=== PATIENT | female | born 1970 | race Caucasian/White ===

== ENCOUNTER 2021-11-20 14:42 | Emergency (ER) | payer MEDICAID, SELFPAY ==
[2021-11-20 14:46] VITALS: BP 166/103; PULSE 94; RESP 18; TEMP 36.9; O2SAT 100; BMI 22.8
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
[2021-11-20 15:46] VITALS: BP 144/109; PULSE 90
== END 2021-11-20 15:46 | disposition home or self-care (01) ==
PROVIDERS: Emergency Provider Emergency Medicine; Visit Provider Emergency Medicine
DX: Z04.1 Encounter for examination and observation following transport accident (principal); I10 Essential (primary) hypertension; F17.210 Nicotine dependence, cigarettes, uncomplicated; V48.5XXA Car driver injured in noncollision transport accident in traffic accident, 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
CPT/HCPCS: 99284

== ENCOUNTER 2022-07-30 21:03 | Emergency (ER) | payer MEDICAID, SELFPAY ==
[2022-07-30 21:04] VITALS: BP 163/96; PULSE 91; RESP 18; TEMP 36.5; O2SAT 100; O2SAT 96; BMI 27.1
--- NOTE | 2022-07-30 21:29 | CT_ITS ---
INDICATION: Pain EXAMINATION: CT Head or Brain W/O Contrast Injection TECHNIQUE: Multiple axial images were obtained of the head without intravenous contrast. A radiation dose optimization technique was used for this scan. IV Contrast dosage and agent: None. COMPARISON: None FINDINGS: BRAIN PARENCHYMA: No intra- or extra-axial hemorrhage. No evidence of acute major territorial infarct. No intracranial mass or mass effect. There is preservation of the vazquez/white matter interface. Posterior fossa structures are unremarkable. CSF SPACES: Appropriate for age. No hydrocephalus. Basal cisterns are patent. CALVARIUM, SKULL BASE, PARANASAL SINUSES AND MASTOID AIR CELLS: Calvarium is intact. No acute findings within imaged paranasal sinuses. Mastoid air cells are well-pneumatized. ORBITS: Unremarkable. CT/Brain/Head without Contrast IMPRESSION: Negative unenhanced head CT Electronically Signed: Stefano Em MD at 23:30 EDT ,
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
[2022-07-30] MEDS: 0.9% Normal Saline 1,000 ML 999 ML IV (22:58)
[2022-07-30 23:04] VITALS: BP 132/72; PULSE 77; RESP 16; O2SAT 97
[2022-07-30] MEDS: DiphenhydrAMINE 50 MG/ML Syringe 25 MG IV (23:59)
[2022-07-30] MEDS: proCHLORPERazine 10 MG/2 ML Vial IV (23:59)
[2022-07-30] MEDS: Ketorolac 30 MG/ML Syringe IV (23:59)
[2022-07-31 00:43] VITALS: BP 123/75; PULSE 88; RESP 16; TEMP 36.8; O2SAT 97
== END 2022-07-31 00:53 | disposition home or self-care (01) ==
PROVIDERS: Emergency Provider Emergency Medicine; Visit Provider Emergency Medicine
DX: S09.90XA Unspecified injury of head, 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 (principal); F17.210 Nicotine dependence, cigarettes, uncomplicated; V43.52XA Car driver injured in collision with other type car in traffic accident, 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
CPT/HCPCS: 70450; 96361; 96374; 96375; 99285; J7030; A4216

== ENCOUNTER 2022-09-02 23:50 | Emergency (ER) | payer MEDICAID, SELFPAY ==
[2022-09-02 23:52] VITALS: BP 156/104; PULSE 103; RESP 18; TEMP 36.3; O2SAT 99; BMI 26.4
--- NOTE | 2022-09-03 00:04 | CT_ITS ---
EXAM: CT ABDOMEN AND PELVIS WITHOUT INTRAVENOUS CONTRAST CLINICAL INDICATION: Kidney Stone TECHNIQUE: Helically acquired images were obtained of the abdomen and pelvis without intravenous contrast. This CT exam was performed using one or more of the following dose reduction techniques: automated exposure control, adjustment of the mA and/or kV according to patient size, and/or use of iterative reconstruction technique. RADIATION DOSE: CTDIvol = 8.2 mGy, DLP = 375.07 mGy-cm COMPARISON: No relevant prior studies available. FINDINGS: LOWER THORAX: Unremarkable. Lung bases are clear. No cardiomegaly. No significant pericardial effusion. ABDOMEN: LIVER: Unremarkable. Homogeneous. GALLBLADDER AND BILE DUCTS: Unremarkable. No calcified gallstones. No gallbladder distention or wall edema. No intra- or extrahepatic biliary ductal dilation. PANCREAS: Unremarkable. No focal cystic mass. SPLEEN: Unremarkable. Normal size without focal cystic or solid mass. ADRENALS: Unremarkable. No nodules. KIDNEYS AND URETERS: Exophytic presumed 2.1 cm cyst at the upper pole of the right kidney, Hounsfield units 18. ACR White Paper guidelines (Heryisel, et al. JACR 2018; 15(2):264-273) suggest no follow-up is necessary. Normal renal size and position. No hydronephrosis. STOMACH AND BOWEL: No oral or rectal contrast is present. Mild fluid and gas in the stomach and small bowel. Moderate stool in the proximal half of the colon, mild fluid, gas and stool in the distal colon, mild gas in the rectum. Moderate diverticulosis of the sigmoid colon, no evidence of acute diverticulitis. No stomach or bowel distention. PELVIS: APPENDIX: Nonvisualized appendix. BLADDER: Unremarkable. REPRODUCTIVE: Hysterectomy. ABDOMEN and PELVIS: INTRAPERITONEAL SPACE: Unremarkable. No ascites or other fluid collection. No free air. BONES/JOINTS: Postoperative change at the lumbosacral junction and mild grade 1 anterolisthesis of L4 with respect to L5, no evidence of high-grade spinal stenosis or destructive bone lesion. No suspicious lytic or blastic abnormality. SOFT TISSUES: Unremarkable. No discrete abdominal or pelvic wall hernia. VASCULATURE: Mild aortoiliac atherosclerotic calcification. No aneurysm or dissection. LYMPH NODES: Unremarkable. No enlarged lymph nodes. OTHER FINDINGS: None. CT/Abdomen/Pelvis without Cont IMPRESSION: 1. Nonspecific findings. 2. No urinary tract stones or hydronephrosis. 3. Hysterectomy. Nonvisualized appendix. 4. Moderate stool in the proximal half of the colon. Moderate sigmoid diverticulosis. No evidence of diverticulitis. 5. Postoperative spine changes and L4 spondylolisthesis. Electronically Signed: Sarita Simmons MD at 1:59 EDT ,
--- NOTE | 2022-09-03 00:05 | EX.ED.DYSGE1 ---
HPI History of Present Illness Chief Complaint: Other, Pain/Inj Narrative Narrative: Patient here with friend sent over from urgent care. Intermittent left flank pain for 2 days wraps around her abdomen at times. No nausea or vomiting. States decreased urine output states only urinated once since yesterday. Denies history of kidney failure. Denies swelling. Denies history of kidney stones. 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 History of anxiety. States she does not take all her medications. She is on Celebrex and gabapentin for her neck. Denies fevers or chills. Went to urgent care states pain started to the right side. No trauma. No pain down her legs. No loss of bowel or bladder control. Prior similar symptoms: No PFSH PFSH Home Medications cefuroxime axetil 500 mg tablet 500 mg PO BID #14 tabs 09/03/22 [Rx Last Taken Unknown] Allergy/AdvReac Type Severity Reaction Status Date / Time acetaminophen [From Vicodin] Allergy Rash Verified 09/02/22 23:52 hydrocodone [From Vicodin] Allergy Rash Verified 09/02/22 23:52 soap Allergy Hives Verified 09/02/22 23:52 tramadol Allergy Rash Verified 09/02/22 23:52 Social History Smoking Status: Current every day smoker tobacco type: cigarettes ROS ROS ED Constitutional Constitutional ED: Denies chills, fever(s) or sweats Eyes Eyes: Denies change in vision ENT ENT ED: Denies dysphagia or sore throat Cardiovascular Cardiovascular: Denies chest pain, leg edema, palpitations or racing heartbeat Respiratory/Chest Respiratory/Chest: Denies cough, dyspnea or dyspnea on exertion Gastrointestinal Gastrointestinal: Denies abdominal pain, diarrhea, nausea or vomiting Genitourinary Genitourinary ED: Reports other Details: Decreased urine output ; Denies dysuria, hematuria or urinary frequency Musculoskeletal Musculoskeletal: Reports back pain; Denies extremity pain or neck pain Integumentary Denies rash or wounds Neurologic Neurologic: Denies headache(s), paresthesias or weakness EXAM Physical Exam Const Vital Signs: 09/02/22 23:52 09/03/22 00:06 Temperature 97.3 F L Temperature Source Temporal Pulse Rate 103 H Respiratory Rate 18 Respiratory Effort Normal Non-Labored Blood Pressure 156/104 H Blood Pressure Mean 121 Pulse Ox 99 Positive well nourished and well developed General Appearance ED: well developed and NAD HEENT Reports moist mucous membranes normocephalic and atraumatic Eyes PERRL, EOMs intact bilaterally and conjunctivae normal General Eye ED: Yes normal appearance of both eyes Neck no lymphadenopathy and supple General: Negative for tenderness Chest Wall Chest: Negative for tenderness Resp normal respiratory effort and normal air movement Effort and Inspection: symmetric chest movement; Negative for respiratory distress Cardio regular rate, regular rhythm and no murmurs Peripheral Pulses: pulses 2+ throughout GI normal to inspection, nondistended, normoactive bowel sounds and non-tender Palpation: Negative for guarding or rebound tenderness present Back/Spine no CVA tenderness and no thoracic nor lumbar tenderness Back/Spine Narrative: Healed previous scar lower lumbar, no CVA tenderness, no rash. Extremity normal to inspection General Extremety ED: Negative for edema or tenderness General Extremity: Negative for edema Neuro oriented x3 and no sensory deficits noted Sensorium / Orientation: awake and alert Skin no rashes or lesions noted and no wounds MDM MDM MDM Narrative Medical decision making narrative: Interventions / MDM: Differential diagnosis: ESCOBAR, UTI, kidney stones Diagnosis considered but do not suspect: N/A My EKG interpretation: N/A Imaging independently reviewed and interpreted by myself: CT abdomen pelvis: No obstructive uropathy. External documents reviewed: N/A Test considered but not ordered:N/A ED course: Patient declines any pain medications currently. We will start IV fluids we will check labs and urine. CT flank ordered for further evaluation. 0115: Patient requested privacy, had her friend stepped out. 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 She does not feel any threats at the home. CT scan interpreted by myself shows no acute process, no obstructive uropathy. Normal kidney function with a creatinine 0.87. White count 11.9 no left shift. Urine did not nitrites along with leukocytes. Urine culture sent. She is covered Rocephin IV antibiotic, will start Toradol which she agrees. Discussed complicated UTI coverage. Discussed monitoring for rash for shingles. Re-evaluation: 0225: Patient feeling much better she still states she is sleepy. Pains controlled. Status post antibiotics. Prescription cefuroxime sent to her pharmacy should continue Celebrex. Outpatient follow-up with return precautions. All questions were answered. Disposition discussed with patient/family/significant other: Patient Case discussed with consulting clinician: N/A This note was generated with [employer] dictation software. It may contain incorrect words, spelling, and punctuation that were not noted in checking the note before signing. Lab Data Labs: Laboratory Results - last 24 hr 09/03/22 00:19 WBC 11.9 H RBC 4.74 Hgb 14.1 Hct 43.5 MCV 91.8 MCH 29.7 MCHC 32.4 RDW Std Deviation 42.2 RDW Coeff of Tay 12.6 Plt Count 341 MPV 9.5 Immature Gran % (Auto) 0.300 Neut % (Auto) 60.2 Lymph % (Auto) 28.7 [place] % (Auto) 9.5 Eos % (Auto) 0.8 Baso % (Auto) 0.5 Absolute Neuts (auto) 7.1 Absolute Lymphs (auto) 3.40 Nucleated RBC % 0 Sodium 137 Potassium 3.6 Chloride 105 Carbon Dioxide 24.0 Anion Gap 8 BUN 12 Creatinine 0.87 Estim Creat Clear Calc 59.15 Est GFR (MDRD) Af Amer 88 Est GFR (MDRD) Non-Af 72 BUN/Creatinine Ratio 13.8 Glucose 210 H Calcium 9.2 Urine Color Yellow Urine Clarity Clear Urine pH 5.0 Ur Specific [place] 1.025 Urine Protein 15 H Urine Glucose (UA) Normal Urine Ketones Negative Urine Occult Blood 10 H Urine Nitrite Positive H Urine Bilirubin Negative Urine Urobilinogen Normal Ur Leukocyte Esterase 25 H Urine RBC 0-5 SEEN Urine WBC 0-5 SEEN Ur Squamous Epith Cells 0 SEEN Calcium Oxalate Crystal 1+ Urine Bacteria 3+ Urine Mucus 0 SEEN Radiography Diagnostic Testing: Clinical Impression(s) from Imaging Studies Abdomen/Pelvis CT 09/03/22 00:04 IMPRESSION: 1. Nonspecific findings. 2. No urinary tract stones or hydronephrosis. 3. Hysterectomy. Nonvisualized appendix. 4. Moderate stool in the proximal half of the colon. Moderate sigmoid diverticulosis. No evidence of diverticulitis. 5. Postoperative spine changes and L4 spondylolisthesis. Electronically Signed: Sarita Simmons MD at 1:59 EDT , Discharge Plan Triage Chief Complaint: Other, Pain/Inj ED Provider: Mikel Downs Dx/Rx/DC Orders Clinical Impression: Acute flank pain, Complicated urinary tract infection, Renal cyst, right Instructions: ED Pyelonephritis, Female (Adult) Prescriptions: New cefuroxime axetil 500 mg tablet 500 mg PO BID Qty: 14 0RF Primary Care Provider: Mavis Griffin Referrals: Care Physician,No Primary [Non-Staff] - Mavis Griffin, [employer] [Primary Care Provider] - 1 Week if not improving Activity Restrictions/Additional Instructions: Urine with noted infection. Creatinine needing 0.87. White count 11.9. Glucose 210. CT scan abdomen pelvis was negative for kidney stones. Noted 2.1 cm right renal cyst. Status post Rocephin IV. Take and finish your antibiotic as prescribed. Continue your Celebrex. Follow-up with your doctor. Return if worsening symptoms. Disposition Disposition: Home, Self Care
[2022-09-03] MEDS: 0.9% Normal Saline 1,000 ML 999 ML IV (00:23)
[2022-09-03 00:26] LABS: Mucous, Urine 0 SEEN /hpf (<or=2+); Squamous Epithelial Cells - UA 0 SEEN /hpf (5-10)
[2022-09-03 00:27] LABS: Absolute Neutrophil Count 7.1 X10^3/uL (2.0-7.7); Basophil# 0.06 X10^3/uL; Basophil% 0.5 % (0-1); Eosinophils% 0.8 % (0-5); Hematocrit 43.5 % (37-47); Hemoglobin 14.1 g/dL (12.0-15.0); Lymphocyte % 28.7 % (19-41); Mean Corp Hgb Conc 32.4 g/dL (32-36); Mean Corpuscular Hgb 29.7 pg (27.0-32.0); Mean Corpuscular Volume 91.8 fL (81-99); Mean Platelet Vol. 9.5 fl (6.2-12.0); Monocyte# 1.12 X10^3/uL; Monocyte% 9.5 % (0-10); NRBC Flagged by Analyzer 0 % (0-5); Neutrophil # 7.13 X10^3/uL (2.7-7.7); Neutrophil % 60.2 % (47-70); Platelet Count 341 K/mm3 (150-450); RBC Distribution Width CV 12.6 % (11.6-14.6); RBC Distribution Width SD 42.2 fl (35.1-43.9); Red Blood Count 4.74 M/mm3 (4.2-5.4); White Blood Count 11.9 K/mm3 (4.4-11.0)
[2022-09-03 00:40] LABS: Anion Gap 8 (5-15); BUN 12 mg/dL (7-18); BUN/Creat Ratio 13.8 RATIO (10-20); Calcium,Total 9.2 mg/dL (8.5-10.1); Chloride 105 mmol/L (98-107); Color, Urine Yellow (Yellow); Creatinine, Serum 0.87 mg/dL (0.55-1.02); EST Glomerular Filtration Rate 72 mL/min (>60); Est Glom Filt Rate - Afr Amer 88 mL/min (>60); Estimated Creatinine Clearance 59.15 ml/min; Glucose 210 mg/dL (74-106); Glucose, Dipstick Normal (Normal); Ketone-Dipstick Negative (Negative); Leukocyte Esterase-Dipstick 25 /ul (Negative); Nitrite-Dipstick Positive (Negative); Occult Blood-Urine 10 /ul (Negative); Potassium 3.6 mmol/L (3.5-5.1); Protein-Dipstick 15 mg/dl (Negative); Sodium Level 137 mmol/L (136-145); Specific Gravity, Urine 1.025 (1.002-1.030); Urine Bilirubin Dipstick Negative (Negative); Urine Clarity Clear (Clear); Urine Urobilinogen Normal (Normal)
[2022-09-03 01:09] LABS: Bacteria 3+ /hpf (None Seen); Calcium Oxalate Crystals Ur 1+ /hpf (<or=2+); Red Blood Cells-Urine 0-5 SEEN /hpf (0-5); White Blood Cells 0-5 SEEN /hpf (0-5)
[2022-09-03] MEDS: Ketorolac 15 MG/ML Vial IV (01:38)
[2022-09-03] MEDS: Ceftriaxone 1 GM/50 ML BAG IV (01:39)
[2022-09-03 01:50] VITALS: RESP 16
== END 2022-09-03 02:39 | disposition home or self-care (01) ==
PROVIDERS: Emergency Provider Emergency Medicine; PCP Nurse Practitioner Family; Visit Provider Emergency Medicine
DX: R10.9 Unspecified abdominal pain (principal); N39.0 Urinary tract infection, site not specified; N28.1 Cyst of kidney, acquired; F17.210 Nicotine dependence, cigarettes, uncomplicated
CPT/HCPCS: 74176; 80048; 81001; 85025; 87077; 87086; 87088; 87186; 96365; 96375; 99283; J7030; J7040; A4216

== ENCOUNTER → 2023-08-22 | Outpatient (CLI) | payer MEDICAID, SELFPAY ==
[2023-08-22 12:32] LABS: Absolute Lymphocyte Count 2.64 X10^3/uL (0.83-4.51); Absolute Neutrophil Count 5.4 X10^3/uL (2.0-7.7); Basophil# 0.08 X10^3/uL; Basophil% 0.9 % (0-1); Eosinophil# 0.06 X10^3/uL; Eosinophils% 0.7 % (0-5); Hematocrit 41.4 % (37-47); Hemoglobin 13.6 g/dL (12.0-15.0); Lymphocyte # 2.64 X10^3/ul (0.83-4.51); Lymphocyte % 30.3 % (19-41); Mean Corp Hgb Conc 32.9 g/dL (32-36); Mean Corpuscular Hgb 28.5 pg (27.0-32.0); Mean Corpuscular Volume 86.8 fL (81-99); Mean Platelet Vol. 10.3 fl (6.2-12.0); Monocyte% 5.7 % (0-10); NRBC Flagged by Analyzer 0 % (0-5); Neutrophil # 5.39 X10^3/uL (2.7-7.7); Neutrophil % 62.1 % (47-70); Platelet Count 299 K/mm3 (150-450); RBC Distribution Width CV 12.4 % (11.6-14.6); RBC Distribution Width SD 39.2 fl (35.1-43.9); Red Blood Count 4.77 M/mm3 (4.2-5.4); White Blood Count 8.7 K/mm3 (4.4-11.0)
[2023-08-22 13:00] LABS: Vitamin D,25 Hydroxy 23.7 ng/mL
[2023-08-22 13:10] LABS: ALB/GLOB Ratio 1.1 RATIO (0.9-2.4); AST(SGOT) 10 U/L (15-37); Alanine Aminotransfer ALT/SGPT 23 U/L (13-56); Albumin, Serum 3.6 g/dL (3.2-5.0); Alkaline Phosphatase 182 U/L (45-117); Anion Gap 7 (5-15); BUN 8 mg/dL (7-18); BUN/Creat Ratio 11.9 RATIO (10-20); Calcium,Total 9.2 mg/dL (8.5-10.1); Chloride 102 mmol/L (98-107); Cholesterol 117 mg/dL (200); Creatinine, Serum 0.67 mg/dL (0.55-1.02); EST Glomerular Filtration Rate 97 mL/min (>60); Est Glom Filt Rate - Afr Amer 117 mL/min (>60); Globulin 3.3 g/dL (2.2-4.2); Glucose 404 mg/dL (74-106); High Density Lipoprotein 37 mg/dL; Potassium 3.6 mmol/L (3.5-5.1); Protein, Total 6.9 g/dL (6.4-8.2); Sodium Level 135 mmol/L (136-145); Thyroid Stim Hormone (TSH) 1.05 uIU/mL (0.358-3.74); Triglycerides 101 mg/dL; Very Low Density Lipoprotein 20 mg/dL (5-40)
== END | disposition home or self-care (01) ==
LOC: VSLAB 10:43
PROVIDERS: PCP Nurse Practitioner Family; Visit Provider Nurse Practitioner Family
DX: E11.65 Type 2 diabetes mellitus with hyperglycemia (principal); E55.9 Vitamin D deficiency, unspecified
CPT/HCPCS: 36415; 80053; 80061; 82043; 82306; 84443; 85025

== ENCOUNTER → 2023-12-05 | Outpatient (CLI) | payer MEDICAID, SELFPAY ==
[2023-12-05 12:55] LABS: Absolute Lymphocyte Count 2.17 X10^3/uL (0.83-4.51); Absolute Neutrophil Count 7.8 X10^3/uL (2.0-7.7); Basophil# 0.11 X10^3/uL; Eosinophil# 0.07 X10^3/uL; Eosinophils% 0.6 % (0-5); Hematocrit 43.1 % (37-47); Hemoglobin 13.8 g/dL (12.0-15.0); Lymphocyte # 2.17 X10^3/ul (0.83-4.51); Mean Corpuscular Hgb 28.4 pg (27.0-32.0); Mean Corpuscular Volume 88.7 fL (81-99); Mean Platelet Vol. 9.7 fl (6.2-12.0); Monocyte# 0.63 X10^3/uL; Monocyte% 5.8 % (0-10); NRBC Flagged by Analyzer 0 % (0-5); Neutrophil # 7.81 X10^3/uL (2.7-7.7); Neutrophil % 72.1 % (47-70); Platelet Count 339 K/mm3 (150-450); RBC Distribution Width CV 12.6 % (11.6-14.6); RBC Distribution Width SD 40.5 fl (35.1-43.9); Red Blood Count 4.86 M/mm3 (4.2-5.4); White Blood Count 10.8 K/mm3 (4.4-11.0)
[2023-12-05 13:09] LABS: Vitamin D,25 Hydroxy 35.3 ng/mL
[2023-12-05 13:43] LABS: AST(SGOT) 18 U/L (15-37); Alanine Aminotransfer ALT/SGPT 28 U/L (13-56); Albumin, Serum 3.5 g/dL (3.2-5.0); Alkaline Phosphatase 177 U/L (45-117); Anion Gap 9 (5-15); BUN 12 mg/dL (7-18); BUN/Creat Ratio 16.1 RATIO (10-20); Calcium,Total 9.3 mg/dL (8.5-10.1); Chloride 102 mmol/L (98-107); Creatinine, Serum 0.75 mg/dL (0.55-1.02); EST Glomerular Filtration Rate 86 mL/min (>60); Est Glom Filt Rate - Afr Amer 104 mL/min (>60); Globulin 3.6 g/dL (2.2-4.2); Glucose 371 mg/dL (74-106); Potassium 4.1 mmol/L (3.5-5.1); Protein, Total 7.1 g/dL (6.4-8.2); Sodium Level 132 mmol/L (136-145); Thyroid Stim Hormone (TSH) 0.815 uIU/mL (0.358-3.740)
== END | disposition home or self-care (01) ==
LOC: VSLAB 09:04
PROVIDERS: PCP Nurse Practitioner Family; Visit Provider Nurse Practitioner Family
DX: E11.65 Type 2 diabetes mellitus with hyperglycemia (principal); E55.9 Vitamin D deficiency, unspecified; I10 Essential (primary) hypertension; R10.9 Unspecified abdominal pain
CPT/HCPCS: 36415; 80053; 82306; 84443; 85025

== ENCOUNTER → 2024-01-03 | Outpatient (CLI) | payer MEDICAID, SELFPAY ==
[2024-01-03 12:24] LABS: Bacteria 0 SEEN /hpf (None Seen); Mucous, Urine 0 SEEN /hpf (<or=2+); White Blood Cells 0 SEEN /hpf (0-5)
[2024-01-03 12:45] LABS: Absolute Neutrophil Count 5.7 X10^3/uL (2.0-7.7); Basophil# 0.08 X10^3/uL; Basophil% 0.8 % (0-1); Eosinophil# 0.06 X10^3/uL; Eosinophils% 0.6 % (0-5); Hematocrit 43.8 % (37-47); Hemoglobin 14.4 g/dL (12.0-15.0); Lymphocyte % 31.8 % (19-41); Mean Corp Hgb Conc 32.9 g/dL (32-36); Mean Corpuscular Hgb 28.9 pg (27.0-32.0); Mean Platelet Vol. 9.5 fl (6.2-12.0); Monocyte% 8.2 % (0-10); NRBC Flagged by Analyzer 0 % (0-5); Neutrophil # 5.68 X10^3/uL (2.7-7.7); Neutrophil % 58.4 % (47-70); Platelet Count 335 K/mm3 (150-450); RBC Distribution Width CV 12.8 % (11.6-14.6); RBC Distribution Width SD 41.6 fl (35.1-43.9); Red Blood Count 4.98 M/mm3 (4.2-5.4); White Blood Count 9.7 K/mm3 (4.4-11.0)
[2024-01-03 13:13] LABS: Microalbumin,Random Urine 21.9 mg/L (NO RANGE EST.)
[2024-01-03 13:29] LABS: AST(SGOT) 16 U/L (15-37); Alanine Aminotransfer ALT/SGPT 23 U/L (13-56); Albumin, Serum 3.5 g/dL (3.2-5.0); Alkaline Phosphatase 162 U/L (45-117); Anion Gap 6 (5-15); BUN 13 mg/dL (7-18); Calcium,Total 9.2 mg/dL (8.5-10.1); Chloride 108 mmol/L (98-107); Creatinine, Serum 0.72 mg/dL (0.55-1.02); EST Glomerular Filtration Rate 89 mL/min (>60); Est Glom Filt Rate - Afr Amer 108 mL/min (>60); Globulin 3.6 g/dL (2.2-4.2); Glucose 125 mg/dL (74-106); Potassium 3.7 mmol/L (3.5-5.1); Protein, Total 7.1 g/dL (6.4-8.2); Sodium Level 138 mmol/L (136-145)
[2024-01-03 22:30] LABS: Color, Urine Yellow (Yellow); Glucose, Dipstick Normal (Normal); Ketone-Dipstick 5 mg/dl (Negative); Leukocyte Esterase-Dipstick Negative /ul (Negative); Nitrite-Dipstick Negative (Negative); Occult Blood-Urine Negative /ul (Negative); Protein-Dipstick 30 mg/dl (Negative); Specific Gravity, Urine 1.025 (1.002-1.030); Urine Bilirubin Dipstick Negative (Negative); Urine Clarity Cloudy (Clear); Urine Urobilinogen Normal (Normal)
[2024-01-03 22:37] LABS: Amorphous Sediment 4+; Calcium Oxalate Crystals Ur 1+ /hpf (<or=2+); Red Blood Cells-Urine 0-5 SEEN /hpf (0-5); Squamous Epithelial Cells - UA 0-5 SEEN /hpf (5-10)
== END | disposition home or self-care (01) ==
PROVIDERS: PCP Nurse Practitioner Family; Visit Provider Nurse Practitioner Family
DX: E11.65 Type 2 diabetes mellitus with hyperglycemia (principal); E55.9 Vitamin D deficiency, unspecified; I10 Essential (primary) hypertension; R10.9 Unspecified abdominal pain
CPT/HCPCS: 36415; 80053; 81001; 82043; 82306; 84443; 85025

== ENCOUNTER 2024-04-09 12:17 | Emergency (ER) | payer MEDICAID, SELFPAY ==
[2024-04-09] VITALS (7 sets, daily range): BP systolic 103–157; BP diastolic 64–118; PULSE 78–110; RESP 13–19; TEMP 36.6–36.7; O2SAT 96–100; BMI 23.1
--- NOTE | 2024-04-09 12:37 | EKG12_ITS ---
Test Reason : cp Blood Pressure : */* mmHG Vent. Rate : 97 BPM Atrial Rate : 97 BPM P-R Int : 134 ms QRS Dur : 80 ms QT Int : 366 ms P-R-T Axes : 76 69 74 degrees QTcB Int : 464 ms Normal sinus rhythm Biatrial enlargement Nonspecific ST abnormality Abnormal ECG No previous ECGs available Confirmed by SEA WARD, ALEX ([id number]), index editor NANDINI GONZALES ([id number]) on 04/15/2024 8:24:31 AM Referred By: [facility] Confirmed By: ALEX OSEI MD
[2024-04-09 12:57] LABS: Absolute Lymphocyte Count 2.52 X10^3/uL (0.83-4.51); Absolute Neutrophil Count 6.2 X10^3/uL (2.0-7.7); Basophil# 0.07 X10^3/uL; Basophil% 0.7 % (0-1); Eosinophil# 0.09 X10^3/uL; Eosinophils% 0.9 % (0-5); Hematocrit 39.8 % (37-47); Hemoglobin 13.7 g/dL (12.0-15.0); Lymphocyte # 2.52 X10^3/ul (0.83-4.51); Lymphocyte % 26.5 % (19-41); Mean Corp Hgb Conc 34.4 g/dL (32-36); Mean Corpuscular Hgb 28.9 pg (27.0-32.0); Mean Platelet Vol. 9.5 fl (6.2-12.0); Monocyte# 0.64 X10^3/uL; Monocyte% 6.7 % (0-10); NRBC Flagged by Analyzer 0 % (0-5); Neutrophil # 6.16 X10^3/uL (2.7-7.7); Neutrophil % 64.8 % (47-70); Platelet Count 256 K/mm3 (150-450); RBC Distribution Width CV 12.1 % (11.6-14.6); RBC Distribution Width SD 36.8 fl (35.1-43.9); Red Blood Count 4.74 M/mm3 (4.2-5.4); White Blood Count 9.5 K/mm3 (4.4-11.0)
--- NOTE | 2024-04-09 12:59 | RAD_ITS ---
PROCEDURE: CHEST 1 VIEW (PORTABLE) REASON FOR EXAM: Chest pain. TECHNIQUE: Frontal view of the chest. COMPARISON: None. FINDINGS: The cardiac and mediastinal contours are normal. No acute consolidation, pleural effusion or pneumothorax. The visualized osseous structures demonstrate no acute abnormality. RAD/Chest 1 View (Portable) IMPRESSION: No acute consolidation, pleural effusion or pneumothorax. Reading Location: [id number]
[2024-04-09 13:28] LABS: Anion Gap 8 (5-15); BUN 10 mg/dL (7-18); BUN/Creat Ratio 11.8 RATIO (10-20); Chloride 100 mmol/L (98-107); Creatinine, Serum 0.85 mg/dL (0.55-1.02); EST Glomerular Filtration Rate 74 mL/min (>60); Est Glom Filt Rate - Afr Amer 90 mL/min (>60); Estimated Creatinine Clearance 59.15 ml/min; Glucose 478 mg/dL (74-106); Potassium 3.8 mmol/L (3.5-5.1); Sodium Level 133 mmol/L (136-145); Troponin-I HS (w/2H Reflex) 4 pg/mL (3.0-54.0)
--- NOTE | 2024-04-09 14:13 | ED.VIS.CHEST ---
HPI History of Present Illness Chief Complaint: Chest Pain Narrative Narrative: 54-year-old female presents with chest pain that started this morning. She has past medical history and states that her elevated blood sugars have been happening for months/weeks. This morning she awoke and was very dizzy and lightheaded, and she developed chest pain and pressure. She saw her primary care provider who sent her to the emergency department. She is a smoker, but states she has not had a stress test. She may have been nauseated and feels short of breath. No diaphoresis. No other exacerbating or alleviating factors. PFSH PFSH Home Medications ?Medication ?Instructions ?Recorded ?Last Taken ?Type cefuroxime axetil 500 mg tablet 500 mg PO BID #14 tabs 09/03/22 Unknown Rx Allergy/AdvReac Type Severity Reaction Status Date / Time soap Allergy Hives Verified 04/09/24 13:48 tramadol Allergy Rash Verified 04/09/24 13:48 Social History Smoking Status: Current every day smoker tobacco type: cigarettes ROS ROS ED ROS Narrative Review of systems positive for chest pressure, other times sharp and stabbing. Positive nausea but no vomiting. No diaphoresis. Mild shortness of breath. Continually elevated blood sugars times weeks. EXAM Physical Exam Narrative Exam Narrative: Afebrile. Vital signs noted. Nontoxic-appearing. Cardiovascular examination on my examination reveals a regular rate and rhythm. Lungs clear to auscultation bilaterally. Abdomen is soft and nontender without guarding or rebound. Positive bowel sounds. Neurological examination nonfocal and nonlateralizing. Const Vital Signs: 04/09/24 12:18 04/09/24 12:30 04/09/24 12:30 Temperature 97.8 F Temperature Source Oral Pulse Rate 110 H Respiratory Rate 18 Respiratory Effort Normal Non-Labored Normal Non-Labored Respiratory Pattern Normal Blood Pressure 157/118 H Blood Pressure Mean 131 Pulse Ox 100 Oxygen Delivery Method Room Air 04/09/24 12:37 04/09/24 13:45 04/09/24 14:00 Temperature Temperature Source Pulse Rate 88 91 Respiratory Rate 19 H 16 Respiratory Effort Respiratory Pattern Blood Pressure 140/79 H 142/95 H Blood Pressure Mean 99 110 Pulse Ox 100 96 100 Oxygen Delivery Method Room Air Room Air Room Air 04/09/24 15:19 04/09/24 16:07 Temperature Temperature Source Pulse Rate 82 83 Respiratory Rate 13 14 Respiratory Effort Respiratory Pattern Blood Pressure 148/80 H 103/64 Blood Pressure Mean 102 77 Pulse Ox 99 98 Oxygen Delivery Method Room Air Room Air MDM MDM MDM Narrative Medical decision making narrative: Differential diagnosis includes but not limited to ACS/STEMI versus non-STEMI. Chest pain could also be secondary to nonspecific chest pain versus pneumothorax versus pneumonia. I have a low suspicion for aortic dissection as she has no tearing back pain. Comprehensive workup was pursued. EKG obtained and interpreted by myself independently as normal sinus rhythm at 97 bpm without ectopy or acute ST changes. No STEMI. I reviewed her laboratory work and she has normal white count 9.5 with hemoglobin 13.7, hematocrit 39.8, platelet count 256. Electrolyte panel shows sodium low 133 with potassium normal 3.8, BUN of 10 and creatinine 0.85. While glucose is elevated at 478, her normal anion gap of 8 leads me to have very low suspicion for diabetic ketoacidosis. Initial high-sensitivity troponin is 4. Chest x-ray in 1 view interpreted by myself independently shows no evidence of pneumothorax or pneumonia. I reviewed the radiology report which confirms my independent interpretation. Upon repeat examination, patient states she still having more electric shock type pain down her left arm. I think is probably more of a diabetic neuropathy. She was given gabapentin 100 mg here orally but told that she should get a prescription from her primary care provider as I suspect more of a neuropathic pain. Regarding her elevated blood sugar, she was bolused normal saline 1 L intravenously, and given 6 units of insulin subcutaneously. Her [id number] glucose was 363 around the time of administration. Her blood sugar will be rechecked but is already trending downwards. Her repeat troponin is normal at 5 for a acceptable delta troponin. At this point in time, I do feel she is safe for outpatient stress testing. She will follow-up with her primary care provider. Return instructions to the emergency department were reviewed. Disposition is discharged home in stable condition. History & Record Review Discussion w/independent historian: Patient Lab Data Attestation: I reviewed the patient's lab results. Labs: Laboratory Results - last 24 hr 04/09/24 04/09/24 04/09/24 12:46 15:17 15:38 WBC 9.5 RBC 4.74 Hgb 13.7 Hct 39.8 MCV 84.0 MCH 28.9 MCHC 34.4 RDW Std Deviation 36.8 RDW Coeff of Tay 12.1 Plt Count 256 MPV 9.5 Immature Gran % (Auto) 0.400 Neut % (Auto) 64.8 Lymph % (Auto) 26.5 [place] % (Auto) 6.7 Eos % (Auto) 0.9 Baso % (Auto) 0.7 Absolute Neuts (auto) 6.2 Absolute Lymphs (auto) 2.52 Nucleated RBC % 0 Sodium 133 L Potassium 3.8 Chloride 100 Carbon Dioxide 25.0 Anion Gap 8 BUN 10 Creatinine 0.85 Estim Creat Clear Calc 59.15 Est GFR (MDRD) Af Amer 90 Est GFR (MDRD) Non-Af 74 BUN/Creatinine Ratio 11.8 Glucose 478 H* Calcium 9.0 Troponin I High Sens 4 5 POC Glucose 363 H Radiography Diagnostic Testing: Clinical Impression(s) from Imaging Studies Chest X-Ray 04/09/24 12:59 IMPRESSION: No acute consolidation, pleural effusion or pneumothorax. Reading Location: [facility] Discharge Plan Triage Chief Complaint: Chest Pain Other Complaint: Hypertension ED Provider: Francisco Martins Dx/Rx/DC Orders Clinical Impression: Chest pain, Hyperglycemia, Left arm pain Instructions: ED Chest Pain, Uncertain Cause, ED Diabetic Hyperglycemia, ED Pain, Acute, Uncertain Cause Prescriptions: No Action cefuroxime axetil 500 mg tablet 500 mg PO BID Qty: 14 0RF Primary Care Provider: Pauline Dawson Referrals: Pauline Dawson, [employer] [Primary Care Provider] - 3-5 Days Activity Restrictions/Additional Instructions: Follow-up with your primary care provider regarding outpatient stress testing for your chest pain. Return to the emergency department with increased pain, new or worsening symptoms. You may want to inquire about medications for diabetic neuropathy as well. Print Language: Lithuanian Disposition Disposition: Home, Self Care
[2024-04-09 14:49] LABS: Reflex Troponin-HS? (from REC) Y
[2024-04-09] MEDS: 0.9% Normal Saline (1000mL) 1,000 ML 999 ML IV (15:30)
[2024-04-09] MEDS: Insulin Lispro 100 UNIT/ML INSULN.PEN 6 UNIT SC (15:32)
[2024-04-09 15:56] LABS: Troponin-I HS 5 pg/mL (3.0-54.0)
[2024-04-09 15:58] LABS: Bedside Glucose 363 mg/dL (74-106)
[2024-04-09 16:49] LABS: Bedside Glucose 300 mg/dL (74-106)
== END 2024-04-09 16:45 | disposition home or self-care (01) ==
PROVIDERS: Emergency Provider Emergency Medicine; PCP Nurse Practitioner Family; Visit Provider Emergency Medicine
DX: R07.89 Other chest pain (principal); M79.602 Pain in left arm; R73.9 Hyperglycemia, unspecified; F17.210 Nicotine dependence, cigarettes, uncomplicated
CPT/HCPCS: 71045; 80048; 82962; 84484; 85025; 93005; 96360; 96372; 99285

== ENCOUNTER 2025-01-21 18:51 | Emergency (ER) | payer MEDICAID, SELFPAY ==
[2025-01-21 18:53] VITALS: BP 116/90; PULSE 100; RESP 18; TEMP 36.1; O2SAT 99
--- NOTE | 2025-01-21 19:35 | RAD_ITS ---
PROCEDURE: TIBIA FIBULA 2 VIEWS 01/21/2025 REASON FOR EXAM: PAIN, FALL TECHNIQUE: Procedure Code: RADTF Modality: DX Procedure: TIBIA FIBULA 2 VIEWS Laterality: Left COMPARISON: None. FINDINGS: BONES: No acute fracture or focal osseous lesion. Small achilles tendon insertional enthesophyte. JOINTS: No dislocation. The joint spaces are normal. SOFT TISSUES: Small soft tissue calcifications noted in the lateral calf and distal jain. RAD/Tibia & Fibula 2 Views IMPRESSION: NO ACUTE FRACTURE OR DISLOCATION. Reading Location: [id number]
--- NOTE | 2025-01-21 19:35 | RAD_ITS ---
PROCEDURE: ANKLE MIN 3 VIEWS 01/21/2025 REASON FOR EXAM: PAIN, FALL TECHNIQUE: Procedure Code: RADANK Modality: DX Procedure: ANKLE MIN 3 VIEWS Laterality: Left COMPARISON: None. FINDINGS: BONES: No acute fracture or focal osseous lesion. Small achilles tendon insertional enthesophyte. JOINTS: No dislocation. The joint spaces are normal. SOFT TISSUES: The soft tissues are unremarkable. RAD/Ankle min 3 Views IMPRESSION: NO ACUTE FRACTURE OR DISLOCATION. Reading Location: [id number]
--- OUTSIDE RECORDS SUMMARY | 2025-01-21 19:41 | XMS RPT_ITS | CCD ---
Author Organization [facility] Care Team Providers Care Credit Support Specialist Name Role Phone Donna Kumar Unavailable Unavailable Donna Kumar Unavailable Unavailable Jose A Aguilar Unavailable Unavailable Unavailable Primary Care Provider UnavailDonna Alvarado Primary Care Unavailable Ruben Horan Attending Unavailable Donna Kumar Referring Unavailable Zaire Talbot Attending Unavailable Zaire Talbot Attending Unavailable Elaine Mckeon Attending Unavailable CHINA Rubio Attending Unavail able Valentine Burgess Attending Unavailable Valentine Burgess Attending Unavailable Unavailable Primary Care Provider UnavailDonna Alvarado DO Primary Care Provider Ivis Head [facility], [facility] Primary Care UnavailFrancisco Ye Attending Unavailable Adilene VSC, Pauline Attending Unavailabl e Adilene VSC, Pauline Primary Care Unavailabl e Adilene VSC, Pauline Primary Care Unavailabl e Adilene VSC, Pauline Attending Unavailabl e Adilene VSC, [facility] Primary Care Unavailabl e Adilene VSC, Pauline Attending Unavailvincent e Sandor FINISHED CLOTH EXAMINER, Zebulubinu Unavailable Donna Kumar DO Primary Care Provider Renee Lau RN Unavailable Unavailable Renee Spence RN Unavailable Unavailable DONNA KUMAR Primary Care Unavailable ELVIA, CYNDEE Admitting Unavailable XI GILLESPIE Attending Unavailable CAROLA MCKINNEY Consulting Unavailable GEGE HAWKINS Consulting Unavailable JAKE JHA Consulting Unavailable ELVIA, CYNDEE Admitting Unavailable NATAHCA MOSER Consulting Unavailable REMIGIO, RAY Attending Unavailable DONNA KUMAR Primary Care Unavailable LISA CASTORENA Referring Unavailable DONNA KUMAR Primary Care Unavailable Beam FINISHED CLOTH EXAMINER, Zebulun Unavailable Rose Marie WARD, She Weyon Unavailable Brain ELAINE, Nandini Unavailable Ari ELAINE, Anastasia Unavailable Unavailable Junior WARD, Leodan Hamilton Unavailable [facility] Primary Care Unavailable MARYANNE HANNON Attending Unavailable MARYANNE HANNON Admitting Unavailable MA, SHE WEE Referring Unavailable MA, SHE WEE Referring Unavailable MA, SHE WEE Referring Unavailable ADILENE, PAULINE Primary Care Unavailable BEAM, ZEBULUN Referring Unavailable MA, SHE WEE Referring Unavailable SEO, LEODAN A Attending Unavailable MA, SHE WEE Referring Unavailable MA, SHE WEE Referring Unavailable MA, SHE WEE Referring Unavailable GISELLE MCMULLEN Attending Unavailable MA, SHE WEE Referring Unavailable [facility] Primary Care Unavailable MA, SHE WEE Referring Unavailable ADILENE, PAULINE Primary Care Unavailable GERI HUNG Attending Unavailable BEAM, ZEBULUN Referring Unavailable ADILENE, PAULINE Primary Care Unavailable KAREN PENA Attending Unavailable [facility] Primary Care Unavailable MCGHEE, ALEXANDREA Attending Unavailable [facility] Primary Care Unavailable MA, SHE WEE Referring Unavailable ADILENE, PAULINE Primary Care Unavailable MA, SHE WEE Attending Unavailable MARIE, KAREN Referring Unavailable SEO, LEODAN A Attending Unavailable [facility] Primary Care Unavailable MCGHEE, ALEXANDREA Referring Unavailable [facility] Primary Care Unavailable MCGHEE, ALEXANDREA Attending Unavailable MCGHEE, ALEXANDREA Referring Unavailable [facility] Primary Care Unavailable MA, SHE WEE Referring Unavailable SEO, LEODAN A Attending Unavailable MA, SHE WEE Referring Unavailable MA, SHE WEE Referring Unavailable ADILENE, PAULINE Primary Care Unavailable MCGHEE, ALEXANDREA Referring Unavailable ADILENE, PAULINE Primary Care Unavailable Allergies Allergy Classification Reported Allergen(s) Allergy Type Date of Onset Reaction(s) Facility (10 sources) Acetaminophen / HYDROcodone; Translations: [HYDROCODONE-ACET AMINOPHEN] Drug Allergy 03-23-19 16 Unknown, Hives [facility] Work Phone: (13 sources) traMADol; Translations: [TRAMADOL] Drug Allergy 03-23-19 16 Rash [facility] (6 sources) Acetaminophen; Translations: [ACETAMINOPHEN] Drug Allergy 11-21-19 22 [facility] (12 sources) HYDROcodone; Translations: [HYDROCODONE] Drug Allergy 01-14-20 [facility] (2 sources) bubble bath; Translations: [BUBBLE BATH] Allergy to substance 04-22-19 21 [facility] (1 source) HYDROcodone Drug Allergy 01-14-20 [facility] (1 source) traMADol Drug Allergy 01-14-20 [facility] (20 sources) soap; Translations: [soap] Allergy to substance 04-22-19 [facility] (1 source) Acetaminophen Drug Allergy 09-03-[address] [facility] (1 source) HYDROcodone Drug Allergy 09-03-[address] [facility] (1 source) traMADol Drug Allergy 04-09-[address] [facility] Medications Current Medications Medication Drug Class(es) Dates Sig (Normalized) Sig (Original) acetaminophen 500 mg oral tablet (7 sources) Start: 10-23-2024 End: 11-22-2024 take 2 tablets by mouth three times daily in the evening acetaminophen (Tylenol) 500 MG tablet Take 2 tablets (1,000 mg) by mouth 3 times daily. 180 tablet 10/23/2024 5:20 PM EDT 10/23/2024 11/22/2024 Active Start: 10-21-2024 End: 11-22-2024 Start: 07-24-2023 End: 08-03-2023 take 1 tablet by mouth every six hours as needed for pain acetaminophen (Tylenol) 500 MG tablet Take 1 tablet (500 mg) by mouth every 6 hours as needed for mild pain (1-3) for up to 10 days. 30 tablet 0 07/24/2023 08/03/2023 Active benzonatate 100 mg oral capsule (1 source) Non-narcotic Antitussive Start: 05-17-2024 End: 05-24-2024 take 1 capsule by mouth three times daily as needed for cough benzonatate (TESSALON PERLE) 100 mg capsule Indications: Influenza Take 1 capsule by mouth three times a day as needed for cough for up to 7 days. 21 capsule 05/17/2024 05/24/2024 Active busPIRone hydrochloride 10 mg oral tablet (20 sources) Start: 10-22-2024 End: 12-23-2024 take 1 tablet by mouth twice daily busPIRone (Buspar) 10 MG tablet Take 1 tablet (10 mg) by mouth 2 times daily at 0800 and 1400. 60 tablet 1 10/23/2024 5:20 PM EDT 10/24/2024 12/23/2024 Active Start: 10-17-2024 End: 10-22-2024 cefuroxime 500 mg oral tablet (1 source) Cephalosporin Antibacterial Start: 09-03-2022 take 500 mg by mouth twice daily Cefuroxime Axetil Active 500 MG PO TWICE A DAY September 03, 2022 12:00am Continuous Glucose Sensor (FreeStyle Meka 3 Plus Sensor) misc (2 sources) Start: 10-23-2024 Continuous Glucose Sensor (FreeStyle Meka 3 Plus Sensor) misc Use as directed 1 each 10/23/2024 Active Start: 10-22-2024 Continuous Glu cose Sensor (FreeStyle Meka 3 Plus Sensor) misc 1 each every 15 days. 2 each 2 10/22/2024 Active CPAP Machine MISC (1 source) CPAP Machine MIS C by Does not apply route 0 Active docusate sodium 50 mg / sennosides, alf 8.6 mg oral tablet (7 sources) Start: 10-23-2024 End: 11-22-2024 take 2 tablets by mouth twice daily in the evening senna-docusate sodium (Senokot-S) 8.6-50 MG tablet Take 2 tablets by mouth 2 times daily. 120 tablet 10/23/2024 5:20 PM EDT 10/23/2024 11/22/2024 Active Start: 10-17-2024 End: 11-22-2024 escitalopram 10 mg oral tablet (1 source) Serotonin Reuptake Inhibitor Start: 01-12-2017 take 1 tablet by mouth once daily escitalopram (LEXAPRO) 10 MG tablet Indications: Reactive depression Take 1 tablet by mouth daily 90 tablet 3 01/12/2017 Active furosemide 40 mg oral tablet (1 source) Loop Diuretic Start: 08-04-2016 take 1 tablet by mouth once daily furosemide (LASIX) 40 MG tablet Indications: Essential hypertension Take 1 tablet by mouth daily 60 tablet 3 08/04/2016 Active gabapentin 300 mg oral capsule (20 sources) Anti-epileptic Agent Start: 10-21-2024 End: 11-22-2024 take 2 capsules by mouth three times daily in the evening gabapentin (Neurontin) 300 MG capsule Take 2 capsules (600 mg) by mouth 3 times daily. 180 capsule 10/23/2024 5:20 PM EDT 10/23/2024 11/22/2024 Active Start: 10-16-2024 End: 10-21-2024 Start: 09-16-2024 End: 10-23-2024 Start: 03-20-2017 take 1 capsule by mo uth twice daily gabapentin (NEURONTIN) 300 MG capsule Indications: RLS (restless legs syndrome) take 1 capsule by mouth twice a day 180 capsule 2 03/20/2017 Active ibuprofen 600 mg oral tablet (2 sources) Nonsteroidal Anti-inflammatory Drug Start: 07-24-2023 End: 07-31-2023 take 1 tablet by mouth every six hours as needed for pain ibuprofen 600 MG tablet Take 1 tablet (600 mg) by mouth every 6 hours as needed for mild pain (1-3) for up to 7 days. 28 tablet 0 07/24/2023 07/31/2023 Active 3 ml insulin glargine 100 unt/ml pen injector (13 sources) Insulin Analog Start: 10-23-2024 End: 12-22-2024 inject 22 [IU] by subcutaneous injection once daily insulin glargine (Lantus) 100 UNIT/ML pen Indications: Diabetic ketoacidosis without coma associated with diabetes mellitus due to underlying condition (HCC) Inject 22 Units under the skin Nightly. 6 mL 1 10/23/2024 12/22/2024 Active Start: 10-16-2024 End: 10-23-2024 insulin glargine,hum.rec.anlog (LANTUS SUBCUTANEOUS) (13 sources) inject 22 [IU] by subcutaneous injection once daily at bedtime insulin glargine,hum.rec.anlog (LANTUS SUBCUTANEOUS) Inject 22 Units subcutaneously daily at bedtime. Active 3 ml insulin lispro 100 unt/ml pen injector (20 sources) Insulin Analog Star t: 09-28 End: 11-28 inject 14 [IU] by subcutaneous injection three times daily at mealtime insulin lispro (HumaLOG) 100 UNIT/ML pen injection Inject 14 Units under the skin 3 times daily (with meals). 12 mL 1 10/23/2024 12/22/2024 Active Start: 10-16-2024 End: 10-23-2024 inject 14 [IU] by bray bcutaneous injection three times daily at mealtime insulin lispro (HUMALOG PEN SUBCUTANEOUS) Inject 14 Units subcutaneously three times a day with meals. Active lisinopril 10 mg oral tablet (19 sources) Angiotensin Converting Enzyme Inhibitor Start: 08-28-2024 End: 10-23-2024 take 1 tablet by mouth once daily lisinopril 10 MG tablet Take 10 mg by mouth daily. 08/28/2024 Active lurasidone hydrochloride 20 mg oral tablet (5 sources) Atypical Antipsychotic Start: 10-18-2024 End: 11-23-2024 take 1 tablet by mouth once daily at breakfast lurasidone (Latuda) 20 MG tablet Take 1 tablet (20 mg) by mouth daily (with breakfast). 30 tablet 10/23/2024 5:20 PM EDT 10/24/2024 11/23/2024 Active 5 ml metoprolol tartrate 1 mg/ml injection (20 sources) beta-Adrenergic Luis Eduardo Start: 10-17-2024 Start: 08-28-2024 End: 10-23-2024 take 1 tablet by mouth twice daily metoprolol tartrate (Lopressor) 25 MG tablet Take 25 mg by mouth 2 times daily. 08/28/2024 Active Start: 02-12-[address] [facility] twice daily metoprolol tartrate, short acting, (LOPRESSOR) 50 mg tablet Take 50 mg by mouth twice daily. 02/12/2018 Active Comment on above: Take 50 mg by mouth twice daily. morphine sulfate 30 mg extended release oral tablet (8 sources) Opioid Agonist Start: 11-07-19 End: 11-21-19 take 1 tablet by mouth twice daily morphine SR (MS CONTIN) 30 mg 12 hr tablet Indications: Palliative care by specialist , Cancer related pain , Cancer of pancreas, tail (HCC) Take 1 tablet by mouth two times a day for 14 days. 28 tablet 11/06/2024 11/20/2024 Active naloxone 4 mg/actuation nasal spray (NARCAN) (13 sources) Start: 11-02-19 naloxone 4 mg/actuation nasal spray (NARCAN) Use 1 spray in one nostril as needed for overdose. May repeat every 2 to 3 min in alternating nostrils until medical assistance is available 1 each 3 11/01/2024 Active omeprazole 20 mg delayed release oral capsule (17 sources) Proton Pump Inhibitor Start: 08-18-19 omeprazole (PRILOSEC) 20 mg capsule take 1 capsule by mouth twice a day , 30 MINUTES BEFORE MORNING MEAL, NEEDED 08/17/2022 Active Comment on above: take 1 capsule by [facility] twice a day , 30 MINUTES BEFORE MORNING MEAL, NEEDED oseltamivir 75 mg oral capsule (1 source) Neuraminidase Inhibitor Start: 05-18-19 End: 05-23-19 take 1 capsule by mouth twice daily oseltamivir (TAMIFLU) 75 mg capsule Indications: Influenza Take 1 capsule by mouth two times a day for 5 days. 10 capsule 05/17/2024 05/22/2024 Active oxybutynin chloride 5 mg oral tablet (4 sources) Cholinergic Muscarinic Antagonist take 1 tablet by mouth three times daily oxybutynin (Ditropan) 5 MG tablet Take 5 mg by mouth 3 times a day. Active permethrin 50 mg/ml topical cream (1 source) Pyrethroid Start: 11-09-19 permethrin (ELIMITE) 5 % cream Apply topically as directed 1 g 0 11/08/2021 Active polyethylene glycol 3350 40035 mg powder for oral solution (7 sources) Osmotic Laxative Start: 10-25-19 End: 11-24-19 polyethylene glycol, PEG, 3350 (Glycolax) 17 GM/SCOOP powder Mix 1 capful (17 grams) into 4-8oz of liquid drink once a day as needed for constipation 510 g 10/24/2024 11/23/2024 Active Start: 10-19-2024 End: 11-23-2024 prochlorperazine 10 mg oral tablet (13 sources) Phenothiazine Start: 11-01-2024 take 1 tablet by mouth every six hours as needed prochlorperazine (COMPAZINE) 10 mg tablet Take 1 tablet by mouth every 6 hours as needed. 30 tablet 3 11/01/2024 Active rOPINIRole 1 mg oral tablet (20 sources) Nonergot Dopamine Agonist Start: 10-19-2024 End: 10-23-2024 Start: 10-16-2024 End: 10-18-2024 Start: 04-29-2016 End: 11-22-2024 rOPINIRole (REQUIP) 1 mg tab let Take 1 mg by mouth. 04/29/2016 Active Comment on above: Take 1 mg by mouth. 1 mg dose 1.5 ml semaglutide 1.34 mg/ml pen injector (1 source) Semaglutide, 1 MG/DOSE, (OZEMPIC, 1 MG/DOSE,) 2 MG/1.5ML SOPN Inject into the skin once a week 0 Active sennosides, alf 8.6 mg oral tablet (13 sources) take 2 tablets by mouth twice daily Senna 8.6 mg tab Take 8.6 mg by mouth two times a day. 2 tabs Active venlafaxine 50 mg oral tablet (6 sources) Serotonin and Norepinephrine Reuptake Inhibitor Start: 09-28-19 End: 10-18-19 venlafaxine (Effexor) 50 MG tablet Take 50 mg by mouth. 09/27/2024 Active Start: 09-27-2024 (4 sources) Start: 10-23-2024 Start: 10-22-2024 Completed/Discontinued Medications Medication Drug Class(es) Dates Sig (Normalized) Sig (Original) acetaminophen 325 mg / oxyCODONE hydrochloride 5 mg oral tablet (2 sources) Opioid Agonist Start: 07-24-2023 End: 07-24-2023 oxyCODONE-acetamino phen (Percocet) 5-325 MG per tablet 1 tablet amitriptyline hydrochloride 25 mg oral tablet (6 sources) Tricyclic Antidepressant Start: 07-05-2016 End: 11-01-2024 amitriptyline (ELAVIL) 25 mg tablet 07/05/2016 11/01/2024 Discontinued (Discontinued by another Health Care Provider) aspirin 81 mg delayed release oral tablet (8 sources) Platelet Aggregation Inhibitor, Nonsteroidal Anti-inflammatory Drug End: 11-05-2024 aspirin, enteric coated (ASPIRIN, ENTERIC COATED) 81 mg EC tablet Take 81 mg by mouth. 11/05/2024 Discontinued Comment on above: Take 81 mg by mouth. bisacodyl 10 mg rectal suppository (4 sources) Stimulant Laxative Start: 10-19-2024 End: 10-23-2024 celecoxib 100 mg oral capsule (10 sources) Nonsteroidal Anti-inflammatory Drug End: 11-05-2024 take 1 capsule by mouth twice daily celecoxib (CELEBREX) 100 mg capsule Take 100 mg by mouth twice daily. 11/05/2024 Discontinued Comment on above: Take 100 mg by mouth twice daily. cholecalciferol 0.025 mg oral tablet (8 sources) Vitamin D End: 11-05-2024 cholecalciferol (VITAMIN D3) 1,000 unit tab tablet Take 1,000 Units by mouth. 11/05/2024 Discontinued (Discontinued by Patient) Comment on above: Take 1,000 Units by mouth. cholecalciferol 9.52 unt/ml / glucose 357 mg/ml oral gel (2 sources) Vitamin D Start: 10-16-2024 End: 10-23-2024 cyclobenzaprine hydrochloride 10 mg oral tablet (19 sources) Muscle Relaxant Start: 10-16-2024 End: 10-23-2024 Start: 09-18-2024 take 1 tablet by ronda twice daily as needed cyclobenzaprine (Flexeril) 5 MG tablet Take 5 mg by mouth 2 times daily as needed. 09/18/2024 Active 1 ml dexamethasone phosphate 4 mg/ml injection (1 source) Corticosteroid Start: 11-13-2024 End: 11-13-2024 10 mg, INTRAVENOUS, ONCE, 1 dose, On Mon11/13/24 at 1100, Administer IV doses up to 10 mg over 5 minutes. Administer doses > 10 mg over 15 to 30 minutes. dicyclomine hydrochloride 10 mg oral capsule (8 sources) Anticholinergic End: 11-05-2024 dicyclomine (BENTYL) 10 mg capsule Take 10 mg by mouth. 11/05/2024 Discontinued (Discontinued by Patient) Comment on above: Take 10 mg by mouth. 0.4 ml enoxaparin sodium 100 mg/ml prefilled syringe (2 sources) Low Molecular Weight Heparin Start: 10-16-2024 End: 10-23-2024 gemcitabine 1,490 mg in NaCl 0.9% 314.187 mL (GEMZAR) (1 source) Start: 11-13-2024 End: 11-13-2024 1,490 mg (1,000 mg/m2 1.49 m2 Treatment Plan BSA from Recorded weight), INTRAVENOUS, Administer over 30 Minutes, ONCE, 1 dose, On Mon11/13/24 at 1200, EXP: Hazardous Chemotherapy Drug: Use appropriate PPE. Antineoplastic Irritant. glimepiride 4 mg oral tablet (8 sources) Sulfonylurea End: 11-05-2024 glimepiride (AMARYL) 4 mg tablet Take 4 mg by mouth. 11/05/2024 Discontinued (Discontinued by Patient) Comment on above: Take 4 mg by mouth. glucagon (rdna) 1 mg injection (2 sources) Antihypoglycemic Agent Start: 10-16-2024 End: 10-23-2024 50 ml glucose 50 mg/ml injection (2 sources) Start: 10-16-2024 End: 10-23-2024 1 ml hydrALAZINE hydrochloride 20 mg/ml injection (2 sources) Arteriolar Vasodilator Start: 10-16-2024 End: 10-23-2024 take 10 mg intravenously every six hours as needed for hypertension 1 ml HYDROmorphone hydrochloride 1 mg/ml cartridge (8 sources) Opioid Agonist Start: 10-17-2024 End: 10-18-2024 take 0.5 mg intravenously every four hours as needed for pain Start: 10-16-2024 End: 10-17-2024 take 0.5 mg intravenously every four melissa rs as needed for pain and pain Start: 10-15-2024 End: 10-16-2024 1 ml ketorolac tromethamine 15 mg/ml cartridge (3 sources) Nonsteroidal Anti-inflammatory Drug, Cyclooxygenase Inhibitor Start: 10-19-2024 End: 10-19-2024 Start: 08-04-2016 End: 11-08-2021 take 1 tablet by mouth every six hours as needed for pain ketorolac (TORADOL) 10 MG tablet Indications: Neuropathy Take 1 tablet by mouth every 6 hours as needed for Pain 20 tablet 0 08/04/2016 11/08/2021 Discontinued (LIST CLEANUP) 50 ml magnesium sulfate 40 mg/ml injection (2 sources) Start: 10-16-2024 End: 10-16-2024 2 ml metoclopramide 5 mg/ml prefilled syringe (2 sources) Dopamine-2 Receptor Antagonist Start: 10-16-2024 End: 10-17-2024 take 10 mg intravenously every eight hours as needed for vomiting and nausea 1 ml naloxone hydrochloride 0.4 mg/ml injection (2 sources) Opioid Antagonist Start: 10-16-2024 End: 10-23-2024 2 ml ondansetron 2 mg/ml injection (20 sources) Serotonin-3 Receptor Antagonist Start: 11-13-2024 End: 11-13-2024 8 mg, INTRAVENOU S, ONCE, 1 dose, On Mon11/13/24 at 1100 Start: 11-01-2024 take 1 tablet by ronda th every eight hours as needed ondansetron (ZOFRAN) 8 mg tablet Take 1 tablet by mouth every 8 hours as needed for nausea/vomiting. 30 tablet 3 11/01/2024 Active Start: 10-15-2024 End: 10-15-2024 take 1 tablet by ronda th every eight hours as needed ondansetron (ZOFRAN) 4 mg tablet Take 4 mg by mouth every 8 hours as needed. Active abuse-deterrent 12 hr oxyCODONE hydrochloride 20 mg extended release oral tablet (20 sources) Opioid Agonist Start: 11-05-2024 End: 11-19-2024 take 1 tablet by mouth twice daily oxyCODONE ER (OXYCONTIN) 20 mg 12 hr tablet Indications: Cancer of pancreas, tail (HCC) , Cancer related pain Take 1 tablet by mouth two times a day for 14 days. 28 tablet 11/05/2024 11/06/2024 Discontinued Start: 11-01-2024 End: 12-01-2024 take 2 tablets by mouth every four hours as needed for pain oxyCODONE IR (ROXICODONE) 5 mg immediate release tablet Indications: Cancer of pancreas, tail (HCC) Take 2 tablets by mouth every 4 hours as needed for pain for up to 30 days. 180 tablet 11/01/2024 12/01/2024 Active Start: 10-23-2024 End: 10-30-2024 take 1 tablet by mouth every four hours as needed for pain oxyCODONE (Roxicodone) 10 MG immediate release tablet Indications: Severe malnutrition (CMS/HCC) (HCC) , Malignant neoplasm of pancreas, unspecified location of malignancy (HCC) Take 1 tablet (10 mg) by mouth every 4 hours as needed for severe pain (7-10) or moderate pain (4-6) for up to 7 days. 42 tablet 10/23/2024 5:20 PM EDT 10/23/2024 10/30/2024 Active Start: 10-16-2024 End: 10-17-2024 take 1 tablet by mouth every six hours as needed for pain Start: 10-04-2024 End: 10-23-2024 take 5 mg by mouth every four hours as needed for pain OZEMPIC 1 mg/dose (4 mg/3 mL) pen (8 sources) Start: 08-11-2022 End: 11-05-2024 inject 1 mg by subcutaneous injection every week OZEMPIC 1 mg/dose (4 mg/3 mL) pen DIAL AND INJECT 1MG subcutaneously every week 08/11/2022 11/05/2024 Discontinued (Discontinued by Patient) Start: 08-11-2022 inject 1 mg by subcu taneous injection every week OZEMPIC 1 mg/dose (4 mg/3 mL) pen DIAL AND INJECT 1MG subcutaneously every week 08/11/2022 Active Start: 08-11-2022 inject 1 mg by subcu taneous injection every week OZEMPIC 1 mg/dose (4 mg/3 mL) pen DIAL AND INJECT 1MG subcutaneously every week 0 08/11/2022 Active Comment on above: DIAL AND INJECT 1MG subcutaneously every week PACLitaxel 100 mg injection (1 source) Microtubule Inhibitor Start: 11-13-2024 End: 11-13-2024 186.25 mg (125 mg/m2 1.49 m2 Treatment Plan BSA from Recorded weight), INTRAVENOUS, at 74.5 mL/hr, Administer over 30 Minutes, ONCE, 1 dose, On Mon11/13/24 at 1130, EXP: Administer total dose over 30 minutes. Hazardous Chemotherapy Drug: Use appropriate PPE. Antineoplastic Irritant with Vesicant Potential. potassium chloride 20 meq powder for oral solution (20 sources) Start: 10-19-2024 End: 10-19-2024 Start: 10-16-2024 End: 10-16-2024 Start: 10-16-2024 End: 10-16-2024 Start: 08-09-2022 take 1 tablet by ronda th twice daily potassium chloride 20 mEq TbER Take 1 tablet by mouth twice daily. 08/09/2022 Active Comment on above: Take [address] [facility] twice daily. simethicone 80 mg chewable tablet (2 sources) Start: 10-19-2024 End: 10-23-2024 1000 ml sodium chloride 9 mg/ml injection (3 sources) Start: 11-13-2024 End: 11-13-2024 500 mL, INTRAVENOUS, at 999 mL/hr, Administer over 0.5 Hours, ONCE, 1 dose, On Mon11/13/24 at 1100 Start: 10-15-2024 End: 10-16-2024 trospium chloride 20 mg oral tablet (2 sources) Cholinergic Muscarinic Antagonist Start: 10-16-2024 End: 10-23-2024 vitamin e 180 mg oral capsule (8 sources) Start: 08-12-2022 End: 11-05-2024 take 1 capsule by mouth once daily vitamin E, dl,tocopheryl acet, (VITAMIN E, DL, ACETATE,) 180 mg (400 unit) capsule Take 180 mg by mouth once daily. 08/12/2022 11/05/2024 Discontinued (Discontinued by Patient) Comment on above: Take 180 mg by mouth once daily. (4 sources) Start: 10-22-2024 End: 10-22-2024 Start: 10-16-2024 End: 10-16-2024 (6 sources) Start: 10-21-2024 End: 10-23-2024 take 5 mg by mouth every four hours as needed for pain [Order 1 Start] Name: oxyCODONE (Roxicodone) immediate release tablet 5 mg Signed Summary: 5 mg, Oral, Every 4 hours PRN, moderate pain (4-6), Starting on Mon10/21/24 at 0913 [Order 1 End] [Order 2 Start] Name: oxyCODONE (Roxicodone) immediate release tablet 10 mg Signed Summary: 10 mg, Oral, Every 4 hours PRN, severe pain (7-10), Starting on Mon10/21/24 at 0914 [Order 2 End] Start: 10-20-2024 End: 10-23-2024 [Order 1 Start] Name: radha iniguez (Nicoderm, Step 2) 14 MG/24HR patch 1 patch Signed Summary: 1 patch, TransDERmal, Administer over 24 Hours, Daily, First dose on 10/20/24 at 1430, For 42 days, Apply new patch to nonhairy, clean, dry skin on the upper body or upper outer arm. Rotate patch sites. Notify Pharmacy if patient or provider prefers patch to be removed at bedtime and replaced in the morning. [Order 1 End] [Order 2 Start] Name: nicotine (Nicoderm, Step 3) 7 MG/24HR patch 1 patch Signed Summary: 1 patch, TransDERmal, Administer over 24 Hours, Daily, First dose on 12/01/24 at 0900, For 14 days, Apply new patch to nonhairy, clean, dry skin on the upper body or upper outer arm. Rotate patch sites. Notify Pharmacy if patient or provider prefers patch to be removed at bedtime and replaced in the morning. [Order 2 End] Start: 10-16-2024 End: 10-23-2024 take 4 mg by mouth every eight hours as needed for nausea and vomiting [Order 1 Start] Name: ondansetron ODT (Zofran-ODT) disintegrating tablet 4 mg Signed Summary: 4 mg, Oral, Every 8 hours PRN, nausea, vomiting, Starting on Mon10/16/24 at 0437, 1st Line. If inadequate response within 60 minutes, proceed to next-line agent or contact provider if no further options ordered. Patient should allow tablet to dissolve on tongue. Do not remove from blister pack until just before administering. [Order 1 End] [Order 2 Start] Name: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 12:52PM CAC 0539 - CT CHEST W IVCON / PROCEDURE REASON: Cancer of pancreas, tail (HCC) * * * * Physician Interpretation * * * * EXAMINATION: CHEST CT WITH CONTRAST CLINICAL HISTORY: Cancer of pancreas. Technique: Spiral CT acquisition of the chest from the thoracic inlet to the upper abdomen following IV contrast. MQ: CTCW_6 Contrast: 125 mL Omnipaque [address] Radiation dose: Integrated Dose-length product (DLP) for this visit = 367 mGy*cm CT Dose Reduction Employed: mAs-kVp adjusted based on patient size-age Comparison: 10/02/2024, 10/16/2024 RESULT: Limitations: None. Lines, tubes, and devices: Right chest port terminates in right atrium. Lung parenchyma and airways: Mild upper lung predominant centrilobular and paraseptal emphysema. Centrilobular groundglass opacities and upper lungs likely reflect respiratory bronchiolitis. Scattered small lung nodules are present, stable. Examples include: Right upper lobe 4 mm nodule on image 42. Right upper lobe 3 mm nodule on image 27. Left upper lobe 2 mm nodule on image 53. No new consolidations have developed. The central airways are patent. Unchanged scarring at lung apices. Pleural space: No pleural effusion. No pleural thickening. Lower neck, lymph nodes, and mediastinum: The visualized portion of thyroid gland is unremarkable. Stable borderline enlarged precarinal lymph node measuring 1 cm, probably reactive. Heart, pericardium, and thoracic vessels: The thoracic aorta and main pulmonary artery are normal in caliber. The cardiac chambers are normal in size. No coronary artery atherosclerotic calcifications are noted, although the study is not optimized for coronary assessment. No pericardial effusion or thickening. Bones and soft tissues: No destructive bone lesion. Chest wall is unremarkable. Upper abdomen: Dictated separately. Localizer images: No additional findings. IMPRESSION: 1. No interval change with stable scattered small lung nodules which remain indeterminate. 2. Smoking-related changes in upper lungs. Display And Banner Designer: ZENIA Transcribe Date/Time: Jan 08 2025 1:04P Dictated by : JEREMIAS PRATT MD This examination was interpreted and the report reviewed and electronically signed by: JEREMIAS PRATT MD on Jan 08 2025 1:10PM EST [id number] Normal [facility] CT PANCREAS/PELVIS W IVCONon 01-08-2025 CT PANCREAS/PELVIS W IVCON * * *Final Report* * * DATE OF EXAM: Jan 08 2025 12:52PM CAC 0553 - CT PANCREAS/PELVIS W IVCON / PROCEDURE REASON: Cancer of pancreas, tail (HCC) * * * * Physician Interpretation * * * * CT ABDOMEN AND PELVIS WITH IV CONTRAST (PANCREAS PROTOCOL) CLINICAL INDICATION: Pancreatic cancer staging or restaging. Additional history: TECHNIQUE: A CT of the abdomen was performed using dedicated pancreatic imaging protocol, including both late arterial phase and portal phase imaging. The portal venous phase was continued through the pelvis. Multiplanar reformats were obtained CONTRAST: IV: 125 ml of Omnipaque 350 Oral: None CT Radiation dose: Integrated Dose-length product (DLP) for this visit = 367 mGy*cm. CT Dose Reduction Employed: mAs-kVp adjusted based on patient size-age COMPARISON: October 15, 2024 and October 03, 2024 RESULT: Pancreas: Primary pancreatic mass: Compared to prior study, there is some improvement in the soft tissue component and greater degrees of necrosis. Location: Tail of the pancreas. Size (largest dimension, any orientation): 5.5 cm (6, 130), previously 5.7 cm Attenuation relative to the normal pancreas: Hypodense Pancreatic duct: Nondilated Biliary tree: Nondilated Arterial evaluation SMA: Patent. Contact: Not applicable Extension to first branch: Not applicable. Celiac axis: Patent. Contact: Not applicable PILO: Patent. Contact: Not applicable Extension to bifurcation of right/left hepatic artery: Absent Arterial variant anatomy: Replaced right hepatic artery arising from SMA. Accessory left hepatic artery arising from left gastric artery. Venous evaluation Main portal vein: Patent Contact: None Extension to first branch: Not applicable. Superior mesenteric vein: Contact: Patent Extension to first branch: Not applicable. Venous thrombus: None. 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 About 90 degree abutment of the left renal artery proximal to the left renal hilum (6, 163). Vasculature (other): - Aorta: Normal caliber. Not involved. - Hepatic veins and IVC: Patient without compression or thrombosis. Other abdomen and pelvis: Liver: Small new hypodensity within segment 8/4A, 0.9 cm (8, 28) . Program hyperemia is present on late arterial phase imaging (5, 28). Additional smaller hypodensities in segment 7/8 and 6 of the liver remain stable and are favored simple cysts. Normal liver morphology. Gallbladder appears normal. Spleen: No mass. Multiple splenic infarcts Adrenals:Right adrenal is normal. Left adrenal as above. Kidneys: Simple renal cysts. No mass or collecting system dilation. GI tract: No dilation or wall thickening. Lymph nodes: Left para-aortic node measures 1.1 cm in short axis, previously 0.8 cm (8, 47). Mesentery/Peritoneum: No ascites or mass. Retroperitoneum: No mass. Pelvis: No mass, ascites or fluid collection. Uterus is surgically absent. Bones/Soft Tissues: No aggressive bone lesions. No acute fractures. Status post posterior approach L5-S1 fusion. Anterior listhesis of L4 over L5 and L5 or S1. Lower thorax: A chest CT performed will be reported separately. Concreting Supervisor: Localizer images: No additional findings. IMPRESSION: No significant change in size of the pancreatic tail mass, now with greater degree of necrosis. Redemonstrated broad contact with the left adrenal gland and short segment left renal artery. New subcentimeter hypodensity in the hepatic segment 8/4 A with surrounding hyperemia. This is indeterminate and could represent a small metastasis or a small hepatic abscess. Consider MRI of the liver for further assessment. Nonspecific interval enlargement of a left para-aortic lymph node. No definite peritoneal tumor. Acuity: Actionable Findings: Liver Routing Code: LV_1 Recommendation: MRI LIVER WO/W IVCON TimeFrame: at the discretion of the clinical team. --END OF FINDING-- Display And Banner Designer: ZENIA Transcribe Date/Time: Jan 08 2025 1:06P Dictated by : CAMMIE SAVAGE MD This examination was interpreted and the report reviewed and electronically signed by: CAMMIE SAVAGE MD on Jan 08 2025 1:44PM EST [id number] ACTIONABLE Invalid Interpretation Code [facility] Cancer Ag19-9 SerPl-aCncon 1 03-10-2024 Cancer Ag 19-9 Qn 67.0 [arb'U]/mL High <36.0 [facility] Comment on above: Order Comment: Speci men Type: BLOOD SPECIMENOrdering Facility: [facility] Address: [address] [place] [address] Result Comment: [facility] [place] er antigen 19-9 test is used as an aid in monitoring response to treatment or recurrence in patients with established pancreatic, hepatobiliary, or gastrointestinal malignancies. Clinical correlation is required. The CA 19-9 Antigen test was performed using the [employer] Unicel DXI paramagnetic particle chemiluminescent immunoassay method. Results obtained with different assay methods or kits cannot be used interchangeably. Performed By: #### 2 4108-3 ####[facility] LABCLIA [id number] [place] [address] [place] Comprehensive metabolic 2000 panelon 01-08-2025 Albumin [Mass/Vol] 3.6 g/dL Low 3.9-4.9 [facility] Comment on above: Order Comment: Speci men Type: BLOOD SPECIMENOrdering Facility: [facility] Address: [address] [place] [address] Performed By: #### 2 4323-8 ####[facility] LABCLIA [id number] [place] [address] [place] ALP [Catalytic activity/Vol] 120 U/L Normal 34-123 [facility] Comment on above: Order Comment: Speci men Type: BLOOD SPECIMENOrdering Facility: [facility] Address: [address] [place] [address] Performed By: #### 2 4323-8 ####[facility] LABCLIA [id number] [place] [address] [place] ALT [Catalytic activity/Vol] 8 U/L Normal 7-38 [facility] Comment on above: Order Comment: Speci men Type: BLOOD SPECIMENOrdering Facility: [facility] Address: [address] [place] [address] Performed By: #### 2 4323-8 ####[facility] LABCLIA [id number] [place] [address] [place] Anion gap [Moles/Vol] 12 mmol/L Normal 8-15 [facility] Comment on above: Order Comment: Speci men Type: BLOOD SPECIMENOrdering Facility: [facility] Address: [address] [place] [address] Performed By: #### 2 4323-8 ####[facility] LABCLIA [id number] [place] [address] [place] AST [Catalytic activity/Vol] 14 U/L Normal 13-35 [facility] Comment on above: Order Comment: Speci men Type: BLOOD SPECIMENOrdering Facility: [facility] Address: [address] [place] [address] Performed By: #### 2 4323-8 ####[facility] LABCLIA [id number] [place] [address] [place] Bilirubin [Mass/Vol] 0.2 mg/dL Normal 0.2-1.3 [facility] Comment on above: Order Comment: Speci men Type: BLOOD SPECIMENOrdering Facility: [facility] Address: [address] [place] [address] Performed By: #### 2 4323-8 ####[facility] LABCLIA [id number] [place] [id number] [place] Calcium [Mass/Vol] 8.9 mg/dL Normal 8.5-10.2 [facility] Comment on above: Order Comment: Speci men Type: BLOOD SPECIMENOrdering Facility: [facility] Address: [address] [place] [address] Performed By: #### 2 4323-8 ####[facility] LABCLIA [id number] [place] [address] [place] Chloride [Moles/Vol] 99 mmol/L Normal 98-107 [facility] Comment on above: Order Comment: Speci men Type: BLOOD SPECIMENOrdering Facility: [facility] Address: [address] [place] [address] Performed By: #### 2 4323-8 ####[facility] LABCLIA [id number] [place] [address] [place] CO2 [Moles/Vol] 25 mmol/L Normal 22-30 [facility] Comment on above: Order Comment: Speci men Type: BLOOD SPECIMENOrdering Facility: [facility] Address: [address] [place] [address] Performed By: #### 2 4323-8 ####[facility] LABCLIA [id number] [place] [address] [place] [facility] Creatinine [Mass/Vol] 0.78 mg/dL Normal 0.58-0.96 [facility] Comment on above: Order Comment: Speci men Type: BLOOD SPECIMENOrdering Facility: [facility] Address: [address] [place] [address] Performed By: #### 2 4323-8 ####[facility] LABCLIA [id number] [address] [place] eGFRcr SerPlBld CKD-EPI 2020 90 mL/min/1.73m??? Normal >=60 [facility] Comment on above: Order Comment: Speci men Type: BLOOD SPECIMENOrdering Facility: [facility] Address: [address] [place] [address] Result Comment: Niki mated Glomerular Filtration Rate (eGFR) is calculated using the 2020 CKD-EPI creatinine equation. This equation utilizes serum creatinine, sex, and age as parameters. The creatinine assay has traceable calibration to isotope dilution-mass spectrometry. Refer to KDIGO guidelines for clinical interpretation. In patients with unstable renal function, e.g. those with acute kidney injury, the eGFR may not accurately reflect actual GFR. Performed By: #### 2 4323-8 ####[facility] LABCLIA [id number] [place] [address] [place] Glucose [Mass/Vol] 297 mg/dL High 74-99 [facility] Comment on above: Order Comment: Speci men Type: BLOOD SPECIMENOrdering Facility: [facility] Address: [address] [place] [address] Result Comment: The [place] Diabetes Association (ADA) provides guidance for cutoff values for fasting glucose and random glucose. The ADA defines fasting as no caloric intake for at least 8 hours. Fasting plasma glucose results between 100 to 125 mg/dL indicate increased risk for diabetes (prediabetes). Fasting plasma glucose results greater than or equal to 126 mg/dL meet the criteria for diagnosis of diabetes. In the absence of unequivocal hyperglycemia, results should be confirmed by repeat testing. In a patient with classic symptoms of hyperglycemia or hyperglycemic crisis, random plasma glucose results greater than or equal to 200 mg/dL meet the criteria for diagnosis of diabetes. Reference: Standards of Medical Care in Diabetes 2016, [place] Diabetes Association. Diabetes Care. 2016.39(Suppl 1). Performed By: #### 2 4323-8 ####[facility] LABCLIA [id number] [place] [address] [place] Potassium [Moles/Vol] 4.3 mmol/L Normal 3.7-5.1 [facility] Comment on above: Order Comment: Speci men Type: BLOOD SPECIMENOrdering Facility: [facility] Address: [address] [place] [address] Performed By: #### 2 4323-8 ####[facility] LABCLIA [id number] [place] [address] [place] Protein [Mass/Vol] 6.4 g/dL Normal 6.3-8.0 [facility] Comment on above: Order Comment: Speci men Type: BLOOD SPECIMENOrdering Facility: [facility] Address: [address] [place] [address] Performed By: #### 2 4323-8 ####[facility] LABCLIA [id number] [place] [id number] [place] Sodium [Moles/Vol] 136 mmol/L Normal 136-144 [facility] Comment on above: Order Comment: Speci men Type: BLOOD SPECIMENOrdering Facility: [facility] Address: [address] [place] [address] Performed By: #### 2 4323-8 ####[facility] LABCLIA [id number] [place] [id number] [place] Urea nitrogen [Mass/Vol] 9 mg/dL Normal 7-21 [facility] Comment on above: Order Comment: Speci men Type: BLOOD SPECIMENOrdering Facility: [facility] Address: [address] [place] [address] Performed By: #### 2 4323-8 ####[facility] LABCLIA [id number] [address] [place] CNOVSPon 01-01-2025 CNOVS Visit (SP) Office (PALMED) ----- PUJA WYMAN ([id number]) 1970 F T Date Time Provider Department 01/01/25 9:00 AM LEODAN SEO During your visit today, we recorded the following information about you: Temperature Pulse Respiration Blood pressure 97.9 degrees 81/minute 18/minute 115/74 Weight 49.9 kg Odalis Cool, ANNITA 01/01/2025 11:37 AM Signed Additional intake questions: Has the patient had fever, nausea, vomiting, diarrhea, constipation, fatigue for > 1 week? Yes, nausea, vomiting, diarrhea ( 0 times in last 24 hours), and Provider Notified Does the patient have a decreased appetite? No Does patient want to see a Field Representatives Director? No (yes to any of above refer patient to schedulers for dietitian appointment) ) Does patient have any new or increased numbness or tingling of extremities? Yes, MYKE MURRAY Is patient interested in fertility information? No Does patient need any prescription refills? No Does patient have an advanced directive in place? 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 Diagnosed 10/03/2024. Started neoadjuvant chemotherapy 11/13/2024. PMH/PSH: Chronic back pain with right-sided sciatica s/p surgery x 2, peripheral neuropathy of right leg and left arm, insulin-dependent DM, bipolar disorder, HTN, emphysema, RLS. SH/FH: Lives in [place] with boyfriend. Has 3 daughters in [place]. Followed by palliative medicine since outpatient consultation 11/05/2024 for symptom management/palliative care. Interval History Last seen by me 11/20/2024 at which time we increased her morphine SR to 45 mg twice daily, continued oxycodone IR as needed, continued APAP as needed, and encouraged use of Zofran and Compazine for nausea. We also discussed arranging follow-up for her bipolar disorder, and she was planning on establishing with [facility]. Yesterday, our office prescribed BMX to try for painful mouth sores. She is filling this today. Per PDMP, she last filled morphine SR 30 mg and 15 mg tablets #60 on 12/04/2024, and #28 on 11/20/2024. Last filled oxycodone IR 5 mg tablets #180 on 11/01/2024. She has followed up with Oncology for continued Gemzar and Abraxane. States her pain is under pretty good control with the morphine SR twice daily. She has been able to reduce her oxycodone use to every 6-8 hours as needed as opposed to every 4 hours [id number]. No significant side effects. No signs of aberrancy. She has noted development of mouth sores and mouth pain recently. She is meticulous about cleaning her dentures regularly. Do not see signs of thrush in her mouth. She has been noting fatigue with chemotherapy. Tries to stay active regularly, going for a walk on a daily basis. 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 She has been experiencing nausea that can become severe in the days after chemotherapy despite use of Zofran and Compazine ATC. It impacts her caloric intake. She plans on calling [facility] to arrange a follow-up appointment later today. Notes mood has been better overall recently. Modified ESAS ([place] Symptom Assessment Scale) Information Provided By: Patient Pain: Mild Nausea: None Loss of Appetite: Moderate Constipation: None Shortness of Breath: Not asked Drowsiness: None Tiredness: Not asked Depression: Not asked Anxiety: Mild How you feel overall: Fair Objective ECOG PERFORMANCE STATUS: 1- Restricted in physically strenuous activity. Carries out light duty. PHYSICAL EXAMINATION: Vital signs: Resp 18 Wt 49.9 kg (110 lb 0.2 oz) LMP (LMP Unknown) BMI 20.12 kg/m? General Appearance: No apparent distress Skin: No rash Eyes: Normal HENT: Atraumatic Neck: Grossly normal Lungs: Unlabored CV: Not examined Abdomen: Nondistended : Not examined Musculoskeletal: No gross deformity Lymphatics: Not examined Neuro: Delirium absent Psych: Affect congruent with mood DATA: Diagnostic tests reviewed for today's visit: Most recent labs and imaging results. Estimated Creatinine Clearance: 67.7 mL/min (based on SCr of 0.74 mg/dL). Opioid Management: Yes Indication for Opioid Prescribing: Cancer related pain ORT-OUD Score: Will review at a future visit Informed consent for chronic opiate therapy obtained and written pain agreement: Will complete at future visit Naloxone offered?: Previously prescribed Course of treatment, patient's response and adherence to the prescribed treatment plan reviewed, including non-pharmacological and non-opioid treatment modalities? Yes Have any complications or (more content not included)... Normal [facility] Rosie 12-31-2024 ANDI Telephone (HEMAMN) ----- PUJA WYMAN ([id number]) 1970 F CHT Date Time Provider Department 12/31/24 ANASTASIA KING During your visit today, we recorded the following information about you: Anastasia King, RN 12/31/2024 2:52 PM Signed Called Puja and provided her with Margoth Spaulding APRN of [facility] contact info: [phone] Puja was very appreciative for the assistance and stated that she would reach out to schedule an appointment. Allergies As of Date: 12/31/2024 Noted Allergy Reaction SOAP 04/22/2020 4 - Hives Comments: Bubble bath Date Reviewed: 12/25/2024 Reviewed by: Jose R Rod RN - Fully Assessed Reason for Visit: Care Coordination [2428] Cmt: Contact information [facility]. Prescriptions as of 01/01/2025 - diphenhydrAMINE 12.5 mg/5 mL lidocaine visc 2% MAALOX 200-200-20 mg/5 mL oral liquid 1:1:1 (CPD) Shake well, then swish and swallow 5 mL by mouth every 4 hours as needed for up to 10 days. - oxyCODONE IR (ROXICODONE) 5 mg immediate release tablet Take 2 tablets by mouth every 4 hours as needed for pain for up to 30 days. - morphine SR (MS CONTIN) 15 mg 12 hr tablet Take 1 tablet by mouth two times a day for 30 days. Total dose of 45 mg twice daily. Patient should start on January 03, 2025. - morphine SR (MS CONTIN) 30 mg 12 hr tablet Take 1 tablet by mouth two times a day for 30 days. Take with the 15 mg tab for total dose of 45mg twice daily Patient should start on January 03, 2025. - FREESTYLE MEKA 3 PLUS SENSOR edy APPLY A NEW SENSOR TOPICALLY EVERY 15 DAYS. - polyethylene glycol 3350 17 gram/dose powder MIX 17 GRAMS IN WATER AND DRINK ONCE DAILY - oxybutynin (DITROPAN) 2.5 mg tablet Take 2.5 mg by mouth once daily. - lurasidone (LATUDA) 20 mg tablet Take 20 mg by mouth daily with food. - insulin lispro (HUMALOG KWIKPEN INSULIN) 100 unit/mL Inject 16 Units subcutaneously three times a day before meals. - ondansetron (ZOFRAN) 8 mg tablet Take 1 tablet by mouth every 8 hours as needed for nausea/vomiting. - naloxone 4 mg/actuation nasal spray (NARCAN) Use 1 spray in one nostril as needed for overdose. May repeat every 2 to 3 min in alternating nostrils until medical assistance is available - Senna 8.6 mg tab Take 8.6 mg by mouth two times a day. 2 tabs - gabapentin (NEURONTIN) 300 mg capsule Take 300 mg by mouth three times a day. 2 caps - busPIRone (BUSPAR) 10 mg tablet Take 10 mg by mouth two times a day. - cyclobenzaprine (FLEXERIL) 5 mg tablet Take 5 mg by mouth two times a day as needed for muscle spasm. - lisinopril (ZESTRIL) 10 mg tablet Take 10 mg by mouth once daily. - ondansetron (ZOFRAN) 4 mg tablet Take 4 mg by mouth every 8 hours as needed. - insulin glargine,hum.rec.anlog (LANTUS SUBCUTANEOUS) Inject 22 Units subcutaneously daily at bedtime. - prochlorperazine (COMPAZINE) 10 mg tablet Take 1 tablet by mouth every 6 hours as needed. - metoprolol tartrate, short acting, (LOPRESSOR) 50 mg tablet Take 50 mg by mouth twice daily. - omeprazole (PRILOSEC) 20 mg capsule take 1 capsule by mouth twice a day , 30 MINUTES BEFORE MORNING MEAL, NEEDED - potassium chloride 20 mEq TbER Take 1 tablet by mouth twice daily. - rOPINIRole (REQUIP) 1 mg tablet Take 1 mg by mouth. Problem List As Of Date 12/31/2024 Noted Resolved Cancer of pancreas, tail (HCC) [C25.2] 11/01/2024 Type 2 diabetes mellitus without complication i*12/09/2024 Encounter Status:Closed by ANASTASIA KING on 01/01/25 Normal [facility] CBC W Auto Differential pane l (Bld)on 12-25-2024 Basophils (Bld) [#/Vol] 0.03 10*3/uL Normal <0.11 [facility] Comment on above: Order Comment: Speci men Type: BLOOD SPECIMENOrdering Facility: [facility] Address: [address] [place] [address] Performed By: #### 5 7021-8 ####[facility] LABCLIA [id number] [place] [address] [place] Basophils/100 WBC (Bld) 0.6 % Normal [facility] Comment on above: Order Comment: Speci men Type: BLOOD SPECIMENOrdering Facility: [facility] Address: [address] [place] [address] Performed By: #### 5 7021-8 ####[facility] LABCLIA [id number] [place] [address] [place] Differential cell count method Nom (Bld) Auto Normal [facility] Comment on above: Order Comment: Speci men Type: BLOOD SPECIMENOrdering Facility: [facility] Address: [address] [place] [address] Performed By: #### 5 7021-8 ####[facility] LABCLIA [id number] [place] [address] [place] Eosinophils (Bld) [#/Vol] 0.14 10*3/uL Normal <0.46 [facility] Comment on above: Order Comment: Speci men Type: BLOOD SPECIMENOrdering Facility: [facility] Address: [address] [place] [address] Performed By: #### 5 7021-8 ####[facility] LABCLIA [id number] [place] [address] [place] Eosinophils/100 WBC (Bld) 2.9 % Normal [facility] Comment on above: Order Comment: Speci men Type: BLOOD SPECIMENOrdering Facility: [facility] Address: [address] [place] [address] Performed By: #### 5 7021-8 ####[facility] LABCLIA [id number] [place] [address] [place] Erythrocyte distribution width (RBC) [Ratio] 15.8 % High 11.5-15.0 [facility] Comment on above: Order Comment: Speci men Type: BLOOD SPECIMENOrdering Facility: [facility] Address: [address] [place] [address] Performed By: #### 5 7021-8 ####[facility] LABCLIA [id number] [place] [address] [place] Hematocrit (Bld) [Volume fraction] 26.3 % Low 36.0-46.0 [facility] Comment on above: Order Comment: Speci men Type: BLOOD SPECIMENOrdering Facility: [facility] Address: [address] [place] [address] Performed By: #### 5 7021-8 ####[facility] LABCLIA [id number] [place] [address] [place] Hemoglobin (Bld) [Mass/Vol] 8.3 g/dL Low 11.5-15.5 [facility] Comment on above: Order Comment: Speci men Type: BLOOD SPECIMENOrdering Facility: [facility] Address: [address] [place] [address] Performed By: #### 5 7021-8 ####[facility] LABCLIA [id number] [address] [place] Immature granulocytes (Bld) [#/Vol] 10*3/uL Normal <0.10 [facility] Comment on above: Order Comment: Speci men Type: BLOOD SPECIMENOrdering Facility: [facility] Address: [address] [place] [address] Performed By: #### 5 7021-8 ####[facility] LABCLIA [id number] [address] [place] Immature granulocytes/100 WBC (Bld) 0.2 % Normal [facility] Comment on above: Order Comment: Speci men Type: BLOOD SPECIMENOrdering Facility: [facility] Address: [address] [place] [address] Performed By: #### 5 7021-8 ####[facility] LABCLIA [id number] [place] [address] [place] Lymphocytes (Bld) [#/Vol] 2.19 10*3/uL Normal 1.00-4.00 [facility] Comment on above: Order Comment: Speci men Type: BLOOD SPECIMENOrdering Facility: [facility] Address: [address] [place] [address] Performed By: #### 5 7021-8 ####[facility] LABCLIA [id number] [place] [address] [place] Lymphocytes/100 WBC (Bld) 45.5 % Normal [facility] Comment on above: Order Comment: Speci men Type: BLOOD SPECIMENOrdering Facility: [facility] Address: [address] [place] [address] Performed By: #### 5 7021-8 ####[facility] LABCLIA [id number] [place] [address] [place] MCH (RBC) [Entitic mass] 28.0 pg Normal 26.0-34.0 [facility] Comment on above: Order Comment: Speci men Type: BLOOD SPECIMENOrdering Facility: [facility] Address: [address] [place] [address] Performed By: #### 5 7021-8 ####[facility] LABCLIA [id number] [place] [address] [place] MCHC (RBC) [Mass/Vol] 31.6 g/dL Normal 30.5-36.0 [facility] Comment on above: Order Comment: Speci men Type: BLOOD SPECIMENOrdering Facility: [facility] Address: [address] [place] [address] Performed By: #### 5 7021-8 ####[facility] LABCLIA [id number] [place] [address] [place] MCV (RBC) [Entitic vol] 88.9 fL Normal 80.0-100.0 [facility] Comment on above: Order Comment: Speci men Type: BLOOD SPECIMENOrdering Facility: [facility] Address: [address] [place] [address] Performed By: #### 5 7021-8 ####[facility] LABCLIA [id number] [place] [address] [place] Monocytes (Bld) [#/Vol] 0.25 10*3/uL Normal <0.87 [facility] Comment on above: Order Comment: Speci men Type: BLOOD SPECIMENOrdering Facility: [facility] Address: [address] [place] [address] Performed By: #### 5 7021-8 ####[facility] LABCLIA [id number] [place] [address] [place] Monocytes/100 WBC (Bld) 5.2 % Normal [facility] Comment on above: Order Comment: Speci men Type: BLOOD SPECIMENOrdering Facility: [facility] Address: [address] [place] [address] Performed By: #### 5 7021-8 ####[facility] LABCLIA [id number] [place] [address] [place] Neutrophils (Bld) [#/Vol] 2.19 10*3/uL Normal 1.45-7.50 [facility] Comment on above: Order Comment: Speci men Type: BLOOD SPECIMENOrdering Facility: [facility] Address: [address] [place] [address] Performed By: #### 5 7021-8 ####[facility] LABCLIA [id number] [place] [address] [place] Neutrophils/100 WBC (Bld) 45.6 % Normal [facility] Comment on above: Order Comment: Speci men Type: BLOOD SPECIMENOrdering Facility: [facility] Address: [address] [place] [address] Performed By: #### 5 7021-8 ####[facility] LABCLIA [id number] [place] [id number] [place] Nucleated RBC (Bld) [#/Vol] 10*3/uL Normal <0.01 [facility] Comment on above: Order Comment: Speci men Type: BLOOD SPECIMENOrdering Facility: [facility] Address: [address] [place] [address] Performed By: #### 5 7021-8 ####[facility] LABCLIA [id number] [place] [id number] [place] Nucleated RBC/100 WBC (Bld) [Ratio] 0.0 /100 WBC Normal [facility] Comment on above: Order Comment: Speci men Type: BLOOD SPECIMENOrdering Facility: [facility] Address: [address] [place] [address] Performed By: #### 5 7021-8 ####[facility] LABCLIA [id number] [place] [address] [place] Platelet mean volume (Bld) [Entitic vol] 9.6 fL Normal 9.0-12.7 [facility] Comment on above: Order Comment: Speci men Type: BLOOD SPECIMENOrdering Facility: [facility] Address: [address] [place] [address] Performed By: #### 5 7021-8 ####[facility] LABCLIA [id number] [place] [address] [place] Platelets (Bld) [#/Vol] 152 10*3/uL Normal 150-400 [facility] Comment on above: Order Comment: Speci men Type: BLOOD SPECIMENOrdering Facility: [facility] Address: [address] [place] [address] Performed By: #### 5 7021-8 ####[facility] LABCLIA [id number] [place] [id number] [place] RBC (Bld) [#/Vol] 2.96 10*6/uL Low 3.90-5.20 [facility] Comment on above: Order Comment: Speci men Type: BLOOD SPECIMENOrdering Facility: [facility] Address: [address] [place] [address] Performed By: #### 5 7021-8 ####[facility] LABCLIA [id number] [place] [id number] [place] WBC (Bld) [#/Vol] 4.81 10*3/uL Normal 3.70-11.00 [facility] Comment on above: Order Comment: Speci men Type: BLOOD SPECIMENOrdering Facility: [facility] Address: [address] [place] [address] Performed By: #### 5 7021-8 ####[facility] LABCLIA [id number] [place] [id number] [place] CNPNon 12-25-2024 CNPN Telephone (HEMAMN) ----- PUJA WYMAN ([id number]) 1970 F [facility] Date Time Provider Department 12/25/24 ANASTASIA KING HEMAMN During your visit today, we recorded the following information about you: Anastasia King RN 12/26/2024 12:49 PM Addendum Spoke with Puja while in infusion. She wondered whether Dr. Seo would me managing her anxiety. She reports that she takes buspar and Latuda, but has run out. Per Dr. Seo's office visit note regarding Puja's mental health management, Yessenia is supposed to establish care with [facility] (Margoth aGrrison, [place].) Per Puja, she has not done this. Unclear as to why. She states that she does not know anyone locally and would like to establish here at [facility]. Of note, she has an appointment with Dr. Mcmullen on 01/15. Of note, Puja was seen by Griselda Nuñez of [facility] in [place] on 11/01. [phone]. Office will direct Puja to call them for medication refills and for follow up care. Anastasia King, [place] 12/26/2024 12:49 PM Signed December 26, 2024 Called patient on both home and mobile lines. LVM to call the office to discuss further. Anastasia King RN 12/30/2024 5:08 PM Signed December 30, 2024 Was able to speak with Puja. As for mental health support, she states that she refuses to go back to [facility] in [place]. Apparently she had a bad experience with providers there. Puja states that she saw someone while hospitalized at [facility], but she doesn't remember that person's name and never received her card. 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 - morphine SR (MS CONTIN) 15 mg 12 hr tablet Take 1 tablet by mouth two times a day for 30 days. Total dose of 45 mg twice daily. Patient should start on January 03, 2025. - morphine SR (MS CONTIN) 30 mg 12 hr tablet Take 1 tablet by mouth two times a day for 30 days. Take with the 15 mg tab for total dose of 45mg twice daily Patient should start on January 03, 2025. - FREESTYLE MEKA 3 PLUS SENSOR edy APPLY A NEW SENSOR TOPICALLY EVERY 15 DAYS. - polyethylene glycol 3350 17 gram/dose powder MIX 17 GRAMS IN WATER AND DRINK ONCE DAILY - oxybutynin (DITROPAN) 2.5 mg tablet Take 2.5 mg by mouth once daily. - lurasidone (LATUDA) 20 mg tablet Take 20 mg by mouth daily with food. - insulin lispro (HUMALOG KWIKPEN INSULIN) 100 unit/mL Inject 16 Units subcutaneously three times a day before meals. - ondansetron (ZOFRAN) 8 mg tablet Take 1 tablet by mouth every 8 hours as needed for nausea/vomiting. - naloxone 4 mg/actuation nasal spray (NARCAN) Use 1 spray in one nostril as needed for overdose. May repeat every 2 to 3 min in alternating nostrils until medical assistance is available - Senna 8.6 mg tab Take 8.6 mg by mouth two times a day. 2 tabs - gabapentin (NEURONTIN) 300 mg capsule Take 300 mg by mouth three times a day. 2 caps - busPIRone (BUSPAR) 10 mg tablet Take 10 mg by mouth two times a day. - cyclobenzaprine (FLEXERIL) 5 mg tablet Take 5 mg by mouth two times a day as needed for muscle spasm. - lisinopril (ZESTRIL) 10 mg tablet Take 10 mg by mouth once daily. - ondansetron (ZOFRAN) 4 mg tablet Take 4 mg by mouth every 8 hours as needed. - insulin glargine,hum.rec.anlog (LANTUS SUBCUTANEOUS) Inject 22 Units subcutaneously daily at bedtime. - prochlorperazine (COMPAZINE) 10 mg tablet Take 1 tablet by mouth every 6 hours as needed. - metoprolol tartrate, short acting, (LOPRESSOR) 50 mg tablet Take 50 mg by mouth twice daily. - omeprazole (PRILOSEC) 20 mg capsule take 1 capsule by mouth twice a day , 30 MINUTES BEFORE MORNING MEAL, NEEDED - potassium chloride 20 mEq TbER Take 1 tablet by mouth twice daily. - rOPINIRole (REQUIP) 1 mg tablet Take 1 mg by mouth. 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.2] 11/01/2024 Type 2 diabetes mellitus without complication i*12/09/2024 Encounter Status:Closed by ANASTASIA KING on 12/31/24 Normal [facility] Comprehensive metabolic 2000 panelon 12-25-2024 Albumin [Mass/Vol] 3.7 g/dL Low 3.9-4.9 [facility] Comment on above: Order Comment: Speci men Type: BLOOD SPECIMENOrdering Facility: [facility] Address: [address] [place] [address] [place] [address] Performed By: #### 2 4323-8 ####[facility] LABCLIA [id number] [place] [address] [place] ALP [Catalytic activity/Vol] 109 U/L Normal 34-123 [facility] Comment on above: Order Comment: Speci men Type: BLOOD SPECIMENOrdering Facility: [facility] Address: [address] [place] [address] Performed By: #### 2 4323-8 ####[facility] LABCLIA [id number] [place] [id number] [place] ALT [Catalytic activity/Vol] 8 U/L Normal 7-38 [facility] Comment on above: Order Comment: Speci men Type: BLOOD SPECIMENOrdering Facility: [facility] Address: [address] [place] [address] Performed By: #### 2 4323-8 ####[facility] LABCLIA [id number] [place] [address] [place] Anion gap [Moles/Vol] 10 mmol/L Normal 8-15 [facility] Comment on above: Order Comment: Speci men Type: BLOOD SPECIMENOrdering Facility: [facility] Address: [address] [place] [address] Performed By: #### 2 4323-8 ####[facility] LABCLIA [id number] [place] [id number] [place] AST [Catalytic activity/Vol] 13 U/L Normal 13-35 [facility] Comment on above: Order Comment: Speci men Type: BLOOD SPECIMENOrdering Facility: [facility] Address: [address] [place], [place] [id number] Performed By: #### 2 4323-8 ####[facility] LABCLIA [id number] [place] [id number] [place] Bilirubin [Mass/Vol] mg/dL Low 0.2-1.3 [facility] Comment on above: Order Comment: Speci men Type: BLOOD SPECIMENOrdering Facility: [facility] Address: [address] [place] [address] Performed By: #### 2 4323-8 ####[facility] LABCLIA [id number] [place] [address] [place] Calcium [Mass/Vol] 8.7 mg/dL Normal 8.5-10.2 [facility] Comment on above: Order Comment: Speci men Type: BLOOD SPECIMENOrdering Facility: [facility] Address: [address] [place] [address] Performed By: #### 2 4323-8 ####[facility] LABCLIA [id number] [place] [address] [place] Chloride [Moles/Vol] 102 mmol/L Normal 98-107 [facility] Comment on above: Order Comment: Speci men Type: BLOOD SPECIMENOrdering Facility: [facility] Address: [address] [place] [address] Performed By: #### 2 4323-8 ####[facility] LABCLIA [id number] [place] [address] [place] CO2 [Moles/Vol] 23 mmol/L Normal 22-30 [facility] Comment on above: Order Comment: Speci men Type: BLOOD SPECIMENOrdering Facility: [facility] Address: [address] [place] [address] Performed By: #### 2 4323-8 ####[facility] LABCLIA [id number] [place] [id number] [place] Creatinine [Mass/Vol] 0.74 mg/dL Normal 0.58-0.96 [facility] Comment on above: Order Comment: Speci men Type: BLOOD SPECIMENOrdering Facility: [facility] Address: [address] [place] [address] Performed By: #### 2 4323-8 ####[facility] LABCLIA [id number] [place] [id number] [place] eGFRcr SerPlBld CKD-EPI 202 96 mL/min/1.73m??? Normal >=60 [facility] Comment on above: Order Comment: Rivka ayers Type: BLOOD SPECIMENOrdering Facility: [facility] Address: [address] [place] [address] Result Comment: Niki mated Glomerular Filtration Rate (eGFR) is calculated using the 2020 CKD-EPI creatinine equation. This equation utilizes serum creatinine, sex, and age as parameters. The creatinine assay has traceable calibration to isotope dilution-mass spectrometry. Refer to KDIGO guidelines for clinical interpretation. In patients with unstable renal function, e.g. those with acute kidney injury, the eGFR may not accurately reflect actual GFR. Performed By: #### 2 4323-8 ####[facility] LABCLIA [id number] [place] [address] [place] Glucose [Mass/Vol] 223 mg/dL High 74-99 [facility] Comment on above: Order Comment: Rivka ayers Type: BLOOD SPECIMENOrdering Facility: [facility] Address: [address] [place] [address] Result Comment: The [place] Diabetes Association (ADA) provides guidance for cutoff values for fasting glucose and random glucose. The ADA defines fasting as no caloric intake for at least 8 hours. Fasting plasma glucose results between 100 to 125 mg/dL indicate increased risk for diabetes (prediabetes). Fasting plasma glucose results greater than or equal to 126 mg/dL meet the criteria for diagnosis of diabetes. In the absence of unequivocal hyperglycemia, results should be confirmed by repeat testing. In a patient with classic symptoms of hyperglycemia or hyperglycemic crisis, random plasma glucose results greater than or equal to 200 mg/dL meet the criteria for diagnosis of diabetes. Reference: Standards of Medical Care in Diabetes 2016, [place] [employer] Association. Diabetes Care. 2016.39(Suppl 1). Performed By: #### 2 4323-8 ####[facility] LABCLIA [id number] [place] [address] [place] Potassium [Moles/Vol] 4.2 mmol/L Normal 3.7-5.1 [facility] Comment on above: Order Comment: Rivka ayers Type: BLOOD SPECIMENOrdering Facility: [facility] Address: [address] [place] [id number] Performed By: #### 2 4323-8 ####[facility] LABCLIA [id number] [place] [address] [place] Protein [Mass/Vol] 6.3 g/dL Normal 6.3-8.0 [facility] Comment on above: Order Comment: Speci men Type: BLOOD SPECIMENOrdering Facility: [facility] Address: [address] [place] [address] Performed By: #### 2 4323-8 ####[facility] LABCLIA [id number] [place] [address] [place] Sodium [Moles/Vol] 135 mmol/L Low 136-144 [facility] Comment on above: Order Comment: Speci men Type: BLOOD SPECIMENOrdering Facility: [facility] Address: [address] [place] [address] Performed By: #### 2 4323-8 ####[facility] LABCLIA [id number] [place] [address] [place] Urea nitrogen [Mass/Vol] 18 mg/dL Normal 7-21 [facility] Comment on above: Order Comment: Speci men Type: BLOOD SPECIMENOrdering Facility: [facility] Address: [address] [place] [address] Performed By: #### 2 4323-8 ####[facility] LABCLIA [id number] [place] [address] [place] Rosie 12-20-2024 CNPN Telephone (HEMAMN) ----- PUJA WYMAN ([id number]) 1970 F T Date Time Provider Department 12/20/24 ANASTASIA KING During your visit today, we recorded the following information about you: Anastasia King RN 12/20/2024 2:36 PM Signed Care Coordination Triage Note [facility] [place] Situation: Patient reports: symptomatic low blood glucose (52) Background: pancreas cancer. Assessment: Puja called office from her car; she had pulled over. She is by herself. She states that her Blood glucose monitor has been alarming low. She is currently drinking grape juice with no apparent effect. She states that she is shaky and feels like she can't think. She has a friend about 5 minutes away and [facility] is about 8 min away. Recommendations: Patient directed to: Call 911 due to the issue being emergent. Office advised her to pull the car over to a safe place and call 911. Discussed ED evaluation of blood glucose and her sensor, if needed. Discussed that it was not safe for her to drive to her friend or to the hospital given what was going on. She verbalized agreement and stated that she would do as advised. Anastasia King RN December 20, 2024 2:21 PM Allergies As of Date: 12/20/2024 Noted Allergy Reaction SOAP 04/22/2020 4 - Hives Comments: Bubble bath Date Reviewed: 12/18/2024 Reviewed by: Shreya Freedman RN - Fully Assessed Reason for Visit: Care Coordination [3491] Cmt: ED evaluation for low blood glucose Prescriptions as of 01/02/2025 - OLANZapine (ZYPREXA) 5 mg tablet Take 1 tablet by mouth daily at bedtime. Take for 5 days, starting the night before each chemotherapy infusion to help with nausea - morphine SR (MS CONTIN) 15 mg 12 hr tablet Take 1 tablet by mouth two times a day for 30 days. Total dose of 45 mg twice daily. Patient should start on January 03, 2025. - morphine SR (MS CONTIN) 30 mg 12 hr tablet Take 1 tablet by mouth two times a day for 30 days. Take with the 15 mg tab for total dose of 45mg twice daily Patient should start on January 03, 2025. - prochlorperazine (COMPAZINE) 10 mg tablet Take 1 tablet by mouth every 6 hours as needed. - ondansetron (ZOFRAN) 8 mg tablet Take 1 tablet by mouth every 8 hours as needed for nausea/vomiting. - diphenhydrAMINE 12.5 mg/5 mL lidocaine visc 2% MAALOX 200-200-20 mg/5 mL oral liquid 1:1:1 (CPD) Shake well, then swish and swallow 5 mL by mouth every 4 hours as needed for up to 10 days. - oxyCODONE IR (ROXICODONE) 5 mg immediate release tablet Take 2 tablets by mouth every 4 hours as needed for pain for up to 30 days. - FREESTYLE MEKA 3 PLUS SENSOR edy APPLY A NEW SENSOR TOPICALLY EVERY 15 DAYS. - polyethylene glycol 3350 17 gram/dose powder MIX 17 GRAMS IN WATER AND DRINK ONCE DAILY - oxybutynin (DITROPAN) 2.5 mg tablet Take 2.5 mg by mouth once daily. - lurasidone (LATUDA) 20 mg tablet Take 20 mg by mouth daily with food. - insulin lispro (HUMALOG KWIKPEN INSULIN) 100 unit/mL Inject 16 Units subcutaneously three times a day before meals. - naloxone 4 mg/actuation nasal spray (NARCAN) Use 1 spray in one nostril as needed for overdose. May repeat every 2 to 3 min in alternating nostrils until medical assistance is available - Senna 8.6 mg tab Take 8.6 mg by mouth two times a day. 2 tabs - gabapentin (NEURONTIN) 300 mg capsule Take 300 mg by mouth three times a day. 2 caps - busPIRone (BUSPAR) 10 mg tablet Take 10 mg by mouth two times a day. - cyclobenzaprine (FLEXERIL) 5 mg tablet Take 5 mg by mouth two times a day as needed for muscle spasm. - lisinopril (ZESTRIL) 10 mg tablet Take 10 mg by mouth once daily. - ondansetron (ZOFRAN) 4 mg tablet Take 4 mg by mouth every 8 hours as needed. - insulin glargine,hum.rec.anlog (LANTUS SUBCUTANEOUS) Inject 22 Units subcutaneously daily at bedtime. - metoprolol tartrate, short acting, (LOPRESSOR) 50 mg tablet Take 50 mg by mouth twice daily. - omeprazole (PRILOSEC) 20 mg capsule take 1 capsule by mouth twice a day , 30 MINUTES BEFORE MORNING MEAL, NEEDED - potassium chloride 20 mEq TbER Take 1 tablet by mouth twice daily. - rOPINIRole (REQUIP) 1 mg tablet Take 1 mg by mouth. Problem List As Of Date 12/20/2024 Noted Resolved Cancer of pancreas, tail (HCC) [C25.2] 11/01/2024 Type 2 diabetes mellitus without complication i*12/09/2024 Encounter Status:Closed by ANASTASIA KING on 01/02/25 Normal [facility] CBC W Auto Differential pane l (Bld)on 12-18-2024 Basophils (Bld) [#/Vol] 0.10 10*3/uL Normal <0.11 [facility] Comment on above: Order Comment: Speci men Type: BLOOD SPECIMENOrdering Facility: [facility] Address: [address] [place] [address] Performed By: #### 5 7021-8 ####[facility] LABCLIA [id number] [place] [address] [place] Basophils/100 WBC (Bld) 1.3 % Normal [facility] Comment on above: Order Comment: Speci men Type: BLOOD SPECIMENOrdering Facility: [facility] Address: [address] [place] [address] Performed By: #### 5 7021-8 ####[facility] LABCLIA [id number] [place] [address] [place] Differential cell count method Nom (Bld) Auto Normal [facility] Comment on above: Order Comment: Speci men Type: BLOOD SPECIMENOrdering Facility: [facility] Address: [address] [place] [address] Performed By: #### 5 7021-8 ####[facility] LABCLIA [id number] [place] [address] [place] Eosinophils (Bld) [#/Vol] 0.24 10*3/uL Normal <0.46 [facility] Comment on above: Order Comment: Speci men Type: BLOOD SPECIMENOrdering Facility: [facility] Address: [address] [place] [address] Performed By: #### 5 7021-8 ####[facility] LABCLIA [id number] [place] [address] [place] Eosinophils/100 WBC (Bld) 3.1 % Normal [facility] Comment on above: Order Comment: Speci men Type: BLOOD SPECIMENOrdering Facility: [facility] Address: [address] [place] [address] Performed By: #### 5 7021-8 ####[facility] LABCLIA [id number] [place] [address] [place] Erythrocyte distribution width (RBC) [Ratio] 15.5 % High 11.5-15.0 [facility] Comment on above: Order Comment: Speci men Type: BLOOD SPECIMENOrdering Facility: [facility] Address: [address] [place] [address] Performed By: #### 5 7021-8 ####[facility] LABCLIA [id number] [place] [address] [place] Hematocrit (Bld) [Volume fraction] 30.2 % Low 36.0-46.0 [facility] Comment on above: Order Comment: Speci men Type: BLOOD SPECIMENOrdering Facility: [facility] Address: [address] [place] [address] Performed By: #### 5 7021-8 ####[facility] LABCLIA [id number] [place] [address] [place] Hemoglobin (Bld) [Mass/Vol] 9.6 g/dL Low 11.5-15.5 [facility] Comment on above: Order Comment: Speci men Type: BLOOD SPECIMENOrdering Facility: [facility] Address: [address] [place] [address] Performed By: #### 5 7021-8 ####[facility] LABCLIA [id number] [place] [address] [place] Immature granulocytes (Bld) [#/Vol] 0.06 10*3/uL Normal <0.10 [facility] Comment on above: Order Comment: Speci men Type: BLOOD SPECIMENOrdering Facility: [facility] Address: [address] [place] [address] Performed By: #### 5 7021-8 ####[facility] LABCLIA [id number] [address] [place] Immature granulocytes/100 WBC (Bld) 0.8 % Normal [facility] Comment on above: Order Comment: Speci men Type: BLOOD SPECIMENOrdering Facility: [facility] Address: [address] [place] [address] Performed By: #### 5 7021-8 ####[facility] LABCLIA [id number] [place] [address] [place] Lymphocytes (Bld) [#/Vol] 3.35 10*3/uL Normal 1.00-4.00 [facility] Comment on above: Order Comment: Speci men Type: BLOOD SPECIMENOrdering Facility: [facility] Address: [address] [place] [address] Performed By: #### 5 7021-8 ####[facility] LABCLIA [id number] [address] [place] Lymphocytes/100 WBC (Bld) 43.9 % Normal [facility] Comment on above: Order Comment: Speci men Type: BLOOD SPECIMENOrdering Facility: [facility] Address: [address] [place] [address] Performed By: #### 5 7021-8 ####[facility] LABCLIA [id number] [place] [address] [place] MCH (RBC) [Entitic mass] 27.9 pg Normal 26.0-34.0 [facility] Comment on above: Order Comment: Speci men Type: BLOOD SPECIMENOrdering Facility: [facility] Address: [address] [place] [address] Performed By: #### 5 7021-8 ####[facility] LABCLIA [id number] [place] [address] [place] MCHC (RBC) [Mass/Vol] 31.8 g/dL Normal 30.5-36.0 [facility] Comment on above: Order Comment: Speci men Type: BLOOD SPECIMENOrdering Facility: [facility] Address: [facility] [place] [address] Performed By: #### 5 7021-8 ####[facility] LABCLIA [id number] [place] [address] [place] MCV (RBC) [Entitic vol] 87.8 fL Normal 80.0-100.0 [facility] Comment on above: Order Comment: Speci men Type: BLOOD SPECIMENOrdering Facility: [facility] Address: [address] [place] [address] Performed By: #### 5 7021-8 ####[facility] LABCLIA [id number] [place] [address] [place] Monocytes (Bld) [#/Vol] 0.51 10*3/uL Normal <0.87 [facility] Comment on above: Order Comment: Speci men Type: BLOOD SPECIMENOrdering Facility: [facility] Address: [address] [place] [address] Performed By: #### 5 7021-8 ####[facility] LABCLIA [id number] [place] [address] [place] Monocytes/100 WBC (Bld) 6.7 % Normal [facility] Comment on above: Order Comment: Speci men Type: BLOOD SPECIMENOrdering Facility: [facility] Address: [address] [place] [address] Performed By: #### 5 7021-8 ####[facility] LABCLIA [id number] [place] [address] [place] Neutrophils (Bld) [#/Vol] 3.37 10*3/uL Normal 1.45-7.50 [facility] Comment on above: Order Comment: Speci men Type: BLOOD SPECIMENOrdering Facility: [facility] Address: [address]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 currently undergoing chemotherapy with Gemzar and Abraxane, administered 3 weeks on and 1 week off, with each cycle lasting 4 weeks. She is starting cycle 2 today. She reports feeling better than when she first started treatment, with pain medication providing significant relief. She notes that when she is not in pain, she is able to eat and engage in activities. She experienced rapid and complete hair loss, which was emotion (more content not included)... Normal [facility] Cancer Ag19-9 SerPl-aCncon 1 Cancer Ag 19-9 Qn 198.0 [arb'U]/mL High <36.0 [facility] Comment on above: Order Comment: Speci men Type: BLOOD SPECIMENOrdering Facility: [facility] Address: [address] [place] [address] Result Comment: [facility] [place] er antigen 19-9 test is used as an aid in monitoring response to treatment or recurrence in patients with established pancreatic, hepatobiliary, or gastrointestinal malignancies. Clinical correlation is required. The CA 19-9 Antigen test was performed using the [employer] DXI paramagnetic particle chemiluminescent immunoassay method. Results obtained with different assay methods or kits cannot be used interchangeably. Performed By: #### 2 4108-3 ####[facility] LABCLIA [id number] [place] [address] [place] Comprehensive metabolic 2000 panelon 12-11-2024 Albumin [Mass/Vol] 3.7 g/dL Low 3.9-4.9 [facility] Comment on above: Order Comment: Speci men Type: BLOOD SPECIMENOrdering Facility: [facility] Address: [address] [place] [address] Performed By: #### 2 4323-8, 93934-2 ####[facility] LABCLIA [id number] [place] [address] [place] ALP [Catalytic activity/Vol] 136 U/L High 34-123 [facility] Comment on above: Order Comment: Speci men Type: BLOOD SPECIMENOrdering Facility: [facility] Address: [address] [place] [address] Performed By: #### 2 4323-8, 88567-7 ####[facility] LABCLIA [id number] [place] [address] [place] ALT [Catalytic activity/Vol] 10 U/L Normal 7-38 [facility] Comment on above: Order Comment: Speci men Type: BLOOD SPECIMENOrdering Facility: [facility] Address: [address] [place] [address] Performed By: #### 2 4323-8, 78306-9 ####[facility] LABCLIA [id number] [place] [address] [place] Anion gap [Moles/Vol] 9 mmol/L Normal 8-15 [facility] Comment on above: Order Comment: Speci men Type: BLOOD SPECIMENOrdering Facility: [facility] Address: [address] [place] [address] Performed By: #### 2 4323-8, 52158-9 ####[facility] LABCLIA [id number] [place] [id number] [place] AST [Catalytic activity/Vol] 14 U/L Normal 13-35 [facility] Comment on above: Order Comment: Speci men Type: BLOOD SPECIMENOrdering Facility: [facility] Address: [address] [place] [id number] Performed By: #### 2 4323-8, 62181-6 ####[facility] LABCLIA [id number] [place] [id number] [place] Bilirubin [Mass/Vol] 0.2 mg/dL Normal 0.2-1.3 [facility] Comment on above: Order Comment: Speci men Type: BLOOD SPECIMENOrdering Facility: [facility] Address: [address] [place] [address] Performed By: #### 2 4323-8, 41460-1 ####[facility] LABCLIA [id number] [place] [address] [place] Calcium [Mass/Vol] 9.1 mg/dL Normal 8.5-10.2 [facility] Comment on above: Order Comment: Speci men Type: BLOOD SPECIMENOrdering Facility: [facility] Address: [address] [place] [address] Performed By: #### 2 4323-8, 30406-8 ####[facility] LABCLIA [id number] [place] [address] [place] Chloride [Moles/Vol] 100 mmol/L Normal 98-107 [facility] Comment on above: Order Comment: Speci men Type: BLOOD SPECIMENOrdering Facility: [facility] Address: [address] [place] [address] Performed By: #### 2 4323-8, 88984-6 ####[facility] LABCLIA [id number] [place] [id number] [place] CO2 [Moles/Vol] 25 mmol/L Normal 22-30 [facility] Comment on above: Order Comment: Speci men Type: BLOOD SPECIMENOrdering Facility: [facility] Address: [address] [place] [address] Performed By: #### 2 4323-8, 47103-6 ####[facility] LABCLIA [id number] [place] [address] [place] [facility] Creatinine [Mass/Vol] 0.65 mg/dL Normal 0.58-0.96 [facility] Comment on above: Order Comment: Rivka ayers Type: BLOOD SPECIMENOrdering Facility: [facility] Address: [address] [place] [address] Performed By: #### 2 4323-8, 64853-0 ####[facility] LABCLIA [id number] [address] [place] eGFRcr SerPlBld CKD-EPI 2020 104 mL/min/1.73m??? Normal >=60 [facility] Comment on above: Order Comment: Rivka ayers Type: BLOOD SPECIMENOrdering Facility: [facility] Address: [address] [place] [address] Result Comment: Niki mated Glomerular Filtration Rate (eGFR) is calculated using the 2020 CKD-EPI creatinine equation. This equation utilizes serum creatinine, sex, and age as parameters. The creatinine assay has traceable calibration to isotope dilution-mass spectrometry. Refer to KDIGO guidelines for clinical interpretation. In patients with unstable renal function, e.g. those with acute kidney injury, the eGFR may not accurately reflect actual GFR. Performed By: #### 2 4323-8, 92951-3 ####[facility] LABCLIA [id number] [place] [address] [place] Glucose [Mass/Vol] 239 mg/dL High 74-99 [facility] Comment on above: Order Comment: Rivka ayers Type: BLOOD SPECIMENOrdering Facility: [facility] Address: [address] [place] [address] Result Comment: The [place] Diabetes Association (ADA) provides guidance for cutoff values for fasting glucose and random glucose. The ADA defines fasting as no caloric intake for at least 8 hours. Fasting plasma glucose results between 100 to 125 mg/dL indicate increased risk for diabetes (prediabetes). Fasting plasma glucose results greater than or equal to 126 mg/dL meet the criteria for diagnosis of diabetes. In the absence of unequivocal hyperglycemia, results should be confirmed by repeat testing. In a patient with classic symptoms of hyperglycemia or hyperglycemic crisis, random plasma glucose results greater than or equal to 200 mg/dL meet the criteria for diagnosis of diabetes. Reference: Standards of Medical Care in Diabetes 2016, [place] Diabetes Association. Diabetes Care. 2016.39(Suppl 1). Performed By: #### 2 4323-8, 36092-0 ####[facility] LABCLIA [id number] [place] [address] [place] Potassium [Moles/Vol] 4.8 mmol/L Normal 3.7-5.1 [facility] Comment on above: Order Comment: Speci men Type: BLOOD SPECIMENOrdering Facility: [facility] Address: [address] [place] [address] Performed By: #### 2 4323-8, 15359-2 ####[facility] LABCLIA [id number] [place] [id number] [place] Protein [Mass/Vol] 6.6 g/dL Normal 6.3-8.0 [facility] Comment on above: Order Comment: Speci men Type: BLOOD SPECIMENOrdering Facility: [facility] Address: [address] [place] [address] Performed By: #### 2 4323-8, 09970-5 ####[facility] LABCLIA [id number] [place] [id number] [place] Sodium [Moles/Vol] 134 mmol/L Low 136-144 [facility] Comment on above: Order Comment: Speci men Type: BLOOD SPECIMENOrdering Facility: [facility] Address: [address] [place] [address] Performed By: #### 2 4323-8, 15948-0 ####[facility] LABCLIA [id number] [place] [id number] [place] Urea nitrogen [Mass/Vol] 12 mg/dL Normal 7-21 [facility] Comment on above: Order Comment: Speci men Type: BLOOD SPECIMENOrdering Facility: [facility] Address: [address] [place] [address] Performed By: #### 2 4323-8, 57421-0 ####[facility] LABCLIA [id number] [address] OF [facility] HbA1c (Bld)on 12-11-2024 Average glucose Estimated from glycated hemoglobin (Bld) [Mass/Vol] 266 mg/dL Normal [facility] Comment on above: Order Comment: Rivka ayers Type: BLOOD SPECIMENOrdering Facility: [facility] Address: [address] [place] [address] Result Comment: eAG: (Estimated average glucose) is a calculated value from HgbA1c and is medical center representative of the average blood glucose level in the last 2-3 month period. Performed By: #### 5 5454-3 ####[facility] LABIA [id number] [address] HbA1c (Bld) [Mass fraction] 10.9 % High 4.3-5.6 [facility] Comment on above: Order Comment: Rivka ayers Type: BLOOD SPECIMENOrdering Facility: [facility] Address: [address] [place] [address] Result Comment: [place] Diabetes Association guidelines indicate that patients with HgbA1c in the range 5.7-6.4% are at increased risk for development of diabetes, and intervention by lifestyle modification may be beneficial. HgbA1c greater or equal to 6.5% is considered diagnostic of diabetes. Performed By: #### 5 5454-3 ####[facility] LABCLIA [id number] [address] OF [facility] Lipid 1996 panelon 5 Cholesterol [Mass/Vol] 124 mg/dL Normal <200 [facility] Comment on above: Order Comment: Rivka ayers Type: BLOOD SPECIMENOrdering Facility: [facility] Address: [address] [place] [address] Result Comment: <200 mg/dL, Desirable 200-239 mg/dL, Borderline high >239 mg/dL, High Performed By: #### 2 4323-8, 20019-5 ####[facility] LABCLIA [id number] [place] [id number] [facility] Cholesterol in HDL [Mass/Vol] 48 mg/dL Normal >39 [facility] Comment on above: Order Comment: Rivka andria Type: BLOOD SPECIMENOrdering Facility: [facility] Address: [address] [place] [address] Result Comment: 40-5 9 mg/dL, Acceptable >59 mg/dL, High: Negative risk factor for coronary heart disease <40 mg/dL, Low: Positive risk factor for coronary heart disease Performed By: #### 2 4323-8, 62957-8 ####[facility] LABCLIA [id number] [address] Cholesterol in LDL [Mass/Vol] 57 mg/dL Normal <100 [facility] Comment on above: Order Comment: Rivka andria Type: BLOOD SPECIMENOrdering Facility: [facility] Address: [address] [place] [address] Result Comment: <100 mg/dL, Optimal 100-129 mg/dL, Near optimal/above optimal 130-159 mg/dL, Borderline high 160-189 mg/dL, High >189 mg/dL, Very high Secondary prevention optimal LDL Cholesterol levels are recommended to be <70 mg/dL LDL cholesterol is calculated using the Haile-NIH equation. Performed By: #### 2 4323-8, 09580-0 ####[facility] LABCLIA [id number] [place] [id number] [facility] Cholesterol in LDL/Cholesterol in HDL [Mass ratio] 1.19 {ratio} Normal <2.54 [facility] Comment on above: Order Comment: Waltmahin ayers Type: BLOOD SPECIMENOrdering Facility: [facility] Address: [address] [place] [address] Result Comment: Mc calle: 1. National Cholesterol Education Program ATP III Guideline At-A-Glance Quick Desk Reference: National Heart, Lung, and Blood [place]. National Institutes of Health. 2001: NIH Publication No. 01-3305. 2. An International Atherosclerosis Society position paper: global recommendations for the management of dyslipidemia: executive summary, Atherosclerosis. 2014: 232(2):410-413. Performed By: #### 2 4323-8, 19009-8 ####[facility] LABCLIA [id number] [place] [address] [place] Cholesterol in VLDL [Mass/Vol] 15 mg/dL Normal <30 [facility] Comment on above: Order Comment: Speci men Type: BLOOD SPECIMENOrdering Facility: [facility] Address: [address] [place] [address] Performed By: #### 2 4323-8, 08000-0 ####[facility] LABCLIA [id number] [place] [address] [place] Cholesterol non HDL [Mass/Vol] 76 mg/dL Normal <130 [facility] Comment on above: Order Comment: Speci men Type: BLOOD SPECIMENOrdering Facility: [facility] Address: [address] [place] [address] Result Comment: <130 mg/dL, Optimal 130-159 mg/dL, Near optimal/above optimal 160-189 mg/dL, Borderline high 190-219 mg/dL, High >219 mg/dL, Very high Secondary prevention optimal non HDL Cholesterol levels are recommended to be <100 mg/dL Performed By: #### 2 4323-8, 46706-9 ####[facility] LABCLIA [id number] [address] [place] [facility] Cholesterol.total/Chol esterol in HDL [Mass ratio] 2.58 {ratio} Normal <5.10 [facility] Comment on above: Order Comment: Speci men Type: BLOOD SPECIMENOrdering Facility: [facility] Address: [address] [place] [address] Performed By: #### 2 4323-8, 48381-6 ####[facility] LABCLIA [id number] [place] [id number] [place] FASTING TIME 13 hrs Normal [facility] Comment on above: Order Comment: Speci men Type: BLOOD SPECIMENOrdering Facility: [facility] Address: [address] [place] [address] Performed By: #### 2 4323-8, 00952-6 ####[facility] LABCLIA [id number] [place] [address] [place] [facility] Triglyceride [Mass/Vol] 101 mg/dL Normal <150 [facility] Comment on above: Order Comment: Speci men Type: BLOOD SPECIMENOrdering Facility: [facility] Address: [address] [place] [address] Result Comment: <150 mg/dL, Normal 150-199 mg/dL, Borderline high 200-499 mg/dL, High >499 mg/dL, Very high Performed By: #### 2 4323-8, 00320-0 ####[facility] LABCLIA [id number] [address] OF [facility] CNOVon 12-09-2024 CNOV Office Visit (ENDOSF ) ----- PUJA WYMAN ([id number]) 1970 F [facility] Date Time Provider Department 12/09/24 2:30 PM GERI HUNG During your visit today, we recorded the following information about you: Pulse Blood pressure Weight Height 82/minute 116/79 52.8 kg 1.575 m Geri Hung MD 12/09/2024 3:52 PM Signed Geri Hung MD., FRCPE. Date: 12/09/2024 RE: Puja Wyman : 1970 Thank you for referring this patient who comes for evaluation of Type 2 diabetes mellitus. HISTORY OF PRESENT ILLNESS This is a 54 year female with type 2 diabetes mellitus for 5 years. She was treated with oral hypoglycemics and her treatment was stopped 2 years ago. Her glycemic control was stable until 2 years ago. Her glycemic control deteriorated after that. The patient was feeling tired and weak. The patient developed diabetic gastorpresis and lost 100 pounds. The patient was diagnosed with pancreatic cancer in 09/2024. The patient is on chemotherapy. No surgery. The patient was started on insulin therapy one year ago. Her glycemic control is poor. She has hypoglycemia post prandial. Her home glucose levels 200s-300s in the morning. Her glucose post prandial 250s. Her activity is limited. Last ophthalmology a year ago. Past Medical History: No past medical history on file. Adeno carcinoma of the pancreas Family History: No family history on file. Family history of diabetes mellitus her parents. Social History: SOCIAL HISTORY[1]Smoking quit recently. No alcohol use. Medications: Current Outpatient Medications Medication Sig FREESTYLE MEKA 3 PLUS SENSOR edy APPLY A NEW SENSOR TOPICALLY EVERY 15 DAYS. polyethylene glycol 3350 17 gram/dose powder MIX 17 GRAMS IN WATER AND DRINK ONCE DAILY oxybutynin (DITROPAN) 2.5 mg tablet Take 2.5 mg by mouth once daily. lurasidone (LATUDA) 20 mg tablet Take 20 mg by mouth daily with food. morphine SR (MS CONTIN) 15 mg 12 hr tablet Take 1 tablet by mouth two times a day for 30 days. Total dose of 45 mg twice daily. ondansetron (ZOFRAN) 8 mg tablet Take 1 tablet by mouth every 8 hours as needed for nausea/vomiting. oxyCODONE IR (ROXICODONE) 5 mg immediate release tablet Take 2 tablets by mouth every 4 hours as needed for pain for up to 30 days. naloxone 4 mg/actuation nasal spray (NARCAN) Use 1 spray in one nostril as needed for overdose. May repeat every 2 to 3 min in alternating nostrils until medical assistance is available Senna 8.6 mg tab Take 8.6 mg by mouth two times a day. 2 tabs gabapentin (NEURONTIN) 300 mg capsule Take 300 mg by mouth three times a day. 2 caps busPIRone (BUSPAR) 10 mg tablet Take 10 mg by mouth two times a day. cyclobenzaprine (FLEXERIL) 5 mg tablet Take 5 mg by mouth two times a day as needed for muscle spasm. lisinopril (ZESTRIL) 10 mg tablet Take 10 mg by mouth once daily. ondansetron (ZOFRAN) 4 mg tablet Take 4 mg by mouth every 8 hours as needed. insulin glargine,hum.rec.anlog (LANTUS SUBCUTANEOUS) Inject 22 Units subcutaneously daily at bedtime. insulin lispro (HUMALOG PEN SUBCUTANEOUS) Inject 14 Units subcutaneously three times a day with meals. metoprolol tartrate, short acting, (LOPRESSOR) 50 mg tablet Take 50 mg by mouth twice daily. (Patient taking differently: Take 25 mg by mouth two times a day.) rOPINIRole (REQUIP) 1 mg tablet Take 1 mg by mouth. (Patient taking differently: Take 1 mg by mouth two times a day. 1 tab in am and 2 tabs at bedtime) morphine SR (MS CONTIN) 30 mg 12 hr tablet Take 1 tablet by mouth two times a day for 30 days. Take with the 15 mg tab for total dose of 45mg twice daily (Patient not taking: Reported on 12/09/2024) prochlorperazine (COMPAZINE) 10 mg tablet Take 1 tablet by mouth every 6 hours as needed. (Patient not taking: Reported on 12/09/2024) omeprazole (PRILOSEC) 20 mg capsule take 1 capsule by mouth twice a day , 30 MINUTES BEFORE MORNING MEAL, NEEDED (Patient not taking: Reported on 12/09/2024) potassium chloride 20 mEq TbER Take 1 tablet by mouth twice daily. (Patient not taking: Reported on 12/09/2024) No current facility-administered medications for this visit. Allergies: ALLERGIES Allergen Reactions Soap Hives Bubble bath Review of Systems: Review of Systems Constitutional: Positive for appetite change and fatigue. HENT: Negative. Eyes: Negative. Respiratory: Negative. Cardiovascular: Negative. Gastrointestinal: Positive for abdominal pain. Endocrine: Negative. Genitourinary: Negative. Skin: Negative. PHYSICAL EXAM: BP 116/79 (BP Site: Right Arm, BP Position: Sitting, BP Cuff Size: Regular Adult) Pulse 82 Ht 157.5 cm (5' 2) Wt 52.8 kg (116 lb 6.5 oz) LMP (LMP Unknown) SpO2 99% BMI 21.29 kg/m? Body mass index is 21.29 kg/m?. Appearance Well appearing, alert, in no acute distress, well-hydrated, well nourished. Ey (more content not included)... Normal [facility] ----- PUJA WYMAN ([id number]) 1970 F CHT Date Time Provider Department 12/03/24 RALPH EDWARD [facility] During your visit today, we recorded the following information about you: Ralph Edward LISW 12/03/2024 10:06 AM Signed SOCIAL WORK FOLLOW UP NOTE: [facility] Date of service: 12/03/2024 TOPICS ADDRESSED: coping/support and community resources SW following up with patient regarding in-home waiver application. Connected with [facility] representative who advised Puja's application is pending and additional information will be collected from her PCP. Shared the same during our conversation today and provided patient with phone number to follow up with future inquires ( ). When queried directly about port placement, Puja reports that she regrets her decision to have it placed - I feel like a robot. Additionally, she is experiencing a great deal of hair loss and struggling with her her wig. SW encouraged follow up with [facility], as personnel will likely be able to assist her/provide tips. Advised Puja that I will be transitioning out of my current role 12/13/24 and provided SW line to request support after that date ([phone]). PLAN: Continue follow up as needed F/U APPOINTMENT: PRN Assigned SW listed in Care Team tab: Yes SHIVA Aguayo-S Allergies As of Date: 12/03/2024 Noted Allergy Reaction SOAP 04/22/2020 4 - Hives Comments: Bubble bath Date Reviewed: 12/02/2024 Reviewed by: Kerrie Cardoso, RN - Fully Assessed Reason for Visit: Social Work Services [507] Prescriptions as of 12/03/2024 - morphine SR (MS CONTIN) 30 mg 12 hr tablet Take 1 tablet by mouth two times a day for 14 days. - morphine SR (MS CONTIN) 15 mg 12 hr tablet Take 1 tablet by mouth two times a day for 14 days. Total dose of 45 mg twice daily. - oxyCODONE IR (ROXICODONE) 5 mg immediate release tablet Take 2 tablets by mouth every 4 hours as needed for pain for up to 30 days. - naloxone 4 mg/actuation nasal spray (NARCAN) Use 1 spray in one nostril as needed for overdose. May repeat every 2 to 3 min in alternating nostrils until medical assistance is available - Senna 8.6 mg tab Take 8.6 mg by mouth two times a day. 2 tabs - gabapentin (NEURONTIN) 300 mg capsule Take 300 mg by mouth three times a day. 2 caps - busPIRone (BUSPAR) 10 mg tablet Take 10 mg by mouth two times a day. - cyclobenzaprine (FLEXERIL) 5 mg tablet Take 5 mg by mouth two times a day as needed for muscle spasm. - lisinopril (ZESTRIL) 10 mg tablet Take 10 mg by mouth once daily. - ondansetron (ZOFRAN) 4 mg tablet Take 4 mg by mouth every 8 hours as needed. - insulin glargine,hum.rec.anlog (LANTUS SUBCUTANEOUS) Inject 22 Units subcutaneously daily at bedtime. - insulin lispro (HUMALOG PEN SUBCUTANEOUS) Inject 14 Units subcutaneously three times a day with meals. - prochlorperazine (COMPAZINE) 10 mg tablet Take 1 tablet by mouth every 6 hours as needed. - ondansetron (ZOFRAN) 8 mg tablet Take 1 tablet by mouth every 8 hours as needed for nausea/vomiting. - metoprolol tartrate, short acting, (LOPRESSOR) 50 mg tablet Take 50 mg by mouth twice daily. - omeprazole (PRILOSEC) 20 mg capsule take 1 capsule by mouth twice a day , 30 MINUTES BEFORE MORNING MEAL, NEEDED - potassium chloride 20 mEq TbER Take 1 tablet by mouth twice daily. - rOPINIRole (REQUIP) 1 mg tablet Take 1 mg by mouth. 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] 11/01/2024 Encounter Status:Closed by RALPH EDWARD on 12/03/24 [facility] BRIEF OP NOTon 12-02-2024 BRIEF OP NOT HNO ID: [id number] Author: MARYANNE HANNON MD Service: Interventional Radiology Author Type: Physician Type: Brief Op Note Filed: 12/02/2024 09:43 Note Text: BRIEF OPERATIVE / PROCEDURE NOTE LOG ID: [id number] SURGERY/PROCEDURE DATE: 12/02/2024 INCISION/PROCEDURE START TIME: 9:05 AM INCISION CLOSE/PROCEDURE END TIME: 9:34 AM SURGEON(S)/PROCEDURALIST( S) AND SECURITY FIELD SUPERVISOR(S): Surgeons and Role: * Maryanne Hannon MD - Primary No Additional Staff SURGERY/PROCEDURE(S): Port placement ANESTHESIA: Procedural Sedation FINDINGS: Patent R IJ. Vaccess port, tip at cavoatrial junction. Ready to use. ESTIMATED BLOOD LOSS: <10 mls SPECIMENS: None CLOSURE TECHNIQUE: Primary PRE-OP/PRE-PROCEDURE DIAGNOSIS: pancreatic ca POST-OP/POST-PROCEDURE DIAGNOSIS: Same as Preop SIGNATURE: Maryanne Hannon MD PATIENT NAME: Puja Wyman DATE: December 02, 2024 TIME: 9:40 AM [facility] HISTORY PHYSICALon HISTORY PHYSICAL HNO ID: [id number] Author: MARYANNE HANNON MD Service: Interventional Radiology Author Type: Physician Type: H&P Filed: 12/02/2024 08:32 Note Text: UPDATED PROCEDURAL SEDATION HISTORY AND PHYSICAL EXAMINATION SERVICE DATE: 12/02/2024 SERVICE TIME: 8:32 AM PHYSICAL EXAM MUST BE COMPLETED ON ADMISSION PROCEDURE SCHEDULED: Procedure(s): INSERTION PORT VENOUS ACCESS ADULT (Pending) RADIOLOGY ORDER PLACED: The History and Physical (completed in the past 30 days) has been reviewed and the patient has been examined. The contents accurately reflect the patient's condition with the following additions or revisions since the HANDP was completed. ASA Class: ASA Class: Patient with mild systemic disease Examination indicates no changes. AIRWAY: Mouth opening greater than 3 fingerbreadths: Yes Neck Full Range of Motion: Yes LUNGS: Lungs clear to auscultation CARDIAC: Regular rhythm,Regular rate Provisional Diagnosis/Treatment Plan: port placement Sedation Goal: Moderate This HANDP can be found in the Electronic Medical Record dated 11/13/24. SIGNATURE: Maryanne Hannon MD PATIENT NAME: Puja 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 Fellow physician(s): None Resident physician(s): None Advanced practice provider(s): None Medical Student(s): None Pre-procedure diagnosis: Pancreatic cancer Post-procedure diagnosis: Same Indication: Administration of chemotherapy Additional clinical history: None PROCEDURE SUMMARY: - Venous access with ultrasound guidance - Tunneled port insertion under fluoroscopic guidance - Additional procedure(s): None PROCEDURE DETAILS: Pre-procedure Consent: Consent obtained with the patient as documented. Medication reconciliation: Done Jesica-procedure discussion: The appropriate elements of the pre-procedure discussion, safety check list and sign-out were performed. Time out was completed before start of procedure. Preparation (MIPS): The site was prepared and draped using all elements of maximal sterile barrier technique including sterile gloves, sterile gown, cap, mask, large sterile sheet, sterile ultrasound probe cover, hand hygiene and cutaneous antisepsis with 2% chlorhexidine. Medical reason for site preparation exception (MIPS): Not applicable Contrast: Contrast agent: Contrast volume (mL): Image Guidance: Fluoroscopic and sonographic guidance with digital image storage Radiation/Dose: FLUOROSCOPIC RADIATION SUMMARY: Plane A, Air Kerma: 1.0 mGy Dose Area Product (DAP): 28.34 Fluoro Time: 0:06 min:sec Radiation dose exceed 5 Gy: No If radiation dose exceeded 5 Gy, was counseling and instructional brochure provided: N/A Anesthesia/Sedation: Level of anesthesia/sedation: Moderate sedation (conscious sedation) Anesthesia/sedation administered by: Independent trained observer under attending supervision with continuous monitoring of the patient?s level of consciousness and physiologic status Total intra-service sedation time (minutes): 45 Local anesthesia: 2 % lidocaine Antibiotics and meds: Cefazolin Antibiotic infusion start time: 8:50 AM Prophylactic antibiotic administered: Within 1 hour of procedure start time or 2 hours for vancomycin or fluoroquinolones Additional med: None Additional med: None Start of procedure: 9:05 AM End of procedure: 9:34 AM TECHNIQUE: Patient position: Supine Access Local anesthesia was administered. The vessel was sonographically evaluated and determined to be patent. Real time ultrasound was used to visualize needle entry into the vessel and a permanent image was stored. Vein accessed: Internal jugular vein Access technique: Micropuncture set with 21 gauge needle Venography Indication for venography: Not performed Vein catheterized: Not applicable Findings: Not applicable Port placement An incision was made at the upper chest, a pocket was created, and the catheter was tunneled subcutaneously to the venous access site and trimmed to appropriate length. The port was inserted into the pocket and the catheter was advanced via a peel-away sheath into the vein under fluoroscopic guidance. The port was sutured into the pocket using absorbable suture. Catheter tip location was fluoroscopically verified and a permanent image was stored. Port placed: BD Vaccess power-injectable port Catheter flush: Normal saline Closure The access site and incision were closed and sterile dressing(s) were applied. Sponge counts were ascertained. Access site closure technique: Tissue adhesive Incision closure technique: Absorbable suture and tissue adhesive Patient discharged from procedure suite with device accessed: No Additional Details Additional description of procedure: None Equipment details: None Number and Type of Removed Specimens: : N/A Estimated blood loss (mL): Less than 10 Standardized report: SIR_Port_v3 COMPLICATIONS: No immediate complications CONCLUSION: The patient was comfortable and was transferred to the recovery room in stable condition. The procedure was performed by the: attending radiologist, without an assistant store manager. The attending radiologist performed the following procedural activities: Entire procedure IMPRESSION: INSERTION OF RIGHT-SIDED POWER-INJECTABLE SINGLE-LUMEN TUNNELED CHEST PORT, WITH CATHETER TIP IN THE EXPECTED LOCATION OF THE CAVOATRIAL JUNCTION. PLAN: THE PORT MAY BE USED IMMEDIATELY. RECOMMEND NORMAL SALINE FLUSH INTERVAL OF 90 DAYS WHEN NOT BEING USED. ATTESTATION: Signer name: Maryanne Hannon MD I attest that I was present for the entire procedure. I reviewed the stored images and agree with the report as written. Display And Banner Designer: ZENIA Transcribe D (more content not included)... 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 Fellow physician(s): None Resident physician(s): None Advanced practice provider(s): None Medical Student(s): None Pre-procedure diagnosis: Pancreatic cancer Post-procedure diagnosis: Same Indication: Administration of chemotherapy Additional clinical history: None PROCEDURE SUMMARY: - Venous access with ultrasound guidance - Tunneled port insertion under fluoroscopic guidance - Additional procedure(s): None PROCEDURE DETAILS: Pre-procedure Consent: Consent obtained with the patient as documented. Medication reconciliation: Done Jesica-procedure discussion: The appropriate elements of the pre-procedure discussion, safety check list and sign-out were performed. Time out was completed before start of procedure. Preparation (MIPS): The site was prepared and draped using all elements of maximal sterile barrier technique including sterile gloves, sterile gown, cap, mask, large sterile sheet, sterile ultrasound probe cover, hand hygiene and cutaneous antisepsis with 2% chlorhexidine. Medical reason for site preparation exception (MIPS): Not applicable Contrast: Contrast agent: Contrast volume (mL): Image Guidance: Fluoroscopic and sonographic guidance with digital image storage Radiation/Dose: FLUOROSCOPIC RADIATION SUMMARY: Plane A, Air Kerma: 1.0 mGy Dose Area Product (DAP): 28.34 Fluoro Time: 0:06 min:sec Radiation dose exceed 5 Gy: No If radiation dose exceeded 5 Gy, was counseling and instructional brochure provided: N/A Anesthesia/Sedation: Level of anesthesia/sedation: Moderate sedation (conscious sedation) Anesthesia/sedation administered by: Independent trained observer under attending supervision with continuous monitoring of the patient?s level of consciousness and physiologic status Total intra-service sedation time (minutes): 45 Local anesthesia: 2 % lidocaine Antibiotics and meds: Cefazolin Antibiotic infusion start time: 8:50 AM Prophylactic antibiotic administered: Within 1 hour of procedure start time or 2 hours for vancomycin or fluoroquinolones Additional med: None Additional med: None Start of procedure: 9:05 AM End of procedure: 9:34 AM TECHNIQUE: Patient position: Supine Access Local anesthesia was administered. The vessel was sonographically evaluated and determined to be patent. Real time ultrasound was used to visualize needle entry into the vessel and a permanent image was stored. Vein accessed: Internal jugular vein Access technique: Micropuncture set with 21 gauge needle Venography Indication for venography: Not performed Vein catheterized: Not applicable Findings: Not applicable Port placement An incision was made at the upper chest, a pocket was created, and the catheter was tunneled subcutaneously to the venous access site and trimmed to appropriate length. The port was inserted into the pocket and the catheter was advanced via a peel-away sheath into the vein under fluoroscopic guidance. The port was sutured into the pocket using absorbable suture. Catheter tip location was fluoroscopically verified and a permanent image was stored. Port placed: BD Vaccess power-injectable port Catheter flush: Normal saline Closure The access site and incision were closed and sterile dressing(s) were applied. Sponge counts were ascertained. Access site closure technique: Tissue adhesive Incision closure technique: Absorbable suture and tissue adhesive Patient discharged from procedure suite with device accessed: No Additional Details Additional description of procedure: None Equipment details: None Number and Type of Removed Specimens: : N/A Estimated blood loss (mL): Less than 10 Standardized report: SIR_Port_v3 COMPLICATIONS: No immediate complications CONCLUSION: The patient was comfortable and was transferred to the recovery room in stable condition. The procedure was performed by the: attending radiologist, without an assistant store manager. The attending radiologist performed the following procedural activities: Entire procedure IMPRESSION: INSERTION OF RIGHT-SIDED POWER-INJECTABLE SINGLE-LUMEN TUNNELED CHEST PORT, WITH CATHETER TIP IN THE EXPECTED LOCATION OF THE CAVOATRIAL JUNCTION. PLAN: THE PORT MAY BE USED IMMEDIATELY. RECOMMEND NORMAL SALINE FLUSH INTERVAL OF 90 DAYS WHEN NOT BEING USED. ATTESTATION: Signer name: Maryanne Hannon MD I attest that I was present for the entire procedure. I reviewed the stored images and agree with the report as written. Display And Banner Designer: ZENIA Transcribe Da (more content not included)... Normal [facility] IR US VASCULAR ACCESS GUIDEo n 12-02-2024 IR US VASCULAR ACCESS GUIDE * * *Final Report* * * DATE OF EXAM: Dec 02 2024 9:45AM [facility] [id number] - IR US VASCULAR ACCESS GUIDE / PROCEDURE REASON: Cancer of pancreas, tail (HCC) [C25.2] * * * * Physician Interpretation * * * * PROCEDURE: VENOUS PORT PLACEMENT Procedural Personnel Attending physician(s): Maryanne Hannon M.D. Fellow physician(s): None Resident physician(s): None Advanced practice provider(s): None Medical Student(s): None Pre-procedure diagnosis: Pancreatic cancer Post-procedure diagnosis: Same Indication: Administration of chemotherapy Additional clinical history: None PROCEDURE SUMMARY: - Venous access with ultrasound guidance - Tunneled port insertion under fluoroscopic guidance - Additional procedure(s): None PROCEDURE DETAILS: Pre-procedure Consent: Consent obtained with the patient as documented. Medication reconciliation: Done Jesica-procedure discussion: The appropriate elements of the pre-procedure discussion, safety check list and sign-out were performed. Time out was completed before start of procedure. Preparation (MIPS): The site was prepared and draped using all elements of maximal sterile barrier technique including sterile gloves, sterile gown, cap, mask, large sterile sheet, sterile ultrasound probe cover, hand hygiene and cutaneous antisepsis with 2% chlorhexidine. Medical reason for site preparation exception (MIPS): Not applicable Contrast: Contrast agent: Contrast volume (mL): Image Guidance: Fluoroscopic and sonographic guidance with digital image storage Radiation/Dose: FLUOROSCOPIC RADIATION SUMMARY: Plane A, Air Kerma: 1.0 mGy Dose Area Product (DAP): 28.34 Fluoro Time: 0:06 min:sec Radiation dose exceed 5 Gy: No If radiation dose exceeded 5 Gy, was counseling and instructional brochure provided: N/A Anesthesia/Sedation: Level of anesthesia/sedation: Moderate sedation (conscious sedation) Anesthesia/sedation administered by: Independent trained observer under attending supervision with continuous monitoring of the patient?s level of consciousness and physiologic status Total intra-service sedation time (minutes): 45 Local anesthesia: 2 % lidocaine Antibiotics and meds: Cefazolin Antibiotic infusion start time: 8:50 AM Prophylactic antibiotic administered: Within 1 hour of procedure start time or 2 hours for vancomycin or fluoroquinolones Additional med: None Additional med: None Start of procedure: 9:05 AM End of procedure: 9:34 AM TECHNIQUE: Patient position: Supine Access Local anesthesia was administered. The vessel was sonographically evaluated and determined to be patent. Real time ultrasound was used to visualize needle entry into the vessel and a permanent image was stored. Vein accessed: Internal jugular vein Access technique: Micropuncture set with 21 gauge needle Venography Indication for venography: Not performed Vein catheterized: Not applicable Findings: Not applicable Port placement An incision was made at the upper chest, a pocket was created, and the catheter was tunneled subcutaneously to the venous access site and trimmed to appropriate length. The port was inserted into the pocket and the catheter was advanced via a peel-away sheath into the vein under fluoroscopic guidance. The port was sutured into the pocket using absorbable suture. Catheter tip location was fluoroscopically verified and a permanent image was stored. Port placed: BD Vaccess power-injectable port Catheter flush: Normal saline Closure The access site and incision were closed and sterile dressing(s) were applied. Sponge counts were ascertained. Access site closure technique: Tissue adhesive Incision closure technique: Absorbable suture and tissue adhesive Patient discharged from procedure suite with device accessed: No Additional Details Additional description of procedure: None Equipment details: None Number and Type of Removed Specimens: : N/A Estimated blood loss (mL): Less than 10 Standardized report: SIR_Port_v3 COMPLICATIONS: No immediate complications CONCLUSION: The patient was comfortable and was transferred to the recovery room in stable condition. The procedure was performed by the: attending radiologist, without an assistant store manager. The attending radiologist performed the following procedural activities: Entire procedure IMPRESSION: INSERTION OF RIGHT-SIDED POWER-INJECTABLE SINGLE-LUMEN TUNNELED CHEST PORT, WITH CATHETER TIP IN THE EXPECTED LOCATION OF THE CAVOATRIAL JUNCTION. PLAN: THE PORT MAY BE USED IMMEDIATELY. RECOMMEND NORMAL SALINE FLUSH INTERVAL OF 90 DAYS WHEN NOT BEING USED. ATTESTATION: Signer name: Maryanne Hannon MD I attest that I was present for the entire procedure. I reviewed the stored images and agree with the report as written. Display And Banner Designer: PSCVanessa [employer] (more content not included)... [facility] NURSING PROGon 12-02-2024 NURSING PROG HNO ID: [id number] Author: KELSY SAPP RN Service: Nursing Author Type: Registered Nurse Type: Nursing Progress Note Filed: 12/02/2024 07:38 Note Text: PATIENT EDUCATION TOPIC: PROCEDURE / SURGERY: Procedure/Surgery: Port placement PATIENT NAME: Puja Wyman PATIENT LOCATION: [facility] INTERVENTIONAL RADIOL* READINESS TO LEARN COGNITIVE ABILITY: Alert and oriented MOTIVATION TO LEARN: Interested FAMILY SUPPORT: High - Very involved in pt care INSTRUCTION PROVIDED TO: Patient PATIENT LEARNS BEST BY: Individual Instruction Written Instruction - Hand-outs Verbal Instruction FACTORS AFFECTING LEARNING: None PHYSICAL LIMITATIONS AFFECTING LEARNING: None LEARNING RESPONSE DIAGNOSIS: ADULT: Port placement for treatment PATIENT/FAMILY RESPONSE: Verbalizes understanding of: POST-PROCEDURE INSTRUCTIONS-Correct actions to take to reduce post procedure complications PRE-PROCEDURE INSTRUCTIONS-Correct action to take to follow pre-procedure instructions METHOD OF INSTRUCTION: Individual instruction Written instruction/Handouts Verbal instruction FOLLOW-UP PLAN: Follow-up with Primary Care INSTRUCTIONAL AIDS USED: NA SUPPLEMENTAL MATERIAL PROVIDED TO PATIENT: None REFERRAL (RECOMMENDATION): None Electronically Signed By: Kelsy Sapp [facility] CBC W Auto Differential pane l (Bld)on 11-27-2024 Basophils (Bld) [#/Vol] 10*3/uL Normal <0.11 [facility] Comment on above: Order Comment: Speci men Type: BLOOD SPECIMENOrdering Facility: [facility] Address: [address] [place] [address] Performed By: #### 5 7021-8 ####[facility] [id number] [address] [place] Basophils/100 WBC (Bld) 0.4 % Normal [facility] Comment on above: Order Comment: Speci men Type: BLOOD SPECIMENOrdering Facility: [facility] Address: [address] [place] [address] Performed By: #### 5 7021-8 ####[facility] [place] [id number] [place] [address] [place] Differential cell count method Nom (Bld) Auto Normal [facility] Comment on above: Order Comment: Speci men Type: BLOOD SPECIMENOrdering Facility: [facility] Address: [address] [place] [address] Performed By: #### 5 7021-8 ####[facility] [place] [id number] [place] [address] [place] Eosinophils (Bld) [#/Vol] 0.04 10*3/uL Normal <0.46 [facility] Comment on above: Order Comment: Speci men Type: BLOOD SPECIMENOrdering Facility: [facility] Address: [address] [place] [address] Performed By: #### 5 7021-8 ####[facility] [place] [id number] [place] [address] [place] Eosinophils/100 WBC (Bld) 0.8 % Normal [facility] Comment on above: Order Comment: Speci men Type: BLOOD SPECIMENOrdering Facility: [facility] Address: [address] [place] [address] Performed By: #### 5 7021-8 ####[facility] [id number] [place] [address] [place] Erythrocyte distribution width (RBC) [Ratio] 13.4 % Normal 11.5-15.0 [facility] Comment on above: Order Comment: Speci men Type: BLOOD SPECIMENOrdering Facility: [facility] Address: [address] [place] [address] Performed By: #### 5 7021-8 ####[facility] [id number] [place] [address] [place] Hematocrit (Bld) [Volume fraction] 31.8 % Low 36.0-46.0 [facility] Comment on above: Order Comment: Speci men Type: BLOOD SPECIMENOrdering Facility: [facility] Address: [address] [place] [address] Performed By: #### 5 7021-8 ####[facility] [id number] [place] [address] [place] Hemoglobin (Bld) [Mass/Vol] 10.2 g/dL Low 11.5-15.5 [facility] Comment on above: Order Comment: Speci men Type: BLOOD SPECIMENOrdering Facility: [facility] Address: [address] [place] [address] Performed By: #### 5 7021-8 ####[facility] [place] [id number] [place] [address] [place] Immature granulocytes (Bld) [#/Vol] 0.07 10*3/uL Normal <0.10 [facility] Comment on above: Order Comment: Speci men Type: BLOOD SPECIMENOrdering Facility: [facility] Address: [address] [place] [address] Performed By: #### 5 7021-8 ####[facility] [id number] [place] [address] [place] Immature granulocytes/100 WBC (Bld) 1.4 % Normal [facility] Comment on above: Order Comment: Speci men Type: BLOOD SPECIMENOrdering Facility: [facility] Address: [address] [place] [address] Performed By: #### 5 7021-8 ####[facility] [id number] [place] [address] [place] Lymphocytes (Bld) [#/Vol] 1.84 10*3/uL Normal 1.00-4.00 [facility] Comment on above: Order Comment: Speci men Type: BLOOD SPECIMENOrdering Facility: [facility] Address: [address] [place] [address] Performed By: #### 5 7021-8 ####[facility] [id number] [place] [address] [place] Lymphocytes/100 WBC (Bld) 37.9 % Normal [facility] Comment on above: Order Comment: Speci men Type: BLOOD SPECIMENOrdering Facility: [facility] Address: [address] [place] [address] Performed By: #### 5 7021-8 ####[facility] [id number] [place] [address] [place] MCH (RBC) [Entitic mass] 27.7 pg Normal 26.0-34.0 [facility] Comment on above: Order Comment: Speci men Type: BLOOD SPECIMENOrdering Facility: [facility] Address: [address] [place] [address] Performed By: #### 5 7021-8 ####[facility] [id number] [place] [address] [place] MCHC (RBC) [Mass/Vol] 32.1 g/dL Normal 30.5-36.0 [facility] Comment on above: Order Comment: Speci men Type: BLOOD SPECIMENOrdering Facility: [facility] Address: [address] [place] [address] Performed By: #### 5 7021-8 ####[facility] [id number] [place] [address] [place] MCV (RBC) [Entitic vol] 86.4 fL Normal 80.0-100.0 [facility] Comment on above: Order Comment: Speci men Type: BLOOD SPECIMENOrdering Facility: [facility] Address: [address] [place] [address] Performed By: #### 5 7021-8 ####[facility] [id number] [place] [address] [place] Monocytes (Bld) [#/Vol] 0.43 10*3/uL Normal <0.87 [facility] Comment on above: Order Comment: Speci men Type: BLOOD SPECIMENOrdering Facility: [facility] Address: [address] [place] [address] Performed By: #### 5 7021-8 ####[facility] [id number] [place] [address] [place] Monocytes/100 WBC (Bld) 8.8 % Normal [facility] Comment on above: Order Comment: Speci men Type: BLOOD SPECIMENOrdering Facility: [facility] Address: [address] [place] [address] Performed By: #### 5 7021-8 ####[facility] [place] [id number] [place] [address] [place] Neutrophils (Bld) [#/Vol] 2.46 10*3/uL Normal 1.45-7.50 [facility] Comment on above: Order Comment: Speci men Type: BLOOD SPECIMENOrdering Facility: [facility] Address: [address] [place] [address] Performed By: #### 5 7021-8 ####[facility] [id number] [place] [address] [place] Neutrophils/100 WBC (Bld) 50.7 % Normal [facility] Comment on above: Order Comment: Speci men Type: BLOOD SPECIMENOrdering Facility: [facility] Address: [address] [place] [address] Performed By: #### 5 7021-8 ####[facility] [id number] [place] [address] [place] Nucleated RBC (Bld) [#/Vol] 0.03 10*3/uL High <0.01 [facility] Comment on above: Order Comment: Speci men Type: BLOOD SPECIMENOrdering Facility: [facility] Address: [address] [place] [address] Performed By: #### 5 7021-8 ####[facility] [id number] [place] [address] [place] Nucleated RBC/100 WBC (Bld) [Ratio] 0.6 /100 WBC Normal [facility] Comment on above: Order Comment: Speci men Type: BLOOD SPECIMENOrdering Facility: [facility] Address: [address] [place] [address] Performed By: #### 5 7021-8 ####[facility] [place] [id number] [place] [address] [place] Platelet mean volume (Bld) [Entitic vol] 9.8 fL Normal 9.0-12.7 [facility] Comment on above: Order Comment: Speci men Type: BLOOD SPECIMENOrdering Facility: [facility] Address: [address] [place] [address] Performed By: #### 5 7021-8 ####[facility] [place] [id number] [place] [address] [place] Platelets (Bld) [#/Vol] 165 10*3/uL Normal 150-400 [facility] Comment on above: Order Comment: Speci men Type: BLOOD SPECIMENOrdering Facility: [facility] Address: [address] [place] [address] Performed By: #### 5 7021-8 ####[facility] [id number] [place] [address] [place] RBC (Bld) [#/Vol] 3.68 10*6/uL Low 3.90-5.20 [facility] Comment on above: Order Comment: Speci men Type: BLOOD SPECIMENOrdering Facility: [facility] Address: [address] [place] [address] Performed By: #### 5 7021-8 ####[facility] [id number] [place] [address] [place] WBC (Bld) [#/Vol] 4.86 10*3/uL Normal 3.70-11.00 [facility] Comment on above: Order Comment: Speci men Type: BLOOD SPECIMENOrdering Facility: [facility] Address: [address] [place] [address] Performed By: #### 5 7021-8 ####[facility] [id number] [address] [place] Cancer Ag19-9 SerPl-aCncon 1 Cancer Ag 19-9 Qn 426.0 [arb'U]/mL High <36.0 [facility] Comment on above: Order Comment: Speci men Type: BLOOD SPECIMENOrdering Facility: [facility] Address: [address] [place] [address] Result Comment: [facility] er antigen 19-9 test is used as an aid in monitoring response to treatment or recurrence in patients with established pancreatic, hepatobiliary, or gastrointestinal malignancies. Clinical correlation is required. The CA 19-9 Antigen test was performed using the [employer] [place] [employer] DXI paramagnetic particle chemiluminescent immunoassay method. Results obtained with different assay methods or kits cannot be used interchangeably. Performed By: #### 2 4108-3 ####[facility] LABIA [id number] [place] [address] [place] Comprehensive metabolic 2000 panelon 11-27-2024 Albumin [Mass/Vol] 3.6 g/dL Low 3.9-4.9 [facility] Comment on above: Order Comment: Speci men Type: BLOOD SPECIMENOrdering Facility: [facility] Address: [address] [place] [address] Performed By: #### 2 4323-8 ####[facility] [id number] [place] [address] [place] ALP [Catalytic activity/Vol] 116 U/L Normal 34-123 [facility] Comment on above: Order Comment: Speci men Type: BLOOD SPECIMENOrdering Facility: [facility] Address: [address] [place] [address] Performed By: #### 2 4323-8 ####[facility] [id number] [place] [address] [place] ALT [Catalytic activity/Vol] 18 U/L Normal 7-38 [facility] Comment on above: Order Comment: Speci men Type: BLOOD SPECIMENOrdering Facility: [facility] Address: [address] [place] [address] Performed By: #### 2 4323-8 ####[facility] [place] [id number] [place] [address] [place] Anion gap [Moles/Vol] 11 mmol/L Normal 8-15 [facility] Comment on above: Order Comment: Speci men Type: BLOOD SPECIMENOrdering Facility: [facility] Address: [address] [place] [address] Performed By: #### 2 4323-8 ####[facility] [id number] [place] [address] [place] AST [Catalytic activity/Vol] 22 U/L Normal 13-35 [facility] Comment on above: Order Comment: Speci men Type: BLOOD SPECIMENOrdering Facility: [facility] Address: [address] [place] [address] Performed By: #### 2 4323-8 ####[facility] [id number] [place] [address] [place] Bilirubin [Mass/Vol] mg/dL Low 0.2-1.3 [facility] Comment on above: Order Comment: Speci men Type: BLOOD SPECIMENOrdering Facility: [facility] Address: [address] [place] [address] Performed By: #### 2 4323-8 ####[facility] [id number] [place] [address] [place] Calcium [Mass/Vol] 8.8 mg/dL Normal 8.5-10.2 [facility] Comment on above: Order Comment: Speci men Type: BLOOD SPECIMENOrdering Facility: [facility] Address: [address] [place] [address] Performed By: #### 2 4323-8 ####[facility] [id number] [place] [address] [place] Chloride [Moles/Vol] 96 mmol/L Low 98-107 [facility] Comment on above: Order Comment: Speci men Type: BLOOD SPECIMENOrdering Facility: [facility] Address: [address] [place] [address] Performed By: #### 2 4323-8 ####[facility] [id number] [place] [address] [place] CO2 [Moles/Vol] 25 mmol/L Normal 22-30 [facility] Comment on above: Order Comment: Speci men Type: BLOOD SPECIMENOrdering Facility: [facility] Address: [address] [place] [address] Performed By: #### 2 4323-8 ####[facility] [id number] [place] [address] [place] Creatinine [Mass/Vol] 0.44 mg/dL Low 0.58-0.96 [facility] Comment on above: Order Comment: Speci men Type: BLOOD SPECIMENOrdering Facility: [facility] Address: [address] [place], [place] [address] Performed By: #### 2 4323-8 ####[facility] [id number] [place] [address] [place] eGFRcr SerPlBld CKD-EPI 2020 114 mL/min/1.73m??? Normal >=60 [facility] Comment on above: Order Comment: Rivka ayers Type: BLOOD SPECIMENOrdering Facility: [facility] Address: [address] [place] [address] Result Comment: Niki mated Glomerular Filtration Rate (eGFR) is calculated using the 2020 CKD-EPI creatinine equation. This equation utilizes serum creatinine, sex, and age as parameters. The creatinine assay has traceable calibration to isotope dilution-mass spectrometry. Refer to KDIGO guidelines for clinical interpretation. In patients with unstable renal function, e.g. those with acute kidney injury, the eGFR may not accurately reflect actual GFR. Performed By: #### 2 4323-8 ####[facility] [id number] [place] [address] [place] Glucose [Mass/Vol] 362 mg/dL High 74-99 [facility] Comment on above: Order Comment: Rivka ayers Type: BLOOD SPECIMENOrdering Facility: [facility] Address: [address] [place] [address] Result Comment: The [place] [employer] (ADA) provides guidance for cutoff values for fasting glucose and random glucose. The ADA defines fasting as no caloric intake for at least 8 hours. Fasting plasma glucose results between 100 to 125 mg/dL indicate increased risk for diabetes (prediabetes). Fasting plasma glucose results greater than or equal to 126 mg/dL meet the criteria for diagnosis of diabetes. In the absence of unequivocal hyperglycemia, results should be confirmed by repeat testing. In a patient with classic symptoms of hyperglycemia or hyperglycemic crisis, random plasma glucose results greater than or equal to 200 mg/dL meet the criteria for diagnosis of diabetes. Reference: Standards of Medical Care in Diabetes 2016, [place] [employer]. Diabetes Care. 2016.39(Suppl 1). Performed By: #### 2 4323-8 ####[facility] [id number] [place] [address] [place] Potassium [Moles/Vol] 3.6 mmol/L Low 3.7-5.1 [facility] Comment on above: Order Comment: Speci men Type: BLOOD SPECIMENOrdering Facility: [facility] Address: [address] [place] [address] Performed By: #### 2 4323-8 ####[facility] [id number] [place] [address] [place] Protein [Mass/Vol] 6.7 g/dL Normal 6.3-8.0 [facility] Comment on above: Order Comment: Speci men Type: BLOOD SPECIMENOrdering Facility: [facility] Address: [address] [place] [address] Performed By: #### 2 4323-8 ####[facility] [place] [id number] [place] [address] [place] Sodium [Moles/Vol] 132 mmol/L Low 136-144 [facility] Comment on above: Order Comment: Speci men Type: BLOOD SPECIMENOrdering Facility: [facility] Address: [address] [place] [address] Performed By: #### 2 4323-8 ####[facility] [place] [id number] [place] [address] [place] Urea nitrogen [Mass/Vol] 7 mg/dL Normal 7-21 [facility] Comment on above: Order Comment: Speci men Type: BLOOD SPECIMENOrdering Facility: [facility] Address: [address] [place] [address] Performed By: #### 2 4323-8 ####[facility] [id number] [place] [address] [place] PT panel Coag (PPP)on 2024 INR Coag (PPP) [Relative time] 1.0 {INR} Normal 0.9-1.3 [facility] Comment on above: Order Comment: Speci men Type: BLOOD SPECIMENOrdering Facility: [facility] Address: [address] [place], [place] [address], [place] [address] Result Comment: Kim min K Antagonist (VKA) Therapeutic Range: INR 2 to 3 (Target INR of 2.5) Note: For patients treated with VKA drugs, such as warfarin, the [place] [employer] 2012 Guideline recommends a therapeutic INR range of 2 to 3 (target INR of 2.5). This recommendation includes high-risk patients with antiphospholipid syndrome with previous arterial or venous thromboembolism, current-generation mechanical or bioprosthetic aortic heart valve replacement. Note: Patients with mechanical aortic valve replacement and additional risk factors for thromboembolic events (atrial fibrillation, previous thromboembolism, LV dysfunction, hypercoagulable conditions) or an older generation mechanical AVR (i.e., ball in-Cage) or any mechanical MVR should have a INR therapeutic range of 2.5 to 3.5 (target INR of 3). En[place] MANTILLA, et al. Chest 2012, 141:7S-47S Kareem RA, et al. [facility] 2017, 70: 252-289 Performed By: #### 3 4528-0 ####[facility] [id number] [place] [address] [place] PT Coag (PPP) [Time] 11.2 s Normal 9.7-13.0 [facility] Hospital Comment on above: Order Comment: Speci men Type: BLOOD SPECIMENOrdering Facility: [facility] Address: [address] [place] [address] Performed By: #### 3 4528-0 ####[facility] [id number] [place] [id number] [place] CNPAfua 11-26-2024 CNPN Telephone (IRRFV) ----- PUJA WYMAN ([id number]) 1970 F CHT Date Time Provider Department 9/30/25 ROSINA JJ IRRFV During your visit today, we recorded the following information about you: Rosina Jj RN 11/26/2024 1:55 PM Signed RADIOLOGY PROCEDURE INSTRUCTIONS: You are scheduled for a mediport placement, on Monday December 02, 2024 You are to arrive at 7:00 am and check in at [facility] Radiology Department located on 1st floor. You can expect to be here for about 4 hours. Address: [place] [address] [place] [address] Diet: Do not eat any solid food after midnight the night before your procedure. You may drink clear liquids until 6:00 am the day of your procedure, which means black coffee, apple juice, tea, jello, Gatorade, or water only. Medications: Please take prescribed medications such as heart, blood pressure, anti-seizure, and chronic pain medications with a sip of clear liquids. Bring your current medication list. Radiology recommends these medication restrictions: If you are taking any medication that is a blood thinner, hypoglycemic, weight loss agent, etc., you may need to hold this medication prior to procedure. Not stopping the medication correctly may result in your procedure being canceled. If you are diabetic please contact your physician regarding diet restrictions and managing insulin/diabetes medications pre-procedure: Stop oral hypoglycemic the day of this procedure Hold short acting insulin the day of procedure Long acting insulin, take ? dose (Please take 11 unit(s) of Lantus at bedtime, the night prior to your procedure. Please take your short acting insulin at dinner as usual. Labs: Lab work needs to be drawn? Yes, an INR needs to be drawn at least one day prior to procedure. Please bring a copy of the results if they are not done at a [facility] facility. Assembler Seat/Transportation: How will you be arriving for your procedure? Private car. If you will be arriving via ambulance or public transportation, please call to discuss. You will need a responsible adult to accompany you to and from the procedure. We will verify your ride home upon arrival. Minors/visitors requiring supervision cannot accompany you unless there is another responsible adult with them. Child and/or dependent care arrangements need to be made. If you need to cancel or reschedule your procedure, please call our planner scheduler: Bernice James and Aisha [phone]; 8am - 4pm M-F If you have any additional questions please call: [facility] nurses desk at [phone] 8am - 4pm M-F. Allergies As of Date: 11/26/2024 Noted Allergy Reaction SOAP 04/22/2020 4 - Hives Comments: Bubble bath Date Reviewed: 11/20/2024 Reviewed by: Shakira John RN - Fully Assessed Prescriptions as of 11/26/2024 - morphine SR (MS CONTIN) 30 mg 12 hr tablet Take 1 tablet by mouth two times a day for 14 days. - morphine SR (MS CONTIN) 15 mg 12 hr tablet Take 1 tablet by mouth two times a day for 14 days. Total dose of 45 mg twice daily. - oxyCODONE IR (ROXICODONE) 5 mg immediate release tablet Take 2 tablets by mouth every 4 hours as needed for pain for up to 30 days. - naloxone 4 mg/actuation nasal spray (NARCAN) Use 1 spray in one nostril as needed for overdose. May repeat every 2 to 3 min in alternating nostrils until medical assistance is available - Senna 8.6 mg tab Take 8.6 mg by mouth two times a day. 2 tabs - gabapentin (NEURONTIN) 300 mg capsule Take 300 mg by mouth three times a day. 2 caps - busPIRone (BUSPAR) 10 mg tablet Take 10 mg by mouth two times a day. - cyclobenzaprine (FLEXERIL) 5 mg tablet Take 5 mg by mouth two times a day as needed for muscle spasm. - lisinopril (ZESTRIL) 10 mg tablet Take 10 mg by mouth once daily. - ondansetron (ZOFRAN) 4 mg tablet Take 4 mg by mouth every 8 hours as needed. - insulin glargine,hum.rec.anlog (LANTUS SUBCUTANEOUS) Inject 22 Units subcutaneously daily at bedtime. - insulin lispro (HUMALOG PEN SUBCUTANEOUS) Inject 14 Units subcutaneously three times a day with meals. - prochlorperazine (COMPAZINE) 10 mg tablet Take 1 tablet by mouth every 6 hours as needed. - ondansetron (ZOFRAN) 8 mg tablet Take 1 tablet by mouth every 8 hours as needed for nausea/vomiting. - metoprolol tartrate, short acting, (LOPRESSOR) 50 mg tablet Take 50 mg by mouth twice daily. - omeprazole (PRILOSEC) 20 mg capsule take 1 capsule by mouth twice a day , 30 MINUTES BEFORE MORNING MEAL, NEEDED - potassium chloride 20 mEq TbER Take 1 tablet by mouth twice daily. - rOPINIRole (REQUIP) 1 mg tablet Take 1 mg by mouth. Problem List As Of Date 11/26/2024 Noted Resolved Cancer of pancreas, tail (HCC) [C25.2] 11/01/2024 Encounter Number: [id number] (more content not included)... Normal [facility] CBC W Auto Differential pane l (Bld)on 11-20-2024 Basophils (Bld) [#/Vol] 10*3/uL Normal <0.11 [facility] Comment on above: Order Comment: Speci men Type: BLOOD SPECIMENOrdering Facility: [facility] Address: [address] [place] [address] Performed By: #### 5 7021-8 ####[facility] [id number] [place] [address] [place] Basophils/100 WBC (Bld) 0.2 % Normal [facility] Comment on above: Order Comment: Speci men Type: BLOOD SPECIMENOrdering Facility: [facility] Address: [address] [place] [address] Performed By: #### 5 7021-8 ####[facility] [id number] [place] [address] [place] Differential cell count method Nom (Bld) Auto Normal [facility] Comment on above: Order Comment: Speci men Type: BLOOD SPECIMENOrdering Facility: [facility] Address: [address] [place] [address] Performed By: #### 5 7021-8 ####[facility] [id number] [place] [address] [place] Eosinophils (Bld) [#/Vol] 0.05 10*3/uL Normal <0.46 [facility] Comment on above: Order Comment: Speci men Type: BLOOD SPECIMENOrdering Facility: [facility] Address: [address] [place] [address] Performed By: #### 5 7021-8 ####[facility] [place] [id number] [place] [address] [place] Eosinophils/100 WBC (Bld) 0.5 % Normal [facility] Comment on above: Order Comment: Speci men Type: BLOOD SPECIMENOrdering Facility: [facility] Address: [address] [place] [address] Performed By: #### 5 7021-8 ####[facility] [id number] [place] [address] [place] Erythrocyte distribution width (RBC) [Ratio] 13.0 % Normal 11.5-15.0 [facility] Comment on above: Order Comment: Speci men Type: BLOOD SPECIMENOrdering Facility: [facility] Address: [address] [place] [address] Performed By: #### 5 7021-8 ####[facility] [id number] [place] [address] [place] Hematocrit (Bld) [Volume fraction] 30.2 % Low 36.0-46.0 [facility] Comment on above: Order Comment: Speci men Type: BLOOD SPECIMENOrdering Facility: [facility] Address: [address] [place] [address] Performed By: #### 5 7021-8 ####[facility] [place] [id number] [place] [address] [place] Hemoglobin (Bld) [Mass/Vol] 10.0 g/dL Low 11.5-15.5 [facility] Comment on above: Order Comment: Speci men Type: BLOOD SPECIMENOrdering Facility: [facility] Address: [address] [place] [address] Performed By: #### 5 7021-8 ####[facility] [id number] [place] [address] [place] Immature granulocytes (Bld) [#/Vol] 0.03 10*3/uL Normal <0.10 [facility] Comment on above: Order Comment: Speci men Type: BLOOD SPECIMENOrdering Facility: [facility] Address: [address] [place] [address] Performed By: #### 5 7021-8 ####[facility] [place] [place] [id number] [place] [address] [place] Immature granulocytes/100 WBC (Bld) 0.3 % Normal [facility] Comment on above: Order Comment: Speci men Type: BLOOD SPECIMENOrdering Facility: [facility] Address: [address] [place] [address] Performed By: #### 5 7021-8 ####[facility] [place] [place] [id number] [place] [address] [place] Lymphocytes (Bld) [#/Vol] 2.33 10*3/uL Normal 1.00-4.00 [facility] Comment on above: Order Comment: Speci men Type: BLOOD SPECIMENOrdering Facility: [facility] Address: [address] [place] [address] Performed By: #### 5 7021-8 ####[facility] [id number] [place] [address] [place] Lymphocytes/100 WBC (Bld) 25.2 % Normal [facility] Comment on above: Order Comment: Speci men Type: BLOOD SPECIMENOrdering Facility: [facility] Address: [address] [place] [address] Performed By: #### 5 7021-8 ####[facility] [id number] [place] [address] [place] MCH (RBC) [Entitic mass] 27.8 pg Normal 26.0-34.0 [facility] Comment on above: Order Comment: Speci men Type: BLOOD SPECIMENOrdering Facility: [facility] Address: [address] [place] [address] Performed By: #### 5 7021-8 ####[facility] [id number] [place] [address] [place] MCHC (RBC) [Mass/Vol] 33.1 g/dL Normal 30.5-36.0 [facility] Comment on above: Order Comment: Speci men Type: BLOOD SPECIMENOrdering Facility: [facility] Address: [address] [place] [address] Performed By: #### 5 7021-8 ####[facility] [place] [id number] [place] [address] [place] MCV (RBC) [Entitic vol] 83.9 fL Normal 80.0-100.0 [facility] Comment on above: Order Comment: Speci men Type: BLOOD SPECIMENOrdering Facility: [facility] Address: [address] [place] [address] Performed By: #### 5 7021-8 ####[facility] [id number] [place] [address] [place] Monocytes (Bld) [#/Vol] 0.30 10*3/uL Normal <0.87 [facility] Comment on above: Order Comment: Speci men Type: BLOOD SPECIMENOrdering Facility: [facility] Address: [address] [place] [address] Performed By: #### 5 7021-8 ####[facility] [id number] [place] [address] [place] Monocytes/100 WBC (Bld) 3.2 % Normal [facility] Comment on above: Order Comment: Speci men Type: BLOOD SPECIMENOrdering Facility: [facility] Address: [address] [place] [address] Performed By: #### 5 7021-8 ####[facility] [id number] [place] [address] [place] Neutrophils (Bld) [#/Vol] 6.52 10*3/uL Normal 1.45-7.50 [facility] Comment on above: Order Comment: Speci men Type: BLOOD SPECIMENOrdering Facility: [facility] Address: [address] [place] [address] Performed By: #### 5 7021-8 ####[facility] [place] [id number] [place] [address] [place] Neutrophils/100 WBC (Bld) 70.6 % Normal [facility] Comment on above: Order Comment: Speci men Type: BLOOD SPECIMENOrdering Facility: [facility] Address: [address] [place] [address] Performed By: #### 5 7021-8 ####[facility] [place] [id number] [place] [address] [place] Nucleated RBC (Bld) [#/Vol] 10*3/uL Normal <0.01 [facility] Comment on above: Order Comment: Speci men Type: BLOOD SPECIMENOrdering Facility: [facility] Address: [address] [place] [address] Performed By: #### 5 7021-8 ####[facility] [id number] [place] [address] [place] Nucleated RBC/100 WBC (Bld) [Ratio] 0.0 /100 WBC Normal [facility] Comment on above: Order Comment: Speci men Type: BLOOD SPECIMENOrdering Facility: [facility] Address: [address] [place] [address] Performed By: #### 5 7021-8 ####[facility] [id number] [place] [address] [place] Platelet mean volume (Bld) [Entitic vol] 9.6 fL Normal 9.0-12.7 [facility] Comment on above: Order Comment: Speci men Type: BLOOD SPECIMENOrdering Facility: [facility] Address: [address] [place] [address] Performed By: #### 5 7021-8 ####[facility] [id number] [place] [address] [place] Platelets (Bld) [#/Vol] 292 10*3/uL Normal 150-400 [facility] Comment on above: Order Comment: Speci men Type: BLOOD SPECIMENOrdering Facility: [facility] Address: [address] [place] [address] Performed By: #### 5 7021-8 ####[facility] [id number] [place] [address] [place] RBC (Bld) [#/Vol] 3.60 10*6/uL Low 3.90-5.20 [facility] Comment on above: Order Comment: Speci men Type: BLOOD SPECIMENOrdering Facility: [facility] Address: [address] [place] [address] Performed By: #### 5 7021-8 ####[facility] [id number] [place] [address] [place] WBC (Bld) [#/Vol] 9.25 10*3/uL Normal 3.70-11.00 [facility] Comment on above: Order Comment: Speci men Type: BLOOD SPECIMENOrdering Facility: [facility] Address: [address] [place] [address] Performed By: #### 5 7021-8 ####[facility] [id number] [address] [place] [address] [place] CNOVSPon 11-20-2024 CNOVSP Visit (SP) Office (PALMED) ----- PUJA WYMAN ([id number]) 1970 F CHT Date Time Provider Department 11/20/24 9:30 AM LEODAN SEO PALMED During your visit today, we recorded the following information about you: Leodan Seo MD 11/20/2024 10:38 AM Signed PALLIATIVE MEDICINE PROGRESS NOTE SERVICE DATE: 11/20/2024 Subjective Primary Site of Disease/Medical Illness: Pancreas Site of Metastasis: CHIEF COMPLAINT: Pain PERTINENT MEDICAL HISTORY: 54 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 Diagnosed 10/03/2024. Started neoadjuvant chemotherapy 11/13/2024. PMH/PSH: Chronic back pain with right-sided sciatica s/p surgery x 2, peripheral neuropathy of right leg and left arm, insulin-dependent DM, bipolar disorder, HTN, emphysema, RLS. SH/FH: Lives in [place] with boyfriend. Has 3 daughters in [place]. Followed by palliative medicine since outpatient consultation 11/05/2024 for symptom management/palliative care. Interval History Last seen by me 11/05/2024 at which time we prescribed OxyContin 20 mg twice daily. She instead was started on morphine SR 30 mg twice daily due to insurance coverage. She started neoadjuvant intent gemcitabine and Abraxane 11/13/2024. Called our office yesterday noting that she does not feel the analgesics are adequately managing her pain. She has been taking the morphine SR twice daily as prescribed, and using oxycodone 10 mg 3-4 times per day. She notes pain decreases from 5/10 to 2-3/10 with use of oxycodone, but is worried to use more for fear of overdose. Per PDMP, she last filled oxycodone 5 mg tablets #180 on 11/01/2024 and filled morphine SR 30 mg tablets #28 on 11/07/2024. She states she has been tolerating morphine SR without any side effects. She notes uncontrolled pain leads to anxiety/panic which then further exacerbates her pain. States she is used to a baseline of 7/10 pain chronically due to spondylosis and peripheral neuropathy. When pain exceeds that, it starts to impact her daily functioning and mood. Following her first infusion of chemotherapy 11/13/2024, she experienced a few days of severe nausea with vomiting and loose BMs/diarrhea. Appetite has been poor also due to taste abnormalities and dry mouth. She has bought Biotene, and her PCP has prescribed nutritional shakes to use also. Modified ESAS ([place] Symptom Assessment Scale) Information Provided By: Patient Pain: Moderate Nausea: None Loss of Appetite: Moderate Constipation: None Shortness of Breath: Not asked Drowsiness: None Tiredness: Not asked Depression: Not asked Anxiety: Moderate How you feel overall: Fair Objective ECOG PERFORMANCE STATUS: 1- Restricted in physically strenuous activity. Carries out light duty. PHYSICAL EXAMINATION: Vital signs: LMP (LMP Unknown) Last 1 Encounter Temp Readings: Date: Temp: Temp Src: 11/20/2024 36.8 ?C (98.3 ?F) Oral Last 1 Encounter Resp Readings: Date: Resp: 11/20/2024 18 Last 1 Encounter Pulse Readings: Date: Pulse: 11/20/2024 90 Last 1 Encounter BP Readings: Date: BP: 11/20/2024 116/76 General Appearance: No apparent distress Skin: No rash Eyes: Normal HENT: Atraumatic Neck: Grossly normal Lungs: Unlabored CV: Not examined Abdomen: Nondistended : Not examined Musculoskeletal: No gross deformity Lymphatics: Not examined Neuro: Delirium absent Psych: Affect congruent with mood DATA: Diagnostic tests reviewed for today's visit: Most recent labs and imaging results. Estimated Creatinine Clearance: 88 mL/min (A) (based on SCr of 0.56 mg/dL (L)). Opioid Management: Yes Indication for Opioid Prescribing: Cancer related pain ORT-OUD Score: Will review at a future visit Informed consent for chronic opiate therapy obtained and written pain agreement: Will complete at future visit Naloxone offered?: Previously prescribed Course of treatment, patient's response and adherence to the prescribed treatment plan reviewed, including non-pharmacological and non-opioid treatment modalities? Yes Have any complications or exacerbations of the underlying condition causing the pain been reviewed? Yes How much does pain impede patient?s ability to engage in work or other purposeful activities, interfere with your activities of daily living, physical activity, or quality of your family life and social activities? Significantly Aberrancies in pain panel? Pending Any aberrant drug related behaviors since last visit? No Rationale for continuing opioid treatment: Improved comfort and function based on an ongoing functional assessment Benefits of Opioid Therapy outweigh risks: Yes Prescribed Morphine Equivalent Daily Dose (MEDD): > 50 MEDD, I am certified in Hospice and Palliative Care OARRS Checked: PDMP website checked and validated. All prescriptions have been APPROPRIATELY filled. No suspicious act (more content not included)... [facility] (HEMCA3[facility] ----- PUJA WYMAN ([id number]) 1970 F CHT Date Time Provider Department 11/20/24 [facility]Z [facility] During your visit today, we recorded the following information about you: Nandini De La Paz RN 11/20/2024 3:06 PM Signed CYCLE 1/DAY 1 POST TREATMENT CALL Today's date: November 20, 2024 Treatment Regimen: Gemcitabine/ Abraxane C1D1 Date: 11/13/24 Called patient to follow-up on symptom management. Spoke with Puja. Hair loss with C1D1, got a wig from [facility]. Getting connected with [employer], looking forward to this. SYMPTOM ASSESSMENT Neuro: Headache x1 day (dosed Tylenol without relief) Visual Changes photosensitivity and left eye felt swollen/ sore (ice pack helped) x 2 days Mood changes increased anxiety CV/Resp: None GI/: Appetite: decreased appetite, forced self to eat small bites Nausea constant for 2 days, Vomiting: several times per day 3 days (Zofran with mild relief) Diarrhea: yes, 1 episode with incontinence. Last BM yesterday, formed Integument: None Activity: Patient reported decreased energy level Pain: No=0 (pain 0 on a scale of 0-10). Fever: Yes 99.9 F, x days. Gradually improved. Chills: Yes Any new referrals needed? No Reinforced CURRENT treatment education based on current and anticipated symptoms. Discussed port/line care and patient verbalizes understanding: Not Applicable Patient instructed to contact office or after hours Hematology/Oncology fellow for: temperature >= 100.4; questions or concerns. Patient verbalized understanding of when to seek medical attention and after hours number protocol. Nandini De La Paz RN Allergies As of Date: 11/20/2024 Noted Allergy Reaction SOAP 04/22/2020 4 - Hives Comments: Bubble bath Date Reviewed: 11/20/2024 Reviewed by: Shakira John RN - Fully Assessed Reason for Visit: Care Coordination [4945] Appointment [186] Prescriptions as of 11/20/2024 - morphine SR (MS CONTIN) 30 mg 12 hr tablet Take 1 tablet by mouth two times a day for 14 days. - morphine SR (MS CONTIN) 15 mg 12 hr tablet Take 1 tablet by mouth two times a day for 14 days. Total dose of 45 mg twice daily. - oxyCODONE IR (ROXICODONE) 5 mg immediate release tablet Take 2 tablets by mouth every 4 hours as needed for pain for up to 30 days. - naloxone 4 mg/actuation nasal spray (NARCAN) Use 1 spray in one nostril as needed for overdose. May repeat every 2 to 3 min in alternating nostrils until medical assistance is available - Senna 8.6 mg tab Take 8.6 mg by mouth two times a day. 2 tabs - gabapentin (NEURONTIN) 300 mg capsule Take 300 mg by mouth three times a day. 2 caps - busPIRone (BUSPAR) 10 mg tablet Take 10 mg by mouth two times a day. - cyclobenzaprine (FLEXERIL) 5 mg tablet Take 5 mg by mouth two times a day as needed for muscle spasm. - lisinopril (ZESTRIL) 10 mg tablet Take 10 mg by mouth once daily. - ondansetron (ZOFRAN) 4 mg tablet Take 4 mg by mouth every 8 hours as needed. - insulin glargine,hum.rec.anlog (LANTUS SUBCUTANEOUS) Inject 22 Units subcutaneously daily at bedtime. - insulin lispro (HUMALOG PEN SUBCUTANEOUS) Inject 14 Units subcutaneously three times a day with meals. - prochlorperazine (COMPAZINE) 10 mg tablet Take 1 tablet by mouth every 6 hours as needed. - ondansetron (ZOFRAN) 8 mg tablet Take 1 tablet by mouth every 8 hours as needed for nausea/vomiting. - metoprolol tartrate, short acting, (LOPRESSOR) 50 mg tablet Take 50 mg by mouth twice daily. - omeprazole (PRILOSEC) 20 mg capsule take 1 capsule by mouth twice a day , 30 MINUTES BEFORE MORNING MEAL, NEEDED - potassium chloride 20 mEq TbER Take 1 tablet by mouth twice daily. - rOPINIRole (REQUIP) 1 mg tablet Take 1 mg by mouth. Problem List As Of Date 11/20/2024 Noted Resolved Cancer of pancreas, tail (HCC) [C25.2] 11/01/2024 Encounter Status:Closed by NANDINI DE LA PAZ on 11/20/24 Normal [facility] Comprehensive metabolic 2000 panelon 11-20-2024 Albumin [Mass/Vol] 3.8 g/dL Low 3.9-4.9 [facility] Comment on above: Order Comment: Speci men Type: BLOOD SPECIMENOrdering Facility: [facility] Address: [address] [place] [address] Performed By: #### 2 4323-8 ####[facility] [id number] [place] [address] [place] ALP [Catalytic activity/Vol] 120 U/L Normal 34-123 [facility] Comment on above: Order Comment: Speci men Type: BLOOD SPECIMENOrdering Facility: [facility] Address: [address] [place] [address] Performed By: #### 2 4323-8 ####[facility] [id number] [place] [address] [place] ALT [Catalytic activity/Vol] 14 U/L Normal 7-38 [facility] Comment on above: Order Comment: Speci men Type: BLOOD SPECIMENOrdering Facility: [facility] Address: [address] [place] [address] Result Comment: Resu lts may be falsely increased due to interference from hemolysis. Suggest reorder as clinically indicated. Performed By: #### 2 4323-8 ####[facility] [id number] [place] [address] [place] Anion gap [Moles/Vol] 13 mmol/L Normal 8-15 [facility] Comment on above: Order Comment: Speci men Type: BLOOD SPECIMENOrdering Facility: [facility] Address: [address] [place] [address] Performed By: #### 2 4323-8 ####[facility] [id number] [place] [address] [place] AST [Catalytic activity/Vol] 19 U/L Normal 13-35 [facility] Comment on above: Order Comment: Speci men Type: BLOOD SPECIMENOrdering Facility: [facility] Address: [address] [place] [address] Result Comment: Resu lts may be falsely increased due to interference from hemolysis. Suggest reorder as clinically indicated. Performed By: #### 2 4323-8 ####[facility] [id number] [place] [address] [place] Bilirubin [Mass/Vol] mg/dL Low 0.2-1.3 [facility] Comment on above: Order Comment: Speci men Type: BLOOD SPECIMENOrdering Facility: [facility] Address: [address] [place] [address] Performed By: #### 2 4323-8 ####[facility] [id number] [place] [address] [place] Calcium [Mass/Vol] 8.8 mg/dL Normal 8.5-10.2 [facility] Comment on above: Order Comment: Speci men Type: BLOOD SPECIMENOrdering Facility: [facility] Address: [address] [place] [address] Performed By: #### 2 4323-8 ####[facility] [id number] [place] [address] [place] Chloride [Moles/Vol] 97 mmol/L Low 98-107 [facility] Comment on above: Order Comment: Speci men Type: BLOOD SPECIMENOrdering Facility: [facility] Address: [address] [place] [address] Performed By: #### 2 4323-8 ####[facility] [id number] [place] [address] [place] CO2 [Moles/Vol] 22 mmol/L Normal 22-30 [facility] Comment on above: Order Comment: Speci men Type: BLOOD SPECIMENOrdering Facility: [facility] Address: [address] [place] [address] Performed By: #### 2 4323-8 ####[facility] [id number] [place] [address] [place] Creatinine [Mass/Vol] 0.56 mg/dL Low 0.58-0.96 [facility] Comment on above: Order Comment: Speci men Type: BLOOD SPECIMENOrdering Facility: [facility] Address: [address] [place] [address] Performed By: #### 2 4323-8 ####[facility] [id number] [place] [address] [place] eGFRcr SerPlBld CKD-EPI 2020 108 mL/min/1.73m??? Normal >=60 [facility] Comment on above: Order Comment: Speci men Type: BLOOD SPECIMENOrdering Facility: [facility] Address: [address] [place] [address] Result Comment: Niki mated Glomerular Filtration Rate (eGFR) is calculated using the 2020 CKD-EPI creatinine equation. This equation utilizes serum creatinine, sex, and age as parameters. The creatinine assay has traceable calibration to isotope dilution-mass spectrometry. Refer to KDIGO guidelines for clinical interpretation. In patients with unstable renal function, e.g. those with acute kidney injury, the eGFR may not accurately reflect actual GFR. Performed By: #### 2 4323-8 ####[facility] [id number] [place] [address] [place] Glucose [Mass/Vol] 275 mg/dL High 74-99 [facility] Comment on above: Order Comment: Speci men Type: BLOOD SPECIMENOrdering Facility: [facility] Address: [address] [place] [address] Result Comment: The [place] Diabetes Association (ADA) provides guidance for cutoff values for fasting glucose and random glucose. The ADA defines fasting as no caloric intake for at least 8 hours. Fasting plasma glucose results between 100 to 125 mg/dL indicate increased risk for diabetes (prediabetes). Fasting plasma glucose results greater than or equal to 126 mg/dL meet the criteria for diagnosis of diabetes. In the absence of unequivocal hyperglycemia, results should be confirmed by repeat testing. In a patient with classic symptoms of hyperglycemia or hyperglycemic crisis, random plasma glucose results greater than or equal to 200 mg/dL meet the criteria for diagnosis of diabetes. Reference: Standards of Medical Care in Diabetes 2016, [place] Diabetes Association. Diabetes Care. 2016.39(Suppl 1). Performed By: #### 2 4323-8 ####[facility] [id number] [place] [address] [place] Potassium [Moles/Vol] 5.1 mmol/L Normal 3.7-5.1 [facility] Comment on above: Order Comment: Speci men Type: BLOOD SPECIMENOrdering Facility: [facility] Address: [address] [place] [address] Performed By: #### 2 4323-8 ####[facility] [id number] [place] [address] [place] Protein [Mass/Vol] 6.9 g/dL Normal 6.3-8.0 [facility] Comment on above: Order Comment: Speci men Type: BLOOD SPECIMENOrdering Facility: [facility] Address: [address] [place] [address] Performed By: #### 2 4323-8 ####[facility] [id number] [address] [place] Sodium [Moles/Vol] 132 mmol/L Low 136-144 [facility] Comment on above: Order Comment: Speci men Type: BLOOD SPECIMENOrdering Facility: [facility] Address: [address] [place] [address] Performed By: #### 2 4323-8 ####[facility] [id number] [address] [place] Urea nitrogen [Mass/Vol] 18 mg/dL Normal 7-21 [facility] Comment on above: Order Comment: Speci men Type: BLOOD SPECIMENOrdering Facility: [facility] Address: [address] [place] [address] Performed By: #### 2 4323-8 ####[facility] [id number] [address] OF [facility] CNPAfua 11-19-2024 CNPN Telephone (HEMAMN) ----- PUJA WYMAN ([id number]) 1970 F T Date Time Provider Department 11/19/24 ANASTASIA KING During your visit today, we recorded the following information about you: Anastasia King, RN 11/19/2024 4:28 PM Signed Care Coordination Triage Note [facility] [place] Situation: Patient reports: uncontrolled pain x 3 days. Background: Pancreas cancer. Chemotherapy. Next round tomorrow 11/20 Assessment: Puja calls into office, tearful. She does not think that her pain medication is working. Morphine 30 ER twice daily. Oxycodone 10 mg 3-4 doses per day. She states that she is afraid to take it more frequently because she is alone and there is no one there to administer narcan if she overdoses. Of note, she states that her pain is a 5/10 when she takes the oxycodone and it goes down to a 2-3. Her pain currently at a 10/10 because she hasn't had oxy since this AM (had a doctor appointment.) She has 3 morphine ER left Office will schedule her with [employer] tomorrow while in treatment. Recommendations: Patient directed to: Manage at home. Instructions provided. Anastasia King RN November 19, 2024 4:22 PM Anastasia King RN 11/19/2024 4:57 PM Signed Called and spoke with Puja. Advised using her oxycodone more frequently tonight to get her pain under control. Assured her that she would not overdose if taking her medication as prescribed. Discussed that she might have to take 2 consecutive doses and one overnight to keep her pain managed. She verbalized understanding. Puja admitted that as her pain worsens, her anxiety worsens and then she starts crying - which makes her pain worse. She was appreciative of the assistance. Allergies As of Date: 11/19/2024 Noted Allergy Reaction SOAP 04/22/2020 4 - Hives Comments: Bubble bath Date Reviewed: 11/13/2024 Reviewed by: James Plasencia, [place] - Fully Assessed Reason for Visit: Symptom Management [918] Care Coordination [7271] Cmt: Pain See in treatment tomorrow Prescriptions as of 11/19/2024 - morphine SR (MS CONTIN) 30 mg 12 hr tablet Take 1 tablet by mouth two times a day for 14 days. - oxyCODONE IR (ROXICODONE) 5 mg immediate release tablet Take 2 tablets by mouth every 4 hours as needed for pain for up to 30 days. - naloxone 4 mg/actuation nasal spray (NARCAN) Use 1 spray in one nostril as needed for overdose. May repeat every 2 to 3 min in alternating nostrils until medical assistance is available - Senna 8.6 mg tab Take 8.6 mg by mouth two times a day. 2 tabs - gabapentin (NEURONTIN) 300 mg capsule Take 300 mg by mouth three times a day. 2 caps - busPIRone (BUSPAR) 10 mg tablet Take 10 mg by mouth two times a day. - cyclobenzaprine (FLEXERIL) 5 mg tablet Take 5 mg by mouth two times a day as needed for muscle spasm. - lisinopril (ZESTRIL) 10 mg tablet Take 10 mg by mouth once daily. - ondansetron (ZOFRAN) 4 mg tablet Take 4 mg by mouth every 8 hours as needed. - insulin glargine,hum.rec.anlog (LANTUS SUBCUTANEOUS) Inject 22 Units subcutaneously daily at bedtime. - insulin lispro (HUMALOG PEN SUBCUTANEOUS) Inject 14 Units subcutaneously three times a day with meals. - prochlorperazine (COMPAZINE) 10 mg tablet Take 1 tablet by mouth every 6 hours as needed. - ondansetron (ZOFRAN) 8 mg tablet Take 1 tablet by mouth every 8 hours as needed for nausea/vomiting. - metoprolol tartrate, short acting, (LOPRESSOR) 50 mg tablet Take 50 mg by mouth twice daily. - omeprazole (PRILOSEC) 20 mg capsule take 1 capsule by mouth twice a day , 30 MINUTES BEFORE MORNING MEAL, NEEDED - potassium chloride 20 mEq TbER Take 1 tablet by mouth twice daily. - rOPINIRole (REQUIP) 1 mg tablet Take 1 mg by mouth. 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 Pt treatments is covered at 100%. Patient financial responsibility is $0 for each treatment in 2024.Called the patient to discuss navigator services, left a voicemail to return call. Allergies As of Date: 11/14/2024 Noted Allergy Reaction SOAP 04/22/2020 4 - Hives Comments: Bubble bath Date Reviewed: 11/13/2024 Reviewed by: James Plasencia, RN - Fully Assessed Reason for Visit: Benefits Investigation [4334] Prescriptions as of 11/14/2024 - morphine SR (MS CONTIN) 30 mg 12 hr tablet Take 1 tablet by mouth two times a day for 14 days. - oxyCODONE IR (ROXICODONE) 5 mg immediate release tablet Take 2 tablets by mouth every 4 hours as needed for pain for up to 30 days. - naloxone 4 mg/actuation nasal spray (NARCAN) Use 1 spray in one nostril as needed for overdose. May repeat every 2 to 3 min in alternating nostrils until medical assistance is available - Senna 8.6 mg tab Take 8.6 mg by mouth two times a day. 2 tabs - gabapentin (NEURONTIN) 300 mg capsule Take 300 mg by mouth three times a day. 2 caps - busPIRone (BUSPAR) 10 mg tablet Take 10 mg by mouth two times a day. - cyclobenzaprine (FLEXERIL) 5 mg tablet Take 5 mg by mouth two times a day as needed for muscle spasm. - lisinopril (ZESTRIL) 10 mg tablet Take 10 mg by mouth once daily. - ondansetron (ZOFRAN) 4 mg tablet Take 4 mg by mouth every 8 hours as needed. - insulin glargine,hum.rec.anlog (LANTUS SUBCUTANEOUS) Inject 22 Units subcutaneously daily at bedtime. - insulin lispro (HUMALOG PEN SUBCUTANEOUS) Inject 14 Units subcutaneously three times a day with meals. - prochlorperazine (COMPAZINE) 10 mg tablet Take 1 tablet by mouth every 6 hours as needed. - ondansetron (ZOFRAN) 8 mg tablet Take 1 tablet by mouth every 8 hours as needed for nausea/vomiting. - metoprolol tartrate, short acting, (LOPRESSOR) 50 mg tablet Take 50 mg by mouth twice daily. - omeprazole (PRILOSEC) 20 mg capsule take 1 capsule by mouth twice a day , 30 MINUTES BEFORE MORNING MEAL, NEEDED - potassium chloride 20 mEq TbER Take 1 tablet by mouth twice daily. - rOPINIRole (REQUIP) 1 mg tablet Take 1 mg by mouth. 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] 11/01/2024 Encounter Status:Closed by BONNIE YARBROUGH on 11/14/24 Normal [facility] CBC W Auto Differential pane l (Bld)on 11-13-2024 Basophils (Bld) [#/Vol] 0.05 10*3/uL [facility] Basophils/100 WBC (Bld) 0.5 % [facility] Differential cell count method Nom (Bld) Auto [facility] Eosinophils (Bld) [#/Vol] 0.29 10*3/uL [facility] Eosinophils/100 WBC (Bld) 2.8 % [facility] Erythrocyte distribution width (RBC) [Ratio] 13.2 % 11.5 - 15.0 % [facility] Hematocrit (Bld) [Volume fraction] 35.5 % Low 36.0 - 46.0 % [facility] Hemoglobin (Bld) [Mass/Vol] 10.9 g/dL Low 11.5 - 15.5 g/dL [facility] Immature granulocytes (Bld) [#/Vol] 0.03 10*3/uL [facility] Immature granulocytes/100 WBC (Bld) 0.3 % [facility] Interpretation and review of laboratory results Abnormal [facility] Lymphocytes (Bld) [#/Vol] 3.71 10*3/uL [facility] Lymphocytes/100 WBC (Bld) 35.4 % [facility] MCH (RBC) [Entitic mass] 27.3 pg 26.0 - 34.0 pg [facility] MCHC (RBC) [Mass/Vol] 30.7 g/dL 30.5 - 36.0 g/dL [facility] MCV (RBC) [Entitic vol] 88.8 fL 80.0 - 100.0 fL [facility] Monocytes (Bld) [#/Vol] 0.96 10*3/uL High NINF [facility] Monocytes/100 WBC (Bld) 9.2 % [facility] Neutrophils (Bld) [#/Vol] 5.43 10*3/uL [facility] Neutrophils/100 WBC (Bld) 51.8 % [facility] Nucleated RBC (Bld) [#/Vol] NINF [facility] Nucleated RBC/100 WBC (Bld) [Ratio] 0.0 % /100 WBC [facility] Platelet mean volume (Bld) [Entitic vol] 9.7 fL 9.0 - 12.7 fL [facility] Platelets (Bld) [#/Vol] 480 10*3/uL High [facility] RBC (Bld) [#/Vol] 4.00 10*6/uL 3.90 - 5.20 m/uL [facility] WBC (Bld) [#/Vol] 10.47 10*3/uL [facility] Basophils (Bld) [#/Vol] 0.05 10*3/uL Normal <0.11 [facility] Comment on above: Order Comment: Speci men Type: BLOOD SPECIMENOrdering Facility: [facility] Address: [address] [place] [address] Performed By: #### 5 7021-8 ####[facility] [id number] [place] [address] [place] Basophils/100 WBC (Bld) 0.5 % Normal [facility] Comment on above: Order Comment: Speci men Type: BLOOD SPECIMENOrdering Facility: [facility] Address: [address] [place] [address] Performed By: #### 5 7021-8 ####[facility] [id number] [place] [address] [place] Differential cell count method Nom (Bld) Auto Normal [facility] Comment on above: Order Comment: Speci men Type: BLOOD SPECIMENOrdering Facility: [facility] Address: [address] [place] [address] Performed By: #### 5 7021-8 ####[facility] [id number] [place] [address] [place] Eosinophils (Bld) [#/Vol] 0.29 10*3/uL Normal <0.46 [facility] Comment on above: Order Comment: Speci men Type: BLOOD SPECIMENOrdering Facility: [facility] Address: [address] [place] [address] Performed By: #### 5 7021-8 ####[facility] [place] [id number] [place] [address] [place] Eosinophils/100 WBC (Bld) 2.8 % Normal [facility] Comment on above: Order Comment: Speci men Type: BLOOD SPECIMENOrdering Facility: [facility] Address: [address] [place] [address] Performed By: #### 5 7021-8 ####[facility] [place] [id number] [place] [address] [place] Erythrocyte distribution width (RBC) [Ratio] 13.2 % Normal 11.5-15.0 [facility] Comment on above: Order Comment: Speci men Type: BLOOD SPECIMENOrdering Facility: [facility] Address: [address] [place] [address] Performed By: #### 5 7021-8 ####[facility] [id number] [place] [address] [place] Hematocrit (Bld) [Volume fraction] 35.5 % Low 36.0-46.0 [facility] Comment on above: Order Comment: Speci men Type: BLOOD SPECIMENOrdering Facility: [facility] Address: [address] [place] [address] Performed By: #### 5 7021-8 ####[facility] [place] [id number] [place] [address] [place] Hemoglobin (Bld) [Mass/Vol] 10.9 g/dL Low 11.5-15.5 [facility] Comment on above: Order Comment: Speci men Type: BLOOD SPECIMENOrdering Facility: [facility] Address: [address] [place] [address] Performed By: #### 5 7021-8 ####[facility] [id number] [place] [address] [place] Immature granulocytes (Bld) [#/Vol] 0.03 10*3/uL Normal <0.10 [facility] Comment on above: Order Comment: Speci men Type: BLOOD SPECIMENOrdering Facility: [facility] Address: [address] [place] [address] Performed By: #### 5 7021-8 ####[facility] [place] [id number] [place] [address] [place] Immature granulocytes/100 WBC (Bld) 0.3 % Normal [facility] Comment on above: Order Comment: Speci men Type: BLOOD SPECIMENOrdering Facility: [facility] Address: [address] [place] [address] Performed By: #### 5 7021-8 ####[facility] [id number] [place] [address] [place] Lymphocytes (Bld) [#/Vol] 3.71 10*3/uL Normal 1.00-4.00 [facility] Comment on above: Order Comment: Speci men Type: BLOOD SPECIMENOrdering Facility: [facility] Address: [address] [place] [address] Performed By: #### 5 7021-8 ####[facility] [place] [id number] [place] [address] [place] Lymphocytes/100 WBC (Bld) 35.4 % Normal [facility] Comment on above: Order Comment: Speci men Type: BLOOD SPECIMENOrdering Facility: [facility] Address: [address] [place] [address] Performed By: #### 5 7021-8 ####[facility] [id number] [place] [address] [place] MCH (RBC) [Entitic mass] 27.3 pg Normal 26.0-34.0 [facility] Comment on above: Order Comment: Speci men Type: BLOOD SPECIMENOrdering Facility: [facility] Address: [address] [place] [address] Performed By: #### 5 7021-8 ####[facility] [id number] [place] [address] [place] MCHC (RBC) [Mass/Vol] 30.7 g/dL Normal 30.5-36.0 [facility] Comment on above: Order Comment: Speci men Type: BLOOD SPECIMENOrdering Facility: [facility] Address: [address] [place] [address] Performed By: #### 5 7021-8 ####[facility] [place] [id number] [place] [address] [place] MCV (RBC) [Entitic vol] 88.8 fL Normal 80.0-100.0 [facility] Comment on above: Order Comment: Speci men Type: BLOOD SPECIMENOrdering Facility: [facility] Address: [address] [place] [address] Performed By: #### 5 7021-8 ####[facility] [place] [id number] [place] [address] [place] Monocytes (Bld) [#/Vol] 0.96 10*3/uL High <0.87 [facility] Comment on above: Order Comment: Speci men Type: BLOOD SPECIMENOrdering Facility: [facility] Address: [address] [place] [address] Performed By: #### 5 7021-8 ####[facility] [id number] [place] [address] [place] Monocytes/100 WBC (Bld) 9.2 % Normal [facility] Comment on above: Order Comment: Speci men Type: BLOOD SPECIMENOrdering Facility: [facility] Address: [address] [place] [address] Performed By: #### 5 7021-8 ####[facility] [id number] [place] [address] [place] Neutrophils (Bld) [#/Vol] 5.43 10*3/uL Normal 1.45-7.50 [facility] Comment on above: Order Comment: Speci men Type: BLOOD SPECIMENOrdering Facility: [facility] Address: [address] [place] [address] Performed By: #### 5 7021-8 ####[facility] [place] [id number] [place] [address] [place] Neutrophils/100 WBC (Bld) 51.8 % Normal [facility] Comment on above: Order Comment: Speci men Type: BLOOD SPECIMENOrdering Facility: [facility] Address: [address] [place] [address] Performed By: #### 5 7021-8 ####[facility] [place] [id number] [place] [address] [place] Nucleated RBC (Bld) [#/Vol] 10*3/uL Normal <0.01 [facility] Comment on above: Order Comment: Speci men Type: BLOOD SPECIMENOrdering Facility: [facility] Address: [address] [place] [address] Performed By: #### 5 7021-8 ####[facility] [place] [id number] [place] [address] [place] Nucleated RBC/100 WBC (Bld) [Ratio] 0.0 /100 WBC Normal [facility] Comment on above: Order Comment: Speci men Type: BLOOD SPECIMENOrdering Facility: [facility] Address: [address] [place] [address] Performed By: #### 5 7021-8 ####[facility] [id number] [place] [address] [place] Platelet mean volume (Bld) [Entitic vol] 9.7 fL Normal 9.0-12.7 [facility] Comment on above: Order Comment: Speci men Type: BLOOD SPECIMENOrdering Facility: [facility] Address: [address] [place] [address] Performed By: #### 5 7021-8 ####[facility] [id number] [place] [address] [place] Platelets (Bld) [#/Vol] 480 10*3/uL High 150-400 [facility] Comment on above: Order Comment: Speci men Type: BLOOD SPECIMENOrdering Facility: [facility] Address: [address] [place] [address] Performed By: #### 5 7021-8 ####[facility] [id number] [place] [address] [place] RBC (Bld) [#/Vol] 4.00 10*6/uL Normal 3.90-5.20 [facility] Comment on above: Order Comment: Speci men Type: BLOOD SPECIMENOrdering Facility: [facility] Address: [address] [place] [address] Performed By: #### 5 7021-8 ####[facility] [id number] [place] [address] [place] WBC (Bld) [#/Vol] 10.47 10*3/uL Normal 3.70-11.00 [facility] Comment on above: Order Comment: Speci men Type: BLOOD SPECIMENOrdering Facility: [facility] Address: [address] [place] [address] Performed By: #### 5 7021-8 ####[facility] [id number] [address] [address] [place] CNOVSPon 11-13-2024 CNOVSP Visit (SP) Office (HEMAMN) ----- PUJA WYMAN ([id number]) 1970 F CHT Date Time Provider Department 11/13/24 10:[address] 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 [facility] Surgery: Dr. Pena [facility] Palliative Medicine: Dr. Leodan Seo Current Plan Gemcitabine/Abraxane neoadjuvant 11/13/2024 Treatment History 11/13/24 - gemcitabine/abraxane neoadjuvant intent Molecular Profile - refer genetic counseling for BRCA testing - [id number] ctDNA (FNA pancreas biopsy will not be feasible for somatic testing) Oncology History Cancer of pancreas, tail (HCC) 09/2024 Initial Diagnosis Cancer of pancreas, tail (HCC) 10/03/2024 MRI Abdo 1. Complex solid cystic lesion involving the pancreatic body/tail, measuring at least 5.8 x 4.8 x 5.8 cm, demonstrating thick irregular peripheral enhancement as well as irregular internal septal enhancement. Precise relationship to pancreatic duct is difficult to discern. No pancreatic ductal dilatation. This lesion abuts portions of the lesser curvature of the proximal stomach, as as well as the medial spleen, and left adrenal gland. Lesion may reflect cystic neoplasm or necrotic adenocarcinoma. Recommend correlation with FNA results. 2. Portions of the splenic artery and splenic vein are obscured by complex solid cystic lesion. Visualized portions appear patent. Motion artifact limits evaluation to some extent. 3. No suspicious liver lesions. 4. A few prominent peripancreatic lymph nodes without bulky adenopathy. 5. Pancreatic perilesional stranding/fluid localized to the left upper quadrant with trace perisplenic ascites 10/16/2024 CT CAP 1. 5.5 cm solid pancreatic mass. This demonstrates some necrosis. The mass is seen to impress mildly on the posterior wall of the stomach. 2. No hepatic or pancreatic ductal dilatation. 3. Bilateral renal cysts. These require no further imaging. 1. A few punctate pulmonary nodules right upper lobe measuring up to 3 mm. Fleischner Society Guidelines for low-risk or high-risk patients recommend that one should consider chest CT at 12 months due to the morphology and/or location of this nodule. 2. Mild emphysema most pronounced towards the apices where there is pleural parenchymal scarring. No consolidation or pleural effusions. No pneumothorax. 3. Partial visualization of heterogeneous pancreatic lesion. 10/03/2024 Pathology [facility] - Pancreas, Tail - Fine Needle Aspirate: POSITIVE FOR MALIGNANT CELLS. Adenocarcinoma. 11/08/2024 - Chemotherapy Treatment goal 1. 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 She is scheduled to start systemic chemotherapy with gemcitabine and Abraxane with neoadjuvant intent. Recent blood tests showed WBC 10.47 x 109/L, hematocrit 35.5%, and platelets 480 x 109/L. CMP revealed sodium 134 mmol/L, creatinine 0.75 mg/dL, BUN 36 mg/dL, total bilirubin <0.2 mg/dL, ALP 126 U/L, ALT 8 U/L, and AST 10 U/L. She was noted to be hypotensive with orthostatic hypotension and an elevated PVI-bk-mtxfdrrrps ratio of >20, suggesting hypovolemia. Patient reports experiencing dizziness upon standing, which began today. She denies having a port and expresses interest in having one placed. She notes significant improvement in pain management with morphine, leading to better sleep and increased energy. She also reports improvement in bowel movements, having gone twice since her recent hospital discharge approximately two weeks ago, though she mentions one episode of incontinence. She is actively working on maintaining hydration, carryin (more content not included)... Normal [facility] Cancer Ag19-9 SerPl-aCncon 0 11-13-2024 Cancer Ag 19-9 Qn 645.0 [arb'U]/mL High <36.0 C [facility] Comment on above: Order Comment: Speci men Type: BLOOD SPECIMENOrdering Facility: [facility] Address: [address] [place] [address] Result Comment: [facility] [place] er antigen 19-9 test is used as an aid in monitoring response to treatment or recurrence in patients with established pancreatic, hepatobiliary, or gastrointestinal malignancies. Clinical correlation is required. The CA 19-9 Antigen test was performed using the [employer] [place] [employer] DXI paramagnetic particle chemiluminescent immunoassay method. Results obtained with different assay methods or kits cannot be used interchangeably. Performed By: #### 2 4108-3 ####[facility] LABCLIA [id number] [place] [address] [place] Comprehensive metabolic 2000 panelon 11-13-2024 Albumin [Mass/Vol] 3.5 g/dL Low 3.9 - 4.9 g/dL [facility] ALP [Catalytic activity/Vol] 126 U/L High 34 - 123 U/L [facility] ALT [Catalytic activity/Vol] 8 U/L 7 - 38 U/L [facility] Anion gap [Moles/Vol] 14 mmol/L 8 - 15 mmol/L [facility] AST [Catalytic activity/Vol] 10 U/L Low 13 - 35 U/L [facility] Bilirubin [Mass/Vol] mg/dL Low 0.2 - 1 .3 mg/dL [facility] Calcium [Mass/Vol] 9.4 mg/dL 8.5 - 10. 2 mg/dL [facility] Chloride [Moles/Vol] 100 mmol/L 98 - 10 7 mmol/L [facility] CO2 [Moles/Vol] 20 mmol/L Low 22 - 30 mmol/L [facility] Creatinine [Mass/Vol] 0.75 mg/dL 0.58 - 0.96 mg/dL [facility] GFR/1.73 sq M.predicted among non-blacks MDRD (S/P/Bld) [Vol rate/Area] 94 mL/min/{1.73_m2} - PINF [facility] Comment on above: Estimated Glomerular Filtration Rate (eGFR) is calculated using the 2020 CKD-EPI creatinine equation. This equation utilizes serum creatinine, sex, and age as parameters. The creatinine assay has traceable calibration to isotope dilution-mass spectrometry. Refer to KDIGO guidelines for clinical interpretation. In patients with unstable renal function, e.g. those with acute kidney injury, the eGFR may not accurately reflect actual GFR. Glucose [Mass/Vol] 112 mg/dL High 74 - 99 mg/dL [facility] Comment on above: The [place] Diabete s Association (ADA) provides guidance for cutoff values for fasting glucose and random glucose. The ADA defines fasting as no caloric intake for at least 8 hours. Fasting plasma glucose results between 100 to 125 mg/dL indicate increased risk for diabetes (prediabetes). Fasting plasma glucose results greater than or equal to 126 mg/dL meet the criteria for diagnosis of diabetes. In the absence of unequivocal hyperglycemia, results should be confirmed by repeat testing. In a patient with classic symptoms of hyperglycemia or hyperglycemic crisis, random plasma glucose results greater than or equal to 200 mg/dL meet the criteria for diagnosis of diabetes. Reference: Standards of Medical Care in Diabetes 2016, [place] Diabetes Association. Diabetes Care. 2016.39(Suppl 1). Interpretation and review of laboratory results Abnormal [facility] Potassium [Moles/Vol] 4.8 mmol/L 3.7 - 5.1 mmol/L [facility] Protein [Mass/Vol] 7.1 g/dL 6.3 - 8.0 g/dL [facility] Sodium [Moles/Vol] 134 mmol/L Low 136 - 144 mmol/L [facility] Urea nitrogen [Mass/Vol] 36 mg/dL High 7 - 21 mg/dL [facility] Albumin [Mass/Vol] 3.5 g/dL Low 3.9-4.9 [facility] Comment on above: Order Comment: Speci men Type: BLOOD SPECIMENOrdering Facility: [facility] Address: [address] [place] [address] Performed By: #### 2 4323-8 ####[facility] [id number] [place] [address] [place] ALP [Catalytic activity/Vol] 126 U/L High 34-123 [facility] Comment on above: Order Comment: Speci men Type: BLOOD SPECIMENOrdering Facility: [facility] Address: [address] [place] [address] Performed By: #### 2 4323-8 ####[facility] [id number] [place] [address] [place] ALT [Catalytic activity/Vol] 8 U/L Normal 7-38 [facility] Comment on above: Order Comment: Speci men Type: BLOOD SPECIMENOrdering Facility: [facility] Address: [address] [place] [address] Performed By: #### 2 4323-8 ####[facility] [id number] [place] [address] [place] Anion gap [Moles/Vol] 14 mmol/L Normal 8-15 [facility] Comment on above: Order Comment: Speci men Type: BLOOD SPECIMENOrdering Facility: [facility] Address: [address] [place] [address] Performed By: #### 2 4323-8 ####[facility] [id number] [place] [address] [place] AST [Catalytic activity/Vol] 10 U/L Low 13-35 [facility] Comment on above: Order Comment: Speci men Type: BLOOD SPECIMENOrdering Facility: [facility] Address: [address] [place] [address] Performed By: #### 2 4323-8 ####[facility] [id number] [place] [address] [place] Bilirubin [Mass/Vol] mg/dL Low 0.2-1.3 [facility] Comment on above: Order Comment: Speci men Type: BLOOD SPECIMENOrdering Facility: [facility] Address: [address] [place] [address] Performed By: #### 2 4323-8 ####[facility] [id number] [place] [address] [place] Calcium [Mass/Vol] 9.4 mg/dL Normal 8.5-10.2 [facility] Comment on above: Order Comment: Speci men Type: BLOOD SPECIMENOrdering Facility: [facility] Address: [address] [place] [address] Performed By: #### 2 4323-8 ####[facility] [id number] [place] [address] [place] Chloride [Moles/Vol] 100 mmol/L Normal 98-107 [facility] Comment on above: Order Comment: Speci men Type: BLOOD SPECIMENOrdering Facility: [facility] Address: [address] [place] [address] Performed By: #### 2 4323-8 ####[facility] [id number] [place] [address] [place] CO2 [Moles/Vol] 20 mmol/L Low 22-30 [facility] Comment on above: Order Comment: Speci men Type: BLOOD SPECIMENOrdering Facility: [facility] Address: [address] [place] [address] Performed By: #### 2 4323-8 ####[facility] [id number] [place] [address] [place] Creatinine [Mass/Vol] 0.75 mg/dL Normal 0.58-0.96 [facility] Comment on above: Order Comment: Speci men Type: BLOOD SPECIMENOrdering Facility: [facility] Address: [address] [place] [address] Performed By: #### 2 4323-8 ####[facility] [id number] [place] [address] [place] eGFRcr SerPlBld CKD-EPI 2020 94 mL/min/1.73m??? Normal >=60 [facility] Comment on above: Order Comment: Rivka andria Type: BLOOD SPECIMENOrdering Facility: [facility] Address: [address] [place] [address] Result Comment: Niki mated Glomerular Filtration Rate (eGFR) is calculated using the 2020 CKD-EPI creatinine equation. This equation utilizes serum creatinine, sex, and age as parameters. The creatinine assay has traceable calibration to isotope dilution-mass spectrometry. Refer to KDIGO guidelines for clinical interpretation. In patients with unstable renal function, e.g. those with acute kidney injury, the eGFR may not accurately reflect actual GFR. Performed By: #### 2 4323-8 ####[facility] [id number] [place] [address] [place] Glucose [Mass/Vol] 112 mg/dL High 74-99 [facility] Comment on above: Order Comment: Rivka ayers Type: BLOOD SPECIMENOrdering Facility: [facility] Address: [address] [place] [address] Result Comment: The [place] Diabetes Association (ADA) provides guidance for cutoff values for fasting glucose and random glucose. The ADA defines fasting as no caloric intake for at least 8 hours. Fasting plasma glucose results between 100 to 125 mg/dL indicate increased risk for diabetes (prediabetes). Fasting plasma glucose results greater than or equal to 126 mg/dL meet the criteria for diagnosis of diabetes. In the absence of unequivocal hyperglycemia, results should be confirmed by repeat testing. In a patient with classic symptoms of hyperglycemia or hyperglycemic crisis, random plasma glucose results greater than or equal to 200 mg/dL meet the criteria for diagnosis of diabetes. Reference: Standards of Medical Care in Diabetes 2016, [place] Diabetes Association. Diabetes Care. 2016.39(Suppl 1). Performed By: #### 2 4323-8 ####[facility] [id number] [place] [address] [place] Potassium [Moles/Vol] 4.8 mmol/L Normal 3.7-5.1 [facility] Comment on above: Order Comment: Speci men Type: BLOOD SPECIMENOrdering Facility: [facility] Address: [address] [place] [address] Performed By: #### 2 4323-8 ####[facility] [id number] [place] [address] [place] Protein [Mass/Vol] 7.1 g/dL Normal 6.3-8.0 [facility] Comment on above: Order Comment: Speci men Type: BLOOD SPECIMENOrdering Facility: [facility] Address: [address] [place] [address] Performed By: #### 2 4323-8 ####[facility] [id number] [place] [address] [place] Sodium [Moles/Vol] 134 mmol/L Low 136-144 [facility] Comment on above: Order Comment: Speci men Type: BLOOD SPECIMENOrdering Facility: [facility] Address: [address] [place] [address] Performed By: #### 2 4323-8 ####[facility] [id number] [place] [address] [place] Urea nitrogen [Mass/Vol] 36 mg/dL High 7-21 [facility] Comment on above: Order Comment: Speci men Type: BLOOD SPECIMENOrdering Facility: [facility] Address: [address] [place] [address] Performed By: #### 2 4323-8 ####[facility] [id number] [place] [address] [place] MISC SEND OUT TST 1on 2024 MISC SCAN TEST RESULTS 1 Normal [facility] Comment on above: Order Comment: Rivka ayers Type: BLOOD SPECIMENOrdering Facility: [facility] Address: [address] [place] [address] Result Comment: Linnette marx REFERRAL LAB 1 (DROP-DOWN) Normal [facility] Comment on above: Order Comment: Rivka ayers Type: BLOOD SPECIMENOrdering Facility: [facility] Address: [address] [place] [address] Result Comment: Linnette marx TEST 1 Normal [facility] Comment on above: Order Comment: Rivka ayers Type: BLOOD SPECIMENOrdering Facility: [facility] Address: [address] [place] [address] Result Comment: Linnette Velez 11-12-2024 CNPN Telephone (HEMCA3) ----- PUJA WYMAN ([id number]) 1970 F CHT Date Time Provider Department 11/12/24 NANDINI DE LA PAZ HEMCA3 During your visit today, we recorded the following information about you: Nandini De La Paz, RN 11/12/2024 1:53 PM Signed preCare Coordinator Pre Chemo Patient identified by name and date of . NO LVM Confirmed date and time for chemotherapy ? YES Other appointments (labs, imaging) discussed? YES Discussed where to park ([employer]), charge for parking YES Discussed where to report (building/floor) YES Any pre-medications ordered? NO Described the infusion room and what to expect. (What to wear, what to bring [iPad, books] amount of time treatment can take, meals and CC options for food) YES Note: dress comfortably, bring food and drink Discussed whether the patient can eat prior to labs and treatment. YES Who is driving you to and from treatment? LVM Discussed why it is important to bring someone with you. Yes, first time tx Resources discussed (music therapy, Art therapy, pet therapy, etc.) YES Education on chemotherapy (drug, side effects) discussed and that the patient will be receiving a C1D1 call within 7 days of treatment. YES Other topics discussed, interventions needed: office number provided for any questions prior to appts, relayed RNCC will meet with pt in tx room for formal chemo edu Nandini De La Paz RN Allergies As of Date: 11/12/2024 Noted Allergy Reaction SOAP 04/22/2020 4 - Hives Comments: Bubble bath Date Reviewed: 11/05/2024 Reviewed by: Celina Warner LPN - Fully Assessed Reason for Visit: Care Coordination [3491] Cmt: Pre chemo call Prescriptions as of 11/12/2024 - morphine SR (MS CONTIN) 30 mg 12 hr tablet Take 1 tablet by mouth two times a day for 14 days. - oxyCODONE IR (ROXICODONE) 5 mg immediate release tablet Take 2 tablets by mouth every 4 hours as needed for pain for up to 30 days. - naloxone 4 mg/actuation nasal spray (NARCAN) Use 1 spray in one nostril as needed for overdose. May repeat every 2 to 3 min in alternating nostrils until medical assistance is available - Senna 8.6 mg tab Take 8.6 mg by mouth two times a day. 2 tabs - gabapentin (NEURONTIN) 300 mg capsule Take 300 mg by mouth three times a day. 2 caps - busPIRone (BUSPAR) 10 mg tablet Take 10 mg by mouth two times a day. - cyclobenzaprine (FLEXERIL) 5 mg tablet Take 5 mg by mouth two times a day as needed for muscle spasm. - lisinopril (ZESTRIL) 10 mg tablet Take 10 mg by mouth once daily. - ondansetron (ZOFRAN) 4 mg tablet Take 4 mg by mouth every 8 hours as needed. - insulin glargine,hum.rec.anlog (LANTUS SUBCUTANEOUS) Inject 22 Units subcutaneously daily at bedtime. - insulin lispro (HUMALOG PEN SUBCUTANEOUS) Inject 14 Units subcutaneously three times a day with meals. - prochlorperazine (COMPAZINE) 10 mg tablet Take 1 tablet by mouth every 6 hours as needed. - ondansetron (ZOFRAN) 8 mg tablet Take 1 tablet by mouth every 8 hours as needed for nausea/vomiting. - metoprolol tartrate, short acting, (LOPRESSOR) 50 mg tablet Take 50 mg by mouth twice daily. - omeprazole (PRILOSEC) 20 mg capsule take 1 capsule by mouth twice a day , 30 MINUTES BEFORE MORNING MEAL, NEEDED - potassium chloride 20 mEq TbER Take 1 tablet by mouth twice daily. - rOPINIRole (REQUIP) 1 mg tablet Take 1 mg by mouth. Problem List As Of Date 11/12/2024 Noted Resolved Cancer of pancreas, tail (HCC) [C25.2] 11/01/2024 Encounter Status:Closed by NANDINI DE LA PAZ on 11/12/24 [facility] 11-07-2024 CNPN Telephone (HEMAMN) ----- PUJA WYMAN ([id number]) 1970 F T Date Time Provider Department 11/07/24 ANASTASIA KING During your visit today, we recorded the following information about you: Anastasia King RN 11/07/2024 9:58 AM Signed Palliative Medicine Care Coordination NEW PATIENT Telephone call Patient identified by name and date of . YES Spoke with: patient Nurse introduced self and role of Securities Consultant in Palliative Medicine. Office contact sheet provided with office and on-call phone numbers. Reviewed on-call process. Nurse educated patient on medication refill process. Nurse encouraged patient to call with any questions/concerns/sympto m related issues. All questions/concerns addressed: Yes Anastasia King RN Allergies As of Date: 11/07/2024 Noted Allergy Reaction SOAP 04/22/2020 4 - Hives Comments: Bubble bath Date Reviewed: 11/05/2024 Reviewed by: Celina Warner LPN - Fully Assessed Reason for Visit: encounter for palliative medicine [Other] Prescriptions as of 11/07/2024 - morphine SR (MS CONTIN) 30 mg 12 hr tablet Take 1 tablet by mouth two times a day for 14 days. - oxyCODONE IR (ROXICODONE) 5 mg immediate release tablet Take 2 tablets by mouth every 4 hours as needed for pain for up to 30 days. - naloxone 4 mg/actuation nasal spray (NARCAN) Use 1 spray in one nostril as needed for overdose. May repeat every 2 to 3 min in alternating nostrils until medical assistance is available - Senna 8.6 mg tab Take 8.6 mg by mouth two times a day. 2 tabs - gabapentin (NEURONTIN) 300 mg capsule Take 300 mg by mouth three times a day. 2 caps - busPIRone (BUSPAR) 10 mg tablet Take 10 mg by mouth two times a day. - cyclobenzaprine (FLEXERIL) 5 mg tablet Take 5 mg by mouth two times a day as needed for muscle spasm. - lisinopril (ZESTRIL) 10 mg tablet Take 10 mg by mouth once daily. - ondansetron (ZOFRAN) 4 mg tablet Take 4 mg by mouth every 8 hours as needed. - insulin glargine,hum.rec.anlog (LANTUS SUBCUTANEOUS) Inject 22 Units subcutaneously daily at bedtime. - insulin lispro (HUMALOG PEN SUBCUTANEOUS) Inject 14 Units subcutaneously three times a day with meals. - prochlorperazine (COMPAZINE) 10 mg tablet Take 1 tablet by mouth every 6 hours as needed. - ondansetron (ZOFRAN) 8 mg tablet Take 1 tablet by mouth every 8 hours as needed for nausea/vomiting. - metoprolol tartrate, short acting, (LOPRESSOR) 50 mg tablet Take 50 mg by mouth twice daily. - omeprazole (PRILOSEC) 20 mg capsule take 1 capsule by mouth twice a day , 30 MINUTES BEFORE MORNING MEAL, NEEDED - potassium chloride 20 mEq TbER Take 1 tablet by mouth twice daily. - rOPINIRole (REQUIP) 1 mg tablet Take 1 mg by mouth. Problem List As Of Date 11/07/2024 Noted Resolved Cancer of pancreas, tail (HCC) [C25.2] 11/01/2024 Encounter Status:Closed by ANASTASIA KING on 11/07/24 [facility] 11-06-2024 ANDI Telephone (HEMAMN) ----- PUJA WYMAN ([id number]) 1970 F T Date Time Provider Department 11/06/24 ANASTASIA KING During your visit today, we recorded the following information about you: Anastasia King RN 11/07/2024 11:16 AM Signed Received call from pharmacy requesting prior authorization/quantity override for the following medication: oxycontin 20mg (60/30.) Information sent to [facility] via [employer] ([place]: [id number]) Authorization Declined in favor of formulary alternative. Office will change the script to Morphine ER Reference # PA Patient called and notified. Allergies As of Date: 11/06/2024 Noted Allergy Reaction SOAP 04/22/2020 4 - Hives Comments: Bubble bath Date Reviewed: 11/05/2024 Reviewed by: Celina Warner LPN - Fully Assessed Reason for Visit: Insurance Authorization [[id number]] Cmt: Oxycontin 20mg (60/30) Prescriptions as of 11/07/2024 - morphine SR (MS CONTIN) 30 mg 12 hr tablet Take 1 tablet by mouth two times a day for 14 days. - oxyCODONE IR (ROXICODONE) 5 mg immediate release tablet Take 2 tablets by mouth every 4 hours as needed for pain for up to 30 days. - naloxone 4 mg/actuation nasal spray (NARCAN) Use 1 spray in one nostril as needed for overdose. May repeat every 2 to 3 min in alternating nostrils until medical assistance is available - Senna 8.6 mg tab Take 8.6 mg by mouth two times a day. 2 tabs - gabapentin (NEURONTIN) 300 mg capsule Take 300 mg by mouth three times a day. 2 caps - busPIRone (BUSPAR) 10 mg tablet Take 10 mg by mouth two times a day. - cyclobenzaprine (FLEXERIL) 5 mg tablet Take 5 mg by mouth two times a day as needed for muscle spasm. - lisinopril (ZESTRIL) 10 mg tablet Take 10 mg by mouth once daily. - ondansetron (ZOFRAN) 4 mg tablet Take 4 mg by mouth every 8 hours as needed. - insulin glargine,hum.rec.anlog (LANTUS SUBCUTANEOUS) Inject 22 Units subcutaneously daily at bedtime. - insulin lispro (HUMALOG PEN SUBCUTANEOUS) Inject 14 Units subcutaneously three times a day with meals. - prochlorperazine (COMPAZINE) 10 mg tablet Take 1 tablet by mouth every 6 hours as needed. - ondansetron (ZOFRAN) 8 mg tablet Take 1 tablet by mouth every 8 hours as needed for nausea/vomiting. - metoprolol tartrate, short acting, (LOPRESSOR) 50 mg tablet Take 50 mg by mouth twice daily. - omeprazole (PRILOSEC) 20 mg capsule take 1 capsule by mouth twice a day , 30 MINUTES BEFORE MORNING MEAL, NEEDED - potassium chloride 20 mEq TbER Take 1 tablet by mouth twice daily. - rOPINIRole (REQUIP) 1 mg tablet Take 1 mg by mouth. Problem List As Of Date 11/06/2024 Noted Resolved Cancer of pancreas, tail (HCC) [C25.2] 11/01/2024 Encounter Status:Closed by ANASTASIA KING on 11/07/24 [facility] Telephone (HEMAMN) ----- PUJA WYMAN ([id number]) 1970 F [facility] [place] Date Time Provider Department 11/06/24 ANASTASIA KING HEM During your visit today, we recorded the following information about you: Anastasia King RN 11/07/2024 11:15 AM Signed Received call from pharmacy requesting prior authorization/quantity override for the following medication: Morphine ER 30mg (.) Info sent to [facility] via [facility] ([place]: [id number]) Authorization effective today and good until 02/03/2025 Reference # MEAGHAN Pharmacy notified. Allergies As of Date: 11/06/2024 Noted Allergy Reaction SOAP 04/22/2020 4 - Hives Comments: Bubble bath Date Reviewed: 11/05/2024 Reviewed by: Celina Warner LPN - Fully Assessed Reason for Visit: Insurance Authorization [[id number]] Cmt: Morphine ER 30mg () Prescriptions as of 11/07/2024 - morphine SR (MS CONTIN) 30 mg 12 hr tablet Take 1 tablet by mouth two times a day for 14 days. - oxyCODONE IR (ROXICODONE) 5 mg immediate release tablet Take 2 tablets by mouth every 4 hours as needed for pain for up to 30 days. - naloxone 4 mg/actuation nasal spray (NARCAN) Use 1 spray in one nostril as needed for overdose. May repeat every 2 to 3 min in alternating nostrils until medical assistance is available - Senna 8.6 mg tab Take 8.6 mg by mouth two times a day. 2 tabs - gabapentin (NEURONTIN) 300 mg capsule Take 300 mg by mouth three times a day. 2 caps - busPIRone (BUSPAR) 10 mg tablet Take 10 mg by mouth two times a day. - cyclobenzaprine (FLEXERIL) 5 mg tablet Take 5 mg by mouth two times a day as needed for muscle spasm. - lisinopril (ZESTRIL) 10 mg tablet Take 10 mg by mouth once daily. - ondansetron (ZOFRAN) 4 mg tablet Take 4 mg by mouth every 8 hours as needed. - insulin glargine,hum.rec.anlog (LANTUS SUBCUTANEOUS) Inject 22 Units subcutaneously daily at bedtime. - insulin lispro (HUMALOG PEN SUBCUTANEOUS) Inject 14 Units subcutaneously three times a day with meals. - prochlorperazine (COMPAZINE) 10 mg tablet Take 1 tablet by mouth every 6 hours as needed. - ondansetron (ZOFRAN) 8 mg tablet Take 1 tablet by mouth every 8 hours as needed for nausea/vomiting. - metoprolol tartrate, short acting, (LOPRESSOR) 50 mg tablet Take 50 mg by mouth twice daily. - omeprazole (PRILOSEC) 20 mg capsule take 1 capsule by mouth twice a day , 30 MINUTES BEFORE MORNING MEAL, NEEDED - potassium chloride 20 mEq TbER Take 1 tablet by mouth twice daily. - rOPINIRole (REQUIP) 1 mg tablet Take 1 mg by mouth. Problem List As Of Date 11/06/2024 Noted Resolved Cancer of pancreas, tail (HCC) [C25.2] 11/01/2024 Encounter Status:Closed by ANASTASIA KING on 11/07/24 [facility] CNOVSPon 11-05-2024 CNOVSP Visit (SP) Office (PALMED) ----- PUJA WYMAN ([id number]) 1970 F T Date Time Provider Department 11/05/24 11:00 AM LEODAN SEO During your visit today, we recorded the following information about you: Temperature Pulse Respiration Blood pressure 97.1 degrees 97/minute 18/minute 118/73 Leodan Seo MD 11/05/2024 12:25 PM Signed PALLIATIVE MEDICINE INITIAL CONSULT SERVICE DATE: 11/05/2024 Referring Physician: She Marte Ma Primary Physician: No primary care provider on file. REASON FOR CONSULT: Pain management Subjective 54-year-old female with pancreatic tail adenocarcinoma. Diagnosed 10/03/2024. Starting neoadjuvant chemotherapy 11/13/2024. PMH/PSH: Chronic back pain with right-sided sciatica s/p surgery x 2, peripheral neuropathy of right leg and left arm, insulin-dependent DM, bipolar disorder, HTN, emphysema, RLS. SH/FH: Lives in [place] with boyfriend. Has 3 daughters in [place]. Followed by palliative medicine since outpatient consultation 11/05/2024 for symptom management/palliative care. She experiences left upper abdomen/lower chest pain over the past 1-2 months which has been increasing in frequency and intensity. It had initially been managed with oxycodone 5-10 mg every 4 hours on an as-needed basis. During her hospitalizations 09/2024, she was seen by [facility] for opioid management. Has not established with them outpatient though. Per PDMP, she most recently filled oxycodone 5 mg tablets #180 on 11/01/2024 with instructions to take 10 mg every 4 hours as needed. She has been taking 10 mg 4-6 times a day on a consistent basis. Experiencing partial relief for pain, without significant side effects. She has been managing constipation with senna 1 tablet twice daily, MiraLAX 1 capful per day, and Dulcolax suppository on an as-needed basis (uses this about every 3 days). She has been managing at home independently, though has needed a 4 point cane for steadiness. Appetite has been low. She has been trying to supplement with nutritional shakes. She will begin cancer directed therapy 11/13/2024 here at [facility]. She is considering a transition to oncologic care locally. PAST MEDICAL HISTORY: Chronic low back pain with right-sided sciatica, IDDM, bipolar disorder, HTN, emphysema PAST SURGICAL HISTORY: Back surgery x 2 CURRENT MEDICATIONS: oxyCODONE IR (ROXICODONE) 5 mg immediate release tablet Take 2 tablets by mouth every 4 hours as needed for pain for up to 30 days. naloxone 4 mg/actuation nasal spray (NARCAN) Use 1 spray in one nostril as needed for overdose. May repeat every 2 to 3 min in alternating nostrils until medical assistance is available Senna 8.6 mg tab Take 8.6 mg by mouth two times a day. 2 tabs gabapentin (NEURONTIN) 300 mg capsule Take 300 mg by mouth three times a day. 2 caps busPIRone (BUSPAR) 10 mg tablet Take 10 mg by mouth two times a day. cyclobenzaprine (FLEXERIL) 5 mg tablet Take 5 mg by mouth two times a day as needed for muscle spasm. lisinopril (ZESTRIL) 10 mg tablet Take 10 mg by mouth once daily. ondansetron (ZOFRAN) 4 mg tablet Take 4 mg by mouth every 8 hours as needed. insulin glargine,hum.rec.anlog (LANTUS SUBCUTANEOUS) Inject 22 Units subcutaneously daily at bedtime. insulin lispro (HUMALOG PEN SUBCUTANEOUS) Inject 14 Units subcutaneously three times a day with meals. prochlorperazine (COMPAZINE) 10 mg tablet Take 1 tablet by mouth every 6 hours as needed. ondansetron (ZOFRAN) 8 mg tablet Take 1 tablet by mouth every 8 hours as needed for nausea/vomiting. aspirin, enteric coated (ASPIRIN, ENTERIC COATED) 81 mg EC tablet Take 81 mg by mouth. (Patient not taking: Reported on 11/01/2024) celecoxib (CELEBREX) 100 mg capsule Take 100 mg by mouth twice daily. (Patient not taking: Reported on 11/01/2024) cholecalciferol (VITAMIN D3) 1,000 unit tab tablet Take 1,000 Units by mouth. (Patient not taking: Reported on 11/01/2024) dicyclomine (BENTYL) 10 mg capsule Take 10 mg by mouth. (Patient not taking: Reported on 11/01/2024) glimepiride (AMARYL) 4 mg tablet Take 4 mg by mouth. (Patient not taking: Reported on 11/01/2024) metoprolol tartrate, short acting, (LOPRESSOR) 50 mg tablet Take 50 mg by mouth twice daily. (Patient taking differently: Take 25 mg by mouth two times a day.) omeprazole (PRILOSEC) 20 mg capsule take 1 capsule by mouth twice a day , 30 MINUTES BEFORE MORNING MEAL, NEEDED (Patient not taking: Reported on 11/01/2024) potassium chloride 20 mEq TbER Take 1 tablet by mouth twice daily. (Patient not taking: Reported on 11/01/2024) rOPINIRole (REQUIP) 1 mg tablet Take 1 mg by mouth. (Patient taking differently: Take 1 mg by mouth two times a day. 1 tab in am and 2 tabs at bedtime) OZEMPIC 1 mg/dose (4 mg/3 mL) pen DIAL AND INJECT 1MG subcutaneously every week (Patient not taking: Reported on 11/01/2024) vitam (more content not included)... Normal [facility] Rosie 11-04-2024 ANDI Telephone (PSCN) ----- PUJA WYMAN ([id number]) 1970 F CHT Date Time Provider Department 11/04/24 RALPH EDWARD [facility] During your visit today, we recorded the following information about you: Ralph Edward LISW 11/04/2024 10:01 AM Signed Social Work Problem Referral Note INFORMATION/REFERRAL: Puja Wyman, 54 year old female, was referred by Dr. Marie DO to [facility] for the following reason(s): homecare services - patient with limited support in the home PERSONS INTERVIEWED: patient INTERVENTION: Phone Contact and Information AND Referral Service Coordination Affect/Mood: The patient is noted as appropriate IDENTIFIED PROBLEMS/NEEDS: help in the home - patient requesting assistance with meal preparation and light chores, as she has mobility issues and suffers from pain, as well as fatigue. Newly diagnosed with pancreatic cancer. IMPRESSION/PLAN: Puja's reports reflect that she is still adjusting to cancer diagnosis. She reports to have three adult children who she describes to be unreliable. She does have a daughter who is helpful; however, she has work obligations. Patient also lives with her boyfriend who is working two jobs to keep their finances in order. Information provided for in-home waiver program. Will contact [facility] to support with referral. Education provided for [facility] set up, as Puja is feeling overwhelmed with navigating her appointments. She will come to [facility] to initiate chemotherapy and transfer care to [facility]. Information provided for transportation through insurance ([id number] - [phone]) in the case that Puja is in need of assistance. also provided information for [facility] Dai Deleon and provided phone number for appointment scheduling. F/U APPOINTMENT: 2 weeks SHIVA Aguayo-S Allergies As of Date: 11/04/2024 Noted Allergy Reaction SOAP 04/22/2020 4 - Hives Comments: Bubble bath Date Reviewed: 11/01/2024 Reviewed by: Darya Valdivia LPN - Fully Assessed Reason for Visit: Social Work Services [[id number]] Prescriptions as of 11/04/2024 - oxyCODONE IR (ROXICODONE) 5 mg immediate release tablet Take 2 tablets by mouth every 4 hours as needed for pain for up to 30 days. - naloxone 4 mg/actuation nasal spray (NARCAN) Use 1 spray in one nostril as needed for overdose. May repeat every 2 to 3 min in alternating nostrils until medical assistance is available - Senna 8.6 mg tab Take 8.6 mg by mouth two times a day. 2 tabs - gabapentin (NEURONTIN) 300 mg capsule Take 300 mg by mouth three times a day. 2 caps - busPIRone (BUSPAR) 10 mg tablet Take 10 mg by mouth two times a day. - cyclobenzaprine (FLEXERIL) 5 mg tablet Take 5 mg by mouth two times a day as needed for muscle spasm. - lisinopril (ZESTRIL) 10 mg tablet Take 10 mg by mouth once daily. - ondansetron (ZOFRAN) 4 mg tablet Take 4 mg by mouth every 8 hours as needed. - insulin glargine,hum.rec.anlog (LANTUS SUBCUTANEOUS) Inject 22 Units subcutaneously daily at bedtime. - insulin lispro (HUMALOG PEN SUBCUTANEOUS) Inject 14 Units subcutaneously three times a day with meals. - prochlorperazine (COMPAZINE) 10 mg tablet Take 1 tablet by mouth every 6 hours as needed. - ondansetron (ZOFRAN) 8 mg tablet Take 1 tablet by mouth every 8 hours as needed for nausea/vomiting. - aspirin, enteric coated (ASPIRIN, ENTERIC COATED) 81 mg EC tablet Take 81 mg by mouth. - celecoxib (CELEBREX) 100 mg capsule Take 100 mg by mouth twice daily. - cholecalciferol (VITAMIN D3) 1,000 unit tab tablet Take 1,000 Units by mouth. - dicyclomine (BENTYL) 10 mg capsule Take 10 mg by mouth. - glimepiride (AMARYL) 4 mg tablet Take 4 mg by mouth. - metoprolol tartrate, short acting, (LOPRESSOR) 50 mg tablet Take 50 mg by mouth twice daily. - omeprazole (PRILOSEC) 20 mg capsule take 1 capsule by mouth twice a day , 30 MINUTES BEFORE MORNING MEAL, NEEDED - potassium chloride 20 mEq TbER Take 1 tablet by mouth twice daily. - rOPINIRole (REQUIP) 1 mg tablet Take 1 mg by mouth. - OZEMPIC 1 mg/dose (4 mg/3 mL) pen DIAL AND INJECT 1MG subcutaneously every week - vitamin E, dl,tocopheryl acet, (VITAMIN E, DL, ACETATE,) 180 mg (400 unit) capsule Take 180 mg by mouth once daily. Problem List As Of Date 11/04/2024 Noted Resolved Cancer of pancreas, tail (HCC) [C25.2] 11/01/2024 Encounter Status:Closed by RALPH EDWARD on 11/04/24 Normal [facility] CNOVSPon 11-01-2024 CNOVSP Visit (SP) Office (HEMCA3) ----- PUJA WYMAN ([id number]) 1970 F CHT Date Time Provider Department 11/01/24 2:30 PM SHE DRAPER HEMCA3 During your visit today, we recorded the following information about you: Temperature Pulse Respiration Blood pressure 97.1 degrees 75/minute 18/minute 116/85 Weight Height 51.4 kg 1.564 m She Draper MD 11/01/2024 4:07 PM Signed [facility] NEW PATIENT VISIT Department of Hematology and Medical Oncology Chief Complaint(s)/ Reason for Visit Locally advanced pancreas adenocarcinoma with left renal artery, adrenal gland involvement. [facility] Surgery: Dr. Pena History of Presenting Illness Puja Wyman is a 54 year old female with recently diagnosed locally advanced pancreas tail cancer. The pertinent detail of the oncologic history is as follows: Oncology History Cancer of pancreas, tail (HCC) 09/2024 Initial Diagnosis Cancer of pancreas, tail (HCC) 10/03/2024 MRI Abdo 1. Complex solid cystic lesion involving the pancreatic body/tail, measuring at least 5.8 x 4.8 x 5.8 cm, demonstrating thick irregular peripheral enhancement as well as irregular internal septal enhancement. Precise relationship to pancreatic duct is difficult to discern. No pancreatic ductal dilatation. This lesion abuts portions of the lesser curvature of the proximal stomach, as as well as the medial spleen, and left adrenal gland. Lesion may reflect cystic neoplasm or necrotic adenocarcinoma. Recommend correlation with FNA results. 2. Portions of the splenic artery and splenic vein are obscured by complex solid cystic lesion. Visualized portions appear patent. Motion artifact limits evaluation to some extent. 3. No suspicious liver lesions. 4. A few prominent peripancreatic lymph nodes without bulky adenopathy. 5. Pancreatic perilesional stranding/fluid localized to the left upper quadrant with trace perisplenic ascites 10/16/2024 CT CAP 1. 5.5 cm solid pancreatic mass. This demonstrates some necrosis. The mass is seen to impress mildly on the posterior wall of the stomach. 2. No hepatic or pancreatic ductal dilatation. 3. Bilateral renal cysts. These require no further imaging. 1. A few punctate pulmonary nodules right upper lobe measuring up to 3 mm. Fleischner Society Guidelines for low-risk or high-risk patients recommend that one should consider chest CT at 12 months due to the morphology and/or location of this nodule. 2. Mild emphysema most pronounced towards the apices where there is pleural parenchymal scarring. No consolidation or pleural effusions. No pneumothorax. 3. Partial visualization of heterogeneous pancreatic lesion. 10/03/2024 Pathology [facility] - Pancreas, Tail - Fine Needle Aspirate: POSITIVE FOR MALIGNANT CELLS. Adenocarcinoma. 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 Pena for evaluation. She has a history of diabetes mellitus on insulin, peripheral neuropathy, and emphysema secondary to a history of smoking. On 10/02/2024, patient presented to an outside hospital ER with epigastric pain radiating to her back and left shoulder blade, persisting for six months. This was associated with a 30-pound weight loss over six months, nausea, and vomiting. An MRI of the abdomen on 10/03/2024 revealed a 5.8 x 4.8 x 5.8 cm mass in the pancreatic body/tail, abutting the lesser curvature of the proximal stomach, spleen, and left adrenal gland. An FNA biopsy of the pancreatic tail mass on the same day confirmed adenocarcinoma. A CT scan on 10/16/2024 confirmed a 5.5 cm solid pancreatic mass with necrosis, mildly impressing on the posterior wall of the stomach. It also showed a few punctate pulmonary nodules in the right upper lobe, with a follow-up CT scan recommended in 12 months, and evidence of mild emphysema. On 10/29/2024, patient was evaluated by Dr. Pena, who recommended systemic chemotherapy with re-evaluation for surgical intervention later. In recent history, patient reports severe pain rated at 6/10, managed with oxycodone 10 mg every 7 hours, though prescribed every 4 hours. She experiences significant functional limitations due to back pain and weakness, unable to lift more than 5 pounds or perform household tasks like cooking, doing dishes, or laundry. She also reports neuropathy in her right leg and left arm, with the leg neuropathy attributed to a misplaced cage device affecting the sciatic nerve. Patient has been on insulin for six months, with a history of diabetes for 4-5 years. She reports severe fatigue, often needing to pull up hand while driving to rest, and difficulty sleeping due to pain. She has an upcoming appointment with a palliative medicine doctor in November. Review of System (more content not included)... Normal [facility] 36on 10-29-2024 36 Date/Time patient contacted: 10.29.2024 4:00 pm Has a follow up appointment been made with your primary care provider? (If yes, note date/time of appt. If no, are we able to schedule or get patient in contact with provider) : She had a follow up appointment today with Dr. Pena Have your prescriptions been filled?: (If no, why not, contact pharmacist if needed): yes but know pain medication Now that you are home, I want to make sure that you understand the most important things about taking care of yourself. I see that you were discharged with a diagnosis of Diabetic ketoacidosis , do you know what symptoms or health problems to watch for or when to call your provider? Yes . She has a sliding scale for Insulin Do you have any other questions about your discharge or follow up care instructions?: (if yes, what) : No Are there any caregivers from the hospital that you would like to recognize or compliment? Every one was great. Normal [facility] CNOVon 10-29-2024 CNOV Office Visit (GENN ) ----- PUJA WYMAN ([id number]) 1970 F [facility] [place] Date Time Provider Department 10/29/24 9:30 AM KAREN PENA During your visit today, we recorded the following information about you: Temperature Pulse Blood pressure Weight 96.8 degrees 76/minute 117/69 51.3 kg Height 1.575 m [facility] 10/29/2024 11:00 AM Signed What is the reason for your visit today? Consult Who is your referring physician? Are you having poor oral intake? Yes Have you had unintentional weight loss of 15 lbs/7 Kg in the last 3-6 months? yes Bowels: Constipation Wound: clean AND dry Temperature: No Drains: No Pui, Sin Lei 10/29/2024 11:00 AM Signed INITIAL PANCREATIC CANCER PATIENT NAME: Puja Wyman DATE of SERVICE: 10/29/2024 TIME of SERVICE: 8:25 AM PCP: No primary care provider on file. This consult was requested by No ref. provider found for evaluation of pancreatic cyst(s) My final recommendations will be communicated to the requesting health care provider by way of the shared medical record or postal services. HPI: Ms. Wyman is a 54 year old female with PMH of chronic back pain, T2DM on insulin, HTN, bioplar disorder, perpheral neuropathy who presents for biopsy-confirmed pancreatic cancer. She first presented to the [facility] ED on 10/02 for epigastric pain that radiates to her back and her left shoulder blade that she originally attributed to possible kidney infection. Her pain started six months ago, but she neglected it to care for her hospitalized mother who passed in May. She has lost 30 pounds in the last 6 months, with nausea and vomitting twice a week. She had constipation, having a bowel movement every 2-3 weeks due to abdominal pain related to defecation. She is now on Miralax and stool softener and has formed stools daily. Denies anorexia, diarrhea, or past pancreatitis. Diabetes used to be well controlled on oral medications 4 years ago. However, she stopped taking her diabetes medication because she was told that her diabetes was well-controlled and she lost her medical insurance when she moved to [place]. She is now on insulin without a primary provider. CT abd/pel revealed a 5.6 cm distal pancreatic mass suspicious for pancreatic cancer. CA 19-9 significantly elevated at 3109.3. 10/03 EUS FNA positive for adenocarcinoma. HbA1c 10/15 13.5. Past abdominal surgeries: laparoscopic tubal ligation. Laparoscopic hysterectomy. Does not drink alcohol. Current smoker. Started smoking since 13, now on 4 cigarettes/day, interested in smoking cessation. The patient does not have support at home. PAST MEDICAL HISTORY See HPI PAST SURGICAL HISTORY See HPI FAMILY HISTORY See HPI Pancreatic Cancer- No Colon Cancer- No Breast Cancer- No Pancreatitis- No SOCIAL HISTORY SOCIAL HISTORY[1] REVIEW OF SYSTEMS GENERAL: Unintentional weight loss, Fatigue RESPIRATORY: Cough; dry CARDIOVASCULAR: Negative for chest pain GI: See HPI PHYSICAL EXAM: General Appearance: Thin and Walker. Skin: Skin color, texture, turgor normal, no suspicious rashes or lesions. Lungs: Unlabored on room air. Heart: Acyanotic. Abdomen: Soft, diffusely tender on bilateral upper quadrants on light palpation. LABS ALT (U/L) Date Value 05/01/2024 19 AST (U/L) Date Value 05/01/2024 13 No components found for: LB Alkaline Phosphatase (U/L) Date Value 05/01/2024 181 Imaging 10/16/2024 CT abd/pel w IV contrast 1. 5.5 cm solid pancreatic mass. This demonstrates some necrosis. The mass is seen to impress mildly on the posterior wall of the stomach. 2. No hepatic or pancreatic ductal dilatation. 3. Bilateral renal cysts. These require no further imaging. 10/22/2024 CT chest w IV contrast Again seen is a 5.5 cm distal pancreatic mass. Small amount of fluid in the thoracic esophagus. 10/03/2024 MRI abd 1. Complex solid cystic lesion involving the pancreatic body/tail, measuring at least 5.8 x 4.8 x 5.8 cm, demonstrating thick irregular peripheral enhancement as well as irregular internal septal enhancement. Precise relationship to pancreatic duct is difficult to discern. No pancreatic ductal dilatation. This lesion abuts portions of the lesser curvature of the proximal stomach, as as well as the medial spleen, and left adrenal gland. Lesion may reflect cystic neoplasm or necrotic adenocarcinoma. Recommend correlation with FNA results. 2. Portions of the splenic artery and splenic vein are obscured by complex solid cystic lesion. Visualized portions appear patent. Motion artifact limits evaluation to some extent. 3. No suspicious liver lesions. 4. A few prominent peripancreatic lymph nodes without bulky adenopathy. 5. Pancreatic perilesional stranding/fluid localized to the left upper quadrant with trace perisplenic ascites. 10/02/2024 CT abd/pe (more content not included)... Normal [facility] CBC W Auto Differential pane l (Bld)on 10-23-2024 Basophils (Bld) [#/Vol] 0.1 10*3/uL 0.0 - 0.2 10*3/uL [employer] Basophils/100 WBC (Bld) 0.7 % 0.0 - 2.0 % [employer] Eosinophils (Bld) [#/Vol] 0.3 10*3/uL 0.0 - 0.5 10*3/uL [employer] Eosinophils/100 WBC (Bld) 3.5 % 0.0 - 6.0 % [facility] Erythrocyte distribution width (RBC) [Ratio] 13.2 % 11.5 - 15.0 % [facility] Hematocrit (Bld) [Volume fraction] 36.2 % 35.0 - 47.0 % [facility] Hemoglobin (Bld) [Mass/Vol] 11.4 g/dL Low 11.7 - 16.0 g/dL [employer] Immature granulocytes (Bld) [#/Vol] 0 10*3/uL NINF - 0.1 10*3/uL [employer] Immature granulocytes/100 WBC (Bld) 0.2 % 0.0 - 2.0 % [facility] Interpretation and review of laboratory results Abnormal [facility] Lymphocytes (Bld) [#/Vol] 3.1 10*3/uL 1.0 - 4.3 10*3/uL [facility] Lymphocytes/100 WBC (Bld) 33.5 % 15.0 - 45.0 % [employer] MCH (RBC) [Entitic mass] 27.3 pg 26.0 - 34.0 pg [employer] MCHC (RBC) [Mass/Vol] 31.5 % 30.5 - 36.0 % [employer] MCV (RBC) [Entitic vol] 86.6 fL 77.0 - 99.0 fL [facility] Monocytes (Bld) [#/Vol] 1 10*3/uL High 0.0 - 0.9 10*3/uL [facility] Monocytes/100 WBC (Bld) 10.3 % 5.0 - 13.0 % [facility] Neutrophils (Bld) [#/Vol] 4.9 10*3/uL 1.8 - 7.5 10*3/uL [facility] Neutrophils/100 WBC (Bld) 51.8 % 38.0 - 82.0 % [facility] Nucleated RBC/100 WBC (Bld) [Ratio] 0 % [facility] Platelet mean volume (Bld) [Entitic vol] 9.7 fL 9.0 - 12.7 fL [facility] Platelets (Bld) [#/Vol] 350 10*3/uL 140 - 440 10*3/uL [facility] RBC (Bld) [#/Vol] 4.18 10*6/uL 3.80 - 5.20 10*6/uL [facility] WBC (Bld) [#/Vol] 9.4 10*3/uL 3.6 - 10.7 10*3/uL [facility] CBC WITH AUTO DIFFERENTIALon 10-23-2024 Basophils (Bld) [#/Vol] 0.1 10*3/uL Normal 0.0-0.2 [facility] Comment on above: Performed By: #### L [id number] ####Customer Relations Consultant: TELLO CERNA ([phone])[facility] ([facility])[address] [place] [address] Basophils/100 WBC (Bld) 0.7 % Normal 0.0-2.0 [facility] Comment on above: Performed By: #### L [id number] ####Customer Relations Consultant: TELLO CERNA ([phone])[facility] ([facility])[address] [place] [address] Eosinophils (Bld) [#/Vol] 0.3 10*3/uL Normal 0.0-0.5 [facility] Comment on above: Performed By: #### L [id number] ####Customer Relations Consultant: TELLO CERNA ([phone])[facility] ([facility])[address] Eosinophils/100 WBC (Bld) 3.5 % Normal 0.0-6.0 [facility] Comment on above: Performed By: #### L [id number] ####Customer Relations Consultant: TELLO CERNA ([phone])[facility] ([facility])[address] Erythrocyte distribution width (RBC) [Ratio] 13.2 % Normal 11.5-15.0 [facility] Comment on above: Performed By: #### L [id number] ####Customer Relations Consultant: TELLO CERNA ([phone])[facility] Hematocrit (Bld) [Volume fraction] 36.2 % Normal 35.0-47.0 [facility] Comment on above: Performed By: #### L [id number] ####Customer Relations Consultant: TELLO CERNA ([phone])[facility] ([facility])[address] Hemoglobin (Bld) [Mass/Vol] 11.4 g/dL Low 11.7-16.0 [facility] Comment on above: Performed By: #### L [id number] ####Customer Relations Consultant: TELLO CERNA ([phone])[facility] ([facility])[address] IMMATURE GRANS % 0.2 % Normal 0.0-2.0 [facility] Comment on above: Performed By: #### L [id number] ####Customer Relations Consultant: TELLO CERNA ([phone])[facility] ([facility])[address] IMMATURE GRANS ABSOLUTE 0.0 10*3/uL Normal <0.1 [facility] Comment on above: Performed By: #### L [id number] ####Customer Relations Consultant: TELLO CERNA ([phone])[facility] ([facility])[address] Lymphocytes (Bld) [#/Vol] 3.1 10*3/uL Normal 1.0-4.3 [facility] Comment on above: Performed By: #### L [id number] ####Customer Relations Consultant: TELLO MARADIAGAJose RafaelKURTIS ([phone])[facility] ([facility])[address] Lymphocytes/100 WBC (Bld) 33.5 % Normal 15.0-45.0 [facility] Comment on above: Performed By: #### L [id number] ####Customer Relations Consultant: TELLO MARADIAGAERENDIRA ([phone])[facility] [place] ([facility])[address] MCH (RBC) [Entitic mass] 27.3 pg Normal 26.0-34.0 [facility] Comment on above: Performed By: #### L [id number] ####Customer Relations Consultant: TELLO DAMIANKURTIS ([phone])[facility] [place] ([facility])[address] MCHC 31.5 % Normal 30.5-36.0 [facility] Comment on above: Performed By: #### L [id number] ####Customer Relations Consultant: TELLO DAMIANKURTIS ([phone])[facility] [place] ([facility])[address] MCV (RBC) [Entitic vol] 86.6 fL Normal 77.0-99.0 [facility] Comment on above: Performed By: #### L [id number] ####Customer Relations Consultant: TELLO CERNA ([phone])[facility] [place] ([facility])[address] Monocytes (Bld) [#/Vol] 1.0 10*3/uL High 0.0-0.9 [facility] Comment on above: Performed By: #### L [id number] ####Customer Relations Consultant: ETLLO CERNA ([phone])[facility] [place] ([facility])[address] Monocytes/100 WBC (Bld) 10.3 % Normal 5.0-13.0 [facility] Comment on above: Performed By: #### L [id number] ####Customer Relations Consultant: TELLO CERNA ([phone])[facility] [place] ([facility])[address] NEUTROPHILS ABSOLUTE 4.9 10*3/uL Normal 1.8-7.5 [facility] Comment on above: Performed By: #### L [id number] ####Customer Relations Consultant: TELLO CERNA ([phone])[facility] [place] ([facility])[address] Neutrophils/100 WBC (Bld) 51.8 % Normal 38.0-82.0 [facility] Comment on above: Performed By: #### L [id number] ####Customer Relations Consultant: TELLO CERNA ([phone])[facility] [place] ([facility])[address] NRBC 0.0 /100 WBCs Normal 0.0-2.0 [facility] Comment on above: Performed By: #### L [id number] ####Customer Relations Consultant: TELLO CERNA ([phone])[facility] [place] ([facility])[address] Platelet mean volume (Bld) [Entitic vol] 9.7 fL Normal 9.0-12.7 [facility] Comment on above: Performed By: #### L [id number] ####Customer Relations Consultant: TELLO CERNA ([phone])[facility] [place] ([facility])[address] [place] [address] [place] Platelets (Bld) [#/Vol] 350 10*3/uL Normal 140-440 [facility] Comment on above: Performed By: #### L [id number] ####Customer Relations Consultant: TELLO CERNA ([phone])[facility] [place] ([facility])[address] [place] [address] [place] RBC (Bld) [#/Vol] 4.18 10*6/uL Normal 3.80-5.20 [facility] Comment on above: Performed By: #### L [id number] ####Customer Relations Consultant: TELLO CERNA ([phone])[facility] [place] ([facility])[address] WBC (Bld) [#/Vol] 9.4 10*3/uL Normal 3.6-10.7 [facility] Comment on above: Performed By: #### L [id number] ####Customer Relations Consultant: TELLO CERNA ([phone])[facility] [place] ([facility])[address] COMPREHENSIVE METABOLIC PANE Flex 10-23-2024 Albumin [Mass/Vol] 2.8 g/dL Low 3.5-5.0 [facility] Comment on above: Performed By: #### L [id number] ####Customer Relations Consultant: TELLO CERNA ([phone])[facility] [place] ([facility])[address] ALP [Catalytic activity/Vol] 96 U/L Normal 40-150 [facility] Comment on above: Performed By: #### L [id number] ####Customer Relations Consultant: TELLO CERNA ([phone])[facility] [place] ([facility])[address] ALT [Catalytic activity/Vol] 13 U/L Normal <30 [facility] Comment on above: Performed By: #### L [id number] ####Customer Relations Consultant: TELLO CERNA ([phone])[facility] [place] ([facility])[address] Anion gap [Moles/Vol] 7 mmol/L Normal 3-13 [facility] Comment on above: Performed By: #### L [id number] ####Customer Relations Consultant: TELLO CERNA ([phone])[facility] [place] ([facility])[address] AST [Catalytic activity/Vol] 19 U/L Normal <34 [facility] Comment on above: Performed By: #### L [id number] ####Customer Relations Consultant: TELLO CERNA ([phone])[facility]ENTER[facility] ([facility])[address] Bilirubin [Mass/Vol] 0.2 mg/dL Normal <1.2 [facility] Comment on above: Performed By: #### L [id number] ####Customer Relations Consultant: TELLO CERNA ([phone])[facility]ENTERAl[facility] ([facility])[address] Calcium [Mass/Vol] 9.3 mg/dL Normal 8.4-10.2 [facility] Comment on above: Performed By: #### L [id number] ####Customer Relations Consultant: TELLO CERNA ([phone])[facility]ENTER[facility] ([facility])[address] Chloride [Moles/Vol] 100 mmol/L Normal 98-107 [facility] Comment on above: Performed By: #### L [id number] ####Customer Relations Consultant: TELLO CERNA ([phone])[facility]ENTER[facility] ([facility])[address] CO2 [Moles/Vol] 28 mmol/L Normal 22-29 [facility] Comment on above: Performed By: #### L [id number] ####Customer Relations Consultant: TELLO CERNA ([phone])[facility]ENTER[facility] ([facility])[address] Creatinine [Mass/Vol] 0.70 mg/dL Normal 0.57-1.11 [facility] Comment on above: Performed By: #### L [id number] ####Customer Relations Consultant: TELLO CERNA ([phone])[facility]ENTER[facility] ([facility])[address] GLOMERULAR FILTRATION RATE ML/MIN/1.73 SQ M.PREDICTED >90.0 Normal >60.0 [facility] Comment on above: Result Comment: Calc ulation based on the Chronic Kidney Disease Epidemiology Collaboration (CKD-EPI) equation refit without adjustment for race Performed By: #### L [id number] ####Customer Relations Consultant: TELLO CERNA ([phone])[facility]ENTER[facility] ([facility])[address] Glucose [Mass/Vol] 272 mg/dL High 74-100 [facility] Comment on above: Performed By: #### L [id number] ####Customer Relations Consultant: TELLO CERNA ([phone])[facility] ([facility])[address] Potassium [Moles/Vol] 4.4 mmol/L Normal 3.5-5.1 [facility] Comment on above: Result Comment: [facility] potassium values may be up to 0.5 mmol/L lower than serum values. Performed By: #### L [id number] ####Customer Relations Consultant: TELLO CERNA ([phone])[facility]ENTER[facility] [place] ([facility])[address] Protein [Mass/Vol] 6.3 g/dL Low 6.4-8.3 [facility] Comment on above: Performed By: #### L [id number] ####Customer Relations Consultant: TELLO CERNA ([phone])[facility] ([facility])[address] Sodium [Moles/Vol] 135 mmol/L Low 136-145 [facility] Comment on above: Performed By: #### L [id number] ####Customer Relations Consultant: TELLO CERNA ([phone])[facility] ([facility])[address] Urea nitrogen [Mass/Vol] 17 mg/dL Normal 9-23 [facility] Comment on above: Performed By: #### L [id number] ####Customer Relations Consultant: TELLO CERNA ([phone])[facility] ([facility])[address] Comprehensive metabolic 1998 panelon 10-23-2024 Albumin [Mass/Vol] 2.8 g/dL Low 3.5 - 5.0 g/dL [facility] ALP [Catalytic activity/Vol] 96 U/L 40 - 150 U/L [facility] ALT [Catalytic activity/Vol] 13 U/L NINF - 30 U/L [facility] Anion gap [Moles/Vol] 7 mmol/L 3 - 13 mmol/L [facility] AST [Catalytic activity/Vol] 19 U/L NINF - 34 U/L [facility] Bilirubin [Mass/Vol] 0.2 mg/dL NINF - 1.2 mg/dL [facility] Calcium [Mass/Vol] 9.3 mg/dL 8.4 - 10. 2 mg/dL [facility] Chloride [Moles/Vol] 100 mmol/L 98 - 10 7 mmol/L [facility] CO2 [Moles/Vol] 28 mmol/L 22 - 29 mmol/L [facility] Creatinine [Mass/Vol] 0.7 mg/dL 0.57 - 1.11 mg/dL [facility] GFR/1.73 sq M.predicted (S/P/Bld) [Vol rate/Area] - PINF [facility] Glucose [Mass/Vol] 272 mg/dL High 74 - 100 mg/dL [facility] Interpretation and review of laboratory results Abnormal [facility] Potassium [Moles/Vol] 4.4 mmol/L 3.5 - 5.1 mmol/L [facility] Protein [Mass/Vol] 6.3 g/dL Low 6.4 - 8.3 g/dL [facility] Sodium [Moles/Vol] 135 mmol/L Low 136 - 145 mmol/L [facility] Urea nitrogen [Mass/Vol] 17 mg/dL 9 - 23 mg/dL [facility] Laboratory - Chemistry and C hemistry - challengeon 10-23-2024 Glucose [Mass/Vol] 195 mg/dL High 70 - 100 mg/dL [facility] Glucose [Mass/Vol] 163 mg/dL High 70 - 100 mg/dL [facility] Glucose [Mass/Vol] 251 mg/dL High 70 - 100 mg/dL [facility] No Panel Informationon 10-23 Interpretation and review of laboratory results Abnormal [facility] Interpretation and review of laboratory results Abnormal [facility] Interpretation and review of laboratory results Abnormal [facility] Nursing Noteon 10-23-2024 Nursing Note Wound Care consulted for Pressure Injury Prevention. Pt's Rafael= 22, pt is no longer at risk at this time. Skin Care Precaution order set in place. Dietitian consult in place. Will continue to follow peripherally. Please secure chat message with any questions. Shantel Up RN [facility] Progress Noteon 10-23-2024 Progress Note Received call from [employer] service that pt requested discontinuation of Ensure Max. Pt's family reportedly is bringing in [employer] supplements for the patient and would prefer to take these over available oral nutritional supplements on the [facility] formulary. RD will follow. [facility] Progress Note Contacted by Nan Schmid to bedside to assess pt after the pt bumped into a WOW while ambulating. RN stated that the pt complained of vision changes and tingling in her left arm after bumping the wow. Upon arrival to assess pt, VS stable, pt denied any vision changes and any tingling in her extremities. NIH 0. Pt stated that she was in pain on her left flank. No bruising or discoloration at the site of impact noted. RN notified of findings. Pt to stay at current level of care. [facility] Progress Note Department of Consultant [employer] al Medicine Division of Endocrinology, Diabetes, & Metabolism Endocrinology Note Patient Name: Puja Wyman : 1970 AGE: 54 y.o. Room[facility]: [facility] Admission Date: 10/15/2024 Visit Date: 10/23/2024 Reason for Endocrine Consult: DKA, IDDM, Hyperglycemia Provider/Team Requesting Consult: Dr. Rivera PCP: Donan Kumar DO Outpt Vacuum Cleaner Repairer: No ASSESSMENT: DKA Insulin Dependent Diabetes Mellitus Pancreatic cancer status post EUS with FNA positive for adenocarcinoma Pancreatic Mass Abdominal pain Tachycardia Constipation PLAN: Continue Lantus 22 units nightly Increase Humalog to 14 units TID Continue Humalog to low dose sliding scale TID Counseled patient to take insulin regularly. - Set timers to help with regularity or insulin Pt was counseled that diet and exercise are the foundation of DM treatment. If these 2 areas are not optimized then the pt will likely require more medications or higher doses to achieve control. Patient counseled on risk of complications associated with uncontrolled Diabetes Patient counseled on BS targets and A1C target. Patient counseled on importance of diet, including eating 3 meals a day with consistent carbohydrate and protein Patient counseled on importance of checking BS regularly. Patient is interested in CGM for discharge - Meka 3 plus started inpatient. ICU goal <180 GMF goal <150 POCT BG ACHS Hypoglycemia management per protocol Carb controlled diet ANTICIPATED ENDOCRINE HOME GOING RECOMMENDATIONS: Optimized for Discharge from Endocrine standpoint: Yes Home Going Endocrine Rx Recommendations-- Lantus 22 units nightly Humalog 14 units TID before meals Patient to start Meka 3. Will need prescription for Meka 3 upon discharge. Reports she has insulin and all other supplies for discharge. Outpt Follow Up-- TBD SUBJECTIVE/HPI: CHIEF COMPLAINT: Chief Complaint Patient presents with Dysphagia Pt states that she has been having diffuculty swallowing due to pain for the last 3-4 months. Pt states that she was diagnosed with pancreatic cancer about 1 week ago. Reports her doctor is aware of this problem but she is unaware of whether a work up was done for that or not. Puja Wyman is a 54 yo female who presented to ED with abdominal pain, epigastric pain. Patient was diagnosed with Pancreatic cancer 1 week ago. Patient is presently on insulin and reports taking insulin but blood sugars still remain uncontrolled prior to admission. Reports she was taking insulin even if she wasn't eating but blood sugars were still elevated. Type of DM: 2 Onset of DM: 5 years ago Home DM Medication Regimen: Lantus 30 units BID AC Humalog 10 units TID AC DM control (last A1c/glucose data): Lab Results Component Value Date HGBA1C 13.5 (H) 10/15/2024 Interval history 10/23/2024 Bgls reviewed and listed below- Patient alert and oriented sitting up in bed Patient is inconsistent with insulin at home. Counseled patient on need to be consistent with insulin doses. Patient reports abdominal pain, flank pain. Meka sensor started on left arm, Nely started on phone inpatient. Glucose Date/Time Value Ref Range Status 10/23/2024 06:51 AM 251 (H) 70 - 100 mg/dL Final 10/22/2024 08:20 PM 230 (H) 70 - 100 mg/dL Final 10/22/2024 05:19 PM 239 (H) 70 - 100 mg/dL Final 10/22/2024 02:41 PM 116 (H) 70 - 100 mg/dL Final 10/22/2024 02:04 PM 144 (H) 70 - 100 mg/dL Final 10/22/2024 11:54 AM 313 (H) 70 - 100 mg/dL Final Complications: Cardiovascular -- No Statin Use -- No Nephropathy -- No AJAY/ARB Use -- No Obesity -- No Other -- Yes Pancreatic Mass Family history of dm: Both parents Hospitalized for DM: yes when initially diagnosed Home diet: Appetite reduced with fatigue in past week. Breakfast - Usually skips. Weekends - [employer] full breakfast Lunch - Not eating regularly Dinner - minimal intake recently Home exercise: NA Complications: Pancreatic mass Previously used medications: Steglatro 5 mg daily Glimepiride 4 mg daily Ozempic Farxiga Review of Systems Constitutional: Positive for fatigue. Respiratory: Negative for shortness of breath. Cardiovascular: Negative for chest pain. Gastrointestinal: Positive for abdominal pain. Neurological: Positive for weakness. ROS negative except for those mentioned in HPI. OBJECTIVE: Vitals: 10/22/24 0727 10/22/24 1512 10/22/24 2019 10/23/24 0723 BP: 133/86 150/97 145/88 141/96 BP Location: Left arm Right arm Right arm Left arm Patient Position: Lying Sitting Sitting Lying Pulse: 88 94 95 98 Resp: 20 16 18 16 Temp: 36.4 ?C (97.6 ?F) 36.7 ?C (98 ?F) 36.4 ?C (97.6 ?F) 36.4 ?C (97.5 ?F) TempSrc: Temporal Temporal Temporal Temporal SpO2: 98% 99% 98% 99% Weight: Height: Physical Exam Vitals reviewed. Constitutional: General: She is not in acute distress. Appearance: Normal ap (more content not included)... Normal [facility] CBC W Auto Differential pane l (Bld)on 10-22-2024 Basophils (Bld) [#/Vol] 0.1 10*3/uL 0.0 - 0.2 10*3/uL [facility] Basophils/100 WBC (Bld) 0.7 % 0.0 - 2.0 % [facility] Eosinophils (Bld) [#/Vol] 0.3 10*3/uL 0.0 - 0.5 10*3/uL [facility] Eosinophils/100 WBC (Bld) 3.8 % 0.0 - 6.0 % [facility] Erythrocyte distribution width (RBC) [Ratio] 13.4 % 11.5 - 15.0 % [facility] Hematocrit (Bld) [Volume fraction] 36.4 % 35.0 - 47.0 % [facility] Hemoglobin (Bld) [Mass/Vol] 11.8 g/dL 11.7 - 16.0 g/dL [facility] Immature granulocytes (Bld) [#/Vol] 0 10*3/uL NINF - 0.1 10*3/uL [facility] Immature granulocytes/100 WBC (Bld) 0.4 % 0.0 - 2.0 % [facility] Interpretation and review of laboratory results Normal [facility] Lymphocytes (Bld) [#/Vol] 2.9 10*3/uL 1.0 - 4.3 10*3/uL [facility] Lymphocytes/100 WBC (Bld) 35.2 % 15.0 - 45.0 % [facility] MCH (RBC) [Entitic mass] 27.9 pg 26.0 - 34.0 pg [facility] MCHC (RBC) [Mass/Vol] 32.4 % 30.5 - 36.0 % [facility] MCV (RBC) [Entitic vol] 86.1 fL 77.0 - 99.0 fL [facility] Monocytes (Bld) [#/Vol] 0.9 10*3/uL 0.0 - 0.9 10*3/uL [facility] Monocytes/100 WBC (Bld) 10.4 % 5.0 - 13.0 % [facility] Neutrophils (Bld) [#/Vol] 4.1 10*3/uL 1.8 - 7.5 10*3/uL [facility] Neutrophils/100 WBC (Bld) 49.5 % 38.0 - 82.0 % [facility] Nucleated RBC/100 WBC (Bld) [Ratio] 0 % [facility] Platelet mean volume (Bld) [Entitic vol] 9.8 fL 9.0 - 12.7 fL [facility] Platelets (Bld) [#/Vol] 333 10*3/uL 140 - 440 10*3/uL [facility] RBC (Bld) [#/Vol] 4.23 10*6/uL 3.80 - 5.20 10*6/uL [facility] WBC (Bld) [#/Vol] 8.2 10*3/uL 3.6 - 10.7 10*3/uL [facility] CBC WITH AUTO DIFFERENTIALon 10-22-2024 Basophils (Bld) [#/Vol] 0.1 10*3/uL Normal 0.0-0.2 [facility] Comment on above: Performed By: #### L [id number] ####Customer Relations Consultant: TELLO CERNA ([phone])[facility] [place] ([facility])[address] Basophils/100 WBC (Bld) 0.7 % Normal 0.0-2.0 [facility] Comment on above: Performed By: #### L [id number] ####Customer Relations Consultant: TELLO CERNA ([phone])[facility] [place] ([facility])[address] Eosinophils (Bld) [#/Vol] 0.3 10*3/uL Normal 0.0-0.5 [facility] Comment on above: Performed By: #### L [id number] ####Customer Relations Consultant: TELLO CERNA ([phone])[facility] [place] ([facility])[address] [place] [address] Eosinophils/100 WBC (Bld) 3.8 % Normal 0.0-6.0 [facility] Comment on above: Performed By: #### L [id number] ####Customer Relations Consultant: TELLO CERNA ([phone])[facility] [place] ([facility])[address] Erythrocyte distribution width (RBC) [Ratio] 13.4 % Normal 11.5-15.0 [facility] Comment on above: Performed By: #### L [id number] ####Customer Relations Consultant: TELLO CERNA ([phone])[facility] [place] ([facility])[address] Hematocrit (Bld) [Volume fraction] 36.4 % Normal 35.0-47.0 [facility] Comment on above: Performed By: #### L [id number] ####Customer Relations Consultant: TELLO DAMIANKURTIS ([phone])[facility] ([facility])[address] Hemoglobin (Bld) [Mass/Vol] 11.8 g/dL Normal 11.7-16.0 [facility] Comment on above: Performed By: #### L [id number] ####Customer Relations Consultant: TELLO DAMIANKURTIS ([phone])[facility] ([facility])[address] IMMATURE GRANS % 0.4 % Normal 0.0-2.0 [facility] Comment on above: Performed By: #### L [id number] ####Customer Relations Consultant: TELLO DAMIANKURTIS ([phone])[facility] ([facility])[address] [place] [address] IMMATURE GRANS ABSOLUTE 0.0 10*3/uL Normal <0.1 [facility] Comment on above: Performed By: #### L [id number] ####Customer Relations Consultant: TELLO DAMIANKURTIS ([phone])[facility] ([facility])[address] [place] [address] Lymphocytes (Bld) [#/Vol] 2.9 10*3/uL Normal 1.0-4.3 [facility] Comment on above: Performed By: #### L [id number] ####Customer Relations Consultant: TELLO DAMIANKURTIS ([phone])[facility] ([facility])[address] [place] [address] Lymphocytes/100 WBC (Bld) 35.2 % Normal 15.0-45.0 [facility] Comment on above: Performed By: #### L [id number] ####Customer Relations Consultant: TELLO DAMIANKURTIS ([phone])[facility] ([facility])[address] [place] [address] MCH (RBC) [Entitic mass] 27.9 pg Normal 26.0-34.0 [facility] Comment on above: Performed By: #### L [id number] ####Customer Relations Consultant: TELLO DAMIANKURTIS ([phone])[facility] [place] ([facility])[address] MCHC 32.4 % Normal 30.5-36.0 [facility] Comment on above: Performed By: #### L [id number] ####Customer Relations Consultant: TELLO DAMIANKURTIS ([phone])[facility] [place] ([facility])[address] MCV (RBC) [Entitic vol] 86.1 fL Normal 77.0-99.0 [facility] Comment on above: Performed By: #### L [id number] ####Customer Relations Consultant: TELLO DAMIANKURTIS ([phone])[facility] [place] ([facility])[address] Monocytes (Bld) [#/Vol] 0.9 10*3/uL Normal 0.0-0.9 [facility] Comment on above: Performed By: #### L [id number] ####Customer Relations Consultant: TELLO CERNA ([phone])[facility] [place] ([facility])[address] Monocytes/100 WBC (Bld) 10.4 % Normal 5.0-13.0 [facility] Comment on above: Performed By: #### L [id number] ####Customer Relations Consultant: TELLO DAMIANKURTIS ([phone])[facility] [place] ([facility])[address] NEUTROPHILS ABSOLUTE 4.1 10*3/uL Normal 1.8-7.5 [facility] Comment on above: Performed By: #### L [id number] ####Customer Relations Consultant: TELLO CERNA ([phone])[facility] [place] ([facility])[address] Neutrophils/100 WBC (Bld) 49.5 % Normal 38.0-82.0 [facility] Comment on above: Performed By: #### L [id number] ####Customer Relations Consultant: TELLO CERNA ([phone])[facility] ([facility])[address] NRBC 0.0 /100 WBCs Normal 0.0-2.0 [facility] Comment on above: Performed By: #### L [id number] ####Customer Relations Consultant: TELLO CERNA ([phone])[facility] ([facility])[address] Platelet mean volume (Bld) [Entitic vol] 9.8 fL Normal 9.0-12.7 [facility] Comment on above: Performed By: #### L [id number] ####Customer Relations Consultant: TELLO CERNA ([phone])[facility] ([facility])[address] Platelets (Bld) [#/Vol] 333 10*3/uL Normal 140-440 [facility] Comment on above: Performed By: #### L [id number] ####Customer Relations Consultant: TELLO CERNA ([phone])[facility] ([facility])[address] RBC (Bld) [#/Vol] 4.23 10*6/uL Normal 3.80-5.20 [facility] Comment on above: Performed By: #### L [id number] ####Customer Relations Consultant: TELLO CERNA ([phone])[facility] ([facility])[address] [place] [address] [place] WBC (Bld) [#/Vol] 8.2 10*3/uL Normal 3.6-10.7 [facility] Comment on above: Performed By: #### L [id number] ####Customer Relations Consultant: TELLO CERNA ([phone])[facility] ([facility])[address] COMPREHENSIVE METABOLIC PANE Flex 10-22-2024 Albumin [Mass/Vol] 2.8 g/dL Low 3.5-5.0 [facility] Comment on above: Performed By: #### L [id number] ####Customer Relations Consultant: TELLO CERNA ([phone])[facility] [place] ([facility])[address] ALP [Catalytic activity/Vol] 96 U/L Normal 40-150 [facility] Comment on above: Performed By: #### L AB17 ####Customer Relations Consultant: TELLO CERNA ([phone])[facility] [place] ([facility])[address] ALT [Catalytic activity/Vol] 10 U/L Normal <30 [facility] Comment on above: Performed By: #### L AB17 ####Customer Relations Consultant: TELLO CERNA ([phone])[facility] [place] ([facility])[address] Anion gap [Moles/Vol] 7 mmol/L Normal 3-13 [facility] Comment on above: Performed By: #### L AB17 ####Customer Relations Consultant: TELLO CERNA ([phone])[facility] ([facility])[address] AST [Catalytic activity/Vol] 19 U/L Normal <34 [facility] Comment on above: Performed By: #### L AB17 ####Customer Relations Consultant: TELLO CERNA ([phone])[facility] [place] ([facility])[address] Bilirubin [Mass/Vol] 0.2 mg/dL Normal <1.2 [facility] Comment on above: Performed By: #### L AB17 ####Customer Relations Consultant: TELLO CERNA ([phone])[facility] [place] ([facility])[address] Calcium [Mass/Vol] 9.2 mg/dL Normal 8.4-10.2 [facility] Comment on above: Performed By: #### L [id number] ####Customer Relations Consultant: TELLO CERNA ([phone])[facility] [place] ([facility])[address] [place] [address] [place] Chloride [Moles/Vol] 104 mmol/L Normal 98-107 [facility] Comment on above: Performed By: #### L AB17 ####Customer Relations Consultant: TELLO CERNA ([phone])[facility] [place] ([facility])[address] CO2 [Moles/Vol] 27 mmol/L Normal 22-29 [facility] Comment on above: Performed By: #### L AB17 ####Customer Relations Consultant: TELLO CERNA ([phone])[facility] [place] ([facility])[address] Creatinine [Mass/Vol] 0.71 mg/dL Normal 0.57-1.11 [facility] Comment on above: Performed By: #### L [id number] ####Customer Relations Consultant: TELLO CERNA ([phone])[facility] ([facility])[address] GLOMERULAR FILTRATION RATE ML/MIN/1.73 SQ M.PREDICTED >90.0 Normal >60.0 [facility] Comment on above: Result Comment: Calc ulation based on the Chronic Kidney Disease Epidemiology Collaboration (CKD-EPI) equation refit without adjustment for race Performed By: #### L AB17 ####Customer Relations Consultant: TELLO CERNA ([phone])[facility] [place] ([facility])[address] [place] [address] [place] Glucose [Mass/Vol] 206 mg/dL High 74-100 [facility] Comment on above: Performed By: #### L AB17 ####Customer Relations Consultant: TELLO CERNA ([phone])[facility] [place] ([facility])[address] [place] [address] [place] Potassium [Moles/Vol] 4.1 mmol/L Normal 3.5-5.1 [facility] Comment on above: Result Comment: [facility] potassium values may be up to 0.5 mmol/L lower than serum values. Performed By: #### L AB17 ####Customer Relations Consultant: TELLO CERNA ([phone])[facility] ([facility])[address] Protein [Mass/Vol] 6.1 g/dL Low 6.4-8.3 [facility] Comment on above: Performed By: #### L AB17 ####Customer Relations Consultant: TELLO NEHEMIAH ([phone])[facility] ([facility])[address] Sodium [Moles/Vol] 138 mmol/L Normal 136-145 [facility] Comment on above: Performed By: #### L AB17 ####Customer Relations Consultant: TELLOBJ CERNA ([phone])[facility] ([facility])[address] Urea nitrogen [Mass/Vol] 14 mg/dL Normal 9-23 [facility] Comment on above: Performed By: #### L [id number] ####Customer Relations Consultant: TELLOBJ CERNA ([phone])[facility] ([facility])[address] [place] [address] CT CHEST W IV CONTRASTon CT CHEST W IV CONTRAST Patient Name[facility]NAN : 1970 [id number] Exam Date/Time: 10/22/2024 17:20 Procedure: CT CHEST W IV CONTRAST Ordering Provider: GILLESPIE GREGORY Reason For Exam: Pleural effusion, malignancy suspected CT chest with contrast History: Pancreatic mass Technique: 3 mm axial images from the lung apices to the level of the adrenal glands with intravenous contrast Dose reduction was employed with automated exposure control. Comparison: CT abdomen and pelvis 10/15/2024 Again seen is a 5.5 cm distal pancreatic mass. The lungs and pleural spaces are clear. No lymphadenopathy. Small amount of fluid in the thoracic esophagus. No osseous lesions. IMPRESSION: Again seen is a 5.5 cm distal pancreatic mass. Small amount of fluid in the thoracic esophagus. Report Dictated on Electronically Signed By: Obey Pruitt MD Electronically Signed Date/Time: 10/22/2024 6:36 PM EDT Shortness of breath, smoker. Hx pancreatic mass. Concern for malignancy/ pleural effusion Normal [facility] CT Chest W contrast Katya [facility] RADIOLOGY [facility] RADIOLOGY [facility] Radiology Study observation (narrative) [facility] CT Chest W contrast IVOrdere d By: Obey Pruitt on 10-22-2024 [facility] Work Phone: Comprehensive metabolic 1998 panelon 10-22-2024 Albumin [Mass/Vol] 2.8 g/dL Low 3.5 - 5.0 g/dL [facility] ALP [Catalytic activity/Vol] 96 U/L 40 - 150 U/L [facility] ALT [Catalytic activity/Vol] 10 U/L NINF - 30 U/L [facility] Anion gap [Moles/Vol] 7 mmol/L 3 - 13 mmol/L [facility] AST [Catalytic activity/Vol] 19 U/L NINF - 34 U/L [facility] Bilirubin [Mass/Vol] 0.2 mg/dL NINF - 1.2 mg/dL [facility] Calcium [Mass/Vol] 9.2 mg/dL 8.4 - 10. 2 mg/dL [facility] Chloride [Moles/Vol] 104 mmol/L 98 - 10 7 mmol/L [facility] CO2 [Moles/Vol] 27 mmol/L 22 - 29 mmol/L [facility] Creatinine [Mass/Vol] 0.71 mg/dL 0.57 - 1.11 mg/dL [facility] GFR/1.73 sq M.predicted (S/P/Bld) [Vol rate/Area] - PINF [facility] Glucose [Mass/Vol] 206 mg/dL High 74 - 100 mg/dL [facility] Interpretation and review of laboratory results Abnormal [facility] Potassium [Moles/Vol] 4.1 mmol/L 3.5 - 5.1 mmol/L [facility] Protein [Mass/Vol] 6.1 g/dL Low 6.4 - 8.3 g/dL [facility] Sodium [Moles/Vol] 138 mmol/L 136 - 145 mmol/L [facility] [employer] Urea nitrogen [Mass/Vol] 14 mg/dL 9 - 23 mg/dL [facility] Laboratory - Chemistry and C hemistry - challengeon 10-22-2024 Glucose [Mass/Vol] 230 mg/dL High 70 - 100 mg/dL [facility] [employer] Glucose [Mass/Vol] 239 mg/dL High 70 - 100 mg/dL [facility] Glucose [Mass/Vol] 116 mg/dL High 70 - 100 mg/dL [facility] Glucose [Mass/Vol] 144 mg/dL High 70 - 100 mg/dL [facility] Glucose [Mass/Vol] 313 mg/dL High 70 - 100 mg/dL [facility] Glucose [Mass/Vol] 206 mg/dL High 70 - 100 mg/dL [facility] [employer] No Panel Informationon 10-22 Interpretation and review of laboratory results Abnormal [facility] Interpretation and review of laboratory results Abnormal [facility] Interpretation and review of laboratory results Abnormal [facility] Interpretation and review of laboratory results Abnormal [facility] Interpretation and review of laboratory results Abnormal [facility] Interpretation and review of laboratory results Abnormal [facility] [employer] Progress Noteon 10-22-2024 Progress Note Department of [employer]ant [employer] al Medicine Division of Endocrinology, Diabetes, & Metabolism Endocrinology Note Patient Name: Puja Wyman : 1970 AGE: 54 y.o. Room[facility]Bed: [facility] Admission Date: 10/15/2024 Visit Date: 10/22/2024 Reason for Endocrine Consult: DKA, IDDM, Hyperglycemia Provider/Team Requesting Consult: Dr. Rivera PCP: Donna Kumar DO Outpt Vacuum Cleaner Repairer: No ASSESSMENT: DKA Insulin Dependent Diabetes Mellitus Pancreatic cancer status post EUS with FNA positive for adenocarcinoma Pancreatic Mass Abdominal pain Tachycardia Constipation PLAN: Continue Lantus 22 units nightly Continue Humalog 12 units TID Continue Humalog to low dose sliding scale TID Counseled patient to take insulin regularly. - Set timers to help with regularity or insulin Pt was counseled that diet and exercise are the foundation of DM treatment. If these 2 areas are not optimized then the pt will likely require more medications or higher doses to achieve control. Patient counseled on risk of complications associated with uncontrolled Diabetes Patient counseled on BS targets and A1C target. Patient counseled on importance of diet, including eating 3 meals a day with consistent carbohydrate and protein Patient counseled on importance of checking BS regularly. Patient is interested in CGM for discharge ICU goal <180 GMF goal <150 POCT BG ACHS Hypoglycemia management per protocol Carb controlled diet ANTICIPATED ENDOCRINE HOME GOING RECOMMENDATIONS: Optimized for Discharge from Endocrine standpoint: Yes Home Going Endocrine Rx Recommendations-- Lantus - Current dose on day of discharge Humalog - Current dose on day of discharge Patient to start Meka 3. Will need prescription for Meka 3 upon discharge. Reports she has insulin and all other supplies for discharge. Outpt Follow Up-- TBD SUBJECTIVE/HPI: CHIEF COMPLAINT: Chief Complaint Patient presents with Dysphagia Pt states that she has been having diffuculty swallowing due to pain for the last 3-4 months. Pt states that she was diagnosed with pancreatic cancer about 1 week ago. Reports her doctor is aware of this problem but she is unaware of whether a work up was done for that or not. Puja Wyman is a 54 yo female who presented to ED with abdominal pain, epigastric pain. Patient was diagnosed with Pancreatic cancer 1 week ago. Patient is presently on insulin and reports taking insulin but blood sugars still remain uncontrolled prior to admission. Reports she was taking insulin even if she wasn't eating but blood sugars were still elevated. Type of DM: 2 Onset of DM: 5 years ago Home DM Medication Regimen: Lantus 30 units BID AC Humalog 10 units TID AC DM control (last A1c/glucose data): Lab Results Component Value Date HGBA1C 13.5 (H) 10/15/2024 Interval history 10/22/2024 Bgls reviewed and listed below- Patient alert and oriented sitting up in bed Patient is inconsistent with insulin at home. Counseled patient on need to be consistent with insulin doses. Patient reports abdominal pain, flank pain. Meka sensor started on left arm, Nely started on phone inpatient. Glucose Date/Time Value Ref Range Status 10/22/2024 11:54 AM 313 (H) 70 - 100 mg/dL Final 10/22/2024 07:23 AM 206 (H) 70 - 100 mg/dL Final 10/21/2024 07:32 PM 172 (H) 70 - 100 mg/dL Final 10/21/2024 06:58 PM 124 (H) 70 - 100 mg/dL Final 10/21/2024 04:41 PM 85 70 - 100 mg/dL Final 10/21/2024 11:16 AM 280 (H) 70 - 100 mg/dL Final Complications: Cardiovascular -- No Statin Use -- No Nephropathy -- No AJAY/ARB Use -- No Obesity -- No Other -- Yes Pancreatic Mass Family history of dm: Both parents Hospitalized for DM: yes when initially diagnosed Home diet: Appetite reduced with fatigue in past week. Breakfast - Usually skips. Weekends - [employer] full breakfast Lunch - Not eating regularly Dinner - minimal intake recently Home exercise: NA Complications: Pancreatic mass Previously used medications: Steglatro 5 mg daily Glimepiride 4 mg daily Ozempic Farxiga Review of Systems Constitutional: Positive for fatigue. Respiratory: Negative for shortness of breath. Cardiovascular: Negative for chest pain. Gastrointestinal: Positive for abdominal pain and constipation. Neurological: Positive for weakness. ROS negative except for those mentioned in HPI. OBJECTIVE: Vitals: 10/21/24 1931 10/21/24 2347 10/22/24 0323 10/22/24 0727 BP: 131/82 137/88 139/91 133/86 BP Location: Right arm Right arm Right arm Left arm Patient Position: Sitting Sitting Sitting Lying Pulse: 86 76 76 88 Resp: 18 18 18 20 Temp: 36.9 ?C (98.4 ?F) 36 ?C (96.8 ?F) 36.5 ?C (97.7 ?F) 36.4 ?C (97.6 ?F) TempSrc: Temporal Temporal Temporal Temporal SpO2: 97% 98% 99% 98% Weight: Height: Physical Exam Vitals reviewed. Constitutional: General: She is not in acute distress. Appearance: Norm (more content not included)... Normal [facility] BASIC METABOLIC PANELon 09-28 Anion gap [Moles/Vol] 8 mmol/L Normal -13 [facility] Comment on above: Performed By: #### L AB15 ####Customer Relations Consultant: TELLO CERNA ([phone])[facility] ([facility])[address] [place] [address] Calcium [Mass/Vol] 9.2 mg/dL Normal 8.4-10.2 [facility] Comment on above: Performed By: #### L AB15 ####Customer Relations Consultant: TELLO CERNA ([phone])[facility] ([facility])[address] Chloride [Moles/Vol] 100 mmol/L Normal 98-107 [facility] Comment on above: Performed By: #### L AB15 ####Customer Relations Consultant: TELLO CERNA ([phone])[facility] ([facility])[address] CO2 [Moles/Vol] 26 mmol/L Normal 22-29 [facility] Comment on above: Performed By: #### L AB15 ####Customer Relations Consultant: TELLO CERNA ([phone])[facility] (SBAB)[address] Creatinine [Mass/Vol] 0.70 mg/dL Normal 0.57-1.11 [facility] Comment on above: Performed By: #### L AB15 ####Customer Relations Consultant: TELLO CERNA ([phone])[facility] GLOMERULAR FILTRATION RATE ML/MIN/1.73 SQ M.PREDICTED >90.0 Normal >60.0 [facility] Comment on above: Result Comment: Calc ulation based on the Chronic Kidney Disease Epidemiology Collaboration (CKD-EPI) equation refit without adjustment for race Performed By: #### L AB15 ####Customer Relations Consultant: TELLO CERNA ([phone])[facility] ([facility])[address] [place] [address] [place] Glucose [Mass/Vol] 296 mg/dL High 74-100 [facility] Comment on above: Performed By: #### L AB15 ####Customer Relations Consultant: TELLO CERNA ([phone])[facility] (SBAB)[address] [place] [address] [place] Potassium [Moles/Vol] 4.0 mmol/L Normal 3.5-5.1 [facility] Comment on above: Result Comment: [facility] potassium values may be up to 0.5 mmol/L lower than serum values. Performed By: #### L AB15 ####Customer Relations Consultant: TELLO CERNA ([phone])[facility] ([facility])[address] Sodium [Moles/Vol] 134 mmol/L Low 136-145 [facility] Comment on above: Performed By: #### L AB15 ####Customer Relations Consultant: TELLO CERNA ([phone])[facility] ([facility])[address] Urea nitrogen [Mass/Vol] 11 mg/dL Normal 9-23 [facility] Comment on above: Performed By: #### L AB15 ####Customer Relations Consultant: TELLO CERNA ([phone])[facility] ([facility])[address] [place] [address] Basic metabolic 1998 panelon 10-21-2024 Anion gap [Moles/Vol] 8 mmol/L 3 - 13 mmol/L [facility] Calcium [Mass/Vol] 9.2 mg/dL 8.4 - 10. 2 mg/dL [facility] Chloride [Moles/Vol] 100 mmol/L 98 - 10 7 mmol/L [facility] CO2 [Moles/Vol] 26 mmol/L 22 - 29 mmol/L [facility] Creatinine [Mass/Vol] 0.7 mg/dL 0.57 - 1.11 mg/dL [facility] GFR/1.73 sq M.predicted (S/P/Bld) [Vol rate/Area] - PINF [facility] Glucose [Mass/Vol] 296 mg/dL High 74 - 100 mg/dL [facility] Interpretation and review of laboratory results Abnormal [facility] Potassium [Moles/Vol] 4 mmol/L 3.5 - 5.1 mmol/L [facility] Sodium [Moles/Vol] 134 mmol/L Low 136 - 145 mmol/L [facility] Urea nitrogen [Mass/Vol] 11 mg/dL 9 - 23 mg/dL [facility] CBC (HEMOGRAM)on 10-21-2024 Erythrocyte distribution width (RBC) [Ratio] 13.2 % Normal 11.5-15.0 [facility] Comment on above: Performed By: #### L [id number] ####Customer Relations Consultant: TELLO CERNA ([phone])[facility] CENTERAlfonso COLTENDANISHA (SBHLAB)[address] Hematocrit (Bld) [Volume fraction] 37.2 % Normal 35.0-47.0 [facility] Comment on above: Performed By: #### L [id number] ####Customer Relations Consultant: TELLO CERNA ([phone])[facility] (SBAB)[address] [place] [address] Hemoglobin (Bld) [Mass/Vol] 12.1 g/dL Normal 11.7-16.0 [facility] Comment on above: Performed By: #### L [id number] ####Customer Relations Consultant: TELLO CERNA ([phone])[facility] (SBHLAB)[address] MCH (RBC) [Entitic mass] 27.8 pg Normal 26.0-34.0 [facility] Comment on above: Performed By: #### L [id number] ####Customer Relations Consultant: TELLO CERNA ([phone])[facility]ENTER[facility] (SBHLAB)[address] [place] [address] MCHC 32.5 % Normal 30.5-36.0 [facility] Comment on above: Performed By: #### L [id number] ####Customer Relations Consultant: TELLO CERNA ([phone])[facility] (SBHLAB)[address] MCV (RBC) [Entitic vol] 85.5 fL Normal 77.0-99.0 [facility] Comment on above: Performed By: #### L [id number] ####Customer Relations Consultant: TELLO CERNA ([phone])[facility] (SBHLAB)[address] Platelet mean volume (Bld) [Entitic vol] 9.9 fL Normal 9.0-12.7 [facility] Comment on above: Performed By: #### L [id number] ####Customer Relations Consultant: TELLO CERNA ([phone])[facility] (SBHLAB)[address] Platelets (Bld) [#/Vol] 314 10*3/uL Normal 140-440 [facility] Comment on above: Performed By: #### L [id number] ####Customer Relations Consultant: TELOL CERNA ([phone])[facility] (SBHLAB)[address] RBC (Bld) [#/Vol] 4.35 10*6/uL Normal 3.80-5.20 [facility] Comment on above: Performed By: #### L [id number] ####Customer Relations Consultant: TELLO CERNA ([phone])[facility] (SBHLAB)[address] [place] [address] WBC (Bld) [#/Vol] 9.4 10*3/uL Normal 3.6-10.7 [facility] Comment on above: Performed By: #### L [id number] ####Customer Relations Consultant: TELLO CERNA ([phone])[facility] [place] [address] CBC panel Auto (Bld)on 10-21 Erythrocyte distribution width (RBC) [Ratio] 13.2 % 11.5 - 15.0 % [facility] Hematocrit (Bld) [Volume fraction] 37.2 % 35.0 - 47.0 % [facility] Hemoglobin (Bld) [Mass/Vol] 12.1 g/dL 11.7 - 16.0 g/dL [facility] Interpretation and review of laboratory results Normal [facility] MCH (RBC) [Entitic mass] 27.8 pg 26.0 - 34.0 pg [facility] MCHC (RBC) [Mass/Vol] 32.5 % 30.5 - 36.0 % [facility] MCV (RBC) [Entitic vol] 85.5 fL 77.0 - 99.0 fL [facility] Platelet mean volume (Bld) [Entitic vol] 9.9 fL 9.0 - 12.7 fL [facility] Platelets (Bld) [#/Vol] 314 10*3/uL 140 - 440 10*3/uL [facility] RBC (Bld) [#/Vol] 4.35 10*6/uL 3.80 - 5.20 10*6/uL [facility] WBC (Bld) [#/Vol] 9.4 10*3/uL 3.6 - 10.7 10*3/uL [facility] Laboratory - Chemistry and C hemistry - challengeon 10-21-2024 Glucose [Mass/Vol] 172 mg/dL High 70 - 100 mg/dL [facility] Glucose [Mass/Vol] 124 mg/dL High 70 - 100 mg/dL [facility] Glucose [Mass/Vol] 85 mg/dL 70 - 100 mg/dL [facility] Glucose [Mass/Vol] 280 mg/dL High 70 - 100 mg/dL [facility] Glucose [Mass/Vol] 273 mg/dL High 70 - 100 mg/dL [facility] Glucose [Mass/Vol] 318 mg/dL High 70 - 100 mg/dL [facility] No Panel Informationon 10-21 Interpretation and review of laboratory results Abnormal [facility] Interpretation and review of laboratory results Abnormal [facility] Interpretation and review of laboratory results Normal [facility] Interpretation and review of laboratory results Abnormal [facility] Interpretation and review of laboratory results Abnormal [facility] Interpretation and review of laboratory results Abnormal [facility] Nursing Noteon 10-21-2024 Nursing Note Patient complained o f severe abdominal pain had given her oxycodone 5mg but she felt it was not helping her enough, also she reported that she had not had a proper bowel movement for the last 2 weeks I had already given her stool softer and miralax different timings but the tummy felt hard to palpate and tender. Reached out the covering Doctor and ordered KUB at 5.40 AM reached to the opthalmic tech for the same. Patient diaphoretic due to pain Vitals taken and reordered on the chart, given oxycodone 5 mg at 6 AM awaits KUB. Reassured the patient everything is being done to fix the issue. [facility] Progress Noteon 10-21-2024 Progress Note Nutrition Assessment Type and Reason for Visit: Reassess (recent dx pancreatic ca) Nutrition Recommendations/Plan: Suggest to continue Adult diet Regular; 5 carb choices (75 gm/meal) . per MNT protocol , will discontinue Glucerna and trial Ensure Max protein ( 150 soto, 30 gm pro/serving) once daily. Please document PO intakes-diet and ONS- consistently in the flowsheet to better assess intake adequacy. Psych following - medications adjusted Monitor labs, status, intakes to reassess. Malnutrition Assessment: Malnutrition Status: Severe malnutrition Context: Chronic Illness Findings of the 6 clinical characteristics of malnutrition: Energy Intake: 75% or less estimated energy requirements for 1 month or longer Weight Loss: Mild weight loss (specify amount and time period) (-6.1% weight loss x5 months) Body Fat Loss: Mild body fat loss (MODERATE) Buccal region, Triceps, Orbital Muscle Mass Loss: Severe muscle mass loss Temples (temporalis), Clavicles (pectoralis & deltoids), Thigh (quadraceps) Fluid Accumulation: No significant fluid accumulation Hospital Monitor Strength: Measurable reduction in fittings tightener strength Nutrition Assessment: per MD-BRIEF HOSPITAL COURSE: 54-year-old patient with past medical history of anxiety depression, HTN, pancreatic abnormality status post FNA via EUS 10/03 (CA 19-9, CEA all abn), RLS, sleep apnea, tobacco use who presented 10/15 with complaints of abdominal pain found to be in DKA. While hospitalized endocrine was following and treating his DKA which has since resolved, palliative care was consulted for complaints of dysphagia and to get his goals of care, psychiatry consulted for patient's psychiatric medical conditions. No oncology consult seen (STILL CONSULTED, follow up 10/21), pt states plan was to follow up at [facility]. 10/19 a lot of gas and headache, medications adjusted 10/20 encouraging better eating habits. Spent time wth patient and fam discussing next steps. Oncology has yet to see pt. Interval History: Labs and vitals reviewed this morning, continues to be stable but blood glucose continues to increase 417 this morning. Endo is following and has been adjusting her insulin.no major complaints today, just wondering plan for after dispo. No oncology notes noted this admission, states that she does have somebody's card and she is to follow-up outpatient. Plan is for her to go to [place] for follow-up. Of note she was eating a frosty that her family brought in.Assessment-Acute, acute on chronic, unstable/uncontrolled chronic problems/diagnoses: Intractable abdominal pain, nausea and vomiting due to gastroparesis Gastroparesis DKA due to pancreatic abnormality and type 2 diabetes Persistent hyperglycemia Pancreatic cancer status post EUS with FNA positive for adenocarcinoma Constipation Headache Stable chronic problems affecting care, new non-acute diagnoses: Anxiety Depression Bipolar disorder Chronic pain syndrome RLS HTN HLD Neuropathy Estimated Daily Nutrient Needs: Energy Requirements Based On: Kcal/kg Weight Used for Energy Requirements: [place] Weight for Energy Calculation (kg): 50 kg Total Energy Requirements (kcals/day): 5424-1709 (27-32 kcal/kg IBW) Weight Used for Protein Requirements: [place] Weight in Kg Used for Protein Requirements: 50 kg Estimated Total Protein (g/day): 60-75 (1.2-1.5 g protein/kg IBW) Estimated Daily Total Fluid (ml/day): per MD Nutrition Related Findings: hbaic 13.5, had small bm today,on buspar, insulin, latuda ,nicoderm ,senokot, rafael 22,no edema, glu 273, na 134,alb 3.4 Wound Type: None Current Nutrition Therapies: Adult diet Regular; 5 carb choices (75 gm/meal) Current Oral Intake Average Meal Intake: 51-75%, 76-100%, 1-25% Average Supplements Intake: 51-75% Anthropometric Measures: Height: 157.5 cm (5' 2) Current Body Weight: 53.5 kg (118 lb) Weight Source: Stated Admission Body Weight: 53.5 kg (118 lb) Usual Body Weight: 57 kg (125 lb 9.6 oz) (per EMR --> 140# 07/24/23; 125.6# 05/17/24) % Weight Change (Calculated): -6.1 [place] Body Weight (lbs) (Calculated): 110 lbs [place] Body Weight (Kg) (Calculated): 50 kg % [place] Body Weight (Calculated): 107.3 % BMI (kg/m2) (Calculated): 21.6 Weight Adjustment For: No Adjustment BMI Categories: Normal Weight (BMI 18.5-24.9) Nutrition Diagnosis: Severe malnutrition, In context of chronic illness related to inadequate protein-energy intake, altered GI function, pain as evidenced by poor intake prior to admission, severe muscle loss Inadequate protein-energy intake related to altered GI function as evidenced by lab values, GI abnormality Nutrition Interventions: Nutrition Education/Counseling: Education initiated (desire low sugar ons) Coordination of Nutrition Care: Continue to monitor while inpatient Plan of Care discussed with: patient Goals: Previous Goal Met: Progressing toward Goal(s) Goals: Meet at least 75% of estimated needs, other (sp (more content not included)... Normal [facility] Progress Note Department of Consultant Technology al Medicine Division of Endocrinology, Diabetes, & Metabolism Endocrinology Note Patient Name: Puja Wyman : 1970 AGE: 54 y.o. Room/Bed: [facility]/[address] Admission Date: 10/15/2024 Visit Date: 10/21/2024 Reason for Endocrine Consult: DKA, IDDM, Hyperglycemia Provider/Team Requesting Consult: Dr. Rivera PCP: Donna Kumar DO Outpt Vacuum Cleaner Repairer: No ASSESSMENT: DKA Insulin Dependent Diabetes Mellitus Pancreatic cancer status post EUS with FNA positive for adenocarcinoma Pancreatic Mass Abdominal pain Tachycardia Constipation PLAN: Lantus 22 units nightly Increased Humalog 12 units TID with meals but then due to abdominal pain, Patient only having clears for dinner tonight, Decreased humalog to 4 units. Once patient tolerating solid food tomorrow morning, will increase dose Humalog medium dose sliding scale ACHS Counseled patient to take insulin regularly. - Set timers to help with regularity or insulin Pt was counseled that diet and exercise are the foundation of DM treatment. If these 2 areas are not optimized then the pt will likely require more medications or higher doses to achieve control. Patient counseled on risk of complications associated with uncontrolled Diabetes Patient counseled on BS targets and A1C target. Patient counseled on importance of diet, including eating 3 meals a day with consistent carbohydrate and protein Patient counseled on importance of checking BS regularly. Patient is interested in CGM for discharge ICU goal <180 GMF goal <150 POCT BG ACHS Hypoglycemia management per protocol Carb controlled diet ANTICIPATED ENDOCRINE HOME GOING RECOMMENDATIONS: Optimized for Discharge from Endocrine standpoint: Yes Home Going Endocrine Rx Recommendations-- Lantus - Dose to be determined Humalog - Dose to be determined Patient to start Meka 3. Will need prescription for Meka 3 upon discharge. Reports she has insulin and all other supplies for discharge. Outpt Follow Up-- TBD SUBJECTIVE/HPI: CHIEF COMPLAINT: Chief Complaint Patient presents with Dysphagia Pt states that she has been having diffuculty swallowing due to pain for the last 3-4 months. Pt states that she was diagnosed with pancreatic cancer about 1 week ago. Reports her doctor is aware of this problem but she is unaware of whether a work up was done for that or not. Puja Wyman is a 54 yo female who presented to ED with abdominal pain, epigastric pain. Patient was diagnosed with Pancreatic cancer 1 week ago. Patient is presently on insulin and reports taking insulin but blood sugars still remain uncontrolled prior to admission. Reports she was taking insulin even if she wasn't eating but blood sugars were still elevated. Type of DM: 2 Onset of DM: 5 years ago Home DM Medication Regimen: Lantus 30 units BID AC Humalog 10 units TID AC DM control (last A1c/glucose data): Lab Results Component Value Date HGBA1C 13.5 (H) 10/15/2024 Interval history 10/21/2024 Bgls reviewed and listed below- Patient alert and oriented sitting up in bed Patient is inconsistent with insulin at home. Counseled patient on need to be consistent with insulin doses. Patient reports abdominal pain, flank pain. Glucose Date/Time Value Ref Range Status 10/21/2024 06:29 AM 318 (H) 70 - 100 mg/dL Final 10/20/2024 09:25 PM 342 (H) 70 - 100 mg/dL Final 10/20/2024 06:43 PM 239 (H) 70 - 100 mg/dL Final 10/20/2024 04:50 PM 214 (H) 70 - 100 mg/dL Final 10/20/2024 03:37 PM 199 (H) 70 - 100 mg/dL Final 10/20/2024 12:04 PM 228 (H) 70 - 100 mg/dL Final Complications: Cardiovascular -- No Statin Use -- No Nephropathy -- No AJAY/ARB Use -- No Obesity -- No Other -- Yes Pancreatic Mass Family history of dm: Both parents Hospitalized for DM: yes when initially diagnosed Home diet: Appetite reduced with fatigue in past week. Breakfast - Usually skips. Weekends - [employer] full breakfast Lunch - Not eating regularly Dinner - minimal intake recently Home exercise: NA Complications: Pancreatic mass Previously used medications: Steglatro 5 mg daily Glimepiride 4 mg daily Ozempic Farxiga Review of Systems Constitutional: Positive for fatigue. Respiratory: Negative for shortness of breath. Cardiovascular: Negative for chest pain. Gastrointestinal: Positive for abdominal pain and constipation. Neurological: Positive for weakness. ROS negative except for those mentioned in HPI. OBJECTIVE: Vitals: 10/20/24 2302 10/21/24 0300 10/21/24 0625 10/21/24 0806 BP: (!) 172/105 (!) 179/101 (!) 202/120 (!) 164/111 BP Location: Left arm Left arm Left arm Left arm Patient Position: Sitting Sitting Sitting Lying Pulse: 101 83 92 96 Resp: 18 22 18 16 Temp: 36.1 ?C (96.9 ?F) 36.6 ?C (97.8 ?F) (!) 35.8 ?C (96.4 ?F) 36.8 ?C (98.3 ?F) TempSrc: Temporal Temporal Temporal Temporal SpO2: 96% 98% 98% 90% Weight: (more content not included)... [facility] XR ABDOMEN 1 VIEWon 10-22-19 XR ABDOMEN 1 VIEW Patient Name: PUJA WYMAN : 1970 Exam Date/Time: 10/21/2024 07:10 Procedure: XR ABDOMEN 1 VIEW Ordering Provider: GAN ISH Reason For Exam: Abdominal pain ABDOMEN: CLINICAL INDICATION: Abdominal pain. TECHNIQUE: Supine abdomen and pelvis COMPARISON: None. FINDINGS: Mild amount stool noted throughout the large bowel. Limited evaluation for free air on supine radiography. No significantly dilated loops of small bowel or air-fluid levels. No abnormal soft tissue calcifications are noted. Posterior lumbosacral spine fixation hardware noted. IMPRESSION: Nonobstructive bowel gas pattern. Report Dictated on Electronically Signed By: Solo Anand MD Electronically Signed Date/Time: 10/21/2024 8:11 AM EDT Normal [facility] XR Abdomen Single viewon [facility] Radiology Study observation (narrative) [facility] XR Abdomen Single viewOrdere d By: Solo Anand on 10-21-2024 [facility] Work Phone: BASIC METABOLIC PANELon 09-28 Anion gap [Moles/Vol] 12 mmol/L Normal 3-13 [facility] Comment on above: Performed By: #### L AB15 ####Customer Relations Consultant: TELLO CERNA ([phone])[facility] [place] (SBHLAB)[address] Calcium [Mass/Vol] 9.2 mg/dL Normal 8.4-10.2 [facility] Comment on above: Performed By: #### L AB15 ####Customer Relations Consultant: TELLO CERNA ([phone])[facility] [place] (SBHLAB)[address] [place] [address] [place] Chloride [Moles/Vol] 100 mmol/L Normal 98-107 [facility] Comment on above: Performed By: #### L AB15 ####Customer Relations Consultant: TELLO CERNA ([phone])[facility] [place] (SBHLAB)[address] CO2 [Moles/Vol] 23 mmol/L Normal 22-29 [facility] Comment on above: Performed By: #### L AB15 ####Customer Relations Consultant: TELLO CERNA ([phone])[facility] [place] (SBHLAB)[address] [place] [address] [place] Creatinine [Mass/Vol] 0.87 mg/dL Normal 0.57-1.11 [facility] Comment on above: Performed By: #### L AB15 ####Customer Relations Consultant: TELLO CERNA ([phone])[facility] [place] (SBHLAB)[address] [place] [address] [place] GLOMERULAR FILTRATION RATE ML/MIN/1.73 SQ M.PREDICTED 78.8 mL/min/1.73m*2 Normal >60.0 [facility] Comment on above: Result Comment: Calc ulation based on the Chronic Kidney Disease Epidemiology Collaboration (CKD-EPI) equation refit without adjustment for race Performed By: #### L AB15 ####Customer Relations Consultant: TELLO CERNA ([phone])[facility]ENTERAlfon[facility] (SBHLAB)[address] Glucose [Mass/Vol] 297 mg/dL High 74-100 [facility] Comment on above: Performed By: #### L AB15 ####Customer Relations Consultant: TELLO CERNA ([phone])[facility] (SBHLAB)[address] Potassium [Moles/Vol] 4.4 mmol/L Normal 3.5-5.1 [facility] Comment on above: Result Comment: [facility] potassium values may be up to 0.5 mmol/L lower than serum values. Performed By: #### L AB15 ####Customer Relations Consultant: TELLO CERNA ([phone])[facility] (SBHLAB)[address] Sodium [Moles/Vol] 135 mmol/L Low 136-145 [facility] Comment on above: Performed By: #### L AB15 ####Customer Relations Consultant: TELLO CERNA ([phone])[facility] (SBHLAB)[address] Urea nitrogen [Mass/Vol] 19 mg/dL Normal 9-23 [facility] Comment on above: Performed By: #### L AB15 ####Customer Relations Consultant: TELLO CERNA ([phone])[facility] (SBHLAB)[address] Basic metabolic 1998 panelOr dered By: Lucille James on 10-20-2024 Anion gap [Moles/Vol] 12 mmol/L 3 - 13 mmol/L [facility] Calcium [Mass/Vol] 9.2 mg/dL 8.4 - 10. 2 mg/dL [facility] Chloride [Moles/Vol] 100 mmol/L 98 - 10 7 mmol/L [facility] CO2 [Moles/Vol] 23 mmol/L 22 - 29 mmol/L [facility] Creatinine [Mass/Vol] 0.87 mg/dL 0.57 - 1.11 mg/dL [facility] GFR/1.73 sq M.predicted (S/P/Bld) [Vol rate/Area] 78.8 mL/min - PINF [facility] Glucose [Mass/Vol] 297 mg/dL High 74 - 100 mg/dL [facility] Interpretation and review of laboratory results Abnormal [facility] Potassium [Moles/Vol] 4.4 mmol/L 3.5 - 5.1 mmol/L [facility] Sodium [Moles/Vol] 135 mmol/L Low 136 - 145 mmol/L [facility] Urea nitrogen [Mass/Vol] 19 mg/dL 9 - 23 mg/dL [facility] CBC (HEMOGRAM)on 10-20-2024 Erythrocyte distribution width (RBC) [Ratio] 13.4 % Normal 11.5-15.0 [facility] Comment on above: Performed By: #### L [id number] #### Customer Relations Consultant: TELLO CERNA ([phone]) [facility] (SBAB) [address] Hematocrit (Bld) [Volume fraction] 36.5 % Normal 35.0-47.0 [facility] Comment on above: Performed By: #### L [id number] #### Customer Relations Consultant: TELLO CERNA ([phone]) [facility] (SBHLAB) [address] Hemoglobin (Bld) [Mass/Vol] 11.6 g/dL Low 11.7-16.0 [facility] Comment on above: Performed By: #### L [id number] #### Customer Relations Consultant: TELLO CERNA ([phone]) [facility] (SBHLAB) [address] MCH (RBC) [Entitic mass] 27.4 pg Normal 26.0-34.0 [facility] Comment on above: Performed By: #### L [id number] #### Customer Relations Consultant: TELLO MELENDEZCER ([phone]) [facility] (SBHLAB) [address] MCHC 31.8 % Normal 30.5-36.0 [facility] Comment on above: Performed By: #### L [id number] #### Customer Relations Consultant: TELLO MARADIAGAERNEDIRA ([phone]) [facility] (SBHLAB) [address] MCV (RBC) [Entitic vol] 86.3 fL Normal 77.0-99.0 [facility] Comment on above: Performed By: #### L [id number] #### Customer Relations Consultant: TELLO MARADIAGAERENDIRA ([phone]) [facility] [address] Platelet mean volume (Bld) [Entitic vol] 10.2 fL Normal 9.0-12.7 [facility] Comment on above: Performed By: #### L [id number] #### Customer Relations Consultant: TELLO DAMIANKURTIS ([phone]) [facility] [address] Platelets (Bld) [#/Vol] 293 10*3/uL Normal 140-440 [facility] Comment on above: Performed By: #### L [id number] #### Customer Relations Consultant: TELLO DAMIANKURTIS ([phone]) [facility] [address] RBC (Bld) [#/Vol] 4.23 10*6/uL Normal 3.80-5.20 [facility] Comment on above: Performed By: #### L [id number] #### Customer Relations Consultant: TELLO DAMIANKURTIS ([phone]) [facility] (SBHLAB) [address] WBC (Bld) [#/Vol] 8.4 10*3/uL Normal 3.6-10.7 [facility] Comment on above: Performed By: #### L [id number] #### Customer Relations Consultant: TELLO CERNA ([phone]) [facility] (SBHLAB) [address] CBC panel Auto (Bld)on 10-20 Erythrocyte distribution width (RBC) [Ratio] 13.4 % 11.5 - 15.0 % [facility] Hematocrit (Bld) [Volume fraction] 36.5 % 35.0 - 47.0 % [facility] Hemoglobin (Bld) [Mass/Vol] 11.6 g/dL Low 11.7 - 16.0 g/dL [facility] Interpretation and review of laboratory results Abnormal [facility] MCH (RBC) [Entitic mass] 27.4 pg 26.0 - 34.0 pg [facility] MCHC (RBC) [Mass/Vol] 31.8 % 30.5 - 36.0 % [facility] MCV (RBC) [Entitic vol] 86.3 fL 77.0 - 99.0 fL [facility] Platelet mean volume (Bld) [Entitic vol] 10.2 fL 9.0 - 12.7 fL [facility] Platelets (Bld) [#/Vol] 293 10*3/uL 140 - 440 10*3/uL [facility] RBC (Bld) [#/Vol] 4.23 10*6/uL 3.80 - 5.20 10*6/uL [facility] WBC (Bld) [#/Vol] 8.4 10*3/uL 3.6 - 10.7 10*3/uL [facility] Laboratory - Chemistry and C hemistry - challengeon 10-20-2024 Glucose [Mass/Vol] 342 mg/dL High 70 - 100 mg/dL [facility] Glucose [Mass/Vol] 239 mg/dL High 70 - 100 mg/dL [facility] [facility] Glucose [Mass/Vol] 214 mg/dL High 70 - 100 mg/dL [facility] Glucose [Mass/Vol] 199 mg/dL High 70 - 100 mg/dL [facility] Glucose [Mass/Vol] 228 mg/dL High 70 - 100 mg/dL [facility] Glucose [Mass/Vol] 188 mg/dL High 70 - 100 mg/dL [facility] Glucose [Mass/Vol] 417 mg/dL High 70 - 100 mg/dL [facility] No Panel Informationon 10-20 Interpretation and review of laboratory results Abnormal [facility] Interpretation and review of laboratory results Abnormal [facility] Interpretation and review of laboratory results Abnormal [facility] Interpretation and review of laboratory results Abnormal [facility] Interpretation and review of laboratory results Abnormal [facility] Interpretation and review of laboratory results Abnormal [facility] Interpretation and review of laboratory results Abnormal [facility] Nursing Noteon 10-20-2024 Nursing Note Secure Chat message sent to Dr. Broussard and Lillian Chun FINISHED CLOTH EXAMINER: Patient already ate dinner meal around 1600 and was covered with Humalog then. Patient is now eating a tray with a sandwich for a snack but does not have HS Humalog insulin ordered. Please address. Glucose is 239. Await response. Normal [facility] Progress Noteon 10-20-2024 Progress Note Reviewed chart nidhi agarwal. Spoke with patient,. BG this am at [id number] due to she was having trouble sleeping and she had a few cups of tea with regular sugar, discussed artificial sweetener. Continue same doses for now Normal [facility] 36on 10-19-2024 36 Spoke with patient o jeovany . She would like to follow with us--TE sent--if she is still inpt Monday she would like to start Meka--she has nely. Normal [facility] BASIC METABOLIC PANELon 09-28 Anion gap [Moles/Vol] 10 mmol/L Normal - [facility] Comment on above: Performed By: #### L AB15 ####Customer Relations Consultant: TELLO CERNA ([phone])[facility] (SBHLAB)[address] Calcium [Mass/Vol] 8.4 mg/dL Normal 8.4-10.2 [facility] Comment on above: Performed By: #### L AB15 ####Customer Relations Consultant: TELLO CERNA ([phone])[facility] (SBHLAB)[address] [place] [address] [place] Chloride [Moles/Vol] 102 mmol/L Normal 98-107 [facility] Comment on above: Performed By: #### L AB15 ####Customer Relations Consultant: TELLO CERNA ([phone])[facility]ENTERAl[facility] (SBHLAB)[address] CO2 [Moles/Vol] 23 mmol/L Normal 22-29 [facility] Comment on above: Performed By: #### L AB15 ####Customer Relations Consultant: TELLO CERNA ([phone])[facility] (SBHLAB)[address] Creatinine [Mass/Vol] 0.63 mg/dL Normal 0.57-1.11 [facility] Comment on above: Performed By: #### L AB15 ####Customer Relations Consultant: TELLO CERNA ([phone])[facility] (SBHLAB)[address] GLOMERULAR FILTRATION RATE ML/MIN/1.73 SQ M.PREDICTED >90.0 Normal >60.0 [facility] Comment on above: Result Comment: Calc ulation based on the Chronic Kidney Disease Epidemiology Collaboration (CKD-EPI) equation refit without adjustment for race Performed By: #### L AB15 ####Customer Relations Consultant: TELLO CERNA ([phone])[facility]ENTERAlfon[facility] (SBHLAB)[address] Glucose [Mass/Vol] 277 mg/dL High 74-100 [facility] Comment on above: Performed By: #### L AB15 ####Customer Relations Consultant: TELLO CERNA ([phone])[facility] (SBHLAB)[address] [place] [address] [place] Potassium [Moles/Vol] 3.4 mmol/L Low 3.5-5.1 [facility] Comment on above: Result Comment: [facility] potassium values may be up to 0.5 mmol/L lower than serum values. Performed By: #### L AB15 ####Customer Relations Consultant: TELLO CERNA ([phone])[facility] (SBHLAB)[address] Sodium [Moles/Vol] 135 mmol/L Low 136-145 [facility] Comment on above: Performed By: #### L AB15 ####Customer Relations Consultant: TELLO CERNA ([phone])[facility]ENTERAlfon[facility] (SB[facility]AB)[address] Urea nitrogen [Mass/Vol] 10 mg/dL Normal - [facility] Comment on above: Performed By: #### L AB15 ####Customer Relations Consultant: TELLO CERNA ([phone])[facility] ([facility])[address] Basic metabolic 1998 panelon 10-19-2024 Anion gap [Moles/Vol] 10 mmol/L 3 - 13 mmol/L [facility] Calcium [Mass/Vol] 8.4 mg/dL 8.4 - 10. 2 mg/dL [facility] Chloride [Moles/Vol] 102 mmol/L 98 - 10 7 mmol/L [facility] CO2 [Moles/Vol] 23 mmol/L 22 - 29 mmol/L [facility] Creatinine [Mass/Vol] 0.63 mg/dL 0.57 - 1.11 mg/dL [facility] GFR/1.73 sq M.predicted (S/P/Bld) [Vol rate/Area] - PINF [facility] Glucose [Mass/Vol] 277 mg/dL High 74 - 100 mg/dL [facility] Interpretation and review of laboratory results Abnormal [facility] Potassium [Moles/Vol] 3.4 mmol/L Low 3.5 - 5.1 mmol/L [facility] Sodium [Moles/Vol] 135 mmol/L Low 136 - 145 mmol/L [facility] Urea nitrogen [Mass/Vol] 10 mg/dL 9 - 23 mg/dL [facility] CBC (HEMOGRAM)on 10-19-2024 Erythrocyte distribution width (RBC) [Ratio] 13.3 % Normal 11.5-15.0 [facility] Comment on above: Performed By: #### L [id number] ####Customer Relations Consultant: TELLO CERNA ([phone])[facility] (SBHLAB)[address] Hematocrit (Bld) [Volume fraction] 36.7 % Normal 35.0-47.0 [facility] Comment on above: Performed By: #### L [id number] ####Customer Relations Consultant: TELLO DAMIANKURTIS ([phone])[facility]ENTERAlfonso [facility] (SBHLAB)[address] Hemoglobin (Bld) [Mass/Vol] 12.0 g/dL Normal 11.7-16.0 [facility] Comment on above: Performed By: #### L [id number] ####Customer Relations Consultant: TELLO CERNA ([phone])[facility]ENTERAlfonso [facility] (SBHLAB)[address] MCH (RBC) [Entitic mass] 27.6 pg Normal 26.0-34.0 [facility] Comment on above: Performed By: #### L [id number] ####Customer Relations Consultant: TELLO CERNA ([phone])[facility]ENTERAlfonso [facility] (SBHLAB)[address] MCHC 32.7 % Normal 30.5-36.0 [facility] Comment on above: Performed By: #### L [id number] ####Customer Relations Consultant: TELLO CERNA ([phone])[facility]ENTERAl[facility]so [facility] (SBHLAB)[address] MCV (RBC) [Entitic vol] 84.6 fL Normal 77.0-99.0 [facility] Comment on above: Performed By: #### L [id number] ####Customer Relations Consultant: TELLO CERNA ([phone])[facility]ENTERAlfonso [facility]EL[facility] (SBHLAB)[address] Platelet mean volume (Bld) [Entitic vol] 11.1 fL Normal 9.0-12.7 [facility] Comment on above: Performed By: #### L [id number] ####Customer Relations Consultant: TELLO CERNA ([phone])[facility]ENTERAl[facility]so PAIGE (SBHLAB)[address] Platelets (Bld) [#/Vol] 291 10*3/uL Normal 140-440 [facility] Comment on above: Performed By: #### L [id number] ####Customer Relations Consultant: TELLO CERNA ([phone])[facility]ENTERAl[facility] (SBHLAB)[address] RBC (Bld) [#/Vol] 4.34 10*6/uL Normal 3.80-5.20 [facility] Comment on above: Performed By: #### L [id number] ####Customer Relations Consultant: TELLO CERNA ([phone])[facility]ENTERAlfonso [facility] ([facility] [place] [address] WBC (Bld) [#/Vol] 9.9 10*3/uL Normal 3.6-10.7 [facility] Comment on above: Performed By: #### L [id number] ####Customer Relations Consultant: TELLO CERNA ([phone])[facility]ENTERAlfonso PAIGE (HLAB)[address] [place] [address] CBC panel Auto (Bld)on 10-19 Erythrocyte distribution width (RBC) [Ratio] 13.3 % 11.5 - 15.0 % [facility] Hematocrit (Bld) [Volume fraction] 36.7 % 35.0 - 47.0 % [facility] Hemoglobin (Bld) [Mass/Vol] 12 g/dL 11.7 - 16.0 g/dL [facility] Interpretation and review of laboratory results Normal [facility] MCH (RBC) [Entitic mass] 27.6 pg 26.0 - 34.0 pg [facility] MCHC (RBC) [Mass/Vol] 32.7 % 30.5 - 36.0 % [facility] MCV (RBC) [Entitic vol] 84.6 fL 77.0 - 99.0 fL [facility] Platelet mean volume (Bld) [Entitic vol] 11.1 fL 9.0 - 12.7 fL [facility] Platelets (Bld) [#/Vol] 291 10*3/uL 140 - 440 10*3/uL [facility] RBC (Bld) [#/Vol] 4.34 10*6/uL 3.80 - 5.20 10*6/uL [facility] WBC (Bld) [#/Vol] 9.9 10*3/uL 3.6 - 10.7 10*3/uL [facility] ECG 12-LEADon 10-19-2024 ECG 12-LEAD IMPRESSION: Sinus rhythm Consider right atrial enlargement Electronically Signed On 10-19-2024 08:34:51 EDT by Ankit Salas Normal [facility] - Chemistry and C hemistry - challengeon 10-19-2024 Glucose [Mass/Vol] 187 mg/dL High 70 - 100 mg/dL [facility] Glucose [Mass/Vol] 305 mg/dL High 70 - 100 mg/dL [facility] Glucose [Mass/Vol] 134 mg/dL High 70 - 100 mg/dL [facility] Glucose [Mass/Vol] 329 mg/dL High 70 - 100 mg/dL [facility] Glucose [Mass/Vol] 330 mg/dL High 70 - 100 mg/dL [facility] No Panel Informationon 10-19 Interpretation and review of laboratory results Abnormal [facility] Interpretation and review of laboratory results Abnormal [facility] Interpretation and review of laboratory results Abnormal [facility] Interpretation and review of laboratory results Abnormal [facility] CV EPIPHANY [facility] Interpretation and review of laboratory results Abnormal [facility] No Panel InformationOrdered By: Ankit Salas on 10-19-2024 P [place] 75 degrees [facility] [employer] Work Phone: NM Interval 127 ms [facility] Work Phone: QRS [place] 60 degrees [facility] Work Phone: QRSD Interval 77 ms [facility] [email or web address] Work Phone: QT Interval 362 ms [facility] Work Phone: QTC Interval 460 ms [facility] Work Phone: T Wave [place] 67 degrees [facility] Work Phone: [facility] Work Phone: Progress Noteon 10-19-2024 Progress Note Reviewed chart nidhi agarwal. Spoke with patient to clarify Lanmts doses at home. Was taking Lantus 30 units BID but has difficulty eating so limited Humalog. She would like to follow with Endo and would like Meka 3 plus OP. TE sent Increase Lantus to 22 units, ( would not give home doses of Lantus) continue other doses. Please give SS even if patient does not eat--added to order Nicolette Chun MSN,RN,ACNS-BC, CDCES (CDE) Clinical Nurse Specialist-Certified Diabetes Care and Chamber Worker [facility] Endocrinology Normal [facility] Vital signsOrdered By: Ramandeep Salas on 10-19-2024 Heart rate 97 /min bpm [facility] [employer] Work Phone: [phone] 10-18-2024 [id number] S/W consult to marybeth jansen with HCPOA paperwork. Met with patient at her bedside to provide a new HCPOA packet per her request. Patient states that her daughter are fighting right now and she is thinking that she will now want to name her youngest daughter and her brother. Patient was eating lunch but states she will think about this weekend and fill it out if she decides to change her other one. This worker check back in with patient on Monday if she is still here. Did share with patient that 2 people that are not blood related are able to witness the HCPOA if she completes it outside of the hospital. [facility] BASIC METABOLIC PANELon 09-28 Anion gap [Moles/Vol] 8 mmol/L Normal 3-13 [facility] Comment on above: Performed By: #### L AB15 ####Customer Relations Consultant: TELLO CERNA ([phone])[facility] (SBHLAB)[address] [place] [address] Calcium [Mass/Vol] 8.5 mg/dL Normal 8.4-10.2 [facility] Comment on above: Performed By: #### L AB15 ####Customer Relations Consultant: TELLO CERNA ([phone])[facility]ENTERAl[facility]ON (SBHLAB)[address] Chloride [Moles/Vol] 102 mmol/L Normal 98-107 [facility] Comment on above: Performed By: #### L AB15 ####Customer Relations Consultant: TELLO MARADIAGAERENDIRA ([phone])[facility] (SBHLAB)[address] CO2 [Moles/Vol] 23 mmol/L Normal 22-29 [facility] Comment on above: Performed By: #### L AB15 ####Customer Relations Consultant: TELLO MARADIAGAERENDIRA ([phone])[facility] (HLAB)[address] Creatinine [Mass/Vol] 0.66 mg/dL Normal 0.57-1.11 [facility] Comment on above: Performed By: #### L AB15 ####Customer Relations Consultant: TELLO DAMIANKURTIS ([phone])[facility] (SBHLAB)[address] GLOMERULAR FILTRATION RATE ML/MIN/1.73 SQ M.PREDICTED >90.0 Normal >60.0 [facility] Comment on above: Result Comment: Calc ulation based on the Chronic Kidney Disease Epidemiology Collaboration (CKD-EPI) equation refit without adjustment for race Performed By: #### L AB15 ####Customer Relations Consultant: TELLO CERNA ([phone])[facility] (SBHLAB)[address] Glucose [Mass/Vol] 289 mg/dL High 74-100 [facility] Comment on above: Performed By: #### L AB15 ####Customer Relations Consultant: TELLO DAMIANKURTIS ([phone])[facility] (HLAB)[address] Potassium [Moles/Vol] 3.7 mmol/L Normal 3.5-5.1 [facility] Comment on above: Result Comment: [facility] potassium values may be up to 0.5 mmol/L lower than serum values. Performed By: #### L AB15 ####Customer Relations Consultant: TELLO ASHWINIJose RafaelKURTIS ([phone])[facility] (SBHLAB)[address] [place] [address] Sodium [Moles/Vol] 133 mmol/L Low 136-145 [facility] Comment on above: Performed By: #### L AB15 ####Customer Relations Consultant: TELLO MARADIAGAERENDIRA ([phone])[facility] (SBHLAB)[address] Urea nitrogen [Mass/Vol] 11 mg/dL Normal 9-23 [facility] Comment on above: Performed By: #### L AB15 ####Customer Relations Consultant: TELLO NEHEMIAH ([phone])[facility] (SBHLAB)[address] [place] [address] Basic metabolic 1998 panelon 10-18-2024 Anion gap [Moles/Vol] 8 mmol/L 3 - 13 mmol/L [facility] Calcium [Mass/Vol] 8.5 mg/dL 8.4 - 10. 2 mg/dL [facility] Chloride [Moles/Vol] 102 mmol/L 98 - 10 7 mmol/L [facility] CO2 [Moles/Vol] 23 mmol/L 22 - 29 mmol/L [facility] Creatinine [Mass/Vol] 0.66 mg/dL 0.57 - 1.11 mg/dL [facility] GFR/1.73 sq M.predicted (S/P/Bld) [Vol rate/Area] - PINF [facility] Glucose [Mass/Vol] 289 mg/dL High 74 - 100 mg/dL [facility] Interpretation and review of laboratory results Abnormal [facility] Potassium [Moles/Vol] 3.7 mmol/L 3.5 - 5.1 mmol/L [facility] Sodium [Moles/Vol] 133 mmol/L Low 136 - 145 mmol/L [facility] Urea nitrogen [Mass/Vol] 11 mg/dL 9 - 23 mg/dL [facility] CBC (HEMOGRAM)on 10-18-2024 Erythrocyte distribution width (RBC) [Ratio] 13.0 % Normal 11.5-15.0 [facility] Comment on above: Performed By: #### L [id number] ####Customer Relations Consultant: TELLO MARADIAGAJose RafaelKURTIS ([phone])[facility]ENTERAlfonso ABELDAN[facility]HA ([facility] [place] [address] Hematocrit (Bld) [Volume fraction] 34.3 % Low 35.0-47.0 [facility] Comment on above: Performed By: #### L [id number] ####Customer Relations Consultant: TELLO NEHEMIAH ([phone])[facility] CENTERAlfonso [facility] ([facility])[address] Hemoglobin (Bld) [Mass/Vol] 11.5 g/dL Low 11.7-16.0 [facility] Comment on above: Performed By: #### L [id number] ####Customer Relations Consultant: TELLO NEHEMIAH ([phone])[facility] CENTERAlfonso [place] ([facility])[address] [place] [address] MCH (RBC) [Entitic mass] 28.0 pg Normal 26.0-34.0 [facility] Comment on above: Performed By: #### L [id number] ####Customer Relations Consultant: TELLO MARADIAGAJose RafaelKURTIS ([phone])[facility]ENTERAl[facility] [place] ([facility])[address] [place] [address] MCHC 33.5 % Normal 30.5-36.0 [facility] Comment on above: Performed By: #### L [id number] ####Customer Relations Consultant: TELLO DAMIANKURTIS ([phone])[facility]ENTERAlfonso [place] ([facility] [place] [address] MCV (RBC) [Entitic vol] 83.7 fL Normal 77.0-99.0 [facility] Comment on above: Performed By: #### L [id number] ####Customer Relations Consultant: TELLO CERNA ([phone])[facility] ([facility])[address] [place] [address] Platelet mean volume (Bld) [Entitic vol] 9.7 fL Normal 9.0-12.7 [facility] Comment on above: Performed By: #### L [id number] ####Customer Relations Consultant: TELLO MELENDEZCER ([phone])[facility]ENTERAlfonso [facility] (SBHLAB)[address] Platelets (Bld) [#/Vol] 287 10*3/uL Normal 140-440 [facility] Comment on above: Performed By: #### L [id number] ####Customer Relations Consultant: TELLO CERNA ([phone])[facility]ENTERAlfonso [facility] (SB[facility]AB)[address] RBC (Bld) [#/Vol] 4.10 10*6/uL Normal 3.80-5.20 [facility] Comment on above: Performed By: #### L [id number] ####Customer Relations Consultant: TELLO CERNA ([phone])[facility]ENTERAl[facility] [place] (SB[facility]AB)[address] [place] [address] WBC (Bld) [#/Vol] 9.6 10*3/uL Normal 3.6-10.7 [facility] Comment on above: Performed By: #### L [id number] ####Customer Relations Consultant: TELLO CERNA ([phone])[facility] (HLAB)[address] [place] [address] CBC panel Auto (Bld)on 10-18 Erythrocyte distribution width (RBC) [Ratio] 13 % 11.5 - 15.0 % [facility] Hematocrit (Bld) [Volume fraction] 34.3 % Low 35.0 - 47.0 % [facility] Hemoglobin (Bld) [Mass/Vol] 11.5 g/dL Low 11.7 - 16.0 g/dL [facility] Interpretation and review of laboratory results Abnormal [facility] MCH (RBC) [Entitic mass] 28 pg 26.0 - 34.0 pg [facility] MCHC (RBC) [Mass/Vol] 33.5 % 30.5 - 36.0 % [facility] MCV (RBC) [Entitic vol] 83.7 fL 77.0 - 99.0 fL [facility] Platelet mean volume (Bld) [Entitic vol] 9.7 fL 9.0 - 12.7 fL [facility] Platelets (Bld) [#/Vol] 287 10*3/uL 140 - 440 10*3/uL [facility] RBC (Bld) [#/Vol] 4.1 10*6/uL 3.80 - 5.20 10*6/uL [facility] WBC (Bld) [#/Vol] 9.6 10*3/uL 3.6 - 10.7 10*3/uL [facility] Laboratory - Chemistry and C hemistry - challengeon 10-18-2024 Glucose [Mass/Vol] 231 mg/dL High 70 - 100 mg/dL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 including diabetic neuropathy, sciatica, and restless leg syndrome that also affects her arms. Regarding her current medications, Puja reports discontinuing Seroquel due to excessive sedation. She expresses dissatisfaction with her current medication regimen, stating that Effexor is not effective for her depression. She has been using medical marijuana for anxiety, which she finds helpful, but reports it is less effective for pain management. Puja's psychosocial situation is notable for a history of homelessness and current financial instability. She reports living with a supportive partner. She is currently unemployed and has applied for disability due to her back issues, having had two lower lumbar surgeries and another slipped disc. Medication options were reviewed; Education performed on risks, benefits, side effects, expectations of treatment, importance of compliance, risks of declining treatment, as well as alternative treatments. Patient given ample time to ask questions and review any concerns. Collateral was obtained from the following individual: No Past Psychiatric History: Previous diagnoses: Bipolar Disorder, PTSD, HELENA The patient is currently receiving care for the above psychiatric illness with [facility]. Past/Current mental health outpatient care includes: psychiatry Previous psychiatric hospitalizations: none Previous suicide attempts:Denies History of self-injurious behavior:Denies History of violence:Denies Past psychiatric medications include: Seroquel, Effexor, Ativan REVIEW OF SYSTEMS: MEDICAL & PSYCHIATRIC REVIEW OF SYMPTOMS: All ROS was completed and was negative unless stated above Medications: Cur (more content not included)... Normal [facility] Consult Palliative Care Init ial Consult Chief Complaint: Puja Wyman is a 54 y.o. female with chief complaint of Dysphagia. Palliative Care is actively following. Assessment/Plan Goals of care Full Code Puja Wyman retains capacity for medical decision-making - patient's legal surrogate decision makers are at this time her 2 daughters - patient wants to complete HCPOA with her brother Garrison Escobedo([phone]) as her HCPOA and her daughter Christine Fernandez([phone]) as alternate agent - will request social human services assistants for assistance with HCPOA documentation -see subjective for details of conversation -Patient refused when offered to call her family. 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 -Patient wants to remain full code but does not want to be on group home life support. -Provided emotional support to patient. Will continue to follow and address goals of care. -goals of care include: 1) c/w current management. 2) improve and/or preserve as much QOL as possible. 3) utilize all available medical therapies necessary DKA Insulin Dependent Diabetes Mellitus Hyperglycemia -Mx by endrocrine -Humalog 8 units TID with meals -Humalog medium dose sliding scale ACHS -Lantus 10 units nightly Peripheral neuropathy -gabapention 400 mg TID Constipation -Patient reports history of gastroparesis and diffused abdominal pain. - Patient reports last bowel movement was over a week ago. -patient stats that the miralax is not helping her with her constipation. -Imaging make obstructions less likely. -start patient on Senna - S HTN -Mx via the primary team, -Currently on lisinopril 10 mg -metoprolol 25 mg Restless leg syndrome -Patient has a pmh significant for restless movement at night. -patient explained that restless movement interfers with her ability to sleep. -c/w Ropinrole 0.4 mg TID Nausea Pancreatic mass Abdominal pain -Patient has a pancreatic mass noted on CT 10/02/2024 -Biopsy was postive for malignant adenocarcinoma -Patient has abdominal pain that radiates to her back -Patient states that she ran out of medication last time she was discharge from the hospital and that her abdominal pain is one of the reasons she went to the ER. -Pallative med will continue to follow and provide emotional support and symptoms management. -Oncology consulted, recommendation pending -c/w Odesteron 4 mg PRN -Change paitent pain management to oxycodone every 4 hours. -discontinue paitent hydromorphone 0.5 mg given that patient is able to tolerate PO. -Will discharge with palliative medicine follow up to c/w outpatient pain management DVT prophylaxis -Enoxaparin 40 mg Dysphagia -Patient chief complaint was dysphagia -Patient said that she has trouble swallowing food and has pain with swallowing -Patient dysphagia is interferring with her ability to eat -Recommend Speech pathology consult to assess patient abilty to swallow. ?Bipolar disorder/acute guzman Anxiety -Patient has a hx of anxiety and bipolar disorder -Patient states that she used to be on seroquel for Bipolar disorder but stop taking it because it would make her confused and tired. -Patient was mildly elated during examination today. Was hard to tell if it was secondary to anxiety or guzman. - Currently patient is on effexor 50 mg. -Recommend psych consult to further manage patient psych needs Dibility -patient goal is to get back as much strength and perserve QOL as much as possible. -the patient explained that over the passed year she has loss a bunch of weight and muscle are diffusely weak. -patient said that she unable to performed ADLs and walk long distant and expressed fear of falling when no one around. -Patient current lives with boyfriend who works a lot. -Recommend pt evaluation of patient before discharge. Palliative Care Encounter -Code Status: Full Code - assessed patient or surrogate's understanding of medical condition, addressed goals of care pertinent to the condition and communicated this to the medical team PC Time Stamp: Total of 85 minutes spent on this encounter including Chart review, Patient visit and exam, Documentation in EHR, Care coordination, and Communicating with primary attending or other consultants. Discharge planning: Not ready for discharge due to ongoing medical work-up/critical illness Patient meets criteria for general inpatient hospice care: No Palliative Care IDT members involved: None Discussed the plan of care with the other interdisciplinary team (IDT) members of the Palliative Care and Hospice teams and Patient. Attending Supervision: I performed a history and physical examination of the patient and discussed his management with medical student Ramsey Vanegas. I was present for or performed myself denson components of history and physical exam. I reviewed their note and agree with the documented fin (more content not included)... Normal [facility] - Chemistry and C hemistry - challengeon 10-17-2024 Glucose [Mass/Vol] 289 mg/dL High 70 - 100 mg/dL [facility] Glucose [Mass/Vol] 107 mg/dL High 70 - 100 mg/dL [facility] Glucose [Mass/Vol] 106 mg/dL High 70 - 100 mg/dL [facility] Glucose [Mass/Vol] 265 mg/dL High 70 - 100 mg/dL [facility] Glucose [Mass/Vol] 268 mg/dL High 70 - 100 mg/dL [facility] No Panel Informationon 10-17 Interpretation and review of laboratory results Abnormal [facility] Interpretation and review of laboratory results Abnormal [facility] Interpretation and review of laboratory results Abnormal [facility] Interpretation and review of laboratory results Abnormal [facility] Interpretation and review of laboratory results Abnormal [facility] Progress Noteon 10-17-2024 Progress Note Nutrition Assessment Type and Reason for Visit: Positive Nutrition Screen, Initial Nutrition Recommendations/Plan: Continue Regular, 5 carbohydrate choices/75 g CHO per meal diet Encourage patient to participate in room service and order well balanced meals Per MNT protocol, added: Glucerna once daily (+220 kcal, 10 g protein, 240 mL/serving) Please document all oral intake in EMR for most accurate nutrient intake assessment As able, please obtain weekly standing scale weights for most accurate anthropometric data and calculation of macronutrient and fluid needs RDN to continue to monitor weekly: fluid accumulation, weight, skin integrity, trends in lab values, tolerance of PO and ONS, clinical status, discharge planning. Malnutrition Assessment: Malnutrition Status: Severe malnutrition Context: Chronic Illness Findings of the 6 clinical characteristics of malnutrition: Energy Intake: 75% or less estimated energy requirements for 1 month or longer Weight Loss: Mild weight loss (specify amount and time period) (-6.1% weight loss x5 months) Body Fat Loss: Mild body fat loss (MODERATE) Buccal region, Triceps, Orbital Muscle Mass Loss: Severe muscle mass loss Temples (temporalis), Clavicles (pectoralis & deltoids), Thigh (quadraceps) Fluid Accumulation: No significant fluid accumulation Hospital Monitor Strength: Measurable reduction in fittings tightener strength Nutrition Assessment: 54 year old woman with PMHx: anxiety and depression, COPD, DMII(A1C=13.5% 10/15/24) with neuropathy, HTN, RLS. Most recently admitted under observation to [facility] -10/04/[address] with abdominal pain[address] Underwent CT and RI of abdomen which showed a pancreatic mass. S/p EUS and FNA on 10/03 with preliminary cytology suggestive of carcinoma. Discharged home with plans to follow up with GI. She currently presents back to [facility] on evening of 10/15 with painful swallowing (unable to eat or take meds), upper abdominal pain that radiates into bilateral lower back, and intermittent chest pain that began on 10/14. Significant labs on admit: WBC(13), Na+(132), Gap(15), BGL(86), +Urine for glucose and ketones. Imaging on admit showed: ?5.5 cm solid pancreatic mass with some necrosis. The mass impressing mildly on the posterior wall of the stomach. No hepatic or pancreatic ductal dilatation. Bilateral renal cysts?. Admitted under DKA lite protocol and made NPO. On morning of 10/16 found eating a snack from her bag, refused to stay NPO. Later in the morning with large volume emesis (~1100) which she attributes to ?not eating?. Endocrinology consulted and supporting. Sitting up in bed at time of assessment, shared with RDN that she is unable to eat more than ?bites? at meals, and has been unable to consume a full meal without pain or significant GI discomfort. Describes pain and ?like my organs are pushing out from my ribs?. She also feels this intense discomfort when moving her bowels. She also reports her right foot begin stuck in a flexed position with shooting pain in her leg onoccasion. NFPE completed with consent, and agreeable to trying strawberry Glucerna- as she ?doesn?t like the chalky shakes?. Estimated Daily Nutrient Needs: Energy Requirements Based On: Kcal/kg Weight Used for Energy Requirements: [place] Weight for Energy Calculation (kg): 50 kg Total Energy Requirements (kcals/day): 9840-1958 (27-32 kcal/kg IBW) Weight Used for Protein Requirements: [place] Weight in Kg Used for Protein Requirements: 50 kg Estimated Total Protein (g/day): 60-75 (1.2-1.5 g protein/kg IBW) Estimated Daily Total Fluid (ml/day): per MD Nutrition Related Findings: A+Ox4. No skin breakdown or edema noted. Rafael score=19. +bm 10/11 with hyperactive BS. Meds: Lovenox, insulin, Neurontin, lisinopril, Lopressor. Labs: BGL(401->243->103->205->2 77->98->217->268), Na+(135), WBC(10.8). Wound Type: None Current Nutrition Therapies: Adult diet Regular; 5 carb choices (75 gm/meal) Current Oral Intake Average Meal Intake: 51-75%, 26-50% (per EMR) Anthropometric Measures: Height: 157.5 cm (5' 2) Current Body Weight: 53.5 kg (118 lb) Weight Source: Stated Admission Body Weight: 53.5 kg (118 lb) Usual Body Weight: 57 kg (125 lb 9.6 oz) (per EMR --> 140# 07/24/23; 125.6# 05/17/24) % Weight Change (Calculated): -6.1 [place] Body Weight (lbs) (Calculated): 110 lbs [place] Body Weight (Kg) (Calculated): 50 kg % [place] Body Weight (Calculated): 107.3 % BMI (kg/m2) (Calculated): 21.6 Weight Adjustment For: No Adjustment BMI Categories: Normal Weight (BMI 18.5-24.9) Nutrition Diagnosis: Severe malnutrition, In context of chronic illness related to inadequate protein-energy intake, altered GI function as evidenced by poor intake prior to admission, severe muscle loss Inadequate protein-energy intake related to altered GI function as evidenced by lab values, GI abnormality Nutrition Interventions: Nutrition Education/Counseling: Education not indicated (more content not included)... [facility] Progress Note Department of Consultant Technology al Medicine Division of Endocrinology, Diabetes, & Metabolism Endocrinology Note Patient Name: Puja Wyman : 1970 AGE: 54 y.o. Room/Bed: [facility] Admission Date: 10/15/2024 Visit Date: 10/17/2024 Reason for Endocrine Consult: DKA, IDDM, Hyperglycemia Provider/Team Requesting Consult: Dr. Rivera PCP: Donna Kumar DO Outpt Vacuum Cleaner Repairer: No ASSESSMENT: DKA Insulin Dependent Diabetes Mellitus Pancreatic Mass Abdominal pain Tachycardia PLAN: Lantus 12 units nightly Humalog 8 units TID with meals Humalog medium dose sliding scale ACHS ICU goal <180 GMF goal <150 POCT BG ACHS Hypoglycemia management per protocol Carb controlled diet ANTICIPATED ENDOCRINE HOME GOING RECOMMENDATIONS: Optimized for Discharge from Endocrine standpoint: Yes Home Going Endocrine Rx Recommendations-- Lantus - Dose to be determined Humalog - Dose to be determined Outpt Follow Up-- TBD SUBJECTIVE/HPI: CHIEF COMPLAINT: Chief Complaint Patient presents with Dysphagia Pt states that she has been having diffuculty swallowing due to pain for the last 3-4 months. Pt states that she was diagnosed with pancreatic cancer about 1 week ago. Reports her doctor is aware of this problem but she is unaware of whether a work up was done for that or not. Puja Wyman is a 54 yo female who presented to ED with abdominal pain, epigastric pain. Patient was diagnosed with Pancreatic cancer 1 week ago. Patient is presently on insulin and reports taking insulin but blood sugars still remain uncontrolled prior to admission. Reports she was taking insulin even if she wasn't eating but blood sugars were still elevated. Type of DM: 2 Onset of DM: 5 years ago Home DM Medication Regimen: Lantus 30 units BID AC Humalog 10 units TID AC DM control (last A1c/glucose data): Lab Results Component Value Date HGBA1C 13.5 (H) 10/15/2024 Interval history 10/27/2024 Bgls as below Up in room wiping all surfaces of bedside stand, States she is having abd pain and trying to keep busy by moving arpound in room Wants to do her hair Eating well Denies nausea , vomiting Glucose Date/Time Value Ref Range Status 10/17/2024 11:10 AM 265 (H) 70 - 100 mg/dL Final 10/17/2024 07:21 AM 268 (H) 70 - 100 mg/dL Final 10/16/2024 07:37 PM 217 (H) 70 - 100 mg/dL Final 10/16/2024 04:25 PM 98 70 - 100 mg/dL Final 10/16/2024 11:22 AM 277 (H) 70 - 100 mg/dL Final 10/16/2024 09:47 AM 205 (H) 70 - 100 mg/dL Final Complications: Cardiovascular -- No Statin Use -- No Nephropathy -- No AJAY/ARB Use -- No Obesity -- No Other -- Yes Pancreatic Mass Family history of dm: Both parents Hospitalized for DM: yes when initially diagnosed Home diet: Appetite reduced with fatigue in past week. Breakfast - Usually skips. Weekends - [employer] full breakfast Lunch - Not eating regularly Dinner - minimal intake recently Home exercise: NA Complications: Pancreatic mass Previously used medications: Steglatro 5 mg daily Glimepiride 4 mg daily Ozempic Farxiga Review of Systems Constitutional: Positive for fatigue. Respiratory: Negative for shortness of breath. Cardiovascular: Negative for chest pain. Gastrointestinal: Positive for abdominal pain and constipation. Neurological: Positive for weakness. ROS negative except for those mentioned in HPI. OBJECTIVE: Vitals: 10/17/24 0344 10/17/24 0719 10/17/24 0859 10/17/24 1109 BP: 154/86 148/100 139/94 BP Location: Right arm Right arm Right arm Patient Position: Sitting Sitting Lying Pulse: 65 88 81 Resp: Temp: (!) 35.8 ?C (96.4 ?F) (!) 35.9 ?C (96.7 ?F) 36.4 ?C (97.5 ?F) TempSrc: Temporal Temporal Temporal SpO2: 97% 99% 98% Weight: Height: 5' 2 (1.575 m) Physical Exam Vitals reviewed. Constitutional: General: She is not in acute distress. Appearance: Normal appearance. She is not ill-appearing, toxic-appearing or diaphoretic. HENT: Head: Normocephalic and atraumatic. Nose: Nose normal. Mouth/Throat: Mouth: Mucous membranes are moist. Eyes: General: No scleral icterus. Right eye: No discharge. Left eye: No discharge. Conjunctiva/sclera: Conjunctivae normal. Cardiovascular: Rate and Rhythm: Normal rate and regular rhythm. Pulses: Normal pulses. Heart sounds: Normal heart sounds. No murmur heard. Pulmonary: Effort: Pulmonary effort is normal. No respiratory distress. Musculoskeletal: Cervical back: Normal range of motion. Right lower leg: No edema. Left lower leg: No edema. Skin: General: Skin is warm. Neurological: General: No focal deficit present. Mental Status: She is alert and oriented to person, place, and time. Psychiatric: Mood and Affect: Mood normal. Behavior: Behavior normal. 24 hour intake/output: Intake/Output Summary (Last 24 hours) at 10/17/2024 1151 Last data filed at 10/17/2024 0929 Gross per 24 hour Intake (more content not included)... Normal [facility] BASIC METABOLIC PANELon 08-2 Anion gap [Moles/Vol] 10 mmol/L Normal 3-13 [facility] Comment on above: Performed By: #### L AB113, [id number], [id number], LAB15 ####Customer Relations Consultant: TELLO CERNA ([phone])[facility] (SBHLAB)[address] Calcium [Mass/Vol] 8.5 mg/dL Normal 8.4-10.2 [facility] Comment on above: Performed By: #### L AB113, [id number], [id number], LAB15 ####Customer Relations Consultant: TELLO CERNA ([phone])[facility] [place] ([facility])[address] Chloride [Moles/Vol] 104 mmol/L Normal 98-107 [facility] Comment on above: Performed By: #### L AB113, [id number], [id number], LAB15 ####Customer Relations Consultant: TELLO CERNA ([phone])[facility] ([facility])[address] CO2 [Moles/Vol] 24 mmol/L Normal 22-29 [facility] Comment on above: Performed By: #### L AB113, [id number], [id number], LAB15 ####Customer Relations Consultant: TELLO CERNA ([phone])[facility] ([facility])[address] Creatinine [Mass/Vol] 0.63 mg/dL Normal 0.57-1.11 [facility] Comment on above: Performed By: #### L AB113, SAD621, [id number], LAB15 ####Customer Relations Consultant: TELLO CERNA ([phone])[facility] ([facility])[address] GLOMERULAR FILTRATION RATE ML/MIN/1.73 SQ M.PREDICTED >90.0 Normal >60.0 [facility] Comment on above: Result Comment: Calc ulation based on the Chronic Kidney Disease Epidemiology Collaboration (CKD-EPI) equation refit without adjustment for race Performed By: #### L AB113, GDZ339, [id number], LAB15 ####Customer Relations Consultant: TELLO CERNA ([phone])[facility] [place] ([facility])[address] [place] [address] [place] Glucose [Mass/Vol] 233 mg/dL High 74-100 [facility] Comment on above: Performed By: #### L AB113, UIL877, SRW3555, LAB15 ####Customer Relations Consultant: TELLO CERNA ([phone])[facility] ([facility])[address] Potassium [Moles/Vol] 3.1 mmol/L Low 3.5-5.1 [facility] Comment on above: Result Comment: [facility] potassium values may be up to 0.5 mmol/L lower than serum values. Performed By: #### L AB113, MSK172, HAM6270, LAB15 ####Customer Relations Consultant: TELLO CERNA ([phone])[facility] ([facility])[address] Sodium [Moles/Vol] 138 mmol/L Normal 136-145 [facility] Comment on above: Performed By: #### L AB113, QYT811, DLQ2450, LAB15 ####Customer Relations Consultant: TELLO CENRA ([phone])[facility] ([facility])[address] Urea nitrogen [Mass/Vol] 12 mg/dL Normal 9-23 [facility] Comment on above: Performed By: #### L AB113, GCY376, [id number], LAB15 ####Customer Relations Consultant: TELLO CERNA ([phone])[facility] ([facility])[address] Anion gap [Moles/Vol] 13 mmol/L Normal 3-13 [facility] Comment on above: Performed By: #### L AB15, XQV618, LCD234, GKB1971 ####Customer Relations Consultant: TELLO CERNA ([phone])[facility] ([facility])[address] Calcium [Mass/Vol] 9.0 mg/dL Normal 8.4-10.2 [facility] Comment on above: Performed By: #### L AB15, ZVR999, JSJ440, JBF9575 ####Customer Relations Consultant: TELLO CERNA ([phone])[facility] (SBHLAB)[address] Chloride [Moles/Vol] 106 mmol/L Normal 98-107 [facility] Comment on above: Performed By: #### L AB15, URV993, GPN665, BYY6336 ####Customer Relations Consultant: TELLO CERNA ([phone])[facility] ([facility])[address] CO2 [Moles/Vol] 16 mmol/L Low 22-29 [facility] Comment on above: Performed By: #### L AB15, NHP245, VLU083, BWS1460 ####Customer Relations Consultant: TELLO CERNA ([phone])[facility] ([facility])[address] Creatinine [Mass/Vol] 0.72 mg/dL Normal 0.57-1.11 [facility] Comment on above: Performed By: #### L AB15, ZKI835, OHA428, GKW8753 ####Customer Relations Consultant: TELLO CERNA ([phone])[facility] ([facility])[address] GLOMERULAR FILTRATION RATE ML/MIN/1.73 SQ M.PREDICTED >90.0 Normal >60.0 [facility] Comment on above: Result Comment: Calc ulation based on the Chronic Kidney Disease Epidemiology Collaboration (CKD-EPI) equation refit without adjustment for race Performed By: #### L AB15, CWK306, YBC751, [id number] ####Customer Relations Consultant: TELLO CERNA ([phone])[facility]ENTER[facility] ([facility])[address] [place] [address] [place] Glucose [Mass/Vol] 279 mg/dL High 74-100 [facility] Comment on above: Performed By: #### L AB15, APY227, WRG794, JGF7574 ####Customer Relations Consultant: TELLO CERNA ([phone])[facility] ([facility])[address] Potassium [Moles/Vol] 3.6 mmol/L Normal 3.5-5.1 [facility] Comment on above: Result Comment: [facility] potassium values may be up to 0.5 mmol/L lower than serum values. Performed By: #### L AB15, YVT075, YMJ874, EMG6188 ####Customer Relations Consultant: TELLO CERNA ([phone])[facility] ([facility])[address] Sodium [Moles/Vol] 135 mmol/L Low 136-145 [facility] Comment on above: Performed By: #### L AB15, LPU507, VAX358, PTM3861 ####Customer Relations Consultant: TELLO CERNA ([phone])[facility] ([facility])[address] Urea nitrogen [Mass/Vol] 14 mg/dL Normal 9-23 [facility] Comment on above: Performed By: #### L AB15, RPX460, UNB836, SFJ5087 ####Customer Relations Consultant: TELLO CERNA ([phone])[facility] ([facility])[address] BETA HYDROXYBUTYRATEon 10-16 BETA HYDROXYBUTYRATE 2.9 mg/dL High <=2.8 [facility] Comment on above: Performed By: #### L AB113, SCN055, NJC3114, LAB15 ####Customer Relations Consultant: TELLO CERNA ([phone])[facility] ([facility])[address] BETA HYDROXYBUTYRATE 1.1 mg/dL Normal <=2.8 [facility] Comment on above: Performed By: #### L AB15, ZCA765, OOB444, BLV9646 ####Customer Relations Consultant: TELLO CERNA ([phone])[facility] (SBHLAB)[address] BLOOD GAS, VENOUSon 10-17-19 25 AMOUNT OF OXYGEN 0 Normal [facility] Comment on above: Result Comment: CARLOS Carmona COMMENTS: Assessment of oxygenation is best done with an arterial blood gas determination. Reference ranges for pO2, bicarbonate, and base excess are for mixed venous blood. Specimens drawn from a peripheral vein will often have higher values. Performed By: #### L [id number] ####Customer Relations Consultant: TELLO CERNA ([phone])[facility] [place] (SBHLAB)[address] Base excess Calc (BldV) [Moles/Vol] -1.7000 mmol/L Normal -3.0-3.0 [facility] Comment on above: Performed By: #### L [id number] ####Customer Relations Consultant: TELLO CERNA ([phone])[facility] (SB[facility])[address] CO2 [Moles/Vol] 26.3 mmol/L Normal 23.0-30.0 [facility] Comment on above: Performed By: #### L [id number] ####Customer Relations Consultant: TELLO CERNA ([phone])[facility] (SBHLAB)[address] HCO3 (Bld) [Moles/Vol] 24.8 mmol/L Normal 21.0-30.0 [facility] Comment on above: Performed By: #### L [id number] ####Customer Relations Consultant: TELLO CERNA ([phone])[facility] [place] (SBHLAB)[address] [place] [address] [place] Hemoglobin (Bld) [Mass/Vol] 13.0 g/dL Normal Screen only [facility] Comment on above: Performed By: #### L [id number] ####Customer Relations Consultant: TELLO CERNA ([phone])[facility] (SB[facility])[address] OXYGEN (MM HG) IN VENOUS BLOOD 24.7 mm Hg Normal [facility] Comment on above: Performed By: #### L [id number] ####Customer Relations Consultant: TELLO CERNA ([phone])[facility]ENTER[facility] [place] (SBHLAB)[address] OXYGEN SATURATION (%) IN VENOUS BLOOD 40.2 % Normal [facility] Comment on above: Performed By: #### L [id number] ####Customer Relations Consultant: TELLO CERNA ([phone])[facility]ENTERAl[facility] (SBHLAB)[address] PCO2, JACI 49.1 mm Hg Normal 35.0-53.0 [facility] Comment on above: Performed By: #### L [id number] ####Customer Relations Consultant: TELLO CERNA ([phone])[facility] (SBHLAB)[address] PH VENOUS 7.321 Normal 7.320-7.42 0 [facility] Comment on above: Performed By: #### L [id number] ####Customer Relations Consultant: TELLO CERNA ([phone])[facility] [place] (SBHLAB)[address] SOURCE OF OXYGEN None (Room Air) Normal [facility] Comment on above: Performed By: #### L [id number] ####Customer Relations Consultant: TELLO CERNA ([phone])[facility] (HLAB)[address] [place] [address] AMOUNT OF OXYGEN 0 Normal [facility] Comment on above: Result Comment: CARLOS Carmona COMMENTS: Assessment of oxygenation is best done with an arterial blood gas determination. Reference ranges for pO2, bicarbonate, and base excess are for mixed venous blood. Specimens drawn from a peripheral vein will often have higher values. Performed By: #### L [id number] ####Customer Relations Consultant: TELLO CERNA ([phone])[facility]ENTERAl[facility] (SBHLAB)[address] Base excess Calc (BldV) [Moles/Vol] -13.50738 mmol/L Low -3.0-3.0 [facility] Comment on above: Performed By: #### L [id number] ####Customer Relations Consultant: TELLO CERNA ([phone])[facility] [place] (SBHLAB)[address] [place] [address] [place] CO2 [Moles/Vol] 12.7 mmol/L Low 23.0-30.0 [facility] Comment on above: Performed By: #### L [id number] ####Customer Relations Consultant: TELLO CERNA ([phone])[facility] [place] (SBHLAB)[address] HCO3 (Bld) [Moles/Vol] 11.9 mmol/L Low 21.0-30.0 [facility] Comment on above: Performed By: #### L [id number] ####Customer Relations Consultant: TELLO CERNA ([phone])[facility] [place] (SBHLAB)[address] Hemoglobin (Bld) [Mass/Vol] 6.7 g/dL Critically low Screen only [facility] Comment on above: Performed By: #### L [id number] ####Customer Relations Consultant: TELLO CERNA ([phone])[facility] [place] (SBHLAB)[address] OXYGEN (MM HG) IN VENOUS BLOOD 22.8 mm Hg Normal [facility] Comment on above: Performed By: #### L [id number] ####Customer Relations Consultant: TELLO CERNA ([phone])[facility] [place] (SBHLAB)[address] OXYGEN SATURATION (%) IN VENOUS BLOOD 37.2 % Normal [facility] Comment on above: Performed By: #### L [id number] ####Customer Relations Consultant: TELLO CERNA ([phone])[facility] [place] (SBHLAB)[address] [place] [address] [place] PCO2, JACI 26.2 mm Hg Low 35.0-53.0 [facility] Comment on above: Performed By: #### L [id number] ####Customer Relations Consultant: TELLO CERNA ([phone])[facility] [place] (SBHLAB)[address] [place] [address] [place] PH VENOUS 7.274 Low 7.320-7.42 0 [facility] Comment on above: Performed By: #### L [id number] ####Customer Relations Consultant: TELLO CERNA ([phone])[facility]ENTERAlfonso [place] (SBHLAB)[address] SOURCE OF OXYGEN None (Room Air) Normal [facility] Comment on above: Performed By: #### L [id number] ####Customer Relations Consultant: TELLO CERNA ([phone])[facility]ENTERAl[facility]so [place]ARROB[place]u (SBHLAB)[address] AMOUNT OF OXYGEN room air Normal [facility] Comment on above: Result Comment: CARLOS Carmona COMMENTS: Assessment of oxygenation is best done with an arterial blood gas determination. Reference ranges for pO2, bicarbonate, and base excess are for mixed venous blood. Specimens drawn from a peripheral vein will often have higher values. Performed By: #### L [id number] ####Customer Relations Consultant: TELLO CERNA ([phone])[facility]ENTERAlfonso NAVARROBinu (SBHLAB)[address] [place] [address] Base excess Calc (BldV) [Moles/Vol] -3.7000 mmol/L Low -3.0-3.0 [facility] Comment on above: Performed By: #### L [id number] ####Customer Relations Consultant: TELLO CERNA ([phone])[facility]ENTERAlfonso ABELCARLSBAD [facility]ICAL CENTERBinu (SBHLAB)[address] [place] [address] CO2 [Moles/Vol] 22.4 mmol/L Low 23.0-30.0 [facility] Comment on above: Performed By: #### L [id number] ####Customer Relations Consultant: TELLO CERNA ([phone])[facility]ENTERAlfonso [facility] (SBHLAB)[address] HCO3 (Bld) [Moles/Vol] 21.3 mmol/L Normal 21.0-30.0 [facility] Comment on above: Performed By: #### L [id number] ####Customer Relations Consultant: TELLO CERNA ([phone])[facility] [place] (SBHLAB)[address] Hemoglobin (Bld) [Mass/Vol] 13.6 g/dL Normal Screen only [facility] Comment on above: Performed By: #### L [id number] ####Customer Relations Consultant: TELLO CERNA ([phone])[facility] [place] (SBHLAB)[address] OXYGEN (MM HG) IN VENOUS BLOOD 46.5 mm Hg Normal [facility] Comment on above: Performed By: #### L [id number] ####Customer Relations Consultant: TELLO CERNA ([phone])[facility] (SBHLAB)[address] OXYGEN SATURATION (%) IN VENOUS BLOOD 80.3 % Normal [facility] Comment on above: Performed By: #### L [id number] ####Customer Relations Consultant: TELLO CERNA ([phone])[facility] (SBHLAB)[address] PCO2, JACI 38.5 mm Hg Normal 35.0-53.0 [facility] Comment on above: Performed By: #### L [id number] ####Customer Relations Consultant: TELLO CERNA ([phone])[facility] CENTERAlfonso [facility] (SBHLAB)[address] PH VENOUS 7.360 Normal 7.320-7.42 0 [facility] Comment on above: Performed By: #### L [id number] ####Customer Relations Consultant: TELLO CERNA ([phone])[facility] (SBHLAB)[address] SOURCE OF OXYGEN None (Room Air) Normal [facility] Comment on above: Performed By: #### L AB79 ####Customer Relations Consultant: TELLO CERNA ([phone])[facility] [place] (SBHLAB)[address] [place] [address] [place] AMOUNT OF OXYGEN room air Normal [facility] Comment on above: Result Comment: CARLOS Carmona COMMENTS: Assessment of oxygenation is best done with an arterial blood gas determination. Reference ranges for pO2, bicarbonate, and base excess are for mixed venous blood. Specimens drawn from a peripheral vein will often have higher values. Performed By: #### L [id number] ####Customer Relations Consultant: TELLO CERNA ([phone])[facility] [place] (SBHLAB)[address] Base excess Calc (BldV) [Moles/Vol] -3.5000 mmol/L Low -3.0-3.0 [facility] Comment on above: Performed By: #### L [id number] ####Customer Relations Consultant: TELLO CERNA ([phone])[facility] (SBHLAB)[address] CO2 [Moles/Vol] 23.9 mmol/L Normal 23.0-30.0 [facility] Comment on above: Performed By: #### L [id number] ####Customer Relations Consultant: TELLO CERNA ([phone])[facility] (SBHLAB)[address] HCO3 (Bld) [Moles/Vol] 22.6 mmol/L Normal 21.0-30.0 [facility] Comment on above: Performed By: #### L [id number] ####Customer Relations Consultant: TELLO CERNA ([phone])[facility] (SBHLAB)[address] Hemoglobin (Bld) [Mass/Vol] 13.3 g/dL Normal Screen only [facility] Comment on above: Performed By: #### L [id number] ####Customer Relations Consultant: TELLO CERNA ([phone])[facility] (SB[facility]AB)[address] OXYGEN (MM HG) IN VENOUS BLOOD 24.9 mm Hg Normal [facility] Comment on above: Performed By: #### L [id number] ####Customer Relations Consultant: TELLO CRENA ([phone])[facility] (SBHLAB)[address] OXYGEN SATURATION (%) IN VENOUS BLOOD 41.1 % Normal [facility] Comment on above: Performed By: #### L [id number] ####Customer Relations Consultant: TELLO CERNA ([phone])[facility]ENTERAlfonso [place] (SBHLAB)[address] PCO2, JACI 44.5 mm Hg Normal 35.0-53.0 [facility] Comment on above: Performed By: #### L [id number] ####Customer Relations Consultant: TELLO CERNA ([phone])[facility]ENTERAl[facility]so [place] (SBHLAB)[address] PH VENOUS 7.323 Normal 7.320-7.42 0 [facility] Comment on above: Performed By: #### L [id number] ####Customer Relations Consultant: TELLO CERNA ([phone])[facility] CENTERAlfonso ABELDANISHA (SBHLAB)[address] SOURCE OF OXYGEN None (Room Air) Normal [facility] Comment on above: Performed By: #### L [id number] ####Customer Relations Consultant: TELLO CERNA ([phone])[facility] CENTERAlfonso [facility] (SBHLAB)[address] Basic metabolic 1998 panelon 10-16-2024 Anion gap [Moles/Vol] 10 mmol/L 3 - 13 mmol/L [facility] Calcium [Mass/Vol] 8.5 mg/dL 8.4 - 10. 2 mg/dL [facility] Chloride [Moles/Vol] 104 mmol/L 98 - 10 7 mmol/L [facility] CO2 [Moles/Vol] 24 mmol/L 22 - 29 mmol/L [facility] Creatinine [Mass/Vol] 0.63 mg/dL 0.57 - 1.11 mg/dL [facility] GFR/1.73 sq M.predicted (S/P/Bld) [Vol rate/Area] - PINF [facility] Glucose [Mass/Vol] 233 mg/dL High 74 - 100 mg/dL [facility] Potassium [Moles/Vol] 3.1 mmol/L Low 3.5 - 5.1 mmol/L [facility] Sodium [Moles/Vol] 138 mmol/L 136 - 145 mmol/L [facility] Urea nitrogen [Mass/Vol] 12 mg/dL 9 - 23 mg/dL [facility] Anion gap [Moles/Vol] 13 mmol/L 3 - 13 mmol/L [facility] Calcium [Mass/Vol] 9 mg/dL 8.4 - 10. 2 mg/dL [facility] Chloride [Moles/Vol] 106 mmol/L 98 - 10 7 mmol/L [facility] CO2 [Moles/Vol] 16 mmol/L Low 22 - 29 mmol/L [facility] Creatinine [Mass/Vol] 0.72 mg/dL 0.57 - 1.11 mg/dL [facility] GFR/1.73 sq M.predicted (S/P/Bld) [Vol rate/Area] - PINF [facility] Glucose [Mass/Vol] 279 mg/dL High 74 - 100 mg/dL [facility] Interpretation and review of laboratory results Abnormal [facility] Potassium [Moles/Vol] 3.6 mmol/L 3.5 - 5.1 mmol/L [facility] Sodium [Moles/Vol] 135 mmol/L Low 136 - 145 mmol/L [facility] Urea nitrogen [Mass/Vol] 14 mg/dL 9 - 23 mg/dL [facility] COMPLETE URINALYSIS WITH REF DIANN TO [facility] 10-16-2024 BILIRUBIN, TOTAL PRESENCE IN URINE Negative Normal Negative [facility] Comment on above: Performed By: #### L [id number] ####Customer Relations Consultant: TELLO CERNA ([phone])[facility] ([facility])[address] [place] [address] Clarity (U) Clear Normal Clear [facility] Comment on above: Performed By: #### L [id number] ####Customer Relations Consultant: TELLO CERNA ([phone])[facility] ([facility])[address] [place] [address] Color (U) Light Yellow Normal Lt. Yellow [facility] Comment on above: Performed By: #### L [id number] ####Customer Relations Consultant: ETLLO CERNA ([phone])[facility] (SBHLAB)[address] GLUCOSE (MG/DL) IN URINE >1,000 Abnormal Normal (<70) [facility] Comment on above: Performed By: #### L [id number] ####Customer Relations Consultant: TELLO CERNA ([phone])[facility] (SBHLAB)[address] HEMOGLOBIN PRESENCE IN URINE Negative Normal Negative [facility] Comment on above: Performed By: #### L [id number] ####Customer Relations Consultant: TELLO CERNA ([phone])[facility] (SBHLAB)[address] Ketones Ql (U) 40 mg/dL Abnormal Negative [facility] Comment on above: Performed By: #### L [id number] ####Customer Relations Consultant: TELLO CERNA ([phone])[facility] LEUKOCYTE ESTERASE PRESENCE IN URINE BY TEST STRIP Negative Normal Negative [facility] Comment on above: Performed By: #### L [id number] ####Customer Relations Consultant: TELLO CERAN ([phone])[facility] NITRITE PRESENCE IN URINE Negative Normal Negative [facility] Comment on above: Performed By: #### L [id number] ####Customer Relations Consultant: TELLO CERNA ([phone])[facility] (SBHLAB)[address] pH (U) 5.5 [pH] Normal 5.0-8.0 [facility] Comment on above: Performed By: #### L [id number] ####Customer Relations Consultant: TELLO CERNA ([phone])[facility] (SBHLAB)[address] Protein (U) [Mass/Vol] Negative Normal Negative [facility] Comment on above: Performed By: #### L [id number] ####Customer Relations Consultant: TELLO CERNA ([phone])[facility] (SBHLAB)[address] [place] [address] Specific gravity (U) [Rel density] >1.030 High 1.005-1.03 0 [facility] Comment on above: Result Comment: CARLOS Carmona COMMENTS: A specimen with <=10 WBC is not consistent with inflammation. This specimen will not reflex to a urine culture. Performed By: #### L [id number] ####Customer Relations Consultant: TELLO CERNA ([phone])[facility] (SBHLAB)[address] [place] [address] UROBILINOGEN (MG/DL) IN URINE Normal Normal Normal (0-1) [facility] Comment on above: Performed By: #### L [id number] ####Customer Relations Consultant: TELLO CERNA ([phone])[facility] (SBHL)[address] [place] [address] CT ABDOMEN PELVIS W CONTRAST on 10-16-2024 CT ABDOMEN PELVIS W CONTRAST Patient Name: PUJA WYMAN : 1970 Exam Date/Time: 10/15/2024 23:47 Procedure: CT ABDOMEN PELVIS W CONTRAST Ordering Provider: WILLIAMSON SAMANTHA Reason For Exam: Abdominal pain, acute, nonlocalized; Diffuse epigastric abd pain, hx pancreatic mass, FNA last week, worsening pain CLINICAL INFORMATION: Abdominal pain extending into the pelvis. Recent diagnosis of pancreatic cancer. CT ABDOMEN: 3 mm axial cuts are obtained from the dome of the liver through the iliac crests with 75 mL Isovue IV contrast. Dose reduction was employed with automated exposure control. The examination is compared to a previous study dated 10/02/2024. FINDINGS: A 5.5 cm solid but necrotic-appearing mass is redemonstrated involving the tail of the pancreas. This mildly indents the posterior wall of the stomach. The pancreatic duct is not dilated. The lung bases are included on the examination and demonstrate no focal infiltrates or effusions. The heart size is within normal limits. The liver is essentially homogeneous in its attenuation without focal abnormality. There is no intra or extra hepatic biliary dilatation. The spleen is normal in size. Both adrenal glands are normal. Both kidneys are identified in their cortical phase. Renal cysts are noted bilaterally. The largest measures 2 cm on the right. There is no evidence of hydronephrosis or hydroureter. No free fluid is seen within the abdomen. IMPRESSION: 1. 5.5 cm solid pancreatic mass. This demonstrates some necrosis. The mass is seen to impress mildly on the posterior wall of the stomach. 2. No hepatic or pancreatic ductal dilatation. 3. Bilateral renal cysts. These require no further imaging. CT PELVIS: 3 mm axial cuts are obtained from the iliac crests through the symphysis pubis with 75 mL Isovue IV contrast. Dose reduction was employed with automated exposure control. The examination is compared to a previous study dated 10/02/2024. FINDINGS: There are nondistended loops of small bowel. Air and stool are identified within the colon to the level of the rectum. There is no evidence of obstruction. The distal ureters and bladder are normal. No free fluid is seen within the pelvis. Sagittal reconstructed images of the spine demonstrate a Grade I/II spondylolisthesis L4 on L5. The slip is approximately 1 cm. The patient is status post L5-S1 fusion. IMPRESSION: 1. 5.5 cm solid pancreatic mass. This demonstrates some necrosis. The mass is seen to impress mildly on the posterior wall of the stomach. 2. No hepatic or pancreatic ductal dilatation. 3. Bilateral renal cysts. These require no further imaging. Report Dictated on Electronically Signed By: Deep Vogel MD Electronically Signed Date/Time: 10/16/2024 12:17 AM EDT Table formatting from the original note was not included. Pt states that she has been having diffuculty swallowing due to pain for the last 3-4 months. Pt states that she was diagnosed with pancreatic cancer about 1 week ago. Reports her doctor is aware of this problem but she is unaware of whether a work up was done for that or not. Normal [facility] CT Abdomen and Pelvis W cont rast Katya 10-16-2024 [facility] CT Abdomen and Pelvis W cont rast IVOrdered By: Deep Vogel on 10-16-2024 Serious Parody Work Phone: Consulton 10-16-2024 Consult Department of Consultant Technology al Medicine Division of Endocrinology, Diabetes, & Metabolism Endocrinology Note Patient Name: Puja Wyman : 1970 AGE: 54 y.o. Room/Bed: [facility] B Admission Date: 10/15/2024 Visit Date: 10/16/2024 Reason for Endocrine Consult: DKA, IDDM, Hyperglycemia Provider/Team Requesting Consult: Dr. Rivera PCP: Donna Kumar, DO Outpt Vacuum Cleaner Repairer: No ASSESSMENT: DKA Insulin Dependent Diabetes Mellitus Pancreatic Mass Abdominal pain Tachycardia PLAN: Anion Gap Closed as of 10/16 at 04:35 BHB: 2.9 Bicarb: 24 Current orders: Humalog 8 units TID with meals Humalog medium dose sliding scale ACHS Lantus 10 units nightly Continue current doses until we identify trends with blood glucose. ICU goal <180 GMF goal <150 POCT BG ACHS Hypoglycemia management per protocol Carb controlled diet ANTICIPATED ENDOCRINE HOME GOING RECOMMENDATIONS: Optimized for Discharge from Endocrine standpoint: No Home Going Endocrine Rx Recommendations-- Lantus - Dose to be determined Humalog - Dose to be determined Outpt Follow Up-- TBD SUBJECTIVE/HPI: CHIEF COMPLAINT: Chief Complaint Patient presents with Dysphagia Pt states that she has been having diffuculty swallowing due to pain for the last 3-4 months. Pt states that she was diagnosed with pancreatic cancer about 1 week ago. Reports her doctor is aware of this problem but she is unaware of whether a work up was done for that or not. Puja Wyman is a 54 yo female who presented to ED with abdominal pain, epigastric pain. Patient was diagnosed with Pancreatic cancer 1 week ago. Patient is presently on insulin and reports taking insulin but blood sugars still remain uncontrolled prior to admission. Reports she was taking insulin even if she wasn't eating but blood sugars were still elevated. Type of DM: 2 Onset of DM: 5 years ago Home DM Medication Regimen: Lantus 30 units BID AC Humalog 10 units TID AC DM control (last A1c/glucose data): Lab Results Component Value Date HGBA1C 13.5 (H) 10/15/2024 Interval history: Patient alert and oriented lying in bed Reports epigastric and abdominal pain RN reports patient vomiting and not eating dinner. - Scheduled insulin held and Endocrinology notified. Reports she was advised to increase doses until blood sugars were controlled. She reports blood sugars were still running in the 200s or higher at home. Glucose Date/Time Value Ref Range Status 10/16/2024 04:25 PM 98 70 - 100 mg/dL Final 10/16/2024 11:22 AM 277 (H) 70 - 100 mg/dL Final 10/16/2024 09:47 AM 205 (H) 70 - 100 mg/dL Final 10/16/2024 06:25 AM 103 (H) 70 - 100 mg/dL Final 10/16/2024 04:33 AM 243 (H) 70 - 100 mg/dL Final 10/16/2024 02:13 AM 401 (H) 70 - 100 mg/dL Final Complications: Cardiovascular -- No Statin Use -- No Nephropathy -- No AJAY/ARB Use -- No Obesity -- No Other -- Yes Pancreatic Mass Family history of dm: Both parents Hospitalized for DM: yes when initially diagnosed Home diet: Appetite reduced with fatigue in past week. Breakfast - Usually skips. Weekends - [employer] full breakfast Lunch - Not eating regularly Dinner - minimal intake recently Home exercise: NA Complications: Pancreatic mass Previously used medications: Steglatro 5 mg daily Glimepiride 4 mg daily Ozempic Farxiga Review of Systems Constitutional: Positive for fatigue. Respiratory: Negative for shortness of breath. Cardiovascular: Negative for chest pain. Gastrointestinal: Positive for abdominal pain and constipation. Neurological: Positive for weakness. ROS negative except for those mentioned in HPI. OBJECTIVE: Vitals: 10/16/24 0027 10/16/24 0142 10/16/24 0646 10/16/24 0829 BP: (!) 146/93 138/88 135/73 BP Location: Left arm Left arm Patient Position: Lying Lying Pulse: 95 93 70 Resp: 16 18 18 Temp: (!) 35.8 ?C (96.4 ?F) TempSrc: SpO2: 100% 100% 99% Weight: 118 lb (53.5 kg) Physical Exam Vitals reviewed. Constitutional: General: She is not in acute distress. Appearance: Normal appearance. She is not ill-appearing, toxic-appearing or diaphoretic. HENT: Head: Normocephalic and atraumatic. Nose: Nose normal. Mouth/Throat: Mouth: Mucous membranes are moist. Eyes: General: No scleral icterus. Right eye: No discharge. Left eye: No discharge. Conjunctiva/sclera: Conjunctivae normal. Cardiovascular: Rate and Rhythm: Normal rate and regular rhythm. Pulses: Normal pulses. Heart sounds: Normal heart sounds. No murmur heard. Pulmonary: Effort: Pulmonary effort is normal. No respiratory distress. Musculoskeletal: Cervical back: Normal range of motion. Right lower leg: No edema. Left lower leg: No edema. Skin: General: Skin is warm. Neurological: General: No focal deficit present. Mental Status: She is alert and oriented to person, place, and time. Psychiatric: Mood and Affect: Mood nor (more content not included)... Normal [facility] ECG 12-LEADon 10-16-2024 ECG 12-LEAD IMPRESSION: Sinus rhythm Compared to ECG 10/02/24 No significant change Electronically Signed On 10-16-2024 05:43:53 EDT by Ernesto Bacon Normal [facility] HIGH SENSITIVITY TROPONIN, S ERIAL BASELINEon 10-16-2024 TROPONIN HS SERIAL BASELINE 6 ng/L Normal <=14 [facility] Comment on above: Result Comment: In i ndividuals presenting with symptoms > 2h, a baseline troponin <= 5 ng/L suggests acute cardiac injury is unlikely and further serial testing is generally not indicated. Performed By: #### L [id number] ####Customer Relations Consultant: TELLO CERNA ([phone])[facility] ([facility])[address] [place] [address] HIGH SENSITIVITY TROPONIN, S ERIAL, SECOND TESTon 10-16-2024 2H TROPONIN HS (SERIAL 2ND TROPONIN) 5 ng/L Normal <=14 [facility] Comment on above: Result Comment: Risi ng or falling troponin delta below 2 ng/L as compared to baseline value suggests that acute cardiac injury is unlikely. Performed By: #### L [id number] ####Customer Relations Consultant: TELLO CERNA ([phone])[facility] ([facility])[address] [place] [address] Laboratory - Chemistry and C hemistry - challengeon 10-16-2024 Glucose [Mass/Vol] 217 mg/dL High 70 - 100 mg/dL [facility] Glucose [Mass/Vol] 98 mg/dL 70 - 100 mg/dL [facility] Glucose [Mass/Vol] 277 mg/dL High 70 - 100 mg/dL [facility] Average glucose Estimated from glycated hemoglobin (Bld) [Mass/Vol] 341 mg/dL [facility] Beta hydroxybutyrate [Mass/Vol] 2.9 mg/dL High NINF - 2.8 mg/dL [facility] Magnesium [Mass/Vol] 1.5 mg/dL Low 1.6 - 2 .6 mg/dL [facility] Base excess Calc (BldV) [Moles/Vol] -1.7000 mmol/L -3.0 - 3.0 mmol/L [facility] CO2 (BldV) [Partial pressure] 49.1 mm[Hg] [facility] CO2 [Moles/Vol] 26.3 mmol/L 23.0 - 30.0 mmol/L [facility] HCO3 (Bld) [Moles/Vol] 24.8 mmol/L 21.0 - 30.0 mmol/L [facility] Oxygen (BldV) [Partial pressure] 24.7 mm[Hg] mm Hg [facility] pH (BldV) 7.321 [pH] 7.320 - 7.420 [facility] Glucose [Mass/Vol] 205 mg/dL High 70 - 100 mg/dL [facility] Glucose [Mass/Vol] 103 mg/dL High 70 - 100 mg/dL [facility] Beta hydroxybutyrate [Mass/Vol] 1.1 mg/dL NINF - 2.8 mg/dL [facility] Magnesium [Mass/Vol] 1.6 mg/dL 1.6 - 2 .6 mg/dL [facility] Base excess Calc (BldV) [Moles/Vol] -3.7000 mmol/L Low -3.0 - 3.0 mmol/L [facility] CO2 (BldV) [Partial pressure] 38.5 mm[Hg] [facility] CO2 [Moles/Vol] 22.4 mmol/L Low 23.0 - 30.0 mmol/L [facility] HCO3 (Bld) [Moles/Vol] 21.3 mmol/L 21.0 - 30.0 mmol/L [facility] Oxygen (BldV) [Partial pressure] 46.5 mm[Hg] mm Hg [facility] pH (BldV) 7.36 [pH] 7.320 - 7.420 [facility] Glucose [Mass/Vol] 243 mg/dL High 70 - 100 mg/dL [facility] Glucose [Mass/Vol] 401 mg/dL High 70 - 100 mg/dL [facility] Base excess Calc (BldV) [Moles/Vol] -3.5000 mmol/L Low -3.0 - 3.0 mmol/L [facility] CO2 (BldV) [Partial pressure] 44.5 mm[Hg] [facility] CO2 [Moles/Vol] 23.9 mmol/L 23.0 - 30.0 mmol/L [facility] HCO3 (Bld) [Moles/Vol] 22.6 mmol/L 21.0 - 30.0 mmol/L [facility] Oxygen (BldV) [Partial pressure] 24.9 mm[Hg] mm Hg [facility] pH (BldV) 7.323 [pH] 7.320 - 7.420 [facility] Laboratory - Chemistry and C hemistry - challengeOrdered By: Lelia Bruno on 10-16-2024 Base excess Calc (BldV) [Moles/Vol] -13.69532 mmol/L Low -3.0 - 3.0 mmol/L [facility] CO2 (BldV) [Partial pressure] 26.2 mm[Hg] Low [facility] CO2 [Moles/Vol] 12.7 mmol/L Low 23.0 - 30.0 mmol/L [facility] HCO3 (Bld) [Moles/Vol] 11.9 mmol/L Low 21.0 - 30.0 mmol/L [facility] Oxygen (BldV) [Partial pressure] 22.8 mm[Hg] mm Hg [facility] pH (BldV) 7.274 [pH] Low 7.320 - 7.420 [facility] Laboratory - Hematology and Cell countson 10-16-2024 HbA1c (Bld) [Mass fraction] 13.5 % High NINF [facility] Hemoglobin (Bld) [Mass/Vol] 13 g/dL 12.0 - 16.0 g/dl [facility] Hemoglobin (Bld) [Mass/Vol] 13.6 g/dL 12.0 - 16.0 g/dl [facility] Hemoglobin (Bld) [Mass/Vol] 13.3 g/dL 12.0 - 16.0 g/dl [facility] Laboratory - Hematology and Cell countsOrdered By: Lelia Bruno on 10-16-2024 Hemoglobin (Bld) [Mass/Vol] 6.7 g/dL Critically low 12.0 - 16.0 g/dl [facility] MAGNESIUMon 10-16-2024 Magnesium [Mass/Vol] 1.5 mg/dL Low 1.6-2.6 [facility] Comment on above: Result Comment: CARLOS Carmona COMMENTS: Higher values can be expected in females during menses. Performed By: #### L [id number], [id number], [id number], LAB15 ####Customer Relations Consultant: TELLO CERNA ([phone])[facility] ([facility])[address] [place] [address] Magnesium [Mass/Vol] 1.6 mg/dL Normal 1.6-2.6 [facility] Comment on above: Result Comment: CARLOS Carmona COMMENTS: Higher values can be expected in females during menses. Performed By: #### L AB15, [id number], [id number], [id number] ####Customer Relations Consultant: TELLO CERNA ([phone])[facility] ([facility])[address] [place] [address] Magnesium [Mass/Vol]on 10-16 [facility] No Panel Informationon 10-16 Interpretation and review of laboratory results Abnormal [facility] Interpretation and review of laboratory results Normal [facility] Interpretation and review of laboratory results Abnormal [facility] Interpretation and review of laboratory results Abnormal [facility] Interpretation and review of laboratory results Abnormal [facility] Amount Of Oxygen 0 [facility] Source Of Oxygen None (Room Air) [facility] Interpretation and review of laboratory results Abnormal [facility] Interpretation and review of laboratory results Abnormal [facility] P [place] 80 degrees [facility] NM Interval 121 ms [facility] QRS [place] 64 degrees [facility] QRSD Interval 77 ms [facility] QT Interval 382 ms [facility] QTC Interval 458 ms [facility] T Wave [place] 66 degrees [facility] CV EPIPHANY [facility] Interpretation and review of laboratory results Normal [facility] Amount Of Oxygen room air [facility] alth Interpretation and review of laboratory results Abnormal [facility] Source Of Oxygen None (Room Air) [facility] Interpretation and review of laboratory results Abnormal [facility] 2h Troponin HS (Serial 2nd Troponin) 5 ng/L NINF - 14 ng/L [facility] Interpretation and review of laboratory results Normal [facility] Interpretation and review of laboratory results Abnormal [facility] Interpretation and review of laboratory results Normal [facility] Troponin HS Serial Baseline 6 ng/L NINF - 14 ng/L [facility] Amount Of Oxygen room air [facility] alth Interpretation and review of laboratory results Abnormal [facility] Source Of Oxygen None (Room Air) [facility] No Panel InformationOrdered By: Lelia Bruno on 10-16-2024 Amount Of Oxygen 0 [facility] alth Interpretation and review of laboratory results Abnormal [facility] Source Of Oxygen None (Room Air) [facility] Nursing Noteon 10-16-2024 Nursing Note Patient had large am ount of emesis. Patient refusing to be NPO and said that not eating caused her to vomit. Alen Rivera MD made aware. [facility] Nursing Note Patient found to be eating snack from her bag. Patient reminded that she is NPO and educated on importance of staying NPO. Patient is AxO4 Alen Rivera MD made aware Normal [facility] PHOSPHORUSon 10-16-2024 Phosphate [Mass/Vol] 3.3 mg/dL Normal 2.3-4.7 [facility] Comment on above: Performed By: #### L [id number], [id number], [id number], LAB15 ####Customer Relations Consultant: TELLO CERNA ([phone])[facility] ([facility])[address] [place] [address] Phosphate [Mass/Vol] 3.1 mg/dL Normal 2.3-4.7 [facility] Comment on above: Performed By: #### L AB15, [id number], [id number], [id number] ####Customer Relations Consultant: TELLO CERNA ([phone])[facility] ([facility])[address] [id number] [facility] Phosphate [Moles/Vol]on 09-28 Interpretation and review of laboratory results Normal [facility] Phosphate [Mass/Vol] 3.3 mg/dL 2.3 - 4 .7 mg/dL [facility] Phosphate [Mass/Vol] 3.1 mg/dL 2.3 - 4 .7 mg/dL [facility] Progress Noteon 10-16-2024 Progress Note Please review night patient's H&P for today's notes. Admitted for DKA was on light protocol. DKA resolved. Currently patient is on regular diet tolerating well, denies any nausea or vomitings Insulin home regimen resumed, endocrinology consulted. Patient also has a history of a pancreatic mass, both palliative and oncology consulted-Will follow-up on the recommendations. Follow-up CBC BMP ordered. Normal [facility] Progress Note I met with Puja on [facility] this morning to introduce myself and role of support in her care, providing my contact information. Puja was wearing an eye covering and had ear buds in, as she stated she is trying to block everything out. She engaged easily in conversation, tearful while sharing that she came into the ED with generalized pain, but most specifically in her abdominal area. Eating a little helps to make her stomach hurt a little less. She is aware of her diagnosis of pancreatic cancer, and was referred up to [facility]. She went to , and while there talked to the office on the phone, and was told that she did not have an appointment. She believed she was seeing a hepatobiliary surgeon. She shared that she has limited support at home. She lives with her significant other who works 16 hours per day, and she is not close with her children. Active listening and support provided. I did discuss patient with palliative care, as patient would benefit from symptom relief. Normal [facility] Urinalysis complete panel (U )Ordered By: Jag Ortiz on 10-16-2024 Bilirubin Ql (U) Negative Negative mg/dL [facility] Clarity (U) Clear Clear [facility] Color (U) Light Yellow Lt. Yellow [facility] Glucose Ql (U) >1,000 Abnormal Normal (<70) mg/dL [facility] Hemoglobin Ql (U) Negative Negative mg/dL [facility] Interpretation and review of laboratory results Abnormal [facility] Ketones (U) [Mass/Vol] 40 mg/dL Abnormal Negative [facility] Leukocyte esterase Test strip Ql (U) Negative Negative Monty/uL [facility] Nitrite Ql (U) Negative Negative [facility] th pH (U) 5.5 [pH] 5.0 - 8.0 pH [facility] Protein (U) [Mass/Vol] Negative Negat alyce mg/dL [facility] Specific gravity (U) [Rel density] High 1.005 - 1.030 [facility] Urobilinogen (U) [Mass/Vol] Normal Normal (0-1) mg/dL [facility] Vital signson 10-16-2024 Oxygen saturation in Venous blood 40.2 % [facility] Heart rate 86 /min bpm [facility] Oxygen saturation in Venous blood 80.3 % [facility] Oxygen saturation in Venous blood 41.1 % [facility] Vital signsOrdered By: Bhargavi Bruno on 10-16-2024 Oxygen saturation in Venous blood 37.2 % [facility] BETA HYDROXYBUTYRATEon 10-15 BETA HYDROXYBUTYRATE 16.7 mg/dL High <=2.8 [facility] Comment on above: Performed By: #### L [id number], LAB99, LAB17 ####Customer Relations Consultant: TELLO CERNA ([phone])[facility] ([facility])[address] [place] [address] CBC W Auto Differential pane l (Bld)on 10-15-2024 Basophils (Bld) [#/Vol] 0.1 10*3/uL 0.0 - 0.2 10*3/uL [facility] Basophils/100 WBC (Bld) 1.1 % 0.0 - 2.0 % [facility] Eosinophils (Bld) [#/Vol] 0.3 10*3/uL 0.0 - 0.5 10*3/uL [facility] Eosinophils/100 WBC (Bld) 1.9 % 0.0 - 6.0 % [facility] Erythrocyte distribution width (RBC) [Ratio] 13.3 % 11.5 - 15.0 % [facility] Hematocrit (Bld) [Volume fraction] 41.5 % 35.0 - 47.0 % [facility] Hemoglobin (Bld) [Mass/Vol] 13.7 g/dL 11.7 - 16.0 g/dL [facility] Immature granulocytes (Bld) [#/Vol] 0 10*3/uL NINF - 0.1 10*3/uL [facility] Immature granulocytes/100 WBC (Bld) 0.3 % 0.0 - 2.0 % [facility] Interpretation and review of laboratory results Abnormal [facility] Lymphocytes (Bld) [#/Vol] 3.6 10*3/uL 1.0 - 4.3 10*3/uL [facility] Lymphocytes/100 WBC (Bld) 27.7 % 15.0 - 45.0 % [facility] MCH (RBC) [Entitic mass] 27.5 pg 26.0 - 34.0 pg [facility] MCHC (RBC) [Mass/Vol] 33 % 30.5 - 36.0 % [facility] MCV (RBC) [Entitic vol] 83.2 fL 77.0 - 99.0 fL [facility] Monocytes (Bld) [#/Vol] 1 10*3/uL High 0.0 - 0.9 10*3/uL [facility] Monocytes/100 WBC (Bld) 7.5 % 5.0 - 13.0 % [facility] Neutrophils (Bld) [#/Vol] 8 10*3/uL High 1.8 - 7.5 10*3/uL [facility] Neutrophils/100 WBC (Bld) 61.5 % 38.0 - 82.0 % [facility] Nucleated RBC/100 WBC (Bld) [Ratio] 0 % [facility] Platelet mean volume (Bld) [Entitic vol] 10 fL 9.0 - 12.7 fL [facility] Platelets (Bld) [#/Vol] 363 10*3/uL 140 - 440 10*3/uL [facility] RBC (Bld) [#/Vol] 4.99 10*6/uL 3.80 - 5.20 10*6/uL [facility] WBC (Bld) [#/Vol] 13 10*3/uL High 3.6 - 10.7 10*3/uL [facility] CBC WITH AUTO DIFFERENTIALon 10-15-2024 Basophils (Bld) [#/Vol] 0.1 10*3/uL Normal 0.0-0.2 [facility] Comment on above: Performed By: #### L [id number] ####Customer Relations Consultant: TELLO CERNA ([phone])[facility] ([facility])[address] Basophils/100 WBC (Bld) 1.1 % Normal 0.0-2.0 [facility] Comment on above: Performed By: #### L [id number] ####Customer Relations Consultant: TELLO CERNA ([phone])[facility])[address] [place] [address] Eosinophils (Bld) [#/Vol] 0.3 10*3/uL Normal 0.0-0.5 [facility] Comment on above: Performed By: #### L [id number] ####Customer Relations Consultant: TELLO CERNA ([phone])[facility])[address] Eosinophils/100 WBC (Bld) 1.9 % Normal 0.0-6.0 [facility] Comment on above: Performed By: #### L [id number] ####Customer Relations Consultant: TELLO CERNA ([phone])[facility] Erythrocyte distribution width (RBC) [Ratio] 13.3 % Normal 11.5-15.0 [facility] Comment on above: Performed By: #### L [id number] ####Customer Relations Consultant: TELLO CERNA ([phone])[facility])[address] [place] [address] Hematocrit (Bld) [Volume fraction] 41.5 % Normal 35.0-47.0 [facility] Comment on above: Performed By: #### L [id number] ####Customer Relations Consultant: TELLO MARADIAGAJose RafaelKURTIS ([phone])[facility] ([facility])[address] Hemoglobin (Bld) [Mass/Vol] 13.7 g/dL Normal 11.7-16.0 [facility] Comment on above: Performed By: #### L [id number] ####Customer Relations Consultant: TELLO DAMIANKURTIS ([phone])[facility] ([facility])[address] IMMATURE GRANS % 0.3 % Normal 0.0-2.0 [facility] Comment on above: Performed By: #### L [id number] ####Customer Relations Consultant: TELLO MARADIAGAJose RafaelKURTIS ([phone])[facility])[address] IMMATURE GRANS ABSOLUTE 0.0 10*3/uL Normal <0.1 [facility] Comment on above: Performed By: #### L [id number] ####Customer Relations Consultant: TELLO DAMIANKURTIS ([phone])[facility])[address] Lymphocytes (Bld) [#/Vol] 3.6 10*3/uL Normal 1.0-4.3 [facility] Comment on above: Performed By: #### L [id number] ####Customer Relations Consultant: TELLO DAMIANKURTIS ([phone])[facility] ([facility])[address] Lymphocytes/100 WBC (Bld) 27.7 % Normal 15.0-45.0 [facility] Comment on above: Performed By: #### L [id number] ####Customer Relations Consultant: TELLO MELENDEZCER ([phone])[facility] ([facility])[address] MCH (RBC) [Entitic mass] 27.5 pg Normal 26.0-34.0 [facility] Comment on above: Performed By: #### L [id number] ####Customer Relations Consultant: TELLO MARADIAGAJose RafaelKURTSI ([phone])[facility] [place] ([facility])[address] MCHC 33.0 % Normal 30.5-36.0 [facility] Comment on above: Performed By: #### L [id number] ####Customer Relations Consultant: TELLO NEHEMIAH ([phone])[facility] [place] ([facility])[address] MCV (RBC) [Entitic vol] 83.2 fL Normal 77.0-99.0 [facility] Comment on above: Performed By: #### L [id number] ####Customer Relations Consultant: TELLO NEHEMIAH ([phone])[facility] [place] ([facility])[address] [place] [address] Monocytes (Bld) [#/Vol] 1.0 10*3/uL High 0.0-0.9 [facility] Comment on above: Performed By: #### L [id number] ####Customer Relations Consultant: TELLO MARADIAGAERENDIRA ([phone])[facility] [place] ([facility])[address] Monocytes/100 WBC (Bld) 7.5 % Normal 5.0-13.0 [facility] Comment on above: Performed By: #### L [id number] ####Customer Relations Consultant: TELLO CERNA ([phone])[facility] [place] ([facility])[address] NEUTROPHILS ABSOLUTE 8.0 10*3/uL High 1.8-7.5 [facility] Comment on above: Performed By: #### L [id number] ####Customer Relations Consultant: TELLO DAMIANKURTIS ([phone])[facility] [place] ([facility])[address] Neutrophils/100 WBC (Bld) 61.5 % Normal 38.0-82.0 [facility] Comment on above: Performed By: #### L [id number] ####Customer Relations Consultant: TELLO MELENDEZCER ([phone])[facility]ENTERAlfonso [place] ([facility])[address] NRBC 0.0 /100 WBCs Normal 0.0-2.0 [facility] Comment on above: Performed By: #### L [id number] ####Customer Relations Consultant: TELLO NEHEMIHA ([phone])[facility]ENTERAlfonso [facility] ([facility])[address] Platelet mean volume (Bld) [Entitic vol] 10.0 fL Normal 9.0-12.7 [facility] Comment on above: Performed By: #### L [id number] ####Customer Relations Consultant: TELLOBJ CERNA ([phone])[facility]ENTERAlfonso [facility] ([facility])[address] Platelets (Bld) [#/Vol] 363 10*3/uL Normal 140-440 [facility] Comment on above: Performed By: #### L [id number] ####Customer Relations Consultant: TELLO NEHEMIAH ([phone])[facility]ENTERAlfon[facility] ([facility])[address] RBC (Bld) [#/Vol] 4.99 10*6/uL Normal 3.80-5.20 [facility] Comment on above: Performed By: #### L [id number] ####Customer Relations Consultant: TELLO DAMIANKURTIS ([phone])[facility]ENTERAlfonso [facility] ([facility])[address] WBC (Bld) [#/Vol] 13.0 10*3/uL High 3.6-10.7 [facility] Comment on above: Performed By: #### L [id number] ####Customer Relations Consultant: TELLO MARADIAGAERENDIRA ([phone])[facility]ENTERAlfonso [facility] ([facility])[address] COMPREHENSIVE METABOLIC PANE Flex 10-15-2024 Albumin [Mass/Vol] 3.4 g/dL Low 3.5-5.0 [facility] Comment on above: Performed By: #### Krystyna STEPHENS, LAB99, LAB17 ####Customer Relations Consultant: TELLO CERNA ([phone])[facility]ENTERAlfonso [place] ([facility])[address] ALP [Catalytic activity/Vol] 141 U/L Normal 40-150 [facility] Comment on above: Performed By: #### Krystyna STEPHENS, LAB99, LAB17 ####Customer Relations Consultant: TELLO CERNA ([phone])[facility] ([facility])[address] ALT [Catalytic activity/Vol] 12 U/L Normal <30 [facility] Comment on above: Performed By: #### Krystyna STEPHENS, LAB99, LAB17 ####Customer Relations Consultant: TELLO CERNA ([phone])[facility] CENTERAlfonso [facility] (SBHLAB)[address] Anion gap [Moles/Vol] 15 mmol/L High 3-13 [facility] Comment on above: Performed By: #### Krystyna STEPHENS, LAB99, LAB17 ####Customer Relations Consultant: TELLO CERNA ([phone])[facility] CENTERAlfonso [facility] (SBHL[facility])[address] AST [Catalytic activity/Vol] 14 U/L Normal <34 [facility] Comment on above: Performed By: #### Kyrstyna STEPHENS, LAB99, LAB17 ####Customer Relations Consultant: TELLO CERNA ([phone])[facility] CENTERAlfonso [facility] (SBHL[facility])[address] Bilirubin [Mass/Vol] 0.3 mg/dL Normal <1.2 [facility] Comment on above: Performed By: #### Krystyna STEPHENS, LAB99, LAB17 ####Customer Relations Consultant: TELLO CERNA ([phone])[facility]ENTERAlfonso [facility] (SB[facility])[address] Calcium [Mass/Vol] 9.6 mg/dL Normal 8.4-10.2 [facility] Comment on above: Performed By: #### Krystyna ALCARAZ6, LAB99, LAB17 ####Customer Relations Consultant: TELLO CERNA ([phone])[facility] CENTERAlfonso [place]ON (SBHLAB)[address] Chloride [Moles/Vol] 101 mmol/L Normal 98-107 [facility] Comment on above: Performed By: #### Krystyna ALCARAZ6, LAB99, LAB17 ####Customer Relations Consultant: TELLO CERNA ([phone])[facility] CENTERAlfonso [facility] (SBHLAB)[address] CO2 [Moles/Vol] 16 mmol/L Low 22-29 [facility] Comment on above: Performed By: #### Krystyna ALCARAZ6, LAB99, LAB17 ####Customer Relations Consultant: TELLO CERNA ([phone])[facility] (SBHLAB)[address] Creatinine [Mass/Vol] 0.99 mg/dL Normal 0.57-1.11 [facility] Comment on above: Performed By: #### Krystyna STEPHENS, LAB99, LAB17 ####Customer Relations Consultant: TELLO CERNA ([phone])[facility] (SBHLAB)[address] GLOMERULAR FILTRATION RATE ML/MIN/1.73 SQ M.PREDICTED 67.5 mL/min/1.73m*2 Normal >60.0 [facility] Comment on above: Result Comment: Calc ulation based on the Chronic Kidney Disease Epidemiology Collaboration (CKD-EPI) equation refit without adjustment for race Performed By: #### Krystyna STEPHENS, LAB99, LAB17 ####Customer Relations Consultant: TELLO CERNA ([phone])[facility] (SBHLAB)[address] [place] [address] [place] Glucose [Mass/Vol] 486 mg/dL Critically high 74-100 [facility] Comment on above: Performed By: #### Krystyna ALCARAZ6, LAB99, LAB17 ####Customer Relations Consultant: TELLO CERNA ([phone])[facility] (SBHLAB)[address] Potassium [Moles/Vol] 4.2 mmol/L Normal 3.5-5.1 [facility] Comment on above: Result Comment: [facility] potassium values may be up to 0.5 mmol/L lower than serum values. Performed By: #### L [id number], LAB99, LAB17 ####Customer Relations Consultant: TELLO CERNA ([phone])[facility] (SBHLAB)[address] Protein [Mass/Vol] 7.2 g/dL Normal 6.4-8.3 [facility] Comment on above: Performed By: #### L [id number], LAB99, LAB17 ####Customer Relations Consultant: TELLO CERNA ([phone])[facility] ([facility] Sodium [Moles/Vol] 132 mmol/L Low 136-145 [facility] Comment on above: Performed By: #### L [id number], LAB99, LAB17 ####Customer Relations Consultant: TELLO CERNA ([phone])[facility] ([facility])[address] [place] [address] Urea nitrogen [Mass/Vol] 21 mg/dL Normal 9-23 [facility] Comment on above: Performed By: #### L [id number], LAB99, LAB17 ####Customer Relations Consultant: TELLO CERNA ([phone])[facility] (SBHLAB)[address] [place] [address] CT Abdomen and Pelvis W cont rast Katya 10-15-2024 Radiology Study observation (narrative) [facility] Comprehensive metabolic 1998 panelOrdered By: Wyatt Middleton on 10-15-2024 Albumin [Mass/Vol] 3.4 g/dL Low 3.5 - 5.0 g/dL [facility] ALP [Catalytic activity/Vol] 141 U/L 40 - 150 U/L [facility] ALT [Catalytic activity/Vol] 12 U/L NINF - 30 U/L [facility] Anion gap [Moles/Vol] 15 mmol/L High 3 - 13 mmol/L [facility] AST [Catalytic activity/Vol] 14 U/L NINF - 34 U/L [facility] Bilirubin [Mass/Vol] 0.3 mg/dL NINF - 1.2 mg/dL [facility] Calcium [Mass/Vol] 9.6 mg/dL 8.4 - 10. 2 mg/dL [facility] Chloride [Moles/Vol] 101 mmol/L 98 - 10 7 mmol/L [facility] CO2 [Moles/Vol] 16 mmol/L Low 22 - 29 mmol/L [facility] Creatinine [Mass/Vol] 0.99 mg/dL 0.57 - 1.11 mg/dL [facility] GFR/1.73 sq M.predicted (S/P/Bld) [Vol rate/Area] 67.5 mL/min - PINF [facility] Glucose [Mass/Vol] 486 mg/dL Critically high 74 - 1 00 mg/dL [facility] Interpretation and review of laboratory results Abnormal [facility] Potassium [Moles/Vol] 4.2 mmol/L 3.5 - 5.1 mmol/L [facility] Protein [Mass/Vol] 7.2 g/dL 6.4 - 8.3 g/dL [facility] Sodium [Moles/Vol] 132 mmol/L Low 136 - 145 mmol/L [facility] Urea nitrogen [Mass/Vol] 21 mg/dL 9 - 23 mg/dL [facility] ED Provider Noteon ED Provider Note Emergency Department Encounter [facility] ED Patient: Puja Wyman : 1970 Date of Evaluation: 10/15/2024 ED NELY Provider: Margoth Williamson PA-C EDcare was supervised by Dr. Holman who independently examined and evaluated the patient. Please see their attestation note for further details. Chief Complaint: Chief Complaint Patient presents with Dysphagia Pt states that she has been having diffuculty swallowing due to pain for the last 3-4 months. Pt states that she was diagnosed with pancreatic cancer about 1 week ago. Reports her doctor is aware of this problem but she is unaware of whether a work up was done for that or not. History of Present Illness: Puja Wyman is a 54 y.o. female with past medical history of pancreatic cancer who presented to the emergency department for evaluation of pain with eating and drinking. States that she has been having a lot of epigastric abdominal pain since Monday, states she ran out of her pain medications, and missed her appointment with the specialist at . Patient states that she is unable to eat and drink because the pain is so bad. Has not been taking her diabetes medications.. Nursing notes were reviewed. Limitations to history: Outside historians: Review of Systems: Positives and pertinent negatives as per HPI. All other systems were reviewed and are acutely negative except as noted. Past History: Medical History[1] Surgical History[2] Social History[3] Medications/Allergies: Current Discharge Medication List CONTINUE these medications which have NOT CHANGED Details cyclobenzaprine (Flexeril) 5 MG tablet Take 5 mg by mouth 2 times daily as needed. gabapentin (Neurontin) 400 MG capsule Take 400 mg by mouth 3 times daily. lisinopril 10 MG tablet Take 10 mg by mouth daily. metoprolol tartrate (Lopressor) 25 MG tablet Take 25 mg by mouth 2 times daily. venlafaxine (Effexor) 50 MG tablet Take 50 mg by mouth. celecoxib (CeleBREX) 100 MG capsule Take 100 mg by mouth 2 times daily. insulin glargine (Lantus) 100 UNIT/ML injection Inject 30 Units under the skin 2 times daily. One dose in the morning and one nightly Insulin Lispro (Humalog) 100 UNIT/ML solution injection Inject 10 Units under the skin 3 times daily (with meals). oxybutynin (Ditropan) 5 MG tablet Take 5 mg by mouth 3 times a day. rOPINIRole (Requip) 1 MG tablet Take 1 mg by mouth. 1 tablet in AM and 2 tablet nightly Allergies[4] Physical Exam: ED Triage Vitals Temp Heart Rate Resp BP 10/15/24214210/15/24214210/15/24214210/15/242142 36.3 ?C (97.4 ?F) (!) 135 16 (!) 152/107 SpO2 Temp Source Heart Rate Source Patient Position 10/15/24214210/15/24214210/15/24214210/16/24 0027 99 % Temporal Monitor Lying BP Location FiO2 (%) 10/16/24 0027 -- Left arm Physical Exam Vitals and nursing note reviewed. Constitutional: General: She is not in acute distress. Appearance: She is well-developed. HENT: Head: Normocephalic and atraumatic. Eyes: Conjunctiva/sclera: Conjunctivae normal. Cardiovascular: Rate and Rhythm: Normal rate and regular rhythm. Heart sounds: No murmur heard. Pulmonary: Effort: Pulmonary effort is normal. No respiratory distress. Breath sounds: Normal breath sounds. Abdominal: Palpations: Abdomen is soft. Tenderness: There is abdominal tenderness. Musculoskeletal: General: No swelling. Cervical back: Neck supple. Skin: General: Skin is warm and dry. Capillary Refill: Capillary refill takes less than 2 seconds. Neurological: Mental Status: She is alert. Psychiatric: Mood and Affect: Mood normal. Screenings: Carmen Coma Scale Best Eye Response: Spontaneous Best Verbal Response: Oriented Best Motor Response: Follows commands Carmen Coma Scale Score: 15 Patients symptoms are consistent with sepsis, severe sepsis, or septic shock (If yes use .sepsiscoremeasure): Diagnostics: Labs: Labs Reviewed CBC WITH AUTO DIFFERENTIAL - Abnormal Result Value Auto WBC 13.0 (*) RBC 4.99 Hemoglobin 13.7 Hematocrit 41.5 MCV 83.2 MCH 27.5 MCHC 33.0 RDW 13.3 Platelets 363 MPV 10.0 nRBC 0.0 Neutrophils Relative 61.5 Lymphocytes Relative 27.7 Monocytes Relative 7.5 Eosinophils Relative 1.9 Basophils Relative 1.1 Immature Grans % 0.3 Neutrophils Absolute 8.0 (*) Lymphocytes Absolute 3.6 Monocytes Absolute 1.0 (*) Eosinophils Absolute 0.3 Basophils Absolute 0.1 Immature Grans Absolute 0.0 COMPREHENSIVE METABOLIC PANEL - Abnormal SODIUM 132 (*) POTASSIUM 4.2 CHLORIDE 101 CARBON DIOXIDE 16 (*) ANION GAP 15 (*) UREA NITROGEN 21 CREATININE 0.99 GLUCOSE 486 (*) CALCIUM 9.6 AST (SGOT) 14 ALT 12 ALKALINE PHOSPHATASE 141 ALBUMIN 3.4 (*) BILIRUBIN, TOTAL 0.3 TOTAL PROTEIN 7.2 eGFR 67.5 COMPLETE URINALYSIS WITH REFLEX TO CULTURE - Abnormal Color, Urine Light Yellow Clarity, Urine Clear pH, Urine 5.5 Leukocytes, Urine Neg (more content not included)... Normal [facility] ED Provider Note Emergency Department Encounter [facility] ED Patient: Puja Wyman : 1970 Date of Evaluation: 10/15/2024 ED Supervising Physician: Wyatt Holman MD I personally evaluated Puja Wyman and made/approved the management plan and take responsibility for the patient management. This will serve as my Supervisory note and shared attestation. I did perform a substantive portion of the visit including all aspects of the Medical Decision Making. I wore appropriate PPE for the entirety of this encounter. In brief, Puja Wyman is a 54 y.o. that presents to the emergency department for evaluation of painful swallowing, upper abdominal pain that radiates into the back near the kidneys (patient indicates bilateral lower back), and intermittent chest pain yesterday and into today. Reports that she has a history of diabetes with poorly controlled blood sugars, blood sugar typically in the 200-250 range. He is unaware of ever having DKA in the past. Recently learned that she had pancreatic cancer during previous admission. Focused exam: Awake, alert, appears uncomfortable but in no acute distress. Skin is warm, dry, intact. Tachycardic with normal heart sounds. Normal respiratory rate and effort. Tender to palpation over the left anterior chest wall with no palpable abnormalities. Overlying skin appears normal. Normal respiratory rate and effort. Normal lung sounds. Abdomen is soft, nondistended, nontender. Extremities unremarkable. No CVA tenderness bilaterally. Brief ED course/MDM: Patient presents for evaluation of of painful swallowing, upper abdominal pain rating to the back, and intermittent chest pain as described in the HPI. Recently diagnosed with pancreatic cancer. Patient was found to have elevated blood glucose. CMP significant for glucose of 46, anion gap of 15, and bicarb of 16. Beta hydroxybutyrate was added and is elevated indicating DKA. Lactic acid levels not elevated. White blood cell count is elevated 13.0 but no other significant arrangements on CBC. EKG per my interpretation shows sinus rhythm with no ST elevation, depression, arrhythmia, ectopy, or abnormal intervals. High-sensitivity troponin is 6. Repeat pending. Minimal suspicion for ACS given these results. Patient admitted for further evaluation and management. We did initiate insulin, hypoglycemia protocol, and IV fluids in the ED. Dilaudid administered for pain control. Diagnostics interpreted by me: CT scan(s) noted tumor burden similar to previous imaging. No evidence of acute abdominal pelvic pathology. EKG; see my interpretation elsewhere in the chart I personally discussed the patient's management with other clinicians: Admitting team BRINA Duffy All diagnostic, treatment, and disposition decisions were made by myself in conjunction with the Resident. I also supervised denson portions of any procedures performed by the Resident. For all further details of the patient's emergency department visit, please see their documentation. (Comment: Please note this report has been produced using speech recognition software and may contain errors related to that system including errors in grammar, punctuation, and spelling, as well as words and phrases that may be inappropriate. If there are any questions or concerns please feel free to contact the dictating provider for clarification.) Wyatt Holman MD [facility] Wyatt Holman MD 10/16/24 0203 Normal [facility] HEMOGLOBIN A1Con 10-15-2024 Glucose [Mass/Vol] 341 mg/dL Normal [facility] Comment on above: Result Comment: CARLOS Carmona COMMENTS: If not done within the last 3 mos HbA1c values of 5.7-6.4 percent indicate an increased risk for developing diabetes mellitus. HbA1c values greater than or equal to 6.5 percent are diagnostic of diabetes mellitus. For diagnosis of diabetes in individuals without unequivocal hyperglycemia, results should be confirmed by repeat testing. Performed By: #### L AB90 ####Customer Relations Consultant: TELLO CERNA ([phone])[facility] ([facility])[address] [place] [address] HEMOGLOBIN A1C 13.5 %HbA1C High <5.7 [facility] Comment on above: Result Comment: Norm al less than 5.7% Prediabetes 5.7% to 6.4% Diabetes 6.5% or higher --HgbA1C levels may not be accurate in patients who have renal disease, received recent blood transfusions, are anemic, or who have dyshemoglobinemia. Performed By: #### L AB90 ####Customer Relations Consultant: TELLO CERNA ([phone])[facility] ([facility])[address] [place] [address] LACTIC ACID WITH REFLEXon Lactate [Moles/Vol] 1.0 mmol/L Normal 0.5-2.2 [facility] Comment on above: Performed By: #### L [id number] ####Customer Relations Consultant: TELLO CERNA ([phone])[facility] (SBHLAB)[address] LIPASEon 10-15-2024 Lipase [Catalytic activity/Vol] 13 U/L Normal <55 [facility] Comment on above: Performed By: #### L [id number], LAB99, LAB17 ####Customer Relations Consultant: TELLO CERNA ([phone])[facility] (SBHLAB)[address] Laboratory - Chemistry and C hemistry - challengeon 10-15-2024 Beta hydroxybutyrate [Mass/Vol] 16.7 mg/dL High NINF - 2.8 mg/dL [facility] Lipase [Catalytic activity/Vol] 13 U/L NINF - 55 U/L [facility] Lactate [Moles/Vol] 1 mmol/L 0.5 - 2. 2 mmol/L [facility] Lipase [Catalytic activity/V ol]on 10-15-2024 Interpretation and review of laboratory results Normal [facility] No Panel Informationon 10-15 Interpretation and review of laboratory results Abnormal [facility] Interpretation and review of laboratory results Normal [facility] [id number] 10-04-2024 [id number] SAMIA met with pt to co llect the HCPOA. SAMIA made sure pt understood the document. Pt confirmed she understood. This SAMIA and CM Leelee signed as witnesses. SAMIA made three copies. The original and one copy went to the pt. One copy went in pt's paper chart. The last copy was sent to medical records. Normal [facility] [id number] SAMIA met with pt at [facility] to discus the documented SDOH of HCPOA SAMIA asked pt about HCPOA and pt was pleased that SW brought her HCPOA paperwork. SAMIA explained to pt about how a HCPOA works. Pt thanked SAMIA and started to work on the HCPOA paperwork. SW told pt she would come back in about an hour to help pt fill out the rest of the HCPOA paperwork such as the two witnesses. Pt thanked SW. SW also told pt how to get a hold of SW if pt discharges before SW is able to come back. Normal [facility] CBC WITH AUTO DIFFERENTIALon 10-04-2024 Basophils (Bld) [#/Vol] 0.0 10*3/uL Normal 0.0-0.2 [facility] Comment on above: Performed By: #### L [id number] ####Customer Relations Consultant: TELLO CERNA ([phone])[facility] ([facility])[address] [place] [address] Basophils/100 WBC (Bld) 0.3 % Normal 0.0-2.0 [facility] Comment on above: Performed By: #### L [id number] ####Customer Relations Consultant: TELLO CERNA ([phone])[facility] [place] [address] Eosinophils (Bld) [#/Vol] 0.0 10*3/uL Normal 0.0-0.5 [facility] Comment on above: Performed By: #### L [id number] ####Customer Relations Consultant: TELLO CERNA ([phone])[facility] [place] [address] Eosinophils/100 WBC (Bld) 0.2 % Normal 0.0-6.0 [facility] Comment on above: Performed By: #### L [id number] ####Customer Relations Consultant: TELLO CERNA ([phone])[facility] ([facility])[address] [place] [address] Erythrocyte distribution width (RBC) [Ratio] 13.3 % Normal 11.5-15.0 [facility] Comment on above: Performed By: #### L [id number] ####Customer Relations Consultant: TELLO [phone])[facility] [place] (SBHLAB)[address] Hematocrit (Bld) [Volume fraction] 34.8 % Low 35.0-47.0 [facility] Comment on above: Performed By: #### L [id number] ####Customer Relations Consultant: TELLO CERNA ([phone])[facility] (SB[facility]AB)[address] Hemoglobin (Bld) [Mass/Vol] 11.3 g/dL Low 11.7-16.0 [facility] Comment on above: Performed By: #### L [id number] ####Customer Relations Consultant: TELLO CERNA ([phone])[facility] (HLAB)[address] IMMATURE GRANS % 0.1 % Normal 0.0-2.0 [facility] Comment on above: Performed By: #### L [id number] ####Customer Relations Consultant: TELLO CERNA ([phone])[facility] (SB[facility])[address] IMMATURE GRANS ABSOLUTE 0.0 10*3/uL Normal <0.1 [facility] Comment on above: Performed By: #### L [id number] ####Customer Relations Consultant: TELLO CERNA ([phone])[facility] ([facility])[address] [place] [address] Lymphocytes (Bld) [#/Vol] 1.9 10*3/uL Normal 1.0-4.3 [facility] Comment on above: Performed By: #### L [id number] ####Customer Relations Consultant: TELLO CERNA ([phone])[facility] (SB[facility])[address] Lymphocytes/100 WBC (Bld) 20.5 % Normal 15.0-45.0 [facility] Comment on above: Performed By: #### L [id number] ####Customer Relations Consultant: TELLO CERNA ([phone])[facility] [place] (SBHLAB)[address] MCH (RBC) [Entitic mass] 27.4 pg Normal 26.0-34.0 [facility] Comment on above: Performed By: #### L [id number] ####Customer Relations Consultant: TELLO CERNA ([phone])[facility] [place] (SBHLAB)[address] MCHC 32.5 % Normal 30.5-36.0 [facility] Comment on above: Performed By: #### L [id number] ####Customer Relations Consultant: TELLO CERNA ([phone])[facility] [place] (SBHLAB)[address] MCV (RBC) [Entitic vol] 84.5 fL Normal 77.0-99.0 [facility] Comment on above: Performed By: #### L [id number] ####Customer Relations Consultant: TELLO CERNA ([phone])[facility] [place] (SB[facility])[address] Monocytes (Bld) [#/Vol] 0.6 10*3/uL Normal 0.0-0.9 [facility] Comment on above: Performed By: #### L [id number] ####Customer Relations Consultant: TELLO CERNA ([phone])[facility] [place] (SB[facility])[address] Monocytes/100 WBC (Bld) 6.2 % Normal 5.0-13.0 [facility] Comment on above: Performed By: #### L [id number] ####Customer Relations Consultant: TELLO CERNA ([phone])[facility] [place] (SB[facility]AB)[address] NEUTROPHILS ABSOLUTE 6.6 10*3/uL Normal 1.8-7.5 [facility] Comment on above: Performed By: #### L [id number] ####Customer Relations Consultant: TELLO CERNA ([phone])[facility] [place] (SBHLAB)[address] Neutrophils/100 WBC (Bld) 72.7 % Normal 38.0-82.0 [facility] Comment on above: Performed By: #### L [id number] ####Customer Relations Consultant: TELLO CERNA ([phone])[facility]ENTERAlfonso [facility] (SBHLAB)[address] NRBC 0.0 /100 WBCs Normal 0.0-2.0 [facility] Comment on above: Performed By: #### L [id number] ####Customer Relations Consultant: TELLO CERNA ([phone])[facility] (SBHLAB)[address] Platelet mean volume (Bld) [Entitic vol] 10.0 fL Normal 9.0-12.7 [facility] Comment on above: Performed By: #### L [id number] ####Customer Relations Consultant: TELLO CERNA ([phone])[facility]ENTERAl[facility]so [place] (SBHLAB)[address] Platelets (Bld) [#/Vol] 248 10*3/uL Normal 140-440 [facility] Comment on above: Performed By: #### L [id number] ####Customer Relations Consultant: TELLO CERNA ([phone])[facility] (SB[facility])[address] [place] [address] [place] RBC (Bld) [#/Vol] 4.12 10*6/uL Normal 3.80-5.20 [facility] Comment on above: Performed By: #### L [id number] ####Customer Relations Consultant: TELLO CERNA ([phone])[facility]ENTERAl[facility] (SB[facility]AB)[address] [place] [address] [place] WBC (Bld) [#/Vol] 9.0 10*3/uL Normal 3.6-10.7 [facility] Comment on above: Performed By: #### L [id number] ####Customer Relations Consultant: TELLO CERNA ([phone])[facility] [place] (SBHLAB)[address] COMPREHENSIVE METABOLIC PANE Flex 10-04-2024 Albumin [Mass/Vol] 2.9 g/dL Low 3.5-5.0 [facility] Comment on above: Performed By: #### L AB17 ####Customer Relations Consultant: TELLO CERNA ([phone])[facility] [place] (SB[facility])[address] ALP [Catalytic activity/Vol] 136 U/L Normal 40-150 [facility] Comment on above: Performed By: #### L [id number] ####Customer Relations Consultant: TELLO CERNA ([phone])[facility] [place] ([facility])[address] ALT [Catalytic activity/Vol] 9 U/L Normal <30 [facility] Comment on above: Performed By: #### L [id number] ####Customer Relations Consultant: TELLO CERNA ([phone])[facility] ([facility])[address] Anion gap [Moles/Vol] 12 mmol/L Normal 3-13 [facility] Comment on above: Performed By: #### L [id number] ####Customer Relations Consultant: TELLO CERNA ([phone])[facility] [place] ([facility])[address] AST [Catalytic activity/Vol] 24 U/L Normal <34 [facility] Comment on above: Result Comment: TC Potential interference from hemolysis Performed By: #### L [id number] ####Customer Relations Consultant: TELLO CERNA ([phone])[facility] [place] ([facility])[address] Bilirubin [Mass/Vol] 0.2 mg/dL Normal <1.2 [facility] Comment on above: Performed By: #### L [id number] ####Customer Relations Consultant: TELLO CERNA ([phone])[facility] [place] ([facility])[address] Calcium [Mass/Vol] 8.5 mg/dL Normal 8.4-10.2 [facility] Comment on above: Performed By: #### L [id number] ####Customer Relations Consultant: TELLO CERNA ([phone])[facility]fon[facility] [place] (SB[facility]AB)[address] Chloride [Moles/Vol] 104 mmol/L Normal 98-107 [facility] Comment on above: Performed By: #### L [id number] ####Customer Relations Consultant: TELLO CERNA ([phone])[facility] (SBHLAB)[address] CO2 [Moles/Vol] 20 mmol/L Low 22-29 [facility] Comment on above: Performed By: #### L [id number] ####Customer Relations Consultant: TELLO CERNA ([phone])[facility] ([facility])[address] Creatinine [Mass/Vol] 0.67 mg/dL Normal 0.57-1.11 [facility] Comment on above: Performed By: #### L [id number] ####Customer Relations Consultant: TELLO CERNA ([phone])[facility] GLOMERULAR FILTRATION RATE ML/MIN/1.73 SQ M.PREDICTED >90.0 Normal >60.0 [facility] Comment on above: Result Comment: Calc ulation based on the Chronic Kidney Disease Epidemiology Collaboration (CKD-EPI) equation refit without adjustment for race Performed By: #### L [id number] ####Customer Relations Consultant: TELLO CERNA ([phone])[facility] ([facility])[address] Glucose [Mass/Vol] 357 mg/dL High 74-100 [facility] Comment on above: Performed By: #### L [id number] ####Customer Relations Consultant: TELLO CERNA ([phone])[facility] Potassium [Moles/Vol] 4.0 mmol/L Normal 3.5-5.1 [facility] Comment on above: Result Comment: [facility] potassium values may be up to 0.5 mmol/L lower than serum values. Performed By: #### L [id number] ####Customer Relations Consultant: TELLO CERNA ([phone])[facility] ([facility])[address] Protein [Mass/Vol] 6.3 g/dL Low 6.4-8.3 [facility] Comment on above: Performed By: #### L [id number] ####Customer Relations Consultant: TELLO CERNA ([phone])[facility] ([facility])[address] [place] [address] Sodium [Moles/Vol] 136 mmol/L Normal 136-145 [facility] Comment on above: Performed By: #### L [id number] ####Customer Relations Consultant: TELLO CERNA ([phone])[facility] ([facility])[address] [place] [address] Urea nitrogen [Mass/Vol] 8 mg/dL Low 9-23 [facility] Comment on above: Performed By: #### L [id number] ####Customer Relations Consultant: TELLO DAMIANKURTIS ([phone])[facility] (HLAB)[address] [place] [address] CT CHEST WO IV CONTRASTon CT CHEST WO IV CONTRAST Patient Name: PUJA WYMAN : 1970 Exam Date/Time: 10/04/2024 11:26 Procedure: CT CHEST WO IV CONTRAST Ordering Provider: YAÑEZ KYLE Reason For Exam: Pancreatic cancer, staging EXAM: CT Chest Without Intravenous Contrast CLINICAL INDICATION: Pancreatic cancer, staging. TECHNIQUE: Axial computed tomography images of the chest without intravenous contrast. Sagittal and coronal reformatted images were created and reviewed. This CT exam was performed using one or more of the following dose reduction techniques: automated exposure control, adjustment of the mA and/or kV according to patient size, and/or use of iterative reconstruction technique. COMPARISON: Correlations made to CT abdomen pelvis 10/02/2024. FINDINGS: Limitations: Lack of IV contrast limits evaluation to some extent. Lungs and pleural spaces: Mild emphysema most pronounced towards the apices where there is pleural parenchymal scarring. No consolidation or pleural effusions. No pneumothorax. Punctate 3 mm nodule right lung apex, series 14 image 128. Additional punctate 3 mm nodule also right upper lobe on image 111. Mediastinum: Heart size is within normal limits. Thoracic aorta and pulmonary trunk are normal in caliber. Trace coronary artery calcifications. A few prominent mediastinal lymph nodes without suspicious bulky adenopathy. Bones/joints: Degenerative spondylosis in the visualized spine. Soft tissues: No significant abnormality. Upper abdomen: Partial visualization of heterogeneous lesion pancreatic body/tail with mild adjacent stranding. IMPRESSION: 1. A few punctate pulmonary nodules right upper lobe measuring up to 3 mm. Fleischner Society Guidelines for low-risk or high-risk patients recommend that one should consider chest CT at 12 months due to the morphology and/or location of this nodule. 2. Mild emphysema most pronounced towards the apices where there is pleural parenchymal scarring. No consolidation or pleural effusions. No pneumothorax. 3. Partial visualization of heterogeneous pancreatic lesion. Report Dictated on Electronically Signed By: Angel Montenegro MD Electronically Signed Date/Time: 10/04/2024 12:14 PM EDT [facility] Progress Noteon 10-04-2024 Progress Note Nutrition note-chavez verduzco Glucerabner fisher -will d/c. Will start Ensure clear bid (Ensure Clear provides 240 kcals, 8 g protein per serving.) will continue to follow. [facility] Progress Note Nutrition Assessment Type and Reason for Visit: Initial Nutrition Recommendations/Plan: 1) suggest to continue regular diet to promote intake. Condiments will be sugar free. 2)per MNT protocol ,will start Glucerna Shake -chocolate - 220 soto, 10 gm pro/serving) bid 3)Please document PO intakes -diet and ONS-consistently in the flowsheet to better assess intake adequacy. 4) suggest hbaic 5)Monitor labs, status, intakes,wts to reassess. Follow up at least weekly Malnutrition Assessment: Malnutrition Status: Severe malnutrition Context: Chronic Illness Findings of the 6 clinical characteristics of malnutrition: Energy Intake: Weight Loss: 10% over 6 months (15% in 3-6 mos) Body Fat Loss: Severe body fat loss Orbital, Triceps, Buccal region Muscle Mass Loss: Severe muscle mass loss Temples (temporalis), Clavicles (pectoralis & deltoids), Scapula (trapezius), Hand (interosseous) Fluid Accumulation: No significant fluid accumulation Hospital Monitor Strength: Measurable reduction in fittings tightener strength Nutrition Assessment: per MD-CHIEF COMPLAINT: Chest pain Reason for Admission: Pancreatic mass, hyperglycemia History Obtained From: patient, ER provider HISTORY OF PRESENT ILLNESS: Puja is a 54 y.o. female with past medical history significant for hypertension, sleep apnea, restless leg syndrome, headache. Patient presented to the emergency room with complaint of diffuse pain in the back chest and shoulder. Patient is also feeling constipated. Patient evidently had only 1 bowel movement last 3 weeks. Denied any blood in the stool however patient has not been feeling good. Her overall appetite has gone down due to pain and constipation. Patient is having difficulty breathing states that the pain gets worse when she breathes or talk. She occasionally also gets lightheaded. She denies any blood in stool no urinary symptoms no cough congestion or sputum production. Patient was evaluated in the emergency room was found to have elevated blood sugar and suspected pancreatic mass. ASSESSMENT-Acute, acute on chronic, unstable/uncontrolled chronic problems/diagnoses: Pancreatic mass-5.6 cm mass in the distal pancreas Type 2 diabetes with hyperglycemia Generalized weakness Diffuse pain Hypokalemia Elevated proBNP though no sign of definitive heart failure Stable chronic problems affecting care, new non-acute diagnoses: Type 2 diabetes Estimated Daily Nutrient Needs: Energy Requirements Based On: Kcal/kg Weight Used for Energy Requirements: Current Weight for Energy Calculation (kg): 50 kg Total Energy Requirements (kcals/day): 28-32 or 2410-5492 plus for wt gain Weight Used for Protein Requirements: Current Weight in Kg Used for Protein Requirements: 50 kg Estimated Total Protein (g/day): 1.2-1.4 or 60-70 Estimated Daily Total Fluid (ml/day): 1.4-1.6 liters Nutrition Related Findings: chronic pain ,WEAK COLLATERAL ANALYST, states poorly controlled dm,rafael 19,cea 46.2, ca 19.9- 3109.3, un 8,alb 2.9, glu 357, hgb 11.3,urine glu >1000 , 8/7bm Wound Type: None Current Nutrition Therapies: Adult diet Regular Current Oral Intake Average Meal Intake: 51-75% (ate sandwich at dinner-family brought in) Average Supplements Intake: None Ordered (RD to start) Anthropometric Measures: Height: 157.5 cm (5' 2) Current Body Weight: 53.5 kg (118 lb) Weight Source: Standing Scale (10/04/24) Admission Body Weight: 52.2 kg (115 lb) (on stated on adm 10/02) Usual Body Weight: 63.5 kg (140 lb) (03/2021 was 120 lb) % Weight Change (Calculated): -15.7 [place] Body Weight (lbs) (Calculated): 110 lbs [place] Body Weight (Kg) (Calculated): 50 kg % [place] Body Weight (Calculated): 107.3 % BMI (kg/m2) (Calculated): 21.6 BMI Categories: Normal Weight (BMI 18.5-24.9) Nutrition Diagnosis: Severe malnutrition related to catabolic illness, other (comment), altered GI function, pain, early satiety (pancreatic cancer) as evidenced by constipation, intake 26-50%, poor intake prior to admission, weight loss, reduced fittings tightener strength, severe loss of subcutaneous fat, severe muscle loss Altered nutrition-related lab values related to endocrine dysfuntion, other (comment) (ca) as evidenced by lab values (glucose 420, cea, ca 19.9) Nutrition Interventions: Nutrition Education/Counseling: No recommendation at this time Coordination of Nutrition Care: Continue to monitor while inpatient Plan of Care discussed with: patient Goals: Goals: PO intake 50% or greater, other (specify) Specify Other Goals: labs trend toward baseline Nutrition Monitoring and Evaluation: Behavioral-Environmental Outcomes: None Identified Food/Nutrient Intake Outcomes: Supplement Intake, Food and Nutrient Intake Physical Signs/Symptoms Outcomes: Biochemical Data, Chewing or Swallowing, GI Status, Nausea or Vomiting, Fluid Status or Edema, Hemodynamic Status, Meal Time Behavior, Nutrition Focused Physical Findings, Skin, Weight Discharge Planning: Continue c (more content not included)... Normal [facility] CANCER ANTIGEN 19-9on 2024 CA 19-9 (TEJADA) 3109.3 U/mL High <=37.0 [employer] [facility] Comment on above: Result Comment: CARLOS Carmona COMMENTS: Testing performed on the [employer] I using a two-step chemiluminescent microparticle immunoassay method. Results obtained by different methods should not be used interchangeably. A 14% increase in assay value is considered as a significant change. Performed By: #### L [id number] ####Customer Relations Consultant: TELLO CERNA ([phone])[facility] ([facility])[address] [place] [address] CEAon 10-03-2024 Carcinoembryonic Ag [Mass/Vol] 46.2 ng/mL High <=5.0 [facility] Comment on above: Result Comment: CARLOS Carmona COMMENTS: The concentration of CEA in a given specimen, determined with assays from different manufacturers, can vary due to differences in assay methods and reagent specificity. Values obtained with different assay methods cannot be used interchangeably. If, in the course of monitoring a patient, the assay method used for determining CEA levels serially is changed, additional sequential testing should be carried out. METHODOLOGY: Chemiluminescent Microparticle Immunoassay (CMIA) ANALYZER: Tejada Alinity I Performed By: #### L [id number], [id number] ####Customer Relations Consultant: TELLO CERNA ([phone])[facility] ([facility])[address] [place] [address] COMPLETE URINALYSIS WITH REF DIANN TO CULTUREon 10-03-2024 BILIRUBIN, TOTAL PRESENCE IN URINE Negative Normal Negative [facility] Comment on above: Performed By: #### L [id number] ####Customer Relations Consultant: TELLO CERNA ([phone])[facility] ([facility])[address] [place] [address] Clarity (U) Clear Normal Clear [facility] Comment on above: Performed By: #### L [id number] ####Customer Relations Consultant: TELLO CERNA ([phone])[facility] ([facility])[address] [place] [address] Color (U) Light Yellow Normal Lt. Yellow [facility] Comment on above: Performed By: #### L [id number] ####Customer Relations Consultant: TELLO CERNA ([phone])[facility] ([facility])[address] GLUCOSE (MG/DL) IN URINE >1,000 Abnormal Normal (<70) [facility] Comment on above: Performed By: #### L [id number] ####Customer Relations Consultant: TELLO CERNA ([phone])[facility] ([facility])[address] HEMOGLOBIN PRESENCE IN URINE Negative Normal Negative [facility] Comment on above: Performed By: #### L [id number] ####Customer Relations Consultant: TELLO CERNA ([phone])[facility] (HLAB)[address] Ketones Ql (U) Negative Normal Negative [facility] Comment on above: Performed By: #### L [id number] ####Customer Relations Consultant: TELLO CERNA ([phone])[facility] LEUKOCYTE ESTERASE PRESENCE IN URINE BY TEST STRIP Negative Normal Negative [facility] Comment on above: Performed By: #### L [id number] ####Customer Relations Consultant: TELLO CERNA ([phone])[facility] NITRITE PRESENCE IN URINE Negative Normal Negative [facility] Comment on above: Performed By: #### L [id number] ####Customer Relations Consultant: TELLO CERNA ([phone])[facility] (HLAB)[address] pH (U) 6.0 [pH] Normal 5.0-8.0 [facility] Comment on above: Performed By: #### L [id number] ####Customer Relations Consultant: TELLO CERNA ([phone])[facility] ([facility])[address] Protein (U) [Mass/Vol] Negative Normal Negative [facility] Comment on above: Performed By: #### L [id number] ####Customer Relations Consultant: TELLO CERNA ([phone])[facility] ([facility])[address] [place] [address] Specific gravity (U) [Rel density] 1.037 High 1.005-1.03 0 [facility] Comment on above: Result Comment: CARLOS R COMMENTS: A specimen with <=10 WBC is not consistent with inflammation. This specimen will not reflex to a urine culture. Performed By: #### L [id number] ####Customer Relations Consultant: TELLO CERNA ([phone])[facility] ([facility])[address] [place] [address] UROBILINOGEN (MG/DL) IN URINE Normal Normal Normal (0-1) [facility] Comment on above: Performed By: #### L [id number] ####Customer Relations Consultant: TELLO CERNA ([phone])[facility] ([facility])[address] [place] [address] CT ABDOMEN PELVIS WO IV CONT RASTon 10-03-2024 CT ABDOMEN PELVIS WO IV CONTRAST [facility]MAN : 1970 [id number] Exam Date/Time: 10/02/2024 23:07 Procedure: CT ABDOMEN PELVIS WO IV CONTRAST Ordering Provider: WALL AMY Reason For Exam: Flank pain, kidney stone suspected; left EXAMINATION: CT ABDOMEN PELVIS WO IV CONTRAST CLINICAL HISTORY: Flank pain, kidney stone suspected; left COMPARISON: None TECHNIQUE: CT of the abdomen and pelvis without contrast. Dose reduction was employed with automated exposure control. FINDINGS: Included images of the lower thorax: No focal lung consolidation or pleural effusion. Hepatobiliary: Unremarkable liver without biliary dilation evident. Pancreas: Mass in the distal body and tail the pancreas measuring approximately 5.6 x 4.9 x 5.5 cm. The superior margin of the mass indents the stomach. Spleen: Unremarkable Adrenal Glands: Hyperechoic mass above abuts the left adrenal gland. Kidneys and ureters: No hydronephrosis or nephrolithiasis. A 2 cm right renal cyst is most likely simple and does not require follow-up. Abdominal vasculature: Atherosclerotic wall calcifications are present without aneurysm. GI tract: No evidence of obstruction. Colonic diverticulosis is present without evidence for diverticulitis. Peritoneum and retroperitoneum: No free fluid or free air is noted. Lymph Nodes: No abdominal lymphadenopathy is evident. Pelvis: Unremarkable Visualized musculoskeletal structures: Remote spinal fusion and laminectomies at L5-S1. Grade 2 anterolisthesis at L4-5 with probable severe spinal stenosis. No destructive bone lesions are identified. IMPRESSION: 1. A 5.6 cm mass in the distal pancreas is highly concerning for primary pancreatic cancer. A follow-up pancreatic protocol MRI with and without contrast is recommended. 2. No evidence of nephrolithiasis or hydronephrosis. 3. Other chronic ancillary findings noted above. Report Dictated on Electronically Signed By: Vinny Edgar MD Electronically Signed Date/Time: 10/03/2024 12:33 AM EDT Table formatting from the original note was not included. Pt came in c/o of chest, back, left side and shoulder pain. Pt states that it is hard to talk because it hurts and she was only pooped once in 3 weeks. EKG placed and performed in Triage. PT states that she feels weak and that she's going to fall over. PT states that she is having trouble swallowing for the last week. Normal [facility] Consulton 10-03-2024 Consult Attending Lucille schmid [facility] - General Surgery Patient Name: Puja Wyman Date: 10/03/24 Patient seen and examined. Agree as below. Patient presenting with acute on chronic abdominal pain, progressive weight loss. Patient states that she has been having mid abdominal pain with radiation into the left flank and back for the past 3 months or so. She states that she has had some recent gastrointestinal illnesses over the past year and she has lost approximately 100 pounds. She presented through the emergency department given her complaints of progressive pain and this workup was personally reviewed. Patient was afebrile and hemodynamically stable. Labs demonstrate WBC 9.1, hemoglobin 11.6, platelets 298, electrolytes largely within normal limits, potassium 3.4, creatinine 0.69 with BUN of 12, lactic acid 1.6, troponin negative, beta hydroxybutyrate 0.7, urinalysis largely within normal limits. CT scan of the abdomen pelvis was obtained which did demonstrate a large distal pancreatic mass and subsequent tumor markers with CA 19-9 and CEA were both significantly elevated with CA 19-9 being 3109.3 CEA 46.2. Patient was medically admitted andgastroenterology was consulted. They performed a endoscopic ultrasound, further characterize doing a 5.6 cm x 5.0 cm mass in the pancreatic tail with biopsies obtained. Few JESICA pancreatic benign lymph nodes were visualized but a small hyperechoic lesion was found in the left lobe of the liver measuring 9 mm x 9 mm. Patient is undergoing staging currently for further evaluation. On examination, she is accompanied by her and daughter. She understands the current findings and concerns. She denies any current nausea or vomiting. She is voiding without issue and endorsing flatus. She is hungry and eager to try liquids tonight. Patient is a current smoker, half a pack per day. Surgical history is notable for hysterectomy and tubal ligation. Patient has had prior colonoscopy in the past. Past medical history notable for hypertension, depression, BRODERICK. She does not take any current anticoagulants or antiplatelet agents. Exam: Abdomen: Soft, tenderness to palpation diffusely without peritoneal signs present. Assessment and Plan: 54 y.o. female presenting with abdominal pain and found to have a 5 cm distal pancreatic mass concerning for malignancy We discussed the workup to this point and findings at length. Certainly malignancy is suspected given the appearance and findings. Patient will require ultimate evaluation by hepatobiliary surgery for consideration of distal pancreatectomy and splenectomy. Agree with staging studies to help determine resectability and evaluate for any evidence of metastasis. Greatly appreciate gastroenterology evaluation and endoscopic ultrasound with FNA today. Medical management per primary team Recommend tertiary center evaluation, possibly outpatient, given [facility]'s lacking hepatobiliary surgery coverage. I agree with the documentation below unless otherwise stated. I personally saw and evaluated the patient and performed an individual physical examination. In addition, I discussed the patient's condition and treatment options with them as does coincide with the assessment and plan that we have established. I have also reviewed the past medical, surgical, family, and social history and care plan unless otherwise noted. All of the patient's questions were answered. moderate medical decision making and case complexity with 60 minute total care time including chart review, care coordination and face to face encounter was spent discussing/counseling the patient regarding the care plan for this patient. The patient was seen and examined independently and relevant data reviewed by myself. A full chart review was performed. Robbi Yañez MD, MPH General Surgery Perfect Serve: Robbi Yañez 5:46 PM 10/03/2024 Department of General Surgery Consult PATIENT NAME: Puja Wyman DATE OF : 1970 ADMISSION DATE: 10/02/2024 10:10 PM TODAY'S DATE: 10/03/2024 Reason for Consult: pancreatic mass HISTORY OF PRESENT ILLNESS: The patient is a 54 y.o. female who presents with abdominal pain, rib pain, and generalized fatigue. Patient states that she has experienced these symptoms for the past 3 months. She notes that she has upper abdominal and back pain that radiates into her ribs, making it hard to take a deep breath at times. Patient notes poor appetite and PO intake and notes close to a 100 pound weight loss over the past year. She notes that she has seen GI and undergone workup and treatment for intestinal bacterial overgrowth. Over this past month, patient notes that she feels aches, fatigue, and has experienced night sweats. She denies changes in bowel habits including hematochezia, melena, or diarrhea but does endorse occasional constipation. She is aware of imaging findings yi (more content not included)... Normal [facility] ED Nursing Noteon 10-03-2024 ED Nursing Note Unit made aware of impending patient transport to the unit via broadcast. Normal [facility] ED Nursing Note Unit made aware of impending patient transport to the unit via broadcast. Normal [facility] ED Nursing Note Pt ambulated around unit to restroom utilizing cane. Tolerated well. Urine and blood specimens collected and sent to lab. Pt resting comfortably. Family at bedside. Normal [facility] HIGH SENSITIVITY TROPONIN, S ERIAL, SECOND TESTon 10-03-2024 2H TROPONIN HS (SERIAL 2ND TROPONIN) <3 Normal <=14 [facility] Comment on above: Result Comment: 2h t roponin (2nd troponin) samples collected between 1h 40 min and 2h and 20 min of the baseline collection time can be utilized to interpret delta troponins as per [employer] algorithms. Samples collected outside this timeframe need to be interpreted clinically. Delta value was unable to be calculated as both baseline and serial troponin tests were below the level of quantitation. As both baseline and 2h troponin values are below the level of quantitation, acute cardiac injury is unlikely. Performed By: #### L [id number], [id number] ####Customer Relations Consultant: TELLO CERNA ([phone])[facility] ([facility])[address] Nursing Noteon 10-03-[address] Hawkins in room talking to patient Normal [facility] Nursing Note Pt is going to MRI a t this time. Normal [facility] Nursing Note Dr. Cullen notifie d that he would like this patient to be NPO Normal [facility] Nursing Note MRI checklist comple rosita at this time. Normal [facility] PROTHROMBIN TIMEon INR Coag (PPP) [Relative time] 1.0 {INR} Normal 0.9-1.1 [facility] Comment on above: Result Comment: Hermelindo mmended Anticoagulant Therapy: SEE BELOW ----- INR of 2.0 - 3.0 : - Prophylaxis of Venous Thrombosis (high-risk surgery) - Treatment of Venous Thrombosis - Treatment of Pulmonary Embolism (Includes tissue heart valves, Acute Myocardial Infarction to prevent systemic embolism, Valvular Heart Disease, and Atrial Fibrillation) ----- INR of 2.5 - 3.5 : - Mechanical Prosthetic Valves (high risk) - If oral anticoagulant therapy is used to prevent Myocardial Infarction Performed By: #### L [id number] ####Customer Relations Consultant: TELLO CERNA ([phone])[facility] ([facility])[address] [place] [address] PT Coag (PPP) [Time] 10.9 s Normal 9.0-12.0 [facility] Comment on above: Performed By: #### L [id number] ####Customer Relations Consultant: TELLO CERNA ([phone])[facility] ([facility])[address] [place] [address] Progress Noteon 10-03-2024 Progress Note Patient admitted to ay morning Seen and examined Presents with left flank and back pain CT abdomen with pancreatic tail mass. GI, surgery, and oncology consulted. Plan for endoscopic USG and MRI abdomen Labs in am Normal [facility] BETA HYDROXYBUTYRATEon 10-02 BETA HYDROXYBUTYRATE 0.7 mg/dL Normal <=2.8 [facility] Comment on above: Performed By: #### L [id number], LAB17, [id number], [id number] ####Customer Relations Consultant: TELLO CERNA ([phone])[facility] ([facility])[address] CBC WITH AUTO DIFFERENTIALon 10-02-2024 Basophils (Bld) [#/Vol] 0.1 10*3/uL Normal 0.0-0.2 [facility] Comment on above: Performed By: #### L [id number] ####Customer Relations Consultant: TELLO CERNA ([phone])[facility] [place] [address] Basophils/100 WBC (Bld) 0.8 % Normal 0.0-2.0 [facility] Comment on above: Performed By: #### L [id number] ####Customer Relations Consultant: TELLO CERNA ([phone])[facility] Eosinophils (Bld) [#/Vol] 0.2 10*3/uL Normal 0.0-0.5 [facility] Comment on above: Performed By: #### L [id number] ####Customer Relations Consultant: TELLO CERNA ([phone])[facility] Eosinophils/100 WBC (Bld) 2.3 % Normal 0.0-6.0 [facility] Comment on above: Performed By: #### L [id number] ####Customer Relations Consultant: TELLO CERNA ([phone])[facility] Erythrocyte distribution width (RBC) [Ratio] 13.4 % Normal 11.5-15.0 [facility] Comment on above: Performed By: #### L [id number] ####Customer Relations Consultant: TELLO [phone])[facility] [place] ([facility])[address] Hematocrit (Bld) [Volume fraction] 34.7 % Low 35.0-47.0 [facility] Comment on above: Performed By: #### L [id number] ####Customer Relations Consultant: TELLO DAMIANKURTIS ([phone])[facility] ([facility])[address] Hemoglobin (Bld) [Mass/Vol] 11.6 g/dL Low 11.7-16.0 [facility] Comment on above: Performed By: #### L [id number] ####Customer Relations Consultant: TELLO CERNA ([phone])[facility] IMMATURE GRANS % 0.3 % Normal 0.0-2.0 [facility] Comment on above: Performed By: #### L [id number] ####Customer Relations Consultant: TELLO DAMIANKURTIS ([phone])[facility] ([facility])[address] IMMATURE GRANS ABSOLUTE 0.0 10*3/uL Normal <0.1 [facility] Comment on above: Performed By: #### L [id number] ####Customer Relations Consultant: TELLO CERNA ([phone])[facility] ([facility])[address] [place] [address] [place] Lymphocytes (Bld) [#/Vol] 3.3 10*3/uL Normal 1.0-4.3 [facility] Comment on above: Performed By: #### L [id number] ####Customer Relations Consultant: TELLO CERNA ([phone])[facility] Lymphocytes/100 WBC (Bld) 36.1 % Normal 15.0-45.0 [facility] Comment on above: Performed By: #### L [id number] ####Customer Relations Consultant: TELLO CERNA ([phone])[facility] [place] ([facility])[address] MCH (RBC) [Entitic mass] 27.8 pg Normal 26.0-34.0 [facility] Comment on above: Performed By: #### L [id number] ####Customer Relations Consultant: TELLO DAMIANKURTIS ([phone])[facility] [place] ([facility])[address] MCHC 33.4 % Normal 30.5-36.0 [facility] Comment on above: Performed By: #### L [id number] ####Customer Relations Consultant: TELLO CERNA ([phone])[facility] [place] ([facility])[address] MCV (RBC) [Entitic vol] 83.2 fL Normal 77.0-99.0 [facility] Comment on above: Performed By: #### L [id number] ####Customer Relations Consultant: TELLO CERNA ([phone])[facility] [place] ([facility])[address] Monocytes (Bld) [#/Vol] 0.7 10*3/uL Normal 0.0-0.9 [facility] Comment on above: Performed By: #### L [id number] ####Customer Relations Consultant: TELLO CERNA ([phone])[facility] [place] ([facility])[address] Monocytes/100 WBC (Bld) 7.7 % Normal 5.0-13.0 [facility] Comment on above: Performed By: #### L [id number] ####Customer Relations Consultant: TELLO CERNA ([phone])[facility] [place] ([facility])[address] NEUTROPHILS ABSOLUTE 4.8 10*3/uL Normal 1.8-7.5 [facility] Comment on above: Performed By: #### L [id number] ####Customer Relations Consultant: TELLO CERNA ([phone])[facility] [place] ([facility])[address] Neutrophils/100 WBC (Bld) 52.8 % Normal 38.0-82.0 [facility] Comment on above: Performed By: #### L [id number] ####Customer Relations Consultant: TELLO CERNA ([phone])[facility] ([facility])[address] NRBC 0.0 /100 WBCs Normal 0.0-2.0 [facility] Comment on above: Performed By: #### L [id number] ####Customer Relations Consultant: TELLO CERNA ([phone])[facility] ([facility])[address] Platelet mean volume (Bld) [Entitic vol] 9.8 fL Normal 9.0-12.7 [facility] Comment on above: Performed By: #### L [id number] ####Customer Relations Consultant: TELLO CERNA ([phone])[facility] ([facility])[address] Platelets (Bld) [#/Vol] 298 10*3/uL Normal 140-440 [facility] Comment on above: Performed By: #### L [id number] ####Customer Relations Consultant: TELLO CERNA ([phone])[facility] ([facility])[address] RBC (Bld) [#/Vol] 4.17 10*6/uL Normal 3.80-5.20 [facility] Comment on above: Performed By: #### L [id number] ####Customer Relations Consultant: TELLO CERNA ([phone])[facility] ([facility])[address] WBC (Bld) [#/Vol] 9.1 10*3/uL Normal 3.6-10.7 [facility] Comment on above: Performed By: #### L [id number] ####Customer Relations Consultant: TELLO CERNA ([phone])[facility] ([facility])[address] COMPREHENSIVE METABOLIC PANE Flex 10-02-2024 Albumin [Mass/Vol] 3.0 g/dL Low 3.5-5.0 [facility] Comment on above: Performed By: #### Krystyna [id number], LAB17, TYW660, RSC8711 ####Customer Relations Consultant: TELLO CERNA ([phone])[facility] ([facility])[address] ALP [Catalytic activity/Vol] 124 U/L Normal 40-150 [facility] Comment on above: Performed By: #### Krystyna [id number], LAB17, ALB417, RYD1706 ####Customer Relations Consultant: TELOL CERNA ([phone])[facility] ([facility])[address] ALT [Catalytic activity/Vol] 15 U/L Normal <30 [facility] Comment on above: Performed By: #### Krystyna [id number], LAB17, ATE308, [id number] ####Customer Relations Consultant: TELLO CERNA ([phone])[facility] ([facility])[address] Anion gap [Moles/Vol] 9 mmol/L Normal 3-13 [facility] Comment on above: Performed By: #### Krystyna [id number], LAB17, NKI902, EAD7042 ####Customer Relations Consultant: TELLO CERNA ([phone])[facility] ([facility])[address] AST [Catalytic activity/Vol] 14 U/L Normal <34 [facility] Comment on above: Performed By: #### L [id number], LAB17, DNF949, UFH6810 ####Customer Relations Consultant: TELLO CERNA ([phone])[facility] ([facility])[address] Bilirubin [Mass/Vol] 0.2 mg/dL Normal <1.2 [facility] Comment on above: Performed By: #### L [id number], LAB17, CID716, XNV4924 ####Customer Relations Consultant: TELLO CERNA ([phone])[facility]ENTERAlfonso [facility] ([facility])[address] Calcium [Mass/Vol] 9.0 mg/dL Normal 8.4-10.2 [facility] Comment on above: Performed By: #### L [id number], LAB17, PSR388, WQN4170 ####Customer Relations Consultant: TELLO CERNA ([phone])[facility] ([facility])[address] Chloride [Moles/Vol] 105 mmol/L Normal 98-107 [facility] Comment on above: Performed By: #### L [id number], LAB17, ALX028, PDZ1181 ####Customer Relations Consultant: TELLO CERNA ([phone])[facility] ([facility])[address] CO2 [Moles/Vol] 24 mmol/L Normal 22-29 [facility] Comment on above: Performed By: #### L [id number], LAB17, TWV071, VRN0285 ####Customer Relations Consultant: TELLO CERNA ([phone])[facility] ([facility])[address] Creatinine [Mass/Vol] 0.69 mg/dL Normal 0.57-1.11 [facility] Comment on above: Performed By: #### L [id number], LAB17, XLN746, TUJ4040 ####Customer Relations Consultant: TELLO CERNA ([phone])[facility] ([facility])[address] GLOMERULAR FILTRATION RATE ML/MIN/1.73 SQ M.PREDICTED >90.0 Normal >60.0 [facility] Comment on above: Result Comment: Calc ulation based on the Chronic Kidney Disease Epidemiology Collaboration (CKD-EPI) equation refit without adjustment for race Performed By: #### L [id number], LAB17, IIQ556, PDP5179 ####Customer Relations Consultant: TELLO CERNA ([phone])[facility] ([facility])[address] Glucose [Mass/Vol] 297 mg/dL High 74-100 [facility] Comment on above: Performed By: #### L [id number], LAB17, XMZ582, BEJ3811 ####Customer Relations Consultant: TELLO CERNA ([phone])[facility] ([facility])[address] Potassium [Moles/Vol] 3.4 mmol/L Low 3.5-5.1 [facility] Comment on above: Result Comment: [facility] potassium values may be up to 0.5 mmol/L lower than serum values. Performed By: #### L [id number], LAB17, QJJ178, BZT5593 ####Customer Relations Consultant: TELLO CERNA ([phone])[facility] ([facility])[address] Protein [Mass/Vol] 6.3 g/dL Low 6.4-8.3 [facility] Comment on above: Performed By: #### Krystyna [id number], LAB17, RVW906, SQY7509 ####Customer Relations Consultant: TELLO CERNA ([phone])[facility] ([facility])[address] Sodium [Moles/Vol] 138 mmol/L Normal 136-145 [facility] Comment on above: Performed By: #### L [id number], LAB17, KRL890, MHW3208 ####Customer Relations Consultant: TELLO CERNA ([phone])[facility] ([facility])[address] Urea nitrogen [Mass/Vol] 12 mg/dL Normal 9-23 [facility] Comment on above: Performed By: #### L [id number], LAB17, LLA643, PIB9190 ####Customer Relations Consultant: TELLO CERNA ([phone])[facility] ([facility])[address] [place] [address] ECG 12-LEADon 10-02-2024 ECG 12-LEAD IMPRESSION: Sinus rhythm Consider right atrial enlargement Electronically Signed On 10-02-2024 23:29:02 EDT by Lisa Castorena [facility] ED Provider Noteon ED Provider Note [facility] ED eMERGENCY dEPARTMENT eNCOUnter Pt Name: Puja Wyman Birthdate 1970 Date of evaluation: 10/02/2024 Provider: Maryjo Wall PA-C CHIEF COMPLAINT Chief Complaint Patient presents with Chest Pain Pt came in c/o of chest, back, left side and shoulder pain. Pt states that it is hard to talk because it hurts and she was only pooped once in 3 weeks. EKG placed and performed in Triage. PT states that she feels weak and that she's going to fall over. PT states that she is having trouble swallowing for the last week. HISTORY OF PRESENT ILLNESS (Location/Symptom, Timing/Onset,Context/Sett ing, Quality, Duration, Modifying Factors, Severity) Note limiting factors. HPI This patient is seen in conjunction with Dr. Bacon who also interviewed and evaluated the patient at bedside. Puja Wyman is a 54 y.o. female who presents to the emergency department with multiple complaints. Patient presents with a note explaining her recent symptoms which include intense/excruciating pain in the left side, back, chest and shoulder. She is only had 1 bowel movement in 3 weeks and that was today. She states she can eat without feeling full or sick. She has not had chills and sweats at the same time and states that it hurts when she breathes or talk. She has had lightheadedness and tenderness in the ribs which are sore to the touch. She does complain of feeling generally weak. Nursing Notes were reviewed. REVIEW OF SYSTEMS (2+ for4; 10+ for level 5) Review of Systems Constitutional: Positive for activity change, appetite change, chills, diaphoresis and fatigue. Negative for fever. HENT: Negative for ear pain and sore throat. Eyes: Negative for pain and visual disturbance. Respiratory: Negative for cough and shortness of breath. Cardiovascular: Negative for chest pain and palpitations. Gastrointestinal: Positive for constipation. Negative for abdominal pain and vomiting. Genitourinary: Negative for dysuria and hematuria. Musculoskeletal: Positive for myalgias. Negative for arthralgias and back pain. Skin: Negative for color change and rash. Neurological: Positive for light-headedness. Negative for seizures and syncope. All other systems reviewed and are negative. PAST MEDICAL HISTORY Medical History[1] SURGICALHISTORY Surgical History[2] CURRENT MEDICATIONS Previous Medications No medications on file Hydrocodone, Hydrocodone-acetaminophen , and Tramadol FAMILY HISTORY Family History[3] SOCIAL HISTORY Social History[4] SCREENINGS PHYSICAL EXAM (5+ for level 4, 8+ for level 5) @EDTRIAGEVSS@ Physical Exam Vitals and nursing note reviewed. Constitutional: General: She is not in acute distress. Appearance: Normal appearance. She is well-developed. She is not ill-appearing. HENT: Head: Normocephalic and atraumatic. Eyes: Conjunctiva/sclera: Conjunctivae normal. Cardiovascular: Rate and Rhythm: Normal rate and regular rhythm. Heart sounds: No murmur heard. Pulmonary: Effort: Pulmonary effort is normal. No respiratory distress. Breath sounds: Normal breath sounds. Abdominal: General: Abdomen is flat. Bowel sounds are normal. There is no distension. Palpations: Abdomen is soft. Tenderness: There is no abdominal tenderness. Musculoskeletal: General: No swelling. Skin: General: Skin is warm and dry. Neurological: General: No focal deficit present. Mental Status: She is alert and oriented to person, place, and time. Psychiatric: Mood and Affect: Mood normal. Behavior: Behavior normal. DIAGNOSTIC RESULTS EKG (Per Emergency Physician): RADIOLOGY (Per EmergencyPhysician): Interpretation per the Radiologist below, if available at the time of this note: @EDRISRSLT@ : Labs Reviewed COMPLETE URINALYSIS WITH REFLEX TO CULTURE - Abnormal Result Value Color, Urine Light Yellow Clarity, Urine Clear pH, Urine 6.0 Leukocytes, Urine Negative Nitrite, Urine Negative Protein, Urine Negative Glucose, Urine >1,000 (*) Bilirubin, Urine Negative Ketones, Urine Negative Urobilinogen, Urine Normal Blood, Urine Negative SPECIFIC GRAVITY OF URINE (NUMERIC) 1.037 (*) Narrative: A specimen with <=10 WBC is not consistent with inflammation. This specimen will not reflex to a urine culture. CBC WITH AUTO DIFFERENTIAL - Abnormal Auto WBC 9.1 RBC 4.17 Hemoglobin 11.6 (*) Hematocrit 34.7 (*) MCV 83.2 MCH 27.8 MCHC 33.4 RDW 13.4 Platelets 298 MPV 9.8 nRBC 0.0 Neutrophils Relative 52.8 Lymphocytes Relative 36.1 Monocytes Relative 7.7 Eosinophils Relative 2.3 Basophils Relative 0.8 Immature Grans % 0.3 Neutrophils Absolute 4.8 Lymphocytes Absolute 3.3 Monocytes Absolute 0.7 Eosinophils Absolute 0.2 Basophils Absolute 0.1 Immature Grans Absolute 0.0 NT PRO BNP - Abnormal NT PRO BNP 382 (*) COMPREHENSIVE METABOLIC PANEL - Abnormal SODIUM 138 POTASSIUM 3.4 (*) CHLORIDE 105 C (more content not included)... Normal [facility] ED Provider Note Emergency Department Encounter [facility] ED Patient: Puja Wyman : 1970 Date of Evaluation: 10/02/2024 ED Supervising Physician: Ernesto Bacon DO Patient, Puja Wyman, is seen and examined in conjunction with advanced practice practitioner. I independently performed history, physical exam, admitted all diagnostic treatment and disposition decisions. I personally evaluated Puja Wyman and made/approved the management plan and take responsibility for the patient management. This will serve as my Supervisory note and shared attestation. I did perform a substantive portion of the visit including all aspects of the Medical Decision Making. In brief their history revealed 54-year-old female presenting for multiple complaints. She has been having chest pain going her back and shoulders. She also has a constipation, was been feeling ill. She is visiting from out of town. She spoke with family who were concerned about her chest pain and recommended she come for evaluation.. Their focused exam: GENERAL: Awake, alert, no apparent distress HEENT: Atraumatic, normocephalic. PERRL. EOMI. NECK: Trachea midline. CV: Regular rate and rhythm, no murmurs RESPIRATORY: Clear breath sounds bilaterally. No respiratory distress. No accessory muscle use. GI: Abdomen soft, nontender throughout. No rigidity, rebound or guarding. NEURO: Alert and oriented x 3. Follows commands. Normal motor and sensation throughout. EXTREMITIES: No deformities noted. No palpable bony injury. ED course/brief MDM: 54-year-old female presenting for chest pain. She also is reporting pain in her bilateral kidneys. We checked labs and EKG. EKG was personally interpreted showing sinus rhythm without acute ischemic findings. Labs show grossly normal blood counts, metabolic panel. Her lactic acid is not elevated. Urinalysis does not show infection. She does not appear to be in DKA or HHS. Chest x-ray was personally interpreted showing no acute ischemic findings. 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 Discussed with patient who is unaware of this history. Discussed my concern for possible malignancy. Patient was agreeable to admission and workup at [facility]. Discussed with the hospitalist, Dr. Gan, who agreed accept for admission. I did attempt to reach out to gastroenterology to ensure patient would be able to be evaluated at [facility] that there are some issues with ERCP coverage but did not receive a response from the caving guide television installer helper. All diagnostic, treatment, and disposition decisions were made by myself in conjunction with the NELY. For all further details of the patient's emergency department visit, please see their documentation. (Comment: Please note this report has been produced using speech recognition software and may contain errors related to that system including errors in grammar, punctuation, and spelling, as well as words and phrases that may be inappropriate. If there are any questions or concerns please feel free to contact the dictating provider for clarification.) Ernesto Bacon DO [employer] Ernesto Bacon DO 10/03/24 0513 Normal [facility] HIGH SENSITIVITY TROPONIN, S ERIAL BASELINEon 10-02-2024 TROPONIN HS SERIAL BASELINE <3 Normal <=14 [facility] Comment on above: Result Comment: In i ndividuals presenting with symptoms > 2h, a baseline troponin <= 5 ng/L suggests acute cardiac injury is unlikely and further serial testing is generally not indicated. Performed By: #### L [id number], LAB17, YCO052, [id number] ####Customer Relations Consultant: TELLO CERNA ([phone])[facility] [place] HOSPITAL)[address] [place] [address] LACTIC ACID WITH REFLEXon Lactate [Moles/Vol] 1.6 mmol/L Normal 0.5-2.2 [facility] Comment on above: Performed By: #### L [id number] ####Customer Relations Consultant: TELLO CERNA ([phone])[facility] ([facility])[address] [place] [address] NT PRO BNPon 10-02-2024 Natriuretic peptide B (Bld) [Mass/Vol] 382 pg/mL High <125 [facility] Comment on above: Performed By: #### L [id number], [id number], [id number], [id number] ####Customer Relations Consultant: TELLO CERNA ([phone])[facility] ([facility])[address] [place] [address] CNOVon 05-17-2024 CNOV Office Visit (UCWSTR ) ----- PUJA WYMAN ([id number]) 1970 Date Time Provider Department 05/17/24 1:30 PM ISAMAR HE [facility] During your visit today, we recorded the following information about you: Temperature Pulse Respiration Blood pressure 99.5 degrees 113/minute 18/minute 135/93 Weight 57 kg Isamar He PA-C 05/17/2024 1:53 PM Signed This note was created using ulikeriter. Subjective Puja Wyman is a 54 year old female. Patient is a 54-year-old female who complains of fever, chills, body aches, ear pain, sore throat and burning cough that she has been experiencing for the past 2 days. Patient denies episodes of wheezing and has no history of asthma or COPD. Patient does smoke cigarettes. Patient explains that she typically does receive the flu vaccine every year, however she did not do so this year. Review of Systems Constitutional: Positive for chills and fever. HENT: Positive for ear pain and sore throat. Respiratory: Positive for cough. Musculoskeletal: Positive for myalgias. All other systems reviewed and are negative. Objective BP 135/93 Pulse 113 Temp 37.5 ?C (99.5 ?F) Resp 18 Wt 57 kg (125 lb 10.6 oz) LMP (LMP Unknown) SpO2 97% BMI 22.98 kg/m? Physical Exam Vitals and nursing note reviewed. Constitutional: Appearance: Normal appearance. She is normal weight. HENT: Head: Normocephalic and atraumatic. Right Ear: Tympanic membrane, ear canal and external ear normal. Left Ear: Tympanic membrane, ear canal and external ear normal. Nose: Nose normal. Mouth/Throat: Mouth: Mucous membranes are moist. Pharynx: Oropharynx is clear. Eyes: Extraocular Movements: Extraocular movements intact. Conjunctiva/sclera: Conjunctivae normal. Pupils: Pupils are equal, round, and reactive to light. Cardiovascular: Rate and Rhythm: Normal rate and regular rhythm. Pulses: Normal pulses. Heart sounds: Normal heart sounds. Pulmonary: Effort: Pulmonary effort is normal. Breath sounds: Normal breath sounds. Musculoskeletal: Cervical back: Normal range of motion and neck supple. Skin: General: Skin is warm and dry. Capillary Refill: Capillary refill takes less than 2 seconds. Neurological: General: No focal deficit present. Mental Status: She is alert and oriented to person, place, and time. Psychiatric: Mood and Affect: Mood normal. Behavior: Behavior normal. Thought Content: Thought content normal. Judgment: Judgment normal. Assessment and Plan Physical exam findings as noted above. Rapid strep test is negative. Patient was provided with prescriptions for Tamiflu 75 mg and Tessalon 100 mg. Supportive care instructions were discussed and the patient verbalizes good understanding of same. CLINICAL IMPRESSION: Influenza ASSESSMENT/PLAN: 1. Sore throat - ICD9: 462, ICD10: J02.9 (primary diagnosis) - STREP A MOLECULAR (POC) 2. Influenza - ICD9: 487.1, ICD10: J11.1 - OSELTAMIVIR 75 MG CAPSULE - BENZONATATE 100 MG CAPSULE MDM Amount and/or Complexity of Data Reviewed Clinical lab tests: ordered and reviewed Risk of Complications, Morbidity, and/or Mortality Presenting problems: low Diagnostic procedures: low Management options: zelda He PA-C Allergies As of Date: 05/17/2024 Noted Allergy Reaction SOAP 04/22/2020 4 - Hives Comments: Bubble bath Date Reviewed: 05/17/2024 Reviewed by: Mylene Ratliff MA - Fully Assessed Reason for Visit: sore throat and ear pain x3 days [Other] Primary Visit Diagnosis:Sore throat [J02.9] Other Visit Diagnosis:Influenza [J11.1] Order(s):STREP A MOLECULAR (POC) [2069468] Order #: [id number]. #:[id number] oseltamivir (TAMIFLU) 75 mg capsuleTake 1 capsule by mouth two times a day for 5 days.Disp: 10 capsuleRfl: 0 benzonatate (TESSALON PERLE) 100 mg capsuleTake 1 capsule by mouth three times a day as needed for cough for up to 7 days.Disp: 21 capsuleRfl: 0 Prescriptions as of 05/17/2024 - oseltamivir (TAMIFLU) 75 mg capsule Take 1 capsule by mouth two times a day for 5 days. - benzonatate (TESSALON PERLE) 100 mg capsule Take 1 capsule by mouth three times a day as needed for cough for up to 7 days. - amitriptyline (ELAVIL) 25 mg tablet - aspirin, enteric coated (ASPIRIN, ENTERIC COATED) 81 mg EC tablet Take 81 mg by mouth. - celecoxib (CELEBREX) 100 mg capsule Take 100 mg by mouth twice daily. - cholecalciferol (VITAMIN D3) 1,000 unit tab tablet Take 1,000 Units by mouth. - dicyclomine (BENTYL) 10 mg capsule Take 10 mg by mouth. - glimepiride (AMARYL) 4 mg tablet Take 4 mg by mouth. - metoprolol tartrate, short acting, (LOPRESSOR) 50 mg tablet Take 50 mg by mouth twice daily. - omeprazole (PRILOSEC) 20 mg capsule take 1 capsule by mouth twice a day , 30 MINUTES BEFORE MORNING MEAL, NEEDED - potassium chloride 20 mEq TbER Take 1 (more content not included)... Normal [facility] STREP A MOLECULAR (POC)on Procedural Control Valid [facility] Strep A (POCT) Negative Negative [facility] ED PROGRESS NOTE (PROVIDER)o n 05-12-2024 ED PROGRESS NOTE (PROVIDER) HNO ID: [id number] Author: CAMILA MONGE APRN.CNP Service: Emergency Medicine Author Type: Nurse Practitioner Type: ED PROGRESS NOTE (PROVIDER) Filed: 05/12/2024 21:55 Note Text: ED CONTINUATION OF CARE NOTE Code Status: Full Code Assumed care from: Shade HARDING Presentation / Findings / Interventions / Plan / Items to Follow Up: XR ED Course as of 05/12/242147 Camila Monge's Documentation Sun May 12, 20242145 XR HAND GENERAL 3V PA/LAT/OBL RIGHT RESULT: Normal alignment. No fracture. No aggressive osseous lesion. Chronic nonunited ulnar styloid fracture. No additional significant finding. 2145 MPRESSION: Right lower leg: No fracture or malalignment. Right foot: Negative. Clinical Impressions as of 05/12/242147 Foot injury, right, 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 Right hand pain Medical Decision Making Patient is a 54-year-old female presenting here with multiple orthopedic injuries after a fall. X-rays all negative for any acute changes. 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 Patient be discharged with [id number]-[id number] analgesics as needed SIGNATURE: Camila Monge APRN.CNP PATIENT NAME: Puja Wyman DATE: May 12, 2024 TIME: 9:48 PM PAGER/CONTACT #: - Normal [facility] ED PROV NOTEon 05-12-2024 ED PROV NOTE HNO ID: [id number] Author: SHADE BOWMAN PA-C Service: Emergency Medicine Author Type: Physician Junior Sales Representative Type: ED Provider Notes Filed: 05/12/2024 20:58 Note Text: [facility] EMERGENCY DEPARTMENT EMERGENCY DEPARTMENT ENCOUNTER Pt Name: Puja Wyman Birthdate 1970 Date of evaluation: 05/12/2024 Provider: Shade Bowman PA-C CHIEF COMPLAINT Fall (Pt states she fell a week ago and is having continued pain in her right foot that radiates up to her knee and states she is having difficulty walking. She arrives ambulatory with a walker/Rolator. She also c/o right hand pain ) HISTORY OF PRESENT ILLNESS HPI Puja Wyman is a 54 year old female who presents to the emergency department for chief complaint of having discomfort within the patient's right foot and also anterior aspect of her jian after she states that she flipped over her rollator last week. Patient also states that she has pain within her first and second MCP joints within her right hand. Denies any change in range of motion. She denies any numbness. Did not hit her head does not take any blood thinners. Patient has no other complaints at this time REVIEW OF SYSTEMS Review of Systems Patients review of systems are otherwise negative unless listed in HPI PAST MEDICAL HISTORY No past medical history on file. SURGICAL HISTORY No past surgical history on file. CURRENT MEDICATIONS Previous Medications AMITRIPTYLINE (ELAVIL) 25 MG TABLET ASPIRIN, ENTERIC COATED (ASPIRIN, ENTERIC COATED) 81 MG EC TABLET Take 81 mg by mouth. CELECOXIB (CELEBREX) 100 MG CAPSULE Take 100 mg by mouth twice daily. CHOLECALCIFEROL (VITAMIN D3) 1,000 UNIT TAB TABLET Take 1,000 Units by mouth. DICYCLOMINE (BENTYL) 10 MG CAPSULE Take 10 mg by mouth. GLIMEPIRIDE (AMARYL) 4 MG TABLET Take 4 mg by mouth. METOPROLOL TARTRATE, SHORT ACTING, (LOPRESSOR) 50 MG TABLET Take 50 mg by mouth twice daily. OMEPRAZOLE (PRILOSEC) 20 MG CAPSULE take 1 capsule by mouth twice a day , 30 MINUTES BEFORE MORNING MEAL, NEEDED OZEMPIC 1 MG/DOSE (4 MG/3 ML) PEN DIAL AND INJECT 1MG subcutaneously every week POTASSIUM CHLORIDE 20 MEQ TBER Take 1 tablet by mouth twice daily. ROPINIROLE (REQUIP) 1 MG TABLET Take 1 mg by mouth. VITAMIN E, DL,TOCOPHERYL ACET, (VITAMIN E, DL, ACETATE,) 180 MG (400 UNIT) CAPSULE Take 180 mg by mouth once daily. ALLERGIES Soap FAMILY HISTORY No family history on file. SOCIAL HISTORY Social History Tobacco Use Smoking status: Every Day Types: Cigarettes Smokeless tobacco: Never Substance Use Topics Alcohol use: Not Currently Drug use: Yes Types: Marijuana Comment: medical SCREENINGS Physical Exam Constitutional: General: She is not in acute distress. Appearance: She is not ill-appearing. HENT: Head: Normocephalic and atraumatic. Cardiovascular: Rate and Rhythm: Normal rate. Pulmonary: Effort: Pulmonary effort is normal. No respiratory distress. Breath sounds: Normal breath sounds. Abdominal: Palpations: Abdomen is soft. Musculoskeletal: General: Tenderness present. Normal range of motion. Cervical back: Neck supple. Comments: Good range of motion within the toes and knee and ankle. Patient appears to have discomfort within the right foot mid metatarsal around the third and also at the MTP joint first digit. Patient does not have any medial or lateral malleolar pain. Patient has mild pain to palpation within the anterior aspect of the jain distal aspect right leg. No deformities noted. Able to bear weight and walk. Neurological: Mental Status: She is alert. She is disoriented. Comments: Good sensation palpation of distal extremity Psychiatric: Mood and Affect: Mood normal. Behavior: Behavior normal. Thought Content: Thought content normal. Judgment: Judgment normal. DIAGNOSTIC RESULTS EKG (Per Emergency Physician): Not clinically indicated Radiology Interpretation per the Radiologist below, if available at the time of this note: XR FOOT GENERAL 3V AP/LAT/OBL RIGHT (Results Pending) XR TIBIA FIBULA 2V AP/LAT RIGHT (Results Pending) XR HAND GENERAL 3V PA/LAT/OBL RIGHT (Results Pending) LABS: Labs Reviewed - No data to display EMERGENCY DEPARTMENT COURSE and DIFFERENTIAL DIAGNOSIS/MDM: Vitals: 05/12/24 1920 BP: 141/79 Pulse: 79 Resp: 18 Temp: 37.5 ?C (99.5 ?F) TempSrc: Oral SpO2: 98% Weight: 62.6 kg (138 lb) Height: 157.5 cm (5' 2) Medical Decision Making I have evaluated this patient on my own, per my scope of practice with an attending available for consultation. Based on all information given at this time, patient is well-appearing, nontoxic-appearing, does have point tenderness to her right foot over the metatarsals on the right. Patient also has pain to the anterior jain and right hand. Good ROM with her hand and food. Normal neuro exam. No tenderness to spine on exam and no head trauma. Pending xrays at [facility] (more content not included)... Normal [facility] XR FOOT 3V AP/LAT/OBL RTon 0 05-12-2024 XR FOOT 3V AP/LAT/OBL RT * * *Final Report* * * DATE OF EXAM: May 12 2024 7:56PM [id number] - XR FOOT 3V AP/LAT/OBL RT / PROCEDURE REASON: Foot trauma, no prior imaging * * * * Physician Interpretation * * * * RIGHT LOWER LEG X-RAY SERIES CLINICAL HISTORY: Foot trauma, no prior imaging (accession [id number]), Fracture / Dislocation (accession [id number]) TECHNIQUE: AP and lateral views. COMPARISON: None available. RESULT: No fracture or malalignment. Joint spaces and articular surfaces are preserved. RIGHT FOOT X-RAY SERIES TECHNIQUE: AP, lateral and oblique views. COMPARISON: None available. RESULT: No fracture or malalignment. Joint spaces and articular surfaces are preserved. Minimal degenerative spurring at first MTP joint. IMPRESSION: Right lower leg: No fracture or malalignment. Right foot: Negative. Display And Banner Designer: PSCB Transcribe Date/Time: May 12 2024 9:41P Dictated by : GRANT BUTTS MD This examination was interpreted and the report reviewed and electronically signed by: GRANT BUTTS MD on May 12 2024 9:44PM EST [id number] Normal [facility] XR HAND 3V PA/LAT/OBL RTon 0 05-12-2024 XR HAND 3V PA/LAT/OBL RT * * *Final Report* * * DATE OF EXAM: May 12 2024 7:56PM [id number] - XR HAND 3V PA/LAT/OBL RT / PROCEDURE REASON: Trauma * * * * Physician Interpretation * * * * EXAMINATION: XR HAND 3V PA/LAT/OBL RT PATIENT/TECHNOLOGIST PROVIDED HISTORY: PAIN RIGHT HAND, RIGHT FOOT AND RIGHT TIB FIB CLINICAL INFORMATION ( PROVIDED BY ORDERING CLINICIAN) : Trauma. . TECHNIQUE: XR HAND 3V PA/LAT/OBL RT COMPARISON: None. RESULT: Normal alignment. No fracture. No aggressive osseous lesion. Chronic nonunited ulnar styloid fracture. No additional significant finding. IMPRESSION: See Result Display And Banner Designer: [employer] Transcribe Date/Time: May 12 2024 9:40P Dictated by : BERTA MONTEMAYOR MD This examination was interpreted and the report reviewed and electronically signed by: BERTA MONTEMAYOR MD on May 12 2024 9:42PM EST [id number] Normal [facility] XR TIBIA FIBULA 2V AP/LAT RT on 05-12-2024 XR TIBIA FIBULA 2V AP/LAT RT * * *Final Report* * * DATE OF EXAM: May 12 2024 7:56PM [id number] - XR TIBIA FIBULA 2V AP/LAT RT / PROCEDURE REASON: Fracture / Dislocation * * * * Physician Interpretation * * * * RIGHT LOWER LEG X-RAY SERIES CLINICAL HISTORY: Foot trauma, no prior imaging (accession [id number]), Fracture / Dislocation (accession [id number]) TECHNIQUE: AP and lateral views. COMPARISON: None available. RESULT: No fracture or malalignment. Joint spaces and articular surfaces are preserved. RIGHT FOOT X-RAY SERIES TECHNIQUE: AP, lateral and oblique views. COMPARISON: None available. RESULT: No fracture or malalignment. Joint spaces and articular surfaces are preserved. Minimal degenerative spurring at first MTP joint. IMPRESSION: Right lower leg: No fracture or malalignment. Right foot: Negative. Display And Banner Designer: PSCVanessa Transcribe Date/Time: May 12 2024 9:41P Dictated by : GRANT BUTTS MD This examination was interpreted and the report reviewed and electronically signed by: GRANT BUTTS MD on May 12 2024 9:44PM EST [id number] Normal [facility] ALBUMIN/CREATININE RATIO, UR INEon 05-01-2024 Albumin Unsp time DL <= 20 mg/L (U) [Mass/Time] <12.0 Normal [facility] Comment on above: Order Comment: Speci men Type: URINE SPECIMENOrdering Facility: [facility] Address: [address] [place] [address] Performed By: #### U ACR ####[facility] LABORATORYCLIA [id number] [place] [address] [place] Albumin/Creatinine (U) [Mass ratio] <14 Normal <30 [facility] Comment on above: Order Comment: Speci men Type: URINE SPECIMENOrdering Facility: [facility] Address: [address] [place] [address] Result Comment: Adul t Male and Female Nephrotic Criteria: <30 mg/g is considered normal to mildly increased 30-300 mg/g is considered moderately increased >300 mg/g is considered severely increased KDIGO. (2013). KDIGO 2012 Clinical Practice Guideline for the Evaluation and Management of Chronic Kidney Disease. Official Journal of the International Society of Nephrology, 3(1), 1-150. Performed By: #### U ACR ####[facility] LABORATORYCLIA [id number] [address] [place] [facility] Creatinine (U) [Mass/Vol] 84.7 mg/dL Normal 42.2-237.9 [facility] Comment on above: Order Comment: Speci men Type: URINE SPECIMENOrdering Facility: [facility] Address: [address] [place] [address] Performed By: #### U ACR ####[facility] LABORATORYCLIA [id number] [place] [address] [place] CBC W Auto Differential pane l (Bld)on 05-01-2024 Basophils (Bld) [#/Vol] 0.10 10*3/uL Normal <0.11 [facility] Comment on above: Order Comment: Speci men Type: BLOOD SPECIMENOrdering Facility: [facility] Address: [address] [place] [address] Performed By: #### 5 7021-8 ####[facility] HOSPITALLIA [id number] [place] [address] [place] Basophils/100 WBC (Bld) 1.0 % Normal [facility] Comment on above: Order Comment: Speci men Type: BLOOD SPECIMENOrdering Facility: [facility] Address: [address] [place] [address] Performed By: #### 5 7021-8 ####[facility] MILLWNCLIA [id number] [address] [place] Differential cell count method Nom (Bld) Auto Normal [facility] Comment on above: Order Comment: Speci men Type: BLOOD SPECIMENOrdering Facility: [facility] Address: [address] [place] [address] Performed By: #### 5 7021-8 ####[facility] H[facility]ITALLIA [id number] [place] [address] [place] Eosinophils (Bld) [#/Vol] 0.19 10*3/uL Normal <0.46 [facility] Comment on above: Order Comment: Speci men Type: BLOOD SPECIMENOrdering Facility: [facility] Address: [address] [place] [address] Performed By: #### 5 7021-8 ####[facility] [id number] [place] [address] [place] Eosinophils/100 WBC (Bld) 1.9 % Normal [facility] Comment on above: Order Comment: Speci men Type: BLOOD SPECIMENOrdering Facility: [facility] Address: [address] [place] [address] Performed By: #### 5 7021-8 ####[facility]CLI [id number] [place] [address] [place] Erythrocyte distribution width (RBC) [Ratio] 12.9 % Normal 11.5-15.0 [facility] Comment on above: Order Comment: Speci men Type: BLOOD SPECIMENOrdering Facility: [facility] Address: [address] [place] [address] Performed By: #### 5 7021-8 ####[facility] [id number] [address] [place] Hematocrit (Bld) [Volume fraction] 42.6 % Normal 36.0-46.0 [facility] Comment on above: Order Comment: Speci men Type: BLOOD SPECIMENOrdering Facility: [facility] Address: [address] [place] [address] Performed By: #### 5 7021-8 ####[facility]CL[facility] [id number] [place] [address] [place] Hemoglobin (Bld) [Mass/Vol] 13.9 g/dL Normal 11.5-15.5 [facility] Comment on above: Order Comment: Speci men Type: BLOOD SPECIMENOrdering Facility: [facility] Address: [address] [place] [address] Performed By: #### 5 7021-8 ####[facility] [id number] [place] [address] [place] Immature granulocytes (Bld) [#/Vol] 0.03 10*3/uL Normal <0.10 [facility] Comment on above: Order Comment: Speci men Type: BLOOD SPECIMENOrdering Facility: [facility] Address: [address] [place] [address] Performed By: #### 5 7021-8 ####[facility] [id number] [place] [address] [place] Immature granulocytes/100 WBC (Bld) 0.3 % Normal [facility] Comment on above: Order Comment: Speci men Type: BLOOD SPECIMENOrdering Facility: [facility] Address: [address] [place] [address] Performed By: #### 5 7021-8 ####[facility] [id number] [place] [address] [place] Lymphocytes (Bld) [#/Vol] 3.40 10*3/uL Normal 1.00-4.00 [facility] Comment on above: Order Comment: Speci men Type: BLOOD SPECIMENOrdering Facility: [facility] Address: [address] [place] [address] Performed By: #### 5 7021-8 ####[facility] [id number] [place] [address] [place] Lymphocytes/100 WBC (Bld) 33.8 % Normal [facility] Comment on above: Order Comment: Speci men Type: BLOOD SPECIMENOrdering Facility: [facility] Address: [address] [place], [place] [address] Performed By: #### 5 7021-8 ####[facility] [id number] [place] [address] [place] MCH (RBC) [Entitic mass] 28.6 pg Normal 26.0-34.0 [facility] Comment on above: Order Comment: Speci men Type: BLOOD SPECIMENOrdering Facility: [facility] Address: [address] [place] [address] Performed By: #### 5 7021-8 ####[facility] [id number] [place] [address] [place] MCHC (RBC) [Mass/Vol] 32.6 g/dL Normal 30.5-36.0 [facility] Comment on above: Order Comment: Speci men Type: BLOOD SPECIMENOrdering Facility: [facility] Address: [address] [place] [address] Performed By: #### 5 7021-8 ####[facility] [id number] [place] [address] [place] MCV (RBC) [Entitic vol] 87.7 fL Normal 80.0-100.0 [facility] Comment on above: Order Comment: Speci men Type: BLOOD SPECIMENOrdering Facility: [facility] Address: [address] [place] [address] Performed By: #### 5 7021-8 ####[facility] [id number] [place] [address] [place] Monocytes (Bld) [#/Vol] 0.75 10*3/uL Normal <0.87 [facility] Comment on above: Order Comment: Speci men Type: BLOOD SPECIMENOrdering Facility: [facility] Address: [address] [place] [address] Performed By: #### 5 7021-8 ####[facility]ITALWNCLIA [id number] [place] [address] [place] Monocytes/100 WBC (Bld) 7.5 % Normal [facility] Comment on above: Order Comment: Speci men Type: BLOOD SPECIMENOrdering Facility: [facility] Address: [address] [place] [address] Performed By: #### 5 7021-8 ####[facility] [id number] [place] [address] [place] Neutrophils (Bld) [#/Vol] 5.58 10*3/uL Normal 1.45-7.50 [facility] Comment on above: Order Comment: Speci men Type: BLOOD SPECIMENOrdering Facility: [facility] Address: [address] [place] [address] Performed By: #### 5 7021-8 ####[facility] [id number] [place] [address] [place] Neutrophils/100 WBC (Bld) 55.5 % Normal [facility] Comment on above: Order Comment: Speci men Type: BLOOD SPECIMENOrdering Facility: [facility] Address: [address] [place] [address] Performed By: #### 5 7021-8 ####[facility] [id number] [place] [address] [place] Nucleated RBC (Bld) [#/Vol] 10*3/uL Normal <0.01 [facility] Comment on above: Order Comment: Speci men Type: BLOOD SPECIMENOrdering Facility: [facility] Address: [address] [place] [address] Performed By: #### 5 7021-8 ####[facility]ITALA [id number] [place] [address] [place] Nucleated RBC/100 WBC (Bld) [Ratio] 0.0 /100 WBC Normal [facility] Comment on above: Order Comment: Speci men Type: BLOOD SPECIMENOrdering Facility: [facility] Address: [address] [place] [address] Performed By: #### 5 7021-8 ####[facility] [id number] [place] [address] [place] Platelet mean volume (Bld) [Entitic vol] 9.8 fL Normal 9.0-12.7 [facility] Comment on above: Order Comment: Speci men Type: BLOOD SPECIMENOrdering Facility: [facility] Address: [address] [place] [address] Performed By: #### 5 7021-8 ####[facility] [id number] [place] [address] [place] Platelets (Bld) [#/Vol] 308 10*3/uL Normal 150-400 [facility] Comment on above: Order Comment: Speci men Type: BLOOD SPECIMENOrdering Facility: [facility] Address: [address] [place] [address] Performed By: #### 5 7021-8 ####[facility] [id number] [place] [address] [place] RBC (Bld) [#/Vol] 4.86 10*6/uL Normal 3.90-5.20 [facility] Comment on above: Order Comment: Speci men Type: BLOOD SPECIMENOrdering Facility: [facility] Address: [address] [place] [address] Performed By: #### 5 7021-8 ####[facility] [id number] [place] [address] [place] WBC (Bld) [#/Vol] 10.05 10*3/uL Normal 3.70-11.00 [facility] Comment on above: Order Comment: Speci men Type: BLOOD SPECIMENOrdering Facility: [facility] Address: [address] [place] [address], [place] [address] Performed By: #### 5 7021-8 ####[facility] JJWNCLIA [id number] [address] OF [facility] Comprehensive metabolic 2000 panelon 05-01-2024 Albumin [Mass/Vol] 4.1 g/dL Normal 3.9-4.9 [facility] Comment on above: Order Comment: Speci men Type: BLOOD SPECIMENOrdering Facility: [facility] Address: [address] [place] [address], [place] [address] Performed By: #### 2 4323-8 ####[facility] [id number] [place] [address] [place]#### 3016-3 ####[facility] [id number] [place] [address] [place] ALP [Catalytic activity/Vol] 181 U/L High 34-123 [facility] Comment on above: Order Comment: Speci men Type: BLOOD SPECIMENOrdering Facility: [facility] Address: [address] [place] [address], [place] [address] Performed By: #### 2 4323-8 ####[facility] [id number] [address] [place]#### 3016-3 ####[facility]ORYCL[facility] [id number] [place] [address] [place] ALT [Catalytic activity/Vol] 19 U/L Normal 7-38 [facility] Comment on above: Order Comment: Speci men Type: BLOOD SPECIMENOrdering Facility: [facility] Address: [address] [place] [address], [place] [address] Performed By: #### 2 4323-8 ####[facility] MILLTOWNCLIA [id number] [place] [address] [place]#### 3016-3 ####[facility]ORYCL[facility] [id number] [place] [address] [place] Anion gap [Moles/Vol] 9 mmol/L Normal 8-15 [facility] Comment on above: Order Comment: Speci men Type: BLOOD SPECIMENOrdering Facility: [facility] Address: [address] [place] [address], [place] [address] Performed By: #### 2 4323-8 ####[facility] MILLTOWNCLIA [id number] [place] [address] [place]#### 3016-3 ####[facility]ATORYCLIA [id number] [place] [address] [place] AST [Catalytic activity/Vol] 13 U/L Normal 13-35 [facility] Comment on above: Order Comment: Speci men Type: BLOOD SPECIMENOrdering Facility: [facility] Address: [address] [place] [address], [place] [address] Performed By: #### 2 4323-8 ####[facility] MILLTOWNCLIA [id number] [place] [address] [place]#### 3016-3 ####[facility]ATORYCLIA [id number] [place] [address] [place] Bilirubin [Mass/Vol] mg/dL Low 0.2-1.3 [facility] Comment on above: Order Comment: Speci men Type: BLOOD SPECIMENOrdering Facility: [facility] Address: [address] [place] [address], [place] [address] Performed By: #### 2 4323-8 ####[facility] MILLTOWNCLIA [id number] [place] [address] [place]#### 3016-3 ####[facility]ATORYCLIA [id number] [place] [id number] [place] Calcium [Mass/Vol] 9.2 mg/dL Normal 8.5-10.2 [facility] Comment on above: Order Comment: Speci men Type: BLOOD SPECIMENOrdering Facility: [facility] Address: [address] [facility], [place] [address] Performed By: #### 2 4323-8 ####[facility] MILLTOWNCLIA [id number] [place] [address] [place]#### 3016-3 ####[facility]ATORYCLIA [id number] [place] [address] [place] Chloride [Moles/Vol] 98 mmol/L Normal 98-107 [facility] Comment on above: Order Comment: Speci men Type: BLOOD SPECIMENOrdering Facility: [facility] Address: [address] [place] [address], [place] [address] Performed By: #### 2 4323-8 ####[facility] MILLTOWNCLIA [id number] [place] [address] [place]#### 3016-3 ####[facility]ORYCLIA [id number] [place] [address] [place] CO2 [Moles/Vol] 24 mmol/L Normal 22-30 [facility] Comment on above: Order Comment: Speci men Type: BLOOD SPECIMENOrdering Facility: [facility] Address: [address] [place] [address], [place] [address] Performed By: #### 2 4323-8 ####[facility] MILLTOWNCLIA [id number] [place] [address] [place]#### 3016-3 ####[facility]ATORYCLIA [id number] [place] [address] [place] Creatinine [Mass/Vol] 0.60 mg/dL Normal 0.58-0.96 [facility] Comment on above: Order Comment: Specmahin ayers Type: BLOOD SPECIMENOrdering Facility: [facility] Address: [address] [place] [address] Performed By: #### 2 4323-8 ####[facility] [id number] [place] [address] [place]#### 3016-3 ####[facility]ITAL[facility] [id number] [address] Creatinine and Glomerular filtration rate.predicted panel (S/P/Bld) 106 mL/min/1.73m??? Normal >=60 [facility] Comment on above: Order Comment: Walt andria Type: BLOOD SPECIMENOrdering Facility: [facility] Address: [address] [place] [address] Result Comment: Niki mated Glomerular Filtration Rate (eGFR) is calculated using the 2020 CKD-EPI creatinine equation. This equation utilizes serum creatinine, sex, and age as parameters. The creatinine assay has traceable calibration to isotope dilution-mass spectrometry. Refer to KDIGO guidelines for clinical interpretation. In patients with unstable renal function, e.g. those with acute kidney injury, the eGFR may not accurately reflect actual GFR. Performed By: #### 2 4323-8 ####[facility] [id number] [address] [place]#### 3016-3 ####[facility]PITALIA [id number] [address] [place] Glucose [Mass/Vol] 382 mg/dL High 74-99 [facility] Comment on above: Order Comment: Rivka ayers Type: BLOOD SPECIMENOrdering Facility: [facility] Address: [address] [place] [address] Result Comment: The [place] Diabetes Association (ADA) provides guidance for cutoff values for fasting glucose and random glucose. The ADA defines fasting as no caloric intake for at least 8 hours. Fasting plasma glucose results between 100 to 125 mg/dL indicate increased risk for diabetes (prediabetes). Fasting plasma glucose results greater than or equal to 126 mg/dL meet the criteria for diagnosis of diabetes. In the absence of unequivocal hyperglycemia, results should be confirmed by repeat testing. In a patient with classic symptoms of hyperglycemia or hyperglycemic crisis, random plasma glucose results greater than or equal to 200 mg/dL meet the criteria for diagnosis of diabetes. Reference: Standards of Medical Care in Diabetes 2016, [place] Diabetes Association. Diabetes Care. 2016.39(Suppl 1). Performed By: #### 2 4323-8 ####[facility] [id number] [place] [address] [place]#### 3016-3 ####[facility] LABORATORYCLIA [id number] [address] Potassium [Moles/Vol] 4.7 mmol/L Normal 3.7-5.1 [facility] Comment on above: Order Comment: Speci men Type: BLOOD SPECIMENOrdering Facility: [facility] Address: [address] [place] [address] Performed By: #### 2 4323-8 ####[facility]ITALL[facility] [id number] [place] [address] [facility] [place]#### 3016-3 ####[facility] LABORATORYCLIA [id number] [place] [address] [place] Protein [Mass/Vol] 6.9 g/dL Normal 6.3-8.0 [facility] Comment on above: Order Comment: Speci men Type: BLOOD SPECIMENOrdering Facility: [facility] Address: [address] [place] [address] Performed By: #### 2 4323-8 ####[facility] [id number] [place] [address] [place]#### 3016-3 ####[facility]ORATORYCLIA [id number] [place] [address] [place] Sodium [Moles/Vol] 131 mmol/L Low 136-144 [facility] Comment on above: Order Comment: Speci men Type: BLOOD SPECIMENOrdering Facility: [facility] Address: [address] [place] [address], [place] [address] Performed By: #### 2 4323-8 ####[facility]ITALWNCLIA [id number] [place] [address] [place]#### 3016-3 ####[facility]ORATORYCLIA [id number] [place] [address] [place] Urea nitrogen [Mass/Vol] 20 mg/dL Normal 7-21 [facility] Comment on above: Order Comment: Speci men Type: BLOOD SPECIMENOrdering Facility: [facility] Address: [address] [place] [address], [place] [address] Performed By: #### 2 4323-8 ####[facility] [id number] [place] [address] [place]#### 3016-3 ####[facility]ORATORYCLIA [id number] [address] [place] TSH SerPl-aCncon 05-01-2024 TSH Qn 1.320 m[IU]/L Normal 0.270-4.20 0 [facility] Comment on above: Order Comment: Speci men Type: BLOOD SPECIMENOrdering Facility: [facility] Address: [address] [place] [address], [place] [address] Performed By: #### 2 4323-8 ####[facility] MILLWNCLIA [id number] [place] [address] [place]#### 3016-3 ####[facility]ORATORYCLIA [id number] [place] [address] [place] 12 Lead EKGon 04-09-2024 12 Lead EKG [facility] Cardiovascular Services [address] [facility] [address] 12 Lead EKG 04/09/24 1233 MR#: [id number] Acct: [id number] Name: PUJA WYMAN Rep #: [id number] : 1970 54 From: Humera Bustillos MD Attending Dr: Status: DEP ER Ordering Dr: Francisco Martins MD Date: 04/09/24 Location: ED Sex: F C Admitted: Test Reason : cp Blood Pressure : */* mmHG Vent. Rate : 97 BPM Atrial Rate : 97 BPM P-R Int : 134 ms QRS Dur : 80 ms QT Int : 366 ms P-R-T Axes : 76 69 74 degrees QTcB Int : 464 ms Normal sinus rhythm Biatrial enlargement Nonspecific ST abnormality Abnormal ECG No previous ECGs available Confirmed by SEA WARD, ALEX ([id number]), assistant editor NANDINI GONZALES ([id number]) on 04/15/2024 8:24:31 AM Referred By: Edphys Confirmed By: ALEX BUSTILLOS MD 04/15/24 0824 Date Humera Bustillos MD CC: [facility] FINISHED CLOTH EXAMINER-C Pauline Head; Dr. Francisco Martins MD Signed Normal [facility] Basic Metabolic Profile (BMP )on 04-09-2024 BUN/CRE 11.8 RATIO Normal 10-[address] [facility] Comment on above: Performed By: #### L 500.4050, L502.0500, L500.4100, L501.9520, L506.1000, L100.0100 #### [facility] Laboratory [address] [place], [address] CA,Total 9.0 mg/dL Normal 8.5-10.[address] [facility] Comment on above: Performed By: #### L 500.4050, L502.0500, L500.4100, L501.9520, L506.1000, L100.0100 #### [facility] Laboratory [address] [place], [address] Chloride [Moles/Vol] 100 mmol/L Normal 98-107 [facility] Comment on above: Performed By: #### L 500.4050, L502.0500, L500.4100, L501.9520, L506.1000, L100.0100 #### [facility] Laboratory [address] [place], [address] CO2 [Moles/Vol] 25.0 mmol/L Normal 21.0-32.[address] [facility] Comment on above: Performed By: #### L 500.4050, L502.0500, L500.4100, L501.9520, L506.1000, L100.0100 #### [facility] [address] [place], [address] Creatinine [Mass/Vol] 0.85 mg/dL Normal 0.55-1.02 [facility] Comment on above: Result Comment: The validity of the calculated GFR GFRAA in patients over 70 years has not been determined. Clinical correlation is essential. Performed By: #### L 500.4050, L502.0500, L500.4100, L501.9520, L506.1000, L100.0100 #### [facility] [address] [place], [address] ECRCL 59.15 ml/min Normal [facility] Comment on above: Performed By: #### L 500.4050, L502.0500, L500.4100, L501.9520, L506.1000, L100.0100 #### [facility] [address] [place], [address] EST GFR - AA 90 mL/min Normal >[address] [facility] Comment on above: Result Comment: Afri can Mac[place] GFR Calc Performed By: #### L 500.4050, L502.0500, L500.4100, L501.9520, L506.1000, L100.0100 #### [facility] [address] [place], [address] GAP 8 Normal 5-[address] [facility] Comment on above: Performed By: #### L 500.4050, L502.0500, L500.4100, L501.9520, L506.1000, L100.0100 #### [facility] [address] [place], [address] GFR/1.73 sq M.predicted among non-blacks MDRD (S/P/Bld) [Vol rate/Area] 74 mL/min/{1.73_m2} Normal >[address] [facility] Comment on above: Result Comment: Non- GFR Calc Performed By: #### L 500.4050, L502.0500, L500.4100, L501.9520, L506.1000, L100.0100 #### [facility] [address] [place], [address] Glucose [Mass/Vol] 478 mg/dL Invalid Interpretation Code 74-[address] [facility] Comment on above: Result Comment: Crit ical Result(s) Called at: 13:27:20 04/09/2024 by: DILMA OCASIO TO DIONNE. Results read back by same. Glucose result greater than or equal to 200 mg/dL suggests DIABETES MELLITUS per A.D.A. criteria. Performed By: #### L 500.4050, L502.0500, L500.4100, L501.9520, L506.1000, L100.0100 #### [facility] [address] [place], [address] Potassium [Moles/Vol] 3.8 mmol/L Normal 3.5-5.1 [facility] Comment on above: Performed By: #### L 500.4050, L502.0500, L500.4100, L501.9520, L506.1000, L100.0100 #### [facility] [address] [place], [address] Sodium [Moles/Vol] 133 mmol/L Low 136-145 [facility] Comment on above: Performed By: #### L 500.4050, L502.0500, L500.4100, L501.9520, L506.1000, L100.0100 #### [facility] [address] [place], [address] Urea nitrogen [Mass/Vol] 10 mg/dL Normal 7-[address] [facility] Comment on above: Performed By: #### L 500.4050, L502.0500, L500.4100, L501.9520, L506.1000, L100.0100 #### [facility] [address] [place], [address] Bedside Glucoseon 04-09-2024 FINGERSTICK GLU 300 mg/dL High 74-[address] [facility] Comment on above: Result Comment: ELA GEMENT OF PATIENT CARE PER NURSING PROTOCOL Performed By: #### L 501.080 #### [facility] [address] [place], [address] FINGERSTICK GLU 363 mg/dL High 74-[address] [facility] Comment on above: Result Comment: ELA GEMENT OF PATIENT CARE PER NURSING PROTOCOL Performed By: #### L 500.4050, L502.0500, L500.4100, L501.9520, L506.1000, L100.0100 #### [facility] [address] [place], [address] CBC W/Diff, Automatedon 03-30 Absolute Lymph 2.52 X10 3/uL Normal 0.83-4.[address] [facility] Comment on above: Performed By: #### L 500.4050, L502.0500, L500.4100, L501.9520, L506.1000, L100.0100 #### [facility] [address] [place], [address] Absolute Neut 6.2 X10 3/uL Normal 2.0-7.[address] [facility] Comment on above: Performed By: #### L 500.4050, L502.0500, L500.4100, L501.9520, L506.1000, L100.0100 #### [facility] [address] [place], [address] Basophils/100 WBC (Bld) 0.7 % Normal 0-[address] [facility] Comment on above: Performed By: #### L 500.4050, L502.0500, L500.4100, L501.9520, L506.1000, L100.0100 #### [facility] [address] [place], [address] Eosinophils/100 WBC (Bld) 0.9 % Normal 0-[address] [facility] Comment on above: Performed By: #### L 500.4050, L502.0500, L500.4100, L501.9520, L506.1000, L100.0100 #### [facility] [address] [place], [address] Erythrocyte distribution width (RBC) [Ratio] 12.1 % Normal 11.6-14.[address] [facility] Comment on above: Performed By: #### L 500.4050, L502.0500, L500.4100, L501.9520, L506.1000, L100.0100 #### [facility] [address] [place], [address] Hematocrit (Bld) [Volume fraction] 39.8 % Normal 37-[address] [facility] Comment on above: Performed By: #### L 500.4050, L502.0500, L500.4100, L501.9520, L506.1000, L100.0100 #### [facility] [address] [place], [address] Hemoglobin (Bld) [Mass/Vol] 13.7 g/dL Normal 12.0-15.[address] [facility] Comment on above: Performed By: #### L 500.4050, L502.0500, L500.4100, L501.9520, L506.1000, L100.0100 #### [facility] [address] [place], [address] IG% 0.400 Normal 0.0-0.[address] [facility] Comment on above: Result Comment: IG% - Immature Granulocytes (promyelocytes, myelocytes and metamyelocytes) > 1% indicates that a LEFT SHIFT is Present. Performed By: #### L 500.4050, L502.0500, L500.4100, L501.9520, L506.1000, L100.0100 #### [facility] [address] [place], [address] Lymphocytes/100 WBC (Bld) 26.5 % Normal 19-[address] [facility] Comment on above: Performed By: #### L 500.4050, L502.0500, L500.4100, L501.9520, L506.1000, L100.0100 #### [facility] [address] [place], [address] MCH (RBC) [Entitic mass] 28.9 pg Normal 27.0-32.[address] [facility] Comment on above: Performed By: #### L 500.4050, L502.0500, L500.4100, L501.9520, L506.1000, L100.0100 #### [facility] [address] [place], [address] MCHC (RBC) [Mass/Vol] 34.4 g/dL Normal 32-36 [facility] Comment on above: Performed By: #### L 500.4050, L502.0500, L500.4100, L501.9520, L506.1000, L100.0100 #### [facility] [address] [place], [address] MCV (RBC) [Entitic vol] 84.0 fL Normal 81-[address] [facility] Comment on above: Performed By: #### L 500.4050, L502.0500, L500.4100, L501.9520, L506.1000, L100.0100 #### [facility] [address] [place], [address] Monocytes/100 WBC (Bld) 6.7 % Normal 0-[address] [facility] Comment on above: Performed By: #### L 500.4050, L502.0500, L500.4100, L501.9520, L506.1000, L100.0100 #### [facility] [address] [place], [address] Neutrophils/100 WBC (Bld) 64.8 % Normal 47-[address] [facility] Comment on above: Performed By: #### L 500.4050, L502.0500, L500.4100, L501.9520, L506.1000, L100.0100 #### [facility] [address] [place], [address] Nucleated RBC (Bld) [#/Vol] 0 10*3/uL Normal 0-[address] [facility] Comment on above: Performed By: #### L 500.4050, L502.0500, L500.4100, L501.9520, L506.1000, L100.0100 #### [facility] [address] [place], [address] Platelet mean volume (Bld) [Entitic vol] 9.5 fL Normal 6.2-12.[address] [facility] Comment on above: Performed By: #### L 500.4050, L502.0500, L500.4100, L501.9520, L506.1000, L100.0100 #### [facility] [address] [place], [address] Platelets (Bld) [#/Vol] 256 10*3/uL Normal 150-[address] [facility] Comment on above: Performed By: #### L 500.4050, L502.0500, L500.4100, L501.9520, L506.1000, L100.0100 #### [facility] [address] [place], [address] RBC (Bld) [#/Vol] 4.74 10*6/uL Normal 4.2-5.4 [facility] Comment on above: Performed By: #### L 500.4050, L502.0500, L500.4100, L501.9520, L506.1000, L100.0100 #### [facility] [address] [place], [address] RDW SD 36.8 fl Normal 35.1-43.[address] [facility] Comment on above: Performed By: #### L 500.4050, L502.0500, L500.4100, L501.9520, L506.1000, L100.0100 #### [facility] [address] [place], [address] WBC (Bld) [#/Vol] 9.5 10*3/uL Normal 4.4-11.0 [facility] Comment on above: Performed By: #### L 500.4050, L502.0500, L500.4100, L501.9520, L506.1000, L100.0100 #### [facility] [address] [place], [address] Chest 1 View (Portable)on Chest 1 View (Portable) [facility] Imaging Services [address] [place] [address] Chest 1 View (Portable) MR#: [id number] Acct: [id number] Name: PUJA WYMAN Rep #: [id number] : 1970 F 54 From: Paty lara MD PCP: AMRITA Hdez, FINISHED CLOTH EXAMINER-C Status: PRE ER Study: Chest 1 View (Portable) Date of Exam: 04/09/24 Exam# [id number] Ordering Dr: Francisco Martins MD PROCEDURE: CHEST 1 VIEW (PORTABLE) REASON FOR EXAM: Chest pain. TECHNIQUE: Frontal view of the chest. COMPARISON: None. FINDINGS: The cardiac and mediastinal contours are normal. No acute consolidation, pleural effusion or pneumothorax. The visualized osseous structures demonstrate no acute abnormality. RAD/Chest 1 View (Portable) IMPRESSION: No acute consolidation, pleural effusion or pneumothorax. Reading Location: [id number] CC: [facility] FINISHED CLOTH EXAMINER-C Pauline Head; Dr. Francisco Martins MD Display And Banner Designer: Signed Normal [facility] Emergency Department Summary on 04-09-2024 Emergency Department Summary [facility] Medical Records Department [address] [place] [address] Emergency Department Summary 04/09/24 MR#: [id number] Acct: [id number] Name: PUJA WYMAN Rep #: [id number] : 1970 54 From: Francisco Martins MD PCP: AMRITA Hdez, FINISHED CLOTH EXAMINER-C Status:REG ER Location: ED HPI History of Present Illness Chief Complaint: Chest Pain Narrative Narrative: 54-year-old female presents with chest pain that started this morning. She has past medical history and states that her elevated blood sugars have been happening for months/weeks. This morning she awoke and was very dizzy and lightheaded, and she developed chest pain and pressure. She saw her primary care provider who sent her to the emergency department. She is a smoker, but states she has not had a stress test. She may have been nauseated and feels short of breath. No diaphoresis. No other exacerbating or alleviating factors. PFSH PFSH Home Medications ???Medication ???Instructions ???Recorded ???Last Taken ???Type cefuroxime axetil 500 mg tablet 500 mg PO BID #14 tabs 09/03/22 Un known Rx Allergy/AdvReac Type Severity Reaction Status Date / Time soap Allergy Hives Verified 04/09/24 13:48 tramadol Allergy Rash Verified 04/09/24 13:48 Social History Smoking Status: Current every day smoker tobacco type: cigarettes ROS ROS ED ROS Narrative Review of systems positive for chest pressure, other times sharp and stabbing. Positive nausea but no vomiting. No diaphoresis. Mild shortness of breath. Continually elevated blood sugars times weeks. EXAM Physical Exam Narrative Exam Narrative: Afebrile. Vital signs noted. Nontoxic-appearing. Cardiovascular examination on my examination reveals a regular rate and rhythm. Lungs clear to auscultation bilaterally. Abdomen is soft and nontender without guarding or rebound. Positive bowel sounds. Neurological examination nonfocal and nonlateralizing. Const Vital Signs: 04/09/24 12:18 04/09/24 12:30 04/09/24 12:30 Temperature 97.8 F Temperature Source Oral Pulse Rate 110 H Respiratory Rate 18 Respiratory Effort Normal Non-Labored Normal Non-Labored Respiratory Pattern Normal Blood Pressure 157/118 H Blood Pressure Mean 131 Pulse Ox 100 Oxygen Delivery Method Room Air 04/09/24 12:37 04/09/24 13:45 04/09/24 14:00 Temperature Temperature Source Pulse Rate 88 91 Respiratory Rate 19 H 16 Respiratory Effort Respiratory Pattern Blood Pressure 140/79 H 142/95 H Blood Pressure Mean 99 110 Pulse Ox 100 96 100 Oxygen Delivery Method Room Air Room Air Room Air 04/09/24 15:19 04/09/24 16:07 Temperature Temperature Source Pulse Rate 82 83 Respiratory Rate 13 14 Respiratory Effort Respiratory Pattern Blood Pressure 148/80 H 103/64 Blood Pressure Mean 102 77 Pulse Ox 99 98 Oxygen Delivery Method Room Air Room Air MDM MDM MDM Narrative Medical decision making narrative: Differential diagnosis includes but not limited to ACS/STEMI versus non-STEMI. Chest pain could also be secondary to nonspecific chest pain versus pneumothorax versus pneumonia. I have a low suspicion for aortic dissection as she has no tearing back pain. Comprehensive workup was pursued. EKG obtained and interpreted by myself independently as normal sinus rhythm at 97 bpm without ectopy or acute ST changes. No STEMI. I reviewed her laboratory work and she has normal white count 9.5 with hemoglobin 13.7, hematocrit 39.8, platelet count 256. Electrolyte panel shows sodium low 133 with potassium normal 3.8, BUN of 10 and creatinine 0.85. While glucose is elevated at 478, her normal anion gap of 8 leads me to have very low suspicion for diabetic ketoacidosis. Initial high- sensitivity troponin is 4. Chest x-ray in 1 view interpreted by myself independently shows no evidence of pneumothorax or pneumonia. I reviewed the radiology report which confirms my independent interpretation. Upon repeat examination, patient states she still having more electric shock type pain down her left arm. I think is probably more of a diabetic neuropathy. She was given gabapentin 100 mg here orally but told that she should get a prescription from her primary care provider as I suspect more of a neuropathic pain. Regarding her elevated blood sugar, she was bolused normal saline 1 L intravenously, and given 6 units of insulin subcutaneously. Her [id number] glucose was 363 around the time of administration. Her blood sugar will be rechecked but is already trending downwards. Her repeat troponin is normal at 5 for a acceptable delta troponin. At this point in time, I do feel she is safe for outpatient stress testing. She will follow-up with he (more content not included)... Normal [facility] L501.4020on 04-09-2024 TROPONIN-I HS 5 pg/mL Normal 3.0-54.[address] [facility] Comment on above: Result Comment: Miguelito rob Note: New Test Units and Gender Specific Reference Ranges. For more information see Policy Stat Procedure [place] High Sensitivity Troponin (TNIH) and attachments. Performed By: #### L 500.4050, L502.0500, L500.4100, L501.9520, L506.1000, L100.0100 #### [facility] [address] [place], [place], [id number] L501.5425on 04-09-2024 TROPONIN-I HS 4 pg/mL Normal 3.0-54.[address] [facility] Comment on above: Order Comment: 1Y Result Comment: Plea se Note: New Test Units and Gender Specific Reference Ranges. For more information see Policy Stat Procedure [place] High Sensitivity Troponin (TNIH) and attachments. Performed By: #### L 500.4050, L502.0500, L500.4100, L501.9520, L506.1000, L100.0100 #### [facility] [address] [place], [address] CBC W/Diff, Automatedon 11-0 6-2024 Absolute Lymph 3.10 X10 3/uL Normal 0.83-4.[address] [facility] Comment on above: Performed By: #### L 500.4050, L502.0500, L500.4100, L501.9520, L506.1000, L100.0100 #### [facility] [address] [place], [address] Absolute Neut 5.7 X10 3/uL Normal 2.0-7.[address] [facility] Comment on above: Performed By: #### L 500.4050, L502.0500, L500.4100, L501.9520, L506.1000, L100.0100 #### [facility] [address] [place], [address] Basophils/100 WBC (Bld) 0.8 % Normal 0-[address] [facility] Comment on above: Performed By: #### L 500.4050, L502.0500, L500.4100, L501.9520, L506.1000, L100.0100 #### [facility] [address] [place], [address] Eosinophils/100 WBC (Bld) 0.6 % Normal 0-[address] [facility] Comment on above: Performed By: #### L 500.4050, L502.0500, L500.4100, L501.9520, L506.1000, L100.0100 #### [facility] [address] [place], [address] Erythrocyte distribution width (RBC) [Ratio] 12.8 % Normal 11.6-14.[address] [facility] Comment on above: Performed By: #### L 500.4050, L502.0500, L500.4100, L501.9520, L506.1000, L100.0100 #### [facility] [address] [place], [address] Hematocrit (Bld) [Volume fraction] 43.8 % Normal 37-[address] [facility] Comment on above: Performed By: #### L 500.4050, L502.0500, L500.4100, L501.9520, L506.1000, L100.0100 #### [facility] [address] [place], [address] Hemoglobin (Bld) [Mass/Vol] 14.4 g/dL Normal 12.0-15.[address] [facility] Comment on above: Performed By: #### L 500.4050, L502.0500, L500.4100, L501.9520, L506.1000, L100.0100 #### [facility] [address] [place], [address] IG% 0.200 Normal 0.0-0.[address] [facility] Comment on above: Result Comment: IG% - Immature Granulocytes (promyelocytes, myelocytes and metamyelocytes) > 1% indicates that a LEFT SHIFT is Present. Performed By: #### L 500.4050, L502.0500, L500.4100, L501.9520, L506.1000, L100.0100 #### [facility] [address] [place], [address] Lymphocytes/100 WBC (Bld) 31.8 % Normal 19-[address] [facility] Comment on above: Performed By: #### L 500.4050, L502.0500, L500.4100, L501.9520, L506.1000, L100.0100 #### [facility] [address] [place], [address] MCH (RBC) [Entitic mass] 28.9 pg Normal 27.0-32.[address] [facility] Comment on above: Performed By: #### L 500.4050, L502.0500, L500.4100, L501.9520, L506.1000, L100.0100 #### [facility] [address] [place], [address] MCHC (RBC) [Mass/Vol] 32.9 g/dL Normal 32-36 [facility] Comment on above: Performed By: #### L 500.4050, L502.0500, L500.4100, L501.9520, L506.1000, L100.0100 #### [facility] [address] [place], [address] MCV (RBC) [Entitic vol] 88.0 fL Normal 81-[address] [facility] Comment on above: Performed By: #### L 500.4050, L502.0500, L500.4100, L501.9520, L506.1000, L100.0100 #### [facility] [address] [place], [address] Monocytes/100 WBC (Bld) 8.2 % Normal 0-[address] [facility] Comment on above: Performed By: #### L 500.4050, L502.0500, L500.4100, L501.9520, L506.1000, L100.0100 #### [facility] [address] [place], [address] Neutrophils/100 WBC (Bld) 58.4 % Normal 47-[address] [facility] Comment on above: Performed By: #### L 500.4050, L502.0500, L500.4100, L501.9520, L506.1000, L100.0100 #### [facility] [address] [place], [address] Nucleated RBC (Bld) [#/Vol] 0 10*3/uL Normal 0-[address] [facility] Comment on above: Performed By: #### L 500.4050, L502.0500, L500.4100, L501.9520, L506.1000, L100.0100 #### [facility] [address] [place], [address] Platelet mean volume (Bld) [Entitic vol] 9.5 fL Normal 6.2-12.[address] [facility] Comment on above: Performed By: #### L 500.4050, L502.0500, L500.4100, L501.9520, L506.1000, L100.0100 #### [facility] [address] [place], [address] Platelets (Bld) [#/Vol] 335 10*3/uL Normal 150-[address] [facility] Comment on above: Performed By: #### L 500.4050, L502.0500, L500.4100, L501.9520, L506.1000, L100.0100 #### [facility] [address] [place], [address] RBC (Bld) [#/Vol] 4.98 10*6/uL Normal 4.2-5.4 [facility] Comment on above: Performed By: #### L 500.4050, L502.0500, L500.4100, L501.9520, L506.1000, L100.0100 #### [facility] [address] [place], [address] RDW SD 41.6 fl Normal 35.1-43.[address] [facility] Comment on above: Performed By: #### L 500.4050, L502.0500, L500.4100, L501.9520, L506.1000, L100.0100 #### [facility] [address] [place], [address] WBC (Bld) [#/Vol] 9.7 10*3/uL Normal 4.4-11.0 [facility] Comment on above: Performed By: #### L 500.4050, L502.0500, L500.4100, L501.9520, L506.1000, L100.0100 #### [facility] [address] [place], [address] Comprehensive Metabolic Prof ilon 01-03-2024 Albumin [Mass/Vol] 3.5 g/dL Normal 3.2-5.0 [facility] Comment on above: Performed By: #### L 500.4050, L502.0500, L500.4100, L501.9520, L506.1000, L100.0100 #### [facility] [address] [place], [address] Albumin/Globulin [Mass ratio] 1.0 {ratio} Normal 0.9-2.[address] [facility] Comment on above: Performed By: #### L 500.4050, L502.0500, L500.4100, L501.9520, L506.1000, L100.0100 #### [facility] [address] [place], [address] ALK P 162 U/L High 45-[address] [facility] Comment on above: Performed By: #### L 500.4050, L502.0500, L500.4100, L501.9520, L506.1000, L100.0100 #### [facility] [address] [place], [address] ALT [Catalytic activity/Vol] 23 U/L Normal 13-[address] [facility] Comment on above: Performed By: #### L 500.4050, L502.0500, L500.4100, L501.9520, L506.1000, L100.0100 #### [facility] [address] [place], [address] AST [Catalytic activity/Vol] 16 U/L Normal 15-[address] [facility] Comment on above: Performed By: #### L 500.4050, L502.0500, L500.4100, L501.9520, L506.1000, L100.0100 #### [facility] [address] [place], [address] Bilirubin [Mass/Vol] 0.30 mg/dL Normal 0.20-1.00 [facility] Comment on above: Result Comment: For patients on eltrombopag therapy, use of Dimension [place] TBIL is not recommended. Performed By: #### L 500.4050, L502.0500, L500.4100, L501.9520, L506.1000, L100.0100 #### [facility] [address] [place], [address] BUN/CRE 18.0 RATIO Normal 10-[address] [facility] Comment on above: Performed By: #### L 500.4050, L502.0500, L500.4100, L501.9520, L506.1000, L100.0100 #### [facility] [address] [place], [address] CA,Total 9.2 mg/dL Normal 8.5-10.[address] [facility] Comment on above: Performed By: #### L 500.4050, L502.0500, L500.4100, L501.9520, L506.1000, L100.0100 #### [facility] [address] [place], [address] Chloride [Moles/Vol] 108 mmol/L High 98-107 [facility] Comment on above: Performed By: #### L 500.4050, L502.0500, L500.4100, L501.9520, L506.1000, L100.0100 #### [facility] [address] [place], [address] CO2 [Moles/Vol] 24.0 mmol/L Normal 21.0-32.[address] [facility] Comment on above: Performed By: #### L 500.4050, L502.0500, L500.4100, L501.9520, L506.1000, L100.0100 #### [facility] [address] [place], [address] Creatinine [Mass/Vol] 0.72 mg/dL Normal 0.55-1.02 [facility] Comment on above: Result Comment: The validity of the calculated GFR GFRAA in patients over 70 years has not been determined. Clinical correlation is essential. Performed By: #### L 500.4050, L502.0500, L500.4100, L501.9520, L506.1000, L100.0100 #### [facility] [address] [place], [address] EST GFR - AA 108 mL/min Normal >[address] [facility] Comment on above: Result Comment: Afri can Macanese GFR Calc Performed By: #### L 500.4050, L502.0500, L500.4100, L501.9520, L506.1000, L100.0100 #### [facility] [address] [place], [address] GAP 6 Normal 5-[address] [facility] Comment on above: Performed By: #### L 500.4050, L502.0500, L500.4100, L501.9520, L506.1000, L100.0100 #### [facility] [address] [place], [address] GFR/1.73 sq M.predicted among non-blacks MDRD (S/P/Bld) [Vol rate/Area] 89 mL/min/{1.73_m2} Normal >[address] [facility] Comment on above: Result Comment: Non- GFR Calc Performed By: #### L 500.4050, L502.0500, L500.4100, L501.9520, L506.1000, L100.0100 #### [facility] [address] [place], [address] Globulin (S) [Mass/Vol] 3.6 g/dL Normal 2.2-4.[address] [facility] Comment on above: Performed By: #### L 500.4050, L502.0500, L500.4100, L501.9520, L506.1000, L100.0100 #### [facility] [address] [place], [address] Glucose [Mass/Vol] 125 mg/dL High 74-106 [facility] Comment on above: Result Comment: Fast ing Glucose result from 100 to 125 mg/dL suggests IMPAIRED HOMEOSTASIS per A.D.A. criteria. Performed By: #### L 500.4050, L502.0500, L500.4100, L501.9520, L506.1000, L100.0100 #### [facility] [address] [place], [address] Potassium [Moles/Vol] 3.7 mmol/L Normal 3.5-5.1 [facility] Comment on above: Performed By: #### L 500.4050, L502.0500, L500.4100, L501.9520, L506.1000, L100.0100 #### [facility] [address] [place], [address] Sodium [Moles/Vol] 138 mmol/L Normal 136-145 [facility] Comment on above: Performed By: #### L 500.4050, L502.0500, L500.4100, L501.9520, L506.1000, L100.0100 #### [facility] [address] [place], [address] T PROT 7.1 g/dL Normal 6.4-8.[address] [facility] Comment on above: Performed By: #### L 500.4050, L502.0500, L500.4100, L501.9520, L506.1000, L100.0100 #### [facility] [address] [place], [address] Urea nitrogen [Mass/Vol] 13 mg/dL Normal 7-[address] [facility] Comment on above: Performed By: #### L 500.4050, L502.0500, L500.4100, L501.9520, L506.1000, L100.0100 #### [facility] [address] [place], [address] Microalbumin,Random Urineon 01-03-2024 MICROALBUMIN,UR 21.9 mg/L Normal NO RANGE EST. [facility] Comment on above: Performed By: #### L 500.4050, L502.0500, L500.4100, L501.9520, L506.1000, L100.0100 #### [facility] [address] [place], [address] Thyroid Stim Hormone (TSH)on 01-03-2024 TSH 1.920 uIU/mL Normal 0.358-3.[address] [facility] Comment on above: Performed By: #### L 500.4050, L502.0500, L500.4100, L501.9520, L506.1000, L100.0100 #### [facility] [address] [place], [address] Urinalysis, Completeon 01-02 AMORPHOUS 4+ Normal [facility] Comment on above: Order Comment: Urine , Random Performed By: #### L 500.4050, L502.0500, L500.4100, L501.9520, L506.1000, L100.0100 #### [facility] [address] [place], [address] CA OX CRYSTAL 1+ /hpf Normal [facility] Comment on above: Order Comment: Urine , Random Performed By: #### L 500.4050, L502.0500, L500.4100, L501.9520, L506.1000, L100.0100 #### [facility] [address] [place], [address] EPI,SQUAMOUS 0-5 SEEN Normal 5-[address] [facility] Comment on above: Order Comment: Urine , Random Performed By: #### L 500.4050, L502.0500, L500.4100, L501.9520, L506.1000, L100.0100 #### [facility] [address] [place], [address] RBC 0-5 SEEN Normal 0-[address] [facility] Comment on above: Order Comment: Urine , Random Performed By: #### L 500.4050, L502.0500, L500.4100, L501.9520, L506.1000, L100.0100 #### [facility] [address] [place], [address] BACTERIA 0 SEEN Normal None Seen [facility] Comment on above: Order Comment: Urine , Random Performed By: #### L 500.4050, L502.0500, L500.4100, L501.9520, L506.1000, L100.0100 #### [facility] [address] [place], [address] Mucus Ql (Urine sed) 0 SEEN Normal [facility] Comment on above: Order Comment: Urine , Random Performed By: #### L 500.4050, L502.0500, L500.4100, L501.9520, L506.1000, L100.0100 #### [facility] [address] [place], [address] WBC 0 SEEN Normal 0-[address] [facility] Comment on above: Order Comment: Urine , Random Performed By: #### L 500.4050, L502.0500, L500.4100, L501.9520, L506.1000, L100.0100 #### [facility] [address] [place], [address] Vitamin D,25 Hydroxyon 01-02 Vitamin D 25-OH 26.0 ng/mL Normal [facility] Comment on above: Result Comment: Kim min D 25(OH) Status Range Deficiency <20 ng/mL (50nmol/L) Insufficiency 20 - 30 ng/mL (50 - 75 nmol/L) Sufficiency 30 - 100 ng/mL (75 - 250 nmol/L) Toxicity >100 ng/mL (>250 nmol/L) Performed By: #### L 500.4050, L502.0500, L500.4100, L501.9520, L506.1000, L100.0100 #### [facility] [address] [place], [address] CBC W/Diff, Automatedon 10-0 Absolute Lymph 2.17 X10 3/uL Normal 0.83-4.[address] [facility] Comment on above: Performed By: #### L 500.4050, L502.0500, L500.4100, L501.9520, L506.1000, L100.0100 #### [facility] [address] [place], [address] Absolute Neut 7.8 X10 3/uL High 2.0-7.[address] [facility] Comment on above: Performed By: #### L 500.4050, L502.0500, L500.4100, L501.9520, L506.1000, L100.0100 #### [facility] [address] [place], [address] Basophils/100 WBC (Bld) 1.0 % Normal 0-[address] [facility] Comment on above: Performed By: #### L 500.4050, L502.0500, L500.4100, L501.9520, L506.1000, L100.0100 #### [facility] [address] [place], [address] Eosinophils/100 WBC (Bld) 0.6 % Normal 0-[address] [facility] Comment on above: Performed By: #### L 500.4050, L502.0500, L500.4100, L501.9520, L506.1000, L100.0100 #### [facility] [address] [place], [address] Erythrocyte distribution width (RBC) [Ratio] 12.6 % Normal 11.6-14.[address] [facility] Comment on above: Performed By: #### L 500.4050, L502.0500, L500.4100, L501.9520, L506.1000, L100.0100 #### [facility] [address] [place], [address] Hematocrit (Bld) [Volume fraction] 43.1 % Normal 37-[address] [facility] Comment on above: Performed By: #### L 500.4050, L502.0500, L500.4100, L501.9520, L506.1000, L100.0100 #### [facility] [address] [place], [address] Hemoglobin (Bld) [Mass/Vol] 13.8 g/dL Normal 12.0-15.[address] [facility] Comment on above: Performed By: #### L 500.4050, L502.0500, L500.4100, L501.9520, L506.1000, L100.0100 #### [facility] [address] [place], [address] IG% 0.500 Normal 0.0-0.[address] [facility] Comment on above: Result Comment: IG% - Immature Granulocytes (promyelocytes, myelocytes and metamyelocytes) > 1% indicates that a LEFT SHIFT is Present. Performed By: #### L 500.4050, L502.0500, L500.4100, L501.9520, L506.1000, L100.0100 #### [facility] [address] [place], [address] Lymphocytes/100 WBC (Bld) 20.0 % Normal 19-[address] [facility] Comment on above: Performed By: #### L 500.4050, L502.0500, L500.4100, L501.9520, L506.1000, L100.0100 #### [facility] [address] [place], [address] MCH (RBC) [Entitic mass] 28.4 pg Normal 27.0-32.[address] [facility] Comment on above: Performed By: #### L 500.4050, L502.0500, L500.4100, L501.9520, L506.1000, L100.0100 #### [facility] [address] [place], [address] MCHC (RBC) [Mass/Vol] 32.0 g/dL Normal 32-36 [facility] Comment on above: Performed By: #### L 500.4050, L502.0500, L500.4100, L501.9520, L506.1000, L100.0100 #### [facility] [address] [place] [place], [address] MCV (RBC) [Entitic vol] 88.7 fL Normal 81-[address] [facility] Comment on above: Performed By: #### L 500.4050, L502.0500, L500.4100, L501.9520, L506.1000, L100.0100 #### [facility] [address] [place], [address] Monocytes/100 WBC (Bld) 5.8 % Normal 0-[address] [facility] Comment on above: Performed By: #### L 500.4050, L502.0500, L500.4100, L501.9520, L506.1000, L100.0100 #### [facility] [address] [place], [address] Neutrophils/100 WBC (Bld) 72.1 % High 47-[address] [facility] Comment on above: Performed By: #### L 500.4050, L502.0500, L500.4100, L501.9520, L506.1000, L100.0100 #### [facility] [address] [place], [address] Nucleated RBC (Bld) [#/Vol] 0 10*3/uL Normal 0-[address] [facility] Comment on above: Performed By: #### L 500.4050, L502.0500, L500.4100, L501.9520, L506.1000, L100.0100 #### [facility] [address] [place], [address] Platelet mean volume (Bld) [Entitic vol] 9.7 fL Normal 6.2-12.[address] [facility] Comment on above: Performed By: #### L 500.4050, L502.0500, L500.4100, L501.9520, L506.1000, L100.0100 #### [facility] [address] [place], [address] Platelets (Bld) [#/Vol] 339 10*3/uL Normal 150-[address] [facility] Comment on above: Performed By: #### L 500.4050, L502.0500, L500.4100, L501.9520, L506.1000, L100.0100 #### [facility] [address] [place], [address] RBC (Bld) [#/Vol] 4.86 10*6/uL Normal 4.2-5.4 [facility] Comment on above: Performed By: #### L 500.4050, L502.0500, L500.4100, L501.9520, L506.1000, L100.0100 #### [facility] [address] [place], [address] RDW SD 40.5 fl Normal 35.1-43.[address] [facility] Comment on above: Performed By: #### L 500.4050, L502.0500, L500.4100, L501.9520, L506.1000, L100.0100 #### [facility] [address] [place], [address] WBC (Bld) [#/Vol] 10.8 10*3/uL Normal 4.4-11.0 [facility] Comment on above: Performed By: #### L 500.4050, L502.0500, L500.4100, L501.9520, L506.1000, L100.0100 #### [facility] [address] [place], [address] Comprehensive Metabolic Prof vton 12-05-2023 Albumin [Mass/Vol] 3.5 g/dL Normal 3.2-5.0 [facility] Comment on above: Performed By: #### L 500.4050, L502.0500, L500.4100, L501.9520, L506.1000, L100.0100 #### [facility] [address] [place], [address] Albumin/Globulin [Mass ratio] 1.0 {ratio} Normal 0.9-2.[address] [facility] Comment on above: Performed By: #### L 500.4050, L502.0500, L500.4100, L501.9520, L506.1000, L100.0100 #### [facility] [address] [place], [address] ALK P 177 U/L High 45-[address] [facility] Comment on above: Performed By: #### L 500.4050, L502.0500, L500.4100, L501.9520, L506.1000, L100.0100 #### [facility] [address] [place], [address] ALT [Catalytic activity/Vol] 28 U/L Normal 13-[address] [facility] Comment on above: Performed By: #### L 500.4050, L502.0500, L500.4100, L501.9520, L506.1000, L100.0100 #### [facility] [address] [place], [address] AST [Catalytic activity/Vol] 18 U/L Normal 15-[address] [facility] Comment on above: Performed By: #### L 500.4050, L502.0500, L500.4100, L501.9520, L506.1000, L100.0100 #### [facility] [address] [place], [address] Bilirubin [Mass/Vol] 0.20 mg/dL Normal 0.20-1.00 [facility] Comment on above: Result Comment: For patients on eltrombopag therapy, use of Dimension [place] TBIL is not recommended. Performed By: #### L 500.4050, L502.0500, L500.4100, L501.9520, L506.1000, L100.0100 #### [facility] [address] [place], [address] BUN/CRE 16.1 RATIO Normal 10-[address] [facility] Comment on above: Performed By: #### L 500.4050, L502.0500, L500.4100, L501.9520, L506.1000, L100.0100 #### [facility] [address] [place], [address] CA,Total 9.3 mg/dL Normal 8.5-10.[address] [facility] Comment on above: Performed By: #### L 500.4050, L502.0500, L500.4100, L501.9520, L506.1000, L100.0100 #### [facility] [address] [place], [address] Chloride [Moles/Vol] 102 mmol/L Normal 98-107 [facility] Comment on above: Performed By: #### L 500.4050, L502.0500, L500.4100, L501.9520, L506.1000, L100.0100 #### [facility] [address] [place], [address] CO2 [Moles/Vol] 21.0 mmol/L Normal 21.0-32.[address] [facility] Comment on above: Performed By: #### L 500.4050, L502.0500, L500.4100, L501.9520, L506.1000, L100.0100 #### [facility] [address] [place], [address] Creatinine [Mass/Vol] 0.75 mg/dL Normal 0.55-1.02 [facility] Comment on above: Result Comment: The validity of the calculated GFR GFRAA in patients over 70 years has not been determined. Clinical correlation is essential. Performed By: #### L 500.4050, L502.0500, L500.4100, L501.9520, L506.1000, L100.0100 #### [facility] [address] [place], [address] EST GFR - AA 104 mL/min Normal >[address] [facility] Comment on above: Result Comment: Afri can Macanese GFR Calc Performed By: #### L 500.4050, L502.0500, L500.4100, L501.9520, L506.1000, L100.0100 #### [facility] [address] [place], [address] GAP 9 Normal 5-[address] [facility] Comment on above: Performed By: #### L 500.4050, L502.0500, L500.4100, L501.9520, L506.1000, L100.0100 #### [facility] [address] [place], [address] GFR/1.73 sq M.predicted among non-blacks MDRD (S/P/Bld) [Vol rate/Area] 86 mL/min/{1.73_m2} Normal >[address] [facility] Comment on above: Result Comment: Non- GFR Calc Performed By: #### L 500.4050, L502.0500, L500.4100, L501.9520, L506.1000, L100.0100 #### [facility] [address] [place], [address] Globulin (S) [Mass/Vol] 3.6 g/dL Normal 2.2-4.[address] [facility] Comment on above: Performed By: #### L 500.4050, L502.0500, L500.4100, L501.9520, L506.1000, L100.0100 #### [facility] [address] [place], [address] Glucose [Mass/Vol] 371 mg/dL High 74-106 [facility] Comment on above: Result Comment: Gluc ose result greater than or equal to 200 mg/dL suggests DIABETES MELLITUS per A.D.A. criteria. Performed By: #### L 500.4050, L502.0500, L500.4100, L501.9520, L506.1000, L100.0100 #### [facility] [address] [place], [address] Potassium [Moles/Vol] 4.1 mmol/L Normal 3.5-5.1 [facility] Comment on above: Performed By: #### L 500.4050, L502.0500, L500.4100, L501.9520, L506.1000, L100.0100 #### [facility] [address] [place], [address] Sodium [Moles/Vol] 132 mmol/L Low 136-145 [facility] Comment on above: Performed By: #### L 500.4050, L502.0500, L500.4100, L501.9520, L506.1000, L100.0100 #### [facility] [address] [place], [address] T PROT 7.1 g/dL Normal 6.4-8.[address] [facility] Comment on above: Performed By: #### L 500.4050, L502.0500, L500.4100, L501.9520, L506.1000, L100.0100 #### [facility] [address] [place], [address] Urea nitrogen [Mass/Vol] 12 mg/dL Normal 7-[address] [facility] Comment on above: Performed By: #### L 500.4050, L502.0500, L500.4100, L501.9520, L506.1000, L100.0100 #### [facility] [address] [place], [address] Thyroid Stim Hormone (TSH)on 12-05-2023 TSH 0.815 uIU/mL Normal 0.358-3.[address] [facility] Comment on above: Performed By: #### L 500.4050, L502.0500, L500.4100, L501.9520, L506.1000, L100.0100 #### [facility] [address] [place], [address] Urinalysis, Completeon 12-04 BACTERIA 0 SEEN Normal None Seen [facility] Comment on above: Order Comment: Urine , Random Result Comment: UTO. OFFICE NOTIFIED, WILL COLLECTED ON NEXT VISIT Performed By: #### L 500.4050, L502.0500, L500.4100, L501.9520, L506.1000, L100.0100 #### [facility] [address] [place], [address] EPI,SQUAMOUS 0 SEEN Normal 5-[address] [facility] Comment on above: Order Comment: Urine , Random Result Comment: UTO. OFFICE NOTIFIED, WILL COLLECTED ON NEXT VISIT Performed By: #### L 500.4050, L502.0500, L500.4100, L501.9520, L506.1000, L100.0100 #### [facility] [address] [place], [address] Mucus Ql (Urine sed) 0 SEEN Normal [facility] Comment on above: Order Comment: Urine , Random Result Comment: UTO. OFFICE NOTIFIED, WILL COLLECTED ON NEXT VISIT Performed By: #### L 500.4050, L502.0500, L500.4100, L501.9520, L506.1000, L100.0100 #### [facility] [address] [place], [address] RBC 0 SEEN Normal 0-[address] [facility] Comment on above: Order Comment: Urine , Random Result Comment: UTO. OFFICE NOTIFIED, WILL COLLECTED ON NEXT VISIT Performed By: #### L 500.4050, L502.0500, L500.4100, L501.9520, L506.1000, L100.0100 #### [facility] [address] [place], [address] WBC 0 SEEN Normal 0-[address] [facility] Comment on above: Order Comment: Urine , Random Result Comment: UTO. OFFICE NOTIFIED, WILL COLLECTED ON NEXT VISIT Performed By: #### L 500.4050, L502.0500, L500.4100, L501.9520, L506.1000, L100.0100 #### [facility] [address] [place], [address] BILIRUBIN URINE Normal Negative [facility] Comment on above: Order Comment: Urine , Random Result Comment: UTO. OFFICE NOTIFIED, WILL COLLECTED ON NEXT VISIT Performed By: #### L 500.4050, L502.0500, L500.4100, L501.9520, L506.1000, L100.0100 #### [facility] [address] [place], [address] Clarity (U) Normal Clear [facility] Comment on above: Order Comment: Urine , Random Result Comment: UTO. OFFICE NOTIFIED, WILL COLLECTED ON NEXT VISIT Performed By: #### L 500.4050, L502.0500, L500.4100, L501.9520, L506.1000, L100.0100 #### [facility] [address] [place], [address] Color (U) Normal Yellow [facility] Comment on above: Order Comment: Urine , Random Result Comment: UTO. OFFICE NOTIFIED, WILL COLLECTED ON NEXT VISIT Performed By: #### L 500.4050, L502.0500, L500.4100, L501.9520, L506.1000, L100.0100 #### [facility] [address] [place], [address] GLUCOSE, UR Normal Normal [facility] Comment on above: Order Comment: Urine , Random Result Comment: UTO. OFFICE NOTIFIED, WILL COLLECTED ON NEXT VISIT Performed By: #### L 500.4050, L502.0500, L500.4100, L501.9520, L506.1000, L100.0100 #### [facility] [address] [place], [address] KETONE UR Normal Negative [facility] Comment on above: Order Comment: Urine , Random Result Comment: UTO. OFFICE NOTIFIED, WILL COLLECTED ON NEXT VISIT Performed By: #### L 500.4050, L502.0500, L500.4100, L501.9520, L506.1000, L100.0100 #### [facility] [address] [place], [address] LEUK ESTERASE Normal Negative [facility] Comment on above: Order Comment: Urine , Random Result Comment: UTO. OFFICE NOTIFIED, WILL COLLECTED ON NEXT VISIT Performed By: #### L 500.4050, L502.0500, L500.4100, L501.9520, L506.1000, L100.0100 #### [facility] [address] [place], [address] Nitrite Ql (U) Normal Negative [facility] Comment on above: Order Comment: Urine , Random Result Comment: UTO. OFFICE NOTIFIED, WILL COLLECTED ON NEXT VISIT Performed By: #### L 500.4050, L502.0500, L500.4100, L501.9520, L506.1000, L100.0100 #### [facility] [address] [place], [place], [id number] (359) OCCULT BLOOD-UR Normal Negative [facility] Comment on above: Order Comment: Urine , Random Result Comment: UTO. OFFICE NOTIFIED, WILL COLLECTED ON NEXT VISIT Performed By: #### L 500.4050, L502.0500, L500.4100, L501.9520, L506.1000, L100.0100 #### [facility] [address] [place], [address] pH UR Normal 5.0 - 8.[address] [facility] Comment on above: Order Comment: Urine , Random Result Comment: UTO. OFFICE NOTIFIED, WILL COLLECTED ON NEXT VISIT Performed By: #### L 500.4050, L502.0500, L500.4100, L501.9520, L506.1000, L100.0100 #### [facility] [address] [place], [address] PROT DIPSTX Normal Negative [facility] Comment on above: Order Comment: Urine , Random Result Comment: UTO. OFFICE NOTIFIED, WILL COLLECTED ON NEXT VISIT Performed By: #### L 500.4050, L502.0500, L500.4100, L501.9520, L506.1000, L100.0100 #### [facility] [address] [place], [address] SP.GR. DIPSTX Normal 1.002-1.[address] [facility] Comment on above: Order Comment: Urine , Random Result Comment: UTO. OFFICE NOTIFIED, WILL COLLECTED ON NEXT VISIT Performed By: #### L 500.4050, L502.0500, L500.4100, L501.9520, L506.1000, L100.0100 #### [facility] [address] [place], [address] UR Preservative Normal [facility] Comment on above: Order Comment: Urine , Random Result Comment: UTO. OFFICE NOTIFIED, WILL COLLECTED ON NEXT VISIT Performed By: #### L 500.4050, L502.0500, L500.4100, L501.9520, L506.1000, L100.0100 #### [facility] [address] [place], [address] UROBILI Normal Normal [facility] Comment on above: Order Comment: Urine , Random Result Comment: UTO. OFFICE NOTIFIED, WILL COLLECTED ON NEXT VISIT Performed By: #### L 500.4050, L502.0500, L500.4100, L501.9520, L506.1000, L100.0100 #### [facility] [address] [place], [address] Vitamin D,25 Hydroxyon 12-04 Vitamin D 25-OH 35.3 ng/mL Normal [facility] Comment on above: Result Comment: Kim min D 25(OH) Status Range Deficiency <20 ng/mL (50nmol/L) Insufficiency 20 - 30 ng/mL (50 - 75 nmol/L) Sufficiency 30 - 100 ng/mL (75 - 250 nmol/L) Toxicity >100 ng/mL (>250 nmol/L) Performed By: #### L 500.4050, L502.0500, L500.4100, L501.9520, L506.1000, L100.0100 #### [facility] [address] [place], [address] CBC W/Diff, Automatedon 06-2 -2023 Absolute Lymph 2.64 X10 3/uL Normal 0.83-4.[address] [facility] Comment on above: Performed By: #### L 500.4050, L502.0500, L500.4100, L501.9520, L506.1000, L100.0100 #### [facility] [address] [place], [address] Absolute Neut 5.4 X10 3/uL Normal 2.0-7.[address] [facility] Comment on above: Performed By: #### L 500.4050, L502.0500, L500.4100, L501.9520, L506.1000, L100.0100 #### [facility] [address] [place], [address] Basophils/100 WBC (Bld) 0.9 % Normal 0-[address] [facility] Comment on above: Performed By: #### L 500.4050, L502.0500, L500.4100, L501.9520, L506.1000, L100.0100 #### [facility] [address] [place], [address] Eosinophils/100 WBC (Bld) 0.7 % Normal 0-[address] [facility] Comment on above: Performed By: #### L 500.4050, L502.0500, L500.4100, L501.9520, L506.1000, L100.0100 #### [facility] [address] [place], [address] Erythrocyte distribution width (RBC) [Ratio] 12.4 % Normal 11.6-14.[address] [facility] Comment on above: Performed By: #### L 500.4050, L502.0500, L500.4100, L501.9520, L506.1000, L100.0100 #### [facility] [address] [place], [address] Hematocrit (Bld) [Volume fraction] 41.4 % Normal 37-[address] [facility] Comment on above: Performed By: #### L 500.4050, L502.0500, L500.4100, L501.9520, L506.1000, L100.0100 #### [facility] [address] [place], [address] Hemoglobin (Bld) [Mass/Vol] 13.6 g/dL Normal 12.0-15.[address] [facility] Comment on above: Performed By: #### L 500.4050, L502.0500, L500.4100, L501.9520, L506.1000, L100.0100 #### [facility] [address] [place], [address] IG% 0.300 Normal 0.0-0.[address] [facility] Comment on above: Result Comment: IG% - Immature Granulocytes (promyelocytes, myelocytes and metamyelocytes) > 1% indicates that a LEFT SHIFT is Present. Performed By: #### L 500.4050, L502.0500, L500.4100, L501.9520, L506.1000, L100.0100 #### [facility] [address] [place], [address] Lymphocytes/100 WBC (Bld) 30.3 % Normal 19-[address] [facility] Comment on above: Performed By: #### L 500.4050, L502.0500, L500.4100, L501.9520, L506.1000, L100.0100 #### [facility] [address] [place], [address] MCH (RBC) [Entitic mass] 28.5 pg Normal 27.0-32.[address] [facility] Comment on above: Performed By: #### L 500.4050, L502.0500, L500.4100, L501.9520, L506.1000, L100.0100 #### [facility] [address] [place], [address] MCHC (RBC) [Mass/Vol] 32.9 g/dL Normal 32-36 [facility] Comment on above: Performed By: #### L 500.4050, L502.0500, L500.4100, L501.9520, L506.1000, L100.0100 #### [facility] [address] [place], [address] MCV (RBC) [Entitic vol] 86.8 fL Normal 81-[address] [facility] Comment on above: Performed By: #### L 500.4050, L502.0500, L500.4100, L501.9520, L506.1000, L100.0100 #### [facility] [address] [place], [address] Monocytes/100 WBC (Bld) 5.7 % Normal 0-[address] [facility] Comment on above: Performed By: #### L 500.4050, L502.0500, L500.4100, L501.9520, L506.1000, L100.0100 #### [facility] [address] [place], [address] Neutrophils/100 WBC (Bld) 62.1 % Normal 47-[address] [facility] Comment on above: Performed By: #### L 500.4050, L502.0500, L500.4100, L501.9520, L506.1000, L100.0100 #### [facility] [address] [place], [address] Nucleated RBC (Bld) [#/Vol] 0 10*3/uL Normal 0-[address] [facility] Comment on above: Performed By: #### L 500.4050, L502.0500, L500.4100, L501.9520, L506.1000, L100.0100 #### [facility] [address] [place], [address] Platelet mean volume (Bld) [Entitic vol] 10.3 fL Normal 6.2-12.[address] [facility] Comment on above: Performed By: #### L 500.4050, L502.0500, L500.4100, L501.9520, L506.1000, L100.0100 #### [facility] [address] [place], [address] Platelets (Bld) [#/Vol] 299 10*3/uL Normal 150-[address] [facility] Comment on above: Performed By: #### L 500.4050, L502.0500, L500.4100, L501.9520, L506.1000, L100.0100 #### [facility] [address] [place], [address] RBC (Bld) [#/Vol] 4.77 10*6/uL Normal 4.2-5.4 [facility] Comment on above: Performed By: #### L 500.4050, L502.0500, L500.4100, L501.9520, L506.1000, L100.0100 #### [facility] [address] [place], [address] RDW SD 39.2 fl Normal 35.1-43.[address] [facility] Comment on above: Performed By: #### L 500.4050, L502.0500, L500.4100, L501.9520, L506.1000, L100.0100 #### [facility] [address] [place], [address] WBC (Bld) [#/Vol] 8.7 10*3/uL Normal 4.4-11.0 [facility] Comment on above: Performed By: #### L 500.4050, L502.0500, L500.4100, L501.9520, L506.1000, L100.0100 #### [facility] [address] [place], [address] Comprehensive Metabolic Prof ilon 08-22-2023 Albumin [Mass/Vol] 3.6 g/dL Normal 3.2-5.0 [facility] Comment on above: Performed By: #### L 500.4050, L502.0500, L500.4100, L501.9520, L506.1000, L100.0100 #### [facility] [address] [place], [address] Albumin/Globulin [Mass ratio] 1.1 {ratio} Normal 0.9-2.[address] [facility] Comment on above: Performed By: #### L 500.4050, L502.0500, L500.4100, L501.9520, L506.1000, L100.0100 #### [facility] [address] [place], [address] ALK P 182 U/L High 45-[address] [facility] Comment on above: Performed By: #### L 500.4050, L502.0500, L500.4100, L501.9520, L506.1000, L100.0100 #### [facility] [address] [place], [address] ALT [Catalytic activity/Vol] 23 U/L Normal 13-[address] [facility] Comment on above: Performed By: #### L 500.4050, L502.0500, L500.4100, L501.9520, L506.1000, L100.0100 #### [facility] [address] [place], [address] AST [Catalytic activity/Vol] 10 U/L Low 15-[address] [facility] Comment on above: Performed By: #### L 500.4050, L502.0500, L500.4100, L501.9520, L506.1000, L100.0100 #### [facility] [address] [place], [address] Bilirubin [Mass/Vol] 0.30 mg/dL Normal 0.20-1.00 [facility] Comment on above: Result Comment: For patients on eltrombopag therapy, use of Dimension [place] Green TBIL is not recommended. Performed By: #### L 500.4050, L502.0500, L500.4100, L501.9520, L506.1000, L100.0100 #### [facility] [address] [place], [address] BUN/CRE 11.9 RATIO Normal 10-[address] [facility] Comment on above: Performed By: #### L 500.4050, L502.0500, L500.4100, L501.9520, L506.1000, L100.0100 #### [facility] [address] [place], [address] CA,Total 9.2 mg/dL Normal 8.5-10.[address] [facility] Comment on above: Performed By: #### L 500.4050, L502.0500, L500.4100, L501.9520, L506.1000, L100.0100 #### [facility] [address] [place], [address] Chloride [Moles/Vol] 102 mmol/L Normal 98-107 [facility] Comment on above: Performed By: #### L 500.4050, L502.0500, L500.4100, L501.9520, L506.1000, L100.0100 #### [facility] [address] [place], [address] CO2 [Moles/Vol] 26.0 mmol/L Normal 21.0-32.[address] [facility] Comment on above: Performed By: #### L 500.4050, L502.0500, L500.4100, L501.9520, L506.1000, L100.0100 #### [facility] [address] [place], [address] Creatinine [Mass/Vol] 0.67 mg/dL Normal 0.55-1.02 [facility] Comment on above: Result Comment: The validity of the calculated GFR GFRAA in patients over 70 years has not been determined. Clinical correlation is essential. Performed By: #### L 500.4050, L502.0500, L500.4100, L501.9520, L506.1000, L100.0100 #### [facility] [address] [place], [place], [id number] (689) EST GFR - AA 117 mL/min Normal >[address] [facility] Comment on above: Result Comment: Afri can Macanese GFR Calc Performed By: #### L 500.4050, L502.0500, L500.4100, L501.9520, L506.1000, L100.0100 #### [facility] [address] [place], [address] GAP 7 Normal 5-[address] [facility] Comment on above: Performed By: #### L 500.4050, L502.0500, L500.4100, L501.9520, L506.1000, L100.0100 #### [facility] [address] [place], [address] GFR/1.73 sq M.predicted among non-blacks MDRD (S/P/Bld) [Vol rate/Area] 97 mL/min/{1.73_m2} Normal >[address] [facility] Comment on above: Result Comment: Non- GFR Calc Performed By: #### L 500.4050, L502.0500, L500.4100, L501.9520, L506.1000, L100.0100 #### [facility] [address] [place], [address] Globulin (S) [Mass/Vol] 3.3 g/dL Normal 2.2-4.[address] [facility] Comment on above: Performed By: #### L 500.4050, L502.0500, L500.4100, L501.9520, L506.1000, L100.0100 #### [facility] [address] [place], [address] Glucose [Mass/Vol] 404 mg/dL High 74-106 [facility] Comment on above: Result Comment: Gluc ose result greater than or equal to 200 mg/dL suggests DIABETES MELLITUS per A.D.A. criteria. Performed By: #### L 500.4050, L502.0500, L500.4100, L501.9520, L506.1000, L100.0100 #### [facility] [address] [place], [address] Potassium [Moles/Vol] 3.6 mmol/L Normal 3.5-5.1 [facility] Comment on above: Performed By: #### L 500.4050, L502.0500, L500.4100, L501.9520, L506.1000, L100.0100 #### [facility] [address] [place], [address] Sodium [Moles/Vol] 135 mmol/L Low 136-145 [facility] Comment on above: Performed By: #### L 500.4050, L502.0500, L500.4100, L501.9520, L506.1000, L100.0100 #### [facility] [address] [place], [address] T PROT 6.9 g/dL Normal 6.4-8.[address] [facility] Comment on above: Performed By: #### L 500.4050, L502.0500, L500.4100, L501.9520, L506.1000, L100.0100 #### [facility] [address] [place], [address] Urea nitrogen [Mass/Vol] 8 mg/dL Normal 7-[address] [facility] Comment on above: Performed By: #### L 500.4050, L502.0500, L500.4100, L501.9520, L506.1000, L100.0100 #### [facility] [address] [place], [address] Lipid Profileon 08-22-2023 Cholesterol [Mass/Vol] 117 mg/dL Normal 200 [facility] Comment on above: Result Comment: <200 mg/dL Desirable 200-240 mg/dL Borderline >240 mg/dL High Risk Performed By: #### L 500.4050, L502.0500, L500.4100, L501.9520, L506.1000, L100.0100 #### [facility] [address] [place], [address] Cholesterol in HDL [Mass/Vol] 37 mg/dL Low [facility] Comment on above: Result Comment: The drugs N-Acetylcysteine and Metamizole may falsely depress this assay. Reference Range HDL <40 mg/dL Low HDL Cholesterol HDL >or= 60 mg/dL High HDL Cholesterol Performed By: #### L 500.4050, L502.0500, L500.4100, L501.9520, L506.1000, L100.0100 #### [facility] [address] [place], [address] Cholesterol in LDL [Mass/Vol] 60 mg/dL Normal 0-[address] [facility] Comment on above: Performed By: #### L 500.4050, L502.0500, L500.4100, L501.9520, L506.1000, L100.0100 #### [facility] [address] [place], [address] Cholesterol in VLDL [Mass/Vol] 20 mg/dL Normal 5-[address] [facility] Comment on above: Performed By: #### L 500.4050, L502.0500, L500.4100, L501.9520, L506.1000, L100.0100 #### [facility] [address] [place], [address] Triglyceride [Mass/Vol] 101 mg/dL Normal [facility] Comment on above: Result Comment: The drugs N-Acetylcysteine and Metamizole may falsely depress this assay. Serum Triglycerides Reference Interval Normal <150 mg/dL Borderline high 150 - 199 mg/dL High 200 - 499 mg/dL Very High > or = 500 mg/dL Performed By: #### L 500.4050, L502.0500, L500.4100, L501.9520, L506.1000, L100.0100 #### [facility] [address] [place], [address] Microalbumin,Random Urineon 08-22-2023 MICROALBUMIN,UR 5.0 mg/L Normal NO RANGE EST. [facility] Comment on above: Performed By: #### L 500.4050, L502.0500, L500.4100, L501.9520, L506.1000, L100.0100 #### [facility] [address] [place], [address] Thyroid Stim Hormone (TSH)on 08-22-2023 TSH 1.05 uIU/mL Normal 0.358-3.[address] [facility] Comment on above: Performed By: #### L 500.4050, L502.0500, L500.4100, L501.9520, L506.1000, L100.0100 #### [facility] [address] [place], [address] Vitamin D,25 Hydroxyon 08-21 Vitamin D 25-OH 23.7 ng/mL Normal [facility] Comment on above: Result Comment: Kim min D 25(OH) Status Range Deficiency <20 ng/mL (50nmol/L) Insufficiency 20 - 30 ng/mL (50 - 75 nmol/L) Sufficiency 30 - 100 ng/mL (75 - 250 nmol/L) Toxicity >100 ng/mL (>250 nmol/L) Performed By: #### L 500.4050, L502.0500, L500.4100, L501.9520, L506.1000, L100.0100 #### [facility] [address] [place], [address] XR Hand - left 3 Viewson 1. Severe first CMC degenerative changes 2. No acute fracture/injury. Report Dictated on Electronically Signed By: Jose Meier MD Electronically Signed Date/Time: 07/24/2023 9:41 PM EDT [facility] Patient Name: PUJA WYMAN : 1970 Exam Date/Time: 07/24/2023 21:35 Procedure: XR HAND 3+ VIEWS LEFT Ordering Provider: ORLANDO MARGARET Reason For Exam: pain after crushed b/t mattress/box spring Left hand CLINICAL INDICATION: Pain TECHNIQUE: Three views of the left hand COMPARISON: None FINDINGS: No cortical or trabecular irregularity to suggest a fracture. Bones are in normal anatomic alignment. No gross soft tissue swelling. Severe first CMC degenerative changes including joint space narrowing, subarticular sclerosis and cystic change, and slight radial subluxation of the metacarpal. Additional heterotopic mineralization/ossificati on along the radial aspect of the joint. No radiopaque foreign body is identified. Normal bone mineral density. [facility] Jose Meier MD - 07/24/2023 Patient Name: PUJA WYMAN : 1970 Exam Date/Time: 07/24/2023 21:35 Procedure: XR HAND 3+ VIEWS LEFT Ordering Provider: ORLANDO MARGARET Reason For Exam: pain after crushed b/t mattress/box spring Left hand CLINICAL INDICATION: Pain TECHNIQUE: Three views of the left hand COMPARISON: None FINDINGS: No cortical or trabecular irregularity to suggest a fracture. Bones are in normal anatomic alignment. No gross soft tissue swelling. Severe first CMC degenerative changes including joint space narrowing, subarticular sclerosis and cystic change, and slight radial subluxation of the metacarpal. Additional heterotopic mineralization/ossificati on along the radial aspect of the joint. No radiopaque foreign body is identified. Normal bone mineral density. IMPRESSION: 1. Severe first CMC degenerative changes 2. No acute fracture/injury. Report Dictated on Electronically Signed By: Jose Meier MD Electronically Signed Date/Time: 07/24/2023 9:41 PM EDT [facility] [employer] Radiology Study observation (narrative) Serious Parody XR Hand - left 3 ViewsOrdere d By: Jose Meier on 07-24-2023 Serious Parody Work Phone: Absolute lymphocyte countOrd ered By: Mikel Downs on 09-03-2022 Lymphocytes Auto (Unsp spec) [#/Vol] 3.40 10*3/uL 0.83-4.[address] [facility] Basophil percentageOrdered B y: Mikel Downs on 09-03-2022 Basophil percentage 0-5 SEEN /hpf 0-5 [facility] Basophils/100 WBC (Bld) 0.5 % 0-[address] [facility] Chloride [Moles/Vol] 105 mmol/L 98-107 [facility] Eosinophils/100 WBC (Bld) 0.8 % 0-[address] [facility] Glucose [Mass/Vol] 210 mg/dL 74-106 [facility] Comment on above: Glucose result great er than or equal to 200 mg/dLsuggests DIABETES MELLITUS per A.D.A. criteria. Neutrophils (Bld) [#/Vol] 7.1 10*3/uL 2.0-7.[address] [facility] Neutrophils/100 WBC (Bld) 60.2 % 47-[address] [facility] Potassium [Moles/Vol] 3.6 mmol/L 3.5-5.1 [facility] Sodium [Moles/Vol] 137 mmol/L 136-145 [facility] WBC (Bld) [#/Vol] 11.9 10*3/uL 4.4-11.0 [facility] Bilirubin Test strip Ql (U)O rdered By: Mikel Downs on 09-03-2022 Bilirubin Ql (U) Negative Negative [facility] Blood erythrocytes count (nu mber/volume)Ordered By: Mikel Downs on 09-03-2022 RBC (Bld) [#/Vol] 4.74 10*6/uL 4.2-5.4 [facility] Blood hemoglobin measurement (mass/volume)Ordered By: Mikel Downs on 09-03-2022 Hemoglobin (Bld) [Mass/Vol] 14.1 g/dL 12.0-15.[address] [facility] Blood lymphocytes/100 leukoc ytesOrdered By: Mikel Downs on 09-03-2022 Lymphocytes/100 WBC (Bld) 28.7 % 19-[address] [facility] Blood monocytes/100 leukocyt esOrdered By: Mikel Downs on 09-03-2022 Monocytes/100 WBC (Bld) 9.5 % 0-[address] [facility] Blood platelet mean volumeOr dered By: Mikel Downs on 09-03-2022 Platelet mean volume (Bld) [Entitic vol] 9.5 fL 6.2-12.[address] [facility] Calcium oxalate crystals det ection in urine sediment by light microscopyOrdered By: Mikel Downs on 09-03-2022 Calcium oxalate crystals LM Ql (Urine sed) 1+ /hpf [facility] Determination of erythrocyte mean corpuscular volume (MCV)Ordered By: Mikel Downs on 09-03-2022 MCV (RBC) [Entitic vol] 91.8 fL 81-[address] [facility] Hematocrit Auto (Bld) [Volum e fraction]Ordered By: Mikel Downs on 09-03-2022 Hematocrit (Bld) [Volume fraction] 43.5 % 37-[address] [facility] Ketones Test strip Ql (U)Ord ered By: Mikel Downs on 09-03-2022 Ketones Ql (U) Negative Negative [facility] - Chemistry and C hemistry - challengeOrdered By: Mikel Downs on 09-03-2022 CO2 [Moles/Vol] 24.0 mmol/L 21.0-32.[address] [facility] Urea nitrogen/Creatinine [Mass ratio] 13.8 mg/mg 10-[address] [facility] - Hematology and Cell countsOrdered By: Mikel Downs on 09-03-2022 Erythrocyte distribution width (RBC) [Entitic vol] 42.2 fL 35.1-43.[address] [facility] Erythrocyte distribution width (RBC) [Ratio] 12.6 % 11.6-14.[address] [facility] Immature granulocytes/100 WBC (Bld) 0.300 % 0.0-0.[address] [facility] Comment on above: IG% - Immature Granu locytes (promyelocytes, myelocytes and metamyelocytes) > 1% indicates that a LEFT SHIFT is Present. MCH (RBC) [Entitic mass] 29.7 pg 27.0-32.[address] [facility] Nucleated RBC/100 WBC (Bld) [Ratio] 0 % 0-[address] [facility] MCHC Auto (RBC) [Mass/Vol]Or dered By: Mikel Downs on 09-03-2022 MCHC (RBC) [Mass/Vol] 32.4 g/dL 32-36 [facility] Mucus LM Ql (Urine sed)Order ed By: Mikel Downs on 09-03-2022 Mucus Ql (Urine sed) 0 SEEN /hpf [facility] Nitrite Test strip Ql (U)Ord ered By: Mikel Downs on 09-03-2022 Nitrite Ql (U) Positive Negative [facility] No Panel InformationOrdered By: Mikel Downs on 09-03-2022 Estimated Creatinine Clearance Calc 59.15 ml/min [facility] Estimated GFR (MDRD) Amer 88 mL/min >[address] [facility] Comment on above: GFR Calc Estimated GFR (MDRD) Non-Af Amer 72 mL/min >[address] [facility] Comment on above: Non- GFR Calc Platelets bldOrdered By: Ruddy Downs on 09-03-2022 Platelets (Bld) [#/Vol] 341 10*3/uL 150-[address] [facility] Protein Test strip Ql (U)Ord ered By: Mikel Downs on 09-03-2022 Protein Ql (U) 15 mg/dl Negative [facility] Serum or plasma calcium colette urement (mass/volume)Ordered By: Mikel Downs on 09-03-2022 Calcium [Mass/Vol] 9.2 mg/dL 8.5-10.1 [facility] Serum or plasma creatinine m easurement (mass/volume)Ordered By: Mikel Downs on 09-03-2022 Creatinine [Mass/Vol] 0.87 mg/dL 0.55-1.02 [facility] Comment on above: The validity of the calculated GFR & GFRAA in patients over 70 years has not been determined. Clinical correlation is essential. Serum or plasma urea nitroge n measurement (mass/volume)Ordered By: Mkiel Downs on 09-03-2022 Urea nitrogen [Mass/Vol] 12 mg/dL 7-[address] [facility] Squamous epithelial cells de tection in urine sediment by light microscopyOrdered By: Mikel Downs on 09-03-2022 Epithelial cells.squamous LM Ql (Urine sed) 0 SEEN /hpf 5-[address] [facility] Thin prep Papanicolaou smear with manual screeningOrdered By: Mikel Downs on 09-03-2022 Thin prep Papanicolaou smear with manual screening 8 5-[address] [facility] Urine blood detectionOrdered By: Mikel Downs on 09-03-2022 RBC Ql (U) 10 /ul Negative [facility] RBC Ql (U) 0-5 SEEN /hpf 0-[address] [facility] Urine clarityOrdered By: Ruddy Downs on 09-03-2022 Clarity (U) Clear Clear [facility] Urine color determinationOrd ered By: Mikel Downs on 09-03-2022 Color (U) Yellow Yellow [facility] Urine glucose detectionOrder ed By: Mikel Downs on 09-03-2022 Glucose Ql (U) Normal mg/dl Normal [facility] Urine leukocyte esterase det ection by dipstickOrdered By: Mikel Downs on 09-03-2022 Leukocyte esterase Test strip Ql (U) 25 /ul Negative [facility] Urine pHOrdered By: Mikel Downs on 09-03-2022 pH (U) 5.0 [pH] 5.0 - 8.[address] [facility] Urine sediment bacteria coun t by microscopy (number/high power field)Ordered By: Mikel Downs on 09-03-2022 Bacteria LM.HPF (Urine sed) [#/Area] 3 /[HPF] None Seen [facility] Urine specific gravity measu rementOrdered By: Mikel Downs on 09-03-2022 Specific gravity (U) [Rel density] 1.025 1.002-1.[address] [facility] Urobilinogen Auto test strip Ql (U)Ordered By: Mikel Downs on 09-03-2022 Urobilinogen Ql (U) Normal mg/dl Normal [facility] UA DIP, URINE (POC)on 2022 BILIRUBIN UA (POCT) Negative Negative [facility] CLARITY UA (POCT) Clear [facility] COLOR UA (POCT) Dark yellow [facility] GLUCOSE UA (POCT) Negative Negative mg/dL [facility] HEMOGLOBIN/BLOOD UA (POCT) Small Abnormal Negative [facility] KETONE UA (POCT) Trace Negative mg/dL [facility] LEUKOCYTES UA (POCT) Negative Negative [facility] NITRITE UA (POCT) Negative Negative [facility] PH UA (POCT) 5.0 4.5 - 8.0 [facility] Protein Ql (U) Negative Negative mg/dL [facility] SPECIFIC GRAVITY UA (POCT) >=1.030 1.005 - 1.030 [facility] UROBILINOGEN UA (POCT) 0.2 E.U./dL Radha l E.U./dL [facility] CBC AUTO DIFF (REFLEX MANUAL )on 06-15-2022 BASOPHIL # 0.10 x10 3/uL Normal 0.0-0.2 [facility] Comment on above: Performed By: #### V ITD #### [facility] [address] [address] BASOPHIL % 0.5 % Normal 0.0-1.5 [facility] Comment on above: Performed By: #### V ITD #### [facility] [address] [address] EOSINOPHIL % 1.2 % Normal 0.0-10.0 [facility] Comment on above: Performed By: #### V ITD #### [facility] [address] [address] LYMPHOCYTE # 3.00 x10 3/uL Normal 1.0-4.8 [facility] Comment on above: Performed By: #### V ITD #### [facility] [address] [address] LYMPHOCYTE % 31.3 % Normal 13.0-47.0 [facility] Comment on above: Performed By: #### V ITD #### [facility] [address] [address] MEAN SHEA HGB CONC 33.6 g/dl Normal 31.0-37.0 [facility] Comment on above: Performed By: #### V ITD #### [facility] [address] [address] MEAN CORPUSCULAR HGB 30.4 pg Normal 26.0-34.0 [facility] Comment on above: Performed By: #### V ITD #### [facility] [address] [address] MEAN CORPUSCULAR VOLUME 90.4 fl Normal 78-102 [facility] Comment on above: Performed By: #### V ITD #### [facility] [address] [address] MEAN PLATELET VOLUME 8.0 fl Normal 7.5-10.7 [facility] Comment on above: Performed By: #### V ITD #### [facility] [address] [address] MONOCYTE # 0.70 x10 3/uL Normal 0.0-1.0 [facility] Comment on above: Performed By: #### V ITD #### [facility] [address] [address] MONOCYTE % 7.1 % Normal 0.0-10.0 [facility] Comment on above: Performed By: #### V ITD #### [facility] [address] [address] NEUT# 5.80 x10 3/uL Normal 1.8-7.7 [facility] Comment on above: Performed By: #### V ITD #### [facility] [address] [address] NEUTROPHIL % 59.9 % Normal 40.0-80.0 [facility] Comment on above: Performed By: #### V ITD #### [facility] [address] [address] PLATELET 295 x10 3/uL Normal 150-350 [facility] Comment on above: Performed By: #### V ITD #### [facility] [address] [address] RED BLOOD CELL COUNT 4.69 x10 6/uL Normal 4.00-5.20 [facility] Comment on above: Performed By: #### V ITD #### [facility] [address] [address] RED CELL WIDTH 14.0 % Normal 11.5-14.5 [facility] Comment on above: Performed By: #### V ITD #### [facility] [address] [address] TOTAL EO 0.10 x10 3/uL Normal 0-1.0 [facility] Comment on above: Performed By: #### V ITD #### [facility] [address] [address] WHITE BLOOD CELL COUNT 9.7 x10 3/uL Normal 4.5-11.0 [facility] Comment on above: Performed By: #### V ITD #### [facility] [address] [address] COMPREHENSIVE METABOLICon ADJUSTED CALCIUM 9.2 MG/DL Normal [facility] Comment on above: Performed By: #### P ROF, TSH, PROFLIPID #### [facility] [address] [address] Albumin [Mass/Vol] 3.7 g/dL Normal 3.4-5.0 [facility] Comment on above: Performed By: #### P ROF, TSH, PROFLIPID #### [facility] [address] [address] Albumin/Globulin [Mass ratio] 1.0 {ratio} Low 1.1-1.8 [facility] Comment on above: Performed By: #### P ROF, TSH, PROFLIPID #### [facility] [address] [address] ALP [Catalytic activity/Vol] 140 U/L High 45-117 [facility] Comment on above: Performed By: #### P ROF, TSH, PROFLIPID #### [facility] [address] [address] ALT [Catalytic activity/Vol] 31 U/L Normal 13-61 [facility] Comment on above: Result Comment: Fals any depressed or falsely elevated results may occur on samples drawn from patients taking Sulfasalazine and Sulfapyridine. Performed By: #### P ROF, TSH, PROFLIPID #### [facility] [address] [address] Anion gap [Moles/Vol] 5.5 mmol/L Normal 0-16 [facility] Comment on above: Performed By: #### P ROF, TSH, PROFLIPID #### [facility] [address] [address] AST [Catalytic activity/Vol] 15 U/L Normal 15-37 [facility] Comment on above: Result Comment: Fals any depressed or falsely elevated results may occur on samples drawn from patients taking Sulfasalazine and Sulfapyridine. Performed By: #### P ROF, TSH, PROFLIPID #### [facility] [address] [address] Bilirubin [Mass/Vol] 0.30 mg/dL Normal 0.0-1.0 [facility] Comment on above: Result Comment: Use of this assay is not recommended for patients undergoing treatment with Eltrombopag due to the potential for falsely elevated results. Performed By: #### P ROF, TSH, PROFLIPID #### [facility] [address] [address] Calcium [Mass/Vol] 9.0 mg/dL Normal 8.5-10.1 [facility] Comment on above: Performed By: #### P ROF, TSH, PROFLIPID #### [facility] [address] [address] Chloride [Moles/Vol] 107 mmol/L Normal 98-107 [facility] Comment on above: Performed By: #### P ROF, TSH, PROFLIPID #### [facility] [address] [address] CO2 [Moles/Vol] 26 mmol/L Normal 21-32 [facility] Comment on above: Result Comment: TCO2 test measures total amount of CO2 in the blood, which occurs mostly in the form of bicarbonate (HCO3). Performed By: #### P ROF, TSH, PROFLIPID #### [facility] [address] [address] Creatinine [Mass/Vol] 0.82 mg/dL Normal 0.55-1.02 [facility] Comment on above: Performed By: #### P ROF, TSH, PROFLIPID #### [facility] [address] [address] GFR/1.73 sq M.predicted among non-blacks MDRD (S/P/Bld) [Vol rate/Area] 85 mL/min/{1.73_m2} Normal >60 [facility] Comment on above: Result Comment: Aver age GFR for 50-59 years old = 93 ml/min/1.73 sq.m Chronic Kidney Disease - GFR generally <60 ml/min/1.73 sq.m Kidney Failure - GFR generally <15 ml/min/1.73 sq.m The estimated glomerular filtration rate (eGFR) was calculated using the 2020 CKD-EPI eGFR creatinine equation, which does not include race as a factor. This equation is validated in individuals 18 years of age and older. Accurate estimation of GFR requires stable day-to-day creatinine. Creatinine-based eGFR is less accurate in patients with extremes of muscle mass, restriction of dietary protein, ingestion of creatine, extra-renal metabolism of creatinine, or treatment with medications that affect renal tubular creatinine secretion. The eGFR is normalized to a body surface area of 1.73 square meters. GFR Categories in Chronic Kidney Disease (CKD) GFR GFR (mL/min/1.73 Category: square meters): Interpretation: G1 90 or greater Normal or high* G2 60-89 Mild decrease* G3a 45-59 Mild to moderate decrease G3b 30-44 Moderate to severe decrease G4 15-29 Severe decrease G5 14 or less Kidney failure *In the absence of evidence of kidney damage, neither GFR category G1 nor G2 fulfill the criteria for CKD (Kidney Int Suppl 2013;3:1-150) The new eGFRcr equation has similar overall performance characteristics to older equations. For most patients the previous eGFR result will be similar. However, for some, the values may differ by more than 10% particularly at higher values of eGFRcr and for younger patients. Please go to eGFR calculator/National Kidney Foundation to compare this result with a previously calculated eGFR based on older equations. Performed By: #### P ROF, TSH, PROFLIPID #### [facility] [address] [address] Glucose [Mass/Vol] 128 mg/dL High 70-110 [facility] Comment on above: Result Comment: Fals any depressed or falsely elevated results may occur on samples drawn from patients taking Sulfasalazine and Sulfapyridine. ADA Guidelines for Diabetes: Fasting glucose <100 = Normal fasting glucose. Fasting glucose 100-125 = Impaired fasting glucose, also referred to as pre-diabetes. Fasting glucose >125 = Provisional diagnosis of diabetes. Diagnosis must be confirmed by repeat testing on a different day. Performed By: #### P ROF, TSH, PROFLIPID #### [facility] [address] [address] Potassium [Moles/Vol] 4.5 mmol/L Normal 3.5-5.1 [facility] Comment on above: Performed By: #### P ROF, TSH, PROFLIPID #### [facility] [address] [address] Protein [Mass/Vol] 7.4 g/dL Normal 6.4-8.2 [facility] Comment on above: Performed By: #### P ROF, TSH, PROFLIPID #### [facility] [address] [address] Sodium [Moles/Vol] 134 mmol/L Low 136-145 [facility] Comment on above: Performed By: #### P ROF, TSH, PROFLIPID #### [facility] [address] [address] Urea nitrogen [Mass/Vol] 24 mg/dL High 7-18 [facility] Comment on above: Performed By: #### P ROF, TSH, PROFLIPID #### [facility] [address] [address] Urea nitrogen/Creatinine [Mass ratio] 29.2 mg/mg Normal 0-30 [facility] Comment on above: Performed By: #### P ROF, TSH, PROFLIPID #### [facility] [address] [address] HEMOGLOBIN A1Con 06-15-2022 Glucose [Mass/Vol] 140 mg/dL Normal [facility] Comment on above: Result Comment: The estimated average glucose was calculated using the ADA equation (28.7 x HBA1c)-46.7 . Performed By: #### H BA1C #### [facility] [address] [address] HbA1c (Bld) [Mass fraction] 6.5 % High 3.8-5.6 [facility] Comment on above: Result Comment: New Reference Range effective 2020. Performed By: #### H BA1C #### [facility] [address] [address] LIPID PANELon 06-15-2022 Cholesterol [Mass/Vol] 133 mg/dL Normal <200 [facility] Comment on above: Performed By: #### P ROF, TSH, PROFLIPID #### [facility] [address] [address] Cholesterol in HDL [Mass/Vol] 49.0 mg/dL Normal >40 [facility] Comment on above: Performed By: #### P ROF, TSH, PROFLIPID #### [facility] [address] [address] LDL,CALC 67 Normal SEE COMMENT [facility] Comment on above: Result Comment: The National Cholesterol Education Program's (NCEP) Adult Treatment Panel III (ATPIII) guidelines for lipids are as follows: LDL Cholesterol - Primary Target of Therapy Target value for LDL is based on overall risk of heart disease: <100 MG/DL Is desirable if clinical atherosclerotic disease or diabetes has been diagnosed. <130 MG/DL Is desirable if 2 or more risk factors are present. Total Cholesterol <200 Desirable 200-239 Borderline High >239 High HDL Cholesterol <40 Low >59 Desirable Serum Triglycerides <150 Normal 150-199 Borderline High 200-499 High >499 Very High The lipid profile should be correlated with the presence of other risk factors for coronary heart disease. Additional information is available at: www.nhlbi.nih.gov/guidelines/cholesterol/index.htm. Performed By: #### P ROF, TSH, PROFLIPID #### [facility] [address] [address] Triglyceride [Mass/Vol] 86 mg/dL Normal <150 [facility] Comment on above: Performed By: #### P ROF, TSH, PROFLIPID #### [facility] [address] [address] TSH, 3RD GENERATIONon 2022 TSH, 3RD GENERATION 1.020 uIU/ML Normal 0.358-3. 74 0 [facility] Comment on above: Performed By: #### P ROF, TSH, PROFLIPID #### [facility] [address] [address] VITAMIN D, 25 HYDROXYon 04- VITAMIN D, 25 HYDROXY 18.00 ng/mL Low 30-100 [facility] Comment on above: Result Comment: Vitamin D Total assay is in alignment with the 25(OH) Vitamin D Reference Measurement Procedure (RMP). This assay is a certified procedure of the CDC Vitamin D Standardization-Certification Program (VDSCP). Performed By: #### V ITD #### [facility] [address] [address] [facility] 05-10-2022 [facility] Name: DAMIENMARCELLUS STEVENSRODNEY HILL Phys: Valentine Burgess : 1970 Age: 52 Sex: F Acct: [id number] Loc: [facility] Exam Date: 05/10/2022 Status: PRE REF Radiology No: Unit No: [id number] PH: [phone] Diagnosis: SCR MAMMO EXAM: [id number] *SCREEN MAMMO/COMBO HD/CAD Reason For Procedure: SCREENING PATIENT HISTORY: Patient is 52 years old and is seen for digital bilateral screen mammo/combo hd/cad for screening. Patient. The patient has the following family history of breast cancer: paternal grandmother, Breast Cancer, specified type unknown. The patient's information was entered into a reminder system with the target due date for their next mammogram. FILMS COMPARED: The present examination has been compared to prior imaging studies performed at [facility] on 09/20/2018, 09/26/2018, 10/16/2018, 07/24/2019, 04/02/2020, 10/02/2020 and 04/14/2021. VIEWS: The following views were performed:bilateral craniocaudal; bilateral craniocaudal with tomosynthesis; bilateral mediolateral; and bilateral mediolateral with tomosynthesis. Computer Aided Detection was utilized in the interpretation of this study. MAMMOGRAM FINDINGS: There are scattered areas of fibroglandular density. No masses, significant calcifications, or other abnormalities are seen. A metallic biopsy clip is present in the upper outer right breast. IMPRESSION: No radiographic abnormality is seen. Screening mammogram in 1 year is recommended. BI-RADS Category 1: Negative REPORT SIGNED IN OTHER VENDOR SYSTEM 05/10/2022 Reported By: Leatha Luke MD CC: Technologist: GEOVANNI GALLARDO RT/R Transcribed Date/Time: 05/10/2022 (2005) Display And Banner Designer: Printed Date/Time: 05/10/2022 (9814) PAGE 1 Signed Report Normal [facility] HPV High Risk by NAAon 02-19 HPV High Risk Detected Abnormal () [facility] Comment on above: Performed By: #### V ITD #### [facility] [address] [address] HPV Source Vaginal Normal () [facility] Comment on above: Performed By: #### V ITD #### [facility] [address] [address] HPV Type 16 Detected Abnormal () [facility] Comment on above: Performed By: #### V ITD #### [facility] [address] [address] HPV Type 18 Not detected Normal () [facility] Comment on above: Result Comment: This test was developed and its performance characteristics determined by [facility]. It has not been cleared or approved by the U.S. Food and Drug Administration. This test was performed in a CLIA-certified laboratory and is intended for clinical purposes. INTERPRETIVE INFORMATION: HPV by Nucleic Acid Amplification This test detects High Risk HPV types (16, 18, 31, 33, 35, 39, 45, 51, 52, 56, 58, 59, 66, and 68) and differentiates HPV 16 and 18 associated with cervical cancer and its precursor lesions. Sensitivity may be affected by specimen collection methods, stage of infection, and the presence of interfering substances. Results should be interpreted in conjunction with other available laboratory and clinical data. A negative high-risk HPV result does not exclude the presence of other high-risk HPV types, the possibility of future cytologic abnormalities, underlying CIN2-3, or cancer. This test is intended for medical purposes only and is not valid for the evaluation of suspected sexual abuse or for other forensic purposes. HPV testing should not be used for screening or management of atypical squamous cells of undetermined significance (ASCUS) in women under age 21. Performed By: [facility] [address] [place] [address] Heel Finisher: Omar Guevara MD, PhD Performed By: #### V ITD #### [facility] [address] [address] FAMILY CONSULTANT CYTOLOGYon 02-16-2022 FAMILY CONSULTANT CYTOLOGY ----- RUN DATE: 02/25/22 Laboratory LIVE PAGE 1 RUN TIME: 944 Specimen Inquiry RUN USER: INTERFACE [facility] Department of Laboratories [address] [place], [place] [id number] PATIENT: PUJA WYMAN LOC: [facility] U #: [id number] HOME PHONE: AGE/SX: 51/F ROOM: RE02/16/[address] [facility] [address]: Valentine Burgess : 68 BED: DIS: STATUS: REG CLI LAB O/S: Specimen : [id number] Date Collected: 02/16/22 Surgeon : Valentine Burgess Date Received : 02/17/22 Date Reported : 02/25/22 ===== SPECIMEN TYPE: Thinprep, VAGINAL NUMBER OF SLIDES: 1 COLLECTION DATE: 02/16/22 LMP: HYST OTHER: Z01.419; Z12.72 : ====== DIAGNOSIS EPITHELIAL CELL ABNORMALITY: ATYPICAL SQUAMOUS CELLS OF UNDETERMINED SIGNIFICANCE. SPECIMEN SAMPLE ADEQUATE FOR EVALUATION, ENDOCERVICAL CELLS (TRANSFORMATION ZONE) NOT PRESENT, VAGINAL SPECIMEN. ====== PREVIOUS CYTOLOGY HISTORY DATE UNSAT NEG ASCUS ASC-H SHALOM LSIL HSIL CA ADENOCA 02/17/21 X 02/13/20 X 01/31/19 X ====== ESOTERIC TESTS Reference Range LABORATORY Date Time Test Result Flag Normal Range 02/16/22 UNK HPV High Risk Detected A () 02/16/22 UNK HPV Type 16 Detected A () 02/16/22 UNK HPV Type 18 Not Detected () This test was developed and its performance characteristics determined by [employer] [facility]. It has not been cleared or approved by the U.S. Food and Drug Administration. This test was performed in a CLIA-certified laboratory and is intended for clinical purposes. INTERPRETIVE INFORMATION: HPV by Nucleic Acid Amplification CONTINUED ON NEXT PAGE RUN DATE: 02/25/22 Laboratory LIVE PAGE 2 RUN TIME: 944 Specimen Inquiry RUN USER: INTERFACE SPEC #: [id number] PATIENT: PUJA WYMAN #[id number] (Continued) Specimen : [id number] Date Collected: 02/16/22 Surgeon : Valentine Burgess Date Received : 02/17/22 Date Reported : 02/25/22 ===== ESOTERIC TESTS: (Continued) This test detects High Risk HPV types (16, 18, 31, 33, 35, 39, 45, 51, 52, 56, 58, 59, 66, and 68) and differentiates HPV 16 and 18 associated with cervical cancer and its precursor lesions. Sensitivity may be affected by specimen collection methods, stage of infection, and the presence of interfering substances. Results should be interpreted in conjunction with other available laboratory and clinical data. A negative high-risk HPV result does not exclude the presence of other high-risk HPV types, the possibility of future cytologic abnormalities, underlying CIN2-3, or cancer. This test is intended for medical purposes only and is not valid for the evaluation of suspected sexual abuse or for other forensic purposes. HPV testing should not be used for screening or management of atypical squamous cells of undetermined significance (ASCUS) in women under age 21. Performed By: [facility] [address] [place], [place] [id number] Heel Finisher: Omar Guevara MD, PhD ===== NOTE: The pap smear is a screening test for the detection of cervical cancer and its precursors. The test should be done at regular intervals since the pap test is subject to false positive and false negative results. If clinically indicated, further investigation is recommended. ===== VIKKI Jason(ASCP) 02/25/22 Signed-Out: Monique Bridges (signature on file) 02/25/22 My electronic signature is attestation that I have personally reviewed the submitted material(s) and the final report reflects that evaluation. END OF REPORT Normal [facility] Comment on above: Performed By: #### G Y #### [facility] [address] [address] VZV, PCRon 11-12-2021 VZV, PCR Not detected [facility] Comment on above: Result Comment: NOT DETECTED - A negative result does not rule out the presence of PCR inhibitors in the patient specimen or assay specific nucleic acid in concentrations below the level of detection by the assay. INTERPRETIVE INFORMATION: Varicella-Zoster Virus by PCR This test was developed and its performance characteristics determined by [employer] [facility]. It has not been cleared or approved by the US Food and Drug Administration. This test was performed in a CLIA certified laboratory and is intended for clinical purposes. Performed by [facility], [address] [place] [id number] [email or web address], Omar Guevara MD, PHD - Lab. Director Performed By: #### V ZFRANCIA #### The performing lab is in the report. VZV, Source pustule [facility] Comment on above: Performed By: #### V ZVAKelly #### The performing lab is in the report. Miscellaneous Referred Testo n 11-11-2021 Result 1: See below [facility] Comment on above: Result Comment: Monk eypox Virus DNA, Qual, PCR Source: lesion Orthopoxvirus, DNA, Qual, PCR: Not Detected Monkeypoxvirus DNA, Qual, PCR: Not Detected Reference Range: Not Detected The Monkeypox Virus DNA Real-time PCR is intended for the qualitative detection of non-variola Orthopoxviruses and Monkeypox virus (West clade) DNA using swabs from human pustular or vesicular rash specimens. These results must be used in conjunction with clinical observations and epidemiological risk factors. Due to the current public health emergency, [facility] is accepting samples from appropriate clinical sources (swabs of lesions) collected using a wide variety of swabs and viral transport media for Monkeypox testing, which may not have the equivalent ingredients as the media validated by [facility]. Not detected test results derived from specimens received in non-validated media, including non-commercially manufactured viral collection kits, should be cautiously evaluated. Extra precautions should be considered such as additional clinical monitoring and collection of an additional specimen if clinically indicated. For additional information, please refer to [email or web address]-professionals/cli gzveb-fdnsqykdx-hpxogk/faq/[email or web address] (this link is being provided for informational/educational purposes only). This test was developed and its analytical performance characteristics have been determined by [facility]. It has not been cleared or approved by the U.S. Food and Drug Administration. This assay has been validated pursuant to the CLIA regulations and is used for clinical purposes. Performed By: #### M SO #### [facility] GENER[facility]END[facility] Test Name Monkeypox Normal [facility] Comment on above: Performed By: #### M SO #### [facility] GENER[facility] SENDOUT HSV w/Rfx to Subtype PCRon 0 11-09-2021 HSV 1 Subtype by PCR Negative Normal [facility] Comment on above: Performed By: #### H SVAO #### [facility] HSV 2 Subtype by PCR Negative [facility] Comment on above: Result Comment: Methodology: Real-time PCR Test performed by [facility]. Performed By: #### H SVAO #### [facility] HSV by PCR See Below Normal [facility] Comment on above: Performed By: #### H SVAO #### [facility] HSV Subtype Source PUSTULE Normal [facility] Comment on above: Performed By: #### H SVAO #### [facility] Complete Urinalysison 2021 Appearance (U) Clear Normal Clear [facility] Comment on above: Result Comment: . Performed By: #### C UA2 #### [facility] [address] [place] [address] Bilirubin,Urine Negative Normal Negative [facility] Comment on above: Result Comment: . Performed By: #### C UA2 #### [facility] [address] [place] [address] Color (U) Colorless Normal Lt. Yellow [facility] Comment on above: Result Comment: . Performed By: #### C UA2 #### [facility] [address] [place] [address] Glucose Ql (U) Normal Normal Normal (<70) [facility] Comment on above: Result Comment: . Performed By: #### C UA2 #### [facility] [address] [place] [address] Ketone,Urine Negative Normal Negative [facility] Comment on above: Result Comment: . Performed By: #### C UA2 #### [facility] [address] [place] [address] Leukocytes,Urine Negative Normal Negative [facility] Comment on above: Result Comment: . Performed By: #### C UA2 #### [facility] [address] [place] [address] Nitrites,Urine Negative Normal Negative [facility] Comment on above: Result Comment: . Performed By: #### C UA2 #### [facility] [address] [place] [address] Occult Blood,Urine Negative Normal Negative [facility] Comment on above: Result Comment: . Performed By: #### C UA2 #### [facility] [address] [place] [address] pH,Urine 5.0 Normal 5.0-8.0 [facility] Comment on above: Result Comment: . Performed By: #### C UA2 #### [facility] [address] [place] [address] Specific [place],Urine 1.006 Normal 1.005 - 1.030 [facility] Comment on above: Result Comment: . Performed By: #### C UA2 #### [facility] [address] [place] [address] Total Protein,Urine Negative Normal Negative [facility] Comment on above: Result Comment: . Performed By: #### C UA2 #### [facility] [address] [place] [address] Urobilinogen,Urine Normal Normal Normal (0-1) [facility] Comment on above: Result Comment: . Performed By: #### C UA2 #### [facility] [employer] [facility] [address] [place] [address] ED Provider Noteon ED Provider Note RIA SARAYBinu ED eMERGENCY dEPARTMENT eNCOUnter Pt Name: Puja Wyman Birthdate 1970 Date of evaluation: 11/08/2021 Provider: Ruben Horan MD CHIEF COMPLAINT Chief Complaint Patient presents with Urinary Tract Infection Rash Other Herpes outbreak HISTORY OF PRESENT ILLNESS (Location/Symptom, Timing/Onset, Context/Setting, Quality, Duration, Modifying Factors, Severity) Note limiting factors. HPI Puja Wyman is a 51 y.o.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 11-13-2024 Blood count complete auto&auto difrntl wbc She Marte Ma, MD Work Phone: Start: 10-23-2024 Glucose quantitative blood xcpt reagent strip Xi Gillespie MD Work Phone: Start: 10-23-2024 Glucose quantitative blood xcpt reagent strip Xi Gillespie MD Work Phone: Start: 10-23-2024 Glucose quantitative blood xcpt reagent strip Xi Gillespie MD Work Phone: Start: 10-23-2024 Comprehensive metabo lic panel Xi Gillespie MD Work Phone: Start: 10-22-2024 Glucose quantitative blood xcpt reagent strip Xi Gillespie MD Work Phone: Start: 10-22-2024 Ct thorax w/contrast material Xi Gillespie MD Work Phone: Start: 10-22-2024 Glucose quantitative blood xcpt reagent strip Xi Gillespie MD Work Phone: Start: 10-22-2024 End: 10-22-2024 Glucose quantitative blood xcpt reagent strip Xi Gillespie MD Work Phone: Start: 10-22-2024 Glucose quantitative blood xcpt reagent strip Xi Gillespie MD Work Phone: Start: 10-22-2024 Glucose quantitative blood xcpt reagent strip Xi Gillespie MD Work Phone: Start: 10-22-2024 Comprehensive metabo lic panel Xi Gillespie MD Work Phone: Start: 10-21-2024 End: 10-21-2024 Glucose quantitative blood xcpt reagent strip Xi Gillespie MD Work Phone: Start: 10-21-2024 Glucose quantitative blood xcpt reagent strip Xi Gillespie MD Work Phone: Start: 10-21-2024 Glucose quantitative blood xcpt reagent strip Xi Gillespie MD Work Phone: Start: 10-21-2024 Glucose quantitative blood xcpt reagent strip Xi Gillespie MD Work Phone: Start: 10-21-2024 Radiologic exam abdo men 1 brayden Gan MD Work Phone: Start: 10-21-2024 Glucose quantitative blood xcpt reagent strip Hannah Broussard MD Work Phone: Start: 10-21-2024 Basic metabolic pane l calcium total Hannah Broussard MD Work Phone: Start: 10-20-2024 Glucose quantitative blood xcpt reagent strip Hannah Broussard MD Work Phone: Start: 10-20-2024 Glucose quantitative blood xcpt reagent strip Hannah Broussard MD Work Phone: Start: 10-20-2024 Glucose quantitative blood xcpt reagent strip Hannah Broussard MD Work Phone: Start: 10-20-2024 Glucose quantitative blood xcpt reagent strip Hannah Broussard MD Work Phone: Start: 10-20-2024 End: 10-20-2024 Glucose quantitative blood xcpt reagent strip Hannah Broussard MD Work Phone: Start: 10-20-2024 Glucose quantitative blood xcpt reagent strip Hannah Broussard MD Work Phone: Start: 10-20-2024 Basic metabolic pane l calcium total Alen Rivera MD Work Phone: Start: 10-19-2024 Glucose quantitative blood xcpt reagent strip Hannah Broussard MD Work Phone: Start: 10-19-2024 Glucose quantitative blood xcpt reagent strip Hannah Broussard MD Work Phone: Start: 10-19-2024 Glucose quantitative blood xcpt reagent strip Hannah Broussard MD Work Phone: Start: 10-19-2024 Glucose quantitative blood xcpt reagent strip Hannah Broussard MD Work Phone: Start: 10-19-2024 Glucose quantitative blood xcpt reagent strip Hannah Broussard MD Work Phone: Start: 10-19-2024 Basic metabolic pane l calcium total Alen Rivera MD Work Phone: Start: 10-18-2024 Glucose quantitative blood xcpt reagent strip Alen Rivera MD Work Phone: Start: 10-18-2024 Glucose quantitative blood xcpt reagent strip Alen Rivera MD Work Phone: Start: 10-18-2024 Glucose quantitative blood xcpt reagent strip Alen Rivera MD Work Phone: Start: 10-18-2024 End: 10-18-2024 Glucose quantitative blood xcpt reagent strip Alen Rivera MD Work Phone: Start: 10-18-2024 Basic metabolic pane l calcium total Alen Rivera MD Work Phone: Start: 10-17-2024 Glucose quantitative blood xcpt reagent strip Alen Rivera MD Work Phone: Start: 10-17-2024 Ecg routine ecg w/le ast 12 lds trcg only w/o i&r Cyndee Gan MD Work Phone: Start: 10-17-2024 Glucose quantitative blood xcpt reagent strip Alen Rivera MD Work Phone: Start: 10-17-2024 Glucose quantitative blood xcpt reagent strip Alen Rivera MD Work Phone: Start: 10-17-2024 Glucose quantitative blood xcpt reagent strip Alen Rivera MD Work Phone: Start: 10-17-2024 Glucose quantitative blood xcpt reagent strip Alen Rivera MD Work Phone: Start: 10-17-2024 Basic metabolic pane l calcium total Alen Rivera MD Work Phone: Start: 10-16-2024 Glucose quantitative blood xcpt reagent strip Alen Rivera MD Work Phone: Start: 10-16-2024 Glucose quantitative blood xcpt reagent strip Alen Rivera MD Work Phone: Start: 10-16-2024 Glucose quantitative blood xcpt reagent strip Alen Rivera MD Work Phone: Start: 10-16-2024 End: 10-16-2024 Basic metabolic panel calcium total Cyndee Elvia WARD Work Phone: Start: 10-16-2024 Blood gases any comb ination ph pco2 po2 co2 hco3 Cyndee Elvia WARD Work Phone: Start: 10-16-2024 Blood gases any comb ination ph pco2 po2 co2 hco3 Cyndee Elvia WARD Work Phone: Start: 10-16-2024 Glucose quantitative blood xcpt reagent strip Wyatt Holman MD Work Phone: Start: 10-16-2024 End: 10-16-2024 Basic metabolic panel calcium total Cyndee Elvia WARD Work Phone: Start: 10-16-2024 Blood gases any comb ination ph pco2 po2 co2 hco3 Cyndee Elvia WARD Work Phone: Start: 10-16-2024 End: 10-16-2024 Assay of troponin quantitative Wyatt Holman MD Work Phone: Start: 10-16-2024 Urnls dip stick/tabl et rgnt auto w/o microscopy Margoth D'Jag PA-C Work Phone: Start: 10-16-2024 Ecg routine ecg w/le ast 12 lds trcg only w/o i&r Wyatt Holman MD Work Phone: Start: 10-16-2024 Assay of troponin quantitative Wyatt Holman MD Work Phone: Start: 10-16-2024 Blood gases any comb ination ph pco2 po2 co2 hco3 Wyatt Holman MD Work Phone: Start: 10-16-2024 Ct abdomen & pelvis w/contrast material Margoth D'Jag PA-C Work Phone: Start: 10-15-2024 Comprehensive metabo lic panel Margoth D'Jag PA-C Work Phone: Start: 05-17-2024 STREP A MOLECULAR (POC) Sheree Alston APRN.[employer] Work Phone: Start: 07-24-2023 Radex hand minimum 3 views Pearl Orlando PA-C Work Phone: Start: 09-03-2022 CT of abdomen and pe lvis without contrast Start: 09-02-2022 Urnls dip stick/tabl et rgnt auto w/o microscopy Paulina Cerna PA-C Work Phone: Start: 07-30-2022 CT of head without contrast Start: 06-15-2022 Blood count hemoglobin Zaire Dahiana Comment on above: Performed By: #### V ITD #### [place] [address] Start: 11-08-2021 Urnls dip stick/tabl et rgnt auto w/o microscopy Ruben Horan MD Work Phone: Start: 09-12-2012 Mammography [facility] [employer] Work Phone: Plan of Treatment Date Care Activity Detail Author Start: 2044 RSV Immunization for Adults (1 - 1-dose 75+ series) RSV Immunization for Adults (1 - 1-dose 75+ series) [facility] Start: 2044 [facility] Start: 11-07-2029 DTaP/Tdap/Td Vaccine s (2 - Td or Tdap) DTaP/Tdap/Td Vaccines (2 - Td or Tdap) [facility] Start: 11-07-2029 Urine microalbumin profile DTaP,Tdap,Td Vaccine (2 - Td or Tdap) [facility] Start: 11-07-2029 [facility] Start: 2029 RSV Immunization age d 60 or older (1 - 1-dose 60+ series) RSV Immunization aged 60 or older (1 - 1-dose 60+ series) [facility] Start: 11-14-2027 Diabetes Screening Diabetes Screenin [facility] Start: 10-24-2027 Diabetes Screening Diabetes Screenin g [facility] Start: 05-02-2027 Diabetes Screening Diabetes Screenin g [facility] Start: 10-22-2025 Screening for malign ant neoplasm of lung [facility] Start: 10-15-2025 Hemoglobin A1c measurement [facility] Start: 04-19-2025 Depression Monitoring Depression [facility] Start: 04-19-2025 [facility] Start: 12-09-2024 End: 12-09-2024 Patient encounter procedure 12/09/2024 2:30 PM EDT Office Visit Endocrinology [address] [place] [address] Geri Hung MD [address] [place] [address] Type 2 diabetes (HCC) [E11.9]; Malignant neoplasm of pancreas, unspecified location of malignancy (HCC) [C25.9] Endocrinology Comment on above: Type 2 diabetes (HCC ) [E11.9]; Malignant neoplasm of pancreas, unspecified location of malignancy (HCC) [C25.9] Start: 11-27-2024 End: 11-27-2024 ambulatory 11/27/2024 1:45 PM EDT [facility] Hematology/Oncology [address] [place] [id number] B GEM 2 HR [place] Hematology/Oncology Comment on above: B GEM 2 HR TX Start: 11-20-2024 End: 11-20-2024 ambulatory 11/20/2024 8:45 AM EDT [facility]fusion Center Hematology/Oncology [address] [place] [id number] B GEM 2 HR TX Hematology/Oncology Comment on above: B GEM 2 HR TX Start: 11-20-2024 End: 11-20-2024 Follow-up encounter 11/20/2024 8:00 AM EDT Visit (SP) Office Palliative Medicine [id number] [place] [id number] Leodan Seo MD [address] [place] [address] PALL MED FOLLOW UP Palliative Medicine Comment on above: PALL MED FOLLOW UP Start: 11-13-2024 End: 11-13-2024 ambulatory 11/13/2024 11:15 AM EDT Infusion Center Hematology/Oncology [address] [place] [id number] B GEM ABR 3 HR TX Hematology/Oncology Comment on above: B GEM ABR 3 HR TX Start: 11-13-2024 End: 11-13-2024 ambulatory Hematology/Oncology Comment on above: LABS PER WQ *DR DRAPER PT* Start: 11-08-2024 End: 11-22-2024 MISC SEND OUT TST 1 MISC SEND OUT TST 1 Lab Routine Cancer of pancreas, tail (HCC) Expected: 11/08/2024, Expires: 11/22/2024 [facility] Work Phone: Comment on above: Expected: 11/08/2024 , Expires: 11/22/2024 Start: 11-05-2024 End: 11-05-2024 Patient encounter procedure 11/05/2024 11:00 AM EDT Visit (SP) Office Palliative Medicine [address] [place] [address] Leodan Seo MD [address] [place] [address] CONSULT TO PALL MED Palliative Medicine Comment on above: CONSULT TO PALL MED Start: 11-01-2024 End: 11-01-2024 ambulatory 11/01/2024 2:30 PM EDT Visit (SP) Office Hematology/Oncology [address] [place] [address] She Draper MD [address] [place] [address] PANCREATIC CANCER Hematology/Oncology Comment on above: PANCREATIC CANCER Start: 11-01-2024 End: 01-31-2025 [id number] CDX [id number] CDX Lab Routine Cancer of pancreas, tail (HCC) Expected: 11/01/2024, Expires: 01/31/2025 [facility] Comment on above: Expected: 11/01/2024 , Expires: 01/31/2025 Start: 10-28-2024 COVID-19 Vaccine () COVID-19 Vaccine () Serious Parody Start: 10-28-2024 Influenza vaccination Influenza Vacc ine (#1) [facility] Start: 10-28-2024 [facility] Start: 10-29-2023 Influenza vaccination Influenz a Vaccine (Season Ended) [facility] Start: 10-29-2023 [facility] Start: 03-02-2023 Screening for malign ant neoplasm of colon [facility] Start: 10-28-2022 COVID-19 Vaccine ( season) COVID-19 Vaccine ( season) [facility] Start: 10-28-2022 Influenza vaccination INFLUENZA (#1) [facility] Start: 09-03-2022 Bacteria identified in Urine by Culture Urine Culture [facility] Start: 09-03-2022 [facility] Start: 02-27-2022 DEPRESSION ASSESSMENT DEPRESSION ASS ESSMENT [facility] Start: 10-28-2021 Influenza vaccination Flu vaccine (# 1) [facility] Start: 03-20-2020 Pneumococcal Vaccine : 50+ Years (2 of 2 - PCV) Pneumococcal Vaccine: 50+ Years (2 of 2 - PCV) [facility] Start: 03-20-2020 Pneumococcal Vaccine : Pediatrics (0 to 5 Years) and At-Risk Patients (6 to 64 Years) (2 of 2 - PCV) Pneumococcal Vaccine: Pediatrics (0 to 5 Years) and At-Risk Patients (6 to 64 Years) (2 of 2 - PCV) [facility] Start: 03-20-2020 [facility] Start: 2019 Screening for malign ant neoplasm of breast Breast cancer screen [facility] Start: 2019 Shingles vaccine (1 of 2) Shingles vaccine (1 of 2) [facility] Start: 2019 SHINGRIX VACCINE (1 of 2) SHINGRIX VACCINE (1 of 2) [facility] Start: 06-06-2018 PAP TESTING PAP TESTING [facility] Start: 08-21-2017 Lipid panel Lipids [facility] Start: 06-06-2016 Screening for malign ant neoplasm of cervix Cervical Cancer Screening [facility] Start: 06-06-2014 Screening for malign ant neoplasm of cervix Cervical Cancer Screening [facility] Start: 2014 COLOGUARD (FIT-DNA) COLOGUARD (FIT-D NA) [facility] Start: 2014 Colonoscopy COLONOSCOPY [facility] Start: 2014 COLORECTAL CANCER SCREENING COLORECTAL CANCER SCREENING [facility] Start: [address] COLONOGRAPHY [facility] Start: 2014 DIABETES SCREEN DIABETES SCREEN [facility] Start: 2014 FECAL OCCULT BLOOD FECAL OCCULT BLOO D [facility] Start: 2014 Lipid panel Lipid Screening [facility] Start: 2014 LIPID SCREEN LIPID SCREEN [facility] Start: 2014 Screening for malign ant neoplasm of colon [facility] Start: 2014 SIGMOIDOSCOPY SIGMOIDOSCOPY [facility] Start: 09-12-2013 Mammography MAMMOGRAM [facility] Start: 09-12-2013 Screening for malign ant neoplasm of breast Mammogram Screening [facility] Start: 2009 Screening for malign ant neoplasm of breast [facility] Start: 05-09-2007 Hepatitis B Vaccine (2 of 3 - 19+ 3-dose series) Hepatitis B Vaccine (2 of 3 - 19+ 3-dose series) [facility] Start: 05-09-2007 Hepatitis B Vaccines (2 of 3 - 19+ 3-dose series) Hepatitis B Vaccines (2 of 3 - 19+ 3-dose series) [facility] Start: 05-09-2007 [facility] Start: 1999 HPV TESTING HPV TESTING [facility] Start: 1999 Screening for malign ant neoplasm of cervix [facility] Start: 1990 Screening for malign ant neoplasm of cervix Pap smear [facility] Start: 1988 DTaP/Tdap/Td vaccine (1 - Tdap) DTaP/Tdap/Td vaccine (1 - Tdap) [facility] Start: 1988 Urine microalbumin profile DTAP,TDAP,TD (1 - Tdap) [facility] Start: 1987 Anxiety Screening Anxiety Screening [facility] Start: 1987 Depression Screening Depression Scre ening [facility] Start: 1987 Diabetes: Estimated Glomerular Filtration Rate for Kidney Health Diabetes: Estimated Glomerular Filtration Rate for Kidney Health [facility] Start: 1987 Diabetes: Urine Albumin-Creatinine Ratio for Kidney Health Diabetes: Urine Albumin-Creatinine Ratio for Kidney Health [facility] Start: 1987 Hepatitis C screening S [facility] Start: 1987 HEPATITIS C SCREENING HEPATITIS C SC REENING [facility] Start: 1987 HIV SCREENING HIV SCREENING [facility] Start: 1987 HIV screening HIV Screening [facility] Start: 1984 HIV screening HIV screen [facility] Start: 1981 Depression Monitoring Depression Mon itoring [facility] Start: 1979 Diabetic foot examination [facility] Start: [address] [facility] Start: 1979 Preventive dental service [facility] Start: 1975 PNEUMOCOCCAL (1 - PCV) PNEUMOCOCCAL (1 - PCV) [facility] Start: 1970 MMR Vaccines (1 of 1 - Standard series) MMR Vaccines (1 of 1 - Standard series) [facility] Start: 1970 [facility] Start: 1969 COVID-19 Vaccine (#1) COVID-19 Vacci ne (#1) [facility] Start: 1969 Hemoglobin A1c measurement Diabetes: Hemoglobin A1C [facility] Start: 1969 HEPATITIS B (1 of 3 - 3-dose series) HEPATITIS B (1 of 3 - 3-dose series) [facility] Start: 1969 HIV screening [facility] Start: 1969 Lipid panel [facility] Start: 1969 Screening for malign ant neoplasm of colon [facility] Bacteria identified in Urine by Culture URINE CULTURE Microbiology Routine Urinary frequency 09/02/2022 3:08 PM EDT [facility] Work Phone: End: 11-01-2025 Cancer Ag 19-9 [Units/volume] in Serum or Plasma CA 19-9 Lab Routine Cancer of pancreas, tail (HCC) Once per month for 6 Occurrences starting 11/01/2024 until 11/01/2025 [facility] Comment on above: Once per month for 6 Occurrences starting 11/01/2024 until 11/01/2025 Cancer Ag 19-9 [Units/volume] in Serum or Plasma CA 19-9 Lab Routine Cancer of pancreas, tail (HCC) 11/13/2024 9:45 AM EDT [facility] Work Phone: End: 11-01-2025 CBC W Auto Differential panel - Blood COMPLETE BLOOD COUNT AND DIFFERENTIAL Lab Routine Cancer of pancreas, tail (HCC) Once per week for 24 Occurrences starting 11/01/2024 until 11/01/2025 [facility] Work Phone: Comment on above: Once per week for 24 Occurrences starting 11/01/2024 until 11/01/2025 End: 11-01-2025 Comprehensive metabolic 2000 panel - Serum or Plasma COMPREHENSIVE METABOLIC PANEL Lab Routine Cancer of pancreas, tail (HCC) Once per week for 24 Occurrences starting 11/01/2024 until 11/01/2025 [facility] Comment on above: Once per week for 24 Occurrences starting 11/01/2024 until 11/01/2025 End: 11-08-2021 Culture, Virus, Varicella Zoster [employer] Work Phone: Comment on above: One Time for 1 Occur rences starting 11/08/2021 until 11/08/2021 [id number] CDX [id number] CDX Lab Routine Cancer of pancreas, tail (HCC) 11/13/2024 9:45 AM EDT [facility] End: 11-08-2021 Herpes Simplex Virus By PCR [email or web address] Work Phone: Comment on above: Once for 1 Occurrenc es starting 11/08/2021 until 11/08/2021 End: 11-08-2021 HSV 1/2, DNA PCR HSV 1/2, DNA PCR Lab Routine One Time for 1 Occurrences starting 11/08/2021 until 11/08/2021 [employer] Work Phone: Comment on above: One Time for 1 Occur rences starting 11/08/2021 until 11/08/2021 MISC SEND OUT TST 1 MISC SEND OU T TST 1 Lab Routine Cancer of pancreas, tail (HCC) 11/13/2024 9:45 AM EDT [facility] End: 11-08-2021 MISCELLANEOUS TESTING MISCELLANEOUS TESTING Lab Routine One Time for 1 Occurrences starting 11/08/2021 until 11/08/2021 [employer] Work Phone: Comment on above: One Time for 1 Occur rences starting 11/08/2021 until 11/08/2021 Patient Education [facility] Work Phone: Patient referral [facility] Work Phone: Stroke after atrial fibrillation 5 year risk [#] Rajendra 2002 IR PORTOCATH PLACEMENT Radiology Routine Cancer of pancreas, tail (HCC) Ordered: 11/13/2024 [facility] Work Phone: Comment on above: Ordered: 11/13/2024 [facility] Immunizations Immunization Date Immunization Notes Care Provider Fa kvng 11-21-2023 influenza virus vacc ine, unspecified formulation Karen Pena DO Work Phone: [facility] 11-30-2021 influenza virus vacc ine, unspecified formulation Donna Kumar DO [facility] 11-26-2016 influenza virus vacc ine, unspecified formulation Ruben Horan MD Work Phone: [facility] Work Phone: 08-04-2016 pneumococcal polysaccharide vaccine, 23 valent Ruben Horan MD Work Phone: [facility] Work Phone: 11-19-2015 Influenza Vaccine, unspecified formulation Ruben Horan MD Work Phone: [facility] Payers Date Payer Category Payer Private Health Insurance [id number] 2023 Self-pay 2023 Unknown [id number] 2023 Unknown 2022 Medicaid [id number] 2022 Medicaid HMO [id number] 2016 Unknown [id number] 1969 Unknown [id number] 2.16.8 [id number] 1969 Unknown [id number] 2.16. [id number] Unknown [id number] 2.16. [id number] Unknown [id number] 2.16. [id number] Unknown [id number] 2.16. [id number] Unknown [id number] 2.16. [id number] Unknown [id number] 2.16. [id number] Unknown [id number] 2.16. [id number] Unknown [id number] 2.16.8 [id number] Unknown [id number] 2.16.8 [id number] Unknown [id number] 2.16.8 [id number] Unknown [id number] 2.16.8 [id number] Social History Date Type Detail Facility Start: 1983 End: 10-04-2024 Tobacco smoking status [facility] Smokes tobacco daily [facility] Start: 1983 History of tobacco use Cigarette Smo ker [facility] Work Phone: Start: 11-08-2021 End: 10-03-2024 Cigarettes smoked current (pack per day) - Reported 0.5 [facility] Work Phone: Start: 11-08-2021 End: 10-04-2024 Tobacco use and exposure Smokeless tobacco non-user [email or web address] Work Phone: Start: 11-08-2021 End: 02-15-2022 Alcohol intake Current drinker of alcohol (finding) [facility] Work Phone: Start: 11-08-2021 History SDOH Alcohol Comment Occasional [facility] Work Phone: Start: 1970 Sex Assigned At Not on file S [facility] Work Phone: Start: 10-29-2021 End: 11-08-2021 Exposure to SARS-CoV-2 (event) Not sure [facility] Work Phone: Start: 11-20-2021 End: 09-03-2022 Tobacco smoking status NHIS Unknown if ever smoked [facility] Start: 1970 Sex Assigned At Female [facility] Start: 09-02-2022 End: 10-16-2024 Alcohol intake Ex-drinker (finding) [facility] Start: 09-02-2022 End: 10-03-2024 Tobacco use panel [facility] How often to you hav e a drink containing alcohol? Never [facility] Start: 09-15-2014 How many standard drinks containing alcohol do you have on a typical day? Patient does not drink [facility] History of tobacco use Passive smoker [facility] [employer] Has the [employer], or water company threatened to shut off services in your home in past 12Mo No [facility] [employer] (I/We) worried whekartik er (my/our) food would run out before (I/we) got money to buy more. Never true [facility] Start: 10-04-2024 Tobacco Comment Started at 13, 0.5- 2 PPD, quit during her three pregnancies and one additional quit attempt of 6 months, currently 0.5 PPD. 10/04/24 [facility] Start: 09-27-2021 Sex Female (finding) [facility] Start: 10-19-2024 Gender identity Identifies as female gender (finding) [facility] Start: 10-19-2024 Sexual orientation Heterosexual (fin ding) [facility] Goals Date Patient Goal Desired Activity /State Comment on above: Formatting of this n ote might be different from the original. Patient Self-Management Goal for Health Maintenance Goal: I will monitor my blood pressure and report to my PCP if I have 3 consecutive readings of 140/90 or above Barriers: none Plan for overcoming my barriers: SN/A Confidence: 12/06 Anticipated Goal Completion Date: Functional Status Date Assessment Result Facility 10-15-2024 Total score [AUDIT-C] [facility] 10-04-2024 Are you deaf, or do you have serious difficulty hearing No [facility] 10-04-2024 Are you blind, or do you have serious difficulty seeing, even when wearing glasses No [facility] 10-04-2024 Do you have serious difficulty walking or climbing stairs [facility] 10-04-2024 Do you have difficulty dressing or bathin g [facility] 10-04-2024 Because of a physica l, mental, or emotional condition, do you have difficulty doing errands alone such as visiting a physician's office or shopping [facility] Mental Status Date Assessment Result Facility 10-04-2024 Because of a physica l, mental, or emotional condition, do you have serious difficulty concentrating, remembering, or making decisions [facility] 09-03-2022 Cognitive function Level Of Cons ciousness Awake;Alert;Appropriate;Fol lows Commands [facility] Work Phone: 07-30-2022 Cognitive function Voice/Name [facility] Work Phone: Clinical Notes 09-02-2022 to 01-08-2025 Christine Hubbard LPN - 11/13/2024 10:09 AM EDShe Miranda MD - 11/13/2024 10:00 AM EDTTelephone Encounter - Nandini De La Paz RN - 11/12/2024 1:48 PM EDTPatient InstructionsPatient Instructions Note Date & Type Note Facility 01-08-2025 Note HNO ID: [id number] Author: MELBA WOOD RN Service: Nursing Author Type: Registered Nurse Type: Progress Notes Filed: 01/08/2025 11:57 Note Text: Radiology Service Progress Note DATE OF SERVICE: January 08, 2025 TIME: 11:48 AM PATIENT WEIGHT: 107 LBS PATIENT IDENTITY VERIFICATION COMPLETED USING TWO (2) STANDARD IDENTIFIERS: Name and Date of confirmed by patient verbally and Name and Date of confirmed by identification band. FALL SCREENING: Has the patient had 2 falls in the last year or 1 fall with injury or currently using an Ambulatory Assistive Device (Walker, Cane, Wheelchair, Crutches, etc.)? No PATIENT GENDER DATA: Assigned female at . status: : No status: NO. ALLERGIES: Reviewed and unchanged CONTRAST ALLERGY: No EXAM: CT -CONTRAST INDUCED NEPHROPATHY RISK FACTORS: Diabetic: Yes. Current medication(s): Lantus/ Humalog. Patient currently has insulin pump?: No., History of Kidney surgery, Kidney neoplasm, Liver disease, and/or any recent Nephrotoxic Chemotherapy or other Nephrotoxic medications, and Congestive Heart Failure (CHF) CREATININE: Creatinine Date Value Ref Range Status 01/08/2025 0.78 0.58 - 0.96 mg/dL Final 12/25/2024 0.74 0.58 - 0.96 mg/dL Final 12/18/2024 0.49 (L) 0.58 - 0.96 mg/dL Final Estimated Glomerular Filtration Rate Date Value Ref Range Status 01/08/2025 90 >=60 mL/min/1.73m? Final Comment: Estimated Glomerular Filtration Rate (eGFR) is calculated using the 2020 CKD-EPI creatinine equation. This equation utilizes serum creatinine, sex, and age as parameters. The creatinine assay has traceable calibration to isotope dilution-mass spectrometry. Refer to KDIGO guidelines for clinical interpretation. In patients with unstable renal function, e.g. those with acute kidney injury, the eGFR may not accurately reflect actual GFR. P.O.C.T. RESULTS: N/A January 08, 2025 TREATMENT: N/A IV SITE: Ambulatory: A peripheral IV was started in the Left antecubital site with a Angio cath: 22 gauge. IV SITE APPEARANCE: Clean,Dry and Intact SIGNATURE: Melba Wood RN PATIENT NAME: Puja Wyman DATE: January 08, 2025 TIME: 11:48 AM [facility] 01-08-2025 Note HNO ID: [id number] Author: KAREN WILLIAM RT(R) Service: Radiology Author Type: Technologist Type: Progress Notes Filed: 01/08/2025 12:52 Note Text: Radiology Service Progress Note PATIENT NAME: Puja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 Chemotherapy Treatment goal 1. 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 She is scheduled to start systemic chemotherapy with gemcitabine and Abraxane with neoadjuvant intent. Recent blood tests showed WBC 10.47 x 10^9/L, hematocrit 35.5%, and platelets 480 x 10^9/L. CMP revealed sodium 134 mmol/L, creatinine 0.75 mg/dL, BUN 36 mg/dL, total bilirubin <0.2 mg/dL, ALP 126 U/L, ALT 8 U/L, and AST 10 U/L. She was noted to be hypotensive with orthostatic hypotension and an elevated RBY-wt-cvalosrlnj ratio of >20, suggesting hypovolemia. Patient reports experiencing dizziness upon standing, which began today. She denies having a port and expresses interest in having one placed. She notes significant improvement in pain management with morphine, leading to better sleep and increased energy. She also reports improvement in bowel movements, having gone twice since her recent hospital discharge approximately two weeks ago, though she mentions one episode of incontinence. She is actively working on maintaining hydration, carrying a water bottle and using flavor enhancers to increase fluid intake. Review of Systems Gastrointestinal: (+) constipation, (+) diarrhea Musculoskeletal: (+) pain Neurological: (+) dizziness Psychiatric: (+) anxiety Past Medical History No past medical history on file. Social History SOCIAL HISTORY[1] Family History No family history on file. Physical Examination BP (!) 70/30 Pulse 70 Temp 36.3 C (97.4 F) (Temporal) Resp 20 Wt 52.3 kg (115 lb 4.8 oz) LMP (LMP Unknown) SpO2 100% BMI 21.38 kg/m General: Alert and oriented, no acute distress HEENT - Eyes: - Pupils: Pupils equal, round - Oropharynx: Oral mucosa moist Neck: No cervical mass Cardiovascular: No clubbing, cyanosis, or edema - Rate/Rhythm: Regular rate and rhythm - Heart Sounds: No murmurs, rubs, or gallops Pulmonary - Lung Sounds: Clear to auscultation, bilaterally - Respiratory Effort: Normal respiratory effort Abdomen: Soft, non-tender, non-distended, no masses palpable, no hepatosplenomegaly, normal bowel sounds Neurologic - Gait/Stance: Gait normal Skin: No pallor or jaundice Diagnostic Tests Reviewed: Most recent labs and imaging results. 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 1. Cancer of pancreas, tail (HCC) (C25.2) 2. 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 Secondary malignant neoplasm of left kidney (HCC) (C79.02) 4. Encounter for antineoplastic chemotherapy (Z51.11) Locally advanced pancreatic adenocarcinoma with left renal vein and adrenal gland involvement. Surgical resection not feasible due to local invasion. Scheduled to start cycle 1 day 1 of gemcitabine and Abraxane with neoadjuvant intent. Pain improved on morphine. Appetite and bowel habits slightly improved. Awaiting comprehensive metabolic panel. Plan for ongoing systemic chemotherapy. - Start gemcitabine and Abraxane IV today (cycle 1 day 1), with neoadjuvant intent. - Add IV fluids to today's treatment for hydration. - Continue morphine for pain control as prescribed. - Continue antiemetics (prochlorperazine every 6 hours PRN, ondansetron every 8 hours PRN) for nausea; reviewed use of both agents as needed. - Educated patient on chemotherapy regimen, side effects (nausea, vomiting, hair loss, neuropathy), and supportive care; Nandini to review further in chemo room. - Encourage oral hydration (goal: 4-6 bottles/day, ~2L), use flavored or diluted beverages as tolerated. - Schedule port placement for IV access. - Plan for CT scan after 2 cycles to assess response; re-evaluate for surgical resection if significant tumor reduction. - Refer to [facility] for ongoing chemotherapy after initial cycles here. - Refer to genetic counseling for BRCA testing. - [id number] ctDNA for actionable mutations. - Follow up prior to cycle 2; pre-infusion labs to be drawn before each cycle. 5. Orthostatic hypotension (I95.1) 6. Hypovolemia (E86.1) New onset orthostatic hypotension and dizziness today, likely secondary to hypovolemia. Labs show elevated BUN/Cr ratio and low sodium. Symptoms started today. - Administer IV fluids today with chemotherapy. - Court Monitor patient to increase oral fluid intake. - Instructed to notify clinic if dizziness persists or worsens; will arrange additional IV fluids as needed. 7. Constipation, unspecified constipation type (K59.00) Chronic opioid-induced constipation, mild improvement in bowel habits since last visit. One episode of loose stool reported, otherwise improved frequency. - Continue Senna at bedtime, Miralax, and prune juice. - Encourage ongoing bowel regimen and monitor for changes. To summarize the plan, - add iv NaCl to her chemo session for hypovolemia. Encourage oral hydration - proceed with chemo as planned The patient was given opportunity to ask questions, and expressed understanding of the plan outlined above. I spent a total of 30 minutes on the date of the service which included preparing to see the patient, [id number] patient care, completing clinical documentation, performing a medically appropriate examination, counseling and educating the patient/family/caregiver, and ordering medications, tests, or procedures. She Marte Ma, MD Recording using [employer] software for draft documentation of the visit was discussed with the patient/authorized medical center representative; all questions welcomed and answered. Patient/authorized medical center representative agreed to proceed [1] Social History Tobacco Use Smoking status: Every Day Types: Cigarettes Smokeless tobacco: Never Substance Use Topics Alcohol use: Not Currently Drug use: Yes Types: Marijuana Comment: medical documented in this encounter [facility] 11-13-2024 Note HNO ID: [id number] Author: SHE DRAPER MD Service: ? Author Type: Physician Type: Progress Notes Filed: 11/13/2024 10:40 Note Text: [facility] ESTABLISHED PATIENT VISIT Department of Hematology and Medical Oncology Chief Complaint(s)/ Reason for Visit Locally advanced pancreas adenocarcinoma with left renal artery, adrenal gland involvement. [facility]: Dr. Pena [facility] Pall[facility] Medicine: Dr. Leodan Seo Current Plan Gemcitabine/Abraxane neoadjuvant 11/13/2024 Treatment History 11/13/24 - gemcitabine/abraxane neoadjuvant intent Molecular Profile - refer genetic counseling for BRCA testing - [id number] ctDNA (FNA pancreas biopsy will not be feasible for somatic testing) Oncology History Cancer of pancreas, tail (HCC) 09/2024 Initial Diagnosis Cancer of pancreas, tail (HCC) 10/03/2024 MRI Abdo 1. Complex solid cystic lesion involving the pancreatic body/tail, measuring at least 5.8 x 4.8 x 5.8 cm, demonstrating thick irregular peripheral enhancement as well as irregular internal septal enhancement. Precise relationship to pancreatic duct is difficult to discern. No pancreatic ductal dilatation. This lesion abuts portions of the lesser curvature of the proximal stomach, as as well as the medial spleen, and left adrenal gland. Lesion may reflect cystic neoplasm or necrotic adenocarcinoma. Recommend correlation with FNA results. 2. Portions of the splenic artery and splenic vein are obscured by complex solid cystic lesion. Visualized portions appear patent. Motion artifact limits evaluation to some extent. 3. No suspicious liver lesions. 4. A few prominent peripancreatic lymph nodes without bulky adenopathy. 5. Pancreatic perilesional stranding/fluid localized to the left upper quadrant with trace perisplenic ascites 10/16/2024 CT CAP 1. 5.5 cm solid pancreatic mass. This demonstrates some necrosis. The mass is seen to impress mildly on the posterior wall of the stomach. 2. No hepatic or pancreatic ductal dilatation. 3. Bilateral renal cysts. These require no further imaging. 1. A few punctate pulmonary nodules right upper lobe measuring up to 3 mm. Fleischner Society Guidelines for low-risk or high-risk patients recommend that one should consider chest CT at 12 months due to the morphology and/or location of this nodule. 2. Mild emphysema most pronounced towards the apices where there is pleural parenchymal scarring. No consolidation or pleural effusions. No pneumothorax. 3. Partial visualization of heterogeneous pancreatic lesion. 10/03/2024 Pathology [facility] - Pancreas, Tail - Fine Needle Aspirate: POSITIVE FOR MALIGNANT CELLS. Adenocarcinoma. 11/08/2024 - Chemotherapy Treatment goal 1. 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 She is scheduled to start systemic chemotherapy with gemcitabine and Abraxane with neoadjuvant intent. Recent blood tests showed WBC 10.47 x 109/L, hematocrit 35.5%, and platelets 480 x 109/L. CMP revealed sodium 134 mmol/L, creatinine 0.75 mg/dL, BUN 36 mg/dL, total bilirubin <0.2 mg/dL, ALP 126 U/L, ALT 8 U/L, and AST 10 U/L. She was noted to be hypotensive with orthostatic hypotension and an elevated ADE-ux-aztpjmexkg ratio of >20, suggesting hypovolemia. Patient reports experiencing dizziness upon standing, which began today. She denies having a port and expresses interest in having one placed. She notes significant improvement in pain management with morphine, leading to better sleep and increased energy. She also reports improvement in bowel movements, having gone twice since her recent hospital discharge approximately two weeks ago, though she mentions one episode of incontinence. She is actively working on maintaining hydration, carrying a water bottle and using flavor enhancers to increase fluid intake. Review of Systems Gastrointestinal: (+) constipation, (+) diarrhea Musculoskeletal: (+) pain Neurological: (+) dizziness Psychiatric: (+) anxiety Past Medical History No past medical history on file. Social History (more content not included)... 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 - morphine SR (MS CONTIN) 15 mg 12 hr tablet Take 1 tablet by mouth two times a day for 14 days. Total dose of 45 mg twice daily. - oxyCODONE IR (ROXICODONE) 5 mg immediate release tablet Take 2 tablets by mouth every 4 hours as needed for pain for up to 30 days. - naloxone 4 mg/actuation nasal spray (NARCAN) Use 1 spray in one nostril as needed for overdose. May repeat every 2 to 3 min in alternating nostrils until medical assistance is available - Senna 8.6 mg tab Take 8.6 mg by mouth two times a day. 2 tabs - gabapentin (NEURONTIN) 300 mg capsule Take 300 mg by mouth three times a day. 2 caps - busPIRone (BUSPAR) 10 mg tablet Take 10 mg by mouth two times a day. - cyclobenzaprine (FLEXERIL) 5 mg tablet Take 5 mg by mouth two times a day as needed for muscle spasm. - lisinopril (ZESTRIL) 10 mg tablet Take 10 mg by mouth once daily. - ondansetron (ZOFRAN) 4 mg tablet Take 4 mg by mouth every 8 hours as needed. - insulin glargine,hum.rec.anlog (LANTUS SUBCUTANEOUS) Inject 22 Units subcutaneously daily at bedtime. - insulin lispro (HUMALOG PEN SUBCUTANEOUS) Inject 14 Units subcutaneously three times a day with meals. - prochlorperazine (COMPAZINE) 10 mg tablet Take 1 tablet by mouth every 6 hours as needed. - ondansetron (ZOFRAN) 8 mg tablet Take 1 tablet by mouth every 8 hours as needed for nausea/vomiting. - metoprolol tartrate, short acting, (LOPRESSOR) 50 mg tablet Take 50 mg by mouth twice daily. - omeprazole (PRILOSEC) 20 mg capsule take 1 capsule by mouth twice a day , 30 MINUTES BEFORE MORNING MEAL, NEEDED - potassium chloride 20 mEq TbER Take 1 tablet by mouth twice daily. - rOPINIRole (REQUIP) 1 mg tablet Take 1 mg by mouth. Encounter Status:Closed by NANDINI DE LA PAZ on 11/13/24 [facility] 11-12-2024 Telephone encounter Note preCare Coordinator Pre Chemo Patient identified by name and date of . NO LVM Confirmed date and time for chemotherapy ? YES Other appointments (labs, imaging) discussed? YES Discussed where to park ([employer]), charge for parking YES Discussed where to report (building/floor) YES Any pre-medications ordered? NO Described the infusion room and what to expect. (What to wear, what to bring [iPad, books] amount of time treatment can take, meals and CC options for food) YES Note: dress comfortably, bring food and drink Discussed whether the patient can eat prior to labs and treatment. YES Who is driving you to and from treatment? LVM Discussed why it is important to bring someone with you. Yes, first time tx Resources discussed (music therapy, Art therapy, pet therapy, etc.) YES Education on chemotherapy (drug, side effects) discussed and that the patient will be receiving a C1D1 call within 7 days of treatment. YES Other topics discussed, interventions needed: office number provided for any questions prior to appts, relayed RNCC will meet with pt in tx room for formal chemo edu Nandini De La Paz RN [facility] Work Phone: 11-12-2024 Miscellaneous Notes preCare Coordinator Pre Chemo Patient identified by name and date of . NO LVM Confirmed date and time for chemotherapy ? YES Other appointments (labs, imaging) discussed? YES Discussed where to park ([employer]), charge for parking YES Discussed where to report (building/floor) YES Any pre-medications ordered? NO Described the infusion room and what to expect. (What to wear, what to bring [iPad, books] amount of time treatment can take, meals and CC options for food) YES Note: dress comfortably, bring food and drink Discussed whether the patient can eat prior to labs and treatment. YES Who is driving you to and from treatment? LVM Discussed why it is important to bring someone with you. Yes, first time tx Resources discussed (music therapy, Art therapy, pet therapy, etc.) YES Education on chemotherapy (drug, side effects) discussed and that the patient will be receiving a C1D1 call within 7 days of treatment. YES Other topics discussed, interventions needed: office number provided for any questions prior to appts, relayed RNCC will meet with pt in tx room for formal chemo edu Nandini De La Paz RN documented in this encounter [facility] 11-08-2024 Note HNO ID: [id number] Author: RALPH EDWARD LISW Service: ? Author Type: Poultice Machine Operator Type: Progress Notes Filed: 11/08/2024 14:40 Note Text: Referral sent via email to [facility] for in-home waiver program. THAD Aguayo [facility] 11-07-2024 Telephone encounter Note Palliative Medicine Care Coordination NEW PATIENT Telephone call Patient identified by name and date of . YES Spoke with: patient Nurse introduced self and role of Securities Consultant in Palliative Medicine. Office contact sheet provided with office and on-call phone numbers. Reviewed on-call process. Nurse educated patient on medication refill process. Nurse encouraged patient to call with any questions/concerns/symptom related issues. All questions/concerns addressed: Yes Anastasia King RN [facility] 11-07-2024 Miscellaneous Notes Palliative Medicine Care Coordination NEW PATIENT Telephone call Patient identified by name and date of . YES Spoke with: patient Nurse introduced self and role of Securities Consultant in Palliative Medicine. Office contact sheet provided with office and on-call phone numbers. Reviewed on-call process. Nurse educated patient on medication refill process. Nurse encouraged patient to call with any questions/concerns/symptom related issues. All questions/concerns addressed: Yes Anastasia King RN documented in this encounter [facility] 11-06-2024 Telephone encounter Note Received call from pharmacy requesting prior authorization/quantity override for the following medication: Morphine ER 30mg (30/15.) Info sent to [facility] via [employer] (Denson: [id number]) Authorization effective today and good until 02/03/2025 Reference # PA Pharmacy notified. [facility] 11-06-2024 Miscellaneous Notes Received call from pharmacy requesting prior authorization/quantity override for the following medication: Morphine ER 30mg (30/15.) Info sent to [facility] via [employer] (Denson: [id number]) Authorization effective today and good until 02/03/2025 Reference # PA Pharmacy notified. documented in this encounter [facility] 11-06-2024 Telephone encounter Note Office will rotate patient's oxycodone ER to morphine ER for insurance purposes. Called and updated the patient about the switch. The following prescription(s) will be transmitted electronically to [facility] upon approval. Patient has been notified. Requested Prescriptions Pending Prescriptions Disp Refills morphine SR (MS CONTIN) 30 mg 12 hr tablet 30 tablet 0 Sig: Take 1 tablet by mouth two times a day for 15 days. [facility] 11-06-2024 Miscellaneous Notes Office will rotate patient's oxycodone ER to morphine ER for insurance purposes. Called and updated the patient about the switch. The following prescription(s) will be transmitted electronically to [facility] upon approval. Patient has been notified. Requested Prescriptions Pending Prescriptions Disp Refills morphine SR (MS CONTIN) 30 mg 12 hr tablet 30 tablet 0 Sig: Take 1 tablet by mouth two times a day for 15 days. documented in this encounter [facility] 11-06-2024 Telephone encounter Note Received call from pharmacy requesting prior authorization/quantity override for the following medication: oxycontin 20mg (60/30.) Information sent to [facility] via [employer] (Denson: [id number]) Authorization Declined in favor of formulary alternative. Office will change the script to Morphine ER Reference # PA Patient called and notified. [facility] 11-06-2024 Miscellaneous Notes Received call from pharmacy requesting prior authorization/quantity override for the following medication: oxycontin 20mg (60/30.) Information sent to [facility] via [employer] (Denson: [id number]) Authorization Declined in favor of formulary alternative. Office will change the script to Morphine ER Reference # PA Patient called and notified. documented in this encounter [facility] 11-05-2024 Note Addended by: LEODAN SEO on: 11/05/2024 12:26 PM Modules accepted: Orders [facility] 11-05-2024 Miscellaneous Notes Addended by: LEODAN SEO on: 11/05/2024 12:26 PM Modules accepted: Orders documented in this encounter [facility] 11-05-2024 Instructions Leodan Seo MD - 11/05/2024 12:07 PM EDT Pain Start Oxycontin (time release Oxycodone) 20 mg tabs. Take 1 tab twice daily, about 12 hours apart (example: 9 AM and 9 PM) Continue Oxycodone 5 mg tabs, take 2-3 tabs (10-15 mg) up to every 4 hours as needed It is ok to use Tylenol as needed also. Use a maximum of 1000 mg per dose and a maximum of 3000 mg per day Constipation Continue Senna tabs twice daily. You can use up to 4 tabs twice daily. Continue Miralax 1-2 capfuls per day. documented in this encounter [facility] 11-05-2024 Note HNO ID: [id number] Author: CELINA WARNER LPN Service: ? Author Type: Licensed Nurse Type: Progress Notes Filed: 11/05/2024 12:25 Note Text: Additional intake questions: Has the patient had fever, nausea, vomiting, diarrhea, constipation, fatigue for > 1 week? Yes, constipation (day of last BM 11/03/2024) Does the patient have a decreased appetite? Yes Does patient want to see a Field Representatives Director? Yes, MD Notified (yes to any of above refer patient to schedulers for dietitian appointment) ) Does patient have any new or increased numbness or tingling of extremities? Yes, left arm Is patient interested in fertility information? NA Does patient need any prescription refills? No Does patient have an advanced directive in place? N/A Pt c/o of chest pain 10/06 radiating down left arm. She c/o of pain radiating from mid back to chest. MD notified. Electronically Signed By: Celina Warner LPN [facility] 11-05-2024 History of Present illness Narrative Additional intake questions: Has the patient had fever, nausea, vomiting, diarrhea, constipation, fatigue for > 1 week? Yes, constipation (day of last BM 11/03/2024) Does the patient have a decreased appetite? Yes Does patient want to see a Field Representatives Director? Yes, MD Notified (yes to any of above refer patient to schedulers for dietitian appointment) ) Does patient have any new or increased numbness or tingling of extremities? Yes, left arm Is patient interested in fertility information? NA Does patient need any prescription refills? No Does patient have an advanced directive in place? N/A Pt c/o of chest pain 10/06 radiating down left arm. She c/o of pain radiating from mid back to chest. MD notified. PALLIATIVE MEDICINE INITIAL CONSULT SERVICE DATE: 11/05/2024 Referring Physician: She Marte Ma Primary Physician: No primary care provider on file. REASON FOR CONSULT: Pain management Subjective 54-year-old female with pancreatic tail adenocarcinoma. Diagnosed 10/03/2024. Starting neoadjuvant chemotherapy 11/13/2024. PMH/PSH: Chronic back pain with right-sided sciatica s/p surgery x 2, peripheral neuropathy of right leg and left arm, insulin-dependent DM, bipolar disorder, HTN, emphysema, RLS. SH/FH: Lives in [place] with boyfriend. Has 3 daughters in [place]. Followed by palliative medicine since outpatient consultation 11/05/2024 for symptom management/palliative care. She experiences left upper abdomen/lower chest pain over the past 1-2 months which has been increasing in frequency and intensity. It had initially been managed with oxycodone 5-10 mg every 4 hours on an as-needed basis. During her hospitalizations 09/2024, she was seen by [facility] for opioid management. Has not established with them outpatient though. Per PDMP, she most recently filled oxycodone 5 mg tablets #180 on 11/01/2024 with instructions to take 10 mg every 4 hours as needed. She has been taking 10 mg 4-6 times a day on a consistent basis. Experiencing partial relief for pain, without significant side effects. She has been managing constipation with senna 1 tablet twice daily, MiraLAX 1 capful per day, and Dulcolax suppository on an as-needed basis (uses this about every 3 days). She has been managing at home independently, though has needed a 4 point cane for steadiness. Appetite has been low. She has been trying to supplement with nutritional shakes. She will begin cancer directed therapy 11/13/2024 here at [facility]. She is considering a transition to oncologic care locally. PAST MEDICAL HISTORY: Chronic low back pain with right-sided sciatica, IDDM, bipolar disorder, HTN, emphysema PAST SURGICAL HISTORY: Back surgery x 2 CURRENT MEDICATIONS: oxyCODONE IR (ROXICODONE) 5 mg immediate release tablet Take 2 tablets by mouth every 4 hours as needed for pain for up to 30 days. naloxone 4 mg/actuation nasal spray (NARCAN) Use 1 spray in one nostril as needed for overdose. May repeat every 2 to 3 min in alternating nostrils until medical assistance is available Senna 8.6 mg tab Take 8.6 mg by mouth two times a day. 2 tabs gabapentin (NEURONTIN) 300 mg capsule Take 300 mg by mouth three times a day. 2 caps busPIRone (BUSPAR) 10 mg tablet Take 10 mg by mouth two times a day. cyclobenzaprine (FLEXERIL) 5 mg tablet Take 5 mg by mouth two times a day as needed for muscle spasm. lisinopril (ZESTRIL) 10 mg tablet Take 10 mg by mouth once daily. ondansetron (ZOFRAN) 4 mg tablet Take 4 mg by mouth every 8 hours as needed. insulin glargine,hum.rec.anlog (LANTUS SUBCUTANEOUS) Inject 22 Units subcutaneously daily at bedtime. insulin lispro (HUMALOG PEN SUBCUTANEOUS) Inject 14 Units subcutaneously three times a day with meals. prochlorperazine (COMPAZINE) 10 mg tablet Take 1 tablet by mouth every 6 hours as needed. ondansetron (ZOFRAN) 8 mg tablet Take 1 tablet by mouth every 8 hours as needed for nausea/vomiting. aspirin, enteric coated (ASPIRIN, ENTERIC COATED) 81 mg EC tablet Take 81 mg by mouth. (Patient not taking: Reported on 11/01/2024) celecoxib (CELEBREX) 100 mg capsule Take 100 mg by mouth twice daily. (Patient not taking: Reported on 11/01/2024) cholecalciferol (VITAMIN D3) 1,000 unit tab tablet Take 1,000 Units by mouth. (Patient not taking: Reported on 11/01/2024) dicyclomine (BENTYL) 10 mg capsule Take 10 mg by mouth. (Patient not taking: Reported on 11/01/2024) glimepiride (AMARYL) 4 mg tablet Take 4 mg by mouth. (Patient not taking: Reported on 11/01/2024) metoprolol tartrate, short acting, (LOPRESSOR) 50 mg tablet Take 50 mg by mouth twice daily. (Patient taking differently: Take 25 mg by mouth two times a day.) omeprazole (PRILOSEC) 20 mg capsule take 1 capsule by mouth twice a day , 30 MINUTES BEFORE MORNING MEAL, NEEDED (Patient not taking: Reported on 11/01/2024) potassium chloride 20 mEq TbER Take 1 tablet by mouth twice daily. (Patient not taking: Reported on 11/01/2024) rOPINIRole (REQUIP) 1 mg tablet Take 1 mg by mouth. (Patient taking differently: Take 1 mg by mouth two times a day. 1 tab in am and 2 tabs at bedtime) OZEMPIC 1 mg/dose (4 mg/3 mL) pen DIAL AND INJECT 1MG subcutaneously every week (Patient not taking: Reported on 11/01/2024) vitamin E, dl,tocopheryl acet, (VITAMIN E, DL, ACETATE,) 180 mg (400 unit) capsule Take 180 mg by mouth once daily. (Patient not taking: Reported on 11/01/2024) ALLERGIES: ALLERGIES Allergen Reactions Soap Hives Bubble bath FAMILY HISTORY: No family history on file. SOCIAL HISTORY: Drug Use: Yes (medical) Alcohol Use: Not Currently Tobacco Use: Types: Cigarettes REVIEW OF SYSTEMS: Modified ESAS ([place] Symptom Assessment Scale): Information Provided By: Patient Pain: Severe Nausea: None Loss of Appetite: Moderate Constipation: Mild Shortness of Breath: None Drowsiness: None Tiredness: Not asked Depression: Moderate Anxiety: Moderate How you feel overall: Poor Objective ECOG PERFORMANCE STATUS: 1- Restricted in physically strenuous activity. Carries out light duty. PHYSICAL EXAMINATION: Vital signs: BP 118/73 Pulse 115 Temp 36.2 C (97.1 F) (Temporal) Resp 18 LMP (LMP Unknown) SpO2 100% PHYSICAL EXAMINATION: Vital signs: BP 118/73 Pulse 115 Temp 36.2 C (97.1 F) (Temporal) Resp 18 LMP (LMP Unknown) SpO2 100% General Appearance: No apparent distress Skin: No rash Eyes: Normal HENT: Atraumatic Neck: Grossly normal Lungs: Unlabored CV: Not examined Abdomen: Nondistended : Not examined Musculoskeletal: No gross deformity Lymphatics: Not examined Neuro: Delirium absent Psych: Affect congruent with mood DATA: Diagnostic tests reviewed for today's visit: Most recent labs and imaging results. CrCl cannot be calculated (Patient's most recent lab result is older than the maximum 180 days allowed.). Opioid Management: Yes Indication for Opioid Prescribing: Cancer related pain Review of previous pain treatment and response to treatment completed?: Yes How much does pain impede patient s ability to engage in work or other purposeful activities, interfere with your activities of daily living, physical activity, or quality of your family life and social activities? Significantly Objective goals of treatment:Improved comfort and function based on an ongoing functional assessment Rationale for medication choice and dosage: Based on a review of patient's previous therapies, diagnosis, goals of therapy and an assessment of the risks and benefits of using opioid therapy Expected duration of treatment: At least three months, based on an ongoing assessment at least every three months ORT-OUD Score: Will review at a future visit History of substance misuse or substance use disorder?: No No results found for: UAMPH, UBARB, UBARB2, UBENZ, UQBUPRE, UQNORBUP, UCOC2, UQCANN, UOPI, UOXYC, UPCP, UTHC, THC, UETOH Urine Panel: No results found for: UQCANN, UQBNZL, TQA1BIH, UQAMPH, UQMAMP, UQBUPRE, UQNORBUP, UQMTHD, UQEDDP, UQTRAM, UQDTRM, UQFNTL, UQNFTL, UQCODE, UQMORP, UQDCDN, UQHCOD, UQOXYC, UQHMOR, UQOXYM, UQCREA, UQPH, UQSPGR, UQOXID, UQSPQ OARRS checked?: Yes, no abberancy Naloxone offered?: No, will discuss at follow up visit Prescribed Morphine Equivalent Daily Dose (MEDD): Yes > 50 MEDD Yes, I am certified in Hospice and Palliative Care, Hematology, Medical Oncology or Pain Medicine Chronic Opioid Management Agreement and Informed Consent: Will complete at next visit Assessment & Plan 54-year-old female with pancreatic adenocarcinoma followed by palliative medicine for symptom management/palliative care Cancer related pain - Left upper abdomen/lower chest pain radiating to back. Began September 2024 Continue Tylenol as needed Continue oxycodone--increase to 15 mg every 4 hours as needed Start OxyContin 20 mg twice daily Opioid-induced constipation, poor appetite Continue laxatives--titrate as needed Encouraged nutritional shakes as needed Nutrition consult Chronic nonmalignant low back pain and right-sided sciatica On gabapentin 600 mg 3 times daily chronically per PCP Adjustment disorder, history of bipolar On Latuda and buspirone per outside providers Advance care planning R/T pancreatic adenocarcinoma Existence of Advance Directives: Unknown Per [facility] note 10/23/2024: Patient would like to complete HCPOA with her brother Garrison Escobedo as her surrogate decision maker and daughter Christine Fernandez as backup agent Starting neoadjuvant chemotherapy 11/13/2024 per Oncology Follow-up Next Visit: 2 Weeks in person Can arrange referral to [facility] if she decides to follow-up locally for oncologic care Recommendations will be communicated back to the consulting service by way of shared electronic medical record. Leodan Seo MD November 05, 2024 10:50 AM I spent a total of 60 minutes on the date of the service which included preparing to see the patient, [id number] patient care, completing clinical documentation, obtaining and/or reviewing separately obtained history, performing a medically appropriate examination, counseling and educating the patient/family/caregiver, and ordering medications, tests, or procedures. documented in this encounter [facility] 11-05-2024 Note HNO ID: [id number] Author: LEODNA SEO MD Service: ? Author Type: Physician Type: Progress Notes Filed: 11/05/2024 12:25 Note Text: PALLIATIVE MEDICINE INITIAL CONSULT SERVICE DATE: 11/05/2024 Referring Physician: She Marte Ma Primary Physician: No primary care provider on file. REASON FOR CONSULT: Pain management Subjective 54-year-old female with pancreatic tail adenocarcinoma. Diagnosed 10/03/2024. Starting neoadjuvant chemotherapy 11/13/2024. PMH/PSH: Chronic back pain with right-sided sciatica s/p surgery x 2, peripheral neuropathy of right leg and left arm, insulin-dependent DM, bipolar disorder, HTN, emphysema, RLS. SH/FH: Lives in [place] with boyfriend. Has 3 daughters in [place]. Followed by palliative medicine since outpatient consultation 11/05/2024 for symptom management/palliative care. She experiences left upper abdomen/lower chest pain over the past 1-2 months which has been increasing in frequency and intensity. It had initially been managed with oxycodone 5-10 mg every 4 hours on an as-needed basis. During her hospitalizations 09/2024, she was seen by [facility] for opioid management. Has not established with them outpatient though. Per PDMP, she most recently filled oxycodone 5 mg tablets #180 on 11/01/2024 with instructions to take 10 mg every 4 hours as needed. She has been taking 10 mg 4-6 times a day on a consistent basis. Experiencing partial relief for pain, without significant side effects. She has been managing constipation with senna 1 tablet twice daily, MiraLAX 1 capful per day,and Dulcolax suppository on an as-needed basis (uses this about every 3 days). She has been managing at home independently, though has needed a 4 point cane for steadiness. Appetite has been low. She has been trying to supplement with nutritional shakes. She will begin cancer directed therapy 11/13/2024 here at [facility]. She is considering a transition to oncologic care locally. PAST MEDICAL HISTORY: Chronic low back pain with right-sided sciatica, IDDM, bipolar disorder, HTN, emphysema PAST SURGICAL HISTORY: Back surgery x 2 CURRENT MEDICATIONS: oxyCODONE IR (ROXICODONE) 5 mg immediate release tablet Take 2 tablets by mouth every 4 hours as needed for pain for up to 30 days. naloxone 4 mg/actuation nasal spray (NARCAN) Use 1 spray in one nostril as needed for overdose. May repeat every 2 to 3 min in alternating nostrils until medical assistance is available Senna 8.6 mg tab Take 8.6 mg by mouth two times a day. 2 tabs gabapentin (NEURONTIN) 300 mg capsule Take 300 mg by mouth three times a day. 2 caps busPIRone (BUSPAR) 10 mg tablet Take 10 mg by mouth two times a day. cyclobenzaprine (FLEXERIL) 5 mg tablet Take 5 mg by mouth two times a day as needed for muscle spasm. lisinopril (ZESTRIL) 10 mg tablet Take 10 mg by mouth once daily. ondansetron (ZOFRAN) 4 mg tablet Take 4 mg by mouth every 8 hours as needed. insulin glargine,hum.rec.anlog (LANTUS SUBCUTANEOUS) Inject 22 Units subcutaneously daily at bedtime. insulin lispro (HUMALOG PEN SUBCUTANEOUS) Inject 14 Units subcutaneously three times a day with meals. prochlorperazine (COMPAZINE) 10 mg tablet Take 1 tablet by mouth every 6 hours as needed. ondansetron (ZOFRAN) 8 mg tablet Take 1 tablet by mouth every 8 hours as needed for nausea/vomiting. aspirin, enteric coated (ASPIRIN, ENTERIC COATED) 81 mg EC tablet Take 81 mg by mouth. (Patient not taking: Reported on 11/01/2024) celecoxib (CELEBREX) 100 mg capsule Take 100 mg by mouth twice daily. (Patient not taking: Reported on 11/01/2024) cholecalciferol (VITAMIN D3) 1,000 unit tab tablet Take 1,000 Units by mouth. (Patient not taking: Reported on 11/01/2024) dicyclomine (BENTYL) 10 mg capsule Take 10 mg by mouth. (Patient not taking: Reported on 11/01/2024) glimepiride (AMARYL) 4 mg tablet Take 4 mg by mouth. (Patient not taking: Reported on 11/01/2024) metoprolol tartrate, short acting, (LOPRESSOR) 50 mg tablet Take 50 mg by mouth twice daily. (Patient taking differently: Take 25 mg by mouth two times a day.) omeprazole (PRILOSEC) 20 mg capsule take 1 capsule by mouth twice a day , 30 MINUTES BEFORE MORNING MEAL, NEEDED (Patient not taking: Reported on 11/01/2024) potassium chloride 20 mEq TbER Take 1 tablet by mouth twice daily. (Patient not taking: Reported on 11/01/2024) rOPINIRole (REQUIP) 1 mg tablet Take 1 mg by mouth. (Patient taking differently: Take 1 mg by mouth two times a day. 1 tab in am and 2 tabs at bedtime) OZEMPIC 1 mg/dose (4 mg/3 mL) pen DIAL AND INJECT 1MG subcutaneously every week (Patient not taking: Reported on 11/01/2024) vitamin E, dl,tocopheryl acet, (VITAMIN E, DL, ACETATE,) 180 mg (400 unit) capsule Take 180 mg by mouth once daily. (Patient not taking: Reported on 11/01/2024) ALLERGIES: ALLERGIES Allergen Reactions Soap Hives Bubble bath FAMILY HISTORY: No family history on file. SOCIAL HISTORY: (more content not included)... [facility] 11-01-2024 Note Addended by: SHE DRAPER on: 11/01/2024 04:22 PM Modules accepted: Orders [facility] 11-01-2024 Miscellaneous Notes Addended by: SHE DRAPER on: 11/01/2024 04:22 PM Modules accepted: Orders documented in this encounter [facility] 11-01-2024 Instructions She Draper MD - 11/01/2024 3:51 PM EDT We discussed your pancreatic cancer: - You have a 5.5 cm mass in the tail of your pancreas that is pressing on nearby structures, including the stomach and adrenal gland. Surgery is not currently an option due to the size and location of the tumor. - We will begin chemotherapy to shrink the tumor and reduce its involvement with surrounding structures. The goal is to make surgery a possibility in the future. - Your chemotherapy regimen will include two drugs: gemcitabine and abraxane. - This will be administered once a week for three weeks, followed by one week off. Each four-week period is considered one cycle. - After two cycles (approximately two months), we will perform a CT scan to evaluate the tumor's response to treatment. - Side effects of chemotherapy may include nausea, vomiting, hair loss, and neuropathy. We will monitor you closely and adjust the treatment as needed. - Blood tests will be done before each chemotherapy session to ensure your white blood cell count, hemoglobin, platelets, and kidney function are adequate. - Your first chemotherapy session is scheduled for next Monday. Blood tests can be done the same day or the day before at [facility] if preferred. - We will arrange for you to transition your chemotherapy care to [facility], which is closer to your home. You will need to meet with an oncologist there before transferring care. We discussed your pain management: - You are currently taking oxycodone 10 mg every 7 hours but are experiencing inadequate pain relief. I have prescribed oxycodone 10 mg, to be taken every 4 hours as needed for pain. A 30-day supply has been sent to your pharmacy ([facility]). - I have also prescribed naloxone (a nasal spray) as a precaution in case of accidental overdose. Please keep this at home. - To prevent constipation from the pain medication, continue taking Miralax and prune juice. I have also prescribed Senna, which you should take two tablets at night. We discussed nausea management: - I have prescribed two anti-nausea medications: Compazine (to be taken every 6 hours as needed) and Zofran (to be taken every 8 hours as needed). Start with Compazine, and if it is not effective, add Zofran. We discussed your diabetes and neuropathy: - You are on insulin for diabetes, which may be contributing to your neuropathy. Chemotherapy can also cause neuropathy, so we will monitor this closely during your treatment. - Your neuropathy in the right leg is likely due to prior nerve damage from a misplaced surgical device. We will continue to assess your symptoms. We discussed your overall health and support: - You have significant back pain and physical limitations due to a slipped disc and herniated discs. You also experience fatigue and weakness, which make daily activities like cooking and cleaning difficult. - You have an upcoming appointment with Dr. Franny Seo in November for palliative care. This team will help manage your pain and provide additional support. - Carter, the social human services assistants, will contact you next week to assist with any financial or logistical concerns. Next steps: - Begin chemotherapy next Monday. Blood tests will be done the same day or the day before. - Meet with Nandini, my nurse, for additional information about your chemotherapy regimen. - Schedule an appointment with an oncologist at [facility] to transition your chemotherapy care closer to home. - Follow up with me after two chemotherapy cycles (approximately two months) to review your progress and discuss next steps. Please contact our office if you have any questions or concerns. Please schedule as a first time treatment visit type. documented in this encounter [facility] 11-01-2024 Note HNO ID: [id number] Author: DARYA VALDIVIA LPN Service: ? Author Type: Licensed Nurse Type: Progress Notes Filed: 11/01/2024 15:12 Note Text: Additional intake questions: Has the patient had fever, nausea, vomiting, diarrhea, constipation, fatigue for > 1 week? Yes, nausea and constipation (day of last BM approx 2 weeks ago) Does the patient have a decreased appetite? Yes Does patient want to see a Field Representatives Director? No (yes to any of above refer patient to schedulers for dietitian appointment) ) Does patient have any new or increased numbness or tingling of extremities? Yes, neuropathy from DM Is patient interested in fertility information? NA Does patient need any prescription refills? No Does patient have an advanced directive in place? Yes, copies are at home Electronically Signed By: Darya Valdivia LPN [facility] 11-01-2024 History of Present illness Narrative Additional intake questions: Has the patient had fever, nausea, vomiting, diarrhea, constipation, fatigue for > 1 week? Yes, nausea and constipation (day of last BM approx 2 weeks ago) Does the patient have a decreased appetite? Yes Does patient want to see a Field Representatives Director? No (yes to any of above refer patient to schedulers for dietitian appointment) ) Does patient have any new or increased numbness or tingling of extremities? Yes, neuropathy from DM Is patient interested in fertility information? NA Does patient need any prescription refills? No Does patient have an advanced directive in place? Yes, copies are at home Electronically Signed By: Darya Valdivia LPN Images from the original note were not included. [facility] NEW PATIENT VISIT Department of Hematology and Medical Oncology Chief Complaint(s)/ Reason for Visit Locally advanced pancreas adenocarcinoma with left renal artery, adrenal gland involvement. [facility] Surgery: Dr. Pena History of Presenting Illness Puja Wyman is a 54 year old female with recently diagnosed locally advanced pancreas tail cancer. The pertinent detail of the oncologic history is as follows: Oncology History Cancer of pancreas, tail (HCC) 09/2024 Initial Diagnosis Cancer of pancreas, tail (HCC) 10/03/2024 MRI Abdo 1. Complex solid cystic lesion involving the pancreatic body/tail, measuring at least 5.8 x 4.8 x 5.8 cm, demonstrating thick irregular peripheral enhancement as well as irregular internal septal enhancement. Precise relationship to pancreatic duct is difficult to discern. No pancreatic ductal dilatation. This lesion abuts portions of the lesser curvature of the proximal stomach, as as well as the medial spleen, and left adrenal gland. Lesion may reflect cystic neoplasm or necrotic adenocarcinoma. Recommend correlation with FNA results. 2. Portions of the splenic artery and splenic vein are obscured by complex solid cystic lesion. Visualized portions appear patent. Motion artifact limits evaluation to some extent. 3. No suspicious liver lesions. 4. A few prominent peripancreatic lymph nodes without bulky adenopathy. 5. Pancreatic perilesional stranding/fluid localized to the left upper quadrant with trace perisplenic ascites 10/16/2024 CT CAP 1. 5.5 cm solid pancreatic mass. This demonstrates some necrosis. The mass is seen to impress mildly on the posterior wall of the stomach. 2. No hepatic or pancreatic ductal dilatation. 3. Bilateral renal cysts. These require no further imaging. 1. A few punctate pulmonary nodules right upper lobe measuring up to 3 mm. Fleischner Society Guidelines for low-risk or high-risk patients recommend that one should consider chest CT at 12 months due to the morphology and/or location of this nodule. 2. Mild emphysema most pronounced towards the apices where there is pleural parenchymal scarring. No consolidation or pleural effusions. No pneumothorax. 3. Partial visualization of heterogeneous pancreatic lesion. 10/03/2024 Pathology [facility] - Pancreas, Tail - Fine Needle Aspirate: POSITIVE FOR MALIGNANT CELLS. Adenocarcinoma. 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 Pena for evaluation. She has a history of diabetes mellitus on insulin, peripheral neuropathy, and emphysema secondary to a history of smoking. On 10/02/2024, patient presented to an outside hospital ER with epigastric pain radiating to her back and left shoulder blade, persisting for six months. This was associated with a 30-pound weight loss over six months, nausea, and vomiting. An MRI of the abdomen on 10/03/2024 revealed a 5.8 x 4.8 x 5.8 cm mass in the pancreatic body/tail, abutting the lesser curvature of the proximal stomach, spleen, and left adrenal gland. An FNA biopsy of the pancreatic tail mass on the same day confirmed adenocarcinoma. A CT scan on 10/16/2024 confirmed a 5.5 cm solid pancreatic mass with necrosis, mildly impressing on the posterior wall of the stomach. It also showed a few punctate pulmonary nodules in the right upper lobe, with a follow-up CT scan recommended in 12 months, and evidence of mild emphysema. On 10/29/2024, patient was evaluated by Dr. Pena, who recommended systemic chemotherapy with re-evaluation for surgical intervention later. In recent history, patient reports severe pain rated at 6/10, managed with oxycodone 10 mg every 7 hours, though prescribed every 4 hours. She experiences significant functional limitations due to back pain and weakness, unable to lift more than 5 pounds or perform household tasks like cooking, doing dishes, or laundry. She also reports neuropathy in her right leg and left arm, with the leg neuropathy attributed to a misplaced cage device affecting the sciatic nerve. Patient has been on insulin for six months, with a history of diabetes for 4-5 years. She reports severe fatigue, often needing to pull up hand while driving to rest, and difficulty sleeping due to pain. She has an upcoming appointment with a palliative medicine doctor in November. Review of Systems Constitutional: (+) unintended 30 lb weight loss, (+) fatigue, (+) generalized weakness Gastrointestinal: (+) epigastric pain radiating to back and left shoulder blade, (+) nausea, (+) vomiting, (+) constipation Musculoskeletal: (+) low back pain Neurological: (+) right leg numbness, (+) left arm numbness Past Medical History Diabetes mellitus x 4 to 5 yr, and on insulin for 6 months Hypertension Bipolar disorder Peripheral neuropathy Right peripheral neuropathy from previous back surgery S/p tubal ligation S/p hysterectomy Social History SOCIAL HISTORY[1] Family History No family history of colon, pancreas and breast cancer Physical Examination BP 116/85 Pulse 75 Temp 36.2 C (97.1 F) (Temporal) Resp 18 Ht 156.4 cm (5' 1.58) Wt 51.4 kg (113 lb 5.1 oz) LMP (LMP Unknown) SpO2 100% BMI 21.01 kg/m General: Alert and oriented, no acute distress HEENT - Eyes: - Pupils: Pupils equal, round - Oropharynx: Oral mucosa moist Neck: No cervical mass Cardiovascular: No clubbing, cyanosis, or edema - Rate/Rhythm: Regular rate and rhythm Pulmonary - Respiratory Effort: Normal respiratory effort Abdomen: Soft, non-tender Neurologic - Gait/Stance: walking with walker Skin: No pallor or jaundice Musculoskeletal/Extremities: Right lower extremity paresthesia Diagnostic Tests Reviewed: Most recent labs and imaging results. Specifically, Labs: Tests: (10/03/2024) FNA Biopsy: Positive for carcinoma. Imaging: (10/16/2024) CT Abdomen: 5.5 cm solid pancreas mass with necrosis, mild impression on the posterior wall of the stomach. A few punctate pulmonary nodules in the right upper lobe recommended for follow-up CT in 12 months. Mild emphysema. (10/03/2024) MRI Abdomen: 5.8 times 4.8 times 5.8 cm mass in the pancreas body/tail, abutting the lesser curvature of the proximal stomach, spleen, and left adrenal gland. 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 1. Cancer of pancreas, tail (HCC) (C25.2) 2. 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 MRI on 10/03/2024 showed a 5.8 x 4.8 x 5.8 cm mass in the body/tail of the pancreas, abutting the lesser curvature of the proximal stomach, spleen, and left adrenal gland. FNA biopsy on 10/03/[address] on 10/16/2024 confirmed a 5.5 cm solid pancreatic mass with necrosis, mildly impinging on the posterior wall of the stomach. Surgical resection not feasible at this time due to local invasion; systemic chemotherapy recommended by Dr. Pena on 10/29/2024. - She has significant fatigue and pain, and lost 30 lbs over last 6 months. I'm concerned about her tolerance of FOLFIRINOX. Gemcitabine/Abraxane would be optimal. Plan to start systemic chemotherapy with gemcitabine and Abraxane, administered IV once weekly for 3 weeks followed by 1 week off (1 cycle = 4 weeks). - Educated patient on chemotherapy regimen, including schedule, need for pre-infusion labs, and potential side effects (nausea, vomiting, hair loss, neuropathy). - Provided written educational materials and arranged for nurse Hobbs to review regimen and side effect management. - Plan for CT scan after 2 cycles (2 months) to assess response; if significant tumor reduction, will re-evaluate for surgical resection with Dr. Pena. - Refer to [facility] for ongoing chemotherapy closer to home; will start initial treatment here and transition care after local oncologist evaluation. - Follow-up prior to chemotherapy initiation next week; pre-treatment labs to be drawn - refer genetic counseling and to evaluate for BRCA testing - Her biopsy was FNA of pancreas and concened not adequate for MMR testing - [id number] ct DNA for potentially actionable mutations 4. Type 2 diabetes mellitus with peripheral neuropathy (HCC) (E11.42) 5. Encounter for long-term (current) use of insulin (HCC) (Z79.4) Diabetes mellitus diagnosed 4-5 years ago, previously well-controlled on oral agents; transitioned to insulin therapy 6 months ago due to worsening glycemic control associated with pancreatic malignancy. Peripheral neuropathy present, likely multifactorial (diabetes, prior spinal injury, and potential chemotherapy-related risk). - Monitor for potential worsening of neuropathy during chemotherapy. - Continue current insulin regimen. 6. Pulmonary emphysema, unspecified emphysema type (HCC) (J43.9) 7. Personal history of nicotine dependence (Z87.891) History of emphysema and prior cigarette smoking; CT on 10/16/2024 showed mild emphysema and a few punctate pulmonary nodules in the right upper lobe, with recommendation for follow-up CT in 12 months. - Continue current management. - Follow-up CT scan in 12 months to monitor pulmonary nodules. 8. Epigastric pain (R10.13) 9. Weight loss (R63.4) 10. Encounter for palliative care (Z51.5) Chronic epigastric pain radiating to back and left shoulder blade, associated with 30 lb weight loss over 6 months, nausea, and vomiting; pain currently rated 6/10, with inadequate relief from oxycodone 10 mg every 7 hours. - Start oxycodone 10 mg every 4 hours as needed for pain; 30-day supply sent to pharmacy. - Start naloxone nasal spray for opioid overdose reversal. - Start prochlorperazine every 6 hours PRN and ondansetron every 8 hours PRN for nausea. - Start Senna 2 tablets at bedtime for opioid-induced constipation; continue Miralax and prune juice. - Refer to palliative medicine for pain management and supportive care. - Social work to assist with financial and logistical support. To summarize the plan, - refill oxycodone and refer palliative medicine - candidate for gemcitabine/Abraxane to start C1D1 11/08/2024, with neoadjuvant intent - refer to see [facility] to establish care and transition chemo locally - to return with CT CAP and pancreas protocol after every 2 cycles to see med onc and Dr. Pena - anti-emetic to preferred pharmacy - refer genetic counseling for BRCA testing - [id number] ctDNA The patient and daughter were given opportunity to ask questions during the visit, and they appeared satisfied with the discussion today. I spent a total of 60 minutes on the date of the service which included preparing to see the patient, [id number] patient care, completing clinical documentation, performing a medically appropriate examination, counseling and educating the patient/family/caregiver, and ordering medications, tests, or procedures She Marte Ma, MD Recording using V[employer] software for draft documentation of the visit was discussed with the patient/authorized medical center representative; all questions welcomed and answered. Patient/authorized medical center representative agreed to proceed [1] Social History Tobacco Use Smoking status: Every Day Types: Cigarettes Smokeless tobacco: Never Substance Use Topics Alcohol use: Not Currently Drug use: Yes Types: Marijuana Comment: medical documented in this encounter [facility] 11-01-2024 Note HNO ID: [id number] Author: SHE DRAPER MD Service: ? Author Type: Physician Type: Progress Notes Filed: 11/01/2024 16:07 Note Text: [facility] NEW PATIENT VISIT Department of Hematology and Medical Oncology Chief Complaint(s)/ Reason for Visit Locally advanced pancreas adenocarcinoma with left renal artery, adrenal gland involvement. [facility] Surgery: Dr. Pena History of Presenting Illness Puja Wyman is a 54 year old female with recently diagnosed locally advanced pancreas tail cancer. The pertinent detail of the oncologic history is as follows: Oncology History Cancer of pancreas, tail (HCC) 09/2024 Initial Diagnosis Cancer of pancreas, tail (HCC) 10/03/2024 MRI Abdo 1. Complex solid cystic lesion involving the pancreatic body/tail, measuring at least 5.8 x 4.8 x 5.8 cm, demonstrating thick irregular peripheral enhancement as well as irregular internal septal enhancement. Precise relationship to pancreatic duct is difficult to discern. No pancreatic ductal dilatation. This lesion abuts portions of the lesser curvature of the proximal stomach, as as well as the medial spleen, and left adrenal gland. Lesion may reflect cystic neoplasm or necrotic adenocarcinoma. Recommend correlation with FNA results. 2. Portions of the splenic artery and splenic vein are obscured by complex solid cystic lesion. Visualized portions appear patent. Motion artifact limits evaluation to some extent. 3. No suspicious liver lesions. 4. A few prominent peripancreatic lymph nodes without bulky adenopathy. 5. Pancreatic perilesional stranding/fluid localized to the left upper quadrant with trace perisplenic ascites 10/16/2024 CT CAP 1. 5.5 cm solid pancreatic mass. This demonstrates some necrosis. The mass is seen to impress mildly on the posterior wall of the stomach. 2. No hepatic or pancreatic ductal dilatation. 3. Bilateral renal cysts. These require no further imaging. 1. A few punctate pulmonary nodules right upper lobe measuring up to 3 mm. Fleischner Society Guidelines for low-risk or high-risk patients recommend that one should consider chest CT at 12 months due to the morphology and/or location of this nodule. 2. Mild emphysema most pronounced towards the apices where there is pleural parenchymal scarring. No consolidation or pleural effusions. No pneumothorax. 3. Partial visualization of heterogeneous pancreatic lesion. 10/03/2024 Pathology [facility] - Pancreas, Tail - Fine Needle Aspirate: POSITIVE FOR MALIGNANT CELLS. Adenocarcinoma. 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 Pena for evaluation. She has a history of diabetes mellitus on insulin, peripheral neuropathy, and emphysema secondary to a history of smoking. On 10/02/2024, patient presented to an outside hospital ER with epigastric pain radiating to her back and left shoulder blade, persisting for six months. This was associated with a 30-pound weight loss over six months, nausea, and vomiting. An MRI of the abdomen on 10/03/2024 revealed a 5.8 x 4.8 x 5.8 cm mass in the pancreatic body/tail, abutting the lesser curvature of the proximal stomach, spleen, and left adrenal gland. An FNA biopsy of the pancreatic tail mass on the same day confirmed adenocarcinoma. A CT scan on 10/16/2024 confirmed a 5.5 cm solid pancreatic mass with necrosis, mildly impressing on the posterior wall of the stomach. It also showed a few punctate pulmonary nodules in the right upper lobe, with a follow-up CT scan recommended in 12 months, and evidence of mild emphysema. On 10/29/2024, patient was evaluated by Dr. Pena, who recommended systemic chemotherapy with re-evaluation for surgical intervention later. In recent history, patient reports severe pain rated at 6/10, managed with oxycodone 10 mg every 7 hours, though prescribed every 4 hours. She experiences significant functional limitations due to back pain and weakness, unable to lift more than 5 pounds or perform household tasks like cooking, doing dishes, or laundry. She also reports neuropathy in her right leg and left arm, with the leg neuropathy attributed to a misplaced cage device affecting the sciatic nerve. Patient has been on insulin for six months, with a history of diabetes for 4-5 years. She reports severe fatigue, often needing to pull up hand while driving to rest, and difficulty sleeping due to pain. She has an upcoming appointment with a palliative medicine doctor in November. Review of Systems Constitutional: (+) unintended 30 lb weight loss, (+) fatigue, (+) generalized weakness Gastrointestinal: (+) epigastric pain radiating to back and left shoulder blade, (+) nausea, (+) vomiting, (+) constipation Musculoskeletal: (+) low back pain Neurological: (+) right leg numbness, (+) left arm numbness P (more content not included)... [facility] 10-29-2024 Telephone encounter Note Date/Time patient contacted: 10.29.2024 4:00 pm Has a follow up appointment been made with your primary care provider? (If yes, note date/time of appt. If no, are we able to schedule or get patient in contact with provider) : She had a follow up appointment today with Dr. Pena Have your prescriptions been filled?: (If no, why not, contact pharmacist if needed): yes but know pain medication Now that you are home, I want to make sure that you understand the most important things about taking care of yourself. I see that you were discharged with a diagnosis of Diabetic ketoacidosis , do you know what symptoms or health problems to watch for or when to call your provider? Yes . She has a sliding scale for Insulin Do you have any other questions about your discharge or follow up care instructions?: (if yes, what) : No Are there any caregivers from the hospital that you would like to recognize or compliment? Every one was great. [facility] 10-29-2024 Miscellaneous Notes Date/Time patient contacted: 10.29.2024 4:00 pm Has a follow up appointment been made with your primary care provider? (If yes, note date/time of appt. If no, are we able to schedule or get patient in contact with provider) : She had a follow up appointment today with Dr. Pena Have your prescriptions been filled?: (If no, why not, contact pharmacist if needed): yes but know pain medication Now that you are home, I want to make sure that you understand the most important things about taking care of yourself. I see that you were discharged with a diagnosis of Diabetic ketoacidosis , do you know what symptoms or health problems to watch for or when to call your provider? Yes . She has a sliding scale for Insulin Do you have any other questions about your discharge or follow up care instructions?: (if yes, what) : No Are there any caregivers from the hospital that you would like to recognize or compliment? Every one was great. documented in this encounter [facility] 10-29-2024 Note HNO ID: [id number] Author: KAREN PENA, DO Service: ? Author Type: Physician Type: Progress Notes Filed: 10/29/2024 11:00 Note Text: [facility] STAFF PHYSICIAN NOTE OF PERSONAL INVOLVEMENT IN CARE I have reviewed the history and physical examination obtained and documented by the medical student and I personally participated in the denson components. I have discussed the case and management of the patient's care. The following comments revise or confirm relevant denson components of the note. IMPRESSION: This is a 54 year old female who presents with biopsy-proven locally advanced pancreatic tail adenocarcinoma. Hgb A1c is 13.5%. No steatorrhea. Maintaining weight now - initially lost a good amount of weight. No family history of pancreatic cancer. No alcohol. Smokes 4 cigarettes per day - has cutdown significantly on this but unable to quit. ECOG 1. CA 19-9 3,109.3. Imaging was directly reviewed and there is a large pancreatic tail mass with involvement of the left renal artery, adrenal gland, and potentially colon and stomach. No evidence of metastatic disease. Prior surgical history is significant for a laparoscopic tubal ligation and hysterectomy. Also had multiple back surgeries and now walks with a walker. PLAN: Discussed that this is locally advanced pancreatic cancer. Recommend chemotherapy first. Will get her set up to see oncology. Will put in a referral for social work given that she has no help at home - her works 2 jobs and no other real family support. Referral for smoking cessation. Referral to endocrinology for diabetes management. Will get slides from [facility] to review here. Karen Pena DO Date of Service: October 29, 2024 Time of Service: 10:28 AM Medical Decision Making: Problems: High: Illness/injury w/ threat to life/body function Data: Unique test result(s) reviewed: 3+ Risk: High: High risk from testing/treatment Medical Decision Making Level: 5 - High [facility] 10-29-2024 History of Present illness Narrative [facility] STAFF PHYSICIAN NOTE OF PERSONAL INVOLVEMENT IN CARE I have reviewed the history and physical examination obtained and documented by the medical student and I personally participated in the denson components. I have discussed the case and management of the patient's care. The following comments revise or confirm relevant denson components of the note. IMPRESSION: This is a 54 year old female who presents with biopsy-proven locally advanced pancreatic tail adenocarcinoma. Hgb A1c is 13.5%. No steatorrhea. Maintaining weight now - initially lost a good amount of weight. No family history of pancreatic cancer. No alcohol. Smokes 4 cigarettes per day - has cutdown significantly on this but unable to quit. ECOG 1. CA 19-9 3,109.3. Imaging was directly reviewed and there is a large pancreatic tail mass with involvement of the left renal artery, adrenal gland, and potentially colon and stomach. No evidence of metastatic disease. Prior surgical history is significant for a laparoscopic tubal ligation and hysterectomy. Also had multiple back surgeries and now walks with a walker. PLAN: Discussed that this is locally advanced pancreatic cancer. Recommend chemotherapy first. Will get her set up to see oncology. Will put in a referral for social work given that she has no help at home - her works 2 jobs and no other real family support. Referral for smoking cessation. Referral to endocrinology for diabetes management. Will get slides from [facility] to review here. Karen Pena DO Date of Service: October 29, 2024 Time of Service: 10:28 AM Medical Decision Making: Problems: High: Illness/injury w/ threat to life/body function Data: Unique test result(s) reviewed: 3+ Risk: High: High risk from testing/treatment Medical Decision Making Level: 5 - High INITIAL PANCREATIC CANCER PATIENT NAME: Puja Wyman DATE of SERVICE: 10/29/2024 TIME of SERVICE: 8:25 AM PCP: No primary care provider on file. This consult was requested by No ref. provider found for evaluation of pancreatic cyst(s) My final recommendations will be communicated to the requesting health care provider by way of the shared medical record or [place] postal services. HPI: Ms. Wyman is a 54 year old female with PMH of chronic back pain, T2DM on insulin, HTN, bioplar disorder, perpheral neuropathy who presents for biopsy-confirmed pancreatic cancer. [facility] for epigastric pain that radiates to her back and her left shoulder blade that she originally attributed to possible kidney infection. Her pain started six months ago, but she neglected it to care for her hospitalized mother who passed in May. She has lost 30 pounds in the last 6 months, with nausea and vomitting twice a week. She had constipation, having a bowel movement every 2-3 weeks due to abdominal pain related to defecation. She is now on Miralax and stool softener and has formed stools daily. Denies anorexia, diarrhea, or past pancreatitis. Diabetes used to be well controlled on oral medications 4 years ago. However, she stopped taking her diabetes medication because she was told that her diabetes was well-controlled and she lost her medical insurance when she moved to [place]. She is now on insulin without a primary provider. CT abd/pel revealed a 5.6 cm distal pancreatic mass suspicious for pancreatic cancer. CA 19-9 significantly elevated at 3109.3. 10/03 EUS FNA positive for adenocarcinoma. HbA1c 10/15 13.5. Past abdominal surgeries: laparoscopic tubal ligation. Laparoscopic hysterectomy. Does not drink alcohol. Current smoker. Started smoking since 13, now on 4 cigarettes/day, interested in smoking cessation. The patient does not have support at home. PAST MEDICAL HISTORY See HPI PAST SURGICAL HISTORY See HPI FAMILY HISTORY See HPI Pancreatic Cancer- No Colon Cancer- No Breast Cancer- No Pancreatitis- No SOCIAL HISTORY SOCIAL HISTORY[1] REVIEW OF SYSTEMS GENERAL: Unintentional weight loss, Fatigue RESPIRATORY: Cough; dry CARDIOVASCULAR: Negative for chest pain GI: See HPI PHYSICAL EXAM: General Appearance: Thin and Walker. Skin: Skin color, texture, turgor normal, no suspicious rashes or lesions. Lungs: Unlabored on room air. Heart: Acyanotic. Abdomen: Soft, diffusely tender on bilateral upper quadrants on light palpation. LABS ALT (U/L) Date Value 05/01/2024 19 AST (U/L) Date Value 05/01/2024 13 No components found for: LB Alkaline Phosphatase (U/L) Date Value 05/01/2024 181 Imaging 10/16/2024 CT abd/pel w IV contrast 1. 5.5 cm solid pancreatic mass. This demonstrates some necrosis. The mass is seen to impress mildly on the posterior wall of the stomach. 2. No hepatic or pancreatic ductal dilatation. 3. Bilateral renal cysts. These require no further imaging. 10/22/2024 CT chest w IV contrast Again seen is a 5.5 cm distal pancreatic mass. Small amount of fluid in the thoracic esophagus. 10/03/2024 MRI abd 1. Complex solid cystic lesion involving the pancreatic body/tail, measuring at least 5.8 x 4.8 x 5.8 cm, demonstrating thick irregular peripheral enhancement as well as irregular internal septal enhancement. Precise relationship to pancreatic duct is difficult to discern. No pancreatic ductal dilatation. This lesion abuts portions of the lesser curvature of the proximal stomach, as as well as the medial spleen, and left adrenal gland. Lesion may reflect cystic neoplasm or necrotic adenocarcinoma. Recommend correlation with FNA results. 2. Portions of the splenic artery and splenic vein are obscured by complex solid cystic lesion. Visualized portions appear patent. Motion artifact limits evaluation to some extent. 3. No suspicious liver lesions. 4. A few prominent peripancreatic lymph nodes without bulky adenopathy. 5. Pancreatic perilesional stranding/fluid localized to the left upper quadrant with trace perisplenic ascites. 10/02/2024 CT abd/pel without contrast A 5.6 cm mass in the distal pancreas is highly concerning for primary pancreatic cancer Hepatobiliary: Unremarkable liver without biliary dilation evident. Lymph Nodes: No abdominal lymphadenopathy is evident. Assessment ASSESSMENT: 54 year old female with PMH of chronic back pain, T2DM on insulin, HTN, bioplar disorder, perpheral neuropathypresents with locally advanced biopsy-confirmed pancreatic cancer. Ca 19-9 3109.3. PLAN: - Oncology consult for neoadjuvant chemotherapy/radiotherapy - Social work consult - Endocrinology consult for poorly controlled T2DM SIGNATURE: Tramaine Govea [1] Social History Tobacco Use Smoking status: Every Day Types: Cigarettes Smokeless tobacco: Never Substance Use Topics Alcohol use: Not Currently Drug use: Yes Types: Marijuana Comment: medical What is the reason for your visit today? Consult Who is your referring physician? Are you having poor oral intake? Yes Have you had unintentional weight loss of 15 lbs/7 Kg in the last 3-6 months? yes Bowels: Constipation Wound: clean & dry Temperature: No Drains: No documented in this encounter [facility] 10-29-2024 Note HNO ID: [id number] Author: ?, ?, ? Service: ? Author Type: ? Type: Progress Notes Filed: 10/29/2024 11:00 Note Text: INITIAL PANCREATIC CANCER PATIENT NAME: Puja Wyman DATE of SERVICE: 10/29/2024 TIME of SERVICE: 8:25 AM PCP: No primary care provider on file. This consult was requested by No ref. provider found for evaluation of pancreatic cyst(s) My final recommendations will be communicated to the requesting health care provider by way of the shared medical record or [employer] services. HPI: Ms. Wyman is a 54 year old female with PMH of chronic back pain, T2DM on insulin, HTN, bioplar disorder, perpheral neuropathy who presents for biopsy-confirmed pancreatic cancer. She first presented to the [facility] ED on 10/02 for epigastric pain that radiates to her back and her left shoulder blade that she originally attributed to possible kidney infection. Her pain started six months ago, but she neglected it to care for her hospitalized mother who passed in May. She has lost 30 pounds in the last 6 months, with nausea and vomitting twice a week. She had constipation, having a bowel movement every 2-3 weeks due to abdominal pain related to defecation. She is now on Miralax and stool softener and has formed stools daily. Denies anorexia, diarrhea, or past pancreatitis. Diabetes used to be well controlled on oral medications 4 years ago. However, she stopped taking her diabetes medication because she was told that her diabetes was well-controlled and she lost her medical insurance when she moved to [place]. She is now on insulin without a primary provider. CT abd/pel revealed a 5.6 cm distal pancreatic mass suspicious for pancreatic cancer. CA 19-9 significantly elevated at 3109.3. 10/03 EUS FNA positive for adenocarcinoma. HbA1c 10/15 13.5. Past abdominal surgeries: laparoscopic tubal ligation. Laparoscopic hysterectomy. Does not drink alcohol. Current smoker. Started smoking since 13, now on 4 cigarettes/day, interested in smoking cessation. The patient does not have support at home. PAST MEDICAL HISTORY See HPI PAST SURGICAL HISTORY See HPI FAMILY HISTORY See HPI Pancreatic Cancer- No Colon Cancer- No Breast Cancer- No Pancreatitis- No SOCIAL HISTORY SOCIAL HISTORY[1] REVIEW OF SYSTEMS GENERAL: Unintentional weight loss, Fatigue RESPIRATORY: Cough; dry CARDIOVASCULAR: Negative for chest pain GI: See HPI PHYSICAL EXAM: General Appearance: Thin and Walker. Skin: Skin color, texture, turgor normal, no suspicious rashes or lesions. Lungs: Unlabored on room air. Heart: Acyanotic. Abdomen: Soft, diffusely tender on bilateral upper quadrants on light palpation. LABS ALT (U/L) Date Value 05/01/2024 19 AST (U/L) Date Value 05/01/2024 13 No components found for: LB Alkaline Phosphatase (U/L) Date Value 05/01/2024 181 Imaging 10/16/2024 CT abd/pel w IV contrast 1. 5.5 cm solid pancreatic mass. This demonstrates some necrosis. The mass is seen to impress mildly on the posterior wall of the stomach. 2. No hepatic or pancreatic ductal dilatation. 3. Bilateral renal cysts. These require no further imaging. 10/22/2024 CT chest w IV contrast Again seen is a 5.5 cm distal pancreatic mass. Small amount of fluid in the thoracic esophagus. 10/03/2024 MRI abd 1. Complex solid cystic lesion involving the pancreatic body/tail, measuring at least 5.8 x 4.8 x 5.8 cm, demonstrating thick irregular peripheral enhancement as well as irregular internal septal enhancement. Precise relationship to pancreatic duct is difficult to discern. No pancreatic ductal dilatation. This lesion abuts portions of the lesser curvature of the proximal stomach, as as well as the medial spleen, and left adrenal gland. Lesion may reflect cystic neoplasm or necrotic adenocarcinoma. Recommend correlation with FNA results. 2. Portions of the splenic artery and splenic vein are obscured by complex solid cystic lesion. Visualized portions appear patent. Motion artifact limits evaluation to some extent. 3. No suspicious liver lesions. 4. A few prominent peripancreatic lymph nodes without bulky adenopathy. 5. Pancreatic perilesional stranding/fluid localized to the left upper quadrant with trace perisplenic ascites. 10/02/2024 CT abd/pel without contrast A 5.6 cm mass in the distal pancreas is highly concerning for primary pancreatic cancer Hepatobiliary: Unremarkable liver without biliary dilation evident. Lymph Nodes: No abdominal lymphadenopathy is evident. Assessment ASSESSMENT: 54 year old female with PMH of chronic back pain, T2DM on insulin, HTN, bioplar disorder, perpheral neuropathypresents with locally advanced biopsy-confirmed pancreatic cancer. Ca 19-9 3109.3. PLAN: - Oncology consult for neoadjuvant chemotherapy/radiotherapy - Social work consult - Endocrinology consult for poorly controlled T2DM SIGNATURE: Tramaine Govea [1] Social Hi (more content not included)... [facility] 10-29-2024 Note HNO ID: [id number] Author: YULIET CARRASQUILLO MA Service: ? Author Type: [place] Type: Progress Notes Filed: 10/29/2024 11:00 Note Text: What is the reason for your visit today? Consult Who is your referring physician? Are you having poor oral intake? Yes Have you had unintentional weight loss of 15 lbs/7 Kg in the last 3-6 months? yes Bowels: Constipation Wound: clean AND dry Temperature: No Drains: No [facility] 10-23-2024 Note Discharge Summary Puja Wyman : 1970 ADMIT DATE: 10/15/2024 DISCHARGE DATE: 10/23/2024 PRIMARY CARE PHYSICIAN: Donna Kumar DO VISIT STATUS: inpatient CODE STATUS: Full Code DISCHARGE DIAGNOSES: Abdominal pain and nausea Pancreatic cancer DKA DM with hyperglycemia HTN Hypokalemia Anemia BPD Neuropathy Hyperlipidemia RLS Severe malnutrition HOSPITAL COURSE: 54 year old presented with worsening abdominal pain, n/v, poor oral intake and was found to be in DKA. She was admitted and placed on the DKA lite protocol. She was seen by Endocrinology and Palliative Care. She was also evaluated by Psychiatry, GI and Hem/Onc. It was thought that transfer to tertiary center may be of benefit to her. After discussion with [facility], they recommended outpatient follow up next week with Hem/Onc and Hepatobiliary Surgery at [facility]. They will make arrangements with patient. Her insulin regimen was adjusted by Endocrinology, pain control regimen adjusted by Palliative Care and she was discharged home. SIGNIFICANT DIAGNOSTIC STUDIES: CT abd/pelvis, CXR, CT chest CONSULTANTS: Endocrinology, Palliative Care, Psychiatry, GI, Hem/Onc RECOMMENDED NEXT STEPS: Continue medications as below. Close follow up with Dr Pena/[facility] Hem/Onc next week to arrange next steps (office to call patient to arrange). Physical Exam: Vitals: BP 140/88 (BP Location: Right arm, Patient Position: Sitting) Pulse 89 Temp 36.8 ?C (98.2 ?F) (Temporal) Resp 16 Ht 5' 2 (1.575 m) Wt 118 lb (53.5 kg) SpO2 94% BMI 21.58 kg/m? Pulse Ox: SpO2 Av.8 % Min: 94 % Max: 99 % General appearance: alert, cooperative and no distress Mental Status: oriented to person, place and time and normal affect Lungs: clear to auscultation bilaterally, normal effort Heart: regular rate and rhythm, + murmur Abdomen: soft, slightly tender, nondistended, bowel sounds present, no masses Extremities: no edema, redness, tenderness in the calves Skin: no gross lesions, rashes LABS: CBC: Recent Labs 10/21/24 0258 10/22/24 0216 10/23/24 0405 WBC 9.4 8.2 9.4 RBC 4.35 4.23 4.18 HGB 12.1 11.8 11.4* HCT 37.2 36.4 36.2 MCV 85.5 86.1 86.6 RDW 13.2 13.4 13.2 PLT 314 333 350 BMP: Recent Labs 10/21/24 0258 10/22/2421510/23/24404 NA 134* 138 135* K 4.0 4.1 4.4 CL 100 104 100 CO2 BUN 11 14 17 CREATININE 0.70 0.71 0.70 GLUCOSE 296* 206* 272* CALCIUM 9.2 9.2 9.3 ANIONGAP 8 7 7 LIVER PROFILE: Recent Labs 10/22/246 10/23/24 0405 AST 19 19 ALT 10 13 BILITOT 0.2 0.2 ALKPHOS 96 96 PROT 6.1* 6.3* DISCHARGE MEDICATIONS: Medication List START taking these medications acetaminophen 500 MG tablet Commonly known as: Tylenol Take 2 tablets (1,000 mg) by mouth 3 times daily. busPIRone 10 MG tablet Commonly known as: Buspar Take 1 tablet (10 mg) by mouth 2 times daily at 0800 and 1400. Start taking on: October 24, 2024 * FreeStyle Meka 3 Plus Sensor misc 1 each every 15 days. * FreeStyle Meka 3 Plus Sensor misc Use as directed lurasidone 20 MG tablet Commonly known as: Latuda Take 1 tablet (20 mg) by mouth daily (with breakfast). Start taking on: October 24, 2024 polyethylene glycol (PEG) 3350 17 g packet Commonly known as: Miralax Take 17 g by mouth daily. Start taking on: October 24, 2024 senna-docusate sodium 8.6-50 MG tablet Commonly known as: Senokot-S Take 2 tablets by mouth 2 times daily. * This list has 2 medication(s) that are the same as other medications prescribed for you. Read the directions carefully, and ask your doctor or other care provider to review them with you. CHANGE how you take these medications gabapentin 300 MG capsule Commonly known as: Neurontin Take 2 capsules (600 mg) by mouth 3 times daily. What changed: medication strength how much to take insulin glargine 100 UNIT/ML injection Commonly known as: Lantus Inject 22 Units under the skin Nightly. One dose in the morning and one nightly What changed: how much to take when to take this Insulin Lispro 100 UNIT/ML solution injection Commonly known as: Humalog Inject 14 Units under the skin 3 times daily (with meals). What changed: how much to take oxyCODONE 10 MG immediate release tablet Commonly known as: Roxicodone Take 1 tablet (10 mg) by mouth every 4 hours as needed for severe pain (7-10) or moderate pain (4-6) for up to 7 days. What changed: medication strength how much to take when to take this reasons to take this rOPINIRole 1 MG tablet Commonly known as: Requip Take 1 tablet (1 mg) by mouth every morning. What changed: when to take this additional instructions CONTINUE taking these medications cyclobenzaprine 5 MG tablet Commonly known as: Flexeril lisinopril 10 MG tablet metoprolol tartrate 25 MG tablet Commonly known as: Lopressor oxybutynin 5 MG tablet Commonly known as: Ditropan ve (more content not included)... [facility] 10-23-2024 History of Present illness Narrative Received call from room service that pt requested discontinuation of Ensure Max. Pt's family reportedly is bringing in [employer] supplements for the patient and would prefer to take these over available oral nutritional supplements on the [facility] formulary. RD will follow. Images from the original note were not included. Palliative Care Progress Note Chief Complaint: Puja Wyman is a 54 y.o. female with chief complaint of Dysphagia. Palliative Care is actively following. Assessment/Plan Goals of care Puja Wyman retains capacity for medical decision-making - patient's legal surrogate decision makers are at this time are her 2 daughters - patient wants to complete HCPOA with her brother Garrison Escobedo([phone]) as her HCPOA and her daughter Dana Fernandez([phone]) as alternate agent - patient's goal is to have her symptoms well controlled, go to [facility] and have surgery for her cancer - Code status remains Full Code - will continue to have ongoing goals of care conversations with patient, family Bipolar Disorder/HELENA - patient's mood better today - patient on Latuda 20 mg daily, Buspar 5 mg BID Pain - likely due to combination of patient's chronic pain along with pain from cancer - patient with total pain picture with anxiety playing a big part in her pain - requested Psychiatry and palliative trolley cleaner for visit on 10/21 - increased oxycodone dose to 10 mg po every 4 hrs prn on 10/21 from 5 mg, increased gabapentin to 600 mg TID, scheduled tylenol 1000 mg TID - patient today stated that her pain is much better controlled, used Oxycodone 10 mg po X 4 in last 24 hrs - stated having BM also helped a lot - at this time will continue with above regimen for pain control - patient stated she will stay with her daughter who is supervising appraiser at [place] after discharge from hospital - will make appointment for patient at [facility] after discharge - will continue to monitor patient's pain closely and adjust his medications as needed Constipation - resolved - patient had BM this am Adenocarcinoma of the pancreas - patient has a pancreatic mass noted on CT 10/02/2024 - biopsy was postive for malignant adenocarcinoma, no distant metastasis - patient seen by Dr. Jha from Oncology on 10/21, per his notes as per surgical team note on 10/04/2024, recommended referral to tertiary care center for hepatobiliary surgical services as [facility] currently does not have a service available - per Dr. Jha's notes it may be reasonable to directly transfer patient to [facility] for further assessment - appreciate PRODUCT MANAGER MEDICAL DEVICE-CLARENCE Stewart helping with transfer to [facility] - Dr. Pena( hepatobiliary surgeon) from [facility] called back, advised outpatient visit Dysphagia - resolved Severe PCM - patient is hospice appropriate Restless leg syndrome - on Ropinrole 0.4 mg TID Palliative Care Encounter -Code Status: Full Code - assessed patient or surrogate's understanding of medical condition, addressed goals of care pertinent to the condition and communicated this to the medical team PC Time Stamp: Total of 55 minutes spent on this encounter including Chart review, Patient visit and exam, Documentation in EHR, Care coordination, and Communicating with primary attending or other consultants. Discharge planning: Cleared for discharge with follow up at [facility] after discharge Patient meets criteria for general inpatient hospice care: No Palliative Care IDT members involved: None Discussed the plan of care with the other interdisciplinary team (IDT) members of the Palliative Care and Hospice teams and Patient. Subjective: Subjective/Events Puja Wyman is a 54 y.o. female with pmh significant for pancreatic adenocarcinoma, constipation, bipolar disorder, restless leg syndrom, HTN, peripheral neuropathy, chronic back pain, anxirty who presented to the ED on 10/15 with chief complaint of dysphagia and abdominal pain. Patient seen and examined this morning. Patient was calm, quiet when seen this am. Patient was lying on bed. Patient stated her pain has been much better controlled. Patient denied any nausea. Patient had bowel movement this morning. Patient used oxycodone 10 mg X 4 in last 24 hrs. Palliative Care Assessments: Goals of care: Continue Current Management, Cure, utilize all available medical therapies necessary, Improve or Maintain Function/Quality of Life, and Improve uncontrolled symptoms Advanced Directives: are complete, but not given to hospital yet. 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 [place] Symptom Assessment Score [place] Score Pain Score (if non-verbal, add .FLACC below) 3 Tiredness Score 5 Nausea Score 0 Depression Score 2 Anxiety Score 0 Drowsiness Score 0 Anorexia Score (0= eating well, 10= not eating) 5 Wellbeing Score (10= worst sense of well-being) 6 Constipation 0 Dyspnea Score (0= no shortness of breath) 0 Family Meeting: Participants: patient Family meeting was held to discuss: Symptom management Objective: BP 159/92 Pulse 106 Temp 36.4 C (97.5 F) (Temporal) Resp 19 Ht 5' 2 (1.575 m) Wt 118 lb (53.5 kg) SpO2 99% BMI 21.58 kg/m Appearance: ill looking Eyes: clear conjunctiva, PERRL, pupils normal size ENT: hearing normal, MMM without oral thrush, no erythema or exudate on hard or soft palate, tongue normal Neck: supple, no LAD, no thyromegaly Respiratory: breathing unlabored, lungs CTA B anteriorly without w/r/r Cardiovascular: heart RRR without m/g/r, pedal pulses palpable Gastrointestinal: abdomen soft, non-tender, non-distended, normoactive bowel sounds. No masses or hernia. Musculoskeletal: normal digits and nails without cyanosis or clubbing, normal muscle strength and tone, no edema of BL LE Skin: warm and dry, no rash or wounds Neurologic: AxOX3, Weakness present Psychiatric: Calm Medication information: 24-hour PRN meds received: Oxycodone Oxycodone 10 mg po X 4 Results/Verification of Data Review Objective data reviewed (must include dates reviewed for labs, imaging reports and other specialty notes): labs, imaging, MAR, Vitals reviewed 10/23/24 Data in Support of Terminal Illness: Is patient hospice appropriate? TBD Mgagie Rosado MD Department of Internal Medicine Division of Endocrinology, Diabetes, & Metabolism Endocrinology Note Patient Name: Puja Wyman : 1970 AGE: 54 y.o. Room/Bed: [facility]/[address] Admission Date: 10/15/2024 Visit Date: 10/23/2024 Reason for Endocrine Consult: DKA, IDDM, Hyperglycemia Provider/Team Requesting Consult: Dr. Rivera PCP: Donna Kumar DO Outpt Vacuum Cleaner Repairer: No ASSESSMENT: DKA Insulin Dependent Diabetes Mellitus Pancreatic cancer status post EUS with FNA positive for adenocarcinoma Pancreatic Mass Abdominal pain Tachycardia Constipation PLAN: Continue Lantus 22 units nightly Increase Humalog to 14 units TID Continue Humalog to low dose sliding scale TID Counseled patient to take insulin regularly. - Set timers to help with regularity or insulin Pt was counseled that diet and exercise are the foundation of DM treatment. If these 2 areas are not optimized then the pt will likely require more medications or higher doses to achieve control. Patient counseled on risk of complications associated with uncontrolled Diabetes Patient counseled on BS targets and A1C target. Patient counseled on importance of diet, including eating 3 meals a day with consistent carbohydrate and protein Patient counseled on importance of checking BS regularly. Patient is interested in CGM for discharge - Emka 3 plus started inpatient. ICU goal <180 GMF goal <150 POCT BG ACHS Hypoglycemia management per protocol Carb controlled diet ANTICIPATED ENDOCRINE HOME GOING RECOMMENDATIONS: Optimized for Discharge from Endocrine standpoint: Yes Home Going Endocrine Rx Recommendations-- Lantus 22 units nightly Humalog 14 units TID before meals Patient to start Meka 3. Will need prescription for Meka 3 upon discharge. Reports she has insulin and all other supplies for discharge. Outpt Follow Up-- TBD SUBJECTIVE/HPI: CHIEF COMPLAINT: Chief Complaint Patient presents with Dysphagia Pt states that she has been having diffuculty swallowing due to pain for the last 3-4 months. Pt states that she was diagnosed with pancreatic cancer about 1 week ago. Reports her doctor is aware of this problem but she is unaware of whether a work up was done for that or not. Puja Wyman is a 54 yo female who presented to ED with abdominal pain, epigastric pain. Patient was diagnosed with Pancreatic cancer 1 week ago. Patient is presently on insulin and reports taking insulin but blood sugars still remain uncontrolled prior to admission. Reports she was taking insulin even if she wasn't eating but blood sugars were still elevated. Type of DM: 2 Onset of DM: 5 years ago Home DM Medication Regimen: Lantus 30 units BID AC Humalog 10 units TID AC DM control (last A1c/glucose data): Lab Results Component Value Date HGBA1C 13.5 (H) 10/15/2024 Interval history 10/23/2024 Bgls reviewed and listed below- Patient alert and oriented sitting up in bed Patient is inconsistent with insulin at home. Counseled patient on need to be consistent with insulin doses. Patient reports abdominal pain, flank pain. Meka sensor started on left arm, Nely started on phone inpatient. Glucose Date/Time Value Ref Range Status 10/23/2024 06:51 AM 251 (H) 70 - 100 mg/dL Final 10/22/2024 08:20 PM 230 (H) 70 - 100 mg/dL Final 10/22/2024 05:19 PM 239 (H) 70 - 100 mg/dL Final 10/22/2024 02:41 PM 116 (H) 70 - 100 mg/dL Final 10/22/2024 02:04 PM 144 (H) 70 - 100 mg/dL Final 10/22/2024 11:54 AM 313 (H) 70 - 100 mg/dL Final Complications: Cardiovascular -- No Statin Use -- No Nephropathy -- No AJAY/ARB Use -- No Obesity -- No Other -- Yes Pancreatic Mass Family history of dm: Both parents Hospitalized for DM: yes when initially diagnosed Home diet: Appetite reduced with fatigue in past week. Breakfast - Usually skips. Weekends - [employer] full breakfast Lunch - Not eating regularly Dinner - minimal intake recently Home exercise: NA Complications: Pancreatic mass Previously used medications: Steglatro 5 mg daily Glimepiride 4 mg daily Ozempic Farxiga Review of Systems Constitutional: Positive for fatigue. Respiratory: Negative for shortness of breath. Cardiovascular: Negative for chest pain. Gastrointestinal: Positive for abdominal pain. Neurological: Positive for weakness. ROS negative except for those mentioned in HPI. OBJECTIVE: Vitals: 10/22/24 0727 10/22/24 1512 10/22/24201810/23/24 0723 BP: 133/86 150/97 145/88 141/96 BP Location: Left arm Right arm Right arm Left arm Patient Position: Lying Sitting Sitting Lying Pulse: 88 94 95 98 Resp: 20 16 18 16 Temp: 36.4 C (97.6 F) 36.7 C (98 F) 36.4 C (97.6 F) 36.4 C (97.5 F) TempSrc: Temporal Temporal Temporal Temporal SpO2: 98% 99% 98% 99% Weight: Height: Physical Exam Vitals reviewed. Constitutional: General: She is not in acute distress. Appearance: Normal appearance. She is not ill-appearing, toxic-appearing or diaphoretic. HENT: Head: Normocephalic and atraumatic. Nose: Nose normal. Mouth/Throat: Mouth: Mucous membranes are moist. Eyes: General: No scleral icterus. Right eye: No discharge. Left eye: No discharge. Conjunctiva/sclera: Conjunctivae normal. Cardiovascular: Rate and Rhythm: Normal rate and regular rhythm. Pulses: Normal pulses. Heart sounds: Normal heart sounds. Pulmonary: Effort: Pulmonary effort is normal. No respiratory distress. Breath sounds: Normal breath sounds. Musculoskeletal: Cervical back: Normal range of motion. Right lower leg: No edema. Left lower leg: No edema. Skin: General: Skin is warm. Neurological: General: No focal deficit present. Mental Status: She is alert and oriented to person, place, and time. Psychiatric: Mood and Affect: Mood normal. Behavior: Behavior normal. 24 hour intake/output: Intake/Output Summary (Last 24 hours) at 10/23/2024 0754 Last data filed at 10/22/2024 0959 Gross per 24 hour Intake 678 ml Output -- Net 678 ml Diet: Adult diet Regular; 5 carb choices (75 gm/meal) Medications (as per EMR): HomeMeds: Current Outpatient Medications Medication Instructions celecoxib (CELEBREX) 100 mg, Oral, 2 times daily Continuous Glucose Sensor (SignifydStyle Meka 3 Plus Sensor) misc 1 each, Does not apply, Every 15 days cyclobenzaprine (FLEXERIL) 5 mg, 2 times daily PRN gabapentin (NEURONTIN) 400 mg, 3 times daily insulin glargine (LANTUS) 30 Units, SubCUTAneous, 2 times daily, One dose in the morning and one nightly Insulin Lispro (HUMALOG) 10 Units, SubCUTAneous, 3 times daily with meals lisinopril 10 mg, Daily metoprolol tartrate (LOPRESSOR) 25 mg, 2 times daily oxybutynin (DITROPAN) 5 mg, Oral, 3 times daily rOPINIRole (REQUIP) 1 mg, Oral, 1 tablet in AM and 2 tablet nightly venlafaxine (EFFEXOR) 50 mg Scheduled Meds:Scheduled Meds[1] Continuous Infusions:Continuous Meds[2] PRN Meds:PRN Meds[3] Diagnostic Workup: I reviewed pertinent Laboratory results, Radiographic results, and Other Clinical Notes at the time of today's encounter. Labs: No components found for: LABA1C No components found for: EAG Lab Results Component Value Date NA 135 (L) 10/23/2024 K 4.4 10/23/2024 CL 100 10/23/2024 CO2 28 10/23/2024 BUN 17 10/23/2024 CREATININE 0.70 10/23/2024 GLUCOSE 272 (H) 10/23/2024 CALCIUM 9.3 10/23/2024 No results found for: CHLPL, CHOL No results found for: TRIG No results found for: HDL No results found for: LDLCALC No results found for: VLDL No results found for: CHOLHDLRATIO No results found for: [id number] No results found for: TSH, C4LTKMG, U8ETVMP, THYROIDAB Radiology reportsas per the Radiologist Radiology: POCT glucose meter Result Date: 10/16/2024 Performed by: Megan Paige, [address] [place] [id number] CLIA ID: [id number] POCT glucose meter Result Date: 10/16/2024 Performed by: Megan Paige, [address] [place] [id number] CLIA ID: [id number] ECG 12 lead Sinus rhythm Compared to ECG 10/02/24 No significant change Electronically Signed On 10-16-2024 05:43:53 EDT by Ernesto Bacon POCT glucose meter Result Date: 10/16/2024 [facility]formed by: [facility], [address] [place] [id number] CLIA ID: [id number] POCT glucose meter Result Date: 10/16/2024 Performed by: Megan Paige, [address] [place] [id number] CLIA ID: [id number] CT abdomen pelvis w contrast Result Date: 10/16/2024 Patient Name: PUJA WYMAN : [address] [facility]#: [id number] Exam Date/Time: 10/15/2024 23:47 Procedure: CT ABDOMEN PELVIS W CONTRAST Ordering Provider: WILLIAMSON SAMANTHA Reason For Exam: Abdominal pain, acute, nonlocalized; Diffuse epigastric abd pain, hx pancreatic mass, FNA last week, worsening pain CLINICAL INFORMATION: Abdominal pain extending into the pelvis. Recent diagnosis of pancreatic cancer. CT ABDOMEN: 3 mm axial cuts are obtained from the dome of the liver through the iliac crests with 75 mL Isovue IV contrast. Dose reduction was employed with automated exposure control. The examination is compared to a previous study dated 10/02/2024. FINDINGS: A 5.5 cm solid but necrotic-appearing mass is redemonstrated involving the tail of the pancreas. This mildly indents the posterior wall of the stomach. The pancreatic duct is not dilated. The lung bases are included on the examination and demonstrate no focal infiltrates or effusions. The heart size is within normal limits. The liver is essentially homogeneous in its attenuation without focal abnormality. There is no intra or extra hepatic biliary dilatation. The spleen is normal in size. Both adrenal glands are normal. Both kidneys are identified in their cortical phase. Renal cysts are noted bilaterally. The largest measures 2 cm on the right. There is no evidence of hydronephrosis or hydroureter. No free fluid is seen within the abdomen. 1. 5.5 cm solid pancreatic mass. This demonstrates some necrosis. The mass is seen to impress mildly on the posterior wall of the stomach. 2. No hepatic or pancreatic ductal dilatation. 3. Bilateral renal cysts. These require no further imaging. CT PELVIS: 3 mm axial cuts are obtained from the iliac crests through the symphysis pubis with 75 mL Isovue IV contrast. Dose reduction was employed with automated exposure control. The examination is compared to a previous study dated 10/02/2024. FINDINGS: There are nondistended loops of small bowel. Air and stool are identified within the colon to the level of the rectum. There is no evidence of obstruction. The distal ureters and bladder are normal. No free fluid is seen within the pelvis. Sagittal reconstructed images of the spine demonstrate a Grade I/II spondylolisthesis L4 on L5. The slip is approximately 1 cm. The patient is status post L5-S1 fusion. IMPRESSION: 1. 5.5 cm solid pancreatic mass. This demonstrates some necrosis. The mass is seen to impress mildly on the posterior wall of the stomach. 2. No hepatic or pancreatic ductal dilatation. 3. Bilateral renal cysts. These require no further imaging. Report Dictated on Electronically Signed By: Deep Vogel MD Electronically Signed Date/Time: 10/16/2024 12:17 AM EDT History/Other: Past Medical History: Medical History[4] Past Surgical History: Surgical History[5] Allergy(ies): Allergies[6] Family History: Family History[7] Social History: Social History[8] Portions of the information within this encounter were entered using an electronic dictation system. Best attempts were made to edit/proofread the information prior to note completion. Despite the review of information, some errors may remain. If there are questions related to the information contained within the note please contact the signing physician directly. I spent 25 minutes with the pt which involved coordination of care, medical evaluation, review of records, and/or counseling of the pt regarding his/her condition/disease state/prognosis on the date of this note. [1] acetaminophen, 1,000 mg, Oral, TID busPIRone, 10 mg, Oral, BID- 8&2 enoxaparin, 40 mg, SubCUTAneous, Daily gabapentin, 600 mg, Oral, TID insulin glargine, 22 Units, SubCUTAneous, Nightly insulin lispro, 0-6 Units, SubCUTAneous, TID WC insulin lispro, 12 Units, SubCUTAneous, TID WC lisinopril, 10 mg, Oral, Daily lurasidone, 20 mg, Oral, Daily with breakfast metoprolol tartrate, 25 mg, Oral, BID nicotine, 1 patch, TransDERmal, Daily Followed by [START ON 12/01/2024] nicotine, 1 patch, TransDERmal, Daily polyethylene glycol (PEG) 3350, 17 g, Oral, Daily rOPINIRole, 1 mg, Oral, qAM AC rOPINIRole, 2 mg, Oral, Nightly senna-docusate sodium, 2 tablet, Oral, BID trospium, 20 mg, Oral, BID AC [2] [3] PRN medications: bisacodyl, cyclobenzaprine, dextrose, dextrose, glucagon (rDNA), glucose, hydrALAZINE, naloxone, ondansetron ODT OR ondansetron, oxyCODONE AND oxyCODONE, simethicone [4] Past Medical History: Diagnosis Date Anxiety Arthritis COPD (chronic obstructive pulmonary disease) (HCC) Diabetes mellitus (HCC) Headache Hypertension Mitral valve prolapse Neuropathy Non morbid obesity due to excess calories 08/04/2016 Pancreatic abnormality 10/03/2024 Mass; FNA via EUS Reactive depression 08/04/2016 Restless leg syndrome S/P fine needle aspiration 10/03/2024 ENDOSCOPIC ULTRASOUND EXAMINATION Gege Hawkins MD at [facility]; FNA Pancreatic Tail Mass Sleep apnea Tobacco abuse 08/04/2016 [5] Past Surgical History: Procedure Laterality Date ARM SURGERY (HISTORICAL) BACK SURGERY CYST REMOVAL ESOPHAGOSCOPY / EGD N/A 10/03/2024 ESOPHAGOGASTRODUODENOSCOPY, WITH ENDOSCOPIC ULTRASOUND EXAMINATION Gege Hawkins MD at [facility]; FNA Pancreatic Tail Mass EUS (HISTORICAL) N/A 10/03/2024 ESOPHAGOGASTRODUODENOSCOPY, WITH ENDOSCOPIC ULTRASOUND EXAMINATION Gege Hawkins MD at [facility]; FNA Pancreatic Tail Mass HYSTERECTOMY ovaries still there TUBAL LIGATION [6] Allergies Allergen Reactions Hydrocodone Rash Hydrocodone-Acetaminophen Hives and Unknown Tramadol Rash [7] Family History Problem Relation Name Age of Onset High Blood Pressure Father Diabetes Mother Heart disease Mother Diabetes Father Heart disease Father [8] Social History Tobacco Use Smoking status: Every Day Current packs/day: 1.25 Average packs/day: 1.3 packs/day for 41.6 years (52.0 ttl pk-yrs) Types: Cigarettes Start date: 1983 Passive exposure: Past Smokeless tobacco: Never Tobacco comments: Started at 13, 0.5- 2 PPD, quit during her three pregnancies and one additional quit attempt of 6 months, currently 0.5 PPD. 10/04/24 Vaping Use Vaping status: Some Days Substances: THC, CBD Substance Use Topics Alcohol use: Not Currently Drug use: Yes Types: Marijuana Comment: daily CARE PROGRESSION NOTE Return call from Dr. Pena, hepatobiliary surgeon from [facility]. Discussed testing completed. Stated no need for transfer but would follow as outpatient. Stated his nurse would call pt this week to discuss treatment plan, including office appointment next week. Requested CT chest be completed prior to discharge. Information shared with . This patient was seen as a hospital courtesy for improved patient care and care progression at the request of Dr. Gillespie. Thank you for allowing me to participate in the medical care of your patient. NELY INTERVENTIONS [] Care Coordination & Progression [] Nursing Function [] Orders Placed [] Symptom Assessment [] Patient Experience [] Patient / Caregiver Conversation Department of Internal Medicine Division of Endocrinology, Diabetes, & Metabolism Endocrinology Note Patient Name: Puja Wyman : 1970 AGE: 54 y.o. Room/Bed: [facility] A Admission Date: 10/15/2024 Visit Date: 10/22/2024 Reason for Endocrine Consult: DKA, IDDM, Hyperglycemia Provider/Team Requesting Consult: Dr. Rivera PCP: Donna Kumar DO Outpt Vacuum Cleaner Repairer: No ASSESSMENT: DKA Insulin Dependent Diabetes Mellitus Pancreatic cancer status post EUS with FNA positive for adenocarcinoma Pancreatic Mass Abdominal pain Tachycardia Constipation PLAN: Continue Lantus 22 units nightly Continue Humalog 12 units TID Continue Humalog to low dose sliding scale TID Counseled patient to take insulin regularly. - Set timers to help with regularity or insulin Pt was counseled that diet and exercise are the foundation of DM treatment. If these 2 areas are not optimized then the pt will likely require more medications or higher doses to achieve control. Patient counseled on risk of complications associated with uncontrolled Diabetes Patient counseled on BS targets and A1C target. Patient counseled on importance of diet, including eating 3 meals a day with consistent carbohydrate and protein Patient counseled on importance of checking BS regularly. Patient is interested in CGM for discharge ICU goal <180 GMF goal <150 POCT BG ACHS Hypoglycemia management per protocol Carb controlled diet ANTICIPATED ENDOCRINE HOME GOING RECOMMENDATIONS: Optimized for Discharge from Endocrine standpoint: Yes Home Going Endocrine Rx Recommendations-- Lantus - Current dose on day of discharge Humalog - Current dose on day of discharge Patient to start Meka 3. Will need prescription for Meka 3 upon discharge. Reports she has insulin and all other supplies for discharge. Outpt Follow Up-- TBD SUBJECTIVE/HPI: CHIEF COMPLAINT: Chief Complaint Patient presents with Dysphagia Pt states that she has been having diffuculty swallowing due to pain for the last 3-4 months. Pt states that she was diagnosed with pancreatic cancer about 1 week ago. Reports her doctor is aware of this problem but she is unaware of whether a work up was done for that or not. Puja Wyman is a 54 yo female who presented to ED with abdominal pain, epigastric pain. Patient was diagnosed with Pancreatic cancer 1 week ago. Patient is presently on insulin and reports taking insulin but blood sugars still remain uncontrolled prior to admission. Reports she was taking insulin even if she wasn't eating but blood sugars were still elevated. Type of DM: 2 Onset of DM: 5 years ago Home DM Medication Regimen: Lantus 30 units BID AC Humalog 10 units TID AC DM control (last A1c/glucose data): Lab Results Component Value Date HGBA1C 13.5 (H) 10/15/2024 Interval history 10/22/2024 Bgls reviewed and listed below- Patient alert and oriented sitting up in bed Patient is inconsistent with insulin at home. Counseled patient on need to be consistent with insulin doses. Patient reports abdominal pain, flank pain. Meka sensor started on left arm, Nely started on phone inpatient. Glucose Date/Time Value Ref Range Status 10/22/2024 11:54 AM 313 (H) 70 - 100 mg/dL Final 10/22/2024 07:23 AM 206 (H) 70 - 100 mg/dL Final 10/21/2024 07:32 PM 172 (H) 70 - 100 mg/dL Final 10/21/2024 06:58 PM 124 (H) 70 - 100 mg/dL Final 10/21/2024 04:41 PM 85 70 - 100 mg/dL Final 10/21/2024 11:16 AM 280 (H) 70 - 100 mg/dL Final Complications: Cardiovascular -- No Statin Use -- No Nephropathy -- No AJAY/ARB Use -- No Obesity -- No Other -- Yes Pancreatic Mass Family history of dm: Both parents Hospitalized for DM: yes when initially diagnosed Home diet: Appetite reduced with fatigue in past week. Breakfast - Usually skips. Weekends - [employer] full breakfast Lunch - Not eating regularly Dinner - minimal intake recently Home exercise: NA Complications: Pancreatic mass Previously used medications: Steglatro 5 mg daily Glimepiride 4 mg daily Ozempic Farxiga Review of Systems Constitutional: Positive for fatigue. Respiratory: Negative for shortness of breath. Cardiovascular: Negative for chest pain. Gastrointestinal: Positive for abdominal pain and constipation. Neurological: Positive for weakness. ROS negative except for those mentioned in HPI. OBJECTIVE: Vitals: 10/21/24 1931 10/21/24 2347 10/22/24 0323 10/22/24 0727 BP: 131/82 137/88 139/91 133/86 BP Location: Right arm Right arm Right arm Left arm Patient Position: Sitting Sitting Sitting Lying Pulse: 86 76 76 88 Resp: 18 18 18 20 Temp: 36.9 C (98.4 F) 36 C (96.8 F) 36.5 C (97.7 F) 36.4 C (97.6 F) TempSrc: Temporal Temporal Temporal Temporal SpO2: 97% 98% 99% 98% Weight: Height: Physical Exam Vitals reviewed. Constitutional: General: She is not in acute distress. Appearance: Normal appearance. She is not ill-appearing, toxic-appearing or diaphoretic. HENT: Head: Normocephalic and atraumatic. Nose: Nose normal. Mouth/Throat: Mouth: Mucous membranes are moist. Eyes: General: No scleral icterus. Right eye: No discharge. Left eye: No discharge. Conjunctiva/sclera: Conjunctivae normal. Pulmonary: Effort: Pulmonary effort is normal. No respiratory distress. Musculoskeletal: Cervical back: Normal range of motion. Right lower leg: No edema. Left lower leg: No edema. Skin: General: Skin is warm. Neurological: General: No focal deficit present. Mental Status: She is alert and oriented to person, place, and time. Psychiatric: Mood and Affect: Mood normal. Behavior: Behavior normal. 24 hour intake/output: Intake/Output Summary (Last 24 hours) at 10/22/2024 1402 Last data filed at 10/22/2024 0959 Gross per 24 hour Intake 678 ml Output -- Net 678 ml Diet: Adult diet Regular; 5 carb choices (75 gm/meal) Medications (as per EMR): HomeMeds: Current Outpatient Medications Medication Instructions celecoxib (CELEBREX) 100 mg, Oral, 2 times daily cyclobenzaprine (FLEXERIL) 5 mg, 2 times daily PRN gabapentin (NEURONTIN) 400 mg, 3 times daily insulin glargine (LANTUS) 30 Units, SubCUTAneous, 2 times daily, One dose in the morning and one nightly Insulin Lispro (HUMALOG) 10 Units, SubCUTAneous, 3 times daily with meals lisinopril 10 mg, Daily metoprolol tartrate (LOPRESSOR) 25 mg, 2 times daily oxybutynin (DITROPAN) 5 mg, Oral, 3 times daily rOPINIRole (REQUIP) 1 mg, Oral, 1 tablet in AM and 2 tablet nightly venlafaxine (EFFEXOR) 50 mg Scheduled Meds:Scheduled Meds[1] Continuous Infusions:Continuous Meds[2] PRN Meds:PRN Meds[3] Diagnostic Workup: I reviewed pertinent Laboratory results, Radiographic results, and Other Clinical Notes at the time of today's encounter. Labs: No components found for: LABA1C No components found for: EAG Lab Results Component Value Date NA 138 10/22/2024 K 4.1 10/22/2024 CL 104 10/22/2024 CO2 27 10/22/2024 BUN 14 10/22/2024 CREATININE 0.71 10/22/2024 GLUCOSE 206 (H) 10/22/2024 CALCIUM 9.2 10/22/2024 No results found for: CHLPL, CHOL No results found for: TRIG No results found for: HDL No results found for: LDLCALC No results found for: VLDL No results found for: CHOLHDLRATIO No results found for: [id number] No results found for: TSH, H6YGBUH, W3TNFMB, THYROIDAB Radiology reportsas per the Radiologist Radiology: POCT glucose meter Result Date: 10/16/2024 Performed by: Megan Paige [address] [place] [id number] CLIA ID: [id number] POCT glucose meter Result Date: 10/16/2024 Performed by: Megan Paige [address] [place] [id number] CLIA ID: [id number] ECG 12 lead Sinus rhythm Compared to ECG 10/02/24 No significant change Electronically Signed On 10-16-2024 05:43:53 EDT by Ernesto Bacon POCT glucose meter Result Date: 10/16/2024 Performed by: Megan Paige [address] [place] [id number] CLIA ID: [id number] POCT glucose meter Result Date: 10/16/2024 Performed by: Megan Paige [address] [place] [id number] CLIA ID: [id number] CT abdomen pelvis w contrast Result Date: 10/16/2024 [facility]MAN : 1970 [id number] Exam Date/Time: 10/15/2024 23:47 Procedure: CT ABDOMEN PELVIS W CONTRAST Ordering Provider: WILLIAMSON SAMANTHA Reason For Exam: Abdominal pain, acute, nonlocalized; Diffuse epigastric abd pain, hx pancreatic mass, FNA last week, worsening pain CLINICAL INFORMATION: Abdominal pain extending into the pelvis. Recent diagnosis of pancreatic cancer. CT ABDOMEN: 3 mm axial cuts are obtained from the dome of the liver through the iliac crests with 75 mL Isovue IV contrast. Dose reduction was employed with automated exposure control. The examination is compared to a previous study dated 10/02/2024. FINDINGS: A 5.5 cm solid but necrotic-appearing mass is redemonstrated involving the tail of the pancreas. This mildly indents the posterior wall of the stomach. The pancreatic duct is not dilated. The lung bases are included on the examination and demonstrate no focal infiltrates or effusions. The heart size is within normal limits. The liver is essentially homogeneous in its attenuation without focal abnormality. There is no intra or extra hepatic biliary dilatation. The spleen is normal in size. Both adrenal glands are normal. Both kidneys are identified in their cortical phase. Renal cysts are noted bilaterally. The largest measures 2 cm on the right. There is no evidence of hydronephrosis or hydroureter. No free fluid is seen within the abdomen. 1. 5.5 cm solid pancreatic mass. This demonstrates some necrosis. The mass is seen to impress mildly on the posterior wall of the stomach. 2. No hepatic or pancreatic ductal dilatation. 3. Bilateral renal cysts. These require no further imaging. CT PELVIS: 3 mm axial cuts are obtained from the iliac crests through the symphysis pubis with 75 mL Isovue IV contrast. Dose reduction was employed with automated exposure control. The examination is compared to a previous study dated 10/02/2024. FINDINGS: There are nondistended loops of small bowel. Air and stool are identified within the colon to the level of the rectum. There is no evidence of obstruction. The distal ureters and bladder are normal. No free fluid is seen within the pelvis. Sagittal reconstructed images of the spine demonstrate a Grade I/II spondylolisthesis L4 on L5. The slip is approximately 1 cm. The patient is status post L5-S1 fusion. IMPRESSION: 1. 5.5 cm solid pancreatic mass. This demonstrates some necrosis. The mass is seen to impress mildly on the posterior wall of the stomach. 2. No hepatic or pancreatic ductal dilatation. 3. Bilateral renal cysts. These require no further imaging. Report Dictated on Electronically Signed By: Deep Vogel MD Electronically Signed Date/Time: 10/16/2024 12:17 AM EDT History/Other: Past Medical History: Medical History[4] Past Surgical History: Surgical History[5] Allergy(ies): Allergies[6] Family History: Family History[7] Social History: Social History[8] Portions of the information within this encounter were entered using an electronic dictation system. Best attempts were made to edit/proofread the information prior to note completion. Despite the review of information, some errors may remain. If there are questions related to the information contained within the note please contact the signing physician directly. I spent 25 minutes with the pt which involved coordination of care, medical evaluation, review of records, and/or counseling of the pt regarding his/her condition/disease state/prognosis on the date of this note. [1] acetaminophen, 1,000 mg, Oral, TID busPIRone, 10 mg, Oral, BID- 8&2 enoxaparin, 40 mg, SubCUTAneous, Daily gabapentin, 600 mg, Oral, TID insulin glargine, 22 Units, SubCUTAneous, Nightly insulin lispro, 0-6 Units, SubCUTAneous, TID WC insulin lispro, 12 Units, SubCUTAneous, TID WC lisinopril, 10 mg, Oral, Daily lurasidone, 20 mg, Oral, Daily with breakfast metoprolol tartrate, 25 mg, Oral, BID nicotine, 1 patch, TransDERmal, Daily Followed by [START ON 12/01/2024] nicotine, 1 patch, TransDERmal, Daily polyethylene glycol (PEG) 3350, 17 g, Oral, Daily rOPINIRole, 1 mg, Oral, qAM AC rOPINIRole, 2 mg, Oral, Nightly senna-docusate sodium, 2 tablet, Oral, BID trospium, 20 mg, Oral, BID AC [2] [3] PRN medications: bisacodyl, cyclobenzaprine, dextrose, dextrose, glucagon (rDNA), glucose, hydrALAZINE, naloxone, ondansetron ODT OR ondansetron, oxyCODONE AND oxyCODONE, simethicone [4] Past Medical History: Diagnosis Date Anxiety Arthritis COPD (chronic obstructive pulmonary disease) (HCC) Diabetes mellitus (HCC) Headache Hypertension Mitral valve prolapse Neuropathy Non morbid obesity due to excess calories 08/04/2016 Pancreatic abnormality 10/03/2024 Mass; FNA via EUS Reactive depression 08/04/2016 Restless leg syndrome S/P fine needle aspiration 10/03/2024 ENDOSCOPIC ULTRASOUND EXAMINATION Gege Hawkins MD at [facility]; FNA Pancreatic Tail Mass Sleep apnea Tobacco abuse 08/04/2016 [5] Past Surgical History: Procedure Laterality Date ARM SURGERY (HISTORICAL) BACK SURGERY CYST REMOVAL ESOPHAGOSCOPY / EGD N/A 10/03/2024 ESOPHAGOGASTRODUODENOSCOPY, WITH ENDOSCOPIC ULTRASOUND EXAMINATION Gege Hawkins MD at [facility]; FNA Pancreatic Tail Mass EUS (HISTORICAL) N/A 10/03/2024 ESOPHAGOGASTRODUODENOSCOPY, WITH ENDOSCOPIC ULTRASOUND EXAMINATION Gege Hawkins MD at [facility]; FNA Pancreatic Tail Mass HYSTERECTOMY ovaries still there TUBAL LIGATION [6] Allergies Allergen Reactions Hydrocodone Rash Hydrocodone-Acetaminophen Hives and Unknown Tramadol Rash [7] Family History Problem Relation Name Age of Onset High Blood Pressure Father Diabetes Mother Heart disease Mother Diabetes Father Heart disease Father [8] Social History Tobacco Use Smoking status: Every Day Current packs/day: 1.25 Average packs/day: 1.3 packs/day for 41.6 years (52.0 ttl pk-yrs) Types: Cigarettes Start date: 1983 Passive exposure: Past Smokeless tobacco: Never Tobacco comments: Started at 13, 0.5- 2 PPD, quit during her three pregnancies and one additional quit attempt of 6 months, currently 0.5 PPD. 10/04/24 Vaping Use Vaping status: Some Days Substances: THC, CBD Substance Use Topics Alcohol use: Not Currently Drug use: Yes Types: Marijuana Comment: daily Hospitalist Progress Note 10/22/2024 Subjective: Admit Date: 10/15/2024 PCP: Donna Kumar DO Room#: B2-268/B2-268 A Interval History: Abdominal pain is better. Tolerating diet. No n/v, cp, sob, cough, f/c. Case and plan discussed with patient and family at bedside. Discussed with Maryanne Stewart APRN, on several occasions who is assisting with potential transfer to [facility] for continued work up and care. All questions answered. Adult diet Regular; 5 carb choices (75 gm/meal) 24HR INTAKE/OUTPUT: Intake/Output Summary (Last 24 hours) at 10/22/2024 1218 Last data filed at 10/22/2024 0959 Gross per 24 hour Intake 678 ml Output -- Net 678 ml Past Medical History: Medical History[1] LABS: CBC: Recent Labs 10/20/24 01510/21/2425710/22/24215 WBC 8.4 9.4 8.2 RBC 4.23 4.35 4.23 HGB 11.6* 12.1 11.8 HCT 36.5 37.2 36.4 MCV 86.3 85.5 86.1 RDW 13.4 13.2 13.4 PLT 293 314 333 BMP: Recent Labs 10/20/24 0154 10/21/248 10/22/24215 NA 135* 134* 138 K 4.4 4.0 4.1 CL 100 100 104 CO2 23 26 27 BUN 19 11 14 CREATININE 0.87 0.70 0.71 GLUCOSE 297* 296* 206* CALCIUM 9.2 9.2 9.2 ANIONGAP 12 8 7 LIVER PROFILE: Recent Labs 10/22/24215 AST 19 ALT 10 BILITOT 0.2 ALKPHOS 96 PROT 6.1* PT/INR: No results for input(s): PROTIME, INR in the last 72 hours. CARDIAC ENZYMES: No results for input(s): TROPONINI in the last 72 hours. Procalcitonin: No results found for: PROCAL COVID-19 PCR: No results for input(s): COVID19 in the last 72 hours. Objective: Vitals: BP 133/86 (BP Location: Left arm, Patient Position: Lying) Pulse 88 Temp 36.4 C (97.6 F) (Temporal) Resp 20 Ht 5' 2 (1.575 m) Wt 118 lb (53.5 kg) SpO2 98% BMI 21.58 kg/m Pulse Ox: SpO2 Av.4 % Min: 97 % Max: 100 % Supplemental O2: Physical Exam Vitals and nursing note reviewed. Constitutional: General: She is not in acute distress. Appearance: She is ill-appearing. HENT: Head: Normocephalic. Mouth/Throat: Mouth: Mucous membranes are dry. Eyes: Pupils: Pupils are equal, round, and reactive to light. Cardiovascular: Rate and Rhythm: Normal rate and regular rhythm. Pulses: Normal pulses. Heart sounds: Murmur heard. Pulmonary: Effort: Pulmonary effort is normal. Breath sounds: Normal breath sounds. Abdominal: General: Bowel sounds are normal. There is no distension. Palpations: Abdomen is soft. Tenderness: There is abdominal tenderness. Musculoskeletal: Cervical back: Normal range of motion. Right lower leg: No edema. Left lower leg: No edema. Skin: General: Skin is warm. Capillary Refill: Capillary refill takes less than 2 seconds. Neurological: General: No focal deficit present. Mental Status: She is alert and oriented to person, place, and time. Mental status is at baseline. Psychiatric: Mood and Affect: Mood normal. Medications: Scheduled PRN Scheduled Meds[2] PRN Meds[3] Continuous Continuous Meds[4] Assessment Abdominal pain and nausea Pancreatic cancer DKA DM with hyperglycemia HTN Hypokalemia Anemia BPD Neuropathy Hyperlipidemia RLS Severe malnutrition Plan Palliative Care and Endocrinology and Psychiatry are following, Hem/Onc has seen and recommends transfer to [facility]-arrangements being made with transfer center, continue to adjust pain control, POCT, SS insulin, follow up labs, follow up labs, discharge planning, see orders. Addendum: after discussion with Dr Pena at [facility] (via Airam Stewart), plan will be to get CT chest and discharge home with close follow up next week at [facility] with him and Hem/Onc as outpatient. See orders - am labs, replace lytes prn - PT/OT/CM/SW - delirium precautions: increase activity - DVT prophylaxis: enoxaparin and encourage ambulation Advance Directive: Full Code Anticipated Discharge - Date - 10/23 - Location - Home vs another acute facility - Pending the following - clinical stability, completion of work up and when OK with consultants Total time spent (which include face to face and non face to face encounters) : 46 minutes Toxic drug monitoring/narrow therapeutic index drug monitoring : # Drug name : SS insulin and lovenox # Route administered : subcutaneous and subcutaneous # Method of monitoring : ac/hs blood glucose/daily BMP/hypoglycemia protocol and daily CBC Extended Emergency Contact Information Primary Emergency Contact: dana fernandez Relation: Daughter Xi Gillespie MD Division of Hospitalist Medicine [facility] [1] Past Medical History: Diagnosis Date Anxiety Arthritis COPD (chronic obstructive pulmonary disease) (HCC) Diabetes mellitus (HCC) Headache Hypertension Mitral valve prolapse Neuropathy Non morbid obesity due to excess calories 08/04/2016 Pancreatic abnormality 10/03/2024 Mass; FNA via EUS Reactive depression 08/04/2016 Restless leg syndrome S/P fine needle aspiration 10/03/2024 ENDOSCOPIC ULTRASOUND EXAMINATION Gege Hawkins MD at [facility]; FNA Pancreatic Tail Mass Sleep apnea Tobacco abuse 08/04/2016 [2] acetaminophen, 1,000 mg, Oral, TID busPIRone, 5 mg, Oral, BID enoxaparin, 40 mg, SubCUTAneous, Daily gabapentin, 600 mg, Oral, TID insulin glargine, 22 Units, SubCUTAneous, Nightly insulin lispro, 0-12 Units, SubCUTAneous, TID WC insulin lispro, 4 Units, SubCUTAneous, TID WC lisinopril, 10 mg, Oral, Daily lurasidone, 20 mg, Oral, Daily with breakfast metoprolol tartrate, 25 mg, Oral, BID nicotine, 1 patch, TransDERmal, Daily Followed by [START ON 12/01/2024] nicotine, 1 patch, TransDERmal, Daily polyethylene glycol (PEG) 3350, 17 g, Oral, Daily rOPINIRole, 1 mg, Oral, qAM AC rOPINIRole, 2 mg, Oral, Nightly senna-docusate sodium, 2 tablet, Oral, BID trospium, 20 mg, Oral, BID AC [3] PRN medications: bisacodyl, cyclobenzaprine, dextrose, dextrose, glucagon (rDNA), glucose, hydrALAZINE, naloxone, ondansetron ODT OR ondansetron, oxyCODONE AND oxyCODONE, simethicone [4] Images from the original note were not included. Palliative Care Progress Note Chief Complaint: Puja Wyman is a 54 y.o. female with chief complaint of Dysphagia. Palliative Care is actively following. Assessment/Plan Goals of care Puja Wyman retains capacity for medical decision-making - patient's legal surrogate decision makers are at this time are her 2 daughters - patient wants to complete HCPOA with her brother Garrison Escobedo([phone]) as her HCPOA and her daughter Dana Fernandez([phone]) as alternate agent - called patient's brother Wes twice from her room today, no answer - also called daughter Dana and left HIPAA complaint message for call back - Code status remains Full Code - will continue to have ongoing goals of care conversations with patient, family Bipolar Disorder/HELENA - patient's mood better today - patient on Latuda 20 mg daily, Buspar 5 mg BID Pain - likely due to combination of patient's chronic pain along with pain from cancer - patient with total pain picture with anxiety playing a big part in her pain - requested Psychiatry and palliative trolley cleaner for visit on 10/21 - increased oxycodone dose to 10 mg po every 4 hrs prn on 10/21 from 5 mg, increased gabapentin to 600 mg TID, scheduled tylenol 1000 mg TID - patient today stated that her pain is much better controlled - stated having BM also helped a lot - at this time will continue with above regimen for pain control - patient lives at [facility], will have her PCP send referral to palliative care on her area - will continue to monitor patient's pain closely and adjust his medications as needed Constipation - resolved - patient had BM X 3 in last 24 hrs Adenocarcinoma of the pancreas - patient has a pancreatic mass noted on CT 10/02/2024 - biopsy was postive for malignant adenocarcinoma, no distant metastasis - patient seen by Dr. Jha from Oncology on 10/21, per his notes as per surgical team note on 10/04/2024, recommended referral to tertiary care center for hepatobiliary surgical services as [facility] currently does not have a service available - per Dr. Jha's notes it may be reasonable to directly transfer patient to [facility] for further assessment - appreciate [employer]CLARENCE Stewart helping with transfer to [facility] - Dr. Pena( hepatobiliary surgeon) from [facility] called back, advised outpatient visit Dysphagia - recommend consulting [facility] Severe PCM - patient is hospice appropriate Restless leg syndrome - on Ropinrole 0.4 mg TID Palliative Care Encounter -Code Status: Full Code - assessed patient or surrogate's understanding of medical condition, addressed goals of care pertinent to the condition and communicated this to the medical team PC Time Stamp: Total of 85 minutes spent on this encounter including Chart review, Patient visit and exam, Documentation in EHR, Care coordination, and Communicating with primary attending or other consultants. Discharge planning: Not ready for discharge due to ongoing medical work-up/critical illness Patient meets criteria for general inpatient hospice care: No Palliative Care IDT members involved: None Discussed the plan of care with the other interdisciplinary team (IDT) members of the Palliative Care and Hospice teams and Patient. Subjective: Subjective/Events Puja Wyman is a 54 y.o. female with pmh significant for pancreatic adenocarcinoma, constipation, bipolar disorder, restless leg syndrom, HTN, peripheral neuropathy, chronic back pain, anxirty who presented to the ED on 10/15 with chief complaint of dysphagia and abdominal pain. Patient seen and examined this morning. Patient was calm, quiet when seen this am. Patient was lying on bed. Patient stated her pain has been much better controlled after Oxycodone dose was increased yesterday and she had bowel movements. Patient had BM X 3 in last 24 hr. Patient denied nausea. Palliative Care Assessments: Goals of care: Continue Current Management, Cure, utilize all available medical therapies necessary, Improve or Maintain Function/Quality of Life, and Improve uncontrolled symptoms Advanced Directives: are complete, but not given to hospital yet. 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 [place] Symptom Assessment Score [place] Score Pain Score (if non-verbal, add .FLACC below) 4 Tiredness Score 7 Nausea Score 0 Depression Score 2 Anxiety Score 0 Drowsiness Score 0 Anorexia Score (0= eating well, 10= not eating) 6 Wellbeing Score (10= worst sense of well-being) 8 Constipation 0 Dyspnea Score (0= no shortness of breath) 0 Family Meeting: Participants: patient Family meeting was held to discuss: Symptom management Objective: BP 133/86 (BP Location: Left arm, Patient Position: Lying) Pulse 88 Temp 36.4 C (97.6 F) (Temporal) Resp 20 Ht 5' 2 (1.575 m) Wt 118 lb (53.5 kg) SpO2 98% BMI 21.58 kg/m Appearance: ill looking Eyes: clear conjunctiva, PERRL, pupils normal size ENT: hearing normal, MMM without oral thrush, no erythema or exudate on hard or soft palate, tongue normal Neck: supple, no LAD, no thyromegaly Respiratory: breathing unlabored, lungs CTA B anteriorly without w/r/r Cardiovascular: heart RRR without m/g/r, pedal pulses palpable Gastrointestinal: abdomen soft, non-tender, non-distended, normoactive bowel sounds. No masses or hernia. Musculoskeletal: normal digits and nails without cyanosis or clubbing, normal muscle strength and tone, no edema of BL LE Skin: warm and dry, no rash or wounds Neurologic: AxOX3, Weakness present Psychiatric: Calm Medication information: 24-hour PRN meds received: Oxycodone Oxycodone 10 mg po X 5 Results/Verification of Data Review Objective data reviewed (must include dates reviewed for labs, imaging reports and other specialty notes): labs, imaging, MAR, Vitals reviewed 10/22/24 Data in Support of Terminal Illness: Is patient hospice appropriate? TBD Maggie Rosado MD Nutrition Assessment Type and Reason for Visit: Reassess (recent dx pancreatic ca) Nutrition Recommendations/Plan: Suggest to continue Adult diet Regular; 5 carb choices (75 gm/meal) . per MNT protocol , will discontinue Glucerna and trial Ensure Max protein ( 150 soto, 30 gm pro/serving) once daily. Please document PO intakes-diet and ONS- consistently in the flowsheet to better assess intake adequacy. Psych following - medications adjusted Monitor labs, status, intakes to reassess. Malnutrition Assessment: Malnutrition Status: Severe malnutrition Context: Chronic Illness Findings of the 6 clinical characteristics of malnutrition: Energy Intake: 75% or less estimated energy requirements for 1 month or longer Weight Loss: Mild weight loss (specify amount and time period) (-6.1% weight loss x5 months) Body Fat Loss: Mild body fat loss (MODERATE) Buccal region, Triceps, Orbital Muscle Mass Loss: Severe muscle mass loss Temples (temporalis), Clavicles (pectoralis & deltoids), Thigh (quadraceps) Fluid Accumulation: No significant fluid accumulation Hospital Monitor Strength: Measurable reduction in fittings tightener strength Nutrition Assessment: per MD-BRIEF HOSPITAL COURSE: 54-year-old patient with past medical history of anxiety depression, HTN, pancreatic abnormality status post FNA via EUS 10/03 (CA 19-9, CEA all abn), RLS, sleep apnea, tobacco use who presented 10/15 with complaints of abdominal pain found to be in DKA. While hospitalized endocrine was following and treating his DKA which has since resolved, palliative care was consulted for complaints of dysphagia and to get his goals of care, psychiatry consulted for patient's psychiatric medical conditions. No oncology consult seen (STILL CONSULTED, follow up 10/21), pt states plan was to follow up at [facility]. 10/19 a lot of gas and headache, medications adjusted 10/20 encouraging better eating habits. Spent time wth patient and fam discussing next steps. Oncology has yet to see pt. Interval History: Labs and vitals reviewed this morning, continues to be stable but blood glucose continues to increase 417 this morning. Endo is following and has been adjusting her insulin.no major complaints today, just wondering plan for after dispo. No oncology notes noted this admission, states that she does have somebody's card and she is to follow-up outpatient. Plan is for her to go to [place] for follow-up. Of note she was eating a frosty that her family brought in.Assessment-Acute, acute on chronic, unstable/uncontrolled chronic problems/diagnoses: Intractable abdominal pain, nausea and vomiting due to gastroparesis Gastroparesis DKA due to pancreatic abnormality and type 2 diabetes Persistent hyperglycemia Pancreatic cancer status post EUS with FNA positive for adenocarcinoma Constipation Headache Stable chronic problems affecting care, new non-acute diagnoses: Anxiety Depression Bipolar disorder Chronic pain syndrome RLS HTN HLD Neuropathy Estimated Daily Nutrient Needs: Energy Requirements Based On: Kcal/kg Weight Used for Energy Requirements: [place] Weight for Energy Calculation (kg): 50 kg Total Energy Requirements (kcals/day): 3836-4253 (27-32 kcal/kg IBW) Weight Used for Protein Requirements: [place] Weight in Kg Used for Protein Requirements: 50 kg Estimated Total Protein (g/day): 60-75 (1.2-1.5 g protein/kg IBW) Estimated Daily Total Fluid (ml/day): per MD Nutrition Related Findings: hbaic 13.5, had small bm today,on buspar, insulin, latuda ,nicoderm ,senokot, rafael 22,no edema, glu 273, na 134,alb 3.4 Wound Type: None Current Nutrition Therapies: Adult diet Regular; 5 carb choices (75 gm/meal) Current Oral Intake Average Meal Intake: 51-75%, 76-100%, 1-25% Average Supplements Intake: 51-75% Anthropometric Measures: Height: 157.5 cm (5' 2) Current Body Weight: 53.5 kg (118 lb) Weight Source: Stated Admission Body Weight: 53.5 kg (118 lb) Usual Body Weight: 57 kg (125 lb 9.6 oz) (per EMR --> 140# 07/24/23; 125.6# 3) % Weight Change (Calculated): -6.1 [place] Body Weight (lbs) (Calculated): 110 lbs [place] Body Weight (Kg) (Calculated): 50 kg % [place] Body Weight (Calculated): 107.3 % BMI (kg/m2) (Calculated): 21.6 Weight Adjustment For: No Adjustment BMI Categories: Normal Weight (BMI 18.5-24.9) Nutrition Diagnosis: Severe malnutrition, In context of chronic illness related to inadequate protein-energy intake, altered GI function, pain as evidenced by poor intake prior to admission, severe muscle loss Inadequate protein-energy intake related to altered GI function as evidenced by lab values, GI abnormality Nutrition Interventions: Nutrition Education/Counseling: Education initiated (desire low sugar ons) Coordination of Nutrition Care: Continue to monitor while inpatient Plan of Care discussed with: patient Goals: Previous Goal Met: Progressing toward Goal(s) Goals: Meet at least 75% of estimated needs, other (specify) Specify Other Goals: will have consistent bm Nutrition Monitoring and Evaluation: Behavioral-Environmental Outcomes: None Identified Food/Nutrient Intake Outcomes: Food and Nutrient Intake, Supplement Intake Physical Signs/Symptoms Outcomes: Biochemical Data, Constipation, GI Status, Nausea or Vomiting, Fluid Status or Edema, Hemodynamic Status Discharge Planning: Continue current diet, Continue Oral Nutrition Supplement Ni Adkins RD Contact: *[phone] or secure chat Hospitalist Progress Note 10/21/2024 Subjective: Admit Date: 10/15/2024 PCP: Donna Kumar DO Room#: B2-268/B2-268 A Interval History: Still with moderate to severe abdominal pain. Some nausea. No emesis. No cp, sob, cough, f/c. Anxious and agitated at times. Case and plan discussed with patient and Palliative Care separately. All questions answered. Adult diet Regular; 5 carb choices (75 gm/meal) Past Medical History: Medical History[1] LABS: CBC: Recent Labs 10/20/24 0154 10/21/24 0258 WBC 8.4 9.4 RBC 4.23 4.35 HGB 11.6* 12.1 HCT 36.5 37.2 MCV 86.3 85.5 RDW 13.4 13.2 PLT 293 314 BMP: Recent Labs 10/20/24 0154 10/21/24 0258 NA 135* 134* K 4.4 4.0 CL 100 100 CO2 23 26 BUN 19 11 CREATININE 0.87 0.70 GLUCOSE 297* 296* CALCIUM 9.2 9.2 ANIONGAP 12 8 PT/INR: No results for input(s): PROTIME, INR in the last 72 hours. CARDIAC ENZYMES: No results for input(s): TROPONINI in the last 72 hours. Procalcitonin: No results found for: PROCAL COVID-19 PCR: No results for input(s): COVID19 in the last 72 hours. Objective: Vitals: BP 133/86 (BP Location: Left arm, Patient Position: Lying) Pulse 88 Temp 36.4 C (97.6 F) (Temporal) Resp 20 Ht 5' 2 (1.575 m) Wt 118 lb (53.5 kg) SpO2 98% BMI 21.58 kg/m Pulse Ox: SpO2 Av.4 % Min: 97 % Max: 100 % Supplemental O2: Physical Exam Vitals and nursing note reviewed. Constitutional: General: She is not in acute distress. Appearance: She is ill-appearing. HENT: Head: Normocephalic and atraumatic. Mouth/Throat: Mouth: Mucous membranes are dry. Eyes: Extraocular Movements: Extraocular movements intact. Conjunctiva/sclera: Conjunctivae normal. Pupils: Pupils are equal, round, and reactive to light. Cardiovascular: Rate and Rhythm: Normal rate and regular rhythm. Pulses: Normal pulses. Heart sounds: Murmur heard. Pulmonary: Effort: Pulmonary effort is normal. Breath sounds: Normal breath sounds. Abdominal: General: Bowel sounds are normal. There is no distension. Palpations: Abdomen is soft. Tenderness: There is abdominal tenderness. There is guarding. There is no rebound. Musculoskeletal: General: Normal range of motion. Cervical back: Neck supple. Right lower leg: No edema. Left lower leg: No edema. Skin: General: Skin is warm and dry. Capillary Refill: Capillary refill takes less than 2 seconds. Neurological: General: No focal deficit present. Mental Status: She is alert and oriented to person, place, and time. Mental status is at baseline. Psychiatric: Mood and Affect: Mood normal. Medications: Scheduled PRN Scheduled Meds[2] PRN Meds[3] Continuous Continuous Meds[4] Assessment Abdominal pain and nausea Pancreatic cancer DKA DM with hyperglycemia HTN Hypokalemia Anemia BPD Neuropathy Hyperlipidemia RLS Severe malnutrition Plan Palliative Care and Endocrinology and Psychiatry are following, Hem/Onc to see, adjust pain control, POCT, SS insulin, follow up labs, may need GS evaluation, may need transfer to tertiary center, follow up labs, discharge planning, see orders. - am labs, replace lytes prn - PT/OT/CM/SW - delirium precautions: increase activity - DVT prophylaxis: enoxaparin and encourage ambulation Advance Directive: Full Code Anticipated Discharge - Date - 10/22-10/24 - Location - Home vs another acute facility - Pending the following - clinical stability, completion of work up and when OK with consultants Total time spent (which include face to face and non face to face encounters) : 48 minutes Toxic drug monitoring/narrow therapeutic index drug monitoring : # Drug name : SS insulin and lovenox # Route administered : subcutaneous and subcutaneous # Method of monitoring : ac/hs blood glucose/daily BMP/hypoglycemia protocol and daily [facility] Contact Information Primary Emergency Contact: dana fernandez Relation: Daughter iX FranciscoMD kandis Division of Hospitalist Medicine [facility] [1] Past Medical History: Diagnosis Date Anxiety Arthritis COPD (chronic obstructive pulmonary disease) (HCC) Diabetes mellitus (HCC) Headache Hypertension Mitral valve prolapse Neuropathy Non morbid obesity due to excess calories 08/04/2016 Pancreatic abnormality 10/03/2024 Mass; FNA via EUS Reactive depression 08/04/2016 Restless leg syndrome S/P fine needle aspiration 10/03/2024 ENDOSCOPIC ULTRASOUND EXAMINATION Gege Hawkins MD at [facility]; FNA Pancreatic Tail Mass Sleep apnea Tobacco abuse 08/04/2016 [2] acetaminophen, 1,000 mg, Oral, TID busPIRone, 5 mg, Oral, BID enoxaparin, 40 mg, SubCUTAneous, Daily gabapentin, 600 mg, Oral, TID insulin glargine, 22 Units, SubCUTAneous, Nightly insulin lispro, 0-12 Units, SubCUTAneous, TID WC insulin lispro, 4 Units, SubCUTAneous, TID WC lisinopril, 10 mg, Oral, Daily lurasidone, 20 mg, Oral, Daily with breakfast metoprolol tartrate, 25 mg, Oral, BID nicotine, 1 patch, TransDERmal, Daily Followed by [START ON 12/01/2024] nicotine, 1 patch, TransDERmal, Daily polyethylene glycol (PEG) 3350, 17 g, Oral, Daily rOPINIRole, 1 mg, Oral, qAM AC rOPINIRole, 2 mg, Oral, Nightly senna-docusate sodium, 2 tablet, Oral, BID trospium, 20 mg, Oral, BID AC [3] PRN medications: bisacodyl, cyclobenzaprine, dextrose, dextrose, glucagon (rDNA), glucose, hydrALAZINE, naloxone, ondansetron ODT OR ondansetron, oxyCODONE AND oxyCODONE, simethicone [4] Images from the original note were not included. Palliative Care Progress Note Chief Complaint: Puja Wyman is a 54 y.o. female with chief complaint of Dysphagia. Palliative Care is actively following. Assessment/Plan Goals of care Full Code Puja Wyman retains capacity for medical decision-making - patient's legal surrogate decision makers are at this time are her 2 daughters - patient wants to complete HCPOA with her brother Garrison Escobedo([phone]) as her HCPOA and her daughter Christine Fernandez([phone]) as alternate agent - patient stated she filled HCPOA paperwork wrong and has requested new copy from clam bed worker - Code status remains Full Code - will continue to have ongoing goals of care conversations with patient, family Bipolar Disorder/HELENA - patient with panic episode when seen this am, was tearful, stated nobody cares for her - provided empathetic listening and emotional support to patient - patient on Latuda 20 mg daily, Buspar 5 mg BID - updated psychiatry team on patient's condition, appreciative the team visiting patient this afternoon - appreciate palliative trolley cleaner Greer visiting patient today Pain - likely due to combination of patient's chronic pain along with pain from cancer - patient with total pain picture with anxiety playing a big part in her pain - patient was complaining intractable abdominal pain this am, imaging did not show bowel obstruction - increased oxycodone dose to 15-10 mg po every 4 hrs prn - increased gabapentin to 600 mg TID - scheduled tylenol 1000 mg TID - will continue to monitor patient's pain closely and adjust his medications as needed Constipation - last bowel movement 2 wks back - will increase senna s to 2 tabs twice daily, will change miralax to 17 gms daily - will give dulcolax suppository x 1 today and continue prn Adenocarcinoma of the pancreas -Patient has a pancreatic mass noted on CT 10/02/2024 -Biopsy was postive for malignant adenocarcinoma Dysphagia - recommend consulting SORT LINE Restless leg syndrome - on Ropinrole 0.4 mg TID Palliative Care Encounter -Code Status: Full Code - assessed patient or surrogate's understanding of medical condition, addressed goals of care pertinent to the condition and communicated this to the medical team PC Time Stamp: Total of 85 minutes spent on this encounter including Chart review, Patient visit and exam, Documentation in EHR, Care coordination, and Communicating with primary attending or other consultants. Discharge planning: Not ready for discharge due to ongoing medical work-up/critical illness Patient meets criteria for general inpatient hospice care: No Palliative Care IDT members involved: None Discussed the plan of care with the other interdisciplinary team (IDT) members of the Palliative Care and Hospice teams and Patient. Subjective: Subjective/Events Puja Wyman is a 54 y.o. female with pmh significant for pancreatic adenocarcinoma, constipation, bipolar disorder, restless leg syndrom, HTN, peripheral neuropathy, chronic back pain, anxirty who presented to the ED on 10/15 with a chief complaint of dysphagia and abdominal pain. Patient seen and examined this morning. Prior to my visit was notified by primary team attending that patient was having increasing anand. Patient was not present in her room, found her in family conference room sobbing. Patient stated that no one cares about her, the staff said she was having bowel obstruction. Patient stated she is having uncontrolled pain in her abdomen, stated Oxycodone is not helping her. Patient stated her last bowel movement was 2 wks back. Palliative Care Assessments: Goals of care: Continue Current Management, Cure, utilize all available medical therapies necessary, Improve or Maintain Function/Quality of Life, and Improve uncontrolled symptoms Advanced Directives: are complete, but not given to hospital yet. 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 [place] Symptom Assessment Score [place] Score Pain Score (if non-verbal, add .FLACC below) 10 Tiredness Score 8 Nausea Score 0 Depression Score 2 Anxiety Score 10 Drowsiness Score 0 Anorexia Score (0= eating well, 10= not eating) 8 Wellbeing Score (10= worst sense of well-being) 8 Constipation 10 Dyspnea Score (0= no shortness of breath) 0 Family Meeting: Participants: patient Family meeting was held to discuss: Symptom management Objective: BP (!) 164/111 (BP Location: Left arm, Patient Position: Lying) Pulse 96 Temp 36.8 C (98.3 F) (Temporal) Resp 16 Ht 5' 2 (1.575 m) Wt 118 lb (53.5 kg) SpO2 90% BMI 21.58 kg/m Appearance: ill looking Eyes: clear conjunctiva, PERRL, pupils normal size ENT: hearing normal, MMM without oral thrush, no erythema or exudate on hard or soft palate, tongue normal Neck: supple, no LAD, no thyromegaly Respiratory: breathing unlabored, lungs CTA B anteriorly without w/r/r Cardiovascular: heart RRR without m/g/r, pedal pulses palpable Gastrointestinal: abdomen soft, non-tender, non-distended, normoactive bowel sounds. No masses or hernia. Musculoskeletal: normal digits and nails without cyanosis or clubbing, normal muscle strength and tone, no edema of BL LE Skin: warm and dry, no rash or wounds Neurologic: AxOX3, Weakness present Psychiatric: Anxious, tearful Medication information: 24-hour PRN meds received: Oxycodone 5 mg po x 5, Miralax 17 gms x 1, Dulcolax suppository X 1 Results/Verification of Data Review Objective data reviewed (must include dates reviewed for labs, imaging reports and other specialty notes): labs, imaging, MAR, Vitals, OARRS reviewed 10/17/2024 Data in Support of Terminal Illness: Is patient hospice appropriate? TBD Maggie Rosado MD Department of Internal Medicine Division of Endocrinology, Diabetes, & Metabolism Endocrinology Note Patient Name: Puja Wyman : 1970 AGE: 54 y.o. Room/Bed: [facility]/[address] Admission Date: 10/15/2024 Visit Date: 10/21/2024 Reason for Endocrine Consult: DKA, IDDM, Hyperglycemia Provider/Team Requesting Consult: Dr. Rivera PCP: Donna Kumar DO Outpt Vacuum Cleaner Repairer: No ASSESSMENT: DKA Insulin Dependent Diabetes Mellitus Pancreatic cancer status post EUS with FNA positive for adenocarcinoma Pancreatic Mass Abdominal pain Tachycardia Constipation PLAN: Lantus 22 units nightly Increased Humalog 12 units TID with meals but then due to abdominal pain, Patient only having clears for dinner tonight, Decreased humalog to 4 units. Once patient tolerating solid food tomorrow morning, will increase dose Humalog medium dose sliding scale ACHS Counseled patient to take insulin regularly. - Set timers to help with regularity or insulin Pt was counseled that diet and exercise are the foundation of DM treatment. If these 2 areas are not optimized then the pt will likely require more medications or higher doses to achieve control. Patient counseled on risk of complications associated with uncontrolled Diabetes Patient counseled on BS targets and A1C target. Patient counseled on importance of diet, including eating 3 meals a day with consistent carbohydrate and protein Patient counseled on importance of checking BS regularly. Patient is interested in CGM for discharge ICU goal <180 GMF goal <150 POCT BG ACHS Hypoglycemia management per protocol Carb controlled diet ANTICIPATED ENDOCRINE HOME GOING RECOMMENDATIONS: Optimized for Discharge from Endocrine standpoint: Yes Home Going Endocrine Rx Recommendations-- Lantus - Dose to be determined Humalog - Dose to be determined Patient to start Meka 3. Will need prescription for Meka 3 upon discharge. Reports she has insulin and all other supplies for discharge. Outpt Follow Up-- TBD SUBJECTIVE/HPI: CHIEF COMPLAINT: Chief Complaint Patient presents with Dysphagia Pt states that she has been having diffuculty swallowing due to pain for the last 3-4 months. Pt states that she was diagnosed with pancreatic cancer about 1 week ago. Reports her doctor is aware of this problem but she is unaware of whether a work up was done for that or not. Puja Wyman is a 54 yo female who presented to ED with abdominal pain, epigastric pain. Patient was diagnosed with Pancreatic cancer 1 week ago. Patient is presently on insulin and reports taking insulin but blood sugars still remain uncontrolled prior to admission. Reports she was taking insulin even if she wasn't eating but blood sugars were still elevated. Type of DM: 2 Onset of DM: 5 years ago Home DM Medication Regimen: Lantus 30 units BID AC Humalog 10 units TID AC DM control (last A1c/glucose data): Lab Results Component Value Date HGBA1C 13.5 (H) 10/15/2024 Interval history 10/21/2024 Bgls reviewed and listed below- Patient alert and oriented sitting up in bed Patient is inconsistent with insulin at home. Counseled patient on need to be consistent with insulin doses. Patient reports abdominal pain, flank pain. Glucose Date/Time Value Ref Range Status 10/21/2024 06:29 AM 318 (H) 70 - 100 mg/dL Final 10/20/2024 09:25 PM 342 (H) 70 - 100 mg/dL Final 10/20/2024 06:43 PM 239 (H) 70 - 100 mg/dL Final 10/20/2024 04:50 PM 214 (H) 70 - 100 mg/dL Final 10/20/2024 03:37 PM 199 (H) 70 - 100 mg/dL Final 10/20/2024 12:04 PM 228 (H) 70 - 100 mg/dL Final Complications: Cardiovascular -- No Statin Use -- No Nephropathy -- No AJAY/ARB Use -- No Obesity -- No Other -- Yes Pancreatic Mass Family history of dm: Both parents Hospitalized for DM: yes when initially diagnosed Home diet: Appetite reduced with fatigue in past week. Breakfast - Usually skips. Weekends - [employer] full breakfast Lunch - Not eating regularly Dinner - minimal intake recently Home exercise: NA Complications: Pancreatic mass Previously used medications: Steglatro 5 mg daily Glimepiride 4 mg daily Ozempic Farxiga Review of Systems Constitutional: Positive for fatigue. Respiratory: Negative for shortness of breath. Cardiovascular: Negative for chest pain. Gastrointestinal: Positive for abdominal pain and constipation. Neurological: Positive for weakness. ROS negative except for those mentioned in HPI. OBJECTIVE: Vitals: 10/20/24 2302 10/21/24 0300 10/21/24 0625 10/21/24 0806 BP: (!) 172/105 (!) 179/101 (!) 202/120 (!) 164/111 BP Location: Left arm Left arm Left arm Left arm Patient Position: Sitting Sitting Sitting Lying Pulse: 101 83 92 96 Resp: 18 22 18 16 Temp: 36.1 C (96.9 F) 36.6 C (97.8 F) (!) 35.8 C (96.4 F) 36.8 C (98.3 F) TempSrc: Temporal Temporal Temporal Temporal SpO2: 96% 98% 98% 90% Weight: Height: Physical Exam Vitals reviewed. Constitutional: General: She is not in acute distress. Appearance: Normal appearance. She is not ill-appearing, toxic-appearing or diaphoretic. HENT: Head: Normocephalic and atraumatic. Nose: Nose normal. Mouth/Throat: Mouth: Mucous membranes are moist. Eyes: General: No scleral icterus. Right eye: No discharge. Left eye: No discharge. Conjunctiva/sclera: Conjunctivae normal. Cardiovascular: Rate and Rhythm: Normal rate and regular rhythm. Pulses: Normal pulses. Heart sounds: Normal heart sounds. No murmur heard. Pulmonary: Effort: Pulmonary effort is normal. No respiratory distress. Musculoskeletal: Cervical back: Normal range of motion. Right lower leg: No edema. Left lower leg: No edema. Skin: General: Skin is warm. Neurological: General: No focal deficit present. Mental Status: She is alert and oriented to person, place, and time. Psychiatric: Mood and Affect: Mood normal. Behavior: Behavior normal. 24 hour intake/output: Intake/Output Summary (Last 24 hours) at 10/21/2024 0859 Last data filed at 10/21/2024 0410 Gross per 24 hour Intake 620 ml Output -- Net 620 ml Diet: Adult diet Regular; 5 carb choices (75 gm/meal) Medications (as per EMR): HomeMeds: Current Outpatient Medications Medication Instructions celecoxib (CELEBREX) 100 mg, Oral, 2 times daily cyclobenzaprine (FLEXERIL) 5 mg, 2 times daily PRN gabapentin (NEURONTIN) 400 mg, 3 times daily insulin glargine (LANTUS) 30 Units, SubCUTAneous, 2 times daily, One dose in the morning and one nightly Insulin Lispro (HUMALOG) 10 Units, SubCUTAneous, 3 times daily with meals lisinopril 10 mg, Daily metoprolol tartrate (LOPRESSOR) 25 mg, 2 times daily oxybutynin (DITROPAN) 5 mg, Oral, 3 times daily rOPINIRole (REQUIP) 1 mg, Oral, 1 tablet in AM and 2 tablet nightly venlafaxine (EFFEXOR) 50 mg Scheduled Meds:Scheduled Meds[1] Continuous Infusions:Continuous Meds[2] PRN Meds:PRN Meds[3] Diagnostic Workup: I reviewed pertinent Laboratory results, Radiographic results, and Other Clinical Notes at the time of today's encounter. Labs: No components found for: LABA1C No components found for: EAG Lab Results Component Value Date NA 134 (L) 10/21/2024 K 4.0 10/21/2024 CL 100 10/21/2024 CO2 26 10/21/2024 BUN 11 10/21/2024 CREATININE 0.70 10/21/2024 GLUCOSE 296 (H) 10/21/2024 CALCIUM 9.2 10/21/2024 No results found for: CHLPL, CHOL No results found for: TRIG No results found for: HDL No results found for: LDLCALC No results found for: VLDL No results found for: CHOLHDLRATIO No results found for: [id number] No results found for: TSH, C5HTZSY, R5FYLEC, THYROIDAB Radiology reportsas per the Radiologist Radiology: POCT glucose meter Result Date: 10/16/2024 Performed by: Megan Paige [address] [place] [id number] CLIA ID: [id number] POCT glucose meter Result Date: 10/16/2024 Performed by: [facility] [id number] CLIA ID: [id number] ECG 12 lead Sinus rhythm Compared to ECG 10/02/24 No significant change Electronically Signed On 10-16-2024 05:43:53 EDT by Ernesto Bacon POCT glucose meter Result Date: 10/16/2024 Performed by: Megan Paige [address] [place] [id number] CLIA ID: [id number] POCT glucose meter Result Date: 10/16/2024 Performed by: Megan Paige, [facility] [id number] CLIA ID: [id number] CT abdomen pelvis w contrast Result Date: 10/16/2024 [facility]YMAN : 1970 [id number] Exam Date/Time: 10/15/2024 23:47 Procedure: CT ABDOMEN PELVIS W CONTRAST Ordering Provider: WILLIAMSON SAMANTHA Reason For Exam: Abdominal pain, acute, nonlocalized; Diffuse epigastric abd pain, hx pancreatic mass, FNA last week, worsening pain CLINICAL INFORMATION: Abdominal pain extending into the pelvis. Recent diagnosis of pancreatic cancer. CT ABDOMEN: 3 mm axial cuts are obtained from the dome of the liver through the iliac crests with 75 mL Isovue IV contrast. Dose reduction was employed with automated exposure control. The examination is compared to a previous study dated 10/02/2024. FINDINGS: A 5.5 cm solid but necrotic-appearing mass is redemonstrated involving the tail of the pancreas. This mildly indents the posterior wall of the stomach. The pancreatic duct is not dilated. The lung bases are included on the examination and demonstrate no focal infiltrates or effusions. The heart size is within normal limits. The liver is essentially homogeneous in its attenuation without focal abnormality. There is no intra or extra hepatic biliary dilatation. The spleen is normal in size. Both adrenal glands are normal. Both kidneys are identified in their cortical phase. Renal cysts are noted bilaterally. The largest measures 2 cm on the right. There is no evidence of hydronephrosis or hydroureter. No free fluid is seen within the abdomen. 1. 5.5 cm solid pancreatic mass. This demonstrates some necrosis. The mass is seen to impress mildly on the posterior wall of the stomach. 2. No hepatic or pancreatic ductal dilatation. 3. Bilateral renal cysts. These require no further imaging. CT PELVIS: 3 mm axial cuts are obtained from the iliac crests through the symphysis pubis with 75 mL Isovue IV contrast. Dose reduction was employed with automated exposure control. The examination is compared to a previous study dated 10/02/2024. FINDINGS: There are nondistended loops of small bowel. Air and stool are identified within the colon to the level of the rectum. There is no evidence of obstruction. The distal ureters and bladder are normal. No free fluid is seen within the pelvis. Sagittal reconstructed images of the spine demonstrate a Grade I/II spondylolisthesis L4 on L5. The slip is approximately 1 cm. The patient is status post L5-S1 fusion. IMPRESSION: 1. 5.5 cm solid pancreatic mass. This demonstrates some necrosis. The mass is seen to impress mildly on the posterior wall of the stomach. 2. No hepatic or pancreatic ductal dilatation. 3. Bilateral renal cysts. These require no further imaging. Report Dictated on Electronically Signed By: Deep Vogel MD Electronically Signed Date/Time: 10/16/2024 12:17 AM EDT History/Other: Past Medical History: Medical History[4] Past Surgical History: Surgical History[5] Allergy(ies): Allergies[6] Family History: Family History[7] Social History: Social History[8] Portions of the information within this encounter were entered using an electronic dictation system. Best attempts were made to edit/proofread the information prior to note completion. Despite the review of information, some errors may remain. If there are questions related to the information contained within the note please contact the signing physician directly. I spent 35 minutes with the pt which involved coordination of care, medical evaluation, review of records, and/or counseling of the pt regarding his/her condition/disease state/prognosis on the date of this note. [1] busPIRone, 5 mg, Oral, BID enoxaparin, 40 mg, SubCUTAneous, Daily gabapentin, 400 mg, Oral, TID insulin glargine, 22 Units, SubCUTAneous, Nightly insulin lispro, 0-12 Units, SubCUTAneous, TID WC insulin lispro, 8 Units, SubCUTAneous, TID WC lisinopril, 10 mg, Oral, Daily lurasidone, 20 mg, Oral, Daily with breakfast metoprolol tartrate, 25 mg, Oral, BID nicotine, 1 patch, TransDERmal, Daily Followed by [START ON 12/01/2024] nicotine, 1 patch, TransDERmal, Daily rOPINIRole, 1 mg, Oral, qAM AC rOPINIRole, 2 mg, Oral, Nightly senna-docusate sodium, 1 tablet, Oral, BID trospium, 20 mg, Oral, BID AC [2] [3] PRN medications: acetaminophen OR acetaminophen, bisacodyl, cyclobenzaprine, dextrose, dextrose, glucagon (rDNA), glucose, hydrALAZINE, naloxone, ondansetron ODT OR ondansetron, oxyCODONE, polyethylene glycol (PEG) 3350, simethicone [4] Past Medical History: Diagnosis Date Anxiety Arthritis COPD (chronic obstructive pulmonary disease) (HCC) Diabetes mellitus (HCC) Headache Hypertension Mitral valve prolapse Neuropathy Non morbid obesity due to excess calories 08/04/2016 Pancreatic abnormality 10/03/2024 Mass; FNA via EUS Reactive depression 08/04/2016 Restless leg syndrome S/P fine needle aspiration 10/03/2024 ENDOSCOPIC ULTRASOUND EXAMINATION Gege Hawkins MD at [facility]; FNA Pancreatic Tail Mass Sleep apnea Tobacco abuse 08/04/2016 [5] Past Surgical History: Procedure Laterality Date ARM SURGERY (HISTORICAL) BACK SURGERY CYST REMOVAL ESOPHAGOSCOPY / EGD N/A 10/03/2024 ESOPHAGOGASTRODUODENOSCOPY, WITH ENDOSCOPIC ULTRASOUND EXAMINATION Gege Hawkins MD at [facility]; FNA Pancreatic Tail Mass EUS (HISTORICAL) N/A 10/03/2024 ESOPHAGOGASTRODUODENOSCOPY, WITH ENDOSCOPIC ULTRASOUND EXAMINATION Gege Hawkins MD at [facility]; FNA Pancreatic Tail Mass HYSTERECTOMY ovaries still there TUBAL LIGATION [6] Allergies Allergen Reactions Hydrocodone Rash Hydrocodone-Acetaminophen Hives and Unknown Tramadol Rash [7] Family History Problem Relation Name Age of Onset High Blood Pressure Father Diabetes Mother Heart disease Mother Diabetes Father Heart disease Father [8] Social History Tobacco Use Smoking status: Every Day Current packs/day: 1.25 Average packs/day: 1.3 packs/day for 41.6 years (52.0 ttl pk-yrs) Types: Cigarettes Start date: 1983 Passive exposure: Past Smokeless tobacco: Never Tobacco comments: Started at 13, 0.5- 2 PPD, quit during her three pregnancies and one additional quit attempt of 6 months, currently 0.5 PPD. 10/04/24 Vaping Use Vaping status: Some Days Substances: THC, CBD Substance Use Topics Alcohol use: Not Currently Drug use: Yes Types: Marijuana Comment: daily Reviewed chart remotely. Spoke with patient,. BG this am at [phone] due to she was having trouble sleeping and she had a few cups of tea with regular sugar, discussed artificial sweetener. Continue same doses for now Hospitalist Progress Note 10/20/2024 Subjective: Admit Date: 10/15/2024 PCP: Donna Kumar DO Room#: B2-268/B2-268 A BRIEF HOSPITAL COURSE: 54-year-old patient with past medical history of anxiety depression, HTN, pancreatic abnormality status post FNA via EUS 10/03 (CA 19-9, CEA all abn), RLS, sleep apnea, tobacco use who presented 10/15 with complaints of abdominal pain found to be in DKA. While hospitalized endocrine was following and treating his DKA which has since resolved, palliative care was consulted for complaints of dysphagia and to get his goals of care, psychiatry consulted for patient's psychiatric medical conditions. No oncology consult seen (STILL CONSULTED, follow up 10/21), pt states plan was to follow up at [facility]. 10/19 a lot of gas and headache, medications adjusted 10/20 encouraging better eating habits. Spent time [facility] patient and fam discussing next steps. Oncology has yet to see pt. Interval History: Labs and vitals reviewed this morning, continues to be stable but blood glucose continues to increase 417 this morning. Endo is following and has been adjusting her insulin.no major complaints today, just wondering plan for after dispo. No oncology notes noted this admission, states that she does have somebody's card and she is to follow-up outpatient. Plan is for her to go to [place] for follow-up. Of note she was eating a frosty that her family brought in. Adult diet Regular; 5 carb choices (75 gm/meal) 24HR INTAKE/OUTPUT: Intake/Output Summary (Last 24 hours) at 10/20/2024 0855 Last data filed at 10/19/2024 1116 Gross per 24 hour Intake 120 ml Output -- Net 120 ml Past Medical History: Medical History[1] LABS: CBC: Recent Labs 10/18/24 0340 10/19/24 0322 10/20/24 0154 WBC 9.6 9.9 8.4 RBC 4.10 4.34 4.23 HGB 11.5* 12.0 11.6* HCT 34.3* 36.7 36.5 MCV 83.7 84.6 86.3 RDW 13.0 13.3 13.4 PLT 287 291 293 BMP: Recent Labs 10/18/24 03410/19/24 0322 10/20/24 0154 NA 133* 135* 135* K 3.7 3.4* 4.4 CL 102 102 100 CO2 23 23 23 BUN 11 10 19 CREATININE 0.66 0.63 0.87 GLUCOSE 289* 277* 297* CALCIUM 8.5 8.4 9.2 ANIONGAP 8 10 12 LIVER PROFILE:No results for input(s): AST, ALT, BILITOT, ALKPHOS, PROT in the last 72 hours. No lab exists for component: LABALBU PT/INR: No results for input(s): PROTIME, INR in the last 72 hours. CARDIAC ENZYMES: No results for input(s): TROPONINI in the last 72 hours. Procalcitonin: No results found for: PROCAL COVID-19 PCR: No results for input(s): COVID19 in the last 72 hours. Objective: Vitals: BP 132/82 (BP Location: Right arm, Patient Position: Lying) Pulse 95 Temp 37.3 C (99.2 F) (Oral) Resp 16 Ht 5' 2 (1.575 m) Wt 118 lb (53.5 kg) SpO2 99% BMI 21.58 kg/m Pulse Ox: SpO2 Av.3 % Min: 95 % Max: 99 % Supplemental O2: Physical Exam Vitals reviewed. Constitutional: General: She is not in acute distress. Appearance: Normal appearance. She is not ill-appearing or toxic-appearing. Comments: Eating a frosty HENT: Head: Normocephalic. Cardiovascular: Rate and Rhythm: Normal rate. Heart sounds: Normal heart sounds. Pulmonary: Effort: Pulmonary effort is normal. No respiratory distress. Breath sounds: Normal breath sounds. Neurological: Mental Status: She is alert. Psychiatric: Mood and Affect: Mood normal. Behavior: Behavior normal. Medications: Scheduled PRN Scheduled Meds[2] PRN Meds[3] Continuous Continuous Meds[4] Assessment Data: (LOW: 2x CAT1 or independent historian MOD: 3x CAT1 or 1x CAT3 EXTENSIVE: 3x CAT1 and 1x CAT3) Acute, acute on chronic, unstable/uncontrolled chronic problems/diagnoses: Intractable abdominal pain, nausea and vomiting due to gastroparesis Gastroparesis DKA due to pancreatic abnormality and type 2 diabetes Persistent hyperglycemia Pancreatic cancer status post EUS with FNA positive for adenocarcinoma Constipation Headache Stable chronic problems affecting care, new non-acute diagnoses: Anxiety Depression Bipolar disorder Chronic pain syndrome RLS HTN HLD Neuropathy Plan As a result of the above findings & factors, the following mgmt was pursued: Intractable abdominal pain, nausea and vomiting due to gastroparesis Gastroparesis DKA due to pancreatic abnormality -Endocrine following and continues to adjust her insulin regimen - 10/19 Lantus 22 units nightly, 8 units lispro 3 times daily with meals, SSI - BG 10/20 AM 417 despite adjustment as above Pancreatic cancer status post EUS with FNA positive for adenocarcinoma - Palliative consulted due to adenocarcinoma diagnosis - Patient remains full code at this time with HPCOA determined as brother and daughter as his alternate agent - plan to follow up in [place] - oncology consult in, follow up if not seen by 10/21 to ensure no recs from them Anxiety Depression Bipolar disorder - Given diagnosis of cancer psychiatry was also reached out to - Currently continued on his Latuda 20 mg with food and BuSpar 5 mg twice daily Constipation Distension and bloating - Patient without BM - Continue with bowel regimen - added gas x for gas Headache - toradol x1 10/19 because patient states oxy not helping - am labs, replace lytes prn - PT/OT/CM/SW - delirium precautions: increase activity - DVT prophylaxis: enoxaparin and encourage ambulation Complexity: Acute illness with systemic symptoms (MOD). Risk: Admission to hospital-level care was considered or occurred (HIGH). Advance Directive: Full Code Anticipated Discharge - Date - medically optimized - Location - Home - Pending the following -improvement of acute medical issue Total time spent (which include face to face and non face to face encounters) : 40 minutes Toxic drug monitoring/narrow therapeutic index drug monitoring : # Drug name : na # Route administered : NA # Method of monitoring : NA Extended Emergency Contact Information Primary Emergency Contact: dana fernandez Relation: Daughter Comment: Please note that portions of the note for this encounter were entered using an speech recognition software and may contain errors related to that system including errors in grammar, punctuation, and spelling, as well as words and phrases that may be inappropriate. Best attempts were made to edit/proofread the information prior to note completion. Despite the review of information, some errors may remain. If there are questions related to the information contained within the note please contact the signing provider for clarification. Hannah Broussard MD Division of Hospitalist Medicine [facility] [1] Past Medical History: Diagnosis Date Anxiety Arthritis COPD (chronic obstructive pulmonary disease) (HCC) Diabetes mellitus (HCC) Headache Hypertension Mitral valve prolapse Neuropathy Non morbid obesity due to excess calories 08/04/2016 Pancreatic abnormality 10/03/2024 Mass; FNA via EUS Reactive depression 08/04/2016 Restless leg syndrome S/P fine needle aspiration 10/03/2024 ENDOSCOPIC ULTRASOUND EXAMINATION Gege Hawkins MD at [facility]; FNA Pancreatic Tail Mass Sleep apnea Tobacco abuse 08/04/2016 [2] busPIRone, 5 mg, Oral, BID enoxaparin, 40 mg, SubCUTAneous, Daily gabapentin, 400 mg, Oral, TID insulin glargine, 22 Units, SubCUTAneous, Nightly insulin lispro, 0-12 Units, SubCUTAneous, TID WC insulin lispro, 8 Units, SubCUTAneous, TID WC lisinopril, 10 mg, Oral, Daily lurasidone, 20 mg, Oral, Daily with breakfast metoprolol tartrate, 25 mg, Oral, BID rOPINIRole, 1 mg, Oral, qAM AC rOPINIRole, 2 mg, Oral, Nightly senna-docusate sodium, 1 tablet, Oral, BID trospium, 20 mg, Oral, BID AC [3] PRN medications: acetaminophen OR acetaminophen, bisacodyl, cyclobenzaprine, dextrose, dextrose, glucagon (rDNA), glucose, hydrALAZINE, naloxone, ondansetron ODT OR ondansetron, oxyCODONE, polyethylene glycol (PEG) 3350, simethicone [4] Reviewed chart remotely. Spoke with patient to clarify Lanmts doses at home. Was taking Lantus 30 units BID but has difficulty eating so limited Humalog. She would like to follow with Endo and would like Meka 3 plus OP. TE sent Increase Lantus to 22 units, ( would not give home doses of Lantus) continue other doses. Please give SS even if patient does not eat--added to order Nicolette Chun MSN,RN,ACNS-BC, CDCES (CDE) Clinical Nurse Specialist-Certified Diabetes Care and Chamber Worker [facility] Hospitalist Progress Note 10/19/2024 Subjective: Admit Date: 10/15/2024 PCP: Donna Kumar DO Room#: [id number] A BRIEF HOSPITAL COURSE: 54-year-old patient with past medical history of anxiety depression, HTN, pancreatic abnormality status post FNA via EUS, RLS, sleep apnea, tobacco use who presented 10/15 with complaints of abdominal pain found to be in DKA. While hospitalized endocrine was following and treating his DKA which has since resolved, palliative care was consulted for complaints of dysphagia and to get his goals of care, psychiatry consulted for patient's psychiatric medical conditions.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 Hypertension Mitral valve prolapse Neuropathy Non morbid obesity due to excess calories 08/04/2016 Pancreatic abnormality 10/03/2024 Mass; FNA via EUS Reactive depression 08/04/2016 Restless leg syndrome S/P fine needle aspiration 10/03/2024 ENDOSCOPIC ULTRASOUND EXAMINATION Gege Hawkins MD at [facility]; FNA Pancreatic Tail Mass Sleep apnea Tobacco abuse 08/04/2016 [5] Past Surgical History: Procedure Laterality Date ARM SURGERY (HISTORICAL) BACK SURGERY CYST REMOVAL ESOPHAGOSCOPY / EGD N/A 10/03/2024 ESOPHAGOGASTRODUODENOSCOPY, WITH ENDOSCOPIC ULTRASOUND EXAMINATION Gege Hawkins MD at [facility]; FNA Pancreatic Tail Mass EUS (HISTORICAL) N/A 10/03/2024 ESOPHAGOGASTRODUODENOSCOPY, WITH ENDOSCOPIC ULTRASOUND EXAMINATION Gege Hawkins MD at [facility]; FNA Pancreatic Tail Mass HYSTERECTOMY ovaries still there TUBAL LIGATION [6] Allergies Allergen Reactions Hydrocodone Rash Hydrocodone-Acetaminophen Hives and Unknown Tramadol Rash [7] Family History Problem Relation Name Age of Onset High Blood Pressure Father Diabetes Mother Heart disease Mother Diabetes Father Heart disease Father [8] Social History Tobacco Use Smoking status: Every Day Current packs/day: 1.25 Average packs/day: 1.3 packs/day for 41.6 years (52.0 ttl pk-yrs) Types: Cigarettes Start date: 1983 Passive exposure: Past Smokeless tobacco: Never Tobacco comments: Started at 13, 0.5- 2 PPD, quit during her three pregnancies and one additional quit attempt of 6 months, currently 0.5 PPD. 10/04/24 Vaping Use Vaping status: Some Days Substances: THC, CBD Substance Use Topics Alcohol use: Not Currently Drug use: Yes Types: Marijuana Comment: daily Electronically signed by Karina Amezcua, 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 [employer] at 10/18/2024 3:52 PM EDT Hospitalist Progress Note 10/17/2024 [phone]: Please page me ([phone]) for patient care issues. [phone]: Please page [facility] night Hospitalist for any issues. Subjective: Admit Date: 10/15/2024 PCP: Donna Kumar DO Room#: B2-268/B2-268 A Interval History: Patient is sitting on the bed, tolerating diet, nausea vomiting improving. Denies any chest pain shortness of breath or palpitations. Adult diet Regular; 5 carb choices (75 gm/meal) @[id number]@ 24HR INTAKE/OUTPUT: Intake/Output Summary (Last 24 hours) at 10/17/20242156 Last data filed at 10/17/2024 0929 Gross per 24 hour Intake 240 ml Output -- Net 240 ml Past Medical History: Medical History[1] LABS: CBC: Recent Labs 10/15/24 2224 10/16/24 0025 10/16/24 0847 10/16/24 0957 10/17/24 0121 WBC 13.0* -- -- -- 10.8* RBC 4.99 -- -- -- 4.30 HGB 13.7 < > 6.7* 13.0 11.9 HCT 41.5 -- -- -- 36.5 MCV 83.2 -- -- -- 84.9 RDW 13.3 -- -- -- 13.1 PLT 363 -- -- -- 313 < > = values in this interval not displayed. BMP: Recent Labs 10/16/24 0435 10/16/24 0957 10/17/24 0121 NA 135* 138 135* K 3.6 3.1* 3.8 CL 106 104 103 CO2 16* 24 21* BUN 14 12 10 CREATININE 0.72 0.63 0.61 GLUCOSE 279* 233* 336* CALCIUM 9.0 8.5 8.3* ANIONGAP 13 10 11 LIVER PROFILE: Recent Labs 10/15/24 2224 AST 14 ALT 12 BILITOT 0.3 ALKPHOS 141 PROT 7.2 PT/INR: No results for input(s): PROTIME, INR in the last 72 hours. CARDIAC ENZYMES: No results for input(s): TROPONINI in the last 72 hours. Procalcitonin: No results found for: PROCAL COVID-19 PCR: No results for input(s): COVID19 in the last 72 hours. Objective: Vitals: BP (!) 170/99 Pulse 97 Temp 36.9 C (98.5 F) (Temporal) Resp 20 Ht 5' 2 (1.575 m) Wt 118 lb (53.5 kg) SpO2 95% BMI 21.58 kg/m Pulse Ox: SpO2 Av.9 % Min: 92 % Max: 100 % Supplemental O2: General appearance: No apparent distress, appears stated age and cooperative with exam HEENT: Normal cephalic, atraumatic without obvious deformity. Pupils equal, round, and reactive to light. Extra ocular muscles intact. Conjunctivae/corneas clear. Neck: Supple, with full range of motion. No jugular venous distention. Trachea midline. No lymphadenopathy. Respiratory: Normal respiratory effort. Clear to auscultation, bilaterally without Rales/Wheezes/Rhonchi. Cardiovascular: Regular rate and rhythm with normal S1/S2 without murmurs, rubs or gallops. Abdomen: Soft, non-tender, non-distended with normal bowel sounds. No rebound or guarding. Musculoskeletal: No clubbing, cyanosis or edema bilaterally. Full range of motion without deformity, +2 peripheral pulses in all extremities. Skin: Skin color, texture, turgor normal. No rashes or lesions. Neurologic: Neurovascularly intact without any focal sensory/motor deficits. Cranial nerves: II-XII intact, grossly non-focal. Medications: Continuous Meds[2] Scheduled Meds[3] Assessment Intractable abdominal pain. Intractable nausea vomiting. DKA. Gastroparesis. Pancreatic cancer-status post EUS with fine-needle biopsy and pathology positive for adenocarcinoma. History of: Depression/anxiety/bipolar. Chronic pain syndrome. Restless leg syndrome. Insulin-dependent diabetes mellitus Hypertension Hyperlipidemia. Neuropathy. Plan: Initially patient was started on DKA lites protocol, DKA resolved. Endocrinology is managing. Abdominal pain nausea vomiting improving-continue symptomatic treatment. Tolerating p.o. diet well. As fine-needle biopsy showing adenocarcinoma of the pancreas-oncology consult placed. Palliative care managing pain medications. Psychiatry consulted-discontinued Effexor and Seroquel, continue Latuda, started on BuSpar. Follow-up CBC BMP ordered. DVT prophylaxis:/Lovenox subcu daily. Disposition: Pending consultants clearance. Possible discharge in next 1 to 2 days. -am labs, replace lytes prn -increase activity -DVT prophylaxis: [] Lovenox [] Heparin [] SCDs [x] Encourage ambulation [] Already on Anticoagulation Advance Directive: Full Code Discharge planning: NATHALIE Rivera MD Division of Hospitalist Medicine Inpatient Medical Services[place] [place]: [phone] [1] Past Medical History: Diagnosis Date Anxiety Arthritis COPD (chronic obstructive pulmonary disease) (HCC) Diabetes mellitus (HCC) Headache Hypertension Mitral valve prolapse Neuropathy Non morbid obesity due to excess calories 08/04/2016 Pancreatic abnormality 10/03/2024 Mass; FNA via EUS Reactive depression 08/04/2016 Restless leg syndrome S/P fine needle aspiration 10/03/2024 ENDOSCOPIC ULTRASOUND EXAMINATION Gege Hawkins MD at [facility]; FNA Pancreatic Tail Mass Sleep apnea Tobacco abuse 08/04/2016 [2] [3] busPIRone, 5 mg, Oral, BID enoxaparin, 40 mg, SubCUTAneous, Daily gabapentin, 400 mg, Oral, TID insulin glargine, 12 Units, SubCUTAneous, Nightly insulin lispro, 0-12 Units, SubCUTAneous, TID WC insulin lispro, 8 Units, SubCUTAneous, TID WC lisinopril, 10 mg, Oral, Daily [START ON 10/18/2024] lurasidone, 20 mg, Oral, Daily with breakfast metoprolol tartrate, 25 mg, Oral, BID rOPINIRole, 0.5 mg, Oral, TID senna-docusate sodium, 1 tablet, Oral, BID trospium, 20 mg, Oral, BID AC Nutrition Assessment Type and Reason for Visit: Positive Nutrition Screen, Initial Nutrition Recommendations/Plan: Continue Regular, 5 carbohydrate choices/75 g CHO per meal diet Encourage patient to participate in room service and order well balanced meals Per MNT protocol, added: Glucerna once daily (+220 kcal, 10 g protein, 240 mL/serving) Please document all oral intake in EMR for most accurate nutrient intake assessment As able, please obtain weekly standing scale weights for most accurate anthropometric data and calculation of macronutrient and fluid needs RDN to continue to monitor weekly: fluid accumulation, weight, skin integrity, trends in lab values, tolerance of PO and ONS, clinical status, discharge planning. Malnutrition Assessment: Malnutrition Status: Severe malnutrition Context: Chronic Illness Findings of the 6 clinical characteristics of malnutrition: Energy Intake: 75% or less estimated energy requirements for 1 month or longer Weight Loss: Mild weight loss (specify amount and time period) (-6.1% weight loss x5 months) Body Fat Loss: Mild body fat loss (MODERATE) Buccal region, Triceps, Orbital Muscle Mass Loss: Severe muscle mass loss Temples (temporalis), Clavicles (pectoralis & deltoids), Thigh (quadraceps) Fluid Accumulation: No significant fluid accumulation Hospital Monitor Strength: Measurable reduction in fittings tightener strength Nutrition Assessment: 54 year old woman with PMHx: anxiety and depression, COPD, DMII(A1C=13.5% 10/15/24) with neuropathy, HTN, RLS. Most recently admitted under observation to [facility] -10/04/[address]. Underwent CT and RI of abdomen which showed a pancreatic mass. S/p EUS and FNA on 10/03 with preliminary cytology suggestive of carcinoma. Discharged home with plans to follow up with GI. She currently presents back to [facility] on evening of 10/15 with painful swallowing (unable to eat or take meds), upper abdominal pain that radiates into bilateral lower back, and intermittent chest pain that began on 10/14. Significant labs on admit: WBC(13), Na+(132), Gap(15), BGL(86), +Urine for glucose and ketones. Imaging on admit showed: 5.5 cm solid pancreatic mass with some necrosis. The mass impressing mildly on the posterior wall of the stomach. No hepatic or pancreatic ductal dilatation. Bilateral renal cysts . Admitted under DKA lite protocol and made NPO. On morning of 10/16 found eating a snack from her bag, refused to stay NPO. Later in the morning with large volume emesis (~1100) which she attributes to not eating . Endocrinology consulted and supporting. Sitting up in bed at time of assessment, shared with RDN that she is unable to eat more than bites at meals, and has been unable to consume a full meal without pain or significant GI discomfort. Describes pain and like my organs are pushing out from my ribs . She also feels this intense discomfort when moving her bowels. She also reports her right foot begin stuck in a flexed position with shooting pain in her leg on occasion. NFPE completed with consent, and agreeable to trying strawberry Glucerna- as she doesn t like the chalky shakes . Estimated Daily Nutrient Needs: Energy Requirements Based On: Kcal/kg Weight Used for Energy Requirements: [place] Weight for Energy Calculation (kg): 50 kg Total Energy Requirements (kcals/day): 5709-0009 (27-32 kcal/kg IBW) Weight Used for Protein Requirements: [place] Weight in Kg Used for Protein Requirements: 50 kg Estimated Total Protein (g/day): 60-75 (1.2-1.5 g protein/kg IBW) Estimated Daily Total Fluid (ml/day): per MD Nutrition Related Findings: A+Ox4. No skin breakdown or edema noted. Rafael score=19. +bm 8/15 with hyperactive BS. Meds: Lovenox, insulin, Neurontin, lisinopril, Lopressor. Labs: BGL(401->243->103->205->277->98-> 217->268), Na+(135), WBC(10.8). Wound Type: None Current Nutrition Therapies: Adult diet Regular; 5 carb choices (75 gm/meal) Current Oral Intake Average Meal Intake: 51-75%, 26-50% (per EMR) Anthropometric Measures: Height: 157.5 cm (5' 2) Current Body Weight: 53.5 kg (118 lb) Weight Source: Stated Admission Body Weight: 53.5 kg (118 lb) Usual Body Weight: 57 kg (125 lb 9.6 oz) (per EMR --> 140# 07/24/23; 125.6# 05/17/24) % Weight Change (Calculated): -6.1 [place] Body Weight (lbs) (Calculated): 110 lbs [place] Body Weight (Kg) (Calculated): 50 kg % [place] Body Weight (Calculated): 107.3 % BMI (kg/m2) (Calculated): 21.6 Weight Adjustment For: No Adjustment BMI Categories: Normal Weight (BMI 18.5-24.9) Nutrition Diagnosis: Severe malnutrition, In context of chronic illness related to inadequate protein-energy intake, altered GI function as evidenced by poor intake prior to admission, severe muscle loss Inadequate protein-energy intake related to altered GI function as evidenced by lab values, GI abnormality Nutrition Interventions: Nutrition Education/Counseling: Education not indicated Coordination of Nutrition Care: Continue to monitor while inpatient Plan of Care discussed with: patient Goals: Goals: Meet at least 75% of estimated needs (~1110 kcal and 51 g protein/day) Nutrition Monitoring and Evaluation: Behavioral-Environmental Outcomes: None Identified Food/Nutrient Intake Outcomes: Food and Nutrient Intake, Supplement Intake Physical Signs/Symptoms Outcomes: Biochemical Data, GI Status, Hemodynamic Status, Meal Time Behavior, Chewing or Swallowing, Weight, Skin, Nausea or Vomiting, Fluid Status or Edema, Nutrition Focused Physical Findings Discharge Planning: Too soon to determine Chari Chamorro RDN, LDN, Contact: *[phone] Department of Internal Medicine Division of Endocrinology, Diabetes, & Metabolism Endocrinology Note Patient Name: Puja Wyman : 1970 AGE: 54 y.o. Room/Bed: [facility]/[address] Admission Date: 10/15/2024 Visit Date: 10/17/2024 Reason for Endocrine Consult: DKA, IDDM, Hyperglycemia Provider/Team Requesting Consult: Dr. Rivera PCP: Donna Kumar DO Outpt Vacuum Cleaner Repairer: No ASSESSMENT: DKA Insulin Dependent Diabetes Mellitus Pancreatic Mass Abdominal pain Tachycardia PLAN: Lantus 12 units nightly Humalog 8 units TID with meals Humalog medium dose sliding scale ACHS ICU goal <180 GMF goal <150 POCT BG ACHS Hypoglycemia management per protocol Carb controlled diet ANTICIPATED ENDOCRINE HOME GOING RECOMMENDATIONS: Optimized for Discharge from Endocrine standpoint: Yes Home Going Endocrine Rx Recommendations-- Lantus - Dose to be determined Humalog - Dose to be determined Outpt Follow Up-- TBD SUBJECTIVE/HPI: CHIEF COMPLAINT: Chief Complaint Patient presents with Dysphagia Pt states that she has been having diffuculty swallowing due to pain for the last 3-4 months. Pt states that she was diagnosed with pancreatic cancer about 1 week ago. Reports her doctor is aware of this problem but she is unaware of whether a work up was done for that or not. Puja Wyman is a 54 yo female who presented to ED with abdominal pain, epigastric pain. Patient was diagnosed with Pancreatic cancer 1 week ago. Patient is presently on insulin and reports taking insulin but blood sugars still remain uncontrolled prior to admission. Reports she was taking insulin even if she wasn't eating but blood sugars were still elevated. Type of DM: 2 Onset of DM: 5 years ago Home DM Medication Regimen: Lantus 30 units BID AC Humalog 10 units TID AC DM control (last A1c/glucose data): Lab Results Component Value Date HGBA1C 13.5 (H) 10/15/2024 Interval history 10/27/2024 Bgls as below Up in room wiping all surfaces of bedside stand, States she is having abd pain and trying to keep busy by moving arpound in room Wants to do her hair Eating well Denies nausea , vomiting Glucose Date/Time Value Ref Range Status 10/17/2024 11:10 AM 265 (H) 70 - 100 mg/dL Final 10/17/2024 07:21 AM 268 (H) 70 - 100 mg/dL Final 10/16/2024 07:37 PM 217 (H) 70 - 100 mg/dL Final 10/16/2024 04:25 PM 98 70 - 100 mg/dL Final 10/16/2024 11:22 AM 277 (H) 70 - 100 mg/dL Final 10/16/2024 09:47 AM 205 (H) 70 - 100 mg/dL Final Complications: Cardiovascular -- No Statin Use -- No Nephropathy -- No AJAY/ARB Use -- No Obesity -- No Other -- Yes Pancreatic Mass Family history of dm: Both parents Hospitalized for DM: yes when initially diagnosed Home diet: Appetite reduced with fatigue in past week. Breakfast - Usually skips. Weekends - [employer] full breakfast Lunch - Not eating regularly Dinner - minimal intake recently Home exercise: NA Complications: Pancreatic mass Previously used medications: Steglatro 5 mg daily Glimepiride 4 mg daily Ozempic Farxiga Review of Systems Constitutional: Positive for fatigue. Respiratory: Negative for shortness of breath. Cardiovascular: Negative for chest pain. Gastrointestinal: Positive for abdominal pain and constipation. Neurological: Positive for weakness. ROS negative except for those mentioned in HPI. OBJECTIVE: Vitals: 10/17/24 0344 10/17/24 0719 10/17/24 0859 10/17/24 1109 BP: 154/86 148/100 139/94 BP Location: Right arm Right arm Right arm Patient Position: Sitting Sitting Lying Pulse: 65 88 81 Resp: Temp: (!) 35.8 C (96.4 F) (!) 35.9 C (96.7 F) 36.4 C (97.5 F) TempSrc: Temporal Temporal Temporal SpO2: 97% 99% 98% Weight: Height: 5' 2 (1.575 m) Physical Exam Vitals reviewed. Constitutional: General: She is not in acute distress. Appearance: Normal appearance. She is not ill-appearing, toxic-appearing or diaphoretic. HENT: Head: Normocephalic and atraumatic. Nose: Nose normal. Mouth/Throat: Mouth: Mucous membranes are moist. Eyes: General: No scleral icterus. Right eye: No discharge. Left eye: No discharge. Conjunctiva/sclera: Conjunctivae normal. Cardiovascular: Rate and Rhythm: Normal rate and regular rhythm. Pulses: Normal pulses. Heart sounds: Normal heart sounds. No murmur heard. Pulmonary: Effort: Pulmonary effort is normal. No respiratory distress. Musculoskeletal: Cervical back: Normal range of motion. Right lower leg: No edema. Left lower leg: No edema. Skin: General: Skin is warm. Neurological: General: No focal deficit present. Mental Status: She is alert and oriented to person, place, and time. Psychiatric: Mood and Affect: Mood normal. Behavior: Behavior normal. 24 hour intake/output: Intake/Output Summary (Last 24 hours) at 10/17/2024 1151 Last data filed at 10/17/2024 0929 Gross per 24 hour Intake 740 ml Output -- Net 740 ml Diet: Adult diet Regular; 5 carb choices (75 gm/meal) Medications (as per EMR): HomeMeds: Current Outpatient Medications Medication Instructions celecoxib (CELEBREX) 100 mg, Oral, 2 times daily cyclobenzaprine (FLEXERIL) 5 mg, 2 times daily PRN gabapentin (NEURONTIN) 400 mg, 3 times daily insulin glargine (LANTUS) 30 Units, SubCUTAneous, 2 times daily, One dose in the morning and one nightly Insulin Lispro (HUMALOG) 10 Units, SubCUTAneous, 3 times daily with meals lisinopril 10 mg, Daily metoprolol tartrate (LOPRESSOR) 25 mg, 2 times daily oxybutynin (DITROPAN) 5 mg, Oral, 3 times daily rOPINIRole (REQUIP) 1 mg, Oral, 1 tablet in AM and 2 tablet nightly venlafaxine (EFFEXOR) 50 mg Scheduled Meds:Scheduled Meds[1] Continuous Infusions:Continuous Meds[2] PRN Meds:PRN Meds[3] Diagnostic Workup: I reviewed pertinent Laboratory results, Radiographic results, and Other Clinical Notes at the time of today's encounter. Labs: No components found for: LABA1C No components found for: EAG Lab Results Component Value Date NA 135 (L) 10/17/2024 K 3.8 10/17/2024 CL 103 10/17/2024 CO2 21 (L) 10/17/2024 BUN 10 10/17/2024 CREATININE 0.61 10/17/2024 GLUCOSE 336 (H) 10/17/2024 CALCIUM 8.3 (L) 10/17/2024 No results found for: CHLPL, CHOL No results found for: TRIG No results found for: HDL No results found for: LDLCALC No results found for: VLDL No results found for: CHOLHDLRATIO No results found for: [id number] No results found for: TSH, C1IGYVG, F3CMFCH, THYROIDAB Radiology reportsas per the Radiologist Radiology: POCT glucose meter Result Date: 10/16/2024 Performed by: Megan Paige [address] [place] [id number] CLIA ID: [id number] POCT glucose meter Result Date: 10/16/2024 Performed by: Megan Paige [address] [place] [id number] CLIA ID: [id number] ECG 12 lead Sinus rhythm Compared to ECG 10/02/24 No significant change Electronically Signed On 10-16-2024 05:43:53 EDT by Ernesto Bacon POCT glucose meter Result Date: 10/16/2024 Performed by: Megan Paige [address] [place] [id number] CLIA ID: [id number] POCT glucose meter Result Date: 10/16/2024 Performed by: Megan Paige [address] [place] [id number] CLIA ID: [id number] CT abdomen pelvis w contrast Result Date: 10/16/2024 Patient Name: PUJA WYMAN : [address] [facility]#: [id number] Exam Date/Time: 10/15/2024 23:47 Procedure: CT ABDOMEN PELVIS W CONTRAST Ordering Provider: WILLIAMSON SAMANTHA Reason For Exam: Abdominal pain, acute, nonlocalized; Diffuse epigastric abd pain, hx pancreatic mass, FNA last week, worsening pain CLINICAL INFORMATION: Abdominal pain extending into the pelvis. Recent diagnosis of pancreatic cancer. CT ABDOMEN: 3 mm axial cuts are obtained from the dome of the liver through the iliac crests with 75 mL Isovue IV contrast. Dose reduction was employed with automated exposure control. The examination is compared to a previous study dated 10/02/2024. FINDINGS: A 5.5 cm solid but necrotic-appearing mass is redemonstrated involving the tail of the pancreas. This mildly indents the posterior wall of the stomach. The pancreatic duct is not dilated. The lung bases are included on the examination and demonstrate no focal infiltrates or effusions. The heart size is within normal limits. The liver is essentially homogeneous in its attenuation without focal abnormality. There is no intra or extra hepatic biliary dilatation. The spleen is normal in size. Both adrenal glands are normal. Both kidneys are identified in their cortical phase. Renal cysts are noted bilaterally. The largest measures 2 cm on the right. There is no evidence of hydronephrosis or hydroureter. No free fluid is seen within the abdomen. 1. 5.5 cm solid pancreatic mass. This demonstrates some necrosis. The mass is seen to impress mildly on the posterior wall of the stomach. 2. No hepatic or pancreatic ductal dilatation. 3. Bilateral renal cysts. These require no further imaging. CT PELVIS: 3 mm axial cuts are obtained from the iliac crests through the symphysis pubis with 75 mL Isovue IV contrast. Dose reduction was employed with automated exposure control. The examination is compared to a previous study dated 10/02/2024. FINDINGS: There are nondistended loops of small bowel. Air and stool are identified within the colon to the level of the rectum. There is no evidence of obstruction. The distal ureters and bladder are normal. No free fluid is seen within the pelvis. Sagittal reconstructed images of the spine demonstrate a Grade I/II spondylolisthesis L4 on L5. The slip is approximately 1 cm. The patient is status post L5-S1 fusion. IMPRESSION: 1. 5.5 cm solid pancreatic mass. This demonstrates some necrosis. The mass is seen to impress mildly on the posterior wall of the stomach. 2. No hepatic or pancreatic ductal dilatation. 3. Bilateral renal cysts. These require no further imaging. Report Dictated on Electronically Signed By: Deep Vogel MD Electronically Signed Date/Time: 10/16/2024 12:17 AM EDT History/Other: Past Medical History: Medical History[4] Past Surgical History: Surgical History[5] Allergy(ies): Allergies[6] Family History: Family History[7] Social History: Social History[8] Portions of the information within this encounter were entered using an electronic dictation system. Best attempts were made to edit/proofread the information prior to note completion. Despite the review of information, some errors may remain. If there are questions related to the information contained within the note please contact the signing physician directly. I spent 35 minutes with the pt which involved coordination of care, medical evaluation, review of records, and/or counseling of the pt regarding his/her condition/disease state/prognosis on the date of this note. [1] enoxaparin, 40 mg, SubCUTAneous, Daily gabapentin, 400 mg, Oral, TID insulin glargine, 10 Units, SubCUTAneous, Nightly insulin lispro, 0-12 Units, SubCUTAneous, TID WC insulin lispro, 8 Units, SubCUTAneous, TID WC lisinopril, 10 mg, Oral, Daily metoprolol tartrate, 25 mg, Oral, BID rOPINIRole, 0.5 mg, Oral, TID trospium, 20 mg, Oral, BID AC venlafaxine, 50 mg, Oral, BID WC [2] [3] PRN medications: acetaminophen OR acetaminophen, cyclobenzaprine, dextrose, dextrose, glucagon (rDNA), glucose, hydrALAZINE, metoclopramide, naloxone, ondansetron ODT OR ondansetron, oxyCODONE [4] Past Medical History: Diagnosis Date Anxiety Arthritis COPD (chronic obstructive pulmonary disease) (HCC) Diabetes mellitus (HCC) Headache Hypertension Mitral valve prolapse Neuropathy Non morbid obesity due to excess calories 08/04/2016 Pancreatic abnormality 10/03/2024 Mass; FNA via EUS Reactive depression 08/04/2016 Restless leg syndrome S/P fine needle aspiration 10/03/2024 ENDOSCOPIC ULTRASOUND EXAMINATION Gege Hawkins MD at [facility]; FNA Pancreatic Tail Mass Sleep apnea Tobacco abuse 08/04/2016 [5] Past Surgical History: Procedure Laterality Date ARM SURGERY (HISTORICAL) BACK SURGERY CYST REMOVAL ESOPHAGOSCOPY / EGD N/A 10/03/2024 ESOPHAGOGASTRODUODENOSCOPY, WITH ENDOSCOPIC ULTRASOUND EXAMINATION Gege Hawkins MD at [facility]; FNA Pancreatic Tail Mass EUS (HISTORICAL) N/A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 states that she does not want to be put on life support intermediate. Patient was asked if she wanted us to call a family member and declined. Pain Assessment Location: abdomen, back Description: tight band Frequency:Daily Duration: year(s) Alleviating Factors: pain medication Exacerbating Factors: unable to associate with any factor Effect:Change in Function, Interference with Activities, Sleep, and Mood Palliative Care Assessments: Goals of care: Continue Current Management, Cure, utilize all available medical therapies necessary, Improve or Maintain Function/Quality of Life, and Improve uncontrolled symptoms Advanced Directives: Patient has a POA and wants to change it to her brother. 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 [place] status: No Sikhism: No restoration on file ROS: See palliative care ROS/ESAS below; All other systems were reviewed and are negative. [place] Symptom Assessment Score [place] Score Pain Score (if non-verbal, add .FLACC below) 9 Tiredness Score 0 Nausea Score 5 Depression Score 5 Anxiety Score 7 Drowsiness Score 0 Anorexia Score (0= eating well, 10= not eating) 8 Wellbeing Score (10= worst sense of well-being) 8 Constipation 10 Dyspnea Score (0= no shortness of breath) 0 Family Meeting: Participants: none held Family meeting was held to discuss:N/A Medical History[1] Surgical History[2] Family History[3] Unable to obtain family history due to N/A- family history available Allergies[4] Objective: BP 148/100 (BP Location: Right arm, Patient Position: Sitting) Pulse 88 Temp (!) 35.9 C (96.7 F) (Temporal) Resp 21 Ht 5' 2 (1.575 m) Wt 118 lb (53.5 kg) SpO2 99% BMI 21.58 kg/m Physical Exam Constitutional: General: She is awake. Appearance: She is not diaphoretic. HENT: Head: Normocephalic and atraumatic. Eyes: General: No scleral icterus. Extraocular Movements: Extraocular movements intact. Conjunctiva/sclera: Conjunctivae normal. Pupils: Pupils are equal, round, and reactive to light. Cardiovascular: Rate and Rhythm: Normal rate and regular rhythm. Pulses: Normal pulses. Heart sounds: Normal heart sounds. Pulmonary: Effort: Pulmonary effort is normal. No respiratory distress. Breath sounds: Normal breath sounds. No stridor. No wheezing, rhonchi or rales. Abdominal: General: Bowel sounds are normal. Palpations: Abdomen is soft. Tenderness: There is generalized abdominal tenderness. There is no guarding or rebound. Musculoskeletal: Right lower leg: No edema. Left lower leg: No edema. Neurological: General: No focal deficit present. Mental Status: She is alert and oriented to person, place, and time. Cranial Nerves: No cranial nerve deficit. Psychiatric: Attention and Perception: Attention normal. Mood and Affect: Mood is elated. Behavior: Behavior is cooperative. Attending Exam: Appearance: no acute distress, ill looking Eyes: clear conjunctiva, PERRL, pupils normal size ENT: hearing normal, MMM without oral thrush, no erythema or exudate on hard or soft palate, tongue normal Neck: supple, no LAD, no thyromegaly Respiratory: breathing unlabored, lungs CTA B anteriorly without w/r/r Cardiovascular: heart RRR without m/g/r, pedal pulses palpable Gastrointestinal: abdomen soft, non-tender, non-distended, normoactive bowel sounds. No masses or hernia. Musculoskeletal: normal digits and nails without cyanosis or clubbing, normal muscle strength and tone, no edema of BL LE Skin: warm and dry, no rash or wounds Neurologic: AxOx3, Weakness present Psychiatric: patient with pressured speech Medication information: 24-hour PRN meds received: Oxycodone 5 mg Hydromorphone 0.5 mg x 2 Ondansetron 4 mg Results/Verification of Data Review Objective data reviewed (must include dates reviewed for labs, imaging reports and other specialty notes): - labs, imaging, MAR, Vitals, OARRS reviewed 10/17/2024 Data in Support of Terminal Illness: Is patient hospice appropriate? TBD Transition Note Initiated: yes Ramsey Truong, MS3 [1] Past Medical History: Diagnosis Date Anxiety Arthritis COPD (chronic obstructive pulmonary disease) (HCC) Diabetes mellitus (HCC) Headache Hypertension Mitral valve prolapse Neuropathy Non morbid obesity due to excess calories 08/04/2016 Pancreatic abnormality 10/03/2024 Mass; FNA via EUS Reactive depression 08/04/2016 Restless leg syndrome S/P fine needle aspiration 10/03/2024 ENDOSCOPIC ULTRASOUND EXAMINATION Gege Hawkins MD at [facility]; FNA Pancreatic Tail Mass Sleep apnea Tobacco abuse 08/04/2016 [2] Past Surgical History: Procedure Laterality Date ARM SURGERY (HISTORICAL) BACK SURGERY CYST REMOVAL ESOPHAGOSCOPY / EGD N/A 10/03/2024 ESOPHAGOGASTRODUODENOSCOPY, WITH ENDOSCOPIC ULTRASOUND EXAMINATION Gege Hawkins MD at [facility]; FNA Pancreatic Tail Mass EUS (HISTORICAL) N/A 10/03/2024 ESOPHAGOGASTRODUODENOSCOPY, WITH ENDOSCOPIC ULTRASOUND EXAMINATION Gege Hawkins MD at [facility]; FNA Pancreatic Tail Mass HYSTERECTOMY ovaries still there TUBAL LIGATION [3] Family History Problem Relation Name Age of Onset High Blood Pressure Father Diabetes Mother Heart disease Mother Diabetes Father Heart disease Father [4] Allergies Allergen Reactions Hydrocodone Rash Hydrocodone-Acetaminophen Hives and Unknown Tramadol Rash Associated Order(s): IP CONSULT TO ENDOCRINOLOGY Department of Internal Medicine Division of Endocrinology, Diabetes, & Metabolism Endocrinology Note Patient Name: Puja Wyman : 1970 AGE: 54 y.o. Room/Bed: B2-243/B2-243 B Admission Date: 10/15/2024 Visit Date: 10/16/2024 Reason for Endocrine Consult: DKA, IDDM, Hyperglycemia Provider/Team Requesting Consult: Dr. Rivera PCP: Donna Kumar, DO Outpt Vacuum Cleaner Repairer: No ASSESSMENT: DKA Insulin Dependent Diabetes Mellitus Pancreatic Mass Abdominal pain Tachycardia PLAN: Anion Gap Closed as of 10/16 at 04:35 BHB: 2.9 Bicarb: 24 Current orders: Humalog 8 units TID with meals Humalog medium dose sliding scale ACHS Lantus 10 units nightly Continue current doses until we identify trends with blood glucose. ICU goal <180 GMF goal <150 POCT BG ACHS Hypoglycemia management per protocol Carb controlled diet ANTICIPATED ENDOCRINE HOME GOING RECOMMENDATIONS: Optimized for Discharge from Endocrine standpoint: No Home Going Endocrine Rx Recommendations-- Lantus - Dose to be determined Humalog - Dose to be determined Outpt Follow Up-- TBD SUBJECTIVE/HPI: CHIEF COMPLAINT: Chief Complaint Patient presents with Dysphagia Pt states that she has been having diffuculty swallowing due to pain for the last 3-4 months. Pt states that she was diagnosed with pancreatic cancer about 1 week ago. Reports her doctor is aware of this problem but she is unaware of whether a work up was done for that or not. Puja Wyman is a 54 yo female who presented to ED with abdominal pain, epigastric pain. Patient was diagnosed with Pancreatic cancer 1 week ago. Patient is presently on insulin and reports taking insulin but blood sugars still remain uncontrolled prior to admission. Reports she was taking insulin even if she wasn't eating but blood sugars were still elevated. Type of DM: 2 Onset of DM: 5 years ago Home DM Medication Regimen: Lantus 30 units BID AC Humalog 10 units TID AC DM control (last A1c/glucose data): Lab Results Component Value Date HGBA1C 13.5 (H) 10/15/2024 Interval history: Patient alert and oriented lying in bed Reports epigastric and abdominal pain RN reports patient vomiting and not eating dinner. - Scheduled insulin held and Endocrinology notified. Reports she was advised to increase doses until blood sugars were controlled. She reports blood sugars were still running in the 200s or higher at home. Glucose Date/Time Value Ref Range Status 10/16/2024 04:25 PM 98 70 - 100 mg/dL Final 10/16/2024 11:22 AM 277 (H) 70 - 100 mg/dL Final 10/16/2024 09:47 AM 205 (H) 70 - 100 mg/dL Final 10/16/2024 06:25 AM 103 (H) 70 - 100 mg/dL Final 10/16/2024 04:33 AM 243 (H) 70 - 100 mg/dL Final 10/16/2024 02:13 AM 401 (H) 70 - 100 mg/dL Final Complications: Cardiovascular -- No Statin Use -- No Nephropathy -- No AJAY/ARB Use -- No Obesity -- No Other -- Yes Pancreatic Mass Family history of dm: Both parents Hospitalized for DM: yes when initially diagnosed Home diet: Appetite reduced with fatigue in past week. Breakfast - Usually skips. Weekends - [employer] full breakfast Lunch - Not eating regularly Dinner - minimal intake recently Home exercise: NA Complications: Pancreatic mass Previously used medications: Steglatro 5 mg daily Glimepiride 4 mg daily Ozempic Farxiga Review of Systems Constitutional: Positive for fatigue. Respiratory: Negative for shortness of breath. Cardiovascular: Negative for chest pain. Gastrointestinal: Positive for abdominal pain and constipation. Neurological: Positive for weakness. ROS negative except for those mentioned in HPI. OBJECTIVE: Vitals: 10/16/24 0027 10/16/24 0142 10/16/24 0646 10/16/24 0829 BP: (!) 146/93 138/88 135/73 BP Location: Left arm Left arm Patient Position: Lying Lying Pulse: 95 93 70 Resp: 16 18 18 Temp: (!) 35.8 C (96.4 F) TempSrc: SpO2: 100% 100% 99% Weight: 118 lb (53.5 kg) Physical Exam Vitals reviewed. Constitutional: General: She is not in acute distress. Appearance: Normal appearance. She is not ill-appearing, toxic-appearing or diaphoretic. HENT: Head: Normocephalic and atraumatic. Nose: Nose normal. Mouth/Throat: Mouth: Mucous membranes are moist. Eyes: General: No scleral icterus. Right eye: No discharge. Left eye: No discharge. Conjunctiva/sclera: Conjunctivae normal. Cardiovascular: Rate and Rhythm: Normal rate and regular rhythm. Pulses: Normal pulses. Heart sounds: Normal heart sounds. No murmur heard. Pulmonary: Effort: Pulmonary effort is normal. No respiratory distress. Musculoskeletal: Cervical back: Normal range of motion. Right lower leg: No edema. Left lower leg: No edema. Skin: General: Skin is warm. Neurological: General: No focal deficit present. Mental Status: She is alert and oriented to person, place, and time. Psychiatric: Mood and Affect: Mood normal. Behavior: Behavior normal. 24 hour intake/output: Intake/Output Summary (Last 24 hours) at 10/16/2024 1107 Last data filed at 10/16/2024 0124 Gross per 24 hour Intake 1000 ml Output -- Net 1000 ml Diet: Adult diet Regular; 5 carb choices (75 gm/meal) Medications (as per EMR): HomeMeds: No current outpatient medications Scheduled Meds:Scheduled Meds[1] Continuous Infusions:Continuous Meds[2] PRN Meds:PRN Meds[3] Diagnostic Workup: I reviewed pertinent Laboratory results, Radiographic results, and Other Clinical Notes at the time of today's encounter. Labs: No components found for: LABA1C No components found for: EAG Lab Results Component Value Date NA 138 10/16/2024 K 3.1 (L) 10/16/2024 CL 104 10/16/2024 CO2 24 10/16/2024 BUN 12 10/16/2024 CREATININE 0.63 10/16/2024 GLUCOSE 233 (H) 10/16/2024 CALCIUM 8.5 10/16/2024 No results found for: CHLPL, CHOL No results found for: TRIG No results found for: HDL No results found for: LDLCALC No results found for: VLDL No results found for: CHOLHDLRATIO No results found for: [id number] No results found for: TSH, W3ETMSL, H3EPFSO, THYROIDAB Radiology reportsas per the Radiologist Radiology: POCT glucose meter Result Date: 10/16/2024 Performed by: Megan Paige [address] [place] [id number] CLIA ID: [id number] POCT glucose meter Result Date: 10/16/2024 Performed by: Autumn High [facility] [id number] CLIA ID: [id number] ECG 12 lead Sinus rhythm Compared to ECG 10/02/24 No significant change Electronically Signed On 10-16-2024 05:43:53 EDT by Ernesto Dedratanja POCT glucose meter Result Date: 10/16/2024 Performed by: Megan Paige, [address] [place] [id number] CLIA ID: [id number] POCT glucose meter Result Date: 10/16/2024 Performed by: Megan Paige, [address] [facility] [address] CLIA ID: [id number] CT abdomen pelvis w contrast Result Date: 10/16/2024 Patient Name: PUJA WYMAN : 1970 Exam Date/Time: 10/15/2024 23:47 Procedure: CT ABDOMEN PELVIS W CONTRAST Ordering Provider: WILLIAMSON SAMANTHA Reason For Exam: Abdominal pain, acute, nonlocalized; Diffuse epigastric abd pain, hx pancreatic mass, FNA last week, worsening pain CLINICAL INFORMATION: Abdominal pain extending into the pelvis. Recent diagnosis of pancreatic cancer. CT ABDOMEN: 3 mm axial cuts are obtained from the dome of the liver through the iliac crests with 75 mL Isovue IV contrast. Dose reduction was employed with automated exposure control. The examination is compared to a previous study dated 10/02/2024. FINDINGS: A 5.5 cm solid but necrotic-appearing mass is redemonstrated involving the tail of the pancreas. This mildly indents the posterior wall of the stomach. The pancreatic duct is not dilated. The lung bases are included on the examination and demonstrate no focal infiltrates or effusions. The heart size is within normal limits. The liver is essentially homogeneous in its attenuation without focal abnormality. There is no intra or extra hepatic biliary dilatation. The spleen is normal in size. Both adrenal glands are normal. Both kidneys are identified in their cortical phase. Renal cysts are noted bilaterally. The largest measures 2 cm on the right. There is no evidence of hydronephrosis or hydroureter. No free fluid is seen within the abdomen. 1. 5.5 cm solid pancreatic mass. This demonstrates some necrosis. The mass is seen to impress mildly on the posterior wall of the stomach. 2. No hepatic or pancreatic ductal dilatation. 3. Bilateral renal cysts. These require no further imaging. CT PELVIS: 3 mm axial cuts are obtained from the iliac crests through the symphysis pubis with 75 mL Isovue IV contrast. Dose reduction was employed with automated exposure control. The examination is compared to a previous study dated 10/02/2024. FINDINGS: There are nondistended loops of small bowel. Air and stool are identified within the colon to the level of the rectum. There is no evidence of obstruction. The distal ureters and bladder are normal. No free fluid is seen within the pelvis. Sagittal reconstructed images of the spine demonstrate a Grade I/II spondylolisthesis L4 on L5. The slip is approximately 1 cm. The patient is status post L5-S1 fusion. IMPRESSION: 1. 5.5 cm solid pancreatic mass. This demonstrates some necrosis. The mass is seen to impress mildly on the posterior wall of the stomach. 2. No hepatic or pancreatic ductal dilatation. 3. Bilateral renal cysts. These require no further imaging. Report Dictated on Electronically Signed By: Deep Vogel MD Electronically Signed Date/Time: 10/16/2024 12:17 AM EDT History/Other: Past Medical History: Medical History[4] Past Surgical History: Surgical History[5] Allergy(ies): Allergies[6] Family History: Family History[7] Social History: Social History[8] Portions of the information within this encounter were entered using an electronic dictation system. Best attempts were made to edit/proofread the information prior to note completion. Despite the review of information, some errors may remain. If there are questions related to the information contained within the note please contact the signing physician directly. I spent 75 minutes with the pt which involved coordination of care, medical evaluation, review of records, and/or counseling of the pt regarding his/her condition/disease state/prognosis on the date of this note. [1] enoxaparin, 40 mg, SubCUTAneous, Daily insulin glargine, 0.2 Units/kg, SubCUTAneous, Once insulin lispro, 0.2 Units/kg, SubCUTAneous, q2h Or insulin lispro, 0.1 Units/kg, SubCUTAneous, q2h insulin lispro, 0.25 Units/kg, SubCUTAneous, Once [2] lactated Ringer's, 500 mL/hr And dextrose 5 % and sodium chloride 0.45 %, 150 mL/hr And dextrose 5 % and sodium chloride 0.45 %, 250 mL/hr, Last Rate: 250 mL/hr (10/16/24 0642) [3] PRN medications: acetaminophen OR acetaminophen, [] lactated ringers AND lactated Ringer's AND dextrose 5 % and sodium chloride 0.45 % AND dextrose 5 % and sodium chloride 0.45 %, dextrose, dextrose, dextrose, dextrose, glucagon (rDNA), glucagon (rDNA), glucose, glucose, HYDROmorphone, naloxone, ondansetron ODT OR ondansetron, oxyCODONE [4] Past Medical History: Diagnosis Date Anxiety Arthritis COPD (chronic obstructive pulmonary disease) (HCC) Diabetes mellitus (HCC) Headache Hypertension Mitral valve prolapse Neuropathy Non morbid obesity due to excess calories 08/04/2016 Pancreatic abnormality 10/03/2024 Mass; FNA via EUS Reactive depression 08/04/2016 Restless leg syndrome S/P fine needle aspiration 10/03/2024 ENDOSCOPIC ULTRASOUND EXAMINATION Gege Hawkins MD at [facility]; FNA Pancreatic Tail Mass Sleep apnea Tobacco abuse 08/04/2016 [5] Past Surgical History: Procedure Laterality Date ARM SURGERY (HISTORICAL) BACK SURGERY CYST REMOVAL ESOPHAGOSCOPY / EGD N/A 10/03/2024 ESOPHAGOGASTRODUODENOSCOPY, WITH ENDOSCOPIC ULTRASOUND EXAMINATION Gege Hawkins MD at [facility]; FNA Pancreatic Tail Mass EUS (HISTORICAL) N/A 10/03/2024 ESOPHAGOGASTRODUODENOSCOPY, WITH ENDOSCOPIC ULTRASOUND EXAMINATION Gege Hawkins MD at [facility]; FNA Pancreatic Tail Mass HYSTERECTOMY ovaries still there TUBAL LIGATION [6] Allergies Allergen Reactions Hydrocodone Rash Hydrocodone-Acetaminophen Hives and Unknown Tramadol Rash [7] Family History Problem Relation Name Age of Onset High Blood Pressure Father Diabetes Mother Heart disease Mother Diabetes Father Heart disease Father [8] Social History Tobacco Use Smoking status: Every Day Current packs/day: 1.25 Average packs/day: 1.3 packs/day for 41.6 years (51.9 ttl pk-yrs) Types: Cigarettes Start date: 1983 Passive exposure: Past Smokeless tobacco: Never Tobacco comments: Started at 13, 0.5- 2 PPD, quit during her three pregnancies and one additional quit attempt of 6 months, currently 0.5 PPD. 10/04/24 Vaping Use Vaping status: Some Days Substances: THC, CBD Substance Use Topics Alcohol use: Not Currently Drug use: Yes Types: Marijuana Comment: daily Cosigned by Carola Mckinney MD at 10/17/2024 1:09 PM EDT documented in this encounter [facility] 10-22-2024 Note CARE PROGRESSION NOT E Call placed to [facility] transfer center for evaluation by hepatobiliary surgery. This patient was seen as a hospital courtesy for improved patient care and care progression at the request of Dr. Gillespie. Thank you for allowing me to participate in the medical care of your patient. NELY INTERVENTIONS [x] Care Coordination & Progression [] Nursing Function [] Orders Placed [] Symptom Assessment [] Patient Experience [] Patient / Caregiver Conversation [facility] 10-22-2024 Note Hospitalist Progress Note 10/22/2024 Subjective: Admit Date: 10/15/2024 PCP: Donna Kumar DO Room#: B2-268/B2-268 A Interval History: Abdominal pain is better. Tolerating diet. No n/v, cp, sob, cough, f/c. Case and plan discussed with patient and family at bedside. Discussed with Maryanne Stewart APRN, on several occasions who is assisting with potential transfer to [facility] for continued work up and care. All questions answered. Adult diet Regular; 5 carb choices (75 gm/meal) 24HR INTAKE/OUTPUT: Intake/Output Summary (Last 24 hours) at 10/22/2024 1218 Last data filed at 10/22/2024 0959 Gross per 24 hour Intake 678 ml Output -- Net 678 ml Past Medical History: Medical History[1] LABS: CBC: Recent Labs 10/20/24 0154 10/21/24 0258 10/22/24 0216 WBC 8.4 9.4 8.2 RBC 4.23 4.35 4.23 HGB 11.6* 12.1 11.8 HCT 36.5 37.2 36.4 MCV 86.3 85.5 86.1 RDW 13.4 13.2 13.4 PLT 293 314 333 BMP: Recent Labs 10/20/24 0154 10/21/24 0258 10/22/24 0216 NA 135* 134* 138 K 4.4 4.0 4.1 CL 100 100 104 CO2 23 26 27 BUN 19 11 14 CREATININE 0.87 0.70 0.71 GLUCOSE 297* 296* 206* CALCIUM 9.2 9.2 9.2 ANIONGAP 12 8 7 LIVER PROFILE: Recent Labs 10/22/24215 AST 19 ALT 10 BILITOT 0.2 ALKPHOS 96 PROT 6.1* PT/INR: No results for input(s): PROTIME, INR in the last 72 hours. CARDIAC ENZYMES: No results for input(s): TROPONINI in the last 72 hours. Procalcitonin: No results found for: PROCAL COVID-19 PCR: No results for input(s): COVID19 in the last 72 hours. Objective: Vitals: BP 133/86 (BP Location: Left arm, Patient Position: Lying) Pulse 88 Temp 36.4 ?C (97.6 ?F) (Temporal) Resp 20 Ht 5' 2 (1.575 m) Wt 118 lb (53.5 kg) SpO2 98% BMI 21.58 kg/m? Pulse Ox: SpO2 Av.4 % Min: 97 % Max: 100 % Supplemental O2: Physical Exam Vitals and nursing note reviewed. Constitutional: General: She is not in acute distress. Appearance: She is ill-appearing. HENT: Head: Normocephalic. Mouth/Throat: Mouth: Mucous membranes are dry. Eyes: Pupils: Pupils are equal, round, and reactive to light. Cardiovascular: Rate and Rhythm: Normal rate and regular rhythm. Pulses: Normal pulses. Heart sounds: Murmur heard. Pulmonary: Effort: Pulmonary effort is normal. Breath sounds: Normal breath sounds. Abdominal: General: Bowel sounds are normal. There is no distension. Palpations: Abdomen is soft. Tenderness: There is abdominal tenderness. Musculoskeletal: Cervical back: Normal range of motion. Right lower leg: No edema. Left lower leg: No edema. Skin: General: Skin is warm. Capillary Refill: Capillary refill takes less than 2 seconds. Neurological: General: No focal deficit present. Mental Status: She is alert and oriented to person, place, and time. Mental status is at baseline. Psychiatric: Mood and Affect: Mood normal. Medications: Scheduled PRN Scheduled Meds[2] PRN Meds[3] Continuous Continuous Meds[4] Assessment Abdominal pain and nausea Pancreatic cancer DKA DM with hyperglycemia HTN Hypokalemia Anemia BPD Neuropathy Hyperlipidemia RLS Severe malnutrition Plan Palliative Care and Endocrinology and Psychiatry are following, Hem/Onc has seen and recommends transfer to [facility]-arrangements being made with transfer center, continue to adjust pain control, POCT, SS insulin, follow up labs, follow up labs, discharge planning, see orders. Addendum: after discussion with Dr Pena at [facility] (via Airam Stewart), plan will be to get CT chest and discharge home with close follow up next week at [facility] with him and Hem/Onc as outpatient. See orders - am labs, replace lytes prn - PT/OT/CM/SW - delirium precautions: increase activity - DVT prophylaxis: enoxaparin and encourage ambulation Advance Directive: Full Code Anticipated Discharge - Date - 10/23 - Location - Home vs another acute facility - Pending the following - clinical stability, completion of work up and when OK with consultants Total time spent (which include face to face and non face to face encounters) : 46 minutes Toxic drug monitoring/narrow therapeutic index drug monitoring : # Drug name : SS insulin and lovenox # Route administered : subcutaneous and subcutaneous # Method of monitoring : ac/hs blood glucose/daily BMP/hypoglycemia protocol and daily CBC Extended Emergency Contact Information Primary Emergency Contact: fernandezdana Relation: Daughter Xi Ross MD Jose Miguel Division of Hospitalist Medicine Acute care [facility] [1] Past Medical History: Diagnosis Date Anxiety Arthritis COPD (chronic obstructive pulmonary disease) (HCC) Diabetes mellitus (HCC) Headache Hypertension Mitral valve prolapse Neuropathy Non morbid obesity due to excess calories 08/04/2016 Pancreatic abnormality 10/03/2024 Mass; FNA via EUS Reactive depression 08/04/2016 Restless (more content not included)... [facility] 10-22-2024 Note Palliative Care Prog ress Note Chief Complaint: Jewel Helsel is a 54 y.o. female with chief complaint of Dysphagia. Palliative Care is actively following. Assessment/Plan Goals of care Puja Wyman retains capacity for medical decision-making - patient's legal surrogate decision makers are at this time are her 2 daughters - patient wants to complete HCPOA with her brother Garrison Escobedo([phone]) as her HCPOA and her daughter Dana Fernandez([phone]) as alternate agent - called patient's brother Wes twice from her room today, no answer - also called daughter Dana and left HIPAA complaint message for call back - Code status remains Full Code - will continue to have ongoing goals of care conversations with patient, family Bipolar Disorder/HELENA - patient's mood better today - patient on Latuda 20 mg daily, Buspar 5 mg BID Pain - likely due to combination of patient's chronic pain along with pain from cancer - patient with total pain picture with anxiety playing a big part in her pain - requested Psychiatry and palliative trolley cleaner for visit on 10/21 - increased oxycodone dose to 10 mg po every 4 hrs prn on 10/21 from 5 mg, increased gabapentin to 600 mg TID, scheduled tylenol 1000 mg TID - patient today stated that her pain is much better controlled - stated having BM also helped a lot - at this time will continue with above regimen for pain control - patient lives at [place], will have her PCP send referral to palliative care on her area - will continue to monitor patient's pain closely and adjust his medications as needed Constipation - resolved - patient had BM X 3 in last 24 hrs Adenocarcinoma of the pancreas - patient has a pancreatic mass noted on CT 10/02/2024 - biopsy was postive for malignant adenocarcinoma, no distant metastasis - patient seen by Dr. Jha from Oncology on 10/21, per his notes as per surgical team note on 10/04/2024, recommended referral to tertiary care center for hepatobiliary surgical services as [facility] currently does not have a service available - per Dr. Jha's notes it may be reasonable to directly transfer patient to [facility] for further assessment - appreciate PRODUCT MANAGER [employer]ICAL [employer]ICE-CLARENCE Stewart helping with transfer to [facility] - Dr. Pena( hepatobiliary surgeon) from [facility] called back, advised outpatient visit Dysphagia - recommend consulting [facility] Severe PCM - patient is hospice appropriate Restless leg syndrome - on Ropinrole 0.4 mg TID Palliative Care Encounter -Code Status: Full Code - assessed patient or surrogate's understanding of medical condition, addressed goals of care pertinent to the condition and communicated this to the medical team PC Time Stamp: Total of 85 minutes spent on this encounter including Chart review, Patient visit and exam, Documentation in EHR, Care coordination, and Communicating with primary attending or other consultants. Discharge planning: Not ready for discharge due to ongoing medical work-up/critical illness Patient meets criteria for general inpatient hospice care: No Palliative Care IDT members involved: None Discussed the plan of care with the other interdisciplinary team (IDT) members of the Palliative Care and Hospice teams and Patient. Subjective: Subjective/Events Puja Wyman is a 54 y.o. female with pmh significant for pancreatic adenocarcinoma, constipation, bipolar disorder, restless leg syndrom, HTN, peripheral neuropathy, chronic back pain, anxirty who presented to the ED on 10/15 with chief complaint of dysphagia and abdominal pain. Patient seen and examined this morning. Patient was calm, quiet when seen this am. Patient was lying on bed. Patient stated her pain has been much better controlled after Oxycodone dose was increased yesterday and she had bowel movements. Patient had BM X 3 in last 24 hr. Patient denied nausea. Palliative Care Assessments: Goals of care: Continue Current Management, Cure, utilize all available medical therapies necessary, Improve or Maintain Function/Quality of Life, and Improve uncontrolled symptoms Advanced Directives: are complete, but not given to hospital yet. 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 [place] Symptom Assessment Score [place] Sco (more content not included)... [facility] 10-21-2024 Note Reason for consultat ion: Pancreatic adenocarcinoma status post EUS and biopsy on 10/03/2024. Imaging with focal pancreatic mass measuring 5.5 cm. No obvious evidence of distant metastasis on imaging. Readmitted to [facility] in the setting of diabetic ketoacidosis and abdominal discomfort. HPI: 54-year-old female who was hospitalized 2 to 3 weeks ago with abdominal discomfort and found to have a pancreatic mass. Underwent EUS at that time with biopsy confirming pancreatic adenocarcinoma involving the pancreatic tail. Plan at that time as per surgical note was referral to a tertiary center to consider surgical resection as [facility] currently does not have hepatobiliary surgical services. After discharge, she developed worsening abdominal discomfort and found to have diabetic ketoacidosis. She was subsequently readmitted. She admits to 20 to 30 pound weight loss over the past 6 months. She does admit to intermittent nausea associated with diabetes. Pain is mostly located in upper abdominal region. Other PMHx DM Restless legs Anxiety/depression Hysterectomy Chronic back pain status post back surgery HTN Social History Social History[1] Family History Family History[2] Mother - breast ca Allergies Allergies[3] Medications Current Medications[4] Physical Exam: Vitals reviewed Alert, NAD, ecog 0 Imaging/Labs: Lab Results Component Value Date WBC 9.4 10/21/2024 HGB 12.1 10/21/2024 HCT 37.2 10/21/2024 MCV 85.5 10/21/2024 PLT 314 10/21/2024 Lab Results Component Value Date GLUCOSE 296 (H) 10/21/2024 CALCIUM 9.2 10/21/2024 NA 134 (L) 10/21/2024 K 4.0 10/21/2024 CO2 26 10/21/2024 CL 100 10/21/2024 BUN 11 10/21/2024 CREATININE 0.70 10/21/2024 Lab Results Component Value Date ALT 12 10/15/2024 AST 14 10/15/2024 ALKPHOS 141 10/15/2024 BILITOT 0.3 10/15/2024 CEA 46 CA 19-9: 3109 CT abdomen and pelvis 10/16/2024 1. 5.5 cm solid pancreatic mass. This demonstrates some necrosis. The mass is seen to impress mildly on the posterior wall of the stomach. 2. No hepatic or pancreatic ductal dilatation. 3. Bilateral renal cysts. These require no further imaging. CT chest 10/04/2024 1. A few punctate pulmonary nodules right upper lobe measuring up to 3 mm. Fleischner Society Guidelines for low-risk or high-risk patients recommend that one should consider chest CT at 12 months due to the morphology and/or location of this nodule. 2. Mild emphysema most pronounced towards the apices where there is pleural parenchymal scarring. No consolidation or pleural effusions. No pneumothorax. 3. Partial visualization of heterogeneous pancreatic lesion. MRI abdomen 10/03/2024 1. Complex solid cystic lesion involving the pancreatic body/tail, measuring at least 5.8 x 4.8 x 5.8 cm, demonstrating thick irregular peripheral enhancement as well as irregular internal septal enhancement. Precise relationship to pancreatic duct is difficult to discern. No pancreatic ductal dilatation. This lesion abuts portions of the lesser curvature of the proximal stomach, as as well as the medial spleen, and left adrenal gland. Lesion may reflect cystic neoplasm or necrotic adenocarcinoma. Recommend correlation with FNA results. 2. Portions of the splenic artery and splenic vein are obscured by complex solid cystic lesion. Visualized portions appear patent. Motion artifact limits evaluation to some extent. 3. No suspicious liver lesions. 4. A few prominent peripancreatic lymph nodes without bulky adenopathy. 5. Pancreatic perilesional stranding/fluid localized to the left upper quadrant with trace perisplenic ascites. Assessment/Plan: 54 y.o. with Pancreatic adenocarcinoma status post EUS and biopsy on 10/03/2024. Imaging with focal pancreatic mass measuring 5.5 cm. No obvious evidence of distant metastasis on imaging. Readmitted to [facility] in the setting of diabetic ketoacidosis and abdominal discomfort. At this point, she has no obvious evidence of distant metastasis and will need hepatobiliary surgery opinion to determine whether surgical intervention is feasible. We did discuss the role of neoadjuvant chemotherapy if primary resection is not feasible. We also discussed the role of palliative chemotherapy if felt to have more advanced disease not amendable to resection. Please review prior records from last hospital stay. As per surgical team note on 10/04/2024, recommended referral to tertiary care center for hepatobiliary surgical services as [facility] currently does not have a service available. It may be reasonable to directly transfer patient to [facility] for further assessment. She currently lives in [place] and reports that many of the offices in her directly surrounding area do not cover her insurance. Palliative care following for symptom management/pain control. Endocrinology assisting in diabetes management. Further testing such as somatic testing and [place] (more content not included)... [facility] 10-21-2024 Note Care Management Prog ress Note Short Medical why still here: -Pt still with complaints of abdominal pain and nausea. Needs BM. -Endocrine and palliative following. Oncology consulted for pancreatic cancer. Pt will follow up with oncology after discharge. Planned Discharge Disposition: Home or Self Care Barriers/Today we still Wait: Clinical stability, Symptomatic control -grain oilseed or pasture farm manager to follow and assist as needed. Length of Stay (Days): 5 GMLOS: No GMLOS Documented [facility] 10-21-2024 Note Hospitalist Progress Note 10/21/2024 Subjective: Admit Date: 10/15/2024 PCP: Donna Kumar DO Room#: B2-268/B2-268 A Interval History: Still with moderate to severe abdominal pain. Some nausea. No emesis. No cp, sob, cough, f/c. Anxious and agitated at times. Case and plan discussed with patient and Palliative Care separately. All questions answered. Adult diet Regular; 5 carb choices (75 gm/meal) Past Medical History: Medical History[1] LABS: CBC: Recent Labs 10/20/24 0154 10/21/24 0258 WBC 8.4 9.4 RBC 4.23 4.35 HGB 11.6* 12.1 HCT 36.5 37.2 MCV 86.3 85.5 RDW 13.4 13.2 PLT 293 314 BMP: Recent Labs 10/20/24 0154 10/21/24 0258 NA 135* 134* K 4.4 4.0 CL 100 100 CO2 23 26 BUN 19 11 CREATININE 0.87 0.70 GLUCOSE 297* 296* CALCIUM 9.2 9.2 ANIONGAP 12 8 PT/INR: No results for input(s): PROTIME, INR in the last 72 hours. CARDIAC ENZYMES: No results for input(s): TROPONINI in the last 72 hours. Procalcitonin: No results found for: PROCAL COVID-19 PCR: No results for input(s): COVID19 in the last 72 hours. Objective: Vitals: BP 133/86 (BP Location: Left arm, Patient Position: Lying) Pulse 88 Temp 36.4 ?C (97.6 ?F) (Temporal) Resp 20 Ht 5' 2 (1.575 m) Wt 118 lb (53.5 kg) SpO2 98% BMI 21.58 kg/m? Pulse Ox: SpO2 Av.4 % Min: 97 % Max: 100 % Supplemental O2: Physical Exam Vitals and nursing note reviewed. Constitutional: General: She is not in acute distress. Appearance: She is ill-appearing. HENT: Head: Normocephalic and atraumatic. Mouth/Throat: Mouth: Mucous membranes are dry. Eyes: Extraocular Movements: Extraocular movements intact. Conjunctiva/sclera: Conjunctivae normal. Pupils: Pupils are equal, round, and reactive to light. Cardiovascular: Rate and Rhythm: Normal rate and regular rhythm. Pulses: Normal pulses. Heart sounds: Murmur heard. Pulmonary: Effort: Pulmonary effort is normal. Breath sounds: Normal breath sounds. Abdominal: General: Bowel sounds are normal. There is no distension. Palpations: Abdomen is soft. Tenderness: There is abdominal tenderness. There is guarding. There is no rebound. Musculoskeletal: General: Normal range of motion. Cervical back: Neck supple. Right lower leg: No edema. Left lower leg: No edema. Skin: General: Skin is warm and dry. Capillary Refill: Capillary refill takes less than 2 seconds. Neurological: General: No focal deficit present. Mental Status: She is alert and oriented to person, place, and time. Mental status is at baseline. Psychiatric: Mood and Affect: Mood normal. Medications: Scheduled PRN Scheduled Meds[2] PRN Meds[3] Continuous Continuous Meds[4] Assessment Abdominal pain and nausea Pancreatic cancer DKA DM with hyperglycemia HTN Hypokalemia Anemia BPD Neuropathy Hyperlipidemia RLS Severe malnutrition Plan Palliative Care and Endocrinology and Psychiatry are following, Hem/Onc to see, adjust pain control, POCT, SS insulin, follow up labs, may need GS evaluation, may need transfer to tertiary center, follow up labs, discharge planning, see orders. - am labs, replace lytes prn - PT/OT/CM/SW - delirium precautions: increase activity - DVT prophylaxis: enoxaparin and encourage ambulation Advance Directive: Full Code Anticipated Discharge - Date - 10/22-10/24 - Location - Home vs another acute facility - Pending the following - clinical stability, completion of work up and when OK with consultants Total time spent (which include face to face and non face to face encounters) : 48 minutes Toxic drug monitoring/narrow therapeutic index drug monitoring : # Drug name : SS insulin and lovenox # Route administered : subcutaneous and subcutaneous # Method of monitoring : ac/hs blood glucose/daily BMP/hypoglycemia protocol and daily CBC Extended Emergency Contact Information Primary Emergency Contact: dana fernandez Relation: Daughter Xi Isabelliane Gillespie MD Division of Hospitalist Medicine [facility] [1] Past Medical History: Diagnosis Date Anxiety Arthritis COPD (chronic obstructive pulmonary disease) (HCC) Diabetes mellitus (HCC) Headache Hypertension Mitral valve prolapse Neuropathy Non morbid obesity due to excess calories 08/04/2016 Pancreatic abnormality 10/03/2024 Mass; FNA via EUS Reactive depression 08/04/2016 Restless leg syndrome S/P fine needle aspiration 10/03/2024 ENDOSCOPIC ULTRASOUND EXAMINATION Gege Hawkins MD at [facility]; FNA Pancreatic Tail Mass Sleep apnea Tobacco abuse 08/04/2016 [2] acetaminophen, 1,000 mg, Oral, TID busPIRone, 5 mg, Oral, BID enoxaparin, 40 mg, SubCUTAneous, Daily gabapentin, 600 mg, Oral, TID insulin glargine, 22 Units, SubCUTAneous, Nightly insulin lispro, 0-12 Units, SubCUTAneous, TID WC insulin lispro, 4 Units, SubCUTAneous, TID WC lisinopril, 10 mg, Ora (more content not included)... [facility] 10-21-2024 Note Palliative Care Prog ress Note Chief Complaint: Puja Wyman is a 54 y.o. female with chief complaint of Dysphagia. Palliative Care is actively following. Assessment/Plan Goals of care Full Code Puja Wyman retains capacity for medical decision-making - patient's legal surrogate decision makers are at this time are her 2 daughters - patient wants to complete HCPOA with her brother Garrison Escobedo([phone]) as her HCPOA and her daughter Christine Fernandez([phone]) as alternate agent - patient stated she filled HCPOA paperwork wrong and has requested new copy from clam bed worker - Code status remains Full Code - will continue to have ongoing goals of care conversations with patient, family Bipolar Disorder/HELENA - patient with panic episode when seen this am, was tearful, stated nobody cares for her - provided empathetic listening and emotional support to patient - patient on Latuda 20 mg daily, Buspar 5 mg BID - updated psychiatry team on patient's condition, appreciative the team visiting patient this afternoon - appreciate palliative trolley cleaner Laceywer visiting patient today Pain - likely due to combination of patient's chronic pain along with pain from cancer - patient with total pain picture with anxiety playing a big part in her pain - patient was complaining intractable abdominal pain this am, imaging did not show bowel obstruction - increased oxycodone dose to 15-10 mg po every 4 hrs prn - increased gabapentin to 600 mg TID - scheduled tylenol 1000 mg TID - will continue to monitor patient's pain closely and adjust his medications as needed Constipation - last bowel movement 2 wks back - will increase senna s to 2 tabs twice daily, will change miralax to 17 gms daily - will give dulcolax suppository x 1 today and continue prn Adenocarcinoma of the pancreas -Patient has a pancreatic mass noted on CT 10/02/2024 -Biopsy was postive for malignant adenocarcinoma Dysphagia - recommend consulting S[facility] LINE Restless leg syndrome - on Ropinrole 0.4 mg TID Palliative Care Encounter -Code Status: Full Code - assessed patient or surrogate's understanding of medical condition, addressed goals of care pertinent to the condition and communicated this to the medical team PC Time Stamp: Total of 85 minutes spent on this encounter including Chart review, Patient visit and exam, Documentation in EHR, Care coordination, and Communicating with primary attending or other consultants. Discharge planning: Not ready for discharge due to ongoing medical work-up/critical illness Patient meets criteria for general inpatient hospice care: No Palliative Care IDT members involved: None Discussed the plan of care with the other interdisciplinary team (IDT) members of the Palliative Care and Hospice teams and Patient. Subjective: Subjective/Events Puja Wyman is a 54 y.o. female with pmh significant for pancreatic adenocarcinoma, constipation, bipolar disorder, restless leg syndrom, HTN, peripheral neuropathy, chronic back pain, anxirty who presented to the ED on 10/15 with a chief complaint of dysphagia and abdominal pain. Patient seen and examined this morning. Prior to my visit was notified by primary team attending that patient was having increasing anand. Patient was not present in her room, found her in family conference room sobbing. Patient stated that no one cares about her, the staff said she was having bowel obstruction. Patient stated she is having uncontrolled pain in her abdomen, stated Oxycodone is not helping her. Patient stated her last bowel movement was 2 wks back. Palliative Care Assessments: Goals of care: Continue Current Management, Cure, utilize all available medical therapies necessary, Improve or Maintain Function/Quality of Life, and Improve uncontrolled symptoms Advanced Directives: are complete, but not given to hospital yet. 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 [place] Symptom Assessment Score [place] Score Pain Score (if non-verbal, add .FLACC below) 10 Tiredness Score 8 Nausea Score 0 Depression Score 2 Anxiety Score 10 Drowsiness Score 0 Anorexia Score (0= eating well, 10= not eating) 8 Wellbeing Score (10= worst sense of well-being) 8 Constipation (more content not included)... [facility] 10-20-2024 Note Hospitalist Progress Note 10/20/2024 Subjective: Admit Date: 10/15/2024 PCP: Donna Kumar DO Room#: B2-268/B2-268 A BRIEF HOSPITAL COURSE: 54-year-old patient with past medical history of anxiety depression, HTN, pancreatic abnormality status post FNA via EUS 10/03 (CA 19-9, CEA all abn), RLS, sleep apnea, tobacco use who presented 10/15 with complaints of abdominal pain found to be in DKA. While hospitalized endocrine was following and treating his DKA which has since resolved, palliative care was consulted for complaints of dysphagia and to get his goals of care, psychiatry consulted for patient's psychiatric medical conditions. No oncology consult seen (STILL CONSULTED, follow up 10/21), pt states plan was to follow up at [facility]. 10/19 a lot of gas and headache, medications adjusted 10/20 encouraging better eating habits. Spent time wth patient and fam discussing next steps. Oncology has yet to see pt. Interval History: Labs and vitals reviewed this morning, continues to be stable but blood glucose continues to increase 417 this morning. Edgar is following and has been adjusting her insulin.no major complaints today, just wondering plan for after dispo. No oncology notes noted this admission, states that she does have somebody's card and she is to follow-up outpatient. Plan is for her to go to [place] for follow-up. Of note she was eating a frosty that her family brought in. Adult diet Regular; 5 carb choices (75 gm/meal) 24HR INTAKE/OUTPUT: Intake/Output Summary (Last 24 hours) at 10/20/2024 0855 Last data filed at 10/19/2024 1116 Gross per 24 hour Intake 120 ml Output -- Net 120 ml Past Medical History: Medical History[1] LABS: CBC: Recent Labs 10/18/24 0340 10/19/24 0322 10/20/24 0154 WBC 9.6 9.9 8.4 RBC 4.10 4.34 4.23 HGB 11.5* 12.0 11.6* HCT 34.3* 36.7 36.5 MCV 83.7 84.6 86.3 RDW 13.0 13.3 13.4 PLT 287 291 293 BMP: Recent Labs 10/18/24 0340 10/19/24 0322 10/20/24 0154 NA 133* 135* 135* K 3.7 3.4* 4.4 CL 102 102 100 CO2 23 BUN 11 10 19 CREATININE 0.66 0.63 0.87 GLUCOSE 289* 277* 297* CALCIUM 8.5 8.4 9.2 ANIONGAP 8 10 12 LIVER PROFILE:No results for input(s): AST, ALT, BILITOT, ALKPHOS, PROT in the last 72 hours. No lab exists for component: LABALBU PT/INR: No results for input(s): PROTIME, INR in the last 72 hours. CARDIAC ENZYMES: No results for input(s): TROPONINI in the last 72 hours. Procalcitonin: No results found for: PROCAL COVID-19 PCR: No results for input(s): COVID19 in the last 72 hours. Objective: Vitals: BP 132/82 (BP Location: Right arm, Patient Position: Lying) Pulse 95 Temp 37.3 ?C (99.2 ?F) (Oral) Resp 16 Ht 5' 2 (1.575 m) Wt 118 lb (53.5 kg) SpO2 99% BMI 21.58 kg/m? Pulse Ox: SpO2 Av.3 % Min: 95 % Max: 99 % Supplemental O2: Physical Exam Vitals reviewed. Constitutional: General: She is not in acute distress. Appearance: Normal appearance. She is not ill-appearing or toxic-appearing. Comments: Eating a frosty HENT: Head: Normocephalic. Cardiovascular: Rate and Rhythm: Normal rate. Heart sounds: Normal heart sounds. Pulmonary: Effort: Pulmonary effort is normal. No respiratory distress. Breath sounds: Normal breath sounds. Neurological: Mental Status: She is alert. Psychiatric: Mood and Affect: Mood normal. Behavior: Behavior normal. Medications: Scheduled PRN Scheduled Meds[2] PRN Meds[3] Continuous Continuous Meds[4] Assessment Data: (LOW: 2x CAT1 or independent historian MOD: 3x CAT1 or 1x CAT3 EXTENSIVE: 3x CAT1 and 1x CAT3) Acute, acute on chronic, unstable/uncontrolled chronic problems/diagnoses: Intractable abdominal pain, nausea and vomiting due to gastroparesis Gastroparesis DKA due to pancreatic abnormality and type 2 diabetes Persistent hyperglycemia Pancreatic cancer status post EUS with FNA positive for adenocarcinoma Constipation Headache Stable chronic problems affecting care, new non-acute diagnoses: Anxiety Depression Bipolar disorder Chronic pain syndrome RLS HTN HLD Neuropathy Plan As a result of the above findings & factors, the following mgmt was pursued: Intractable abdominal pain, nausea and vomiting due to gastroparesis Gastroparesis DKA due to pancreatic abnormality -Endocrine following and continues to adjust her insulin regimen - 10/19 Lantus 22 units nightly, 8 units lispro 3 times daily with meals, MD JOEL Mantilla BG 10/20 AM 417 despite adjustment as above Pancreatic cancer status post EUS with FNA positive for adenocarcinoma - Palliative consulted due to adenocarcinoma diagnosis - Patient remains full code at this time with HPCOA determined as brother and daughter as his alternate agent - plan to follow up in [place] - oncology consult in, follow up if not seen by 10/21 to ensure no recs from them Anxiety Depression Bipolar disorder - Given gissel (more content not included)... [facility] 10-19-2024 Telephone encounter Note Spoke with patient over weekend. She would like to follow with us--TE sent--if she is still inpt Monday she would like to start Meka--she has nely. [facility] Work Phone: 10-19-2024 Miscellaneous Notes Spoke with patient over weekend. She would like to follow with us--TE sent--if she is still inpt Monday she would like to start Meka--she has nely. documented in this encounter [facility] 10-19-2024 Note Hospitalist Progress Note 10/19/2024 Subjective: Admit Date: 10/15/2024 PCP: Donna Kumar DO Room#: B2-268/B2-268 A BRIEF HOSPITAL COURSE: 54-year-old patient with past medical history of anxiety depression, HTN, pancreatic abnormality status post FNA via EUS, RLS, sleep apnea, tobacco use who presented 10/15 with complaints of abdominal pain found to be in DKA. While hospitalized endocrine was following and treating his DKA which has since resolved, palliative care was consulted for complaints of dysphagia and to get his goals of care, psychiatry consulted for patient's psychiatric medical conditions. Interval History: No overnight issues. Labs and vitals reviewed, psychiatry, palliative and Endo notes reviewed from 10/18. Case and plan discussed with patient , Very emotional today stating that her children have not been by to visit other than her youngest daughter who is earlier at bedside on my rounds. Complaints of headache today and significant abdominal distention/bloating due to gas, discussed plan of care. All questions answered. Adult diet Regular; 5 carb choices (75 gm/meal) 24HR INTAKE/OUTPUT: Intake/Output Summary (Last 24 hours) at 10/19/2024 0901 Last data filed at 10/19/2024 0555 Gross per 24 hour Intake 600 ml Output -- Net 600 ml Past Medical History: Medical History[1] LABS: CBC: Recent Labs 10/17/24 0121 10/18/24 0340 10/19/24 0322 WBC 10.8* 9.6 9.9 RBC 4.30 4.10 4.34 HGB 11.9 11.5* 12.0 HCT 36.5 34.3* 36.7 MCV 84.9 83.7 84.6 RDW 13.1 13.0 13.3 PLT 313 287 291 BMP: Recent Labs 10/17/24 0121 10/18/24 0340 10/19/24 0322 NA 135* 133* 135* K 3.8 3.7 3.4* CL 103 102 102 CO2 21* 23 23 BUN 10 11 10 CREATININE 0.61 0.66 0.63 GLUCOSE 336* 289* 277* CALCIUM 8.3* 8.5 8.4 ANIONGAP 11 8 10 LIVER PROFILE:No results for input(s): AST, ALT, BILITOT, ALKPHOS, PROT in the last 72 hours. No lab exists for component: LABALBU PT/INR: No results for input(s): PROTIME, INR in the last 72 hours. CARDIAC ENZYMES: No results for input(s): TROPONINI in the last 72 hours. Procalcitonin: No results found for: PROCAL COVID-19 PCR: No results for input(s): COVID19 in the last 72 hours. Objective: Vitals: BP (!) 179/104 Pulse 96 Temp 37.1 ?C (98.7 ?F) (Temporal) Resp 18 Ht 5' 2 (1.575 m) Wt 118 lb (53.5 kg) SpO2 98% BMI 21.58 kg/m? Pulse Ox: SpO2 Av.3 % Min: 95 % Max: 99 % Supplemental O2: Physical Exam Vitals reviewed. Constitutional: General: She is not in acute distress. Appearance: She is not ill-appearing or toxic-appearing. HENT: Head: Normocephalic. Cardiovascular: Rate and Rhythm: Normal rate. Pulmonary: Effort: Pulmonary effort is normal. No respiratory distress. Abdominal: General: There is distension. Musculoskeletal: General: No deformity. Neurological: Mental Status: She is alert. Psychiatric: Comments: sad Medications: Scheduled PRN Scheduled Meds[2] PRN Meds[3] Continuous Continuous Meds[4] Assessment Data: (LOW: 2x CAT1 or independent historian MOD: 3x CAT1 or 1x CAT3 EXTENSIVE: 3x CAT1 and 1x CAT3) Acute, acute on chronic, unstable/uncontrolled chronic problems/diagnoses: Intractable abdominal pain, nausea and vomiting due to gastroparesis Gastroparesis DKA due to pancreatic abnormality and type 2 diabetes Pancreatic cancer status post EUS with FNA positive for adenocarcinoma Constipation Headache Stable chronic problems affecting care, new non-acute diagnoses: Anxiety Depression Bipolar disorder Chronic pain syndrome RLS HTN HLD Neuropathy Plan As a result of the above findings & factors, the following mgmt was pursued: Intractable abdominal pain, nausea and vomiting due to gastroparesis Gastroparesis DKA due to pancreatic abnormality Pancreatic cancer status post EUS with FNA positive for adenocarcinoma -Endocrine following current insulin regimen is 12 units Lantus, 8 units Humalog 3 times daily with meals, SS insulin - stable for dc from endo s/p - Palliative consulted due to adenocarcinoma diagnosis - Patient remains full code at this time with HPCOA determined as brother and daughter as his alternate agent Anxiety Depression Bipolar disorder - Given diagnosis of cancer psychiatry was also reached out to - Currently continued on his Latuda 20 mg with food and BuSpar 5 mg twice daily Constipation - Patient without BM - Continue with bowel regimen - added gas x for gas Headache - toradol x1 10/19 because patient states oxy not helping - am labs, replace lytes prn - PT/OT/CM/SW - delirium precautions: increase activity - DVT prophylaxis: enoxaparin and encourage ambulation Complexity: Acute illness with systemic symptoms (MOD). Risk: Admission to hospital-level care was considered or occurred (HIGH). Advance Directive: Full Code Anticipated Discharge - Date - medical (more content not included)... [facility] 10-18-2024 Note Hospitalist Progress Note 10/18/[id number]: Please page me ([phone]) for patient care issues. [phone]: Please page [facility] night Hospitalist for any issues. Subjective: Admit Date: 10/15/2024 PCP: Donna Kumar DO Room#: B2-268/B2-268 A Interval History: Patient is sitting on the bed, tolerating diet, nausea vomiting improving. Denies any chest pain shortness of breath or palpitations. Adult diet Regular; 5 carb choices (75 gm/meal) @[id number]@ 24HR INTAKE/OUTPUT: No intake or output data in the 24 hours ending 10/18/24 1704 Past Medical History: Medical History[1] LABS: CBC: Recent Labs 10/15/24 2224 10/16/24 0025 10/16/24 0957 10/17/24 0121 10/18/24 0340 WBC 13.0* -- -- 10.8* 9.6 RBC 4.99 -- -- 4.30 4.10 HGB 13.7 < > 13.0 11.9 11.5* HCT 41.5 -- -- 36.5 34.3* MCV 83.2 -- -- 84.9 83.7 RDW 13.3 -- -- 13.1 13.0 PLT 363 -- -- 313 287 < > = values in this interval not displayed. BMP: Recent Labs 10/16/24 0957 10/17/24 0121 10/18/24 0340 NA 138 135* 133* K 3.1* 3.8 3.7 CL 104 103 102 CO2 24 21* 23 BUN 12 10 11 CREATININE 0.63 0.61 0.66 GLUCOSE 233* 336* 289* CALCIUM 8.5 8.3* 8.5 ANIONGAP 10 11 8 LIVER PROFILE: Recent Labs 10/15/24 2224 AST 14 ALT 12 BILITOT 0.3 ALKPHOS 141 PROT 7.2 PT/INR: No results for input(s): PROTIME, INR in the last 72 hours. CARDIAC ENZYMES: No results for input(s): TROPONINI in the last 72 hours. Procalcitonin: No results found for: PROCAL COVID-19 PCR: No results for input(s): COVID19 in the last 72 hours. Objective: Vitals: BP 159/83 (BP Location: Right arm, Patient Position: Lying) Pulse 82 Temp 37.1 ?C (98.7 ?F) (Temporal) Resp 16 Ht 5' 2 (1.575 m) Wt 118 lb (53.5 kg) SpO2 97% BMI 21.58 kg/m? Pulse Ox: SpO2 Av.7 % Min: 95 % Max: 99 % Supplemental O2: General appearance: No apparent distress, appears stated age and cooperative with exam HEENT: Normal cephalic, atraumatic without obvious deformity. Pupils equal, round, and reactive to light. Extra ocular muscles intact. Conjunctivae/corneas clear. Neck: Supple, with full range of motion. No jugular venous distention. Trachea midline. No lymphadenopathy. Respiratory: Normal respiratory effort. Clear to auscultation, bilaterally without Rales/Wheezes/Rhonchi. Cardiovascular: Regular rate and rhythm with normal S1/S2 without murmurs, rubs or gallops. Abdomen: Soft, non-tender, non-distended with normal bowel sounds. No rebound or guarding. Musculoskeletal: No clubbing, cyanosis or edema bilaterally. Full range of motion without deformity, +2 peripheral pulses in all extremities. Skin: Skin color, texture, turgor normal. No rashes or lesions. Neurologic: Neurovascularly intact without any focal sensory/motor deficits. Cranial nerves: II-XII intact, grossly non-focal. Medications: Continuous Meds[2] Scheduled Meds[3] Assessment Intractable abdominal pain. Intractable nausea vomiting. DKA. Gastroparesis. Pancreatic cancer-status post EUS with fine-needle biopsy and pathology positive for adenocarcinoma. History of: Depression/anxiety/bipolar. Chronic pain syndrome. Restless leg syndrome. Insulin-dependent diabetes mellitus Hypertension Hyperlipidemia. Neuropathy. Plan: Initially patient was started on DKA lites protocol, DKA resolved. Endocrinology is managing. Abdominal pain nausea vomiting improving-continue symptomatic treatment. Tolerating p.o. diet well. As fine-needle biopsy showing adenocarcinoma of the pancreas-oncology consult is pending Palliative care managing pain medications. Psychiatry consulted-discontinued Effexor and Seroquel, continue Latuda, started on BuSpar. Follow-up CBC BMP ordered. DVT prophylaxis:/Lovenox subcu daily. Disposition: Pending consultants clearance. Possible discharge in next 1 to 2 days. -am labs, replace lytes prn -increase activity -DVT prophylaxis: [] Lovenox [] Heparin [] SCDs [x] Encourage ambulation [] Already on Anticoagulation Advance Directive: Full Code Discharge planning: TBD [facility] Ryan Rivera MD Division of Hospitalist Medicine Inpatient Medical Services[place] [place]: [phone] [1] Past Medical History: Diagnosis Date Anxiety Arthritis COPD (chronic obstructive pulmonary disease) (HCC) Diabetes mellitus (HCC) Headache Hypertension Mitral valve prolapse Neuropathy Non morbid obesity due to excess calories 08/04/2016 Pancreatic abnormality 10/03/2024 Mass; FNA via EUS Reactive depression 08/04/2016 Restless leg syndrome S/P fine needle aspiration 10/03/2024 ENDOSCOPIC ULTRASOUND EXAMINATION Gege Hawkins MD at [facility]; FNA Pancreatic Tail Mass Sleep apnea Tobacco abuse 08/04/2016 [2] [3] busPIRone, 5 mg, Oral, BID enoxaparin, 40 mg, SubCUTAneous, Daily gabapentin, 400 mg, Oral, TID insulin glargine, 12 Units, SubCUTAneous, Nightly insulin lispro, 0-12 Unit (more content not included)... [facility] 10-18-2024 Note Care Management Prog ress Note Short Medical why still here: -Endocrinology, Palliative (pain management) and Psychiatry following. GI following and Oncology consulted for pancreatic cancer diagnosis. -SW following for HCPOA paperwork Planned Discharge Disposition: Home or Self Care Barriers/Today we still Wait: Clinical stability, Symptomatic control grain oilseed or pasture farm manager to follow and assist as needed. Length of Stay (Days): 2 GMLOS: No GMLOS Documented [facility] 10-18-2024 Note Palliative Care Prog ress Note Chief Complaint: Puja Wyman is a 54 y.o. female with chief complaint of Dysphagia. Palliative Care is actively following. Assessment/Plan Goals of care Full Code Puja Wyman retains capacity for medical decision-making - patient's legal surrogate decision makers are at this time her 2 daughters - patient wants to complete HCPOA with her brother Garrison Escobedo([phone]) as her HCPOA and her daughter Christine Fernandez([phone]) as alternate agent - will request social human services assistants for assistance with HCPOA documentation -see subjective for details of conversation -Patient refused when offered to call her family. 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 -Patient wants to remain full code but does not want to be on group home life support. -Provided emotional support to patient. Will continue to follow and address goals of care. -goals of care include: 1) c/w current management. 2) improve and/or preserve as much QOL as possible. 3) utilize all available medical therapies necessary DKA Insulin Dependent Diabetes Mellitus Hyperglycemia -Mx by endrocrine -Humalog 8 units TID with meals -Humalog medium dose sliding scale ACHS -Lantus 10 units nightly Peripheral neuropathy -gabapention 400 mg TID Gastroparesis Constipation -Patient reports history of gastroparesis and diffused abdominal pain. - Patient reports last bowel movement was over a week ago. -patient stats that the miralax is not helping her with her constipation. -Imaging make obstructions less likely. -start patient on Senna - S -No bowel movement today. Will continue to monitor and act accordingly. HTN -Mx via the primary team, -Currently on lisinopril 10 mg -metoprolol 25 mg Restless leg syndrome -Patient has a pmh significant for restless movement at night. -patient explained that restless movement interfers with her ability to sleep. -c/w Ropinrole 0.4 mg TID Nausea Pancreatic mass Abdominal pain -Patient has a pancreatic mass noted on CT 10/02/2024 -Biopsy was postive for malignant adenocarcinoma -Patient has abdominal pain that radiates to her back -Patient states that she ran out of medication last time she was discharge from the hospital and that her abdominal pain is one of the reasons she went to the ER. -Pallative med will continue to follow and provide emotional support and symptoms management. -c/w zofran 4 mg PRN -Change paitent pain management to oxycodone every 4 hours. -Will discharge with palliative medicine follow up to c/w outpatient pain management -Patient will need follow up with a hepatobiliary surgery according to GI notes, -Oncology consulted, recommendation pending Dysphagia -Patient chief complaint was dysphagia -Patient said that she has trouble swallowing food and has pain with swallowing -Patient dysphagia is interferring with her ability to eat -Recommend Speech pathology consult to assess patient abilty to swallow. Bipolar disorder Anxiety -Patient has a hx of anxiety and bipolar disorder -Patient states that she used to be on seroquel for Bipolar disorder but stop taking it because it would make her confused and tired. -Patient was mildly elated during examination today. Was hard to tell if it was secondary to anxiety or guzman. -Psych following appreciate recommendations -dc effexor and start Latuda 20 mg and Buspar 5 mg Debility -patient goal is to get back as much strength and perserve QOL as much as possible. -the patient explained that over the passed year she has loss a bunch of weight and muscle are diffusely weak. -patient said that she unable to performed ADLs and walk long distant and expressed fear of falling when no one around. -Patient current lives with boyfriend who works a lot. -Recommend pt evaluation of patient before discharge. Palliative Care Encounter -Code Status: Full Code - assessed patient or surrogate's understanding of medical condition, addressed goals of care pertinent to the condition and communicated this to the medical team PC Time Stamp: Total of 85 minutes spent on this encounter including Chart review, Patient visit and exam, Documentation in EHR, Care coordination, and Communicating with primary attending or other consultants. Discharge planning: Not ready for discharge due to ongoing medical work-up/critical illness Patient meets criteria for general inpatient hospice care: No Palliative Care IDT members involved: None Discussed the plan of care with the other interdisciplinary team (IDT) members of the Palliative Care and Hospice teams and Patient. Attending Supervision: I performed a history and physical examination of the patient and discussed his management with the medical student Ramsey Vanegas. I was present for or performed myself denson components of history and physical exam. I reviewed their note and agre (more content not included)... [facility] 10-17-2024 Note Hospitalist Progress Note 10/17/2024 [phone]: Please page me ([phone]) for patient care issues. [phone]: Please page [facility] night Hospitalist for any issues. Subjective: Admit Date: 10/15/2024 PCP: Donna Kumar DO Room#: B2-268/B2-268 A Interval History: Patient is sitting on the bed, tolerating diet, nausea vomiting improving. Denies any chest pain shortness of breath or palpitations. Adult diet Regular; 5 carb choices (75 gm/meal) @[id number]@ 24HR INTAKE/OUTPUT: Intake/Output Summary (Last 24 hours) at 10/17/2024 2157 Last data filed at 10/17/2024 0929 Gross per 24 hour Intake 240 ml Output -- Net 240 ml Past Medical History: Medical History[1] LABS: CBC: Recent Labs 10/15/24 2224 10/16/24 0025 10/16/24 0847 10/16/24 0957 10/17/24 0121 WBC 13.0* -- -- -- 10.8* RBC 4.99 -- -- -- 4.30 HGB 13.7 < > 6.7* 13.0 11.9 HCT 41.5 -- -- -- 36.5 MCV 83.2 -- -- -- 84.9 RDW 13.3 -- -- -- 13.1 PLT 363 -- -- -- 313 < > = values in this interval not displayed. BMP: Recent Labs 10/16/24 0435 10/16/24 0957 10/17/24 0121 NA 135* 138 135* K 3.6 3.1* 3.8 CL 106 104 103 CO2 16* 24 21* BUN 14 12 10 CREATININE 0.72 0.63 0.61 GLUCOSE 279* 233* 336* CALCIUM 9.0 8.5 8.3* ANIONGAP 13 10 11 LIVER PROFILE: Recent Labs 10/15/244 AST 14 ALT 12 BILITOT 0.3 ALKPHOS 141 PROT 7.2 PT/INR: No results for input(s): PROTIME, INR in the last 72 hours. CARDIAC ENZYMES: No results for input(s): TROPONINI in the last 72 hours. Procalcitonin: No results found for: PROCAL COVID-19 PCR: No results for input(s): COVID19 in the last 72 hours. Objective: Vitals: BP (!) 170/99 Pulse 97 Temp 36.9 ?C (98.5 ?F) (Temporal) Resp 20 Ht 5' 2 (1.575 m) Wt 118 lb (53.5 kg) SpO2 95% BMI 21.58 kg/m? Pulse Ox: SpO2 Av.9 % Min: 92 % Max: 100 % Supplemental O2: General appearance: No apparent distress, appears stated age and cooperative with exam HEENT: Normal cephalic, atraumatic without obvious deformity. Pupils equal, round, and reactive to light. Extra ocular muscles intact. Conjunctivae/corneas clear. Neck: Supple, with full range of motion. No jugular venous distention. Trachea midline. No lymphadenopathy. Respiratory: Normal respiratory effort. Clear to auscultation, bilaterally without Rales/Wheezes/Rhonchi. Cardiovascular: Regular rate and rhythm with normal S1/S2 without murmurs, rubs or gallops. Abdomen: Soft, non-tender, non-distended with normal bowel sounds. No rebound or guarding. Musculoskeletal: No clubbing, cyanosis or edema bilaterally. Full range of motion without deformity, +2 peripheral pulses in all extremities. Skin: Skin color, texture, turgor normal. No rashes or lesions. Neurologic: Neurovascularly intact without any focal sensory/motor deficits. Cranial nerves: II-XII intact, grossly non-focal. Medications: Continuous Meds[2] Scheduled Meds[3] Assessment Intractable abdominal pain. Intractable nausea vomiting. DKA. Gastroparesis. Pancreatic cancer-status post EUS with fine-needle biopsy and pathology positive for adenocarcinoma. History of: Depression/anxiety/bipolar. Chronic pain syndrome. Restless leg syndrome. Insulin-dependent diabetes mellitus Hypertension Hyperlipidemia. Neuropathy. Plan: Initially patient was started on DKA lites protocol, DKA resolved. Endocrinology is managing. Abdominal pain nausea vomiting improving-continue symptomatic treatment. Tolerating p.o. diet well. As fine-needle biopsy showing adenocarcinoma of the pancreas-oncology consult placed. Palliative care managing pain medications. Psychiatry consulted-discontinued Effexor and Seroquel, continue Latuda, started on BuSpar. Follow-up CBC BMP ordered. DVT prophylaxis:/Lovenox subcu daily. Disposition: Pending consultants clearance. Possible discharge in next 1 to 2 days. -am labs, replace lytes prn -increase activity -DVT prophylaxis: [] Lovenox [] Heparin [] SCDs [x] Encourage ambulation [] Already on Anticoagulation Advance Directive: Full Code Discharge planning: NATHALIE Rivera MD Division of Hospitalist Medicine [place]patient Medical Services[place]: [phone] [1] Past Medical History: Diagnosis Date Anxiety Arthritis COPD (chronic obstructive pulmonary disease) (HCC) Diabetes mellitus (HCC) Headache Hypertension Mitral valve prolapse Neuropathy Non morbid obesity due to excess calories 08/04/2016 Pancreatic abnormality 10/03/2024 Mass; FNA via EUS Reactive depression 08/04/2016 Restless leg syndrome S/P fine needle aspiration 10/03/2024 ENDOSCOPIC ULTRASOUND EXAMINATION Gege Hawkins MD at [facility]; FNA Pancreatic Tail Mass Sleep apnea Tobacco abuse 08/04/2016 [2] [3] busPIRone, 5 mg, Oral, BID enoxaparin, 40 mg, SubCUTAneous, Daily gabapentin, 400 mg, Oral, TID insulin glargine, 12 Units, SubCUTAneous, Nigh (more content not included)... [facility] 10-17-2024 Note GI CONSULTATION Patient: Puja Wyman : 1970 Primary Care Physician: Donna Kumar DO Inpatient consult to Gastroenterology Consult performed by: Omar Cruz MD Consult ordered by: Alen Rivera MD REASON FOR CONSULTATION: Abdominal pain, pancreatic mass HISTORY OF PRESENT ILLNESS: Puja Wyman is a 54 y.o. female with PMH below who presented to the ER complaining of abdominal pain. Patient was recently in the hospital when CT scan found a pancreatic mass during workup of worsening abdominal/back pain over the past several weeks. Notes a 10lbs weight loss in the past month. History of gastroparesis and had previously lost close to 100lbs due to ongoing symptoms of nausea/vomiting and decreased appetite. CT on admission showed a 5.5cm pancreatic mass in the body/tail abutting the stomach. EUS was performed on last admission and biopsies confirmed malignancy. Patient was discharged home to follow-up with hepatobiliary surgery in [place]/ but was unable to meet with that provider. Patient has been having significant abdominal pain causing her not to be able to eat or drink anything. Denies fever/chills, chest pain, shortness of breath. Patient admitted for further evaluation management. PAST MEDICAL HISTORY: Medical History[1] PAST SURGICAL HISTORY: Surgical History[2] FAMILY HISTORY: Family History[3] SOCIAL HISTORY: TOBACCO: Tobacco Use History[4] ETOH: Alcohol Use: Not At Risk (10/15/2024) AUDIT-C Frequency of Alcohol Consumption: Never Average Number of Drinks: Patient does not drink Frequency of Binge Drinking: Never DRUGS: Social History Substance and Sexual Activity Drug Use Yes Types: Marijuana Comment: daily MEDICATIONS PRIOR TO ADMISSION: Current Outpatient Medications Medication Instructions celecoxib (CELEBREX) 100 mg, Oral, 2 times daily cyclobenzaprine (FLEXERIL) 5 mg, 2 times daily PRN gabapentin (NEURONTIN) 400 mg, 3 times daily insulin glargine (LANTUS) 30 Units, SubCUTAneous, 2 times daily, One dose in the morning and one nightly Insulin Lispro (HUMALOG) 10 Units, SubCUTAneous, 3 times daily with meals lisinopril 10 mg, Daily metoprolol tartrate (LOPRESSOR) 25 mg, 2 times daily oxybutynin (DITROPAN) 5 mg, Oral, 3 times daily rOPINIRole (REQUIP) 1 mg, Oral, 1 tablet in AM and 2 tablet nightly venlafaxine (EFFEXOR) 50 mg CURRENT MEDICATIONS: Current Medications[5] ALLERGIES: Allergies[6] REVIEW OF SYSTEMS: No fever, chills, or sweats. Normal appetite and weight. No GARCIA, visual disturbance, eye pain, jaundice, sore throat or mouth ulcers. No skin rash or itching. No CP, SOB, BLUM, cough or wheeze. No urinary frequency, urgency, hematuria, or dysuria. No myalgia, arthralgia, or joint swelling. No weakness, numbness, or confusion. GI per HPI. No polyuria, polydipsia, heat or cold intolerance. PHYSICAL EXAM: VS: BP (!) 170/99 Pulse 97 Temp 36.9 ?C (98.5 ?F) (Temporal) Resp 20 Ht 5' 2 (1.575 m) Wt 118 lb (53.5 kg) SpO2 95% BMI 21.58 kg/m? Body mass index is 21.58 kg/m?. GENERAL: Pleasant and NAD. HEENT: NCAT, PERRLA, EOMI, Scleral anicteric. Oropharhynx clear with no erythema or exudate. Neck supple, no cervical LAD or thyromegaly. CV: RRR, NL S1/S2, no murmurs. Distal pulses palpable and equal b/l. LUNGS: CTA b/l. Normal percussion and palpation. No W/R/R. Abdomen: + BS, soft, upper abdominal tenderness palpation. non-distended. No hepatosplenomegaly. No mass felt. No rebound or guarding. No hernia. Extremities: No C/C/E. No muscle atrophy. Skin: No skin lesion or breakdown. Lymph: No cervical or supraclavicular LAD. Musculoskeletal: Strength 5/5 in all exts. No joint tenderness or effusions in LEs. Neurologic: A&O x 3, CN II-XII grossly intact. No asterixis. Non-focal. Psych: Normal affect and speech. LABS AND IMAGING: Recent blood work and relevant radiologic and endoscopic studies were reviewed and discussed with the patient. CMP: Recent Labs 10/16/24 0957 10/17/24 0121 NA 138 135* K 3.1* 3.8 CL 104 103 CO2 24 21* BUN 12 10 CREATININE 0.63 0.61 GLUCOSE 233* 336* CALCIUM 8.5 8.3* CBC: Recent Labs 10/15/24 2224 10/16/24 0025 10/16/24 0847 10/16/24 0957 10/17/24 0121 WBC 13.0* -- -- -- 10.8* HGB 13.7 < > 6.7* 13.0 11.9 HCT 41.5 -- -- -- 36.5 PLT 363 -- -- -- 313 < > = values in this interval not displayed. HEPATIC: Recent Labs 10/15/24 2224 AST 14 ALT 12 BILITOT 0.3 ALKPHOS 141 BNP: No results for input(s): BNP in the last 72 hours. LIPASE/AMYLASE: Recent Labs 10/15/24 2224 LIPASE 13 LACTATE: No lab exists for component: LACTA TROPONIN: No results for input(s): TROPONINI in the last 72 hours. LIPIDS: No results for input(s): CHOL, HDL in the last 72 hours. No lab exists for component: LDLCALCU INR: No results for input(s): INR in the last 72 hours. NH3:No results for input(s): AMMONIA (more content not included)... [facility] 10-17-2024 Note Care Management Prog ress Note Short Medical why still here: Diagnostic workup Chart reviewed. Pt admitted to for evaluation and treatment of DKA. Endocrinology consulted and following. Met with pt at bedside, introduced self and explained role. Pt states she lives alone in [place]. Pt states she is mostly IND but daughter's do drive her to doctor's appointments. Pt states she sees Pauline Haed FINISHED CLOTH EXAMINER at [facility]. Pt states she uses cane and walker. Pt states she has insurance and prescription coverage. Pt states she gets meds filled at the [facility] in [place]. Pt did tell this [facility] that she sees wide piece goods inspector but is not real happy with her due to the meds that she is on. She would like to see Psych will in house here. Pt also states she lost her glucometer at home and would like a script for new one along with supplies. updated on pt's requests.pt would also wants to see if she can qualify or get information on [facility] aides. Will continue to follow. Planned Discharge Disposition: Home or Self Care Barriers/Today we still Wait: Administering IV medications, Clinical stability, Diagnostic workup, Symptomatic control Length of Stay (Days): 1 GMLOS: No GMLOS Documented [facility] 10-16-2024 Note Patient declined [facility] cessation counseling. Accepting of handout with contact information for future reference. States she has tapered down significantly since her last admission. [facility] 10-16-2024 Note Attending History an d Physical Admit Date: 10/15/2024 PCP: Donna Kumar DO CHIEF COMPLAINT: Abdominal pain Reason for Admission: DKA History Obtained From: patient HISTORY OF PRESENT ILLNESS: Patient is a 54-year-old female who recently got diagnosed to have pancreatic mass. Patient underwent fine-needle aspiration cytology. Postprocedure patient has been having significant pain and has not been able to eat or drink anything. Patient stated that the pain is in the upper abdominal area radiating to the back. Denies any fever or chills patient sugar has been running high lately and due to pain she has not been able to eat properly and unable to take care of her diabetes. Patient has no prior history of DKA. She denies having any fever or chills. Past Medical History: Medical History[1] Past Surgical History: Surgical History[2] Social History: Social History Socioeconomic History Marital status: Spouse name: Not on file Number of children: Not on file Years of education: Not on file Highest education level: Not on file Occupational History Not on file Tobacco Use Smoking status: Every Day Current packs/day: 1.25 Average packs/day: 1.3 packs/day for 41.6 years (51.9 ttl pk-yrs) Types: Cigarettes Start date: 1983 Passive exposure: Past Smokeless tobacco: Never Tobacco comments: Started at 13, 0.5- 2 PPD, quit during her three pregnancies and one additional quit attempt of 6 months, currently 0.5 PPD. 10/04/24 Vaping Use Vaping status: Some Days Substances: THC, CBD Substance and Sexual Activity Alcohol use: Not Currently Drug use: Yes Types: Marijuana Comment: daily Sexual activity: Not on file Other Topics Concern Not on file Social History Narrative Not on file Social Drivers of Health Financial Resource Strain: Not on file Food Insecurity: No Food Insecurity (10/03/2024) Hunger Vital Sign Worried About Running Out of Food in the Last Year: Never true Ran Out of Food in the Last Year: Never true Transportation Needs: No Transportation Needs (10/03/2024) PRAPARE - Transportation Lack of Transportation (Medical): No Lack of Transportation (Non-Medical): No Physical Activity: Not on file Stress: Not on file Social Connections: Not on file Intimate Partner Violence: Not At Risk (10/03/2024) Humiliation, Afraid, Rape, and Kick questionnaire Fear of Current or Ex-Partner: No Emotionally Abused: No Physically Abused: No Sexually Abused: No Housing Stability: Low Risk (10/03/2024) Housing Stability Vital Sign Unable to Pay for Housing in the Last Year: No Number of Times Moved in the Last Year: 0 Homeless in the Last Year: No Recent Concern: Housing Stability - High Risk (10/03/2024) Housing Stability Vital Sign Unable to Pay for Housing in the Last Year: No Number of Times Moved in the Last Year: 0 Homeless in the Last Year: Yes Family History: Family History[3] Medications Prior to Admission: Current Medications[4] - Medications Reconciliation: Medication were reviewed and verified as accurate with patient. Allergies: Allergies[5] REVIEW OF SYSTEMS: Constitutional: Negative for fever, chills, activity change and unexpected weight change. HEENT: Negative for congestion, postnasal drip and sneezing. Eyes: Negative for itching and visual disturbance. Respiratory: Negative for apnea, cough, choking, chest tightness, shortness of breath, wheezing and stridor. Cardiovascular: Negative for chest pain. Gastrointestinal: Positive for abdominal pain Genitourinary: Negative for dysuria, frequency and flank pain. Musculoskeletal: Negative for myalgias and joint swelling. Skin: Negative for rash. Neurological: Negative for dizziness, tremors, seizures, syncope, facial asymmetry, speech difficulty, weakness, numbness and headaches. Hematological: Negative for adenopathy. Psychiatric/Behavioral: Negative for suicidal ideas, behavioral problems, self-injury and dysphoric mood. Vitals: BP (!) 146/93 (BP Location: Left arm, Patient Position: Lying) Pulse 95 Temp 36.3 ?C (97.4 ?F) (Temporal) Resp 16 Wt 118 lb (53.5 kg) SpO2 100% BMI 21.58 kg/m? BMI Classification: Normal Weight (BMI 18.5-24.9) Pulse Ox: SpO2 Av.5 % Min: 99 % Max: 100 % Supplemental O2: PHYSICAL EXAM: Constitutional: General: Patient is not in acute distress. Appearance: Normal appearance. HENT: Head: Normocephalic and atraumatic. Right Ear: External ear normal. Left Ear: External ear normal. Mouth/Throat: Mouth: Mucous membranes are moist. Pharynx: Oropharynx is clear. Eyes: Extraocular Movements: Extraocular movements intact. Conjunctiva/sclera: Conjunctivae normal. Pupils: Pupils are equal, round, and reactive to light. Cardiovascular: Comments: Tachycardic normal S1-S2, no murmurs noted. Radial pulses 2+ and symmetric. Pulmonary: Effort: Pulmonary effort is normal. No respiratory dis (more content not included)... [facility] 10-16-2024 History and physical note Attending History and Physical Admit Date: 10/15/2024 PCP: Donna Kumar DO CHIEF COMPLAINT: Abdominal pain Reason for Admission: DKA History Obtained From: patient HISTORY OF PRESENT ILLNESS: Patient is a 54-year-old female who recently got diagnosed to have pancreatic mass. Patient underwent fine-needle aspiration cytology. Postprocedure patient has been having significant pain and has not been able to eat or drink anything. Patient stated that the pain is in the upper abdominal area radiating to the back. Denies any fever or chills patient sugar has been running high lately and due to pain she has not been able to eat properly and unable to take care of her diabetes. Patient has no prior history of DKA. She denies having any fever or chills. Past Medical History: Medical History[1] Past Surgical History: Surgical History[2] Social History: Social History Socioeconomic History Marital status: Spouse name: Not on file Number of children: Not on file Years of education: Not on file Highest education level: Not on file Occupational History Not on file Tobacco Use Smoking status: Every Day Current packs/day: 1.25 Average packs/day: 1.3 packs/day for 41.6 years (51.9 ttl pk-yrs) Types: Cigarettes Start date: 1983 Passive exposure: Past Smokeless tobacco: Never Tobacco comments: Started at 13, 0.5- 2 PPD, quit during her three pregnancies and one additional quit attempt of 6 months, currently 0.5 PPD. 10/04/24 Vaping Use Vaping status: Some Days Substances: THC, CBD Substance and Sexual Activity Alcohol use: Not Currently Drug use: Yes Types: Marijuana Comment: daily Sexual activity: Not on file Other Topics Concern Not on file Social History Narrative Not on file Social Drivers of Health Financial Resource Strain: Not on file Food Insecurity: No Food Insecurity (10/03/2024) Hunger Vital Sign Worried About Running Out of Food in the Last Year: Never true Ran Out of Food in the Last Year: Never true Transportation Needs: No Transportation Needs (10/03/2024) PRAPARE - Transportation Lack of Transportation (Medical): No Lack of Transportation (Non-Medical): No Physical Activity: Not on file Stress: Not on file Social Connections: Not on file Intimate Partner Violence: Not At Risk (10/03/2024) Humiliation, Afraid, Rape, and Kick questionnaire Fear of Current or Ex-Partner: No Emotionally Abused: No Physically Abused: No Sexually Abused: No Housing Stability: Low Risk (10/03/2024) Housing Stability Vital Sign Unable to Pay for Housing in the Last Year: No Number of Times Moved in the Last Year: 0 Homeless in the Last Year: No Recent Concern: Housing Stability - High Risk (10/03/2024) Housing Stability Vital Sign Unable to Pay for Housing in the Last Year: No Number of Times Moved in the Last Year: 0 Homeless in the Last Year: Yes Family History: Family History[3] Medications Prior to Admission: Current Medications[4] - Medications Reconciliation: Medication were reviewed and verified as accurate with patient. Allergies: Allergies[5] REVIEW OF SYSTEMS: Constitutional: Negative for fever, chills, activity change and unexpected weight change. HEENT: Negative for congestion, postnasal drip and sneezing. Eyes: Negative for itching and visual disturbance. Respiratory: Negative for apnea, cough, choking, chest tightness, shortness of breath, wheezing and stridor. Cardiovascular: Negative for chest pain. Gastrointestinal: Positive for abdominal pain Genitourinary: Negative for dysuria, frequency and flank pain. Musculoskeletal: Negative for myalgias and joint swelling. Skin: Negative for rash. Neurological: Negative for dizziness, tremors, seizures, syncope, facial asymmetry, speech difficulty, weakness, numbness and headaches. Hematological: Negative for adenopathy. Psychiatric/Behavioral: Negative for suicidal ideas, behavioral problems, self-injury and dysphoric mood. Vitals: BP (!) 146/93 (BP Location: Left arm, Patient Position: Lying) Pulse 95 Temp 36.3 C (97.4 F) (Temporal) Resp 16 Wt 118 lb (53.5 kg) SpO2 100% BMI 21.58 kg/m BMI Classification: Normal Weight (BMI 18.5-24.9) Pulse Ox: SpO2 Av.5 % Min: 99 % Max: 100 % Supplemental O2: PHYSICAL EXAM: Constitutional: General: Patient is not in acute distress. Appearance: Normal appearance. HENT: Head: Normocephalic and atraumatic. Right Ear: External ear normal. Left Ear: External ear normal. Mouth/Throat: Mouth: Mucous membranes are moist. Pharynx: Oropharynx is clear. Eyes: Extraocular Movements: Extraocular movements intact. Conjunctiva/sclera: Conjunctivae normal. Pupils: Pupils are equal, round, and reactive to light. Cardiovascular: Comments: Tachycardic normal S1-S2, no murmurs noted. Radial pulses 2+ and symmetric. Pulmonary: Effort: Pulmonary effort is normal. No respiratory distress. Breath sounds: Normal breath sounds. No stridor. No wheezing or rhonchi. Abdominal: Comments: The abdomen is soft, nondistended, left upper quadrant tenderness. There is no rebound tenderness or guarding. Bowel sounds are normal. Skin: General: Skin is warm and dry. Capillary Refill: Capillary refill takes less than 2 seconds. Coloration: Skin is not jaundiced or pale. Findings: No bruising or erythema. Neurological: General: No focal deficit present. Mental Status: Patient is alert and oriented to person, place, and time. Mental status is at baseline. Cranial Nerves: No cranial nerve deficit. Sensory: No sensory deficit. Motor: No weakness. Coordination: Coordination normal. Psychiatric: Mood and Affect: Mood normal. Musculoskeletal: NO edema DATA: CBC: Recent Labs 10/15/24 2224 10/16/24 0025 WBC 13.0* -- RBC 4.99 -- HGB 13.7 13.3 HCT 41.5 -- MCV 83.2 -- RDW 13.3 -- PLT 363 -- BMP: Recent Labs 10/15/24 2224 NA 132* K 4.2 CL 101 CO2 16* BUN 21 CREATININE 0.99 GLUCOSE 486* CALCIUM 9.6 ANIONGAP 15* LIVER PROFILE: Recent Labs 10/15/24 2224 AST 14 ALT 12 BILITOT 0.3 ALKPHOS 141 PROT 7.2 PT/INR: No results for input(s): PROTIME, INR in the last 72 hours. CARDIAC ENZYMES: No results for input(s): TROPONINI in the last 72 hours. Procalcitonin: No results found for: PROCAL Urine Culture: No results found for this or any previous visit. COVID-19 PCR: No results for input(s): COVID19 in the last 72 hours. I reviewed: [x] laboratory results [x] radiographic results At the time of today's encounter. Pt was advised of the results. Data: (CAT1) Reviewed 3 or more labs/studies ordered by another provider not previously counted (each=1, panels count as 1). (LOW: 2x CAT1 or independent historian MOD: 3x CAT1 or 1x CAT3 EXTENSIVE: 3x CAT1 and 1x CAT3) Assessment Discussed management with the ED provider and agree with hospitalization. Acute, acute on chronic, unstable/uncontrolled chronic problems/diagnoses: DKA Abdominal pain Tachycardia Stable chronic problems affecting care, new non-acute diagnoses: Recently diagnosed pancreatic mass Plan As a result of the above findings & factors, the following mgmt was pursued: - Plan to admit the patient to the medical floor Will initiate DKA leg protocol Will give Tylenol for mild pain and fever, Dilaudid for severe pain Resume rest of medications from home - am labs, replace lytes prn Zofran as needed for nausea vomiting - delirium precautions: increase activity and limit nighttime disturbances - DVT prophylaxis: enoxaparin and encourage ambulation Complexity: Acute illness with systemic symptoms (MOD). Risk: Admission to hospital-level care was considered or occurred (HIGH). Advance Directive: Prior Anticipated Discharge - Date - 10/17/2024 - Location - Home - Pending the following -treatment for DKA Total time spent (which include face to face and non face to face encounters) : 60 minutes. Toxic drug monitoring/narrow therapeutic index drug monitoring : # Drug name : Lovenox # Route administered : Subcutaneous # Method of monitoring : CBC Extended Emergency Contact Information Primary Emergency Contact: NEVILLE BOLTON Mobile Relation: Child Voice Professor needed? No [employer] Puja Wyman : 1970 Primary Care Physician: Donna Kumar DO The patient and/or family/surrogate voluntarily agreed to participate in ACP services. Patient s cognitive capacity: Alert, Orientedx3 Code Status: [x_] [FULL CODE - Continue all advanced life support: CPR,intubation,invasive procedures] [_] [DNR-CCA - DO NOT do CPR, intubation] [_] [DNR-CERTIFIED MEDICINE AIDE - Comfort care only] [_] DNR form [was/was not] signed Summary of discussion: The patient health care POA/ surrogate is the following: Patient. [Condition that instigated the ACP on this DOS, relevant PMH, functional status, goals of care, and whom this was discussed with including names and relationship to the patient, and any relevant advance care documentation discussion] I answered all the patient/family questions that I could within the range and scope of the current medical situation. We discussed the medical conditions, risks, benefits, outcomes, and goals of care at this time for the patient's medical issues at hand in the face of the patient's chronic issues and current presentation. Total time spent: 3 minutes were spent discussing the patient's resuscitation status, advance care planning, and end of life care, with patient and/or family/surrogate. Cyndee Gan MD Division of Hospitalist Medicine [facility] [1] Past Medical History: Diagnosis Date Anxiety Headache Hypertension Neuropathy Non morbid obesity due to excess calories 08/04/2016 Pancreatic abnormality 10/03/2024 Mass; FNA via EUS Reactive depression 08/04/2016 Restless leg syndrome S/P fine needle aspiration 10/03/2024 ENDOSCOPIC ULTRASOUND EXAMINATION Gege Hawkins MD at [facility]; FNA Pancreatic Tail Mass Sleep apnea Tobacco abuse 08/04/2016 [2] Past Surgical History: Procedure Laterality Date ARM SURGERY (HISTORICAL) BACK SURGERY CYST REMOVAL ESOPHAGOSCOPY / EGD N/A 10/03/2024 ESOPHAGOGASTRODUODENOSCOPY, WITH ENDOSCOPIC ULTRASOUND EXAMINATION Gege Hawkins MD at [facility]; FNA Pancreatic Tail Mass EUS (HISTORICAL) N/A 10/03/2024 ESOPHAGOGASTRODUODENOSCOPY, WITH ENDOSCOPIC ULTRASOUND EXAMINATION Gege Hawkins MD at [facility]; FNA Pancreatic Tail Mass HYSTERECTOMY ovaries still there TUBAL LIGATION [3] Family History Problem Relation Name Age of Onset High Blood Pressure Father Diabetes Mother Heart disease Mother Diabetes Father Heart disease Father [4] Current Facility-Administered Medications: lactated ringers bolus 1,000 mL, 1,000 mL, IntraVENous, q1h, Last Rate: 1,000 mL/hr at 10/16/24 0217, 1,000 mL at 10/16/24 0217 AND lactated Ringer's infusion, 500 mL/hr, IntraVENous, Continuous AND dextrose 5 % and sodium chloride 0.45 % infusion, 150 mL/hr, IntraVENous, Continuous PRN AND dextrose 5 % and sodium chloride 0.45 % infusion, 250 mL/hr, IntraVENous, Continuous PRN, Margoth D'Jag, PA-C dextrose 5 % infusion, 100 mL/hr, IntraVENous, PRN, Margoth D'Jag, PA-C dextrose 50 % solution 12.5 g, 12.5 g, IntraVENous, PRN, Margoth D'Jag, PA-C glucagon (human recombinant) injection 1 mg, 1 mg, IntraMUSCular, PRN, Margoth D'Jag, PA-C glucose oral gel 15 g, 15 g, Oral, PRN, Margoth Williamson PA-C Insulin Lispro (Humalog) injection 11 Units, 0.2 Units/kg, SubCUTAneous, q2h OR Insulin Lispro (Humalog) injection 5 Units, 0.1 Units/kg, SubCUTAneous, q2h, Margoth Williamson PA-C No current outpatient medications on file. [5] Allergies Allergen Reactions Hydrocodone Rash Hydrocodone-Acetaminophen Hives and Unknown Tramadol Rash documented in this encounter [facility] 10-15-2024 Emergency department Note Emergency Department Encounter [facility] ED Patient: Puja Wyman : 1970 Date of Evaluation: 10/15/2024 ED Supervising Physician: Wyatt Holman MD I personally evaluated Puja Wyman and made/approved the management plan and take responsibility for the patient management. This will serve as my Supervisory note and shared attestation. I did perform a substantive portion of the visit including all aspects of the Medical Decision Making. I wore appropriate PPE for the entirety of this encounter. In brief, Puja Wyman is a 54 y.o. that presents to the emergency department for evaluation of painful swallowing, upper abdominal pain that radiates into the back near the kidneys (patient indicates bilateral lower back), and intermittent chest pain yesterday and into today. Reports that she has a history of diabetes with poorly controlled blood sugars, blood sugar typically in the 200-250 range. He is unaware of ever having DKA in the past. Recently learned that she had pancreatic cancer during previous admission. Focused exam: Awake, alert, appears uncomfortable but in no acute distress. Skin is warm, dry, intact. Tachycardic with normal heart sounds. Normal respiratory rate and effort. Tender to palpation over the left anterior chest wall with no palpable abnormalities. Overlying skin appears normal. Normal respiratory rate and effort. Normal lung sounds. Abdomen is soft, nondistended, nontender. Extremities unremarkable. No CVA tenderness bilaterally. Brief ED course/MDM: Patient presents for evaluation of of painful swallowing, upper abdominal pain rating to the back, and intermittent chest pain as described in the HPI. Recently diagnosed with pancreatic cancer. Patient was found to have elevated blood glucose. CMP significant for glucose of 46, anion gap of 15, and bicarb of 16. Beta hydroxybutyrate was added and is elevated indicating DKA. Lactic acid levels not elevated. White blood cell count is elevated 13.0 but no other significant arrangements on CBC. EKG per my interpretation shows sinus rhythm with no ST elevation, depression, arrhythmia, ectopy, or abnormal intervals. High-sensitivity troponin is 6. Repeat pending. Minimal suspicion for ACS given these results. Patient admitted for further evaluation and management. We did initiate insulin, hypoglycemia protocol, and IV fluids in the ED. Dilaudid administered for pain control. Diagnostics interpreted by me: CT scan(s) noted tumor burden similar to previous imaging. No evidence of acute abdominal pelvic pathology. EKG; see my interpretation elsewhere in the chart I personally discussed the patient's management with other clinicians: Admitting team BRINA Duffy All diagnostic, treatment, and disposition decisions were made by myself in conjunction with the Resident. I also supervised denson portions of any procedures performed by the Resident. For all further details of the patient's emergency department visit, please see their documentation. (Comment: Please note this report has been produced using speech recognition software and may contain errors related to that system including errors in grammar, punctuation, and spelling, as well as words and phrases that may be inappropriate. If there are any questions or concerns please feel free to contact the dictating provider for clarification.) Wyatt Holman MD Acute Care [facility] Wyatt Holman MD 10/16/24 0203 Emergency Department Encounter [facility] ED Patient: Puja Wyman : 1970 Date of Evaluation: 10/15/2024 ED NELY Provider: YANETH Bahare was supervised by Dr. Holman who independently examined and evaluated the patient. Please see their attestation note for further details. Chief Complaint: Chief Complaint Patient presents with Dysphagia Pt states that she has been having diffuculty swallowing due to pain for the last 3-4 months. Pt states that she was diagnosed with pancreatic cancer about 1 week ago. Reports her doctor is aware of this problem but she is unaware of whether a work up was done for that or not. History of Present Illness: Puja Wyman is a 54 y.o. female with past medical history of pancreatic cancer who presented to the emergency department for evaluation of pain with eating and drinking. States that she has been having a lot of epigastric abdominal pain since Monday, states she ran out of her pain medications, and missed her appointment with the specialist at . Patient states that she is unable to eat and drink because the pain is so bad. Has not been taking her diabetes medications.. Nursing notes were reviewed. Limitations to history: Outside historians: Review of Systems: Positives and pertinent negatives as per HPI. All other systems were reviewed and are acutely negative except as noted. Past History: Medical History[1] Surgical History[2] Social History[3] Medications/Allergies: Current Discharge Medication List CONTINUE these medications which have NOT CHANGED Details cyclobenzaprine (Flexeril) 5 MG tablet Take 5 mg by mouth 2 times daily as needed. gabapentin (Neurontin) 400 MG capsule Take 400 mg by mouth 3 times daily. lisinopril 10 MG tablet Take 10 mg by mouth daily. metoprolol tartrate (Lopressor) 25 MG tablet Take 25 mg by mouth 2 times daily. venlafaxine (Effexor) 50 MG tablet Take 50 mg by mouth. celecoxib (CeleBREX) 100 MG capsule Take 100 mg by mouth 2 times daily. insulin glargine (Lantus) 100 UNIT/ML injection Inject 30 Units under the skin 2 times daily. One dose in the morning and one nightly Insulin Lispro (Humalog) 100 UNIT/ML solution injection Inject 10 Units under the skin 3 times daily (with meals). oxybutynin (Ditropan) 5 MG tablet Take 5 mg by mouth 3 times a day. rOPINIRole (Requip) 1 MG tablet Take 1 mg by mouth. 1 tablet in AM and 2 tablet nightly Allergies[4] Physical Exam: ED Triage Vitals Temp Heart Rate Resp BP 10/15/24 2143 10/15/24 2143 10/15/24214210/15/242142 36.3 C (97.4 F) (!) 135 16 (!) 152/107 SpO2 Temp Source Heart Rate Source Patient Position 10/15/24 2143 10/15/24 2143 10/15/24 2143 10/16/24 0027 99 % Temporal Monitor Lying BP Location FiO2 (%) 10/16/24 0027 -- Left arm Physical Exam Vitals and nursing note reviewed. Constitutional: General: She is not in acute distress. Appearance: She is well-developed. HENT: Head: Normocephalic and atraumatic. Eyes: Conjunctiva/sclera: Conjunctivae normal. Cardiovascular: Rate and Rhythm: Normal rate and regular rhythm. Heart sounds: No murmur heard. Pulmonary: Effort: Pulmonary effort is normal. No respiratory distress. Breath sounds: Normal breath sounds. Abdominal: Palpations: Abdomen is soft. Tenderness: There is abdominal tenderness. Musculoskeletal: General: No swelling. Cervical back: Neck supple. Skin: General: Skin is warm and dry. Capillary Refill: Capillary refill takes less than 2 seconds. Neurological: Mental Status: She is alert. Psychiatric: Mood and Affect: Mood normal. Screenings: Carmen Coma Scale Best Eye Response: Spontaneous Best Verbal Response: Oriented Best Motor Response: Follows commands Carmen Coma Scale Score: 15 Patients symptoms are consistent with sepsis, severe sepsis, or septic shock (If yes use .sepsiscoremeasure): Diagnostics: Labs: Labs Reviewed CBC WITH AUTO DIFFERENTIAL - Abnormal Result Value Auto WBC 13.0 (*) RBC 4.99 Hemoglobin 13.7 Hematocrit 41.5 MCV 83.2 MCH 27.5 MCHC 33.0 RDW 13.3 Platelets 363 MPV 10.0 nRBC 0.0 Neutrophils Relative 61.5 Lymphocytes Relative 27.7 Monocytes Relative 7.5 Eosinophils Relative 1.9 Basophils Relative 1.1 Immature Grans % 0.3 Neutrophils Absolute 8.0 (*) Lymphocytes Absolute 3.6 Monocytes Absolute 1.0 (*) Eosinophils Absolute 0.3 Basophils Absolute 0.1 Immature Grans Absolute 0.0 COMPREHENSIVE METABOLIC PANEL - Abnormal SODIUM 132 (*) POTASSIUM 4.2 CHLORIDE 101 CARBON DIOXIDE 16 (*) ANION GAP 15 (*) UREA NITROGEN 21 CREATININE 0.99 GLUCOSE 486 (*) CALCIUM 9.6 AST (SGOT) 14 ALT 12 ALKALINE PHOSPHATASE 141 ALBUMIN 3.4 (*) BILIRUBIN, TOTAL 0.3 TOTAL PROTEIN 7.2 eGFR 67.5 COMPLETE URINALYSIS WITH REFLEX TO CULTURE - Abnormal Color, Urine Light Yellow Clarity, Urine Clear pH, Urine 5.5 Leukocytes, Urine Negative Nitrite, Urine Negative Protein, Urine Negative Glucose, Urine >1,000 (*) Bilirubin, Urine Negative Ketones, Urine 40 (*) Urobilinogen, Urine Normal Blood, Urine Negative SPECIFIC GRAVITY OF URINE (NUMERIC) >1.030 (*) Narrative: A specimen with <=10 WBC is not consistent with inflammation. This specimen will not reflex to a urine culture. BLOOD GAS, VENOUS - Abnormal pH, Venous 7.323 pCO2, Venous 44.5 pO2, Venous 24.9 HCO3, Venous 22.6 O2 Sat, Venous 41.1 Base Excess, Venous -3.5 (*) Hgb, blood gas 13.3 TCO2, Venous 23.9 Source Of Oxygen None (Room Air) Amount Of Oxygen room air Narrative: Assessment of oxygenation is best done with an arterial blood gas determination. Reference ranges for pO2, bicarbonate, and base excess are for mixed venous blood. Specimens drawn from a peripheral vein will often have higher values. BETA HYDROXYBUTYRATE - Abnormal BETA HYDROXYBUTYRATE 16.7 (*) BASIC METABOLIC PANEL - Abnormal SODIUM 135 (*) POTASSIUM 3.6 CHLORIDE 106 CARBON DIOXIDE 16 (*) UREA NITROGEN 14 CREATININE 0.72 GLUCOSE 279 (*) CALCIUM 9.0 ANION GAP 13 eGFR >90.0 BLOOD GAS, VENOUS - Abnormal pH, Venous 7.360 pCO2, Venous 38.5 pO2, Venous 46.5 HCO3, Venous 21.3 O2 Sat, Venous 80.3 Base Excess, Venous -3.7 (*) Hgb, blood gas 13.6 TCO2, Venous 22.4 (*) Source Of Oxygen None (Room Air) Amount Of Oxygen room air Narrative: Assessment of oxygenation is best done with an arterial blood gas determination. Reference ranges for pO2, bicarbonate, and base excess are for mixed venous blood. Specimens drawn from a peripheral vein will often have higher values. BETA HYDROXYBUTYRATE - Abnormal BETA HYDROXYBUTYRATE 2.9 (*) BASIC METABOLIC PANEL - Abnormal SODIUM 138 POTASSIUM 3.1 (*) CHLORIDE 104 CARBON DIOXIDE 24 UREA NITROGEN 12 CREATININE 0.63 GLUCOSE 233 (*) CALCIUM 8.5 ANION GAP 10 eGFR >90.0 MAGNESIUM - Abnormal MAGNESIUM 1.5 (*) Narrative: Higher values can be expected in females during menses. BLOOD GAS, VENOUS - Abnormal pH, Venous 7.274 (*) pCO2, Venous 26.2 (*) pO2, Venous 22.8 HCO3, Venous 11.9 (*) O2 Sat, Venous 37.2 Base Excess, Venous -13.7 (*) Hgb, blood gas 6.7 (*) TCO2, Venous 12.7 (*) Source Of Oxygen None (Room Air) Amount Of Oxygen 0 Narrative: Assessment of oxygenation is best done with an arterial blood gas determination. Reference ranges for pO2, bicarbonate, and base excess are for mixed venous blood. Specimens drawn from a peripheral vein will often have higher values. HEMOGLOBIN A1C - Abnormal HEMOGLOBIN A1C 13.5 (*) ESTIMATED AVERAGE GLUCOSE 341 Narrative: HbA1c values of 5.7-6.4 percent indicate an increased risk for developing diabetes mellitus. HbA1c values greater than or equal to 6.5 percent are diagnostic of diabetes mellitus. For diagnosis of diabetes in individuals without unequivocal hyperglycemia, results should be confirmed by repeat testing. POCT GLUCOSE METER UNSOLICITED RESULTS - Abnormal Glucose 401 (*) Narrative: [facility] [place] [address] CLIA ID: [id number] POCT GLUCOSE METER UNSOLICITED RESULTS - Abnormal Glucose 243 (*) Narrative: [facility]formed by: [facility] [address] [place] [address] CLIA ID: [id number] POCT GLUCOSE METER UNSOLICITED RESULTS - Abnormal Glucose 103 (*) Narrative: [facility]formed by: [facility] [address] [place] [address] CLIA ID: [id number] POCT GLUCOSE METER UNSOLICITED RESULTS - Abnormal Glucose 205 (*) Narrative: [facility]formed by: [facility] [address] [place] [address] CLIA ID: [id number] POCT GLUCOSE METER UNSOLICITED RESULTS - Abnormal Glucose 277 (*) Narrative: Performed by: [facility] [place], [address] [place] [address] CLIA ID: [id number] LIPASE - Normal LIPASE 13 LACTIC ACID WITH REFLEX - Normal LACTIC ACID 1.0 HIGH SENSITIVITY TROPONIN, SERIAL BASELINE - Normal Troponin HS Serial Baseline 6 HIGH SENSITIVITY TROPONIN, SERIAL, SECOND TEST - Normal 2h Troponin HS (Serial 2nd Troponin) 5 BETA HYDROXYBUTYRATE - Normal BETA HYDROXYBUTYRATE 1.1 MAGNESIUM - Normal MAGNESIUM 1.6 Narrative: Higher values can be expected in females during menses. PHOSPHORUS - Normal PHOSPHORUS 3.1 PHOSPHORUS - Normal PHOSPHORUS 3.3 POCT GLUCOSE METER UNSOLICITED RESULTS - Normal Glucose 98 Narrative: Performed by: Megan Paige, [address] [place] [id number] CLIA ID: [id number] BLOOD GAS, VENOUS pH, Venous 7.321 pCO2, Venous 49.1 pO2, Venous 24.7 HCO3, Venous 24.8 O2 Sat, Venous 40.2 Base Excess, Venous -1.7 Hgb, blood gas 13.0 TCO2, Venous 26.3 Source Of Oxygen None (Room Air) Amount Of Oxygen 0 Narrative: Assessment of oxygenation is best done with an arterial blood gas determination. Reference ranges for pO2, bicarbonate, and base excess are for mixed venous blood. Specimens drawn from a peripheral vein will often have higher values. POCT GLUCOSE METER POCT GLUCOSE METER POCT GLUCOSE METER POCT GLUCOSE METER POCT GLUCOSE METER POCT GLUCOSE METER Radiographs: CT abdomen pelvis w contrast Final Result 1. 5.5 cm solid pancreatic mass. This demonstrates some necrosis. The mass is seen to impress mildly on the posterior wall of the stomach. 2. No hepatic or pancreatic ductal dilatation. 3. Bilateral renal cysts. These require no further imaging. CT PELVIS: 3 mm axial cuts are obtained from the iliac crests through the symphysis pubis with 75 mL Isovue IV contrast. Dose reduction was employed with automated exposure control. The examination is compared to a previous study dated 10/02/2024. FINDINGS: There are nondistended loops of small bowel. Air and stool are identified within the colon to the level of the rectum. There is no evidence of obstruction. The distal ureters and bladder are normal. No free fluid is seen within the pelvis. Sagittal reconstructed images of the spine demonstrate a Grade I/II spondylolisthesis L4 on L5. The slip is approximately 1 cm. The patient is status post L5-S1 fusion. IMPRESSION: 1. 5.5 cm solid pancreatic mass. This demonstrates some necrosis. The mass is seen to impress mildly on the posterior wall of the stomach. 2. No hepatic or pancreatic ductal dilatation. 3. Bilateral renal cysts. These require no further imaging. Report Dictated on Electronically Signed By: Deep Vogel MD Electronically Signed Date/Time: 10/16/2024 12:17 AM EDT Procedures: Procedures EKG: All EKG's are interpreted by the Emergency Department Physician in the absence of a architectural superintendent. Please see Epiphany for interpretation of EKG. Emergency Department Course and Medical Decision Making In brief, Puja Wyman is a 54 y.o. female who presented to the emergency department for evaluation of abdominal pain. Physical exam as above, patient nontoxic in appearance. Vital signs upon arrival to the ED, patient is tachycardic External records reviewed: Patient given IV fluids and pain medications, patient's FNA of the tumor was last week, low suspicion for perforation, but given tachycardia and pain, is a possibility. CT scan was obtained, labs show the patient is hyperglycemic with anion gap, concern for mild DKA, states that she is not taking her insulin. CT scan showed no evidence of any new intra-abdominal abnormalities, there is some necrosis of the pancreatic mass Patient will be admitted for further pain control, and DKA treatment. Puja Wyman and myself have engaged in Shared Decision Making to ensure adequate and appropriate information was provided to Puja Wyman to assist them in choosing a course of treatment based on their own preferences and concerns. MDM elements: Diagnostic tests considered but not performed: Diagnostics interpreted by me: Discussions with other clinicians: Chronic conditions impacting care: Social determinants of health affecting care: . ED Medications managed: Medications glucose oral gel 15 g (has no administration in time range) dextrose 50 % solution 12.5 g (has no administration in time range) glucagon (human recombinant) injection 1 mg (has no administration in time range) dextrose 5 % infusion (has no administration in time range) oxyCODONE (Roxicodone) immediate release tablet 5 mg (5 mg Oral Given 10/16/24 1630) acetaminophen (Tylenol) tablet 650 mg (has no administration in time range) Or acetaminophen (Tylenol) suppository 650 mg (has no administration in time range) ondansetron ODT (Zofran-ODT) disintegrating tablet 4 mg ( Oral See Alternative 10/16/24 1648) Or ondansetron (Zofran) injection 4 mg ( IntraVENous Canceled Entry 10/16/24 1648) enoxaparin (Lovenox) syringe 40 mg (40 mg SubCUTAneous Given 10/16/24 1007) HYDROmorphone (Dilaudid) injection 0.5 mg (0.5 mg IntraVENous Given 10/16/24 1529) naloxone (Narcan) injection 0.4 mg (has no administration in time range) insulin glargine (Lantus) injection 10 Units (has no administration in time range) Insulin Lispro (Humalog) injection 8 Units (8 Units SubCUTAneous Not Given 10/16/24 1650) Insulin Lispro (Humalog) injection 0-12 Units ( SubCUTAneous Not Given 10/16/24 1638) cyclobenzaprine (Flexeril) tablet 5 mg (has no administration in time range) gabapentin (Neurontin) capsule 400 mg (400 mg Oral Given 10/16/24 162) lisinopril tablet 10 mg (10 mg Oral Given 10/16/24 162) metoprolol tartrate (Lopressor) tablet 25 mg (has no administration in time range) trospium (Sanctura) tablet 20 mg (20 mg Oral Given 10/16/24 162) rOPINIRole (Requip) tablet 0.5 mg (0.5 mg Oral Given 10/16/24 162) venlafaxine (Effexor) tablet 50 mg (50 mg Oral Given 10/16/24 1648) hydrALAZINE (Apresoline) injection 10 mg (has no administration in time range) sodium chloride 0.9 % bolus 1,000 mL (0 mL IntraVENous Stopped 10/16/24 0124) HYDROmorphone (Dilaudid) injection 0.5 mg (0.5 mg IntraVENous Given 10/15/24 2230) ondansetron (Zofran) injection 4 mg (4 mg IntraVENous Given 10/15/24 2231) HYDROmorphone (Dilaudid) injection 1 mg (1 mg IntraVENous Given 10/16/24 0026) iopamidol (Isovue-370) 76 % injection 75 mL (75 mL IntraVENous Given 10/16/24 0007) insulin glargine (Lantus) injection 11 Units (11 Units SubCUTAneous Given 10/16/24 0217) Insulin Lispro (Humalog) injection 13 Units (13 Units SubCUTAneous Given 10/16/24 0217) magnesium sulfate IVPB premix 2,000 mg (0 mg IntraVENous Stopped 10/16/24 1543) potassium chloride (Klor-Con) packet 40 mEq (40 mEq Oral Given 10/16/24 1219) potassium chloride CR (Klor-Con M10) ER tablet 40 mEq (40 mEq Oral Given 10/16/24 1348) Prescription drugs considered: Critical Care: None Consults: IP CONSULT TO ENDOCRINOLOGY IP CONSULT TO ONCOLOGY IP CONSULT TO PALLIATIVE CARE FINAL IMPRESSION 1. Diabetic ketoacidosis without coma associated with diabetes mellitus due to underlying condition (HCC) DISPOSITION: Admit 10/16/2024 02:38:56 AM PATIENT REFERRED TO: No follow-up provider specified. DISCHARGE MEDICATIONS: Current Discharge Medication List Margoth Williamson PA-C [facility] [1] Past Medical History: Diagnosis Date Anxiety Arthritis COPD (chronic obstructive pulmonary disease) (HCC) Diabetes mellitus (HCC) Headache Hypertension Mitral valve prolapse Neuropathy Non morbid obesity due to excess calories 08/04/2016 Pancreatic abnormality 10/03/2024 Mass; FNA via EUS Reactive depression 08/04/2016 Restless leg syndrome S/P fine needle aspiration 10/03/2024 ENDOSCOPIC ULTRASOUND EXAMINATION Gege Hawkins MD at [facility]; FNA Pancreatic Tail Mass Sleep apnea Tobacco abuse 08/04/2016 [2] Past Surgical History: Procedure Laterality Date ARM SURGERY (HISTORICAL) BACK SURGERY CYST REMOVAL ESOPHAGOSCOPY / EGD N/A 10/03/2024 ESOPHAGOGASTRODUODENOSCOPY, WITH ENDOSCOPIC ULTRASOUND EXAMINATION Gege Hawkins MD at [facility]; FNA Pancreatic Tail Mass EUS (HISTORICAL) N/A 10/03/2024 ESOPHAGOGASTRODUODENOSCOPY, WITH ENDOSCOPIC ULTRASOUND EXAMINATION Gege Hawkins MD at [facility]; FNA Pancreatic Tail Mass HYSTERECTOMY ovaries still there TUBAL LIGATION [3] Social History Socioeconomic History Marital status: Tobacco Use Smoking status: Every Day Current packs/day: 1.25 Average packs/day: 1.3 packs/day for 41.6 years (51.9 ttl pk-yrs) Types: Cigarettes Start date: 1983 Passive exposure: Past Smokeless tobacco: Never Tobacco comments: Started at 13, 0.5- 2 PPD, quit during her three pregnancies and one additional quit attempt of 6 months, currently 0.5 PPD. 10/04/24 Vaping Use Vaping status: Some Days Substances: THC, CBD Substance and Sexual Activity Alcohol use: Not Currently Drug use: Yes Types: Marijuana Comment: daily Social Drivers of Health Food Insecurity: No Food Insecurity (10/03/2024) Hunger Vital Sign Worried About Running Out of Food in the Last Year: Never true Ran Out of Food in the Last Year: Never true Transportation Needs: No Transportation Needs (10/03/2024) PRAPARE - Transportation Lack of Transportation (Medical): No Lack of Transportation (Non-Medical): No Intimate Partner Violence: Not At Risk (10/03/2024) Humiliation, Afraid, Rape, and Kick questionnaire Fear of Current or Ex-Partner: No Emotionally Abused: No Physically Abused: No Sexually Abused: No Housing Stability: Low Risk (10/03/2024) Housing Stability Vital Sign Unable to Pay for Housing in the Last Year: No Number of Times Moved in the Last Year: 0 Homeless in the Last Year: No Recent Concern: Housing Stability - High Risk (10/03/2024) Housing Stability Vital Sign Unable to Pay for Housing in the Last Year: No Number of Times Moved in the Last Year: 0 Homeless in the Last Year: Yes [4] Allergies Allergen Reactions Hydrocodone Rash Hydrocodone-Acetaminophen Hives and Unknown Tramadol Rash Margoth Williamson PA-C 10/16/24 1711 Cosigned by Wyatt Holman MD at 10/17/2024 6:53 AM EDT documented in this encounter [facility] 10-04-2024 Note Pt ok to discharge h ome per MD. Given medication script for oxy 5mg and discharge instructions/education. Daughter to transport pt home. VS wnl, IV removed prior to pt leaving hospital. [facility] 10-04-2024 Note Progress Note SUBJECTIVE: No acute events overnight. S/p EUS yesterday. Obtaining CT chest today. Medications @MEDCMED@ OBJECTIVE VITALS: BP 140/98 (BP Location: Left arm, Patient Position: Lying) Pulse 82 Temp 36.6 ?C (97.8 ?F) (Temporal) Resp 18 Ht 5' 2 (1.575 m) Wt 118 lb (53.5 kg) SpO2 98% BMI 21.58 kg/m? TEMPERATURE: Current - Temp: 36.6 ?C (97.8 ?F); Max - Temp Av.6 ?C (97.9 ?F) Min: 36.3 ?C (97.4 ?F) Max: 36.8 ?C (98.2 ?F) RESPIRATIONS RANGE: Resp Av.6 Min: 16 Max: 18 PULSE RANGE: Pulse Av.1 Min: 61 Max: 82 BLOOD PRESSURE RANGE: Systolic (24hrs), Av , Min:125 , Max:157 ; Diastolic (24hrs), Av, Min:72, Max:98 PULSE OXIMETRY RANGE: SpO2 Av.9 % Min: 97 % Max: 99 % 24HR INTAKE/OUTPUT: Intake/Output Summary (Last 24 hours) at 10/04/2024 1353 Last data filed at 10/04/2024 1100 Gross per 24 hour Intake 480 ml Output -- Net 480 ml GENERAL: Pleasant and NAD. HEENT: NCAT, PERRLA, EOMI, Scleral anicteric. CV: RRR, NL S1/S2, no murmurs. LUNGS: CTA b/l. No W/R/R. Abdomen: + BS, soft, non-tender and non-distended. No rebound or guarding. No hernia. Neurologic: A&O x 3, Non-focal. Psych: Normal affect and speech. Data Recent blood work, radiologic study and endoscopic study were reviewed with the patient. CBC: Recent Labs 10/02/24230810/04/24 0553 WBC 9.1 9.0 HGB 11.6* 11.3* HCT 34.7* 34.8* PLT 298 248 HEPATIC: Recent Labs 10/02/24230810/04/24 0553 AST 14 24 ALT 15 9 BILITOT 0.2 0.2 ALKPHOS 124 136 LIPASE/AMYLASE: No results for input(s): AMYLASE, LIPASE in the last 72 hours. LACTATE: No lab exists for component: LACTA BNP: Recent Labs 10/02/24 230 BNP 382* INR: Recent Labs 10/03/24 1042 INR 1.0 ASSESSMENT AND PLAN Pancreatic mass - incidentally found on CT, increased back/abdominal pain, 10lbs weight loss in the past month, elevated CEA, normal LFT's, EUS with preliminary carcinoma present, MRI without liver lesions Gastroparesis - history of, unclear if she has followed with GI in the past - plan to follow-up with hepatobiliary surgery through next week - OK to be discharged [facility] 10-04-2024 Note [facility] Smoking Cessation Progress Note Smoking Cessation Intervention Session type: initial Session length: 30 minutes Smoking History: Started at 13, 0.5- 2 PPD, quit during her three pregnancies and one additional quit attempt of 6 months, currently 0.5 PPD Pack Years: 51.9 How important is it to the patient to quit? (0-not important, 10-extremely important): 10 How confident is the patient that they can quit? (0-not confident, 10-extremely confident): 10 Stage of Change: Pre-contemplation Fagerstrom Test for Nicotine Dependence Score: 5 Reasons to quit smoking identified: [x]Yes []No Triggers for smoking identified: [x]Yes []No Quit strategies for smoking identified: [x]Yes []No Nicotine withdrawal symptoms reviewed: [x]Yes []No Smoking urge distractions discussed: [x]Yes []No Request for nicotine withdrawal medication: []Yes [x]No If yes, provider notified: []Yes []No Ready to choose a quit date in the next 30 days: []Yes [x]No Additional Comments: Met with patient at bedside. She is pleasant and willing to discuss her smoking history and cessation with me. Smoking cessation education with contact information explained and given to patient. [facility] 10-04-2024 Note Discharge Summary Puja Wyman : 1970 ADMIT DATE: 10/02/2024 DISCHARGE DATE: 10/04/2024 PRIMARY CARE PHYSICIAN: Donna Kumar VISIT STATUS: Admission CODE STATUS: Full Code DISCHARGE DIAGNOSES: Principal Problem: Pancreatic mass Active Problems: Severe malnutrition (CMS/HCC) (HCC) Pancreatic mass - CT abdomen, MRI abdomen, EUS and FNA and CT chest done >> findings as below. 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 Discussed case with pancreatic surgeon / Bao from for consultation, he would call patient on [facility] to be evaluated outpatient next week. No need for hospital to hospital transfer. DM type 2 with hyperglycemia - on insulin regimen- continue Smoking HOSPITAL COURSE: Details as above. Presented with abdominal pain. Workup including CT abdomen, MRI abdomen, CT chest done for workup> findings as below. EUS and FNAC was done , findings as below, prelim report suggestive of undifferentiated carcinoma. No hepatobiliary surgery available in [facility]. Discussed case with Dr. Gore, no need to transfer patient to inpatient, would evaluate the patient next week as an outpatient. Discharged home in stable condition. SIGNIFICANT DIAGNOSTIC STUDIES: CT chest: TECHNIQUE: Axial computed tomography images of the chest without intravenous contrast. Sagittal and coronal reformatted images were created and reviewed. This CT exam was performed using one or more of the following dose reduction techniques: automated exposure control, adjustment of the mA and/or kV according to patient size, and/or use of iterative reconstruction technique. COMPARISON: Correlations made to CT abdomen pelvis 10/02/2024. FINDINGS: Limitations: Lack of IV contrast limits evaluation to some extent. Lungs and pleural spaces: Mild emphysema most pronounced towards the apices where there is pleural parenchymal scarring. No consolidation or pleural effusions. No pneumothorax. Punctate 3 mm nodule right lung apex, series 14 image 128. Additional punctate 3 mm nodule also right upper lobe on image 111. Mediastinum: Heart size is within normal limits. Thoracic aorta and pulmonary trunk are normal in caliber. Trace coronary artery calcifications. A few prominent mediastinal lymph nodes without suspicious bulky adenopathy. Bones/joints: Degenerative spondylosis in the visualized spine. Soft tissues: No significant abnormality. Upper abdomen: Partial visualization of heterogeneous lesion pancreatic body/tail with mild adjacent stranding. IMPRESSION: 1. A few punctate pulmonary nodules right upper lobe measuring up to 3 mm. Fleischner Society Guidelines for low-risk or high-risk patients recommend that one should consider chest CT at 12 months due to the morphology and/or location of this nodule. 2. Mild emphysema most pronounced towards the apices where there is pleural parenchymal scarring. No consolidation or pleural effusions. No pneumothorax. 3. Partial visualization of heterogeneous pancreatic lesion. MRI abdomen: Narrative & Impression Patient Name: PUJA WYMAN : 1970 Exam Date/Time: 10/03/2024 13:15 Procedure: MR ABDOMEN W AND WO CONTRAST Ordering Provider: FLOOD PRAMOD Reason For Exam: Pancreatic cancer, staging; pancreatic ccancer EXAM: MR Abdomen Without and With Intravenous Contrast CLINICAL INDICATION: Pancreatic cancer, staging; pancreatic cancer. TECHNIQUE: Multiplanar magnetic resonance images of the abdomen without and with intravenous contrast. COMPARISON: CT 10/02/2024. FINDINGS: Limitations: Motion artifact on multiple sequences. Liver: Liver is normal in size and contour. One or two punctate nonenhancing T2 hyperintense cysts. No discrete liver lesion identified. Gallbladder and bile ducts: Gallbladder appears mildly distended. No intrahepatic or extrahepatic biliary ductal dilatation. Pancreas: Complex solid cystic lesion involving the pancreatic tail demonstrating thick irregular peripheral enhancement as well as irregular internal septal enhancement. This arises off the superior pancreatic body/tail with abutment of the lesser curvature of the proximal stomach as well as posterior medial spleen. There is also abutment of the left adrenal gland. This measures at least 5.8 x 4.8 cm on axial sequence 1401 image 12. On coronal sequences this measures 5.8 cm. There is associated restricted diffusion. There is also adjacent stranding/fluid localized to the left upper quadrant. Remaining portions of the pancreas appear within normal limits without pancreatic ductal dilatation. Spleen: Normal in size. Focal scarring involving the superior medial spleen. Adrenals: No adrenal mass or nodule. Kidneys and ureters: Kidneys symmetrically enhance without hydronephrosis. Simple cyst right kidney and additional punctate nonenhancing c (more content not included)... [facility] 10-04-2024 Note Care Management Prog ress Note Short Medical why still here: Patient remains on 4S today for pancreatic mass. Patient admitted for abdominal pain, reports CP and constipation in ER. CT A/P showing 5 cm pancreatic mass. GS consulted and seen w/ endoscopic US/FNA complete. Tolerating CLD. MRI/staging pending. Bowel function +. Plan to be evaluated by Hepatobiliary surgery. Planned Discharge Disposition: Plan for tertiary transfer for hepatobiliary surgery consult. Awaiting acceptance and transfer. Barriers/Today we still Wait: Need accepting hospital, provider, and bed. Length of Stay (Days): 1 GMLOS: No GMLOS Documented [facility] 10-04-2024 Note Hospitalist Progress Note 10/04/2024 Subjective: Admit Date: 10/02/2024 PCP: Donna Kumar DO Room#: B4-687/[id number] B BRIEF HOSPITAL COURSE: Presented with abdominal and back pain. Admitted for abdominal mass. MRI abdomen done. Endoscopic ultrasound and FNA done on Interval History: Seen and examined. Comfortable and tolerating diet. Still with abdominal pain Afebrile Discussed endoscopic USG and MRI abdomen findings with patient and possible transfer to for surgical eval and she agrees. Call placed to transfer center, waiting for acceptance. Adult diet Regular 24HR INTAKE/OUTPUT: Intake/Output Summary (Last 24 hours) at 10/04/2024 1057 Last data filed at 10/03/2024 1740 Gross per 24 hour Intake 120 ml Output -- Net 120 ml Past Medical History: Medical History[1] LABS: CBC: Recent Labs 10/02/24230810/04/24 0553 WBC 9.1 9.0 RBC 4.17 4.12 HGB 11.6* 11.3* HCT 34.7* 34.8* MCV 83.2 84.5 RDW 13.4 13.3 PLT 298 248 BMP: Recent Labs 10/02/24230810/04/24 0553 NA 138 136 K 3.4* 4.0 CL 105 104 CO2 24 20* BUN 12 8* CREATININE 0.69 0.67 GLUCOSE 297* 357* CALCIUM 9.0 8.5 ANIONGAP 9 12 LIVER PROFILE: Recent Labs 10/02/24230810/04/24 0553 AST 14 24 ALT 15 9 BILITOT 0.2 0.2 ALKPHOS 124 136 PROT 6.3* 6.3* PT/INR: Recent Labs 10/03/24 1042 PROTIME 10.9 INR 1.0 CARDIAC ENZYMES: No results for input(s): TROPONINI in the last 72 hours. Procalcitonin: No results found for: PROCAL COVID-19 PCR: No results for input(s): COVID19 in the last 72 hours. Objective: Vitals: BP 140/98 (BP Location: Left arm, Patient Position: Lying) Pulse 82 Temp 36.6 ?C (97.8 ?F) (Temporal) Resp 18 Ht 5' 2 (1.575 m) Wt 118 lb (53.5 kg) SpO2 98% BMI 21.58 kg/m? Pulse Ox: SpO2 Av.9 % Min: 97 % Max: 99 % Supplemental O2: Physical Exam Constitutional: Appearance: Normal appearance. Cardiovascular: Rate and Rhythm: Normal rate and regular rhythm. Heart sounds: Normal heart sounds. Pulmonary: Effort: Pulmonary effort is normal. Breath sounds: Normal breath sounds. Abdominal: General: Bowel sounds are normal. Palpations: Abdomen is soft. Neurological: General: No focal deficit present. Mental Status: She is alert and oriented to person, place, and time. Medications: Scheduled PRN Scheduled Meds[2] PRN Meds[3] Continuous Continuous Meds[4] Assessment Data: (CAT1) Reviewed 1 notes from different specialty or health system (each=1). (LOW: 2x CAT1 or independent historian MOD: 3x CAT1 or 1x CAT3 EXTENSIVE: 3x CAT1 and 1x CAT3) Acute, acute on chronic, unstable/uncontrolled chronic problems/diagnoses: Pancreatic mass - MRI pancreas and endoscopic USG on 10/03 and FNAC. Prelim cytology undifferentiated carcinoma. DM type 2 with hyperglycemia Smoking Stable chronic problems affecting care, new non-acute diagnoses: Plan As a result of the above findings & factors, the following mgmt was pursued: - add Protonix - Lovenox for DVT prophylaxis. - plan for transfer to for pancreatic surgery evaluation. 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 No Ray Flood MD Division of Hospitalist Medicine [employer] [1] Past Medical History: Diagnosis Date Anxiety Headache Hypertension Neuropathy Non morbid obesity due to excess calories 08/04/2016 Pancreatic abnormality 10/03/2024 Mass; FNA via EUS Reactive depression 08/04/2016 Restless leg syndrome S/P fine needle aspiration 10/03/2024 ENDOSCOPIC ULTRASOUND EXAMINATION Gege Hawkins MD at [facility]; FNA Pancreatic Tail Mass Sleep apnea Tobacco abuse 08/04/2016 [2] insulin lispro, 0-12 Units, SubCUTAneous, TID WC And insulin lispro, 0-12 Units, SubCUTAneous, Nightly sodium chloride 0.9%, 10 mL, IntraVENous, 2 times per day [3] PRN medications: acetaminophen OR acetaminophen, dextrose, dextrose, glucagon (rDNA), glucose, HYDROmorphone, naloxone, ondansetron ODT OR ondansetron, polyethylene glycol (PEG) 3350, sodium chloride, sodium chloride 0.9% [4] [facility] 10-04-2024 Note [facility] Department of Surgery Progress Note PATIENT NAME: Puja Wyman : 1970 ATTENDING PHYSICIAN: Cyndee Gan MD;Ray Quintana* ADMIT DATE: 10/02/2024 TODAY'S DATE: 10/04/2024 SUBJECTIVE Patient doing ok. Stable. Pain remains. Tolerating CLD. Poor spirits overall but we discussed positive aspects today of her current diagnosis. She is waiting for MRI results and further staging. Voiding well and endorsing flatus. Having BMs OBJECTIVE VITALS: BP 140/98 (BP Location: Left arm, Patient Position: Lying) Pulse 82 Temp 36.6 ?C (97.8 ?F) (Temporal) Resp 18 Ht 5' 2 (1.575 m) Wt 118 lb (53.5 kg) SpO2 98% BMI 21.58 kg/m? PHYSICAL EXAM: CONSTITUTIONAL: NAD, A&O X3. EYES: No scleral icterus CHEST: Resp effort easy and unlabored ABDOMEN: soft, distended, minimally ttp epigastrium and L hemiabdomen, Peritoneal signs absent. SKIN: Warm and dry INTAKE/OUTPUT: I/O last 3 completed shifts: In: 120 (2.3 mL/kg) [P.O.:120] Out: - (0 mL/kg) Weight: 52.2 kg No intake/output data recorded. Data Recent Labs 10/02/24230810/04/24 0553 WBC 9.1 9.0 HGB 11.6* 11.3* HCT 34.7* 34.8* PLT 298 248 Recent Labs 10/02/24230810/04/24 0553 NA 138 136 K 3.4* 4.0 CL 105 104 CO2 24 20* BUN 12 8* CREATININE 0.69 0.67 GLUCOSE 297* 357* Recent Labs 10/02/24230810/04/24 0553 AST 14 24 ALT 15 9 BILITOT 0.2 0.2 ALKPHOS 124 136 Current Inpatient Medications Current Medications[1] ASSESSMENT AND PLAN 54 y.o. female presenting with abdominal pain and found to have a 5 cm distal pancreatic mass concerning for malignancy We discussed the workup to this point and findings at length. Certainly malignancy is expected given the appearance and findings. Patient will require ultimate evaluation by hepatobiliary surgery for consideration of distal pancreatectomy and splenectomy. This will need to be done through a tertiary center. Agree with staging studies to help determine resectability and evaluate for any evidence of metastasis. Awaiting MRI abdomen and will also require CT scan of the chest. The CT of the chest does not need to be contrasted. MRI will suffice for most appropriate abdominal staging. Greatly appreciate gastroenterology evaluation and endoscopic ultrasound with FNA 10/03. Medical management per primary team Recommend tertiary center evaluation, possibly outpatient, given [facility]'s lacking hepatobiliary surgery coverage. Please call if questions arise otherwise. Moderate MDM. I spent 35 minutes total on the day of the visit obtaining history, reviewing imaging and laboratory results, performing a physical exam and providing patient education and counseling. Department of Surgery [1] Current Facility-Administered Medications: acetaminophen (Tylenol) tablet 650 mg, 650 mg, Oral, q6h PRN OR acetaminophen (Tylenol) suppository 650 mg, 650 mg, Rectal, q6h PRN, Cyndee Gan MD dextrose 5 % infusion, 100 mL/hr, IntraVENous, PRN, Ray Flood MD dextrose 50 % solution 12.5 g, 12.5 g, IntraVENous, PRN, Ray Flood MD glucagon (human recombinant) injection 1 mg, 1 mg, IntraMUSCular, PRN, Ray Flood MD glucose oral gel 15 g, 15 g, Oral, PRN, Ray Flood MD HYDROmorphone (Dilaudid) injection 0.25 mg, 0.25 mg, IntraVENous, q4h PRN, Ray Flood MD, 0.25 mg at 10/04/24 0902 Insulin Lispro (Humalog) injection 0-12 Units, 0-12 Units, SubCUTAneous, TID WC, 8 Units at 10/04/24 0901 AND Insulin Lispro (Humalog) injection 0-12 Units, 0-12 Units, SubCUTAneous, Nightly, Cyndee Gan MD, 12 Units at 10/03/242053 naloxone (Narcan) injection 0.4 mg, 0.4 mg, IntraVENous, q5 min PRN, Ray Flood MD ondansetron ODT (Zofran-ODT) disintegrating tablet 4 mg, 4 mg, Oral, q8h PRN OR ondansetron (Zofran) injection 4 mg, 4 mg, IntraVENous, q6h PRN, Cyndee Gan MD polyethylene glycol (PEG) 3350 (Miralax) packet 17 g, 17 g, Oral, Daily PRN, Cyndee Gan MD sodium chloride 0.9 % infusion, 5-250 mL/hr, IntraVENous, PRN, Cyndee Gan MD sodium chloride 0.9% (NS) flush 10 mL, 10 mL, IntraVENous, 2 times per day, Cyndee Gan MD, 10 mL at 10/04/24901 sodium chloride 0.9% (NS) flush 10 mL, 10 mL, IntraVENous, PRN, Cyndee Gan MD [facility] 10-03-2024 Note Patient: Puja ferrari Procedure Summary Date: 10/03/24 Room / Location: [place] [address] / [facility] Gastroenterology Anesthesia Start: 1457 Anesthesia Stop: 153 Procedure: ESOPHAGOGASTRODUODENOSCOPY, WITH ENDOSCOPIC ULTRASOUND EXAMINATION Diagnosis: Pancreatic mass Providers: Gege Hawkins MD Responsible Provider: Abdoulaye Jaquez APRN - PER Anesthesia Type: TIVA ASA Status: 3 Anesthesia Type: TIVA Vitals Value Taken Time BP 144/88 10/03/24 16:03 Temp 36.3 ?C (97.4 ?F) 10/03/24 15:33 Pulse 67 10/03/24 16:03 Resp 18 10/03/24 16:03 SpO2 97 % 10/03/24 16:03 Anesthesia Post Evaluation Patient location during evaluation: PACU Patient participation: complete - patient participated Level of consciousness: alert and awake Pain management: satisfactory to patient Airway patency: patent Dental Injury: no Cardiovascular status: acceptable, blood pressure returned to baseline and hemodynamically stable Respiratory status: acceptable and spontaneous ventilation Hydration status: euvolemic Nausea/Vomiting: controlled No notable events documented. Patient can be discharged once all PACU criteria has been met. [facility] 10-03-2024 Note Patient: Puja ferrari Procedure Summary Date: 10/03/24 Room / Location: [facility] / [facility] Gastroenterology Anesthesia Start: 1457 Anesthesia Stop: 153 Procedure: ESOPHAGOGASTRODUODENOSCOPY, WITH ENDOSCOPIC ULTRASOUND EXAMINATION Diagnosis: Pancreatic mass Providers: Gege Hawkins MD Responsible Provider: BRANDY Menon CRNA Anesthesia Type: TIVA ASA Status: 3 Anesthesia Type: TIVA Vitals Value Taken Time BP 144/88 10/03/24 16:03 Temp 36.3 ?C (97.4 ?F) 10/03/24 15:33 Pulse 67 10/03/24 16:03 Resp 18 10/03/24 16:03 SpO2 97 % 10/03/24 16:03 Anesthesia Post Evaluation Patient participation: complete - patient participated Regional recovery expected within 48 hours: complete Level of consciousness: alert and awake Pain management: satisfactory to patient Multimodal analgesia pain management approach Airway patency: patent Two or more strategies used to mitigate risk of obstructive sleep apnea Respiratory status: acceptable Cardiovascular status: acceptable Hydration status: acceptable No notable events documented. MIPS #430 PONV Patient did not receive an inhalational anesthetic (XX430) MIPS # 424 Perioperative Temperature Management Anesthesia time was less than 60 minutes (4256F) MIPS #477 Multimodal Pain Management Not emergent case MIPS #404 Anesthesiology Smoking Abstinence The patient is not a current smoker (e.g. cigarette, cigar, pipe, e-cigarette/vaping/marijuana) If no stop here (XX404) I completed my handoff to the receiving clinician during which we: 1. Identified the patient 2. Identified the responsible provider 3. Reviewed the pertinent medical history 4. Discussed the surgical course 5. Reviewed intra-op anesthesia management and issues during anesthesia 6. Set expectations for post-procedure period 7. Allowed opportunity for questions and acknowledgement of understanding. [facility] 10-03-2024 Note POST ENDOSCOPY PROCE DURE TRANSFER REPORT Procedure completed: EGD w/EUS Findings: Pancreatic Tail Mass Specimens obtained: Fine Needle Aspiration Bx Medications administered: Propofol & Lidocaine Additional Info: No adverse events or complications. See Dr Hawkins's notes for more information. For additional Questions please call Endoscopy at [phone]. Thank You! [facility] 10-03-2024 Note Report given to RN 4 S post EUS procedure. [facility] 10-03-2024 Note Patient: Puja ferrari Procedure Information Anesthesia Start Date/Time: 10/03/241456 Procedure: ESOPHAGOGASTRODUODENOSCOPY, WITH ENDOSCOPIC ULTRASOUND EXAMINATION Location: [place] [address] / [facility] Gastroenterology Providers: Gege Hawkins MD Relevant Problems Cardio (+) Hypertension Neuro/Psych (+) Anxiety (+) Reactive depression Past Medical History: Past Medical History: No date: Anxiety No date: Headache No date: Hypertension No date: Neuropathy 08/04/2016: Non morbid obesity due to excess calories 08/04/2016: Reactive depression No date: Restless leg syndrome No date: Sleep apnea 08/04/2016: Tobacco abuse Past Surgical History: Past Surgical History: No date: ARM SURGERY (HISTORICAL) No date: BACK SURGERY No date: CYST REMOVAL No date: HYSTERECTOMY Comment: ovaries still there No date: TUBAL LIGATION Social History: TOBACCO: reports that she has been smoking cigarettes. She has never used smokeless tobacco. ETOH: reports that she does not currently use alcohol. Social History Substance and Sexual Activity Drug Use Yes Types: Marijuana Comment: daily Family History: Family History[1] Screening: Hysterectomy Clinical information reviewed: Tobacco Allergies Meds Med Hx Surg Hx Fam Hx Soc Hx Physical Exam Airway Mallampati: II TM distance: >3 FB Neck ROM: full Mouth Open: normal Cardiovascular Dental (+) edentulous Pulmonary Abdominal Anesthesia Plan Any family history or previous problems with anesthesia no We discussed risks, benefits, alternatives and likelihood of success with the Patient. ASA 3 TIVA Any family history or previous problems with anesthesia noUse of blood products discussed with who consented to blood products. The patient is not a current smoker. patient is NPO appropriate BRODERICK Screening Labs: Lab Results Component Value Date WBC 9.1 10/02/2024 HGB 11.6 (L) 10/02/2024 HCT 34.7 (L) 10/02/2024 MCV 83.2 10/02/2024 PLT 298 10/02/2024 Lab Results Component Value Date NA 138 10/02/2024 K 3.4 (L) 10/02/2024 CL 105 10/02/2024 CO2 24 10/02/2024 BUN 12 10/02/2024 CREATININE 0.69 10/02/2024 GLUCOSE 297 (H) 10/02/2024 CALCIUM 9.0 10/02/2024 PROT 6.3 (L) 10/02/2024 ALKPHOS 124 10/02/2024 AST 14 10/02/2024 ALT 15 10/02/2024 EGFR >90.0 10/02/2024 Pain Score: 7 No echocardiogram results found for the past 14 days 10/02/24 ECG 12-LEAD 10/02/2024 11:29 PM (Final) Impression Sinus rhythm Consider right atrial enlargement Electronically Signed On 10-02-2024 23:29:02 EDT by Lisa Castorena Signed by: Lisa Castorena MD on 10/02/2024 11:29 PM Equipment Requests: Additional Equipment Requests [1] Family History Problem Relation Name Age of Onset High Blood Pressure Father Diabetes Mother Heart disease Mother Diabetes Father Heart disease Father [facility] 10-03-2024 Note [facility] Patient Name: Puja Wyman Procedure Date: 10/03/2024 2:39 PM Gender: Female Date of : 1970 Age: 54 Admit Type: Outpatient Note Status: Finalized Endoscopist: Gege Hawkins MD, [id number] Procedure: Upper EUS Indications: Suspected mass in pancreas on CT scan Patient presented with worsening epigastric and LUQ abdominal pain with 10 lb weight loss. History of gastroparesis and had previously lost close to 100lbs due to ongoing symptoms of nausea/vomiting and decreased appetite. CT on admission showed a 5.6 pancreatic mass in the body/tail abutting the stomach. No family history of pancreatic cancer. Findings: ENDOSCOPIC FINDING: : The examined esophagus was normal. There is no endoscopic evidence of Davies's esophagus, bleeding, esophagitis, stenosis, ulcerations or varices in the entire esophagus. The Z-line was regular and was found 36 cm from the incisors. Diffuse mildly erythematous mucosa without bleeding was found in the stomach. The exam of the stomach was otherwise normal. There is no endoscopic evidence of bleeding, ulceration or varices in the stomach. The examined duodenum was normal. ENDOSONOGRAPHIC FINDING: : A round mass was identified in the pancreatic tail. The mass was hypoechoic. The mass measured 56 mm by 48 mm in maximal cross-sectional diameter. The endosonographic borders were well-defined. An intact interface was seen between the mass and the adjacent structures suggesting a lack of invasion. The remainder of the pancreas was examined. The endosonographic appearance of parenchyma and the upstream pancreatic duct indicated that the remainder of the pancreas was unremarkable. Fine needle aspiration for cytology was performed. Color Doppler imaging was utilized prior to needle puncture to confirm a lack of significant vascular structures within the needle path. Three passes were made with the 22 gauge needle using a transgastric approach. A stylet was used. A fitness and wellness director was present and performed a preliminary cytologic examination. Preliminary cytology is suspicious for an undifferentiated carcinoma (final results are pending). Verification of patient identification for the specimen was done. Estimated blood loss was minimal. A lesion was found in the left lobe of the liver. The lesion was hyperechoic. The lesion measured 9 mm by 9 mm in maximal cross-sectional diameter. Visualized portions of the spleen, left adrenal gland, left kidney, gallbladder and biliary system were normal on ultrasound examination. A few benign-appearing lymph nodes were visualized in the peripancreatic region. The nodes were round, hypoechoic and had well defined margins. Impression: - Normal esophagus. - Z-line regular, 36 cm from the incisors. - Mildly erythematous mucosa in the stomach. - Normal examined duodenum. - A 56 mm by 50 mm mass was identified in the pancreatic tail. Tissue was obtained from this exam. The preliminary diagnosis is suggestive of an carcinoma. Fine needle biopsy was performed. - A small hyperechoic lesion was found in the left lobe of the liver. The lesion measured 9 mm by 9 mm. - A few benign lymph nodes were visualized in the peripancreatic region. - Visualized portions of the spleen, left adrenal gland, left kidney, gallbladder and biliary system were normal on ultrasound examination. Recommendation: - The patient will be observed post-procedure, until all discharge criteria are met. - Return patient to hospital rob for ongoing care. - Observe patient's clinical course following today's procedure with therapeutic intervention. - Watch for complications post-procedure, including fevers, infection, bleeding and perforation. - Resume regular diet today. - Continue present medications. - Await final cytology results. - Recommend liver MRI and chest CT to complete imaging staging. - Get CA 19-9 and CEA - Will need referral to Surgery and Oncology - The findings and recommendations were discussed with the patient. - The signs and symptoms of potential delayed complications were discussed with the patient. - Patient has a contact number available for emergencies. Referring MD: Donna Kumar DO, Josué Cullen MD Medicines: Monitored Anesthesia Care Procedure: Pre-Anesthesia Assessment: - Prior to the procedure, a History and Physical was performed, and patient medications and allergies were reviewed. The patient's tolerance of previous anesthesia was also reviewed. The risks and benefits of the procedure and the sedation options and risks were discussed with the patient. All questions were answered, and informed consent was obtained. Prior Anticoagulants: The patient has taken no anticoagulant or antiplatelet agents. ASA Grade Assessment: III - A patient with severe systemic disease. After reviewing (more content not included)... [facility] 10-03-2024 Note GI CONSULTATION Patient: Puja Wyman : 1970 Primary Care Physician: Donna Kumar DO Consults CHIEF COMPLAINT: pancreatic mass HISTORY OF PRESENT ILLNESS: 54 yo female with PMH as below whom GI is consulted for pancreatic mass. Presented to the hospital with worsening abdominal/back pain over the past several weeks. Notes a 10lbs weight loss in the past month. History of gastroparesis and had previously lost close to 100lbs due to ongoing symptoms of nausea/vomiting and decreased appetite. CT on admission showed a 5.6 pancreatic mass in the body/tail abutting the stomach. No family history of pancreatic cancer. Hgb 11.6, normal LFT's, INR normal, CEA 46.2, CA 19-9 pending. PAST MEDICAL HISTORY: Medical History[1] PAST SURGICAL HISTORY: Surgical History[2] FAMILY HISTORY: Family History[3] SOCIAL HISTORY: TOBACCO: reports that she has been smoking cigarettes. She has never used smokeless tobacco. ETOH: reports current alcohol use. DRUGS: reports current drug use. Drug: Marijuana. Medications: Prior to Admission medications Not on File @MEDED@ ALLERGIES: Allergies[4] REVIEW OF SYSTEMS: No fever, chills, or sweats. Normal appetite and weight. No GARCIA, visual disturbance, eye pain, jaundice, sore throat or mouth ulcers. No skin rash or itching. No CP, SOB, BLUM, cough or wheeze. No urinary frequency, urgency, hematuria, or dysuria. No myalgia, arthralgia, or joint swelling. No weakness, numbness, or confusion. GI per HPI. No polyuria, polydipsia, heat or cold intolerance. PHYSICAL EXAM: VS: BP (!) 141/84 (BP Location: Left arm, Patient Position: Lying) Pulse 66 Temp 37.1 ?C (98.7 ?F) (Temporal) Resp 18 Ht 5' 2 (1.575 m) Wt 115 lb (52.2 kg) SpO2 99% BMI 21.03 kg/m? Body mass index is 21.03 kg/m?. GENERAL: Pleasant and NAD. HEENT: NCAT, PERRLA, EOMI, Scleral anicteric. CV: RRR, NL S1/S2, no murmurs. LUNGS: CTA b/l. No W/R/R. Abdomen: + BS, soft, non-tender and non-distended. No rebound or guarding. No hernia. Neurologic: A&O x 3, Non-focal. Psych: Normal affect and speech. LABS AND IMAGING: Recent blood work and relevant radiologic and endoscopic studies were reviewed and discussed with the patient. Old records have not been requested. CBC: Recent Labs 10/02/24 2309 WBC 9.1 HGB 11.6* HCT 34.7* PLT 298 HEPATIC: Recent Labs 10/02/24 2309 AST 14 ALT 15 BILITOT 0.2 ALKPHOS 124 LIPASE/AMYLASE: No results for input(s): AMYLASE, LIPASE in the last 72 hours. LACTATE: No lab exists for component: LACTA BNP: Recent Labs 10/02/24 2309 BNP 382* INR: Recent Labs 10/03/24 1042 INR 1.0 POCT glucose meter Result Date: 10/03/2024 Performed by: Megan Pagie, [address] [place] [address] [place] [address] CLIA ID: [id number] XR chest 1 view Result Date: 10/03/2024 Patient Name: PUJA WYMAN : 1970 Exam Date/Time: 10/03/2024 01:09 Procedure: XR CHEST 1 VIEW Ordering Provider: WALL AMY Reason For Exam: PAIN AP CHEST X-RAY CLINICAL INDICATION: PAIN TECHNIQUE: AP portable x-ray of the chest. COMPARISON: 05/17/2013 FINDINGS: Heart/Mediastinum: Within normal limits Lungs: No consolidation or pleural effusion. Bones: Unremarkable No evidence of an acute cardiopulmonary abnormality. Report Dictated on Electronically Signed By: Vinny Edgar MD Electronically Signed Date/Time: 10/03/2024 1:[address] abdomen pelvis wo IV contrast Result Date: 10/03/2024 [facility] : 1970 [id number] Exam Date/Time: 10/02/2024 23:07 Procedure: CT ABDOMEN PELVIS WO IV CONTRAST Ordering Provider: WALL AMY Reason For Exam: Flank pain, kidney stone suspected; left EXAMINATION: CT ABDOMEN PELVIS WO IV CONTRAST CLINICAL HISTORY: Flank pain, kidney stone suspected; left COMPARISON: None TECHNIQUE: CT of the abdomen and pelvis without contrast. Dose reduction was employed with automated exposure control. FINDINGS: Included images of the lower thorax: No focal lung consolidation or pleural effusion. Hepatobiliary: Unremarkable liver without biliary dilation evident. Pancreas: Mass in the distal body and tail the pancreas measuring approximately 5.6 x 4.9 x 5.5 cm. The superior margin of the mass indents the stomach. Spleen: Unremarkable Adrenal Glands: Hyperechoic mass above abuts the left adrenal gland. Kidneys andureters: No hydronephrosis or nephrolithiasis. A 2 cm right renal cyst is most likely simple and does not require follow-up. Abdominal vasculature: Atherosclerotic wall calcifications are present without aneurysm. GI tract: No evidence of obstruction. Colonic diverticulosis is present without evidence for diverticulitis. Peritoneum and retroperitoneum: No free fluid or free air is noted. Lymph Nodes: No abdominal lymphadenopathy is (more content not included)... [facility] 10-03-2024 Note Attending History an d Physical Admit Date: 10/02/2024 PCP: Donna Kumar DO CHIEF COMPLAINT: Chest pain Reason for Admission: Pancreatic mass, hyperglycemia History Obtained From: patient, ER provider HISTORY OF PRESENT ILLNESS: Puja is a 54 y.o. female with past medical history significant for hypertension, sleep apnea, restless leg syndrome, headache. Patient presented to the emergency room with complaint of diffuse pain in the back chest and shoulder. Patient is also feeling constipated. Patient evidently had only 1 bowel movement last 3 weeks. Denied any blood in the stool however patient has not been feeling good. Her overall appetite has gone down due to pain and constipation. Patient is having difficulty breathing states that the pain gets worse when she breathes or talk. She occasionally also gets lightheaded. She denies any blood in stool no urinary symptoms no cough congestion or sputum production. Patient was evaluated in the emergency room was found to have elevated blood sugar and suspected pancreatic mass. Past Medical History: Medical History[1] Past Surgical History: Surgical History[2] Social History: Social History Socioeconomic History Marital status: Spouse name: Not on file Number of children: Not on file Years of education: Not on file Highest education level: Not on file Occupational History Not on file Tobacco Use Smoking status: Every Day Current packs/day: 0.50 Types: Cigarettes Smokeless tobacco: Never Substance and Sexual Activity Alcohol use: Yes Drug use: Yes Types: Marijuana Sexual activity: Not on file Other Topics Concern Not on file Social History Narrative Not on file Social Drivers of Health Financial Resource Strain: Not on file Food Insecurity: Not on file Transportation Needs: Not on file Physical Activity: Not on file Stress: Not on file Social Connections: Not on file Intimate Partner Violence: Not on file Housing Stability: Not on file Family History: Family History[3] Medications Prior to Admission: Current Medications[4] - Medications Reconciliation: Medication were reviewed and verified as accurate with patient. Allergies: Allergies[5] REVIEW OF SYSTEMS: Constitutional: Negative for fever, chills, activity change and unexpected weight change. Positive for generalized weakness, mild loss of appetite HEENT: Negative for congestion, postnasal drip and sneezing. Eyes: Negative for itching and visual disturbance. Respiratory: Negative for apnea, cough, choking, chest tightness, shortness of breath, wheezing and stridor. Cardiovascular: Negative for chest pain. Gastrointestinal: Negative for nausea, vomiting, abdominal pain, diarrhea and blood in stool. Positive for constipation Genitourinary: Negative for dysuria, frequency and flank pain. Musculoskeletal: Positive for diffuse pain Skin: Negative for rash. Neurological: Negative for dizziness, tremors, seizures, syncope, facial asymmetry, speech difficulty, weakness, numbness and headaches. Hematological: Negative for adenopathy. Psychiatric/Behavioral: Negative for suicidal ideas, behavioral problems, self-injury and dysphoric mood. Vitals: BP (!) 176/99 Pulse 70 Temp 36.7 ?C (98 ?F) (Temporal) Resp 14 Ht 5' 2 (1.575 m) Wt 115 lb (52.2 kg) SpO2 99% BMI 21.03 kg/m? BMI Classification: Normal Weight (BMI 18.5-24.9) Pulse Ox: SpO2 Av % Min: 99 % Max: 99 % Supplemental O2: PHYSICAL EXAM: Constitutional: General: Patient is not in acute distress. Appearance: Normal appearance. HENT: Head: Normocephalic and atraumatic. Right Ear: External ear normal. Left Ear: External ear normal. Mouth/Throat: Mouth: Mucous membranes are moist. Pharynx: Oropharynx is clear. Eyes: Extraocular Movements: Extraocular movements intact. Conjunctiva/sclera: Conjunctivae normal. Pupils: Pupils are equal, round, and reactive to light. Cardiovascular: Comments: Regular rate and rhythm, normal S1-S2, no murmurs noted. Radial pulses 2+ and symmetric. Pulmonary: Effort: Pulmonary effort is normal. No respiratory distress. Breath sounds: Normal breath sounds. No stridor. No wheezing or rhonchi. Abdominal: Comments: The abdomen is soft, nondistended and nontender. There is no rebound tenderness or guarding. Bowel sounds are normal. Skin: General: Skin is warm and dry. Capillary Refill: Capillary refill takes less than 2 seconds. Coloration: Skin is not jaundiced or pale. Findings: No bruising or erythema. Neurological: General: No focal deficit present. Mental Status: Patient is alert and oriented to person, place, and time. Mental status is at baseline. Cranial Nerves: No cranial nerve deficit. Sensory: No sensory deficit. Motor: No weakness. Coordination: Coordination normal. Psychiatric: Mood and Affect: Mood normal. Musculoskeletal: NO edema DATA: CBC: Recent Labs (more content not included)... [facility] 05-17-2024 Note HNO ID: [id number] Author: ISAMAR HE PA-C Service: ? Author Type: Physician Junior Sales Representative Type: Progress Notes Filed: 05/17/2024 13:53 Note Text: This note was created using [employer]. Vicente Wyman is a 54 year old female. Patient is a 54-year-old female who complains of fever, chills, body aches, ear pain, sore throat and burning cough that she has been experiencing for the past 2 days. Patient denies episodes of wheezing and has no history of asthma or COPD. Patient does smoke cigarettes. Patient explains that she typically does receive the flu vaccine every year, however she did not do so this year. Review of Systems Constitutional: Positive for chills and fever. HENT: Positive for ear pain and sore throat. Respiratory: Positive for cough. Musculoskeletal: Positive for myalgias. All other systems reviewed and are negative. Objective BP 135/93 Pulse 113 Temp 37.5 ?C (99.5 ?F) Resp 18 Wt 57 kg (125 lb 10.6 oz) LMP (LMP Unknown) SpO2 97% BMI 22.98 kg/m? Physical Exam Vitals and nursing note reviewed. Constitutional: Appearance: Normal appearance. She is normal weight. HENT: Head: Normocephalic and atraumatic. Right Ear: Tympanic membrane, ear canal and external ear normal. Left Ear: Tympanic membrane, ear canal and external ear normal. Nose: Nose normal. Mouth/Throat: Mouth: Mucous membranes are moist. Pharynx: Oropharynx is clear. Eyes: Extraocular Movements: Extraocular movements intact. Conjunctiva/sclera: Conjunctivae normal. Pupils: Pupils are equal, round, and reactive to light. Cardiovascular: Rate and Rhythm: Normal rate and regular rhythm. Pulses: Normal pulses. Heart sounds: Normal heart sounds. Pulmonary: Effort: Pulmonary effort is normal. Breath sounds: Normal breath sounds. Musculoskeletal: Cervical back: Normal range of motion and neck supple. Skin: General: Skin is warm and dry. Capillary Refill: Capillary refill takes less than 2 seconds. Neurological: General: No focal deficit present. Mental Status: She is alert and oriented to person, place, and time. Psychiatric: Mood and Affect: Mood normal. Behavior: Behavior normal. Thought Content: Thought content normal. Judgment: Judgment normal. Assessment and Plan Physical exam findings as noted above. Rapid strep test is negative. Patient was provided with prescriptions for Tamiflu 75 mg and Tessalon 100 mg. Supportive care instructions were discussed and the patient verbalizes good understanding of same. CLINICAL IMPRESSION: Influenza ASSESSMENT/PLAN: 1. Sore throat - ICD9: 462, ICD10: J02.9 (primary diagnosis) - STREP A MOLECULAR (POC) 2. Influenza - ICD9: 487.1, ICD10: J11.1 - OSELTAMIVIR 75 MG CAPSULE - BENZONATATE 100 MG CAPSULE MDM Amount and/or Complexity of Data Reviewed Clinical lab tests: ordered and reviewed Risk of Complications, Morbidity, and/or Mortality Presenting problems: low Diagnostic procedures: low Management options: zelda He PA-C [facility] 05-17-2024 History of Present illness Narrative This note was created using [employer]. Vicente Wyman is a 54 year old female. Patient is a 54-year-old female who complains of fever, chills, body aches, ear pain, sore throat and burning cough that she has been experiencing for the past 2 days. Patient denies episodes of wheezing and has no history of asthma or COPD. Patient does smoke cigarettes. Patient explains that she typically does receive the flu vaccine every year, however she did not do so this year. Review of Systems Constitutional: Positive for chills and fever. HENT: Positive for ear pain and sore throat. Respiratory: Positive for cough. Musculoskeletal: Positive for myalgias. All other systems reviewed and are negative. Objective BP 135/93 Pulse 113 Temp 37.5 C (99.5 F) Resp 18 Wt 57 kg (125 lb 10.6 oz) LMP (LMP Unknown) SpO2 97% BMI 22.98 kg/m Physical Exam Vitals and nursing note reviewed. Constitutional: Appearance: Normal appearance. She is normal weight. HENT: Head: Normocephalic and atraumatic. Right Ear: Tympanic membrane, ear canal and external ear normal. Left Ear: Tympanic membrane, ear canal and external ear normal. Nose: Nose normal. Mouth/Throat: Mouth: Mucous membranes are moist. Pharynx: Oropharynx is clear. Eyes: Extraocular Movements: Extraocular movements intact. Conjunctiva/sclera: Conjunctivae normal. Pupils: Pupils are equal, round, and reactive to light. Cardiovascular: Rate and Rhythm: Normal rate and regular rhythm. Pulses: Normal pulses. Heart sounds: Normal heart sounds. Pulmonary: Effort: Pulmonary effort is normal. Breath sounds: Normal breath sounds. Musculoskeletal: Cervical back: Normal range of motion and neck supple. Skin: General: Skin is warm and dry. Capillary Refill: Capillary refill takes less than 2 seconds. Neurological: General: No focal deficit present. Mental Status: She is alert and oriented to person, place, and time. Psychiatric: Mood and Affect: Mood normal. Behavior: Behavior normal. Thought Content: Thought content normal. Judgment: Judgment normal. Assessment and Plan Physical exam findings as noted above. Rapid strep test is negative. Patient was provided with prescriptions for Tamiflu 75 mg and Tessalon 100 mg. Supportive care instructions were discussed and the patient verbalizes good understanding of same. CLINICAL IMPRESSION: Influenza ASSESSMENT/PLAN: 1. Sore throat - ICD9: 462, ICD10: J02.9 (primary diagnosis) - STREP A MOLECULAR (POC) 2. Influenza - ICD9: 487.1, ICD10: J11.1 - OSELTAMIVIR 75 MG CAPSULE - BENZONATATE 100 MG CAPSULE MDM Amount and/or Complexity of Data Reviewed Clinical lab tests: ordered and reviewed Risk of Complications, Morbidity, and/or Mortality Presenting problems: low Diagnostic procedures: low Management options: low Isamar He PA-C documented in this encounter [facility] 07-24-2023 Hospital Discharge instructions Pearl Orlando PA-C - 07/24/2023 10:08 PM EDT You were seen for hand injury. X-ray did not show any broken bones or dislocation, but noted chronic arthritic changes. Symptoms should improve over the next week with rest, ice, elevation and Tylenol/Motrin. Follow-up with your PCP. Return to the ED for new, worsening, concerning symptoms documented in this encounter [facility] 07-24-2023 Emergency department Note Pt states was helping move a mattress, hand was under it, and something shifted. It got crushed between mattress and box spring, family climbed on mattress to see what was wrong. Pt complaints of 8/10. States pain is now shooting up her arm. Difficulty moving last knuckle on middle finger. Pt splinted finger, wrapped hand applied ice and came to ER for eval. documented in this encounter [facility] 07-24-2023 Emergency department Triage note Pt states was helping move a mattress, hand was under it, and something shifted. It got crushed between mattress and box [place], family climbed on mattress to see what was wrong. Pt complaints of 10/06. States pain is now shooting up her arm. Difficulty moving last knuckle on middle finger. Pt splinted finger, wrapped hand applied ice and came to ER for eval. [facility] 09-04-2022 Miscellaneous Notes Patient identified by name and date of . Patient was advised of + urine culture. She had gone to ER and was given cefdinir for her symptoms. Sheree Alston APRN.[employer] documented in this encounter [facility] 09-03-2022 Discharge summary Note Date/Time September 03, 2022 12:08am [facility] Medical Records Department [address] [place] [id number] Emergency Department Summary 09/03/22 MR#: [id number] Acct: [id number] Name: PUJA WYMAN Rep #:[id number] 01 : 1970 52 From: Mikel Fernandez PCP: ELAINE Whiting Status:REG ER Location: ED HPI History of Present Illness Chief Complaint: Other, Pain/Inj Narrative Narrative: Patient here with friend sent over from urgent care. Intermittent left flank pain for 2 days wraps around her abdomen at times. No nausea or vomiting. States decreased urine output states only urinated once since yesterday. Denieshistory of kidney failure. Denies swelling. Denies history of kidney stones. 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 History of anxiety. States she does not take all her medications. She is on Celebrex and gabapentin for her neck. Denies fevers or chills. Went to urgent care states pain started to the right side. No trauma. No pain down her legs. No loss of bowel or bladdercontrol. Prior similar symptoms: No PFSH PFSH Home Medications cefuroxime axetil 500 mg tablet 500 mg PO BID #14 tabs 09/03/22 [Rx Last Taken Unknown] Allergy/AdvReac Type Severity Reaction Status Date / Time acetaminophen [From Vicodin] Allergy Rash Verified 09/02/22 23:52 hydrocodone [From Vicodin] Allergy Rash Verified 09/02/22 23:52 soap Allergy Hives Verified 09/02/22 23:52 tramadol Allergy Rash Verified 09/02/22 23:52 Social History Smoking Status: Current every day smoker tobacco type: cigarettes ROS ROS ED Constitutional Constitutional ED: Denies chills, fever(s) or sweats Eyes Eyes: Denies change in vision ENT ENT ED: Denies dysphagia or sore throat Cardiovascular Cardiovascular: Denies chest pain, leg edema, palpitations or racing heartbeat Respiratory/Chest Respiratory/Chest: Denies cough, dyspnea or dyspnea on exertion Gastrointestinal Gastrointestinal: Denies abdominal pain, diarrhea, nausea or vomiting Genitourinary Genitourinary ED: Reports other Details: Decreased urine output ; Denies dysuria, hematuria or urinary frequency Musculoskeletal Musculoskeletal: Reports back pain; Denies extremity pain or neck pain Integumentary Denies rash or wounds Neurologic Neurologic: Denies headache(s), paresthesias or weakness EXAM Physical Exam Const Vital Signs: 09/02/22 23:52 09/03/22 00:06 Temperature 97.3 F L Temperature Source Temporal Pulse Rate 103 H Respiratory Rate 18 Respiratory Effort Normal Non-Labored Blood Pressure 156/104 H Blood Pressure Mean 121 Pulse Ox 99 Positive well nourished and well developed General Appearance ED: well developed and NAD HEENT Reports moist mucous membranes normocephalic and atraumatic Eyes PERRL, EOMs intact bilaterally and conjunctivae normal General Eye ED: Yes normal appearance of both eyes Neck no lymphadenopathy and supple General: Negative for tenderness Chest Wall Chest: Negative for tenderness Resp normal respiratory effort and normal air movement Effort and Inspection: symmetric chest movement; Negative for respiratory distress Cardio regular rate, regular rhythm and no murmurs Peripheral Pulses: pulses 2+ throughout GI normal to inspection, nondistended, normoactive bowel sounds and non-tender Palpation: Negative for guarding or rebound tenderness present Back/Spine no CVA tenderness and no thoracic nor lumbar tenderness Back/Spine Narrative: Healed previous scar lower lumbar, no CVA tenderness, no rash. Extremity normal to inspection General Extremety ED: Negative for edema or tenderness General Extremity: Negative for edema Neuro oriented x3 and no sensory deficits noted Sensorium / Orientation: awake and alert Skin no rashes or lesions noted and no wounds MDM MDM MDM Narrative Medical decision making narrative: Interventions / MDM: Differential diagnosis: ESCOBAR, UTI, kidney stones Diagnosis considered but do not suspect: N/A My EKG interpretation: N/A Imaging independently reviewed and interpreted by myself: CT abdomen pelvis: No obstructive uropathy. External documents reviewed: N/A Test considered but not ordered:N/A ED course: Patient declines any pain medications currently. We will start IV fluids we will check labs and urine. CT flank ordered for further evaluation. 0115: Patient requested privacy, had her friend stepped out. 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 She does not feel any threats at the home. CT scan interpreted by myself shows no acute process, no obstructive uropathy. Normal kidney function with a creatinine 0.87. White count 11.9 no left shift. Urine did not nitrites along with leukocytes. Urine culture sent. She is covered Rocephin IV antibiotic, will start Toradol which she agrees. Discussed complicated UTI coverage. Discussed monitoring for rash for shingles. Re-evaluation: 0225: Patient feeling much better she still states she is sleepy. Pains controlled. Status post antibiotics. Prescription cefuroxime sent to her pharmacy should continue Celebrex. Outpatient follow-up with return precautions. All questions were answered. Disposition discussed with patient/family/significant other: Patient Case discussed with consulting clinician: N/A This note was generated with Dragon dictation software. It may contain incorrectwords, spelling, and punctuation that were not noted in checking the note beforesigning. Lab Data Labs: Laboratory Results - last 24 hr 09/03/22 00:19 WBC 11.9 H RBC 4.74 Hgb 14.1 Hct 43.5 MCV 91.8 MCH 29.7 MCHC 32.4 RDW Std Deviation 42.2 RDW Coeff of Tay 12.6 Plt Count 341 MPV 9.5 Immature Gran % (Auto) 0.300 Neut % (Auto) 60.2 Lymph % (Auto) 28.7 Emmet % (Auto) 9.5 Eos % (Auto) 0.8 Baso % (Auto) 0.5 Absolute Neuts (auto) 7.1 Absolute Lymphs (auto) 3.40 Nucleated RBC % 0 Sodium 137 Potassium 3.6 Chloride 105 Carbon Dioxide 24.0 Anion Gap 8 BUN 12 Creatinine 0.87 Estim Creat Clear Calc 59.15 Est GFR (MDRD) Af Amer 88 Est GFR (MDRD) Non-Af 72 BUN/Creatinine Ratio 13.8 Glucose 210 H Calcium 9.2 Urine Color Yellow Urine Clarity Clear Urine pH 5.0 Ur Specific [place] 1.025 Urine Protein 15 H Urine Glucose (UA) Normal Urine Ketones Negative Urine Occult Blood 10 H Urine Nitrite Positive H Urine Bilirubin Negative Urine Urobilinogen Normal Ur Leukocyte Esterase 25 H Urine RBC 0-5 SEEN Urine WBC 0-5 SEEN Ur Squamous Epith Cells 0 SEEN Calcium Oxalate Crystal 1+ Urine Bacteria 3+ Urine Mucus 0 SEEN Radiography Diagnostic Testing: Clinical Impression(s) from Imaging Studies Abdomen/Pelvis CT 09/03/22 00:04 IMPRESSION: 1. Nonspecific findings. 2. No urinary tract stones or hydronephrosis. 3. Hysterectomy. Nonvisualized appendix. 4. Moderate stool in the proximal half of the colon. Moderate sigmoid diverticulosis. No evidence of diverticulitis. 5. Postoperative spine changes and L4 spondylolisthesis. Electronically Signed: Sarita Simmons MD at 1:59 EDT , Discharge Plan Triage Chief Complaint: Other, Pain/Inj ED Provider: Mikel Downs Dx/Rx/DC Orders Clinical Impression: Acute flank pain, Complicated urinary tract infection, Renal cyst, right Instructions: ED Pyelonephritis, Female (Adult) Prescriptions: New cefuroxime axetil 500 mg tablet 500 mg PO BID Qty: 14 0RF Primary Care Provider: Mavis Griffin Referrals: Care Physician,No Primary [Non-Staff] - Mavis Griffin, FINISHED CLOTH EXAMINER-C [Primary Care Provider] - 1 Week if not improving Activity Restrictions/Additional Instructions: Urine with noted infection. Creatinine needing 0.87. White count 11.9. Glucose 210. CT scan abdomen pelvis was negative for kidney stones. Noted 2.1 cm right renal cyst. Status post Rocephin IV. Take and finish your antibiotic as prescribed. Continue your Celebrex. Follow-up with your doctor. Return if worsening symptoms. Disposition Disposition: Home, Self Care What to do if you have Problems For any increased pain, shortness of breath, bleeding, nausea or vomiting, chestpain, or any unexpected problems, contact your Primary Care Provider. Call [facility] ([phone]) or report to the closest Emergency Room. Call 911 if necessary. 09/03/22227 <Electronically signed by Mikel Fernandez> Cosigner Signature (if applicable): CC: FINISHED CLOTH EXAMINER-C Mavis Griffin ~ Signed [facility] Work Phone: [phone] 191-324207-07-2023 History of Present illness Narrative* Deep Bella APRN.[employer] O[employer] - 09/02/2022 1:38 PM EDT Subjective HPI Nontoxic-appearing female presents urgent care chief complaint urinary complaint. Duration of symptoms 2 weeks. Associated symptoms difficulty with urinating back pain. Patient states has had some difficulty with voiding. Has noticed some discomfort in her back. Describes pain as spastic. This is ac companied with some nausea and vomiting. Symptoms has worsened over the last few days. Presents today for evaluation. Denies any fever cough chest pain shortness of breath current abdominal pain. Past medical history prescription medication use allergies reviewed. BP 136/88 Pulse 90 Temp 37.1 C (98.8 F) (Temporal) Resp 18 Wt 64.9 kg (143 lb) LMP (LMP Unknown) SpO2 99% .Patient presents with: Urinary Problem: Pt reported urinary frequency, low back pain x2 wks. History reviewed. No pertinent past medical history. History reviewed. No pertinent surgical history. ALLERGIES Soap, Hydrocodone, Acetaminophen, Hydrocodone-Acetaminophen, and Tramadol MEDICATIONS amitriptyline (ELAVIL) 25 mg tablet metoprolol tartrate, short acting, (LOPRESSOR) 50 mg tablet Take 50 mg by mouth twice daily. rOPINIRole (REQUIP) 1 mg tablet Take 1 mg by mouth. aspirin, enteric coated (ASPIRIN, ENTERIC COATED) 81 mg EC tablet Take 81 mg by mouth. celecoxib (CELEBREX) 100 mg capsule Take 100 mg by mouth twice daily. cholecalciferol (VITAMIN D3) 1,000 unit tab tablet Take 1,000 Units by mouth. dicyclomine (BENTYL) 10 mg capsule Take 10 mg by mouth. glimepiride (AMARYL) 4 mg tablet Take 4 mg by mouth. omeprazole (PRILOSEC) 20 mg capsule take 1 capsule by mouth twice a day , 30 MINUTES BEFORE MORNINGMEAL, NEEDED potassium chloride 20 mEq TbER Take 1 tablet by mouth twice daily. OZEMPIC 1 mg/dose (4 mg/3 mL) pen DIAL AND INJECT 1MG subcutaneously every week vitamin E, dl,tocopheryl acet, (VITAMIN E, DL, ACETATE,) 180 mg (400 unit) capsule Take 180 mg by mouth once daily. History reviewed. No pertinent family history. Review of Systems Constitutional: Negative for chills, fever and malaise/fatigue. HENT: Negative for congestion, ear discharge, ear pain, sinus pain and sore throat. Eyes: Negative for blurred vision, pain, discharge and redness. Respiratory: Negative for cough, hemoptysis, sputum production, shortness of breath, wheezing and stridor. Cardiovascular: Negative for chest pain. Gastrointestinal: Negative for abdominal pain, diarrhea, nausea and vomiting. Genitourinary: Positive for flank pain and hematuria. Negative for dysuria, frequency and urgency. Musculoskeletal: Negative for myalgias. Skin: Negative for itching and rash. Neurological: Negative for dizziness and headaches. Objective Physical Exam Constitutional: General: She is not in acute distress. Appearance: She is not toxic-appearing. HENT: Head: Normocephalic. Nose: Nose normal. Eyes: Pupils: Pupils are equal, round, and reactive to light. Cardiovascular: Rate and Rhythm: Normal rate. Pulmonary: Effort: Pulmonary effort is normal. No respiratory distress. Abdominal: General: There is no distension. Tenderness: There is no abdominal tenderness. There is no right CVA tenderness, left CVA tendernessor guarding. Musculoskeletal: Cervical back: Normal range of motion. Skin: General: Skin is warm and dry. Neurological: General: No focal deficit present. Mental Status: She is alert. ASSESSMENT/PLAN: 1. Urinary frequency - ICD9: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 (after last modification) on Mon10/22/24 at 1700, Low Dose Correction Algorithm Glucose: Dose: LESS than 149 No Insulin 150-199 1 Unit 200-249 2 Units 250-299 3 Units 300-349 4 Units 350-400 5 Units Above 400 6 Units 1805 (Given - Provider: Nereida Larsen, [place]) 0743 (Given - Provider: Nereida Larsen, [place])1206 (Given - Provider: Nereida Larsen, [place])1653 (Given - Provider: Nereida Larsen, [place]) Insulin Lispro (Humalog) injection 12 Units (CANCELED) 12 Units, SubCUTAneous, 3 times daily with meals, First dose (after last modification) on Mon10/21/24 at 1200 1226 (Given - Provider: Kailee Martinez RN)1721 (Not Given - Provider: Kailee Martinez, [place] - Reason: See Provider Order) Insulin Lispro (Humalog) injection 12 Units (CANCELED) 12 Units, SubCUTAneous, 3 times daily with meals, First dose (after last modification) on Mon10/22/24 at 1700 1805 (Given - Provider: Nereidanicole Larsen RN) 0743 (Given - Provider: Nereida Larsen RN)1206 (Given - Provider: Nereida Larsen RN) Insulin Lispro (Humalog) injection 14 Units 14 Units, SubCUTAneous, 3 times daily with meals, First dose (after last modification) on Mon10/23/24 at 1700 1653 (Given - Provider: Nereida Larsen RN) Insulin Lispro (Humalog) injection 4 Units (CANCELED) 4 Units, SubCUTAneous, 3 times daily with meals, First dose (after last modification) on Mon10/21/24 at 1715 1901 (Given - Provider: Kailee Martinez RN) 0852 (Given - Provider: Nereida Larsen RN)1229 (Given - Provider: Nereida Larsen RN) lisinopril tablet 10 mg 10 mg, Oral, Daily, First dose on Mon10/16/24 at 1600 0953 (Given - Provider: Kailee Martinez RN) 0850 (Given - Provider: Nereida Larsen RN) 0742 (Given - Provider: Nereida Larsen RN) lurasidone (Latuda) tablet 20 mg 20 mg, Oral, Daily with breakfast, First dose on Mon10/18/24 at 0800 1010 (Given - Provider: Kailee Martinez RN - Comment: workflow) 0853 (Given - Provider: Nereida Larsen RN) 0742 (Given - Provider: Nereida Larsen RN) metoprolol tartrate (Lopressor) tablet 25 mg 25 mg, Oral, 2 times daily, First dose on Mon10/16/24 at 2100 0953 (Given - Provider: Kailee Martinez RN)2002 (Given - Provider: Pearl Fernández RN) 0850 (Given - Provider: Nereida Larsen, [place])210 (Given - Provider: Pearl Fernández RN) 0742 (Given - Provider: Nereida Larsen RN) nicotine (Nicoderm, Step 2) 14 MG/24HR patch 1 patch(Linked Group 2) 1 patch, TransDERmal, Administer over 24 Hours, Daily, First dose on Mon10/20/24 at 1430, For 42 days, Apply new patch to nonhairy, clean, dry skin on the upper body or upper outer arm. Rotate patch sites. Notify Pharmacy if patient or provider prefers patch to be removed at bedtime and replaced in the morning. 0953 (Medication Applied - Provider: Kailee Martinez RN)0955 (Medication Removed - Provider: Kailee Martinez RN) 0850 (Medication Removed - Provider: Nereida Larsen, [place])0852 (Medication Applied - Provider: Nereida Larsen, RN) 0742 (Medication Removed - Provider: Nereida Larsen, [place])0743 (Medication Applied - Provider: Nereida Larsen, [place])1736 (Due: Medication Removed - Provider: Automatic Discharge Provider - Comment: Time automatically adjusted from order being discontinued) nicotine (Nicoderm, Step 3) 7 MG/24HR patch 1 patch(Linked Group 2) 1 patch, TransDERmal, Administer over 24 Hours, Daily, First dose on 12/01/24 at 0900, For 14 days, Apply new patch to nonhairy, clean, dry skin on the upper body or upper outer arm. Rotate patch sites. Notify Pharmacy if patient or provider prefers patch to be removed at bedtime and replaced in the morning. polyethylene glycol (PEG) 3350 (Miralax) packet 17 g 17 g, Oral, Daily, First dose (after last modification) on 10/21/24 at 0915 0954 (Given - Provider: Kailee Martinez RN) 0851 (Given - Provider: Nereida Larsen, [place]) 0743 (Given - Provider: Nereida Larsen, [place]) rOPINIRole (Requip) tablet 1 mg 1 mg, Oral, Daily before breakfast, First dose on 10/20/24 at 0545 0600 (Given - Provider: Pearl Fernández, [place]) 0549 (Given - Provider: Pearl Fernández, [place]) 0609 (Given - Provider: Pearl Fernández, [place]) rOPINIRole (Requip) tablet 2 mg 2 mg, Oral, Nightly, First dose on 10/20/24 at 2100 2002 (Given - Provider: Pearl Fernández, [place]) 210 (Given - Provider: Pearl Fernández, [place]) senna-docusate sodium (Senokot-S) 8.6-50 MG tablet 2 tablet 2 tablet, Oral, 2 times daily, First dose (after last modification) on Mon10/21/24 at 2100 2003 (Given - Provider: Pearl Fernández RN) 0851 (Given - Provider: Nereida Larsen, [place])2102 (Given - Provider: Pearl Fernández RN) 0742 (Given - Provider: Nereida Larsen, [place]) trospium (Sanctura) tablet 20 mg 20 mg, Oral, 2 times daily before meals, First dose on Mon10/16/24 at 1600, Substituted for oxybutynin (DITROPAN); fesoterodine (TOVIAZ); darifenacin (ENABLEX); solifenacin (VESICARE); tolterodine IR (DETROL); tolterodine ER (DETROL LA). Give one hour before meals. 0600 (Given - Provider: Pearl Fernández RN)1720 (Given - Provider: Kailee Martinez RN) 0549 (Given - Provider: Pearl Fernández RN)1804 (Given - Provider: Nereida Larsen, [place]) 0609 (Given - Provider: Pearl Fernández, [place])1653 (Given - Provider: Nereida Larsen, [place]) PRN Medication Order 10/21/2024 10/22/2024 10/23/2024 bisacodyl (Dulcolax) suppository 10 mg 10 mg, Rectal, Daily PRN, constipation, Starting on Mon10/19/24 at 0605 cyclobenzaprine (Flexeril) tablet 5 mg 5 mg, Oral, 2 times daily PRN, muscle spasms, Starting on Mon10/16/24 at 1544 dextrose 5 % infusion 100 mL/hr, IntraVENous, PRN, Blood sugar less than 70mg/dL, Starting on Mon10/16/24 at 0040, Start infusion following administration of dextrose 50% or glucagon. dextrose 50 % solution 12.5 g 12.5 g, IntraVENous, PRN, low blood sugar, Blood glucose less than 70 mg/dL and patient NOT ALERT or NPO., Starting on Mon10/16/24 at 0040, If patient does not respond within 5 minutes, repeat dose x1. Start D5W at 100 mL/hour until ordering provider can be reached. Repeat blood glucose in 15 minutes. If blood glucose is less than 70 mg/dL, repeat treatment and recheck blood glucose in 15 minutes x2. If using Glucostabilizer, dose as instructed per system. glucagon (human recombinant) injection 1 mg 1 mg, IntraMUSCular, PRN, low blood sugar, Blood glucose less than 70 mg/dL and patient NOT ALERT or NPO and does not have IV access., Starting on Mon10/16/24 at 0040, After administration, attempt intravenous access and start D5W at 100 mL/hr. Repeat blood glucose in 15 minutes x2 and notify provider. glucose oral gel 15 g 15 g, Oral, As needed, low blood sugar, Starting on Mon10/16/24 at 0040, If blood glucose less than 50 mg/dL and patient ALERT and NOT NPO, give 2 tubes glucose gel. If blood glucose less than 70 mg/dL and patient ALERT and NOT NPO, give 1 tube glucose gel. Repeat blood glucose in 15 minutes. If blood glucose is less than 70 mg/dL, repeat treatment and recheck blood glucose in 15 minutes x2 and notify provider. hydrALAZINE (Apresoline) injection 10 mg 10 mg, IntraVENous, Every 6 hours PRN, high blood pressure, for systolic BP>160, Starting on Mon10/16/24 at 1546 iopamidol (Isovue-370) 76 % injection 75 mL (COMPLETED) 75 mL, IntraVENous, IMG once PRN, contrast, Starting on Mon10/22/24 at 1755, For 1 dose 1755 (Given - Provider: Bailey Rios, RT (R)(CT)) naloxone (Narcan) injection 0.4 mg 0.4 mg, IntraVENous, Every 5 min PRN, opioid reversal, respiratory depression, Starting on Mon10/16/24 at 0439, +++ For RR <10, pinpoint pupils, over sedation for opioid reversal - MUST notify television installer helper provider immediately after first dose, may give IM or SQ if no IV access +++ ondansetron (Zofran) injection 4 mg(Linked Group 3) 4 mg, IntraVENous, Every 6 hours PRN, nausea, vomiting, Starting on Mon10/16/24 at 0437, 1st Line. Give IV if patient is unable to take orally. If inadequate response within 60 minutes, proceed to next-line agent or contact provider if no further options ordered. ondansetron ODT (Zofran-ODT) disintegrating tablet 4 mg(Linked Group 3) 4 mg, Oral, Every 8 hours PRN, nausea, vomiting, Starting on Mon10/16/24 at 0437, 1st Line. If inadequate response within 60 minutes, proceed to next-line agent or contact provider if no further options ordered. Patient should allow tablet to dissolve on tongue. Do not remove from blister pack until just before administering. oxyCODONE (Roxicodone) immediate release tablet 10 mg(Linked Group 4) 10 mg, Oral, Every 4 hours PRN, severe pain (7-10), Starting on Mon10/21/24 at 0914 0955 (Given - Provider: Kailee Martinez RN)1520 (Given - Provider: Chelsie Mitchell RN)2003 (Given - Provider: Pearl Fernández RN) 0338 (Given - Provider: Pearl Fernández RN)0850 (Given - Provider: Nereida Larsen RN)1446 (Given - Provider: Nerieda Larsen RN)2103 (Given - Provider: Pearl Fernández RN) 0400 (Given - Provider: Pearl Fernández RN)0751 (Given - Provider: Nereida Larsen RN)1206 (Given - Provider: Nereida Larsen RN)1653 (Given - Provider: Nereida Larsen, [place]) oxyCODONE (Roxicodone) immediate release tablet 5 mg (CANCELED) 5 mg, Oral, Every 4 hours PRN, moderate pain (4-6), severe pain (7-10), Starting on Mon10/18/24 at 2144 0206 (Given - Provider: Pearl Fernández RN)0600 (Given - Provider: Pearl Fernández RN) oxyCODONE (Roxicodone) immediate release tablet 5 mg(Linked Group 4) 5 mg, Oral, Every 4 hours PRN, moderate pain (4-6), Starting on Mon10/21/24 at 0913 polyethylene glycol (PEG) 3350 (Miralax) packet 17 g (CANCELED) 17 g, Oral, Daily PRN, constipation, Starting on 10/19/24 at 0523 0019 (Given - Provider: Pearl Fernández, RN) simethicone (Mylicon) chewable tablet 80 mg 80 mg, Oral, 4 times daily PRN, flatulence, Starting on Mon10/19/24 at 1258 0015 (Given - Provider: Pearl Fernández, [place]) Linked Groups Order Group 1: Insulin Lispro (Humalog) injection 0-6 UnitsJump to med 0-6 Units, SubCUTAneous, 3 times daily with meals, First dose (after last modification) on Mon10/22/24 at 1700, Low Dose Correction Algorithm Glucose: Dose: LESS than 149 No Insulin 150-199 1 Unit 200-249 2 Units 250-299 3 Units 300-349 4 Units 350-400 5 Units Above 400 6 Units Group 2: nicotine (Nicoderm, Step 2) 14 MG/24HR patch 1 patchJump to med 1 patch, TransDERmal, Administer over 24 Hours, Daily, First dose on Mon10/20/24 at 1430, For 42 days, Apply new patch to nonhairy, clean, dry skin on the upper body or upper outer arm. Rotate patch sites. Notify Pharmacy if patient or provider prefers patch to be removed at bedtime and replaced in the morning. Followed by nicotine (Nicoderm, Step 3) 7 MG/24HR patch 1 patchJump to med 1 patch, TransDERmal, Administer over 24 Hours, Daily, First dose on Mon12/01/24 at 0900, For 14 days, Apply new patch to nonhairy, clean, dry skin on the upper body or upper outer arm. Rotate patch sites. Notify Pharmacy if patient or provider prefers patch to be removed at bedtime and replaced in the morning. Group 3: ondansetron ODT (Zofran-ODT) disintegrating tablet 4 mgJump to med 4 mg, Oral, Every 8 hours PRN, nausea, vomiting, Starting on Mon10/16/24 at 0437, 1st Line. If inadequate response within 60 minutes, proceed to next-line agent or contact provider if no further options ordered. Patient should allow tablet to dissolve on tongue. Do not remove from blister pack until just before administering. Or ondansetron (Zofran) injection 4 mgJump to med 4 mg, IntraVENous, Every 6 hours PRN, nausea, vomiting, Starting on Mon10/16/24 at 0437, 1st Line. Give IV if patient is unable to take orally. If inadequate response within 60 minutes, proceed to next-line agent or contact provider if no further options ordered. Group 4: oxyCODONE (Roxicodone) immediate release tablet 5 mgJump to med 5 mg, Oral, Every 4 hours PRN, moderate pain (4-6), Starting on Mon10/21/24 at 0913 And oxyCODONE (Roxicodone) immediate release tablet 10 mgJump to med 10 mg, Oral, Every 4 hours PRN, severe pain (7-10), Starting on Mon10/21/24 at 0914 FOR RECORDS PERTAINING TO PATIENTS WHO ARE OR HAVE BEEN ENROLLED IN A CHEMICAL DEPENDENCY/SUBSTANCEABUSE PROGRAM, SOME INFORMATION MAY BE OMITTED. This clinical summary was aggregated from multiple sources. Caution should be exercised in using it in the provision of clinical care. This summary normalizes information from multiple sources, and as a consequence, information in this document may materially change the coding, format and clinical context of patient data. In addition, data may be omitted in some cases. CLINICAL DECISIONS SHOULD BE BASED ON THE PRIMARY CLINICAL RECORDS. [employer] provides no warranty or guarantee of the accuracy or completeness of information in this document.
--- NOTE | 2025-01-21 19:43 | US_ITS ---
PROCEDURE: VENOUS DUPLEX IMAG/LIMITED/UNI 01/21/2025 REASON FOR EXAM: 54-year-old female with calf pain. Fell 4 days ago. TECHNIQUE: Procedure Code: USVDUL Modality: US Procedure: VENOUS DUPLEX IMAG/LIMITED/UNI COMPARISON: None. FINDINGS: DEEP VEINS: The common femoral, femoral, and popliteal veins are echolucent and compressible. These vessels demonstrate respiratory variation and augmentation. There is normal color Doppler flow throughout. The visualized calf veins are also patent. SUPERFICIAL VEINS: The visualized greater saphenous vein is patent. SOFT TISSUES: No popliteal fossa cyst or other abnormalities. US/Venous Duplex Imag/Limited/Uni IMPRESSION: No deep venous thrombosis in the left lower extremity. Reading Location: [id number]
[2025-01-21 20:44] VITALS: BP 98/64; PULSE 78; RESP 14; TEMP 36.6; O2SAT 99
--- NOTE | 2025-01-21 23:34 | EDS_ITS ---
HPI History of Present Illness Chief Complaint: Lower Extremity Injury Narrative Narrative: Patient is a 54-year-old female presenting to the emergency department for left lower extremity pain. Patient has a past medical history of pancreatic cancer and is currently being treated with chemotherapy, last treatment was a week ago and she is due for another treatment tomorrow morning. States that 4 days ago she tripped on a cord causing her to fall onto her left leg. He denies hitting her head or any loss of consciousness. Denies any use of oral anticoagulation. Denies any headache, neck pain or back pain. States that she was able to get up on her own. She is on morphine and oxycodone at home for cancer-related pain. States has been taking this for pain control for her leg as well. She states that she uses a rollator to ambulate. She noticed today that her left ankle and calf were causing her pain and decided to come be evaluated. [facility] Medical History Pancreatic cancer Home Medications ?Medication ?Instructions ?Recorded ?Last Taken ?Type cefuroxime axetil 500 mg tablet 500 mg PO BID #14 tabs 09/03/22 Unknown Rx Allergy/AdvReac Type Severity Reaction Status Date / Time soap Allergy Hives Verified 01/21/25 18:53 tramadol Allergy Rash Verified 01/21/25 18:53 Social History Smoking Status: Current every day smoker tobacco type: cigarettes ROS ROS ED ROS Narrative see HPI EXAM Physical Exam Narrative Exam Narrative: Vital signs: Reviewed General: Alert and orientedx3. No acute distress HEENT: Head is normocephalic and atraumatic, sinuses nontender, pupils equal round and reactive. Nares are patent. Oropharynx and throat exams normal. Neck: Supple without lymphadenopathy nontender Cardiovascular: Regular rate and rhythm, no murmurs. No rubs or gallops. Normal S1 and S2 Respiratory: Clear to auscultation bilaterally. No wheezes, rales, rhonchi Abdominal: Soft and nontender. Normal bowel sounds. No guarding or rebound. Nonsurgical abdomen Extremities: There is some very mild swelling to the left ankle. There is no tenderness to palpation of the first, fifth metatarsals or midfoot. There is no ecchymosis of the midfoot. DP and PT pulses are intact bilaterally. There is mild tenderness to palpation of the lateral malleolus, no tenderness to palpation of the medial malleolus. Mild tenderness to palpation of the anterior jain diffusely. There is no ecchymosis, abrasions or erythema noted. There is no tenderness to palpation of the posterior calf. No warmth or palpable cords. No tenderness to palpation of the left knee, femur or hips. Hips are stable and nontender to palpation. Extremities are otherwise atraumatic and nontender to palpation with normal active range of motion. Normal range of motion. Normal sensation. Skin: No rash or redness. The rest of the physical exam is unremarkable Const Vital Signs: 01/21/25 18:53 01/21/25 20:44 Temperature 96.9 F L 98 F Temperature Source Temporal Pulse Rate 100 78 Respiratory Rate 18 14 Blood Pressure 116/90 H 98/64 Blood Pressure Mean 98 75 Pulse Ox 99 99 Oxygen Delivery Method Room Air MDM MDM MDM Narrative Medical decision making narrative: Patient is a 54-year-old female presenting to the emergency department for left leg pain after a fall 4 days ago. Patient was seen and examined. Vitals are stable. Patient resting bed comfortably no acute distress. Patient reports tripping on a cord, purely mechanical fall. No indication for labs or EKG. Patient states that she took her oxycodone and morphine prior to arrival. Xrays of the tib fib and ankle were ordered based on physical exam findings. X-rays were evaluated by myself and showed no evidence of fracture or dislocation. Radiology read in agreement. DVT ultrasound was also obtained given the mild swelling noted and hypercoagulable state given her cancer history. This is negative for DVT. Patient was updated on the negative results and given RICE therapy instructions. Patient discharged from the Emergency Department. I do not feel that the patient's evaluation reveals any acute reason for admission at this time. I instructed them to either follow-up with their primary care physician or promptly return to the Emergency Department for reevaluation should symptoms worsen or new symptoms develop. I explained what symptoms would indicate the need to return to the emergency department. Shared decision making was used. The patient voiced understanding of the treatment plan and is agreeable with it. Clinical impression: Left leg pain History & Record Review Discussion w/independent historian: Patient Radiography X-Ray: Read by ED Physician, Normal and No Fracture Diagnostic Testing: Clinical Impression(s) from Imaging Studies Ankle X-Ray 01/21/25 19:35 IMPRESSION: NO ACUTE FRACTURE OR DISLOCATION. Reading Location: [id number] Tibia/Fibula X-Ray 01/21/25 19:35 IMPRESSION: NO ACUTE FRACTURE OR DISLOCATION. Reading Location: [facility] Venous Duplex 01/21/25 19:43 IMPRESSION: No deep venous thrombosis in the left lower extremity. Reading Location: [facility] Discharge Plan Triage Chief Complaint: Lower Extremity Injury ED Provider: Meghan Saenz Dx/Rx/DC Orders Clinical Impression: Left leg pain Instructions: Self-Care for Strains and Sprains, ED Sprain Ankle W X Ray, ED RICE Prescriptions: No Action cefuroxime axetil 500 mg tablet 500 mg PO BID Qty: 14 0RF Primary Care Provider: Pauline Dawson Referrals: Pauline Dawson, [facility] [Primary Care Provider, Family Practice] - As soon as possible Activity Restrictions/Additional Instructions: Your evaluation in the Emergency Department did not reveal any acute reason for admission. However, I want to emphasize that you may be early in the course of a disease process or illness even if it is not present. For this reason you should follow-up within 24 hours for reevaluation with either your primary care physician or if necessary back here in the Emergency Department. You should return to the Emergency Department immediately if your symptoms worsen or new symptoms develop. Print Language: Hong [place]er Disposition Disposition: Home, Self Care Discharge Date/Time: 01/21/25 20:45
== END 2025-01-21 20:45 | disposition home or self-care (01) ==
PROVIDERS: Emergency Provider Student in an Organized Health Care Education/Training Program; PCP Nurse Practitioner Family; Visit Provider Student in an Organized Health Care Education/Training Program
DX: M79.605 Pain in left leg (principal); C25.9 Malignant neoplasm of pancreas, unspecified; M79.89 Other specified soft tissue disorders; G89.3 Neoplasm related pain (acute) (chronic); W18.09XA Striking against other object with subsequent fall, 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; Z79.899 Other long term (current) drug therapy; F17.210 Nicotine dependence, cigarettes, uncomplicated
CPT/HCPCS: 73590; 73610; 93971; 99282